=== PATIENT | female | born 1955 | race Caucasian/White ===

== ENCOUNTER 2016-10-14 14:28 | Inpatient (IN) | payer MEDICARE, OTHER ==
[2016-10-14] MEDS ORDERED: HYDROcodone/APAP 5-325MG 1 EACH TAB PO STA (15:02)
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
[2016-10-14 16:10] LABS: Appearance,Urine Clear (Clear); Bilirubin,Urine Negative (Negative); Glucose,Urine (UA) Negative (Negative); Ketones,Urine Negative (Negative); Leukocyte Esterase,Urine Negative (Negative); Nitrite,Urine Negative (Negative); PH, Urine 6.5 (5.0-8.0); Protein,Urine Negative (Negative); Specific Gravity,Urine 1.021 (1.001-1.035); UA Billing (MACRO vs. MICRO) CHEM; Urobilinogen,Urine <2.0 mg/dL (<2.0)
[2016-10-14] MEDS ORDERED: LORazepam 1 MG TAB PO STA (17:50)
[2016-10-14] MEDS ORDERED: LORazepam 1 MG TAB PO PRN (18:43)
[2016-10-14 19:46] LABS: Appearance,Urine Clear (Clear); Bilirubin,Urine Negative (Negative); Glucose,Urine (UA) Negative (Negative); Ketones,Urine Negative (Negative); Leukocyte Esterase,Urine Negative (Negative); Nitrite,Urine Negative (Negative); PH, Urine 6.5 (5.0-8.0); Protein,Urine Negative (Negative); Specific Gravity,Urine 1.022 (1.001-1.035); UA Billing (MACRO vs. MICRO) CHEM; Urobilinogen,Urine <2.0 mg/dL (<2.0)
[2016-10-14] MEDS: ACETAMINOPHEN TAB 325 MG TAB PO PRN (20:47)
[2016-10-14] MEDS ORDERED: traZODone HCL 100 MG TAB PO SCH (21:00)
--- NOTE | 2016-10-14 23:17 | P.HPMEDMHU ---
History of Present Illness H&P Date: 10/14/16 Chief Complaint: Suicidal ideation Patient is a 61-year-old female significant history of bipolar disorder and PTSD who apparently lost her son to overdose about 9 months ago, depressive symptoms worsened she stopped taking her medication and begun hearing voices and Became suicidal, she had a plan of drowning hence she was admitted to the psych unit. Patient was chronic back pain and according to her had multiple spine surgeries she also has migraine headaches for which she takes Imitrex, currently she has mild headache in the bifrontal region per Patient, was mild photophobia. She states she usually takes Tylenol No #3 for her back pain. Review of Systems Constitutional: Patient reports no fever, no chills, no weight changes, no change in appetite Eyes: Patient reports no double vision, no visual changes ENT: Patient reports no rhinorrhea, no post nasal drip, no sore throat Cardiovascular: Patient reports no chest pain, no edema, no palpitations, no syncope, no orthopnea, no paroxysmal nocturnal dyspnea. Respiratory: Patient reports no dyspnea, no cough, no wheeze Gastrointestinal: Patient reports no nausea, no vomiting, no constipation, no diarrhea Genitourinary: Patient reports no dysuria, no urinary frequency, no hematuria. Musculoskeletal: Patient reports no unusual joint pain, no joint swelling or weakness. she reports chronic low back pain Patient reports no muscular pain. Psychiatric: Patient reports no changes in mood, no sleeping problems. Patient reports no changes in memory. Endocrine: Patient reports no thirst, no polyuria, no cold intolerance, no heat intolerance. Neurological: Patient reports no unusual paresthesias, no seizures, no paresis , no paralysis, no facila droop, has mild headache. Heme/Lymphatic: Patient reports no easy bruising, no bleeding tendency, no lymphadenopathy. Allergic/ Immunologic: Patient reports no recent allergic reactions or immunologic history. Skin: Patient reports no rashes or unusual lesions. Past Medical History Past Medical History: Fibromyalgia, Hypertension, Sleep Apnea/CPAP/BIPAP Additional Past Medical History / Comment(s): bipolar; borderline personality; antisocial; eating disorder, PTSD History of Any Multi-Drug Resistant Organisms: None Reported, MRSA Date of last positivie culture/infection: 2004 MDRO Source:: unknown Past Surgical History: Back Surgery Additional Past Surgical History / Comment(s): neck surgery Past Anesthesia/Blood Transfusion Reactions: Unable to Obtain Past Psychological History: Anxiety, Bipolar, Depression, PTSD Smoking Status: Current every day smoker Past Alcohol Use History: None Reported Past Drug Use History: Cocaine Medications and Allergies Home Medications Medication Instructions Recorded Confirmed Type traZODone HCL 300 mg PO HS 09/14/13 10/14/16 History Acetaminophen-Codeine 300-30mg 1 tab PO BID 10/14/16 10/14/16 History [Tylenol #3] Aspirin 325 - 650 mg PO QID PRN 10/14/16 10/14/16 History LORazepam [Ativan] 1 mg PO BID 10/14/16 10/14/16 History Allergies Allergy/AdvReac Type Severity Reaction Status Date / Time latex Allergy Unknown Rash/Hives Verified 10/14/16 15:31 Physical Exam Vitals: Vital Signs Temp Pulse Resp BP Pulse Ox 10/14/16 19:18 98.2 F 80 18 125/75 99 10/14/16 14:37 98.1 F 79 20 127/60 98 Intake and Output 10/14/16 10/14/16 10/14/16 06:59 14:59 22:59 Other: Weight 68.039 kg 68.6 kg Patient Weight 10/15/16 06:59 Weight 68.6 kg - Constitutional General appearance: cooperative, disheveled, no acute distress - EENT Eyes: PERRLA, photophobia, dentition normal, normal appearance Ears: bilateral: normal, negative: dull - Neck Neck: no lymphadenopathy, normal ROM, no rigidity, no thyromegaly Carotids: bilateral: upstroke normal Thyroid: bilateral: normal size - Respiratory Respiratory: bilateral: CTA, negative: rhonchi, wheezing, prolonged expiration - Cardiovascular Rhythm: regular Heart sounds: normal: S1, S2 Abnormal Heart Sounds: no systolic murmur, no diastolic murmur, no S3 Gallop, no S4 Gallop - Gastrointestinal General gastrointestinal: normal bowel sounds, no organomegaly, scaphoid, soft, no tenderness - Integumentary Integumentary: no jaundiced, normal, normal turgor, no rash, no ulcer - Neurologic Neurologic: CNII-XII intact - Musculoskeletal Musculoskeletal: gait normal, strength equal bilaterally - Psychiatric Psychiatric: A&O x's 3 Cranial Nerve Examination - Cranial Nerves Cranial Nerve II- Optic: Intact Cranial Nerve III- Oculomotor: Intact Cranial Nerve IV- Trochlear: Intact Cranial Nerve V- Trigeminal: Intact Cranial Nerve - Abducens: Intact Cranial Nerve VII- Facial: Intact Cranial Nerve VIII- Auditory: Intact Cranial Nerve IX- Glossopharyngeal: Intact Cranial Nerve X- Vagus: Intact Cranial Nerve XI- Accessory: Intact Cranial Nerve XII- Hypoglossal: Intact Results Labs: Abnormal Lab Results - Last 24 Hours (Table) 10/14/16 Range/Units 16:07 U Benzodiazepines Scrn Detected H (NotDetected) Assessment and Plan (1) Suicidal ideation Narrative/Plan: Patient with the plan of drowning herself and exhibited significant depressive symptoms, we will defer to psychiatry for treatment and care. Status: Acute (2) Bipolar 1 disorder, depressed, severe Narrative/Plan: Again the patient stated depressed with suicidal ideation we will defer psychiatry for treatment and care Status: Acute (3) Cocaine abuse Narrative/Plan: Patient's admits to smoking cocaine for quite sometime, I did extensively claims counsel her regarding cessation, we would defer the psychiatric for treatment and care Status: Acute (4) Nicotine addiction Narrative/Plan: Patient admits to smoking again was counseled extensively regarding smoking cessation for more than 20 minutes Status: Acute (5) Benign essential hypertension Narrative/Plan: Per records patient has hypertension however she is not on any blood pressure medication, we would suggest to monitor her vitals signs and place her on 2 g salt diet and 81 mg aspirin for primary prevention. Status: Chronic (6) Lumbago Narrative/Plan: According to the patient she has chronic low back pain and underwent spine surgery and she takes Tylenol 3 chronically for her back pain, we will defer the psychiatry in view of her drug addiction. Status: Acute
[2016-10-15] MEDS: ACETAMINOPHEN TAB 325 MG TAB PO PRN ×4 (06:46→20:03)
[2016-10-15] MEDS ORDERED: NICOTINE 14MG/24HR PATCH TRANSDERM SCH (09:00)
[2016-10-15] MEDS: FLUoxetine HCL 10 MG CAP PO SCH (10:30)
[2016-10-15] MEDS: HYDROcodone/APAP 5-325MG 1 EACH TAB PO PRN ×2 (11:41→23:42)
[2016-10-15 12:09] LABS: ALT 26 U/L (9-52); AST 16 U/L (14-36); Alkaline Phosphatase 75 U/L (38-126); Blood Urea Nitrogen 27 mg/dL (7-17); Calcium 9.4 mg/dL (8.4-10.2); Carbon Dioxide 18 mmol/L (22-30); Glucose 82 mg/dL (74-99); Non-African American GFR(MDRD) >60 (>60 ml/min/1.73 sqM); Potassium 4.3 mmol/L (3.5-5.1); Sodium 145 mmol/L (137-145); Total Bilirubin 0.3 mg/dL (0.2-1.3); Total Protein 6.6 g/dL (6.3-8.2)
[2016-10-15 12:11] LABS: Anion Gap 12 mmol/L; Chloride 115 mmol/L (98-107)
[2016-10-15 12:24] LABS: Anisocytosis Slight; Basophils % (A) 0 %; CH 29.1; CHCM 31.9; Eosinophils # (A) 0.1 k/uL (0-0.7); Eosinophils % (A) 2 %; HCT 37.8 % (34.0-46.0); HDW 2.82; HGB 12.3 gm/dL (11.4-16.0); Hypochromasia Slight; Luc # (Auto) 0.14; Luc % (Auto) 3; Lymphocytes # (A) 2.1 k/uL (1.0-4.8); Lymphocytes % (A) 41 %; MCH 29.9 pg (25.0-35.0); MCHC 32.5 g/dL (31.0-37.0); MCV 91.9 fL (80.0-100.0); Mean Platelet Volume 7.5; Monocytes # (A) 0.3 k/uL (0-1.0); Monocytes % (A) 6 %; Neutrophils # (A) 2.5 k/uL (1.3-7.7); Neutrophils % (A) 49 %; RBC 4.12 m/uL (3.80-5.40); RDW 16.3 % (11.5-15.5); WBC 5.1 k/uL (3.8-10.6); WBC (Perox) 5.38
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
[2016-10-15] MEDS: LORazepam 0.5 MG TAB PO SCH (20:02)
[2016-10-15] MEDS: traZODone HCL 100 MG TAB PO SCH (20:02)
[2016-10-15] MEDS: OLANZapine 2.5 MG TAB PO SCH (20:02)
[2016-10-16] MEDS: ACETAMINOPHEN TAB 325 MG TAB PO PRN ×3 (06:22→17:42)
[2016-10-16] MEDS: FLUoxetine HCL 10 MG CAP PO SCH (08:44)
[2016-10-16] MEDS: LORazepam 1 MG TAB PO SCH (08:44)
[2016-10-16] MEDS: HYDROcodone/APAP 5-325MG 1 EACH TAB PO PRN ×3 (08:44→21:04)
--- NOTE | 2016-10-16 13:11 | P.PN ---
Progress Note - Text Interval History: Patient is a 61-year-old female who was admitted for suicidal plan to drowned herself on December 18. Patient today was able to report that she did well when she was on the combination of Cymbalta plus lithium in [place] , she was also taking Seroquel at that time. Patient states that the auditory hallucinations are slightly decreased today, she did not sleep through the night. Patient reports that she continues to have the plan to drowned herself on the anniversary of her son's and states that she was also thinking about suicide yesterday while in the hospital. Patient reports that she is trying to eat better and is trying to eat something at each meal. Patient remains despondent, hopeless and states she has little interest or energy to do things. Patient reported that her right ankle continues to bother her, 3 weeks ago she states she "rolled" her ankle saw her primary care doctor but no x-rays were taken at that time. Patient continues to use a walker here and states that her right ankle continues to cause her pain and difficulty when walking. Patient reports that her pain continues to be an issue for her and requested that the [place] be every 8 hours as her pain is more problematic during the day than it is at night. Patient reported that she is continuing to feel anxious and restless but this is not increased with the decrease in her Ativan. Mental Status: Appearance/Attitude: Patient is dressed in a hospital gown and using a walker, she makes good eye contact and is cooperative, patient was noted to be wearing a man's shirt and she stated this was her son's. Behavior: Patient did not display any psychomotor agitation or retardation Speech/Language: Patient's speech is more spontaneous today, of normal volume and rhythm and she is coherent. Thought Process: Patient is goal-directed and there is no evidence of any circumstantial or tangential thought and no loose associations or flight of ideas. Thought Content: Patient reports the auditory hallucinations are slightly decreased today, no visual hallucinations and no delusions or paranoid ideation were elicited. Patient continues to feel depressed, hopeless and helpless and states that her life is not worth living without her son. Patient continues to report somatic complaints regarding her chronic pain, pain in her right ankle and generally not feeling well. Patient states that she is trying to eat something at each meal and reports that her sleep remains disrupted and not restful. Suicidal/Homicidal Ideation: Patient voiced to me that she had suicidal thoughts yesterday about trying to kill herself, she continues to have a plan to drowned herself on the anniversary of her son's and states that she sees no reason to go on with her life, she denies any current homicidal ideation. Sensorium/Cognition: Patient is alert, oriented to person, place, and time and her memory is grossly intact. Mood/Affect: Patient's mood remains depressed and despondent and her affect is blunted Insight/Judgement: Patient's insight and judgment are poor Assessment: Patient today was able to report that the combination of Cymbalta and lithium that she was placed on in [place] did work for her depression and states that she felt better on those medications. She was also on Seroquel at the time, however this was not effective for her current auditory hallucinations. Patient states her medications were changed when she returned to [place]. Patient continues to express suicidal ideation, continues to report having a plan to drowned herself on December 18 the anniversary of her son 's . She reports that she is trying to eat 3 times a day and she reports continued disrupted sleep. Patient also continues to report complaints of pain and requested that the frequency of her [place] be adjusted. Patient's TSH was noted to be low, her free T4 is also low and she states that she may have been on Synthroid in the past. Plan: The patient was able to report a better response to Cymbalta and lithium I will discontinue her Prozac and begin Cymbalta 30 mg in the morning starting tomorrow to target her depression. I will begin with him carbonate 150 mg twice a day to stabilize her mood and target her suicidal ideation. Patient reports that the Zyprexa has been more effective in decreasing her auditory hallucinations and we'll continue at 2.5 mg at bedtime and consider an increase to 5 mg at bedtime should she continue to have auditory hallucinations. Patient 's trazodone will be continued at 200 mg at bedtime and as her sleep improves we 'll hopefully be able to decrease this medication due to the patient's multiple falls in the past. I also increased the frequency of her [place] to 3 times a day as needed and she reports that 12 hour span's between the medication are not effective for her. Patient's Ativan as currently at 1.5 mg total per day and will continue her taper and on Wednesday will taper 2.5 mg twice a day. She patient tolerated the lithium carbonate will increase her dose to 300 mg twice a day and obtain serum level of lithium several days later. Patient was encouraged to continue attending groups and activities, was encouraged to continue to try to improve her nutrition. Medical consultants will evaluate her thyroid results, and also asked them to evaluate her right ankle and the need for any further studies. Patient continues to require inpatient hospitalization due to her psychotic symptoms, suicidal ideation with plan and depressed mood.
--- NOTE | 2016-10-16 15:57 | P.PN ---
Subjective Principal diagnosis: Patient seen and examined today per RN request to evaluate right ankle and abnormal labs 61-year-old female with history of bipolar disorder and PTSD who apparently lost her son to overdose about 9 months ago, depressive symptoms worsened she stopped taking her medication and begun hearing voices and Became suicidal, she had a plan of drowning hence she was admitted to the psych unit. Upon doing routine labs, she was found to have hypothyroidism, patient admits to remote history of hypothyroidism and that she was started on levothyroxin at one point in her life. However, when she established a new PCP few years ago, she was found to have polypharmacy and she believes that levothyroxine was stopped by her doctor in an attempt to decrease the number of medications she was taking. She denies any cold intolerence or weight gain. but admits to depressed mood, constipation, and generalized fatigue. She is not aware of any recent workup for this problem. She is not currently taking any hormonal therapy for her thyroid problem. She is not aware of any hormonal imbalance in her body other than the thyroid gland, and does not recall a diagnosis of central hypothyroidism. She denies any weight gain, but reports some subjective weight loss due to poor appetite. Patient also reporting right ankle pain of 3 weeks duration after sustaining a fall at home and twisting her right foot. She reports that she was seen by her PCP at that time, and was told there was no fracture, however she is voicing concerns as pain is not subsiding, she is reporting an achy pain of 8/10 in severity localized to the right ankle non-radiating, worse with movement and weight bearing, she has been using a cane at home, and a walker while inpatient to avoid full weight bearing. she reports morning stiffness that lasts all day, patient is getting some relief of her pain with tylenol #3 or norco. minimal swelling of the right ankle, no bruising or open wounds. Objective - Vital Signs Vital signs: Vital Signs Temp 98.1 F 10/16/16 06:39 Pulse 59 L 10/16/16 06:39 Resp 18 10/16/16 06:39 BP 108/54 10/16/16 06:39 Pulse Ox 99 10/14/16 19:18 Constitutional: vital signs stable, Not in acute distress, conversant Neck: Supple, no thyromegally Extremities: No digital cyanosis or clubbing, peripheral pulses palpable and equal over bilateral rdorsalis pedis arteries, no calf muscle tenderness, no leg edema there is minimal ankle swelling, full passive and active range of motion of bilateral feet, however, strength exam over right foot is limited due to ankle pain. No crepitation, no redness, no bruising, no point tenderness over the medial or lateral malleoli. Labs reviewed Right ankle xray reviewed - Labs CBC & Chem 7: 10/15/16 11:16 10/15/16 11:16 Labs: Abnormal Lab Results - Last 24 Hours (Table) 10/15/16 Range/Units 11:15 Free T4 0.74 L (0.78-2.19) ng/dL Assessment and Plan (1) Central hypothyroidism Narrative/Plan: This is incidental finding upon routine blood work Suspicion for central hypothyroidism Workup includes ruling out a coexisting adrenal insufficiency check cosyntropin stimulation test (AM cortisol, followed by ACTH injection , then timely testing cortisol level in 30 and then 60 minutes after injection) check Prolactine (to r/o pituitary problems) check FSH (r/o hypogonadism) check thyroid peroxidase antibodies patient will also benefit from MRI of the brain to r/o any masses recommendation to follow up with Endocrinology as OP patient will require 112.5 mcg of levothyroxine daily , and then to recheck TFTs in 4 weeks. Adrenal insufficiency should be ruled out first (with consyntropin stimulation testing) prior to initiating thyroid hormone replacement. Status: Acute (2) Right ankle sprain Narrative/Plan: unlikely to have acute fracture i reviewed the xray image, await radiology report continue with pain control Physical therapy evaluation for further recommendations regarding therapeutic exercising and weightbearing right ankle brace could be beneficial Status: Acute (3) Depression Narrative/Plan: Management per psychiatry Status: Acute (4) Suicidal ideation Narrative/Plan: Management per psychiatry Status: Acute
--- NOTE | 2016-10-16 16:05 | XR ---
Right ankle HISTORY: Remote history of trauma and pain 2 views of the right ankle No comparisons Bone mineralization is reduced. Some spurring present at the tibiotalar joint with joint space loss. There is a plantar calcaneal spur. Alignment is maintained. Soft tissue swelling is noted. IMPRESSION: Soft tissue swelling, osteoarthritis. Osteopenia.
[2016-10-16] MEDS: traZODone HCL 100 MG TAB PO SCH (20:17)
[2016-10-16] MEDS: LITHIUM CARBONATE 150 MG CAP PO SCH (20:17)
[2016-10-16] MEDS: LORazepam 0.5 MG TAB PO SCH (20:17)
[2016-10-16] MEDS: OLANZapine 2.5 MG TAB PO SCH (20:17)
[2016-10-17] MEDS: HYDROcodone/APAP 5-325MG 1 EACH TAB PO PRN ×3 (07:41→22:32)
[2016-10-17] MEDS ORDERED: WATER FOR INJECTION, STERILE 10 ML IV ONE (07:46)
[2016-10-17] MEDS ORDERED: COSYNTROPIN 0.25 MG VIAL IVP ONE (08:00)
[2016-10-17] MEDS ORDERED: COSYNTROPIN 0.25 MG VIAL IM ONE (08:00)
[2016-10-17] MEDS: LITHIUM CARBONATE 150 MG CAP PO SCH ×2 (09:25→20:20)
[2016-10-17] MEDS: DULoxetine HCL 30 MG CAPSULE.DR PO SCH (09:25)
[2016-10-17] MEDS: ACETAMINOPHEN TAB 325 MG TAB PO PRN ×2 (09:25→16:48)
[2016-10-17] MEDS: LORazepam 1 MG TAB PO SCH (09:28)
--- NOTE | 2016-10-17 11:57 | P.PN ---
Progress Note - Text Interval history: The patient is found in group she follows me to an interview room. She reports that she continues to feel extremely depressed she feels hopeless and suicidal. She states it is her plan to kill herself on the anniversary of her son's . She explains he due to a medication overdose. We reviewed her current medications. She has some concern that the Cymbalta will be too costly and this will deserve further exploration in terms of her co-pay. We spent some time trying to cognitively reframe her current thinking and generate some alternatives. Mental status exam: The patient is alert she is dressed in hospital attire with her own sweater over top. Eye contact is appropriate. She endorses a sad depressed mood with ongoing suicidal ideation. She is tearful throughout the session. She is soft-spoken she demonstrates no verbal or physical aggressiveness. She demonstrates no pressured speech. Thought process is linear she demonstrates no tangential thinking loose associations or flight of ideas. There is no report or evidence of psychosis. She is fully oriented to person place and date. Plan: The patient will continue on her current psychotropic medications. We will monitor for safety and encourage her participation in the milieu. Vital signs reviewed. She requires continued psychiatric hospitalization.
--- NOTE | 2016-10-17 16:55 | P.PN ---
Subjective Principal diagnosis: Patient seen and examined today in follow up for central hypothyroidism, reviewing workup to rule out glucocorticoid deficiency 61-year-old female with history of bipolar disorder and PTSD who apparently lost her son to overdose about 9 months ago, depressive symptoms worsened she stopped taking her medication and begun hearing voices and Became suicidal, she had a plan of drowning hence she was admitted to the psych unit. Patient was seen and examined today, continues to report right ankle pain when moving. I discussed with her blood work results and explained in details. Patient agrees on starting levothyroxin and I counseled her regarding proper way of taking the medication. Patient reports chronic headache "since she was a child" No recent changes in character or severity, no associated vision changes or hearing changes or any focal neurologic deficits. Patient denies any nausea or vomiting Objective - Vital Signs Vital signs: Vital Signs Temp 98.2 F 10/17/16 07:06 Pulse 50 L 10/17/16 07:06 Resp 16 10/17/16 07:06 BP 109/55 10/17/16 07:06 Pulse Ox 99 10/14/16 19:18 Constitutional: vital signs stable, Not in acute distress, conversant Lungs: Clear to auscultation bilaterally, clear to percussion, normal respiratory effort no use of accessory muscles Extremities: no leg edema bilaterally, no calf muscle tenderness Psych: Alert, oriented to place, person and time labs and imaging reviewed - Labs CBC & Chem 7: 10/15/16 11:16 10/15/16 11:16 Assessment and Plan (1) Central hypothyroidism Narrative/Plan: cosyntropin stimulation test was within normal limit, no suspicion for adrenal insufficiency other hormones related to the pituitary gland were within normal limits ( Prolactine, FSH, thyroid peroxidase antibodies) patient reports long history of chronic headache "since childhood " with no recent changes in character or severity, patient might benefit from MRI of the brain as an outpatient recommendation to follow up with Endocrinology as OP start on 112.5 mcg of levothyroxine daily , and then to recheck TFTs in 4 weeks. Status: Acute (2) Osteoarthritis of right ankle Narrative/Plan: Right ankle imaging reviewed no acute fracture Evidence of osteoarthritis Pain control with Tylenol Status: Acute (3) Right ankle sprain Narrative/Plan: Physical therapy evaluation for further recommendations regarding therapeutic exercising and weightbearing right ankle brace could be beneficial Status: Acute (4) Depression Narrative/Plan: Management per psychiatry Status: Acute (5) Suicidal ideation Narrative/Plan: Management per psychiatry Status: Acute
[2016-10-17] MEDS: traZODone HCL 100 MG TAB PO SCH (20:20)
[2016-10-17] MEDS: LORazepam 0.5 MG TAB PO SCH (20:20)
[2016-10-17] MEDS: OLANZapine 2.5 MG TAB PO SCH (20:20)
[2016-10-18] MEDS: ACETAMINOPHEN TAB 325 MG TAB PO PRN ×3 (05:51→20:23)
[2016-10-18] MEDS: LEVOTHYROXINE 112 MCG TAB PO SCH (05:52)
[2016-10-18] MEDS: HYDROcodone/APAP 5-325MG 1 EACH TAB PO PRN ×3 (08:02→23:06)
[2016-10-18] MEDS: DULoxetine HCL 30 MG CAPSULE.DR PO SCH (10:52)
[2016-10-18] MEDS: LITHIUM CARBONATE 150 MG CAP PO SCH ×2 (10:52→20:22)
[2016-10-18] MEDS: LORazepam 1 MG TAB PO SCH (10:54)
--- NOTE | 2016-10-18 12:36 | P.PN ---
Progress Note - Text Interval history: The patient's found the hallway she follows me to an interview room. She reports her mood continues to be depressed she is tearful at times. Continues to read the anniversary of her son's . She did have a pleasant visit from her son and daughter last evening. She reports feeling anxious throughout the day and asked for more Ativan area instead we decided to change the bedtime dose to earlier in place and at 5 PM. She has no other questions regarding her medications. She has been selectively attending groups. Mental status exam: The patient is alert she is dressed in hospital gown with her own clothing over top. She is ambulating with use of a walker today. Eye contact is appropriate speech is fluent spontaneous nonpressured. She does not appear hypomanic or manic. She endorses a depressed mood with continued consideration of suicide. She does make some attempts during the interview to foster some future oriented thinking but ultimately feels overwhelmed by the of her son. Insight and judgment limited. She demonstrates no verbal or physical aggressiveness. Affect is mainly constricted. Plan: The patient will continue on her current medications we will change the timing of the 0.5 Ativan from bedtime to 5 PM. Internal medicine is following the patient closely their input is appreciated. She does require imaging as an outpatient for presumed central hypothyroidism. We will continue to monitor her for safety she is encouraged to participate in the milieu.
[2016-10-18 16:38] VITALS: BMI 27.9
[2016-10-18] MEDS ORDERED: LORazepam 0.5 MG TAB PO STA (18:43)
[2016-10-18] MEDS: OLANZapine 2.5 MG TAB PO SCH (20:22)
[2016-10-18] MEDS: traZODone HCL 100 MG TAB PO SCH (20:22)
[2016-10-19] MEDS: LEVOTHYROXINE 112 MCG TAB PO SCH (05:40)
[2016-10-19] MEDS: ACETAMINOPHEN TAB 325 MG TAB PO PRN ×3 (05:42→21:10)
[2016-10-19] MEDS: HYDROcodone/APAP 5-325MG 1 EACH TAB PO PRN ×3 (09:00→22:43)
[2016-10-19] MEDS: DULoxetine HCL 30 MG CAPSULE.DR PO SCH (09:02)
[2016-10-19] MEDS: LORazepam 1 MG TAB PO SCH ×2 (09:02→15:58)
[2016-10-19] MEDS: LITHIUM CARBONATE 150 MG CAP PO SCH (09:02)
--- NOTE | 2016-10-19 11:39 | P.PN ---
Progress Note - Text Interval History: Patient is a 61-year-old female who was seen today, she reports that she is feeling anxious and still having panic attacks. She requested her Ativan be changed to earlier in the evening. Patient states that she visited with her son and daughter over the weekend and that was a good visit and her visited last evening and she states that he was critical it was a stressful visit and she asked him to leave. She states that she told her she wants her daughter to assist her with her finances and he said that if she did that he would leave. Patient states that her uses crack cocaine and is also on disability. Patient reports that she is not hearing voices, sleeping about 5 hours a night and is eating better. She continues to have suicidal plan for December 19 but reports no current plans to act while she is in the hospital or before that date. Patient reported no from side effects the medication. Mental Status: Appearance/Attitude: Patient was wearing a sweater over a hospital gown, using a walker, made good eye contact and was cooperative. Behavior: Patient displayed no psychomotor agitation or psychomotor retardation today Speech/Language: Patient's speech was more spontaneous, normal volume and rhythm and she was coherent. Thought Process: Patient was goal-directed and there was no evidence of any circumstantial or tangential thought and no loose associations or flight of ideas. Thought Content: Patient denied any auditory or visual hallucinations and no delusions or paranoid ideation were elicited. Patient continues to think about committing suicide on December 19 the one-year anniversary of her son's but states that it may not be a good idea. She reports that she is not thinking about suicide currently. Patient states that she slept about 5 hours and her appetite is slightly improved. She continues to discuss her poor relationship with her and feeling trapped there due to financial concerns, lack of transportation. Patient states she is not as hopeless as she was on admission. Suicidal/Homicidal Ideation: Patient denied any current suicidal thoughts but states that she continues to plan suicide on December 19 but he is questioning whether this is a good idea or not and denies any current homicidal ideation. Sensorium/Cognition: Patient is alert and oriented to person, place, and time and her memory is grossly intact. Mood/Affect: Patient's mood is brighter today she remains depressed and her affect is appropriate. Insight/Judgement: Patient's insight and judgment are fair. Assessment: Patient has been attending groups and activities, and reported a positive visit with her son and daughter and asked her to end the visit yesterday evening due to his being critical of her appearance. Patient is beginning to question whether committing suicide on December 19 is a good idea or not, is not a psychomotor retarded as she was on admission and her affect is oleary. Patient has also been started on Synthroid replacement. Patient reported no side effects from the medication. Patient is ambulating better and reports that her pain is controlled, still using a walker to ambulate. Plan: Patient and I discussed continuing trazodone 200 mg at night to assist with her sleep, Zyprexa 2.5 mg at bedtime to target her psychotic symptoms and will increase the Cymbalta to 60 mg in the morning to target her depression and will increase lithium carbonate to 300 mg twice a day as a mood stabilizer. Will obtain a lithium level after patient has been on 300 mg twice a day for 3 days. Patient will also continue on Ativan 1 mg in the morning and 0.5 mg in the late afternoon to target her anxiety. Patient was encouraged to continue to attend groups and activities. Patient continues to require hospitalization due to her suicidal plan for December 19 as well as her depressive symptoms.
[2016-10-19] MEDS: MAG HYDROX/AL HYDROX/SIMETH 30 ML CUP PO PRN ×2 (15:22→18:55)
[2016-10-19] MEDS ORDERED: LORazepam 0.5 MG TAB PO SCH (17:00)
[2016-10-19] MEDS: traZODone HCL 100 MG TAB PO SCH (21:09)
[2016-10-19] MEDS: OLANZapine 2.5 MG TAB PO SCH (21:09)
[2016-10-19] MEDS: LITHIUM CARBONATE 300 MG CAP PO SCH (21:09)
[2016-10-20] MEDS: LEVOTHYROXINE 112 MCG TAB PO SCH (07:05)
[2016-10-20] MEDS: HYDROcodone/APAP 5-325MG 1 EACH TAB PO PRN ×3 (07:07→21:24)
[2016-10-20] MEDS: LITHIUM CARBONATE 300 MG CAP PO SCH ×2 (09:07→20:17)
[2016-10-20] MEDS: DULoxetine HCL 60 MG CAPSULE.DR PO SCH (09:07)
[2016-10-20] MEDS: LORazepam 1 MG TAB PO SCH ×2 (09:07→17:09)
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
[2016-10-20] MEDS: ACETAMINOPHEN TAB 325 MG TAB PO PRN ×2 (13:17→19:30)
[2016-10-20] MEDS: MAG HYDROX/AL HYDROX/SIMETH 30 ML CUP PO PRN ×2 (14:21→19:30)
[2016-10-20] MEDS: traZODone HCL 100 MG TAB PO SCH (20:18)
[2016-10-20] MEDS: OLANZapine 2.5 MG TAB PO SCH (20:18)
[2016-10-21] MEDS: ACETAMINOPHEN TAB 325 MG TAB PO PRN ×3 (03:21→23:16)
[2016-10-21] MEDS: LEVOTHYROXINE 112 MCG TAB PO SCH (05:54)
[2016-10-21] MEDS: HYDROcodone/APAP 5-325MG 1 EACH TAB PO PRN ×3 (06:09→20:45)
[2016-10-21] MEDS: DULoxetine HCL 60 MG CAPSULE.DR PO SCH (08:53)
[2016-10-21] MEDS: LORazepam 1 MG TAB PO SCH ×2 (08:53→17:08)
[2016-10-21] MEDS: LITHIUM CARBONATE 300 MG CAP PO SCH ×2 (08:53→20:45)
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
[2016-10-21] MEDS: OLANZapine 2.5 MG TAB PO SCH (20:45)
[2016-10-21] MEDS: traZODone HCL 100 MG TAB PO SCH (20:45)
[2016-10-22] MEDS: HYDROcodone/APAP 5-325MG 1 EACH TAB PO PRN ×2 (04:53→12:18)
[2016-10-22] MEDS: LEVOTHYROXINE 112 MCG TAB PO SCH (05:31)
[2016-10-22] MEDS: LORazepam 1 MG TAB PO SCH ×2 (08:08→16:31)
[2016-10-22] MEDS: DULoxetine HCL 60 MG CAPSULE.DR PO SCH (08:08)
[2016-10-22] MEDS: LITHIUM CARBONATE 300 MG CAP PO SCH ×2 (08:08→20:28)
[2016-10-22] MEDS: ACETAMINOPHEN TAB 325 MG TAB PO PRN ×3 (08:08→23:19)
[2016-10-22] MEDS: PANTOPRAZOLE 40 MG TABLET PO SCH ×2 (09:55→17:22)
--- NOTE | 2016-10-22 11:03 | P.PN ---
Subjective Principal diagnosis: Right ankle pain Patient is a 61-year-old female with a past medical history of depression, bipolar disorder, IBS-C and intermittent peripheral edema who is admitted for depression and suicidal ideation. We have been asked to evaluate the patient regarding lower extremity edema and right ankle pain. She has been diagnosed with a right ankle sprain. Physical therapy has already been consulted. Patient states that she injured her right ankle approximately 1-2 weeks ago. It hurts worse with ambulation, is better with rest. She's been taking Tylenol which seems to help ease the pain. She reports that she had some lower extremity edema approximately 2 days ago. She has intermittent shortness of breath when walking long distances. She also complains of abdominal cramping, she states it is worse when she is getting anxious, she has been unable to eat secondary to this. She reports that she has a history of irritable bowel syndrome with constipation. She's been taking MiraLAX. Has been having one to 2 bowel movements weekly which is typical for her. She denies any blood in her stools or dark tarry stools. Objective - Vital Signs Vital signs: Vital Signs Temp 97.8 F 10/22/16 05:00 Pulse 69 10/22/16 05:00 Resp 18 10/22/16 05:00 BP 101/55 10/22/16 05:00 Pulse Ox 97 10/18/16 16:26 - Exam General: non toxic, no distress, appears at stated age, disheveled Derm: no rashes, no lesions Head: atraumatic, normocephalic, symmetric Eyes: EOMI, no lid lag, anicteric sclera ENT: no post nasal drip, no thrush Mouth: no lip lesion, mucus membranes moist Cardiovascular: S1S2 reg, no murmur, positive posterior tibial pulse bilateral, Lungs: CTA bilateral, no rhonchi, no rales , no accessory muscle use Abdominal: soft, nontender to palpation, no guarding, no appreciable organomegaly Ext: no gross muscle atrophy, no edema, no contractures, pain to palpation over right lateral malleoli, normal range of motion in right ankle, no ligamentous laxity right inguinal Neuro: CN II-XI grossly intact, no focal neuro deficits Psych: Alert, oriented, appropriate affect - Labs CBC & Chem 7: 10/15/16 11:16 10/15/16 11:16 Assessment and Plan (1) Irritable bowel syndrome with constipation Narrative/Plan: Her stomach cramping is slightly being exacerbated by anxiety. Will add daily Protonix. Could consider Fela continues to have stomach cramping despite Protonix being added. However this does have interactions with patient's Zyprexa and would attempt to avoid at this time Status: Acute (2) Right ankle sprain Narrative/Plan: Apply Tony wrap when ambulating, physical therapy consult placed prior, and Tylenol for pain control Status: Acute (3) Central hypothyroidism Narrative/Plan: Continue with Synthroid 112.5 g daily, recommended recheck TSH/T4 in 4 weeks consider outpatient endocrine evaluation if primary care physician in agreement , could consider MRI brain as an outpatient for chronic headache, corticotropin stim test was within normal limits which rules out suspicion for adrenal insufficiency, prolactin and FSH were normal, Status: Acute (4) Benign essential hypertension Narrative/Plan: Currently controlled off medications. We'll continue to follow blood pressure during hospitalization. Status: Chronic (5) Bipolar 1 disorder, depressed, severe Narrative/Plan: Treatment as per primary team. Status: Acute Plan: Thank you for allowing us to participate in the care of this patient. We will follow peripherally. Do not hesitate to contact us with questions. Someone can be reached from the [facility] hospitalist group at all hours of the day at [phone].
[2016-10-22] MEDS ORDERED: ONDANSETRON 4 MG TAB PO PRN (11:04)
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
[2016-10-22] MEDS: traZODone HCL 100 MG TAB PO SCH (20:28)
[2016-10-22] MEDS: OLANZapine 5 MG TAB PO SCH (20:31)
[2016-10-23] MEDS: HYDROcodone/APAP 5-325MG 1 EACH TAB PO PRN ×3 (05:05→20:31)
[2016-10-23] MEDS: LEVOTHYROXINE 112 MCG TAB PO SCH (06:14)
[2016-10-23] MEDS: LORazepam 1 MG TAB PO SCH ×2 (08:56→16:46)
[2016-10-23] MEDS: LITHIUM CARBONATE 300 MG CAP PO SCH (08:56)
[2016-10-23] MEDS: PANTOPRAZOLE 40 MG TABLET PO SCH ×2 (08:57→16:46)
[2016-10-23] MEDS: DULoxetine HCL 60 MG CAPSULE.DR PO SCH (08:57)
[2016-10-23] MEDS: ACETAMINOPHEN TAB 325 MG TAB PO PRN ×3 (08:57→23:25)
--- NOTE | 2016-10-23 12:48 | P.PN ---
Progress Note - Text Interval History: Patient is a 61-year-old female who was seen today and she states that she was feeling slightly more depressed, due to discussing her feelings of anger and of being frightened. Patient states that the voices are no longer present and she continues to have disrupted sleep partly due to her pain and partly due to her sleep apnea which is untreated. Patient reports that her pain persists and she lies down frequently during the day. Patient reports she is no longer thinking of suicide on the anniversary of her son's . She states that she is focusing on the positive aspects of his life. Patient and I also discussed her plans to return home and how to cope with her 's criticism. Patient reported no side effects from the medication and states that she is feeling less depressed. Mental Status: Appearance/Attitude: Patient was dressed in street clothes today and continues to use a walker and made good eye contact and was cooperative. Behavior: Patient does not display any psychomotor agitation or retardation. Speech/Language: Patient's speech is spontaneous, normal volume and rhythm and she is coherent. Thought Process: Patient is goal-directed, no evidence of circumstantial or tangential thought and no loose associations or flight of ideas. Thought Content: Patient denies any auditory or visual hallucinations no delusions or paranoid ideation were elicited. Patient states that she is no longer contemplating suicide on the anniversary of her son's . Patient has begun to discuss her feelings of anger over her son's as well as her fears as a child. Patient reports that she continues to have disruptive sleep and her appetite is good. Patient states she is focusing on positive aspects of her son's life Suicidal/Homicidal Ideation: Patient denies any current suicidal or homicidal ideation Sensorium/Cognition: Patient is alert and oriented to person, place and time and her memory is grossly intact. Mood/Affect:patient's mood is slightly more depressed today and her affect is slightly blunted. Insight/Judgement: Patient's insight and judgement are fair patient Assessment: Patient is reporting feeling more depressed today and she thinks it may be due to her beginning to discuss feelings that she has. Patient reports no further auditory hallucinations and no further plans to commit suicide on the anniversary of her son's . Patient's lithium level was 0.5 mg which is subtherapeutic. Patient has been eating well and attending groups and activities. Plan: Patient was encouraged to continue attending groups and activities, will increase her lithium to 450 mg twice a day and repeat a lithium level early next week. Patient's Cymbalta will be increased to 60 mg in the morning and 30 mg at 5 PM to target her depression. She will continue on her current doses of trazodone and Ativan and she will continue on her current dose of Zyprexa. Patient and I discussed at length her decision to return home to live with her and coping strategies. Patient and I also discussed her grief and grieving for the loss of her son and encouraged her to continue thinking of positive aspects of his life. Patient will be discharged early next week once she is stable on her medications and no longer expressing any suicidal ideation with plan.]
[2016-10-23] MEDS: DULoxetine HCL 30 MG CAPSULE.DR PO SCH (16:46)
[2016-10-23] MEDS: MAGNESIUM HYDROXIDE 2,400 MG/10 ML CUP PO PRN (20:30)
[2016-10-23] MEDS: traZODone HCL 100 MG TAB PO SCH (20:32)
[2016-10-23] MEDS: LITHIUM CARBONATE 150 MG CAP PO SCH (20:32)
[2016-10-23] MEDS: OLANZapine 5 MG TAB PO SCH (20:32)
[2016-10-24] MEDS: LEVOTHYROXINE 112 MCG TAB PO SCH (04:48)
[2016-10-24] MEDS: HYDROcodone/APAP 5-325MG 1 EACH TAB PO PRN ×3 (04:48→20:39)
[2016-10-24] MEDS: LITHIUM CARBONATE 150 MG CAP PO SCH ×2 (08:29→20:38)
[2016-10-24] MEDS: ACETAMINOPHEN TAB 325 MG TAB PO PRN ×3 (08:29→23:33)
[2016-10-24] MEDS: DULoxetine HCL 60 MG CAPSULE.DR PO SCH (08:30)
[2016-10-24] MEDS: LORazepam 1 MG TAB PO SCH ×3 (08:30→18:57)
[2016-10-24] MEDS: PANTOPRAZOLE 40 MG TABLET PO SCH ×2 (08:30→16:29)
--- NOTE | 2016-10-24 12:29 | P.PN ---
Progress Note - Text Interval history: Patient is seen in cross coverage today for Dr. Diana. She reports that she didn't sleep that well last night. She complains of stomach discomfort and bowel problems affecting her food intake. She does feel like her mood is doing better but still could be better. She had a family meeting today with her and son which seemed to go well. She felt that they were supportive. She was able to communicate some stressors with them. Mental status exam: She is alert and cooperative with the interview. She has a walker. She describes her mood is doing better but still could be better. She denies any thoughts of harm to self or others. She denies any hallucinations. She does not show any agitation. Plan: We'll maintain current psychotropic medications. We'll ask medical to follow-up regarding complaints of stomach discomfort and bowel problems affecting food intake. We'll continue to cover for through the weekend.
[2016-10-24] MEDS: DULoxetine HCL 30 MG CAPSULE.DR PO SCH (16:29)
[2016-10-24] MEDS: traZODone HCL 100 MG TAB PO SCH (20:38)
[2016-10-24] MEDS: OLANZapine 5 MG TAB PO SCH (20:38)
[2016-10-25] MEDS: HYDROcodone/APAP 5-325MG 1 EACH TAB PO PRN ×3 (04:16→20:41)
[2016-10-25] MEDS: LEVOTHYROXINE 112 MCG TAB PO SCH (05:44)
[2016-10-25] MEDS: PANTOPRAZOLE 40 MG TABLET PO SCH ×2 (08:43→16:44)
[2016-10-25] MEDS: DULoxetine HCL 60 MG CAPSULE.DR PO SCH (08:43)
[2016-10-25] MEDS: LORazepam 1 MG TAB PO SCH ×3 (08:43→18:07)
[2016-10-25] MEDS: ACETAMINOPHEN TAB 325 MG TAB PO PRN ×3 (08:44→22:54)
[2016-10-25] MEDS: LITHIUM CARBONATE 150 MG CAP PO SCH ×2 (08:44→20:41)
--- NOTE | 2016-10-25 15:54 | P.PN ---
Progress Note - Text Interval history: Patient reports that she had a good family meeting yesterday with her and son. She states that she then talked to her on the phone and he told her that she had either to live with him or her son which has bothered her. She states that her mood is depressed and fluctuating. She did not sleep well last night. She is eating today and her stomach seems to be better today. Mental status exam: She is alert and cooperative with the interview. Her speech is fluent, not rapid or pressured. She describes her mood is depressed. She does not show any agitation. She does not verbalize any thoughts of harm to self or others. No evidence of active psychosis. Lahn: We'll continue current psychotropic medications and monitor her ongoing response. We'll monitor for any medication side effects. Consideration would be given to changing the Cymbalta to all in the morning if it is potentially activating her at night. Continue to monitor her sleep. Dr. Diana to resume care this patient starting tomorrow.
[2016-10-25] MEDS: DULoxetine HCL 30 MG CAPSULE.DR PO SCH (16:44)
[2016-10-25] MEDS: OLANZapine 5 MG TAB PO SCH (20:41)
[2016-10-25] MEDS: traZODone HCL 100 MG TAB PO SCH (20:41)
[2016-10-26] MEDS: ACETAMINOPHEN TAB 325 MG TAB PO PRN ×4 (02:57→23:52)
[2016-10-26] MEDS: LEVOTHYROXINE 112 MCG TAB PO SCH (04:47)
[2016-10-26] MEDS: HYDROcodone/APAP 5-325MG 1 EACH TAB PO PRN ×3 (04:48→20:46)
[2016-10-26] MEDS: LORazepam 1 MG TAB PO SCH ×2 (09:13→17:01)
[2016-10-26] MEDS: LITHIUM CARBONATE 150 MG CAP PO SCH ×2 (09:13→20:45)
[2016-10-26] MEDS: DULoxetine HCL 60 MG CAPSULE.DR PO SCH (09:13)
[2016-10-26] MEDS: PANTOPRAZOLE 40 MG TABLET PO SCH ×2 (09:13→17:01)
[2016-10-26] MEDS: MAGNESIUM HYDROXIDE 2,400 MG/10 ML CUP PO PRN (11:01)
--- NOTE | 2016-10-26 12:12 | P.PN ---
Progress Note - Text Interval History: Patient is a 61-year-old female who was seen this morning, she was reporting that she still is not sleeping well at night and is unable to report why she is having difficulty sleeping. Patient states that she is no longer having any suicidal plan to act on the anniversary of her son's . She states she is not having any current suicidal ideation. Patient reports that she continues to have episodes of sadness when she thinks of her son's and discussed today his being an organ donor and being sad about his organs being donated to other people. Patient also discussed her concerns about returning home with her son and who are arguing and asking her to resolve their differences. Patient reported no side effects from the medication and states that she is not feeling as depressed as she was on admission and is no longer hearing any voices. Mental Status: Appearance/Attitude: Patient is neatly and appropriately dressed , she was not using her walker this morning reporting that her ankle felt much better and her eye contact was good and she was cooperative. Behavior: Patient did not exhibit any psychomotor agitation or retardation. Speech/Language: Patient's speech was spontaneous, of normal volume and rhythm and she was coherent. Thought Process: Patient was goal-directed and there is no evidence of any circumstantial or tangential thought and no loose associations or flight of ideas. Thought Content: Patient denied any auditory or visual hallucinations and no delusions or paranoid ideation were elicited. The patient reported her frustration is her and son trying to get her in the middle of their arguments with each other. She also reported feeling sad about her son's organ donation. She reported that she is not sleeping well at night and cannot identify what is keeping her awake. Patient reports that she is eating well. Suicidal/Homicidal Ideation: Patient denies any current suicidal or homicidal ideation and denies that she has a plan to act on the anniversary of her son's in December. Sensorium/Cognition: Patient is alert and oriented to person, place, and time and her memory is grossly intact. Mood/Affect: Patient's mood is sad, she reports feeling less depressed and her affect is appropriate. Insight/Judgement: Patient's insight and judgment are fair. Assessment: Patient reports that she is feeling much less depressed than she was on admission, no longer having suicidal thoughts or plan to act on the anniversary of her son's . She continues to report poor sleep, to be noted the patient has sleep apnea and is not using a CPAP machine. Patient also reports that her ankle is feeling better and she was not using her walker this morning. Patient states that she had a family meeting with her and son and was able to voice some of her concerns with them. She continues to feel concerned about their fighting with each other and requesting her to intervene and referee them. Patient has been attending groups and activities on and off and has been participating to some degree. Plan: Patient will continue on lithium 450 mg twice a day and a lithium level will be obtained tomorrow. Patient will continue on Cymbalta 60 mg in the morning 30 mg in the afternoon to target her depression. She will also continue on Zyprexa 5 mg at bedtime to target her psychotic symptoms. We will increase her trazodone to 300 mg at bedtime to see if this improves her sleep and she was advised about feeling dizzy and lightheaded. Patient will also continue on the Ativan 1 mg in the morning and 0.5 mg at bedtime. Patient and I discussed a tentative discharge on Wednesday should her lithium level be within the therapeutic range and her sleep improved. Patient reports that her ankle is much less painful and she is able to walk better.
[2016-10-26] MEDS: DULoxetine HCL 30 MG CAPSULE.DR PO SCH (17:01)
[2016-10-26] MEDS: traZODone HCL 100 MG TAB PO SCH (20:46)
[2016-10-26] MEDS: OLANZapine 5 MG TAB PO SCH (20:46)
[2016-10-27] MEDS: LEVOTHYROXINE 112 MCG TAB PO SCH (04:47)
[2016-10-27] MEDS: ACETAMINOPHEN TAB 325 MG TAB PO PRN ×3 (04:49→16:56)
[2016-10-27] MEDS: HYDROcodone/APAP 5-325MG 1 EACH TAB PO PRN ×3 (07:35→20:57)
[2016-10-27] MEDS: PANTOPRAZOLE 40 MG TABLET PO SCH ×2 (07:35→16:55)
[2016-10-27] MEDS: LITHIUM CARBONATE 150 MG CAP PO SCH ×2 (09:01→20:57)
[2016-10-27] MEDS: DULoxetine HCL 60 MG CAPSULE.DR PO SCH (09:02)
[2016-10-27] MEDS: LORazepam 1 MG TAB PO SCH ×2 (09:02→16:55)
[2016-10-27] MEDS: MAGNESIUM HYDROXIDE 2,400 MG/10 ML CUP PO PRN (09:03)
--- NOTE | 2016-10-27 10:40 | P.PN ---
Progress Note - Text Interval History: Patient is a 61-year-old female who was seen today, patient is walking without her walker and reports that she feels rested this morning. Patient states that her sleep was still disruptive but she did feel more rested this morning. Patient states that she has not had any current suicidal ideation and states she has no plan to act on the anniversary of her son's . She describes still feeling sad about the loss of her son but denies feeling depressed. She states she has motivation and interest to do things and is not feeling hopeless or helpless. Patient states that she plans on returning home to live with her , she states her son who was at home is now living with a friend. Patient continues to verbalize the sadness about the loss of her son, is able to focus on positive aspects of his life and discussed her initial feelings of being the only parent to had lost a son to this reason. Patient has been using support groups online and did feel some benefit from finding out she is not the only parent. Patient reports no side effects from the medication, stated she is no longer hearing voices. Mental Status: Appearance/Attitude: Patient is neatly and appropriately dressed this morning, making good eye contact and cooperative. Behavior: Patient does not display any psychomotor agitation or retardation. Speech/Language: Patient's speech is spontaneous and of normal volume and rhythm and she is coherent. Thought Process: Patient is goal-directed and there is no evidence of circumstantial or tangential thought and no loose associations or flight of ideas. Thought Content: Patient denies any auditory or visual hallucinations, denies any delusions or paranoid ideation. Patient discusses the sadness over the loss of her son, states she is not feeling hopeless or helpless. She states she is focusing on the positive aspects of her son's life and finds comfort in this. Patient reports that she still had disruptive sleep last evening but did feel more rested this morning and her appetite remains good. Suicidal/Homicidal Ideation: Patient denies any current suicidal or homicidal ideation and has no plans to act on the anniversary of her son's . Sensorium/Cognition: Patient is alert and oriented to person, place, and time and her memory is grossly intact. Mood/Affect: Patient's mood is pleasant, she denies feeling depressed but is sad about the loss of her son and her affect is appropriate. Insight/Judgement: Patient's insight and judgment are fair. Assessment: Patient has continued to show improvement in her mood, no longer having auditory hallucinations, she is reporting not feeling depressed and hopeless or despondent but sad about the loss of her son. Patient denies any plan to commit suicide on the anniversary of her son's and has no current suicidal ideation. Patient has been social on the unit and is no longer using a walker, reporting that her ankle is no longer bothering her. Patient has been attending groups and activities, she continues to lie down during the day due to the pain in her back. Patient has plans to return home to live with her . Patient's lithium level was 0.9 on 900 mg per day Plan: Patient will continue on her current dose of lithium at 450 mg twice a day to stabilize her mood with a therapeutic level of 0.9 and no complaints of side effects. Patient will also continue on a total of 90 mg of Cymbalta per day to target her depression, Zyprexa 5 mg at bedtime to target her psychotic symptoms and trazodone 300 mg at bedtime to target her sleep. Patient also continues on Ativan 1 mg in the morning and 0.5 mg at bedtime to target her anxiety. Patient and I discussed her discharge tomorrow with the plan to return home to live with her . Patient was agreeable with this plan. Patient and I also discussed the need for her to follow-up regarding her sleep apnea and the use of a CPAP machine to improve her sleep. Patient and I also reviewed that her Ativan should continue to be decreased on follow-up after discharge.
[2016-10-27] MEDS: DULoxetine HCL 30 MG CAPSULE.DR PO SCH (16:55)
[2016-10-27] MEDS: traZODone HCL 100 MG TAB PO SCH (20:57)
[2016-10-27] MEDS: OLANZapine 5 MG TAB PO SCH (20:57)
[2016-10-28 00:15] VITALS: BP 99/51; PULSE 51; RESP 12; TEMP 98.1
[2016-10-28] MEDS: ACETAMINOPHEN TAB 325 MG TAB PO PRN ×2 (01:57→09:00)
[2016-10-28] MEDS: HYDROcodone/APAP 5-325MG 1 EACH TAB PO PRN ×2 (04:59→13:02)
[2016-10-28] MEDS: LEVOTHYROXINE 112 MCG TAB PO SCH (04:59)
[2016-10-28] MEDS: PANTOPRAZOLE 40 MG TABLET PO SCH (04:59)
[2016-10-28] MEDS: LORazepam 1 MG TAB PO SCH (09:00)
[2016-10-28] MEDS: DULoxetine HCL 60 MG CAPSULE.DR PO SCH (09:00)
[2016-10-28] MEDS: LITHIUM CARBONATE 150 MG CAP PO SCH (09:00)
--- NOTE | 2016-10-28 12:15 | P.DS ---
Providers Date of admission: 10/14/16 18:39 Expected date of discharge: 10/28/16 Attending physician: Veda Diana MD Consults: 10/14/16 18:43 Consult Physician Routine Consulting Provider: [facility] Consult Reason/Comments: follow up H & P Do you want consulting provider notified?: Yes Primary care physician: Stated None Hospital Course: Discharge Diagnoses: Bipolar 1 disorder, current episode depressed with psychotic features, cocaine use disorder, mild. Hypothyroidism Reason for Admission:[ Patient is a 61-year-old female who is at her PCPs office and reported thinking of committing suicide on the anniversary of her son 's by walking in the [place] and drowning. Patient was brought to the emergency room for evaluation. Patient reports that her son a year ago in December of an overdose on fentanyl and Xanax. She was reporting feeling that there was no reason for her to live, feeling hopeless and worthless and not sleeping well at night. She was hearing voices at night but could not determine what they were saying. She reported that she was unable to go on without her son and sees her plan to commit suicide as reasonable. She has not been eating well and has lost about 10 pounds over the last several months. She had stopped her psychiatric medications of Seroquel and trazodone for the last month. Patient had not been seen by an outpatient psychiatrist for some time. Patient also reports that she uses cocaine on and off and had last used a month ago. Patient states she was hospitalized in [place] in 2016 and at that time was begun on lithium, Cymbalta and eventually was able to report that these didn't work well for her. Patient has had prior admission for an overdose in her 30s and was followed up at [facility] and eventually released from care. Patient has had 3 prior hospitalizations here as well as her most recent one in 2016 in [place]. Hospital Course: Patient was admitted on a voluntary basis and routine laboratory studies were ordered as well as a medical consultation. Patient was continued on her Kilgore for pain. Patient was ordered group and activity therapy and was placed on suicide precautions. Patient was restarted on lithium and Cymbalta she felt these worked well for her in the past. Patient was also begun on Zyprexa at bedtime to treat her psychotic symptoms and she was continued on trazodone for her sleep. After the patient's laboratory studies were received she was started on Synthroid and further studies showed no adrenal insufficiency. Patient was tolerating her medications well and attending groups and activity therapy and participating. Patient slowly responded to the medications and reported that she was no longer having suicidal ideation and began to discuss the anger over her son's , her difficulties at home with her and her guilt about not preventing her son 's drug use. Patient's medications were adjusted to Cymbalta 60 mg in the morning and 30 mg in the afternoon and she was no longer reporting feeling hopeless or worthless, no further suicidal ideation or plan to commit suicide on the anniversary of her son's . Zyprexa was increased to a total of 5 mg at bedtime and she was no longer reporting auditory hallucinations. Her trazodone was initially decreased to 200 mg at night but then was increased to 300 mg at night to target her insomnia, the patient has been diagnosed with sleep apnea in the past and has never used a CPAP machine. Patient was restarted on lithium and it was titrated to a dose of 450 mg twice a day which resulted in a serum level of 0.9. Patient's Ativan which she had been on as an outpatient was decreased to 1 mg in the morning and 0.5 mg at night and she and I discussed that this should continue to be decreased as an outpatient and eventually discontinued. Patient complained of an upset stomach and was started on Protonix with good results. Patient was continued on Kilgore to treat her chronic back pain and this was effective. Patient continued to improve and discuss her son's life and more positive aspects. Had plans to have a Memorial on the anniversary of his to honor his life, was no longer thinking of suicide on the anniversary of his and was able to verbalize that this was not a good idea. Patient was still having some disrupted sleep although it was more restful, she was eating well and ambulating without a walker. Patient had fallen prior to her admission and reported some pain in her ankle which resolved while she was here. Patient was no longer having crying spells, reported that she was not feeling depressed and was more hopeful about the future. Discharge Mental Status:Appearance/Attitude: Patient was neatly and appropriately dressed and wearing makeup, she made good eye contact and was cooperative. Behavior: Patient exhibited no psychomotor agitation or retardation. Speech/Language: Patient's speech was spontaneous and of normal volume and rhythm and she was coherent. Thought Process: Patient was goal-directed and there is no evidence of circumstantial or tangential thought and no loose associations or flight of ideas. Thought Content: Patient denied any current auditory or visual hallucinations, no delusions or paranoid ideation were elicited. Patient verbalized not feeling hopeless and was positive about the future and looking forward to having an Memorial on the anniversary of her son's to commemorate his life. Patient was eating well and states that her sleep was more restful although still disrupted. Patient was no longer using a walker and reported no further ankle pain. Patient was hopeful about the future, discussed coping strategies to deal with verbal abuse from her , and strategies to deal with the loss of her son. Suicidal/Homicidal Ideation: Patient denied any current suicidal or homicidal ideation and stated that she no longer had a plan to commit suicide on the anniversary of her son's Sensorium/Cognition: Patient was alert and oriented to person, place, and time and her memory is grossly intact. Mood/Affect: Patient's mood was euthymic and her affect was appropriate. Insight/Judgement: Patient's insight and judgment are fair Laboratory Last Values WBC 5.1 k/uL (3.8-10.6) 10/15/16 11:16 RBC 4.12 m/uL (3.80-5.40) 10/15/16 11:16 Hgb 12.3 gm/dL (11.4-16.0) 10/15/16 11:16 Hct 37.8 % (34.0-46.0) 10/15/16 11:16 MCV 91.9 fL (80.0-100.0) 10/15/16 11:16 MCH 29.9 pg (25.0-35.0) 10/15/16 11:16 MCHC 32.5 g/dL (31.0-37.0) 10/15/16 11:16 RDW 16.3 % (11.5-15.5) H 10/15/16 11:16 Plt Count 278 k/uL (150-450) 10/15/16 11:16 Neutrophils % 49 % 10/15/16 11:16 Lymphocytes % 41 % 10/15/16 11:16 Monocytes % 6 % 10/15/16 11:16 Eosinophils % 2 % 10/15/16 11:16 Basophils % 0 % 10/15/16 11:16 Neutrophils # 2.5 k/uL (1.3-7.7) 10/15/16 11:16 Lymphocytes # 2.1 k/uL (1.0-4.8) 10/15/16 11:16 Monocytes # 0.3 k/uL (0-1.0) 10/15/16 11:16 Eosinophils # 0.1 k/uL (0-0.7) 10/15/16 11:16 Basophils # 0.0 k/uL (0-0.2) 10/15/16 11:16 Hypochromasia Slight 10/15/16 11:16 Anisocytosis Slight 10/15/16 11:16 Sodium 145 mmol/L (137-145) 10/15/16 11:16 Potassium 4.3 mmol/L (3.5-5.1) 10/15/16 11:16 Chloride 115 mmol/L (98-107) H 10/15/16 11:16 Carbon Dioxide 18 mmol/L (22-30) L 10/15/16 11:16 Anion Gap 12 mmol/L 10/15/16 11:16 BUN 27 mg/dL (7-17) H 10/15/16 11:16 Creatinine 0.70 mg/dL (0.52-1.04) 10/15/16 11:16 Est GFR (MDRD) Af Amer >60 (>60 ml/min/1.73 sqM) 10/15/16 11:16 Est GFR (MDRD) Non-Af >60 (>60 ml/min/1.73 sqM) 10/15/16 11:16 Glucose 82 mg/dL (74-99) 10/15/16 11:16 Calcium 9.4 mg/dL (8.4-10.2) 10/15/16 11:16 Total Bilirubin 0.3 mg/dL (0.2-1.3) 10/15/16 11:16 AST 16 U/L (14-36) 10/15/16 11:16 ALT 26 U/L (9-52) 10/15/16 11:16 Alkaline Phosphatase 75 U/L (38-126) 10/15/16 11:16 Total Protein 6.6 g/dL (6.3-8.2) 10/15/16 11:16 Albumin 3.9 g/dL (3.5-5.0) 10/15/16 11:16 TSH 0.368 mIU/L (0.465-4.680) L 10/15/16 11:16 Free T4 0.74 ng/dL (0.78-2.19) L 10/15/16 11:15 FSH 59.1 mIU/mL 10/15/16 11:15 Prolactin 7.4 ng/mL (3.0-18.6) 10/15/16 11:15 Cortisol 28 ug/dL 10/17/16 09:03 ACTH 21.70 pg/mL (0.00-45.99) 10/17/16 05:25 Urine Color Yellow 10/14/16 16:07 Urine Appearance Clear (Clear) 10/14/16 16:07 Urine pH 6.5 (5.0-8.0) 10/14/16 16:07 Ur Specific [place] 1.022 (1.001-1.035) 10/14/16 16:07 Urine Protein Negative (Negative) 10/14/16 16:07 Urine Glucose (UA) Negative (Negative) 10/14/16 16:07 Urine Ketones Negative (Negative) 10/14/16 16:07 Urine Blood Negative (Negative) 10/14/16 16:07 Urine Nitrite Negative (Negative) 10/14/16 16:07 Urine Bilirubin Negative (Negative) 10/14/16 16:07 Urine Urobilinogen <2.0 mg/dL (<2.0) 10/14/16 16:07 Ur Leukocyte Esterase Negative (Negative) 10/14/16 16:07 Urine Opiates Screen Not Detected (NotDetected) 10/14/16 16:07 Ur Oxycodone Screen Not Detected (NotDetected) 10/14/16 16:07 Urine Methadone Screen Not Detected (NotDetected) 10/14/16 16:07 Ur Propoxyphene Screen Not Detected (NotDetected) 10/14/16 16:07 Ur Barbiturates Screen Not Detected (NotDetected) 10/14/16 16:07 U Tricyclic Antidepress Not Detected (NotDetected) 10/14/16 16:07 Ur Phencyclidine Scrn Not Detected (NotDetected) 10/14/16 16:07 Ur Amphetamines Screen Not Detected (NotDetected) 10/14/16 16:07 U Methamphetamines Scrn Not Detected (NotDetected) 10/14/16 16:07 U Benzodiazepines Scrn Detected (NotDetected) H 10/14/16 16:07 [place] 0.9 mmol/L 10/27/16 07:59 Urine Cocaine Screen Not Detected (NotDetected) 10/14/16 16:07 U Marijuana (THC) Screen Not Detected (NotDetected) 10/14/16 16:07 Thyroid Peroxidase Ab 29.1 U/mL (0.0-39.9) 10/15/16 11:15 Risk Assessment: Patient's risk for self-harm behavior is moderate should she not continue her medication, not follow up with outpatient counseling or return to using cocaine. Discharge Plan: Patient will be discharged to return home to live with her , she will follow-up at [facility] for outpatient counseling and medication management and was also referred to a grief support group. Patient will continue on Cymbalta 60 mg in the morning and 30 mg in the afternoon, Ativan 1 mg in the morning and 0.5 mg at bedtime, trazodone 300 mg at bedtime, lithium 450 mg twice a day and she will also be given scripts for Kilg[place], Synthroid and Protonix. Patient will return to see her primary care physician at [facility] within the next 2 weeks and will be given a referral for an reel system operator to follow up with her thyroid studies. Patient Condition at Discharge: Stable Plan - Discharge Summary New Discharge Prescriptions: New DULoxetine HCL [Cymbalta] 30 mg PO DAILY@1700 #14 cap DULoxetine HCL [Cymbalta] 60 mg PO DAILY #14 cap HYDROcodone/APAP 5-325MG [Kilgore 5-325] 1 each PO TID PRN #40 tab PRN Reason: MODERATE PAIN LORazepam [Ativan] 1 mg PO BID #21 tab OLANZapine [ZyPREXA] 5 mg PO HS #14 tab Pantoprazole [Protonix] 40 mg PO AC-BID 14 Days traZODone HCL 300 mg PO HS #14 tab [place] Carbonate [[place] Carbonate ER] 450 mg PO BID #28 tablet.er Continue Levothyroxine Sodium [Synthroid] 1 tab PO DAILY #14 Discontinued traZODone HCL 300 mg PO HS LORazepam [Ativan] 1 mg PO BID Acetaminophen-Codeine 300-30mg [Tylenol #3] 1 tab PO BID Aspirin 325 - 650 mg PO QID PRN PRN Reason: Headache Discharge Medication List DULoxetine HCL [Cymbalta] 30 mg PO DAILY@1700 #14 cap 10/28/16 [Rx] DULoxetine HCL [Cymbalta] 60 mg PO DAILY #14 cap 10/28/16 [Rx] HYDROcodone/APAP 5-325MG [K[place]gore 5-325] 1 each PO TID PRN #40 tab 10/28/16 [Rx] LORazepam [Ativan] 1 mg PO BID #21 tab 10/28/16 [Rx] Levothyroxine Sodium [Synthroid] 1 tab PO DAILY #14 10/28/16 [Rx] [place] Carbonate [[place] Carbonate ER] 450 mg PO BID #28 tablet.er 10/28/16 [ Rx] OLANZapine [ZyPREXA] 5 mg PO HS #14 tab 10/28/16 [Rx] Pantoprazole [Protonix] 40 mg PO AC-BID 14 Days 10/28/16 [Rx] traZODone HCL 300 mg PO HS #14 tab 10/28/16 [Rx] Follow up Appointment(s)/Referral(s): Rusty Rodgers [place] [Outside] - 10/29/16 3:00 pm (Linnea Raf Please arrive by 14:30 for paperwork ) None,Stated [Primary Care Provider] - 1-2 days Georgina Ram MD [STAFF PHYSICIAN] - 1 Week Activity/Diet/Wound Care/Special Instructions: Per Dr. Haskins, recommends follow up with endocrinology as outpatient to follow up on thyroid function testing for central hypothyroidism with possibly requiring an MRI of brain. Discharge Disposition: HOME SELF-CARE
[2016-10-28] MEDS: MAGNESIUM HYDROXIDE 2,400 MG/10 ML CUP PO PRN (12:16)
== END 2016-10-28 14:26 | disposition home or self-care (01) | DRG 885 ==
LOC: EC 14:28 → 3MHU 18:39
PROVIDERS: ADMIT Psychiatry & Neurology Psychiatry; ATTEND Psychiatry & Neurology Psychiatry
DX: F31.5 Bipolar disorder, current episode depressed, severe, with psychotic features (principal); R45.851 Suicidal ideations; Z91.14 Patient's other noncompliance with medication regimen; I10 Essential (primary) hypertension; F14.10 Cocaine abuse, uncomplicated; E03.8 Other specified hypothyroidism; F17.200 Nicotine dependence, unspecified, uncomplicated; F41.0 Panic disorder [episodic paroxysmal anxiety]; F43.10 Post-traumatic stress disorder, unspecified; F60.3 Borderline personality disorder; G47.00 Insomnia, unspecified; G47.30 Sleep apnea, unspecified; G89.29 Other chronic pain; K58.1 Irritable bowel syndrome with constipation; M19.071 Primary osteoarthritis, right ankle and foot; M79.7 Fibromyalgia; S93.401A Sprain of unspecified ligament of right ankle, initial encounter; M54.9 Dorsalgia, unspecified; R51 Headache; Z79.899 Other long term (current) drug therapy; Z79.82 Long term (current) use of aspirin; Z91.040 Latex allergy status; Z62.810 Personal history of physical and sexual abuse in childhood; Z98.1 Arthrodesis status
CPT/HCPCS: 80053; 80178; 80306; 81003; 82024; 82075; 82533; 83001; 84146; 84439; 84443; 85025; 86376; 99285

== ENCOUNTER → 2016-12-10 | Outpatient (CLI) | payer MEDICARE ==
--- NOTE | 2016-12-10 23:25 | MR ---
EXAMINATION TYPE: MR lumbar spine wo/w con DATE OF EXAM: 12/10/2016 COMPARISON: 03/16/2013 HISTORY: Intervertebral disc dis w/ radiculopathy, Pain TECHNIQUE: Multiplanar, multisequence images of the lumbar spine were acquired utilizing [address] gadolinium contrast. There is metal artifact from posterior fusion surgery at L5-S1. Detail at this level is slightly limi royce. The vertebra have normal alignment. There is mild narrowing of disc spaces from L3 to S1. There is di sc prosthesis at L3-4 L4-5 and L5-S1. There is a 5 x 2.5 cm fluid collection posterior to L5-S1 level consistent with a seroma. There is no compression fracture. I see no focal bone destruction. There i s no paraspinal mass. Sacroiliac joints appear intact. I see no spinal stenosis. I see no pathologic enhancement. IMPRESSION: Postsurgical changes. No spinal stenosis. No compression fracture. Stable posterior epidural seroma a t the L4 L5 S1 level. Lumbar spine overall is a not changed compared to old exam.
== END | disposition home or self-care (01) ==
LOC: RADMRIMAIN 18:07
PROVIDERS: ATTEND Physician Assistant
DX: S34.104A Unspecified injury to L4 level of lumbar spinal cord, initial encounter (principal); Z98.890 Other specified postprocedural states
CPT/HCPCS: 72158; A9581

== ENCOUNTER 2017-11-25 12:56 | Emergency (ER) | payer MEDICARE, OTHER ==
[2017-11-25 13:41] VITALS: RESP 18
[2017-11-25] MEDS ORDERED: SODIUM CHLORIDE 0.9% 1,000 ML IV ONE (13:48)
[2017-11-25] MEDS ORDERED: NALOXONE 0.4 MG/ML 1 ML VIAL IV STA (13:56)
[2017-11-25 14:02] LABS: Anisocytosis Slight; Basophils % (A) 0 %; Eosinophils # (A) 0.3 k/uL (0-0.7); Eosinophils % (A) 3 %; HGB 12.8 gm/dL (11.4-16.0); Hypochromasia Slight; Lymphocytes # (A) 2.6 k/uL (1.0-4.8); Lymphocytes % (A) 29 %; MCH 29.2 pg (25.0-35.0); MCV 91.4 fL (80.0-100.0); Mean Platelet Volume 8.6; Monocytes # (A) 0.4 k/uL (0-1.0); Monocytes % (A) 5 %; Neutrophils # (A) 5.3 k/uL (1.3-7.7); Neutrophils % (A) 61 %; Platelet Count 210 k/uL (150-450); RBC 4.37 m/uL (3.80-5.40); RDW 16.3 % (11.5-15.5); WBC 8.7 k/uL (3.8-10.6)
[2017-11-25 14:13] LABS: Albumin 3.7 g/dL (3.5-5.0); Calcium 9.2 mg/dL (8.4-10.2); Potassium 4.3 mmol/L (3.5-5.1); Total Bilirubin 0.4 mg/dL (0.2-1.3); Total Protein 6.7 g/dL (6.3-8.2)
--- NOTE | 2017-11-25 14:13 | ED ---
Altered Mental Status HPI - General Chief Complaint: Altered Mental Status Stated Complaint: Altered mental status Time Seen by Provider: 11/25/17 13:19 Source: patient, family, EMS, RN notes reviewed Mode of arrival: EMS Limitations: altered mental status - History of Present Illness Initial Comments: This a 62-year-old female presents to emergency from via EMS chief complaint altered mental status. called EMS stating that she is just not acting her usual self. believes that she took too much morphine as she takes it for chronic back pain. There is no report of any trauma. Patient is drowsy and information is limited from patient at this time. Patient does have a history of back surgery, chronic pain, psychiatric disorders. - Related Data Home Medications Medication Instructions Recorded Confirmed DULoxetine HCL [Cymbalta] 60 mg PO BID 11/25/17 11/25/17 Ergocalciferol (Vitamin D2) 50,000 unit PO Q7D 11/25/17 11/25/17 [Vitamin D2] LORazepam [Ativan] 0.5 mg PO BID 11/25/17 11/25/17 Levothyroxine Sodium [Tirosint] 75 mcg PO DAILY 11/25/17 11/25/17 [place] Carbonate ER [Lithobid] 450 mg PO BID 11/25/17 11/25/17 Morphine Sulfate Ir [MSIR] 30 mg PO QID 11/25/17 11/25/17 QUEtiapine [SEROquel] 800 mg PO HS 11/25/17 11/25/17 traZODone HCL 300 mg PO HS 11/25/17 11/25/17 Allergies Allergy/AdvReac Type Severity Reaction Status Date / Time latex Allergy Unknown Rash/Hives Verified 10/18/16 16:20 Review of Systems ROS Statement: Those systems with pertinent positive or pertinent negative responses have been documented in the HPI. ROS Other: All systems not noted in ROS Statement are negative. Past Medical History Past Medical History: Fibromyalgia, Hypertension, Sleep Apnea/CPAP/BIPAP Additional Past Medical History / Comment(s): bipolar; borderline personality; antisocial; eating disorder, PTSD History of Any Multi-Drug Resistant Organisms: None Reported, MRSA Date of last positivie culture/infection: 2004 MDRO Source:: unknown Past Surgical History: Back Surgery Additional Past Surgical History / Comment(s): neck surgery Past Anesthesia/Blood Transfusion Reactions: Unable to Obtain Past Psychological History: Anxiety, Bipolar, Depression, PTSD Smoking Status: Current every day smoker General Exam Limitations: altered mental status General appearance: in no apparent distress, lethargic Head exam: Present: atraumatic, normocephalic, normal inspection Eye exam: Present: normal appearance, PERRL, EOMI. Absent: scleral icterus, conjunctival injection, periorbital swelling ENT exam: Present: normal exam, normal oropharynx, mucous membranes moist Neck exam: Present: normal inspection. Absent: tenderness, meningismus, lymphadenopathy Respiratory exam: Present: normal lung sounds bilaterally, other. Absent: respiratory distress, wheezes, rales, rhonchi, stridor Cardiovascular Exam: Present: regular rate, normal rhythm, normal heart sounds. Absent: systolic murmur, diastolic murmur, rubs, gallop, clicks GI/Abdominal exam: Present: soft, normal bowel sounds. Absent: distended, tenderness, guarding, rebound, rigid Neurological exam: Present: CN II-XII intact. Absent: alert, oriented X3 Psychiatric exam: Present: normal affect, normal mood Skin exam: Present: warm, dry, intact, normal color. Absent: rash Course Vital Signs 11/25/17 11/25/17 13:35 13:56 Temperature 98.0 F Pulse Rate 73 Respiratory 18 18 Rate Blood Pressure 96/62 O2 Sat by Pulse 98 Oximetry - Reevaluation(s) Reevaluation #1: 11/25/17 14:12 Patient was initially very drowsy, been nonverbal when asked questions. Patient had several lacerations. Patient was given 1 of Narcan and she did arouse and is now talking and did state that she may have taken too much morphine. Patient states that she is chronic back pain denies any current headache, blurred vision no focal weakness. Denies any chest pain or shortness breath. Medical Decision Making - Medical Decision Making 8-year-old female presented to emergency department for altered mental status. Patient lab work which is unremarkable. Patient was given Narcan all her symptoms have resolved. Patient did admit to taking more morphine and she normally is supposed to. - Lab Data Result diagrams: 11/25/17 13:30 11/25/17 13:30 Lab Results 11/25/17 11/25/17 11/25/17 Range/Units 13:30 13:30 13:30 WBC 8.7 (3.8-10.6) k/uL RBC 4.37 (3.80-5.40) m/uL Hgb 12.8 (11.4-16.0) gm/dL Hct 40.0 (34.0-46.0) % MCV 91.4 (80.0-100.0) fL MCH 29.2 (25.0-35.0) pg MCHC 32.0 (31.0-37.0) g/dL RDW 16.3 H (11.5-15.5) % Plt Count 210 (150-450) k/uL Neutrophils % 61 % Lymphocytes % 29 % Monocytes % 5 % Eosinophils % 3 % Basophils % 0 % Neutrophils # 5.3 (1.3-7.7) k/uL Lymphocytes # 2.6 (1.0-4.8) k/uL Monocytes # 0.4 (0-1.0) k/uL Eosinophils # 0.3 (0-0.7) k/uL Basophils # 0.0 (0-0.2) k/uL Hypochromasia Slight Anisocytosis Slight Sodium 143 (137-145) mmol/L Potassium 4.3 (3.5-5.1) mmol/L Chloride 114 H (98-107) mmol/L Carbon Dioxide 21 L (22-30) mmol/L Anion Gap 8 mmol/L BUN 14 (7-17) mg/dL Creatinine 0.85 (0.52-1.04) mg/dL Est GFR (CKD-EPI)AfAm 86 (>60 ml/min/1.73 sqM) Est GFR (CKD-EPI)NonAf 75 (>60 ml/min/1.73 sqM) Glucose 81 (74-99) mg/dL Calcium 9.2 (8.4-10.2) mg/dL Total Bilirubin 0.4 (0.2-1.3) mg/dL AST 30 (14-36) U/L ALT 23 (9-52) U/L Alkaline Phosphatase 82 (38-126) U/L Troponin I <0.012 (0.000-0.034) ng/mL Total Protein 6.7 (6.3-8.2) g/dL Albumin 3.7 (3.5-5.0) g/dL Disposition Clinical Impression: Opiate overdose Disposition: HOME SELF-CARE Condition: Stable Instructions: Safe Use of Opioids (ED) Additional Instructions: Please return to the Emergency Department if symptoms worsen or any other concerns. Is patient prescribed a controlled substance at d/c from ED?: No Referrals: None,Stated [REFERRING] - 1-2 days Time of Disposition: 15:29
[2017-11-25 15:37] VITALS: BP 107/58; PULSE 58; TEMP 98
== END 2017-11-25 15:36 | disposition home or self-care (01) ==
LOC: EC 12:56
DX: T40.601A Poisoning by unspecified narcotics, accidental (unintentional), initial encounter (principal); R41.82 Altered mental status, unspecified; M54.9 Dorsalgia, unspecified; G89.29 Other chronic pain; M79.7 Fibromyalgia; I10 Essential (primary) hypertension; G47.30 Sleep apnea, unspecified; Z99.89 Dependence on other enabling machines and devices; F32.9 Major depressive disorder, single episode, unspecified; F41.9 Anxiety disorder, unspecified; F60.3 Borderline personality disorder; F43.10 Post-traumatic stress disorder, unspecified; F17.200 Nicotine dependence, unspecified, uncomplicated; Z86.14 Personal history of Methicillin resistant Staphylococcus aureus infection; Z79.891 Long term (current) use of opiate analgesic; Z79.899 Other long term (current) drug therapy; Z91.040 Latex allergy status
CPT/HCPCS: 36415; 80053; 84484; 85025; 99285; 96374; 96361 ×2; J2310

== ENCOUNTER 2019-08-11 07:37 | Inpatient (IN) | payer MEDICARE ==
--- NOTE | 2019-08-11 08:01 | ED ---
General Adult HPI - General Chief complaint: Altered Mental Status Stated complaint: fall,hit head Time Seen by Provider: 08/11/19 07:40 Source: family Mode of arrival: wheelchair Limitations: altered mental status - History of Present Illness Initial comments: Dictation was produced using [employer] dictation software. please excuse any grammatical, word or spelling errors. This patient was cared for during a federal and state declared state of ergency secondary to Covid 19 Chief Complaint: 64-year-old female with past medical history of psychiatric disease and monthly altered mental status episodes presents after fall. History of Present Illness: She 64-year-old female she is unable to provide history at this time. She presents today with her son. Son reports that patient suffered a fall today. He was in the living room when he heard a loud thud. He went to go check on his mother and noticed that she was on the ground. He did see some blood. He noted that patient struck her head on a hard surface. Son describes that patient has a history of "chemical imbalance." He goes on to describe that approximately once a month patient has his episodes where she becomes altered mentally. Her symptoms this time began yesterday. He describes these episodes as her being altered to the point where she has difficulty speaking and has abnormal gait. She's had this for several months now. She has been evaluated by psychiatry and her primary care doctor. They were told that her symptoms were secondary to an unspecified chemical imbalance. Son was also told that perhaps is related to her bipolar disease. She has been admitted to inpatient psychiatry in the past for her symptoms. Son reports that patient has been having these episodes more frequently. The ROS documented in this emergency department record has been reviewed and confirmed by me. Those systems with pertinent positive or negative responses have been documented in the HPI. All other systems are other negative and/or noncontributory. PHYSICAL EXAM: General Impression: Alert and oriented x2/4 HEENT: 2 cm laceration to the right of the occiput, extra-ocular movements intact, pupils equal and reactive to light bilaterally, mucous membranes moist. Cardiovascular: Heart regular rate and rhythm Chest: Able to complete full sentences, no retractions, no tachypnea Abdomen: abdomen soft, non-tender, non-distended, no organomegaly Musculoskeletal: Pulses present and equal in all extremities, no peripheral edema Motor: no focal deficits noted Neurological: CN II-XII grossly intact, moving all extremities grossly to painful stimuli and spontaneously, withdraws all extremities to painful stimuli Skin: Intact with no visualized rashes ED course: 64-year-old feel presents with altered mental status, fall. Vital signs upon arrival are within acceptable limits. Patient's clinical presentation could be considered aphasia, however son at bedside endorses that patient has regular episodes like she is having today. There is no clear time of onset however son does report that it started yesterday and he said symptoms have been approximately 24 hours.. Considering that patient has chronic frequent episodes like today, we will not activate a code stroke at this time however patient will have CVA workup in the emergency department. Laboratory evaluation obtained. CBC unremarkable. Coag panel shows INR 1.7. Patient's medications were reviewed. She does take lithium and multiple other psychiatric medications. Metabolic panel was obtained showing bicarb of 15 with a gap of 12. Rest metabolic panel is unremarkable. Salicylate level is critically elevated at 61.2. CT angios the head is somewhat limited secondary to patient being combative on the table. Chest x-ray shows possible congestive heart failure with cardiomegaly and central vascular congestion. Considering degree of patient's salicylate toxicity. Dr. Manuel of Nephrology was contacted immediately to arrange dialysis. She requests that patient be started bicarbonate. She also requests contacting vascular surgically for hemodialysis catheter placement. Discussed patient case with the counter waitress/waiter Dr. London does want except patient's care. Stern catheter placed. Pending CT brain study. Discussed patient further with son. He reports that she is not suicidal however does take aspirin chronically for headaches. There is still some concern for [place] icidal attempt. Psychiatry consulted. Patient put on suicide precautions. Patient be disposition to the intensive care unit. EKG interpretation: Ventricular rate 85, normal sinus rhythm, KY interval 150, QRS 92, QTc 454. No [place] prolongation, no QTC prolongation, no ST or T-wave changes noted. EKG compared to 01/25/2014 showing no changes. Overall, this EKG is unremarkable - Related Data Home Medications Medication Instructions Recorded Confirmed DULoxetine HCL [Cymbalta] 60 mg PO BID 11/25/17 11/25/17 Ergocalciferol (Vitamin D2) 50,000 unit PO Q7D 11/25/17 11/25/17 [Vitamin D2] LORazepam [Ativan] 0.5 mg PO BID 11/25/17 11/25/17 Levothyroxine Sodium [Tirosint] 75 mcg PO DAILY 11/25/17 11/25/17 [place] Carbonate ER [Lithobid] 450 mg PO BID 11/25/17 11/25/17 Morphine Sulfate Ir [MSIR] 30 mg PO QID 11/25/17 11/25/17 QUEtiapine [SEROquel] 800 mg PO HS 11/25/17 11/25/17 traZODone HCL 300 mg PO HS 11/25/17 11/25/17 Allergies Allergy/AdvReac Type Severity Reaction Status Date / Time latex Allergy Unknown Rash/Hives Verified 08/11/19 10:14 Review of Systems ROS Statement: Those systems with pertinent positive or pertinent negative responses have been documented in the HPI. ROS Other: All systems not noted in ROS Statement are negative. Past Medical History Past Medical History: Fibromyalgia, Hypertension, Sleep Apnea/CPAP/BIPAP Additional Past Medical History / Comment(s): bipolar; borderline personality; antisocial; eating disorder, PTSD History of Any Multi-Drug Resistant Organisms: None Reported, MRSA Date of last positivie culture/infection: 2004 MDRO Source:: unknown Past Surgical History: Back Surgery Additional Past Surgical History / Comment(s): neck surgery Past Anesthesia/Blood Transfusion Reactions: Unable to Obtain Past Psychological History: Anxiety, Bipolar, Depression, PTSD Smoking Status: Current every day smoker Past Alcohol Use History: None Reported Past Drug Use History: None Reported General Exam Limitations: altered mental status Course Vital Signs 08/11/19 08/11/19 08/11/19 07:43 08:19 09:54 Temperature 98.2 F Pulse Rate 91 88 92 Respiratory 18 18 18 Rate Blood Pressure 116/63 135/66 152/87 O2 Sat by Pulse 98 98 98 Oximetry Procedures - Laceration Laceration #1 Consent Obtained: verbal consent Indication: laceration Site: scalp (3 cm) Size (cm): 3 (cm) Description: linear Depth: simple, single layer Pre-repair: wound explored Size of Sutures: other (staple) Technique: other (luke) Patient Tolerated Procedure: well Medical Decision Making - Lab Data Result diagrams: 08/11/19 08:06 08/11/19 08:06 Lab Results 08/11/19 08/11/19 08/11/19 Range/Units 08:06 08:06 08:06 WBC 8.5 (3.8-10.6) k/uL RBC 4.61 (3.80-5.40) m/uL Hgb 13.5 (11.4-16.0) gm/dL Hct 43.1 (34.0-46.0) % MCV 93.7 (80.0-100.0) fL MCH 29.3 (25.0-35.0) pg MCHC 31.3 (31.0-37.0) g/dL RDW 15.9 H (11.5-15.5) % Plt Count 225 (150-450) k/uL Neutrophils % 76 % Lymphocytes % 17 % Monocytes % 4 % Eosinophils % 2 % Basophils % 0 % Neutrophils # 6.4 (1.3-7.7) k/uL Lymphocytes # 1.4 (1.0-4.8) k/uL Monocytes # 0.4 (0-1.0) k/uL Eosinophils # 0.2 (0-0.7) k/uL Basophils # 0.0 (0-0.2) k/uL PT 17.0 H (9.0-12.0) sec INR 1.7 H (<1.2) APTT 34.1 H (22.0-30.0) sec Sodium 142 (137-145) mmol/L Potassium 4.1 (3.5-5.1) mmol/L Chloride 115 H (98-107) mmol/L Carbon Dioxide 15 L (22-30) mmol/L Anion Gap 12 mmol/L BUN 18 H (7-17) mg/dL Creatinine 1.00 (0.52-1.04) mg/dL Est GFR (CKD-EPI)AfAm 70 (>60 ml/min/1.73 sqM) Est GFR (CKD-EPI)NonAf 61 (>60 ml/min/1.73 sqM) Glucose 90 (74-99) mg/dL Plasma Lactic Acid Slava (0.7-2.0) mmol/L Calcium 9.1 (8.4-10.2) mg/dL Magnesium 2.3 (1.6-2.3) mg/dL Total Bilirubin 0.2 (0.2-1.3) mg/dL AST 35 (14-36) U/L ALT 22 (4-34) U/L Alkaline Phosphatase 74 (38-126) U/L Ammonia (<30) umol/L Troponin I (0.000-0.034) ng/mL Total Protein 7.3 (6.3-8.2) g/dL Albumin 4.1 (3.5-5.0) g/dL TSH 0.919 (0.465-4.680) mIU/L Salicylates mg/dL Acetaminophen ug/mL [place] mmol/L Serum Alcohol <10 mg/dL 08/11/19 08/11/19 08/11/19 Range/Units 08:06 08:06 08:06 WBC (3.8-10.6) k/uL RBC (3.80-5.40) m/uL Hgb (11.4-16.0) gm/dL Hct (34.0-46.0) % MCV (80.0-100.0) fL MCH (25.0-35.0) pg MCHC (31.0-37.0) g/dL RDW (11.5-15.5) % Plt Count (150-450) k/uL Neutrophils % % Lymphocytes % % Monocytes % % Eosinophils % % Basophils % % Neutrophils # (1.3-7.7) k/uL Lymphocytes # (1.0-4.8) k/uL Monocytes # (0-1.0) k/uL Eosinophils # (0-0.7) k/uL Basophils # (0-0.2) k/uL PT (9.0-12.0) sec INR (<1.2) APTT (22.0-30.0) sec Sodium (137-145) mmol/L Potassium (3.5-5.1) mmol/L Chloride (98-107) mmol/L Carbon Dioxide (22-30) mmol/L Anion Gap mmol/L BUN (7-17) mg/dL Creatinine (0.52-1.04) mg/dL Est GFR (CKD-EPI)AfAm (>60 ml/min/1.73 sqM) Est GFR (CKD-EPI)NonAf (>60 ml/min/1.73 sqM) Glucose (74-99) mg/dL Plasma Lactic Acid [place]ava 0.7 (0.7-2.0) mmol/L Calcium (8.4-10.2) mg/dL Magnesium (1.6-2.3) mg/dL Total Bilirubin (0.2-1.3) mg/dL AST (14-36) U/L ALT (4-34) U/L Alkaline Phosphatase (38-126) U/L Ammonia <9 (<30) umol/L Troponin I <0.012 (0.000-0.034) ng/mL Total Protein (6.3-8.2) g/dL Albumin (3.5-5.0) g/dL TSH (0.465-4.680) mIU/L Salicylates 61.2 H* mg/dL Acetaminophen <10.0 ug/mL [place] mmol/L Serum Alcohol mg/dL 08/11/19 Range/Units 08:06 WBC (3.8-10.6) k/uL RBC (3.80-5.40) m/uL Hgb (11.4-16.0) gm/dL Hct (34.0-46.0) % MCV (80.0-100.0) fL MCH (25.0-35.0) pg MCHC (31.0-37.0) g/dL RDW (11.5-15.5) % Plt Count (150-450) k/uL Neutrophils % % Lymphocytes % % Monocytes % % Eosinophils % % Basophils % % Neutrophils # (1.3-7.7) k/uL Lymphocytes # (1.0-4.8) k/uL Monocytes # (0-1.0) k/uL Eosinophils # (0-0.7) k/uL Basophils # (0-0.2) k/uL PT (9.0-12.0) sec INR (<1.2) APTT (22.0-30.0) sec Sodium (137-145) mmol/L Potassium (3.5-5.1) mmol/L Chloride (98-107) mmol/L Carbon Dioxide (22-30) mmol/L Anion Gap mmol/L BUN (7-17) mg/dL Creatinine (0.52-1.04) mg/dL Est GFR (CKD-EPI)AfAm (>60 ml/min/1.73 sqM) Est GFR (CKD-EPI)NonAf (>60 ml/min/1.73 sqM) Glucose (74-99) mg/dL Plasma Lactic Acid Slava (0.7-2.0) mmol/L Calcium (8.4-10.2) mg/dL Magnesium (1.6-2.3) mg/dL Total Bilirubin (0.2-1.3) mg/dL AST (14-36) U/L ALT (4-34) U/L Alkaline Phosphatase (38-126) U/L Ammonia (<30) umol/L Troponin I (0.000-0.034) ng/mL Total Protein (6.3-8.2) g/dL Albumin (3.5-5.0) g/dL TSH (0.465-4.680) mIU/L Salicylates mg/dL Acetaminophen ug/mL [place] 0.7 mmol/L Serum Alcohol mg/dL Critical Care Time Critical Care Time: Yes Total Critical Care Time: 33 Disposition Clinical Impression: Salicylate intoxication Disposition: ADMITTED IP TO THIS [facility] Condition: Critical Referrals: Azam Self DO [Primary Care Provider] - 1-2 days Decision Time: 10:19
[2019-08-11 08:20] LABS: Basophils % (A) 0 %; Eosinophils # (A) 0.2 k/uL (0-0.7); Eosinophils % (A) 2 %; HCT 43.1 % (34.0-46.0); HGB 13.5 gm/dL (11.4-16.0); Lymphocytes # (A) 1.4 k/uL (1.0-4.8); Lymphocytes % (A) 17 %; MCH 29.3 pg (25.0-35.0); MCHC 31.3 g/dL (31.0-37.0); MCV 93.7 fL (80.0-100.0); Monocytes # (A) 0.4 k/uL (0-1.0); Monocytes % (A) 4 %; Neutrophils # (A) 6.4 k/uL (1.3-7.7); Neutrophils % (A) 76 %; Platelet Count 225 k/uL (150-450); RBC 4.61 m/uL (3.80-5.40); RDW 15.9 % (11.5-15.5); WBC 8.5 k/uL (3.8-10.6)
[2019-08-11 08:32] LABS: INR 1.7 (<1.2); Partial Thromboplastin Time 34.1 sec (22.0-30.0)
[2019-08-11 08:36] LABS: ALT 22 U/L (4-34); AST 35 U/L (14-36); African American GFR (CKD) 70 (>60 ml/min/1.73 sqM); Albumin 4.1 g/dL (3.5-5.0); Alcohol <10 mg/dL; Alkaline Phosphatase 74 U/L (38-126); Anion Gap 12 mmol/L; Blood Urea Nitrogen 18 mg/dL (7-17); Calcium 9.1 mg/dL (8.4-10.2); Carbon Dioxide 15 mmol/L (22-30); Chloride 115 mmol/L (98-107); Glucose 90 mg/dL (74-99); Lactic Acid, Venous 0.7 mmol/L (0.7-2.0); Magnesium 2.3 mg/dL (1.6-2.3); Non-African American GFR(CKD) 61 (>60 ml/min/1.73 sqM); Potassium 4.1 mmol/L (3.5-5.1); Sodium 142 mmol/L (137-145); Total Bilirubin 0.2 mg/dL (0.2-1.3); Total Protein 7.3 g/dL (6.3-8.2)
[2019-08-11] MEDS ORDERED: LORazepam 2 MG/ML INJ IV STA ×2 (08:38→10:20)
[2019-08-11 09:06] LABS: Acetaminophen <10.0 ug/mL
--- NOTE | 2019-08-11 09:17 | XR ---
EXAMINATION TYPE: XR pelvis AP view DATE OF EXAM: 08/11/2019 CLINICAL HISTORY: Fall injury with pain. TECHNIQUE: A single AP view of the pelvis is obtained. COMPARISON: CT abdomen and pelvis November 04, 2011. FINDINGS: There is no acute fracture/dislocation evident in the pelvis. The hip and sacroiliac join ts appear symmetric with mild axial joint space loss and acetabular spurring both hips redemonstrated . Pubic symphysis is intact. Extensive surgical change to the mid to lower lumbar spine and lumbosacr al junction redemonstrated. Contrast from recent CTA study is noted starting to fill the bladder thin the lower pelvis. IMPRESSION: There is no acute fracture or dislocation in the pelvis.
--- NOTE | 2019-08-11 09:22 | XR ---
EXAMINATION TYPE: XR chest 1V portable DATE OF EXAM: 08/11/2019 COMPARISON: Chest x-ray September 14, 2013. HISTORY: Fall injury with pain. TECHNIQUE: Single frontal view of the chest is obtained. FINDINGS: Osseous structures are somewhat demineralized. Fusion plate in the mid to lower cervical sp ine redemonstrated. New mild cardiomegaly with mild central vascular congestion. Patchy left basilar acute atelectasis and/or early infiltrate. Right lung is clear. No pleural effusion or pneumothorax n oted. IMPRESSION: Correlate for fluid overload state or CHF exacerbation as there is mild cardiomegaly wit h mild central vascular congestion now felt present. Patchy left basilar acute atelectasis and/or inf iltrate also noted.
[2019-08-11] MEDS ORDERED: NALOXONE 0.4 MG/ML 1 ML VIAL IV STA (09:29)
[2019-08-11 09:30] LABS: Salicylate 61.2 mg/dL
[2019-08-11] MEDS ORDERED: DEXTROSE 50% SYRINGE 50 ML IVP STA (09:31)
[2019-08-11] MEDS ORDERED: SODIUM BICARB 8.4% 50 ML SYR (1 MEQ/ML) IV STA (09:33)
--- NOTE | 2019-08-11 09:43 | CT ---
EXAMINATION TYPE: CT angio head neck DATE OF EXAM: 08/11/2019 HISTORY: Fall, altered mental status COMPARISON: NONE CT DLP: 449.2 mGycm. Automated Exposure Control for Dose Reduction was Utilized. TECHNIQUE: CTA scan of the neck is performed with IV Contrast, patient injected with 65 mL of Isovue 370, axial images are obtained, coronal and sagittal reformatted images are reviewed. Three-D recons tructed images are created on an independent workstation and reviewed. FINDINGS: Exam is limited by patient motion as the patient became combative on the table. Carotid/Vascular Structures: Emotional three-vessel branch pattern of the aortic arch is seen. Common carotid arteries are patent without hemodynamically significant stenosis. Motion artifact is seen of the carotid bulbs and proximal internal carotid arteries. Medial course of the internal carotid gildardo alban is incidentally noted. Less than 50% stenosis of the left proximal carotid artery by atheromatou s calcific plaquing. Vertebral arteries are patent bilaterally and codominant. Vertebrobasilar system is unremarkable. Pos terior to indicating arteries and anterior commuting artery appear patent. The left P1 segment is sli ghtly diminutive in comparison to the right however does appear patent. No sizable intracranial aneur ysm seen. No large vessel intracranial occlusion. Other: There is a 5 mm solid right upper lobe pulmonary nodule and scattered areas of atelectasis. An terior cervical fusion device bridges the C4-C5 vertebral levels. There is reversal usual cervical lo rdosis. Moderate degenerative change. IMPRESSION: 1. Exam is somewhat limited by patient motion as the patient became combative on the table, particula rly limited of the carotid bulbs and cervical internal carotid arteries. Within the limitations no he modynamically significant stenosis, aneurysmal dilatation, or occlusion is seen of the major arterial vasculature of the head or neck. 2. Right upper lobe 5 mm pulmonary nodule. Nonemergent follow-up CT thorax is recommended for full ev aluation of the chest.
--- NOTE | 2019-08-11 09:48 | CT ---
EXAMINATION TYPE: CT brain cspine wo con DATE OF EXAM: 08/11/2019 COMPARISON: CTA brain of the same date and CT brain dated 01/16/2014 HISTORY: Fall, head injury, AMS CT DLP: 1370.6 mGycm. Automated Exposure Control for Dose Reduction was Utilized. TECHNIQUE: CT scan of the head and cervical spine are performed without contrast. FINDINGS: There is no acute intracranial hemorrhage, mass effect, or midline shift identified. The ventricles and sulci are within normal limits in size. The globes are intact and the visualized sin uses are clear. There is a 9 mm right parietal-occipital scalp hematoma with overlying contusion. Cervical spine is visualized in its entirety from C1 through upper thoracic levels and demonstrates s atisfactory alignment without evidence of acute fracture or dislocation. Anterior cervical fusion de vice bridges the C5-C6 vertebral levels. There is reversal usual cervical lordosis. Facets remain ali gned. Prevertebral soft tissue appears within normal limits. Moderate degenerative change. The C1-C2 articulation is unremarkable. Motion artifact limits the lung apices and portions of the cervical s pine. Spinal canal is limited on CT. IMPRESSION: 1. There is no acute fracture or dislocation evident in the cervical spine. Reversal of the usual cer vical lordosis that may be on the basis of muscular strain/spasm or patient positioning and moderate degenerative changes spine. 2. No acute intracranial hemorrhage, mass effect, or midline shift is seen. Right parieto-occipital s calp hematoma and contusion. Hematoma measures 9 mm.
[2019-08-11 09:52] LABS: Lithium 0.7 mmol/L
[2019-08-11] MEDS ORDERED: NALOXONE 0.4 MG/ML 1 ML VIAL IV PRN (10:00)
[2019-08-11 10:20] LABS: ABG Base Excess -9.5 mmol/L; ABG HCO3 15 mmol/L (21-25); ABG Oxygen Saturation 96.3 % (94-97); ABG PCO2 21 mmHg (35-45); ABG PH 7.44 (7.35-7.45); ABG PO2 91 mmHg (83-108); ABG TCO2 15 mmol/L (19-24); Allen Test Performed? Yes
[2019-08-11 10:31] LABS: Appearance,Urine Clear (Clear); Bilirubin,Urine Negative (Negative); Blood,Urine Negative (Negative); Color,Urine Light Yellow; Glucose,Urine (UA) Negative (Negative); Ketones,Urine 2+ (Negative); Leukocyte Esterase,Urine Negative (Negative); Nitrite,Urine Negative (Negative); Protein,Urine Negative (Negative); Specific Gravity,Urine 1.041 (1.001-1.035); Urobilinogen,Urine <2.0 mg/dL (<2.0)
[2019-08-11 10:46] LABS: Cocaine Screen,Urine Not Detected (NotDetected); Phencyclidine Screen,Urine Not Detected (NotDetected); Urn Cannabinoid Scrn Not Detected (NotDetected)
[2019-08-11 10:47] LABS: Amphetamine Screen,Urine Not Detected (NotDetected); Barbiturate Screen,Urine Not Detected (NotDetected); Benzodiazepines Screen,Urine Not Detected (NotDetected); Methadone Screen, Urine Not Detected (NotDetected); Opiate Screen,Urine Detected (NotDetected); Oxycodone Screen, Urine Not Detected (NotDetected); Tricyclic Antidepressant,Urine Detected (NotDetected)
[2019-08-11] MEDS: DEXTROSE 5% IN WATER 1,000 ML with SODIUM BICARB (1 MEQ/ML) 150 ML IV SCH ×2 (10:53→19:09)
--- NOTE | 2019-08-11 11:03 | P.OP ---
Date of Procedure: 08/11/19 Description of Procedure: DATE OF SERVICE: [08/11/2019]. SURGEON: Asay Stern DO TELEPHONE DIRECTORY DISTRIBUTOR DRIVER: None PREOPERATIVE DIAGNOSIS: [Salicylate toxicity, need for urgent dialysis]. POSTOPERATIVE DIAGNOSIS: [Same]. OPERATION: Ultrasound guided dialysis catheter placement, right femoral vein ANESTHESIA: Local ESTIMATED BLOOD LOSS: Less than 5 mL SPECIMENS REMOVED: None COMPLICATIONS: None immediately apparent Patient was placed in supine position in the ER. The right groin was prepped and draped in usual sterile fashion. Ultrasound was utilized and the right femoral vein was identified. The skin overlying was anesthetized with 1% lidocaine plain. The vein was accessed under ultrasound guidance with a Cook needle. Guidewire was passed without resistance. The tissues were serially dilated over the guidewire. A previously flushed 20 cm dialysis catheter was placed. It was sutured in place. Aspirated and flushed freely. It was secured with a Biopatch and dressing. The patient tolerated the procedure well.
--- NOTE | 2019-08-11 11:06 | P.GSCN ---
History of Present Illness Consult date: 08/11/19 History of present illness: The patient is a 64-year-old female who presented unable to present any history, with her son. She supposedly fell earlier today and when he went to check on her she was on the ground. He is unsure of any ingestion. She does have a history of bipolar disorder and previous inpatient psych admissions. On evaluation by the ER she was found to have salicylate toxicity on lab work and therefore we are asked to see the patient regarding urgent dialysis catheter placement. Past Medical History Past Medical History: Fibromyalgia, Hypertension, Sleep Apnea/CPAP/BIPAP Additional Past Medical History / Comment(s): bipolar; borderline personality; antisocial; eating disorder, PTSD History of Any Multi-Drug Resistant Organisms: None Reported, MRSA Year Discovered:: 2004 MDRO Source:: unknown Past Surgical History: Back Surgery Additional Past Surgical History / Comment(s): neck surgery Past Anesthesia/Blood Transfusion Reactions: Unable to Obtain Past Psychological History: Anxiety, Bipolar, Depression, PTSD Smoking Status: Current every day smoker Past Alcohol Use History: None Reported Past Drug Use History: None Reported Medications and Allergies Home Medications Medication Instructions Recorded Confirmed Type Ergocalciferol (Vitamin D2) 50,000 unit PO Q7D 11/25/17 08/11/19 History [Vitamin D2] Morphine Sulfate Ir [MSIR] 30 mg PO QID 11/25/17 08/11/19 History QUEtiapine [SEROquel] 800 mg PO HS 11/25/17 08/11/19 History Albuterol Nebulized [Ventolin 2.5 mg INHALATION RT-QID PRN 08/11/19 08/11/19 History Nebulized] Albuterol Sulfate [Ventolin HFA] 1 - 2 puff INHALATION RT-Q4H PRN 08/11/19 08/11/19 History Citalopram Hydrobromide [CeleXA] 40 mg PO DAILY 08/11/19 08/11/19 History Levothyroxine Sodium [Synthroid] 50 mcg PO DAILY 08/11/19 08/11/19 History [place] Carbonate [Opheim 300 mg PO QAM 08/11/19 08/11/19 History Carbonate ER] [place] Carbonate [[place] 450 mg PO HS 08/11/19 08/11/19 History Carbonate ER] traZODone HCL 300 mg PO HS 08/11/19 08/11/19 History Allergies Allergy/AdvReac Type Severity Reaction Status Date / Time latex Allergy Unknown Rash/Hives Verified 08/11/19 10:14 Surgical - Exam Vital Signs Temp Pulse Resp BP Pulse Ox 98.2 F 91 18 116/63 98 08/11/19 07:43 08/11/19 07:43 08/11/19 07:43 08/11/19 07:43 08/11/19 07:43 Gen. is a confused and obtunded female. Does not answer questions properly. No acute distress. HEENT is normocephalic, no evidence of significant trauma. Heart is regular. No respiratory distress. Abdomen soft. Extremity show no clubbing, cyanosis or edema. Does not follow commands. Skin without rashes. Results - Labs 08/11/19 08:06 08/11/19 08:06 Abnormal Lab Results - Last 24 Hours (Table) 08/11/19 08/11/19 08/11/19 Range/Units 08:06 08:06 08:06 RDW 15.9 H (11.5-15.5) % PT 17.0 H (9.0-12.0) sec INR 1.7 H (<1.2) APTT 34.1 H (22.0-30.0) sec ABG pCO2 (35-45) mmHg ABG HCO3 (21-25) mmol/L ABG Total CO2 (19-24) mmol/L Chloride 115 H (98-107) mmol/L Carbon Dioxide 15 L (22-30) mmol/L BUN 18 H (7-17) mg/dL Ur Specific [place] (1.001-1.035) Urine Ketones (Negative) Salicylates mg/dL Urine Opiates Screen (NotDetected) U Tricyclic Antidepress (NotDetected) 08/11/19 08/11/19 08/11/19 Range/Units 08:06 10:15 10:17 RDW (11.5-15.5) % PT (9.0-12.0) sec INR (<1.2) APTT (22.0-30.0) sec ABG pCO2 21 L (35-45) mmHg ABG HCO3 15 L (21-25) mmol/L ABG Total CO2 15 L (19-24) mmol/L Chloride (98-107) mmol/L Carbon Dioxide (22-30) mmol/L BUN (7-17) mg/dL Ur Specific [place] 1.041 H (1.001-1.035) Urine Ketones 2+ H (Negative) Salicylates 61.2 H* mg/dL Urine Opiates Screen Detected H (NotDetected) U Tricyclic Antidepress Detected H (NotDetected) Diabetes panel 08/11/19 Range/Units 08:06 Sodium 142 (137-145) mmol/L Potassium 4.1 (3.5-5.1) mmol/L Chloride 115 H (98-107) mmol/L Carbon Dioxide 15 L (22-30) mmol/L BUN 18 H (7-17) mg/dL Creatinine 1.00 (0.52-1.04) mg/dL Glucose 90 (74-99) mg/dL Calcium 9.1 (8.4-10.2) mg/dL AST 35 (14-36) U/L ALT 22 (4-34) U/L Alkaline Phosphatase 74 (38-126) U/L Total Protein 7.3 (6.3-8.2) g/dL Albumin 4.1 (3.5-5.0) g/dL Thyroid panel 08/11/19 Range/Units 08:06 TSH 0.919 (0.465-4.680) mIU/L Calcium panel 08/11/19 Range/Units 08:06 Calcium 9.1 (8.4-10.2) mg/dL Albumin 4.1 (3.5-5.0) g/dL Pituitary panel 08/11/19 Range/Units 08:06 Sodium 142 (137-145) mmol/L Potassium 4.1 (3.5-5.1) mmol/L Chloride 115 H (98-107) mmol/L Carbon Dioxide 15 L (22-30) mmol/L BUN 18 H (7-17) mg/dL Creatinine 1.00 (0.52-1.04) mg/dL Glucose 90 (74-99) mg/dL Calcium 9.1 (8.4-10.2) mg/dL TSH 0.919 (0.465-4.680) mIU/L Adrenal panel 08/11/19 Range/Units 08:06 Sodium 142 (137-145) mmol/L Potassium 4.1 (3.5-5.1) mmol/L Chloride 115 H (98-107) mmol/L Carbon Dioxide 15 L (22-30) mmol/L BUN 18 H (7-17) mg/dL Creatinine 1.00 (0.52-1.04) mg/dL Glucose 90 (74-99) mg/dL Calcium 9.1 (8.4-10.2) mg/dL Total Bilirubin 0.2 (0.2-1.3) mg/dL AST 35 (14-36) U/L ALT 22 (4-34) U/L Alkaline Phosphatase 74 (38-126) U/L Total Protein 7.3 (6.3-8.2) g/dL Albumin 4.1 (3.5-5.0) g/dL Assessment and Plan Assessment: Salicylate toxicity Plan: We'll plan to place femoral temporary dialysis catheter. Risks and benefits dis cussed with son who seemingly understands and is willing to proceed. Consent form is signed
--- NOTE | 2019-08-11 11:16 | P.CNPUL ---
History of Present Illness Consult date: 08/11/19 Chief complaint: Altered mental status History of present illness: 64-year-old female patient came into the emergency department with altered men yoly status. The patient lives with her son. The son checked on him yesterday and the patient was was having generalized weakness and she was falling and she was somewhat altered. Based on that, the patient was brought into the hospital upon the request of her son. The son has noted that her mentation was considerably altered and the patient was having difficulty with speech and abnormal gait. She has had a long history of psychiatric disorder including suicide. She has had history of bipolar disorder maintained on lithium on outpatient basis. In the ED, initial suspicion was CVA. The patient was found to be aphasic altered, and somewhat agitated. Nevertheless, her neurologic exam was nonfocal and she was moving all 4 extremities and no seizure activity was noted on this patient. As noted, she was on multiple psychiatric medication. The levels were sent and the lithium level came back at 0.7. The patient subsequently found to have negative alcohol levels, negative acetaminophen, salicylate level was toxic and the he was released the range of 61.2. Urine drug screen was positive for opiates and tricyclic antidepressant. The urinalysis was positive for +2 ketones. The blood work showed a component of metabolic acidosis which was of a non-anion gap type with an anion gap of 12. Renal function was stable. Blood gases that was done on room air showed a pH of 7.44 with a pCO2 of 21 and pO2 of 91. The patient had a white cell count of 8.5 with a hemoglobin of 15.5. INR was at 1.7 with a PT of 17 and a PTT of 34.1. EKG was a normal sinus rhythm. Otherwise it was an unremarkable EKG with some nonspecific changes. No OK or QTc prolongation. According to the son, the patient takes aspirin. Nevertheless, he has not noted any significant suicidal intention of this patient and the timing of salicylate intake was not known to us. Computed tomography scan of the brain was somewhat limited as the patient was combative. The patient had no acute fractures of the cervical spine. The patient had no evidence of intracranial hemorrhage or mass effect or midline shift on the CAT scan of the brain. The patient will be transferred to the intensive care unit. Discussed the case with nephrology. Us B inserted and the patient will be started on hemodialysis regarding acute salicylate toxicity. Monitor outpatient medications are Seroquel and trazodone. Review of Systems ROS unobtainable: due to mental status Past Medical History Past Medical History: Fibromyalgia, Hypertension, Sleep Apnea/CPAP/BIPAP Additional Past Medical History / Comment(s): bipolar; borderline personality; antisocial; eating disorder, PTSD History of Any Multi-Drug Resistant Organisms: None Reported, MRSA Date of last positivie culture/infection: 2004 MDRO Source:: unknown Past Surgical History: Back Surgery Additional Past Surgical History / Comment(s): neck surgery Past Anesthesia/Blood Transfusion Reactions: Unable to Obtain Past Psychological History: Anxiety, Bipolar, Depression, PTSD Smoking Status: Current every day smoker Past Alcohol Use History: None Reported Past Drug Use History: None Reported Medications and Allergies Home Medications Medication Instructions Recorded Confirmed Type Ergocalciferol (Vitamin D2) 50,000 unit PO Q7D 11/25/17 08/11/19 History [Vitamin D2] Morphine Sulfate Ir [MSIR] 30 mg PO QID 11/25/17 08/11/19 History QUEtiapine [SEROquel] 800 mg PO HS 11/25/17 08/11/19 History Albuterol Nebulized [Ventolin 2.5 mg INHALATION RT-QID PRN 08/11/19 08/11/19 History Nebulized] Albuterol Sulfate [Ventolin HFA] 1 - 2 puff INHALATION RT-Q4H PRN 08/11/19 08/11/19 History Citalopram Hydrobromide [CeleXA] 40 mg PO DAILY 08/11/19 08/11/19 History Levothyroxine Sodium [Synthroid] 50 mcg PO DAILY 08/11/19 08/11/19 History [place] Carbonate [[place] 300 mg PO QAM 08/11/19 08/11/19 History Carbonate ER] [place] Carbonate [[place] 450 mg PO HS 08/11/19 08/11/19 History Carbonate ER] traZODone HCL 300 mg PO HS 08/11/19 08/11/19 History Allergies Allergy/AdvReac Type Severity Reaction Status Date / Time latex Allergy Unknown Rash/Hives Verified 08/11/19 10:14 Physical Exam Vitals: Vital Signs Temp Pulse Resp BP Pulse Ox 08/11/19 10:56 98 F 100 18 144/72 100 08/11/19 10:54 18 08/11/19 09:54 92 18 152/87 98 08/11/19 08:19 88 18 135/66 98 08/11/19 07:43 98.2 F 91 18 116/63 98 Intake and Output 08/10/19 08/11/19 08/11/19 22:59 06:59 14:59 Other: Weight 81.647 kg The patient is altered mentation, somewhat agitated and the patient was given Ativan 2 mg for comfort as the patient had to have a dialysis catheter inserted bibasilar surgery. As stated, no active seizure activity noted and the patient was moving all 4 extremities without any limitation. Head exam was generally normal. There was no scleral icterus or corneal arcus. Mucous membranes were moist. Neck was supple and without jugular venous distension, thyromegaly, or carotid bruits. Carotids were easily palpable bilaterally. There was no adenopathy. Lungs were clear to auscultation and percussion, and with normal diaphragmatic excursion. No wheezes or rales were noted. Cardiac exam revealed the PMI to be normally situated and sized. The rhythm was regular and no extrasystoles were noted during several minutes of auscultation. The first and second heart sounds were normal and physiologic splitting of the second heart sound was noted. There were no murmurs, rubs, clicks, or gallops. Abdominal exam revealed normal bowel sounds. The abdomen was soft, non-tender, and without masses, organomegaly, or appreciable enlargement of the abdominal aorta. Examination of the extremities revealed easily palpable radial, femoral and pedal pulses. There was no cyanosis, clubbing or edema. Examination of the skin revealed no evidence of significant rashes, suspicious appearing nevi or other concerning lesions. Neurologically the patient was altered. Agitated at times. Unable to speak full sentences and her speech was mumbled. Unable to respond to questions. Unable to provide any history. Pupils are equal and reactive to light. No nystagmus. No clonus. Results - Laboratory Findings CBC and BMP: 08/11/19 08:06 08/11/19 08:06 ABG ABG pH 7.44 (7.35-7.45) 08/11/19 10:17 ABG pCO2 21 mmHg (35-45) L 08/11/19 10:17 ABG pO2 91 mmHg (83-108) 08/11/19 10:17 ABG O2 Saturation 96.3 % (94-97) 08/11/19 10:17 PT/INR, D-dimer PT 17.0 sec (9.0-12.0) H 08/11/19 08:06 INR 1.7 (<1.2) H 08/11/19 08:06 Abnormal lab findings: Abnormal Labs 08/11/19 08/11/19 08/11/19 08:06 08:06 08:06 RDW 15.9 H PT 17.0 H INR 1.7 H APTT 34.1 H ABG pCO2 ABG HCO3 ABG Total CO2 Chloride 115 H Carbon Dioxide 15 L BUN 18 H Ur Specific [place] Urine Ketones Salicylates Urine Opiates Screen U Tricyclic Antidepress 08/11/19 08/11/19 08/11/19 08:06 10:15 10:17 RDW PT INR APTT ABG pCO2 21 L ABG HCO3 15 L ABG Total CO2 15 L Chloride Carbon Dioxide BUN Ur Specific [place] 1.041 H Urine Ketones 2+ H Salicylates 61.2 H* Urine Opiates Screen Detected H U Tricyclic Antidepress Detected H - Diagnostic Findings Chest x-ray: image reviewed Assessment and Plan Plan: 1 acute salicylate toxicity versus subacute toxicity. The exact amount and timing of salicylate ingestion is not known to us. Bili level was quite elevated and the lethal range and the patient will be started on hemodialysis. No significant metabolic acidosis. In fact the patient has a mild component of non-anion gap metabolic acidosis which is not typical for salicylate toxicity. 2 mild metabolic acidosis of a non-anion gap type 3 altered mental status secondary to above 4 history of bipolar disorder/borderline percent disorder/antisocial behavio r/PTSD/eating disorder and the patient has been maintained on a combination of lithium and Seroquel and trazodone on an outpatient basis. No clear indication for his suicidal attempt at this point in time 5 fibromyalgia 6 hypertension 7 obstructive sleep apnea Plan Bicarb infusions rate of 150 mL an hour Proceed with hemodialysis regarding acute salicylate toxicity Hold the rest of the medications for now Transfer this patient to the intensive care unit. Monitored hemodynamics Urine drug screen, EKG and the rest of the levels were all noted Heparin subcu for DVT prophylaxis IV Protonix Covid 19 nasopharyngeal swab We'll continue to follow.
[2019-08-11 11:51] LABS: Glucose,Whole Blood 220 mg/dL (75-99)
[2019-08-11] MEDS: PANTOPRAZOLE 40 MG/10 ML VIAL IVP SCH (12:14)
--- NOTE | 2019-08-11 12:14 | CONS ---
CONSULTATION REASON FOR CONSULT: Salicylate poisoning. HISTORY OF PRESENT ILLNESS: Patient is a 64-year-old female who was admitted to the hospital with mental status changes. Patient's son brought her in and she had been progressively confused over the last 1-2 days. The patient does take aspirin about 4/5 per day and at this time son was not sure if the patient had been taking more than her usual. He stated that she does have a history of bipolar disorder and has had worsening of mentation almost on a monthly basis which lasts for few days and then is then and is then subsequently resolved. Patient's blood pressure was has been 116-130 mm of Hg systolic. Her salicylate level was 61.2 and given her significant altered mentation and unclear history of prior salicylate poisoning with chronic use of salicylates, it was decided to proceed with hemodialysis. No fever, chills, nausea, vomiting, abdominal pain or diarrhea. Serum creatinine was 1.0 mg/dL. The patient does have anion gap metabolic acidosis. PAST MEDICAL HISTORY: Bipolar disorder, osteoarthritis, fibromyalgia, obstructive sleep apnea, anxiety, posttraumatic stress disorder. SOCIAL HISTORY: Positive for smoking. Past surgical history back surgery. MEDICATIONS: At home included lithium, Seroquel, Synthroid, Ativan, vitamin D2, Cymbalta. EXAMINATION: Currently patient is lying in bed. She is having a Stern catheter placed. She is awake, confused. Blood pressure was 152/87, heart rate 92 per minute patient is afebrile examination of the heart S1, S2. Examination of the lungs, decreased breath sounds at bases. Abdomen is soft, obese, nontender. Examination of lower extremities shows no significant edema. [employer] exam shows patient moving all 4 extremities. She is confused. LABS: Show sodium 142, potassium 4.1, chloride 115 CO2 is 15, BUN 18, serum creatinine 1.0. Salicylate level 61.2. Urine was positive for opiates and tricyclic antidepressants. [place] was 0.7. Alcohol less than 10. ASSESSMENT: 1. Salicylate poisoning acute with possibly a history of chronic toxicity. However, at this time we do not have any prior levels. The patient does take about 4-5 aspirins on a daily basis. Given the altered mentation, which is acute, I will proceed with hemodialysis. 2. Anion gap metabolic acidosis associated with salicylate poisoning, although anion gap is not significantly high. 3. Drug screen positive for tricyclic antidepressants and opiate as well. 4. Altered mentation associated with salicylate toxicity expect improvement post dialysis. 5. History of bipolar disorder. PLAN: Hemodialysis today, repeat level later on tonight. Continue with ICU care. Continue aggressive IV hydration and continue with the bicarb drip. Thank you for this consultation. Will continue to follow the patient with you during her hospitalization. MMFLOYDL / HELION: [id number] /
[2019-08-11] MEDS: HALOPERIDOL LACTATE 5 MG/ML 1 ML VIAL IVP PRN ×2 (12:15→20:13)
[2019-08-11] MEDS: SODIUM CHLORIDE 0.9% 1,000 ML IV SCH (14:30)
--- NOTE | 2019-08-11 15:23 | P.HPIM ---
History of Present Illness 64-year-old female came in the with altered mental status patient does have history of psychiatric disorder bipolar disorder and episodes of psychosis during that time patient can get agitated. Patient had some metabolic acidosis for some reason salicylate levels were opted which were very high. Patient does have some metabolic acidosis although this is non-anion gap metabolic acidosis with mild anion gap metabolic acidosis because of which patient is being admitted. His possible salicylate toxicity. I'm unable to get any kind of history from the patient has patient just received Haldol for agitation. Patient drug screen is positive for opiates and tricyclic antidepressants which her prescription medications for her. Rest of the workup is negative for any sepsis. Patient had a CAT scan of the brain which did not show any intracranial hemorrhage or mass effect or midline shift. Because of her very high levels of for salicylates patient is being initiated on hemodialysis. Patient the is on lithium as an outpatient basis for regular disorder. Patient doesn't have any respiratory acidosis. Review of Systems unable to obtain Past Medical History Past Medical History: Fibromyalgia, Hypertension, Sleep Apnea/CPAP/BIPAP Additional Past Medical History / Comment(s): bipolar; borderline personality; antisocial; eating disorder, PTSD, chronic aspirin user - 4-8 tablets a day - about 40 years, chronic pain History of Any Multi-Drug Resistant Organisms: MRSA Date of last positivie culture/infection: 2004 MDRO Source:: unknown Past Surgical History: Back Surgery Additional Past Surgical History / Comment(s): neck surgery Past Anesthesia/Blood Transfusion Reactions: No Reported Reaction Smoking Status: Current every day smoker - Past Family History Sister(s) Family Medical History: Cancer, Renal Disease Additional Family Medical History / Comment(s): breast cancer, kidney cancer Medications and Allergies Home Medications Medication Instructions Recorded Confirmed Type Ergocalciferol (Vitamin D2) 50,000 unit PO Q7D 11/25/17 08/11/19 History [Vitamin D2] Morphine Sulfate Ir [MSIR] 30 mg PO QID 11/25/17 08/11/19 History QUEtiapine [SEROquel] 800 mg PO HS 11/25/17 08/11/19 History Albuterol Nebulized [Ventolin 2.5 mg INHALATION RT-QID PRN 08/11/19 08/11/19 History Nebulized] Albuterol Sulfate [Ventolin HFA] 1 - 2 puff INHALATION RT-Q4H PRN 08/11/19 08/11/19 History Citalopram Hydrobromide [CeleXA] 40 mg PO DAILY 08/11/19 08/11/19 History Levothyroxine Sodium [Synthroid] 50 mcg PO DAILY 08/11/19 08/11/19 History [place] Carbonate [[place] 300 mg PO QAM 08/11/19 08/11/19 History Carbonate ER] [place] Carbonate [[place] 450 mg PO HS 08/11/19 08/11/19 History Carbonate ER] traZODone HCL 300 mg PO HS 08/11/19 08/11/19 History Allergies Allergy/AdvReac Type Severity Reaction Status Date / Time latex Allergy Unknown Rash/Hives Verified 08/11/19 10:14 Physical Exam Vitals: Vital Signs Temp Pulse Pulse Resp BP BP Pulse Ox 08/11/19 15:05 99.0 F 78 20 109/70 08/11/19 14:00 72 15 108/49 96 08/11/19 13:45 77 19 108/59 97 08/11/19 13:30 86 18 107/55 96 08/11/19 13:15 82 18 118/52 96 08/11/19 13:00 91 17 115/55 96 08/11/19 12:45 97 21 112/71 96 08/11/19 12:30 111 H 31 H 161/86 97 08/11/19 12:15 110 H 29 H 144/106 97 08/11/19 12:00 105 H 45 H 144/106 97 08/11/19 11:50 99.1 F 111 H 36 H 111/83 97 08/11/19 11:49 123 H 29 H 178/122 96 08/11/19 11:23 113 H 28 H 187/94 98 08/11/19 10:56 98 F 100 18 144/72 100 08/11/19 10:54 18 08/11/19 09:54 92 18 152/87 98 08/11/19 08:19 88 18 135/66 98 08/11/19 07:43 98.2 F 91 18 116/63 98 Intake and Output 08/11/19 08/11/19 08/11/19 06:59 14:59 22:59 Intake Total 450 Output Total 855 Balance -405 Intake: IV 450 Dextrose 5% in Water 1, 450 000 ml @ 150 mls/hr IV . Q7H40M LACEY with Sodium Bicarb (1 Meq/ml) 150 ml Rx#:[id number] Output: Urine 855 Other: Voiding Method Indwelling Catheter Weight 84.3 kg PHYSICAL EXAMINATION: GENERAL: Drowsy sleeping, not in any acute distress. Well developed, well nourished. Obese HEENT: Pupils are round and equally reacting to light. EOMI. No scleral icterus. No conjunctival pallor. Normocephalic, atraumatic. No pharyngeal erythema. No thyromegaly. CARDIOVASCULAR: S1 and S2 present. No murmurs, rubs, or gallops. PULMONARY: Chest is clear to auscultation, no wheezing or crackles. ABDOMEN: Soft, nontender, nondistended, normoactive bowel sounds. No palpable organomegaly. MUSCULOSKELETAL: No joint swelling or deformity. EXTREMITIES: No cyanosis, clubbing, or pedal edema. NEUROLOGICAL: Unable to assess SKIN: No rashes. Results CBC & Chem 7: 08/11/19 08:06 08/11/19 08:06 Labs: Abnormal Lab Results - Last 24 Hours (Table) 08/11/19 08/11/19 08/11/19 Range/Units 08:06 08:06 08:06 RDW 15.9 H (11.5-15.5) % PT 17.0 H (9.0-12.0) sec INR 1.7 H (<1.2) APTT 34.1 H (22.0-30.0) sec ABG pCO2 (35-45) mmHg ABG HCO3 (21-25) mmol/L ABG Total CO2 (19-24) mmol/L Chloride 115 H (98-107) mmol/L Carbon Dioxide 15 L (22-30) mmol/L BUN 18 H (7-17) mg/dL POC Glucose (mg/dL) (75-99) mg/dL Ur Specific [place] (1.001-1.035) Urine Ketones (Negative) Salicylates mg/dL Urine Opiates Screen (NotDetected) U Tricyclic Antidepress (NotDetected) 08/11/19 08/11/19 08/11/19 Range/Units 08:06 10:15 10:17 RDW (11.5-15.5) % PT (9.0-12.0) sec INR (<1.2) APTT (22.0-30.0) sec ABG pCO2 21 L (35-45) mmHg ABG HCO3 15 L (21-25) mmol/L ABG Total CO2 15 L (19-24) mmol/L Chloride (98-107) mmol/L Carbon Dioxide (22-30) mmol/L BUN (7-17) mg/dL POC Glucose (mg/dL) (75-99) mg/dL Ur Specific [place] 1.041 H (1.001-1.035) Urine Ketones 2+ H (Negative) Salicylates 61.2 H* mg/dL Urine Opiates Screen Detected H (NotDetected) U Tricyclic Antidepress Detected H (NotDetected) 08/11/19 Range/Units 11:49 RDW (11.5-15.5) % PT (9.0-12.0) sec INR (<1.2) APTT (22.0-30.0) sec ABG pCO2 (35-45) mmHg ABG HCO3 (21-25) mmol/L ABG Total CO2 (19-24) mmol/L Chloride (98-107) mmol/L Carbon Dioxide (22-30) mmol/L BUN (7-17) mg/dL POC Glucose (mg/dL) 220 H (75-99) mg/dL Ur Specific [place] (1.001-1.035) Urine Ketones (Negative) Salicylates mg/dL Urine Opiates Screen (NotDetected) U Tricyclic Antidepress (NotDetected) Thrombosis Risk Factor Assmnt - Choose All That Apply Any of the Below Risk Factors Present?: Yes Each Factor Represents 1 point: Abnormal pulmonary function (COPD), Medical pt on bed rest, Obesity (BMI >25) Other Risk Factors: Yes Each Risk Factor Represents 2 Points: Age 61-74 years, Central venous access Other congenital or acquired thrombophilia - If yes, enter type in comment: No Thrombosis Risk Factor Assessment Total Risk Factor Score: 7 Thrombosis Risk Factor Assessment Level: High Risk Assessment and Plan Plan: -Salicylate toxicity either subacute or acute patient apparently takes for 325 mg of aspirin every day. May have taken more since her kong. Patient liver enzymes are within normal limits except for INR which is 1.7 patient does have metabolic acidosis and is undergoing hemodialysis at this time and received some bicarbonate -Anion gap and non-anion gap metabolic acidosis anion gap is probably seconded [place] noniron gap [place] acidosis most probably due to hyperchloremia, hemodialysis and bicarbonate supplementation -Toxic encephalopathy probably from salicylate [place] can be secondary to bipolar disorder as well as -Bipolar disorder with acute psychosis and kong once her toxicities addressed the patient to go back on lithium and Seroquel, psychiatric was consulted. As per the son there is no suicidal ideation -Fibromyalgia -Hypertension -Obstructive sleep apnea -DVT prophylaxis with subcutaneous heparin GI prophylaxis with Protonix
[2019-08-11] MEDS: HEPARIN SODIUM,PORCINE 5,000 UNIT/ML 1 ML VIAL SQ SCH ×2 (16:01→23:23)
[2019-08-11 16:14] LABS: African American GFR (CKD) >90 (>60 ml/min/1.73 sqM); Anion Gap 10 mmol/L; Blood Urea Nitrogen 7 mg/dL (7-17); Calcium 8.6 mg/dL (8.4-10.2); Carbon Dioxide 24 mmol/L (22-30); Chloride 101 mmol/L (98-107); Glucose 124 mg/dL (74-99); Magnesium 1.9 mg/dL (1.6-2.3); Non-African American GFR(CKD) >90 (>60 ml/min/1.73 sqM); Phosphorus 1.8 mg/dL (2.5-4.5); Potassium 3.1 mmol/L (3.5-5.1); Salicylate 27.3 mg/dL; Sodium 135 mmol/L (137-145)
[2019-08-11] MEDS ORDERED: Potassium Replacement Protocol 1 EACH MISC MISCELLANE PRN (16:38)
[2019-08-11] MEDS: POTASSIUM CHLORIDE 10 MEQ in WATER FOR INJECTION 1 100ML.BAG IVPB SCH ×4 (16:55→20:13)
[2019-08-11 18:02] LABS: Glucose,Whole Blood 126 mg/dL (75-99)
[2019-08-11 23:56] LABS: Glucose,Whole Blood 139 mg/dL (75-99)
[2019-08-12 00:03] LABS: Potassium 2.8 mmol/L (3.5-5.1); Salicylate 15.6 mg/dL
[2019-08-12] MEDS: POTASSIUM CHLORIDE 10 MEQ in WATER FOR INJECTION 1 100ML.BAG IVPB SCH ×6 (00:24→06:05)
[2019-08-12] MEDS: DEXTROSE 5% IN WATER 1,000 ML with SODIUM BICARB (1 MEQ/ML) 150 ML IV SCH (00:25)
[2019-08-12 02:16] LABS: Hepatitis B Surface AB- Quant 3.5 mIU/mL; Hepatitis B Surface Antibody Non-Reactive (Non-Reactive); Hepatitis B Surface Antigen Non-Reactive (Non-Reactive)
[2019-08-12 05:06] LABS: Basophils % (A) 0 %; Eosinophils # (A) 0.1 k/uL (0-0.7); Eosinophils % (A) 1 %; HGB 12.3 gm/dL (11.4-16.0); Lymphocytes # (A) 1.9 k/uL (1.0-4.8); Lymphocytes % (A) 31 %; MCH 30.6 pg (25.0-35.0); MCHC 32.4 g/dL (31.0-37.0); MCV 94.2 fL (80.0-100.0); Mean Platelet Volume 9.2; Monocytes # (A) 0.5 k/uL (0-1.0); Monocytes % (A) 8 %; Neutrophils # (A) 3.7 k/uL (1.3-7.7); Neutrophils % (A) 59 %; Platelet Count 192 k/uL (150-450); RBC 4.03 m/uL (3.80-5.40); RDW 15.8 % (11.5-15.5); WBC 6.4 k/uL (3.8-10.6)
[2019-08-12 05:15] LABS: African American GFR (CKD) >90 (>60 ml/min/1.73 sqM); Anion Gap 4 mmol/L; Blood Urea Nitrogen 8 mg/dL (7-17); Calcium 7.9 mg/dL (8.4-10.2); Carbon Dioxide 34 mmol/L (22-30); Chloride 99 mmol/L (98-107); Glucose 130 mg/dL (74-99); Non-African American GFR(CKD) >90 (>60 ml/min/1.73 sqM); Phosphorus 1.6 mg/dL (2.5-4.5); Potassium 3.1 mmol/L (3.5-5.1); Sodium 137 mmol/L (137-145)
[2019-08-12] MEDS ORDERED: Phosphorus Replacement Protoco 1 EACH MISC MISCELLANE PRN (05:19)
[2019-08-12] MEDS: SODIUM PHOSPHATE 10 MMOL in SODIUM CHLORIDE 0.9% 250 ML IVPB SCH ×2 (05:52→08:23)
[2019-08-12] MEDS: LEVOTHYROXINE 50 MCG TAB PO SCH (05:52)
[2019-08-12] MEDS ORDERED: ERGOCALCIFEROL 50,000 UNIT CAP PO SCH (08:00)
[2019-08-12] MEDS: LITHIUM CARBONATE 300 MG CAP PO SCH (08:55)
[2019-08-12] MEDS: SODIUM CHLORIDE 0.9% 1,000 ML IV SCH ×2 (08:55→10:40)
[2019-08-12] MEDS: HEPARIN SODIUM,PORCINE 5,000 UNIT/ML 1 ML VIAL SQ SCH ×3 (08:55→23:38)
[2019-08-12] MEDS: PANTOPRAZOLE 40 MG/10 ML VIAL IVP SCH (08:55)
--- NOTE | 2019-08-12 10:01 | P.PN ---
Progress Note - Text Progress Note Date: 08/12/19 Patient seen and examined. Tolerated dialysis well yesterday without any significant issue. No acute distress. No acute distress Heart regular at this time. Lungs clear. Abdomen soft. Right groin dialysis catheter site clean and dry. Salicylate toxicity, now resolved after dialysis Plan to remove dialysis catheter later today per nephro recommendations
[2019-08-12] MEDS: MORPHINE SULFATE IR 15 MG TABLET PO SCH ×4 (11:06→21:04)
[2019-08-12] MEDS: POTASSIUM CHLORIDE ER 20 MEQ TAB.ER PO SCH ×2 (11:07→18:11)
--- NOTE | 2019-08-12 11:19 | P.PN ---
Subjective Progress Note Date: 08/12/19 64-year-old female patient came into the emergency department with altered ment al status. The patient lives with her son. The son checked on him yesterday and the patient was was having generalized weakness and she was falling and she was somewhat altered. Based on that, the patient was brought into the hospital upon the request of her son. The son has noted that her mentation was considerably altered and the patient was having difficulty with speech and abnormal gait. She has had a long history of psychiatric disorder including suicide. She has had history of bipolar disorder maintained on lithium on outpatient basis. In the ED, initial suspicion was CVA. The patient was found to be aphasic altered, and somewhat agitated. Nevertheless, her neurologic exam was nonfocal and she was moving all 4 extremities and no seizure activity was noted on this patient. As noted, she was on multiple psychiatric medication. The levels were sent and the lithium level came back at 0.7. The patient subsequently found to have negative alcohol levels, negative acetaminophen, salicylate level was toxic and the he was released the range of 61.2. Urine drug screen was positive for opiates and tricyclic antidepressant. The urinalysis was positive for +2 ketones. The blood work showed a component of metabolic acidosis which was of a non-anion gap type with an anion gap of 12. Renal function was stable. Blood gases that was done on room air showed a pH of 7.44 with a pCO2 of 21 and pO2 of 91. The patient had a white cell count of 8.5 with a hemoglobin of 15.5. INR was at 1.7 with a PT of 17 and a PTT of 34.1. EKG was a normal sinus rhythm. Otherwise it was an unremarkable EKG with some nonspecific changes. No NE or QTc prolongation. According to the son, the patient takes aspirin. Nevertheless, he has not noted any significant suicidal intention of this patient and the timing of salicylate intake was not known to us. Computed tomography scan of the brain was somewhat limited as the patient was combative. The patient had no acute fractures of the cervical spine. The patient had no evidence of intracranial hemorrhage or mass effect or midline shift on the CAT scan of the brain. The patient will be transferred to the intensive care unit. Discussed the case with nephrology. Us B inserted and the patient will be started on hemodialysis regarding acute salicylate toxicity. Monitor outpatient medications are Seroquel and trazodone. On today's evaluation of 08/12/2019, the patient is being seen in follow-up. She is doing very well. She is active normal supplementation. Upon further questioning, the patient admits to take a total of 12-14 tablets of aspirin on a daily basis and she's not sure of the exact dose. I think her salicylate toxicity was rather subacute or chronic in nature. Note that she underwent one session of hemodialysis. The levels dropped significantly and there is down to 15. She is doing well. She is following commands and answering questions appropriately. No altered mentation. No suicidal ideation. Her blood work shows normal renal function. She has developed some metabolic alkalosis and this is related to the bicarb infusion. She still has a temper dialysis catheter in her right groin. No focal neurological deficit. No headache. No cough. No sputum production. No chest tightness. No wheezing. Tolerating diet. No nausea or vomiting. No hypoglycemia. Potassium is being replaced and the level is down to 3.2. Outpatient medication is to be resumed including the combination of lithium and trazodone and Seroquel. No agitation. No delirium at this point in time. Objective - Vital Signs Vital signs: Vital Signs Temp 98.8 F 08/12/19 08:00 Pulse 68 08/12/19 11:00 Resp 20 08/12/19 11:00 BP 122/60 08/12/19 11:00 Pulse Ox 94 L 08/12/19 11:00 Intake & Output 08/11/19 08/12/19 08/12/19 18:59 06:59 18:59 Intake Total 1310 2560 915 Output Total 1315 1535 950 Balance -5 1025 -35 Weight 84.3 kg 86.5 kg Intake: IV 1310 2560 915 Dextrose 5% in Water 1, 1050 1800 300 000 ml @ 150 mls/hr IV . Q7H40M [facility] with Sodium Bicarb (1 Meq/ml) 150 ml Rx#:[id number] Potassium Chloride 10 meq 200 700 100 In Water For Injection 1 100ml.bag @ 100 mls/hr IVPB Q1HR [facility] Rx#: [id number] Sodium Chloride 0.9% 1, 60 60 20 000 ml @ 20 mls/hr IV . Q24H [facility] Rx#:[id number] Sodium Chloride 0.9% 1, 120 000 ml @ 40 mls/hr IV . Q24H [facility] Rx#:[id number] Sodium Phosphate 10 mmol 0 375 In Sodium Chloride 0.9% 250 ml @ 125 mls/hr IVPB Q2H [facility] Rx#:[id number] Output: Urine 1315 1535 950 Other: Voiding Method Indwelling Catheter Indwelling Catheter Indwelling Catheter - Exam The patient appeared well nourished and normally developed. Vital signs as documented. Head exam is unremarkable. No scleral icterus or corneal arcus noted. Neck is without jugular venous distension, thyromegaly, or carotid bruits. Carotid upstrokes are brisk bilaterally. Lungs are clear to auscultation and percussion. Cardiac exam reveals the PMI to be normally sized and situated. Rhythm is regular. First and second heart sounds normal. No murmurs, rubs or gallops. Abdominal exam reveals normal bowel sounds, no masses, no organomegaly and no aortic enlargement. Extremities are nonedematous and both femoral and pedal pulses are normal.Examination of the skin revealed no evidence of significant rashes, suspicious appearing nevi or other concerning lesions. The patient has a right femoral temporary dialysis catheter in place. Neurologically awake and alert and there is no focal logical deficits. - Labs CBC & Chem 7: 08/12/19 04:39 08/12/19 09:46 Labs: Abnormal Lab Results - Last 24 Hours (Table) 08/11/19 08/11/19 08/11/19 Range/Units 11:49 15:45 18:00 RDW (11.5-15.5) % Sodium 135 L (137-145) mmol/L Potassium 3.1 L (3.5-5.1) mmol/L Carbon Dioxide (22-30) mmol/L Creatinine 0.46 L (0.52-1.04) mg/dL Glucose 124 H (74-99) mg/dL POC Glucose (mg/dL) 220 H 126 H (75-99) mg/dL Calcium (8.4-10.2) mg/dL Phosphorus 1.8 L (2.5-4.5) mg/dL 08/11/19 08/11/19 08/12/19 Range/Units 23:15 23:54 04:39 RDW 15.8 H (11.5-15.5) % Sodium (137-145) mmol/L Potassium 2.8 L (3.5-5.1) mmol/L Carbon Dioxide (22-30) mmol/L Creatinine (0.52-1.04) mg/dL Glucose (74-99) mg/dL POC Glucose (mg/dL) 139 H (75-99) mg/dL Calcium (8.4-10.2) mg/dL Phosphorus (2.5-4.5) mg/dL 08/12/19 08/12/19 Range/Units 04:39 09:46 RDW (11.5-15.5) % Sodium (137-145) mmol/L Potassium 3.1 L 3.2 L (3.5-5.1) mmol/L Carbon Dioxide 34 H (22-30) mmol/L Creatinine (0.52-1.04) mg/dL Glucose 130 H (74-99) mg/dL POC Glucose (mg/dL) (75-99) mg/dL Calcium 7.9 L (8.4-10.2) mg/dL Phosphorus 1.6 L (2.5-4.5) mg/dL Microbiology - Last 24 Hours (Table) 08/11/19 08:06 Blood Culture - Preliminary Blood No Growth after 24 hours Assessment and Plan Plan: 1 acute salicylate toxicity versus subacute toxicity. The exact amount and timing of salicylate ingestion is not known to us. Bili level was quite elevated and the lethal range and the patient will be started on hemodialysis. No significant metabolic acidosis. In fact the patient has a mild component of non-anion gap metabolic acidosis which is not typical for salicylate toxicity. The patient was treated with hemodialysis. Levels improved. Mental status also improved. On today's evaluation the patient admits to take around 14 tablets of salicylate or aspirin on a daily basis. 2 mild metabolic acidosis of a non-anion gap type, recovered and the patient is slightly alkalotic on today's evaluation related to her bicarb infusion 3 altered mental status secondary to above, normalized and recovered 4 history of bipolar disorder/borderline percent disorder/antisocial behavior/PTSD/eating disorder and the patient has been maintained on a combination of lithium and Seroquel and trazodone on an outpatient basis. No clear indication for his suicidal attempt at this point in time 5 fibromyalgia 6 hypertension 7 obstructive sleep apnea Plan Discontinue the bicarb infusion and put the patient normal saline today to 40 mL an hour No need for further hemodialysis Dialysis catheter can be removed The patient will have his lithium, Seroquel and trazodone restarted Monitor mental status Morphine sulfate for pain control 30 g by mouth twice a day She can be chested out of the intensive care unit and later stage Psychiatric evaluation Sitter at the bedside We'll continue to follow
--- NOTE | 2019-08-12 15:34 | P.PN ---
Subjective 64-year-old pleasant female was admitted for rest ulcer toxically. Patient is more awake today we're able to talk to have patient is able to provide good history to me patient is not trying to commit suicide patient was having uncontrollable headaches because of which patient took quite a bit of aspirin. Patient underwent hemodialysis yesterday patient metabolic acidosis resolved. Constitutional: Denied any fatigue denied any fever. Cardio vascular: denied any chest pain, palpitations Gastrointestinal denied any nausea vomiting Pulmonary: Denied any shortness of breath cough Neurologic denied any new focal deficits All inpatient medications were reviewed and appropriate changes in these medications as dictated in the interval history and assessment and plan. Objective - Vital Signs Vital signs: Vital Signs Temp 98.8 F 08/12/19 12:00 Pulse 78 08/12/19 15:00 Resp 17 08/12/19 15:00 BP 159/101 08/12/19 15:00 Pulse Ox 95 08/12/19 15:00 Intake & Output 08/11/19 08/12/19 08/12/19 18:59 06:59 18:59 Intake Total 1310 2560 1075 Output Total 1315 1535 1375 Balance -5 1025 -300 Weight 84.3 kg 86.5 kg Intake: IV 1310 2560 1075 Dextrose 5% in Water 1, 1050 1800 300 000 ml @ 150 mls/hr IV . Q7H40M [facility] with Sodium Bicarb (1 Meq/ml) 150 ml Rx#:[id number] Potassium Chloride 10 meq 200 700 100 In Water For Injection 1 100ml.bag @ 100 mls/hr IVPB Q1HR [facility] Rx#: [id number] Sodium Chloride 0.9% 1, 60 60 20 000 ml @ 20 mls/hr IV . Q24H [facility] Rx#:[id number] Sodium Chloride 0.9% 1, 280 000 ml @ 40 mls/hr IV . Q24H [facility] Rx#:[id number] Sodium Phosphate 10 mmol 0 375 In Sodium Chloride 0.9% 250 ml @ 125 mls/hr IVPB Q2H [facility] Rx#:[id number] Output: Urine 1315 1535 1375 Other: Voiding Method Indwelling Catheter Indwelling Catheter Toilet - Exam PHYSICAL EXAMINATION: GENERAL: The patient is alert and oriented x3, not in any acute distress. Well developed, well nourished. HEENT: Pupils are round and equally reacting to light. EOMI. No scleral icterus. No conjunctival pallor. Normocephalic, atraumatic. No pharyngeal erythema. No thyromegaly. CARDIOVASCULAR: S1 and S2 present. No murmurs, rubs, or gallops. PULMONARY: Chest is clear to auscultation, no wheezing or crackles. ABDOMEN: Soft, nontender, nondistended, normoactive bowel sounds. No palpable organomegaly. MUSCULOSKELETAL: No joint swelling or deformity. EXTREMITIES: No cyanosis, clubbing, or pedal edema. NEUROLOGICAL: Gross neurological examination did not reveal any focal deficits. SKIN: No rashes. - Labs CBC & Chem 7: 08/12/19 04:39 08/12/19 14:45 Labs: Abnormal Lab Results - Last 24 Hours (Table) 08/11/19 08/11/19 08/11/19 Range/Units 15:45 18:00 23:15 RDW (11.5-15.5) % Sodium 135 L (137-145) mmol/L Potassium 3.1 L 2.8 L (3.5-5.1) mmol/L Carbon Dioxide (22-30) mmol/L Creatinine 0.46 L (0.52-1.04) mg/dL Glucose 124 H (74-99) mg/dL POC Glucose (mg/dL) 126 H (75-99) mg/dL Calcium (8.4-10.2) mg/dL Phosphorus 1.8 L (2.5-4.5) mg/dL 08/11/19 08/12/19 08/12/19 Range/Units 23:54 04:39 04:39 RDW 15.8 H (11.5-15.5) % Sodium (137-145) mmol/L Potassium 3.1 L (3.5-5.1) mmol/L Carbon Dioxide 34 H (22-30) mmol/L Creatinine (0.52-1.04) mg/dL Glucose 130 H (74-99) mg/dL POC Glucose (mg/dL) 139 H (75-99) mg/dL Calcium 7.9 L (8.4-10.2) mg/dL Phosphorus 1.6 L (2.5-4.5) mg/dL 08/12/19 08/12/19 Range/Units 09:46 14:45 RDW (11.5-15.5) % Sodium (137-145) mmol/L Potassium 3.2 L 3.4 L (3.5-5.1) mmol/L Carbon Dioxide (22-30) mmol/L Creatinine (0.52-1.04) mg/dL Glucose (74-99) mg/dL POC Glucose (mg/dL) (75-99) mg/dL Calcium (8.4-10.2) mg/dL Phosphorus (2.5-4.5) mg/dL Microbiology - Last 24 Hours (Table) 08/11/19 08:06 Blood Culture - Preliminary Blood No Growth after 24 hours Assessment and Plan Plan: -Salicylate toxicity : Patient is status post hemodialysis minimal is doses resolved. Vision is being resumed on her antipsychotic medications -Anion gap and non-anion gap metabolic acidosis anion gap is probably secondary to salicylate, metabolic acidosis resolved patient is actually alkalotic now because of IV bicarbonate transfusion -Toxic encephalopathy probably from salicylate toxicity, encephalopathy resolved -Bipolar disorder with acute psychosis and kong patient is being resumed on her antipsychotic and bipolar medications -Fibromyalgia -Hypertension -Obstructive sleep apnea -DVT prophylaxis with subcutaneous heparin GI prophylaxis with Protonix
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
[2019-08-12] MEDS: traZODone HCL 100 MG TAB PO SCH (20:56)
[2019-08-12] MEDS: QUEtiapine 400 MG TAB PO SCH (20:57)
[2019-08-12] MEDS ORDERED: IPRATROPIUM-ALBUTEROL 3 ML NEB INHALATION PRN (21:14)
[2019-08-12] MEDS ORDERED: IPRATROPIUM-ALBUTEROL 3 ML NEB ONE (21:19)
[2019-08-13 05:27] LABS: Basophils % (A) 1 %; Eosinophils # (A) 0.1 k/uL (0-0.7); Eosinophils % (A) 3 %; HCT 35.5 % (34.0-46.0); HGB 11.3 gm/dL (11.4-16.0); Hypochromasia Moderate; Lymphocytes # (A) 2.3 k/uL (1.0-4.8); Lymphocytes % (A) 43 %; MCH 30.8 pg (25.0-35.0); MCHC 31.9 g/dL (31.0-37.0); MCV 96.5 fL (80.0-100.0); Mean Platelet Volume 9.1; Monocytes # (A) 0.5 k/uL (0-1.0); Monocytes % (A) 9 %; Neutrophils # (A) 2.2 k/uL (1.3-7.7); Neutrophils % (A) 42 %; Platelet Count 166 k/uL (150-450); RBC 3.68 m/uL (3.80-5.40); RDW 15.3 % (11.5-15.5); WBC 5.4 k/uL (3.8-10.6)
[2019-08-13 05:43] LABS: African American GFR (CKD) >90 (>60 ml/min/1.73 sqM); Anion Gap 4 mmol/L; Blood Urea Nitrogen 8 mg/dL (7-17); Calcium 8.8 mg/dL (8.4-10.2); Carbon Dioxide 27 mmol/L (22-30); Chloride 105 mmol/L (98-107); Glucose 97 mg/dL (74-99); Non-African American GFR(CKD) >90 (>60 ml/min/1.73 sqM); Phosphorus 2.7 mg/dL (2.5-4.5); Potassium 4.1 mmol/L (3.5-5.1); Sodium 136 mmol/L (137-145)
[2019-08-13] MEDS: LEVOTHYROXINE 50 MCG TAB PO SCH (06:30)
[2019-08-13] MEDS: HEPARIN SODIUM,PORCINE 5,000 UNIT/ML 1 ML VIAL SQ SCH ×3 (08:52→22:10)
[2019-08-13] MEDS: MORPHINE SULFATE IR 15 MG TABLET PO SCH ×4 (08:52→22:04)
[2019-08-13] MEDS: SODIUM CHLORIDE 0.9% 1,000 ML IV SCH (08:53)
[2019-08-13] MEDS: LITHIUM CARBONATE 300 MG CAP PO SCH (08:53)
[2019-08-13] MEDS: PANTOPRAZOLE 40 MG TABLET PO SCH (08:53)
--- NOTE | 2019-08-13 11:32 | P.PN ---
Subjective Progress Note Date: 08/13/19 64-year-old female patient came into the emergency department with altered ment al status. The patient lives with her son. The son checked on him yesterday and the patient was was having generalized weakness and she was falling and she was somewhat altered. Based on that, the patient was brought into the hospital upon the request of her son. The son has noted that her mentation was considerably altered and the patient was having difficulty with speech and abnormal gait. She has had a long history of psychiatric disorder including suicide. She has had history of bipolar disorder maintained on lithium on outpatient basis. In the ED, initial suspicion was CVA. The patient was found to be aphasic altered, and somewhat agitated. Nevertheless, her neurologic exam was nonfocal and she was moving all 4 extremities and no seizure activity was noted on this patient. As noted, she was on multiple psychiatric medication. The levels were sent and the lithium level came back at 0.7. The patient subsequently found to have negative alcohol levels, negative acetaminophen, salicylate level was toxic and the he was released the range of 61.2. Urine drug screen was positive for opiates and tricyclic antidepressant. The urinalysis was positive for +2 ketones. The blood work showed a component of metabolic acidosis which was of a non-anion gap type with an anion gap of 12. Renal function was stable. Blood gases that was done on room air showed a pH of 7.44 with a pCO2 of 21 and pO2 of 91. The patient had a white cell count of 8.5 with a hemoglobin of 15.5. INR was at 1.7 with a PT of 17 and a PTT of 34.1. EKG was a normal sinus rhythm. Otherwise it was an unremarkable EKG with some nonspecific changes. No CO or QTc prolongation. According to the son, the patient takes aspirin. Nevertheless, he has not noted any significant suicidal intention of this patient and the timing of salicylate intake was not known to us. Computed tomography scan of the brain was somewhat limited as the patient was combative. The patient had no acute fractures of the cervical spine. The patient had no evidence of intracranial hemorrhage or mass effect or midline shift on the CAT scan of the brain. The patient will be transferred to the intensive care unit. Discussed the case with nephrology. Us B inserted and the patient will be started on hemodialysis regarding acute salicylate toxicity. Monitor outpatient medications are Seroquel and trazodone. On today's evaluation of 08/12/2019, the patient is being seen in follow-up. She is doing very well. She is active normal supplementation. Upon further questioning, the patient admits to take a total of 12-14 tablets of aspirin on a daily basis and she's not sure of the exact dose. I think her salicylate toxicity was rather subacute or chronic in nature. Note that she underwent one session of hemodialysis. The levels dropped significantly and there is down to 15. She is doing well. She is following commands and answering questions appropriately. No altered mentation. No suicidal ideation. Her blood work shows normal renal function. She has developed some metabolic alkalosis and this is related to the bicarb infusion. She still has a temper dialysis catheter in her right groin. No focal neurological deficit. No headache. No cough. No sputum production. No chest tightness. No wheezing. Tolerating diet. No nausea or vomiting. No hypoglycemia. Potassium is being replaced and the level is down to 3.2. Outpatient medication is to be resumed including the combination of lithium and trazodone and Seroquel. No agitation. No delirium at this point in time. On 08/13/2019 on seeing the patient for a follow-up. Patient is doing well. Earlier this when she was little bit drowsy as she woke up. She subsequently improved. She is on a combination of Seroquel and there is little that she takes overnight. She is also on lithium. She is producing adequate amount of u rine output. No hypotension. No altered mentation. Her blood work shows improvement in the metabolic alkalosis as the patient was taken off the bicarb infusion. Rest of the blood work and electrodes are all within normal limits. Hemoglobin is stable at 11.3. Psychiatric evaluation the patient is a patient was advised to undergo and a in-house psych evaluation and treatment. There is a sitter at the bedside. indication for suicidal ideation. Dialysis catheter has been removed. Objective - Vital Signs Vital signs: Vital Signs Temp 98.1 F 08/13/19 08:00 Pulse 65 08/13/19 10:00 Resp 12 08/13/19 10:00 BP 92/52 08/13/19 10:00 Pulse Ox 93 L 08/13/19 10:00 Intake & Output 08/12/19 08/13/19 08/13/19 18:59 06:59 18:59 Intake Total 1195 480 200 Output Total 1375 850 Balance -180 -370 200 Weight 91.6 kg Intake: IV 1195 480 200 Dextrose 5% in Water 1, 300 000 ml @ 150 mls/hr IV . Q7H40M LACEY with Sodium Bicarb (1 Meq/ml) 150 ml Rx#:[id number] Potassium Chloride 10 meq 100 In Water For Injection 1 100ml.bag @ 100 mls/hr IVPB Q1HR LACEY Rx#: [id number] Sodium Chloride 0.9% 1, 20 000 ml @ 20 mls/hr IV . Q24H LACEY Rx#:[id number] Sodium Chloride 0.9% 1, 400 480 200 000 ml @ 40 mls/hr IV . Q24H LACEY Rx#:[id number] Sodium Phosphate 10 mmol 375 In Sodium Chloride 0.9% 250 ml @ 125 mls/hr IVPB Q2H LACEY Rx#:[id number] Output: Urine 1375 850 Other: Voiding Method Toilet Bedside Commode Bedside Commode # Voids 1 1 # Bowel Movements 1 - Exam The patient appeared well nourished and normally developed. Vital signs as documented. Head exam is unremarkable. No scleral icterus or corneal arcus noted. Neck is without jugular venous distension, thyromegaly, or carotid bruits. Carotid upstrokes are brisk bilaterally. Lungs are clear to auscultation and percussion. Cardiac exam reveals the PMI to be normally sized and situated. Rhythm is regular. First and second heart sounds normal. No murmurs, rubs or gallops. Abdominal exam reveals normal bowel sounds, no masses, no organomegaly and no aortic enlargement. Extremities are nonedematous and both femoral and ped al pulses are normal.Examination of the skin revealed no evidence of significant rashes, suspicious appearing nevi or other concerning lesions. Neurologically awake and alert and there is no focal logical deficits. - Labs CBC & Chem 7: 08/13/19 04:49 08/13/19 04:49 Labs: Abnormal Lab Results - Last 24 Hours (Table) 08/12/19 08/13/19 08/13/19 Range/Units 14:45 04:49 04:49 RBC 3.68 L (3.80-5.40) m/uL Hgb 11.3 L (11.4-16.0) gm/dL Sodium 136 L (137-145) mmol/L Potassium 3.4 L (3.5-5.1) mmol/L Microbiology - Last 24 Hours (Table) 08/11/19 08:06 Blood Culture - Preliminary Blood No Growth after 48 hours Assessment and Plan Plan: 1 acute salicylate toxicity versus subacute toxicity. The exact amount and timing of salicylate ingestion is not known to us. The salicylate was quite elevated and the lethal range and the patient will be started on hemodialysis. No significant metabolic acidosis. Patient required a session of dialysis and subsequently level is improved in mental status improved. Dialysis catheter has been removed. Patient is improved clinically. 2 mild metabolic acidosis of a non-anion gap type, recovered 3 altered mental status secondary to above, normalized and recovered 4 history of bipolar disorder/borderline percent disorder/antisocial behavior/PTSD/eating disorder and the patient has been maintained on a combination of lithium and Seroquel and trazodone on an outpatient basis. No clear indication for his suicidal attempt at this point in time 5 fibromyalgia 6 hypertension 7 obstructive sleep apnea Plan Condition is stable The patient will be moved to inpatient psychiatry evaluation and treatment Continue the combination of lithium, Seroquel and trazodone restarted Monitor mental status Morphine sulfate for pain control 30 g by mouth twice a day Sitter at the bedside We'll continue to follow
--- NOTE | 2019-08-13 13:41 | P.PN ---
Subjective Progress Note Date: 08/12/19 Principal diagnosis: This is a 64-year-old female seen in consultation because of salicylate overdose with the level of 61. Came in with mental status changes. She was dialyzed y esterday with a Sharan catheter in her right groin. Salicylate level is down to 15 today. acid base disorders or resolved. She is awake alert oriented comfortable. Has a good appetite and denies any fever chills cough. She says she is slightly short of breath On admission her blood gases shows pH of 7.44 pCO2 is 21 PO2 was 91 on room air. She had mild respiratory alkalosis. Anion gap was 10 bicarb was 24. Normal LFTs Objective - Vital Signs Vital signs: Vital Signs Temp 98.8 F 08/12/19 08:00 Pulse 70 08/12/19 08:00 Resp 13 08/12/19 08:00 BP 116/54 08/12/19 08:00 Pulse Ox 93 L 08/12/19 08:00 Intake & Output 08/11/19 08/12/19 08/12/19 18:59 06:59 18:59 Intake Total 1310 2560 795 Output Total 1315 1535 525 Balance -5 1025 270 Weight 84.3 kg 86.5 kg Intake: IV 1310 2560 795 Dextrose 5% in Water 1, 1050 1800 300 000 ml @ 150 mls/hr IV . Q7H40M LACEY with Sodium Bicarb (1 Meq/ml) 150 ml Rx#:[id number] Potassium Chloride 10 meq 200 700 100 In Water For Injection 1 100ml.bag @ 100 mls/hr IVPB Q1HR LACEY Rx#: [id number] Sodium Chloride 0.9% 1, 60 60 20 000 ml @ 20 mls/hr IV . Q24H LACEY Rx#:[id number] Sodium Phosphate 10 mmol 0 375 In Sodium Chloride 0.9% 250 ml @ 125 mls/hr IVPB Q2H LACEY Rx#:[id number] Output: Urine 1315 1535 525 Other: Voiding Method Indwelling Catheter Indwelling Catheter On examination is awake alert oriented comfortable HEENT exam no JVP neck is supple no facial asymmetry Lungs are clear to auscultation good air entry bilaterally Heart sounds are unremarkable. No murmur gallop rub Monitor shows normal sinus rhythm Abdomen soft nontender no organomegaly no masses Extremity exam was no edema Neurologically awake alert oriented - Labs CBC & Chem 7: 08/13/19 04:49 08/13/19 04:49 Labs: Abnormal Lab Results - Last 24 Hours (Table) 08/11/19 08/11/19 08/11/19 Range/Units 08:06 10:15 10:17 RDW (11.5-15.5) % ABG pCO2 21 L (35-45) mmHg ABG HCO3 15 L (21-25) mmol/L ABG Total CO2 15 L (19-24) mmol/L Sodium (137-145) mmol/L Potassium (3.5-5.1) mmol/L Carbon Dioxide (22-30) mmol/L Creatinine (0.52-1.04) mg/dL Glucose (74-99) mg/dL POC Glucose (mg/dL) (75-99) mg/dL Calcium (8.4-10.2) mg/dL Phosphorus (2.5-4.5) mg/dL Ur Specific Organ 1.041 H (1.001-1.035) Urine Ketones 2+ H (Negative) Salicylates 61.2 H* mg/dL Urine Opiates Screen Detected H (NotDetected) U Tricyclic Antidepress Detected H (NotDetected) 08/11/19 08/11/19 08/11/19 Range/Units 11:49 15:45 18:00 RDW (11.5-15.5) % ABG pCO2 (35-45) mmHg ABG HCO3 (21-25) mmol/L ABG Total CO2 (19-24) mmol/L Sodium 135 L (137-145) mmol/L Potassium 3.1 L (3.5-5.1) mmol/L Carbon Dioxide (22-30) mmol/L Creatinine 0.46 L (0.52-1.04) mg/dL Glucose 124 H (74-99) mg/dL POC Glucose (mg/dL) 220 H 126 H (75-99) mg/dL Calcium (8.4-10.2) mg/dL Phosphorus 1.8 L (2.5-4.5) mg/dL Ur Specific Organ (1.001-1.035) Urine Ketones (Negative) Salicylates mg/dL Urine Opiates Screen (NotDetected) U Tricyclic Antidepress (NotDetected) 08/11/19 08/11/19 08/12/19 Range/Units 23:15 23:54 04:39 RDW 15.8 H (11.5-15.5) % ABG pCO2 (35-45) mmHg ABG HCO3 (21-25) mmol/L ABG Total CO2 (19-24) mmol/L Sodium (137-145) mmol/L Potassium 2.8 L (3.5-5.1) mmol/L Carbon Dioxide (22-30) mmol/L Creatinine (0.52-1.04) mg/dL Glucose (74-99) mg/dL POC Glucose (mg/dL) 139 H (75-99) mg/dL Calcium (8.4-10.2) mg/dL Phosphorus (2.5-4.5) mg/dL Ur Specific Organ (1.001-1.035) Urine Ketones (Negative) Salicylates mg/dL Urine Opiates Screen (NotDetected) U Tricyclic Antidepress (NotDetected) 08/12/19 Range/Units 04:39 RDW (11.5-15.5) % ABG pCO2 (35-45) mmHg ABG HCO3 (21-25) mmol/L ABG Total CO2 (19-24) mmol/L Sodium (137-145) mmol/L Potassium 3.1 L (3.5-5.1) mmol/L Carbon Dioxide 34 H (22-30) mmol/L Creatinine (0.52-1.04) mg/dL Glucose 130 H (74-99) mg/dL POC Glucose (mg/dL) (75-99) mg/dL Calcium 7.9 L (8.4-10.2) mg/dL Phosphorus 1.6 L (2.5-4.5) mg/dL Ur Specific Organ (1.001-1.035) Urine Ketones (Negative) Salicylates mg/dL Urine Opiates Screen (NotDetected) U Tricyclic Antidepress (NotDetected) Assessment and Plan Plan: Impression 1. Salicylate overdose dialyzed and has now become normalized. 2. Improving acid-base Recommendation We will discontinue his Stern catheter as well as the Sharan catheter and watch her salicylate level and her electrolytes and acid-base.
--- NOTE | 2019-08-13 13:49 | P.PN ---
Subjective Progress Note Date: 08/13/19 Principal diagnosis: This is a 64-year-old female seen in consultation because of salicylate overdose with the level of 61. Came in with mental status changes. She was dialyzed the day before yesterday with a Sharan catheter in her right groin. Salicylate level is down to 15 yesterday . acid base disorders or resolved. She is awake alert oriented comfortable. This morning though she has some nausea. No vomiting she complains of constipation . No fever chills cough or shortness of breath no headache . On admission her blood gases shows pH of 7.44 pCO2 is 21 PO2 was 91 on room air. She had mild respiratory alkalosis. Anion gap was 10 bicarb was 24. Normal LFTs Objective - Vital Signs Vital signs: Vital Signs Temp 98.3 F 08/13/19 12:00 Pulse 72 08/13/19 13:00 Resp 10 L 08/13/19 13:00 BP 111/69 08/13/19 13:00 Pulse Ox 95 08/13/19 13:00 Intake & Output 08/12/19 08/13/19 08/13/19 18:59 06:59 18:59 Intake Total 1195 480 280 Output Total 1375 850 Balance -180 -370 280 Weight 91.6 kg Intake: IV 1195 480 280 Dextrose 5% in Water 1, 300 000 ml @ 150 mls/hr IV . Q7H40M LACEY with Sodium Bicarb (1 Meq/ml) 150 ml Rx#:[id number] Potassium Chloride 10 meq 100 In Water For Injection 1 100ml.bag @ 100 mls/hr IVPB Q1HR LACEY Rx#: [id number] Sodium Chloride 0.9% 1, 20 000 ml @ 20 mls/hr IV . Q24H LACEY Rx#:[id number] Sodium Chloride 0.9% 1, 400 480 280 000 ml @ 40 mls/hr IV . Q24H LACEY Rx#:[id number] Sodium Phosphate 10 mmol 375 In Sodium Chloride 0.9% 250 ml @ 125 mls/hr IVPB Q2H LACEY Rx#:[id number] Output: Urine 1375 850 Other: Voiding Method Toilet Bedside Commode Bedside Commode # Voids 1 1 # Bowel Movements 1 On examination she is awake alert oriented HEENT exam no JVP neck is supple no facial asymmetry Lungs are clear to auscultation good air entry bilaterally Heart sounds unremarkable no murmur rub gallop Abdomen soft nontender Extremity exam was no edema Neurologically awake alert oriented No asterixis - Labs CBC & Chem 7: 08/13/19 04:49 08/13/19 04:49 Labs: Abnormal Lab Results - Last 24 Hours (Table) 08/12/19 08/13/19 08/13/19 Range/Units 14:45 04:49 04:49 RBC 3.68 L (3.80-5.40) m/uL Hgb 11.3 L (11.4-16.0) gm/dL Sodium 136 L (137-145) mmol/L Potassium 3.4 L (3.5-5.1) mmol/L Microbiology - Last 24 Hours (Table) 08/11/19 08:06 Blood Culture - Preliminary Blood No Growth after 48 hours Assessment and Plan Assessment: Impression 1. Salicylate overdose dialyzed once and normalized. Sharan discontinued yesterday 2. Hypokalemia resolved. 3. Acid base is normal 4. Complains of nausea Condition Will sign off. Thank you for this consultation
--- NOTE | 2019-08-13 14:21 | P.DS ---
Providers Date of admission: 08/11/19 10:01 Attending physician: Ada Barrios Consults: 08/11/19 09:58 Consult Physician Routine Consulting Provider: Franki Durham Consult Reason/Comments: icu patient Do you want consulting provider notified?: Already Contacted Consult Physician Routine Consulting Provider: Nerissa Manuel Consult Reason/Comments: need hd Do you want consulting provider notified?: Already Contacted 08/11/19 09:59 Consult Physician Routine Consulting Provider: Asya Stern Consult Reason/Comments: HD cath Do you want consulting provider notified?: Already Contacted 08/11/19 10:00 Consult Physician Routine Consulting Provider: Hayden Mendoza Consult Reason/Comments: suicide attempt? Do you want consulting provider notified?: Yes [facility] Course: 64-year-old pleasant female was admitted for rest ulcer toxically. Patient is more awake today we're able to talk to have patient is able to provide good history to me patient is not trying to commit suicide patient was having uncontrollable headaches because of which patient took quite a bit of aspirin. Patient underwent hemodialysis yesterday patient metabolic acidosis resolved. 08/13/2019 Patient is medically stable to be discharged to psychiatric floor patient's face that she is excessively sleepy and drowsy. Patient is on multiple medication can that can do that including trazodone 300 mg, high-dose of Seroquel, morphine short-acting 30 mg 4 times a day. I'm cutting down the morphine to twice a day to avoid any withdrawals. Patient instructed will be started on nonsteroidal anti-inflammatory along with the Pepcid. Trazodone will be discontinued as well I'll leave the decision of dosing of Seroquel to psychiatric. PHYSICAL EXAMINATION: GENERAL: The patient is drowsyand oriented x3, not in any acute distress. Well developed, well nourished. HEENT: Pupils are round and equally reacting to light. EOMI. No scleral icterus. No conjunctival pallor. Normocephalic, atraumatic. No pharyngeal erythema. No thyromegaly. CARDIOVASCULAR: S1 and S2 present. No murmurs, rubs, or gallops. PULMONARY: Chest is clear to auscultation, no wheezing or crackles. ABDOMEN: Soft, nontender, nondistended, normoactive bowel sounds. No palpable organomegaly. MUSCULOSKELETAL: No joint swelling or deformity. EXTREMITIES: No cyanosis, clubbing, or pedal edema. NEUROLOGICAL: Gross neurological examination did not reveal any focal deficits. SKIN: No rashes. Assessment and Plan Plan: -Salicylate toxicity : Patient is status post hemodialysis minimal , acidosis resolved -Anion gap and non-anion gap metabolic resolved now -Neck sister drowsiness: Secondary to medications as mentioned above -Toxic encephalopathy probably from salicylate toxicity, encephalopathy resolved -Bipolar disorder with acute psychosis and kong p -Fibromyalgia -Hypertension -Obstructive sleep apnea -DVT prophylaxis with subcutaneous heparin Patient Condition at Discharge: Critical Plan - Discharge Summary Discharge Rx Participant: No New Discharge Prescriptions: New Morphine Sulfate Ir [MSIR] 30 mg PO TID tablet Meloxicam [Qmiiz Odt] 15 mg PO DAILY PRN #30 tab.rapdis PRN Reason: Pain Famotidine [Pepcid] 20 mg PO BID #30 tablet Continue Ergocalciferol (Vitamin D2) [Vitamin D2] 50,000 unit PO Q7D QUEtiapine [SEROquel] 800 mg PO HS [place] Carbonate [[place] Carbonate ER] 300 mg PO QAM Albuterol Sulfate [Ventolin HFA] 1 - 2 puff INHALATION RT-Q4H PRN PRN Reason: Shortness Of Breath Albuterol Nebulized [Ventolin Nebulized] 2.5 mg INHALATION RT-QID PRN PRN Reason: Shortness Of Breath Levothyroxine Sodium [Synthroid] 50 mcg PO DAILY Citalopram Hydrobromide [CeleXA] 40 mg PO DAILY [place] Carbonate [[place] Carbonate ER] 450 mg PO HS Changed Morphine Sulfate Ir [MSIR] 30 mg PO BID #0 Discontinued traZODone HCL 300 mg PO HS Discharge Medication List Ergocalciferol (Vitamin D2) [Vitamin D2] 50,000 unit PO Q7D 11/25/17 [History] QUEtiapine [SEROquel] 800 mg PO HS 11/25/17 [History] Albuterol Nebulized [Ventolin Nebulized] 2.5 mg INHALATION RT-QID PRN 08/11/19 [History] Albuterol Sulfate [Ventolin HFA] 1 - 2 puff INHALATION RT-Q4H PRN 08/11/19 [History] Citalopram Hydrobromide [CeleXA] 40 mg PO DAILY 08/11/19 [History] Levothyroxine Sodium [Synthroid] 50 mcg PO DAILY 08/11/19 [History] [place] Carbonate [[place] Carbonate ER] 300 mg PO QAM 08/11/19 [History] [place] Carbonate [[place] Carbonate ER] 450 mg PO HS 08/11/19 [History] Famotidine [Pepcid] 20 mg PO BID #30 tablet 08/13/19 [Rx] Meloxicam [Qmiiz Odt] 15 mg PO DAILY PRN #30 tab.rapdis 08/13/19 [Rx] Morphine Sulfate Ir [MSIR] 30 mg PO BID #0 08/13/19 [Rx] Morphine Sulfate Ir [MSIR] 30 mg PO TID tablet 08/13/19 [Rx] Follow up Appointment(s)/Referral(s): Azam Self DO [Primary Care Provider] - 1-2 days Discharge Disposition: TRANSFER TO PSYCH HOSP/UNIT
[2019-08-13] MEDS: QUEtiapine 400 MG TAB PO SCH (21:05)
[2019-08-13] MEDS: traZODone HCL 100 MG TAB PO SCH (21:06)
[2019-08-14] MEDS: LEVOTHYROXINE 50 MCG TAB PO SCH (06:35)
[2019-08-14] MEDS: HEPARIN SODIUM,PORCINE 5,000 UNIT/ML 1 ML VIAL SQ SCH ×2 (09:24→16:33)
[2019-08-14] MEDS: PANTOPRAZOLE 40 MG TABLET PO SCH (09:24)
[2019-08-14] MEDS: MORPHINE SULFATE IR 15 MG TABLET PO SCH ×2 (09:24→12:55)
[2019-08-14] MEDS: LITHIUM CARBONATE 300 MG CAP PO SCH (09:24)
[2019-08-14] MEDS ORDERED: KETOROLAC 30 MG/ML 1 ML VIAL IVP PRN (12:42)
--- NOTE | 2019-08-14 12:43 | P.PN ---
Subjective Progress Note Date: 08/14/19 Principal diagnosis: Acute salicylate toxicity. 64-year-old female patient came into the emergency department with altered mental status. The patient lives with her son. The son checked on him yesterday and the patient was was having generalized weakness and she was falling and she was somewhat altered. Based on that, the patient was brought into the hospital upon the request of her son. The son has noted that her mentation was considerably altered and the patient was having difficulty with speech and abnormal gait. She has had a long history of psychiatric disorder i ncluding suicide. She has had history of bipolar disorder maintained on lithium on outpatient basis. In the ED, initial suspicion was CVA. The patient was found to be aphasic altered, and somewhat agitated. Nevertheless, her neurologic exam was nonfocal and she was moving all 4 extremities and no seizure activity was noted on this patient. As noted, she was on multiple psychiatric medication. The levels were sent and the lithium level came back at 0.7. The patient subsequently found to have negative alcohol levels, negative acetaminophen, salicylate level was toxic and the he was released the range of 61.2. Urine drug screen was positive for opiates and tricyclic antidepressant. The urinalysis was positive for +2 ketones. The blood work showed a component of metabolic acidosis which was of a non-anion gap type with an anion gap of 12. Renal function was stable. Blood gases that was done on room air showed a pH of 7.44 with a pCO2 of 21 and pO2 of 91. The patient had a white cell count of 8.5 with a hemoglobin of 15.5. INR was at 1.7 with a PT of 17 and a PTT of 34.1. EKG was a normal sinus rhythm. Otherwise it was an unremarkable EKG with some nonspecific changes. No WI or QTc prolongation. According to the son, the patient takes aspirin. Nevertheless, he has not noted any significant suicidal intention of this patient and the timing of salicylate intake was not known to us. Computed tomography scan of the brain was somewhat limited as the patient was combative. The patient had no acute fractures of the cervical spine. The patient had no evidence of intracranial hemorrhage or mass effect or midline shift on the CAT scan of the brain. The patient will be transferred to the intensive care unit. Discussed the case with nephrology. Us B inserted and the patient will be started on hemodialysis regarding acute salicylate toxicity. Monitor outpatient medications are Seroquel and trazodone. On today's evaluation of 08/12/2019, the patient is being seen in follow-up. She is doing very well. She is active normal supplementation. Upon further q uestioning, the patient admits to take a total of 12-14 tablets of aspirin on a daily basis and she's not sure of the exact dose. I think her salicylate toxicity was rather subacute or chronic in nature. Note that she underwent one session of hemodialysis. The levels dropped significantly and there is down to 15. She is doing well. She is following commands and answering questions appropriately. No altered mentation. No suicidal ideation. Her blood work shows normal renal function. She has developed some metabolic alkalosis and this is related to the bicarb infusion. She still has a temper dialysis catheter in her right groin. No focal neurological deficit. No headache. No cough. No sputum production. No chest tightness. No wheezing. Tolerating diet. No nausea or vomiting. No hypoglycemia. Potassium is being replaced and the level is down to 3.2. Outpatient medication is to be resumed including the combination of lithium and trazodone and Seroquel. No agitation. No delirium at this point in time. On 08/13/2019 on seeing the patient for a follow-up. Patient is doing well. Earlier this when she was little bit drowsy as she woke up. She subsequently improved. She is on a combination of Seroquel and there is little that she takes overnight. She is also on lithium. She is producing adequate amount of urine output. No hypotension. No altered mentation. Her blood work shows improvement in the metabolic alkalosis as the patient was taken off the bicarb infusion. Rest of the blood work and electrodes are all within normal limits. Hemoglobin is stable at 11.3. Psychiatric evaluation the patient is a patient was advised to undergo and a in-house psych evaluation and treatment. There is a sitter at the bedside. indication for suicidal ideation. Dialysis catheter has been removed. Patient was reevaluated today on 08/14/19, patient is doing well, relatively asymptomatic. Patient is being considered for transfer to the psychiatric unit, she is medically stable from my perspective for psychiatric transfer. Objective - Vital Signs Vital signs: Vital Signs Temp 98 F 08/14/19 06:43 Pulse 61 08/14/19 06:43 Resp 12 08/14/19 08:00 BP 110/62 08/14/19 06:43 Pulse Ox 90 L 08/14/19 06:43 Intake & Output 08/13/19 08/14/19 08/14/19 18:59 06:59 18:59 Intake Total 280 1000 236 Balance 280 1000 236 Intake: IV 280 600 Sodium Chloride 0.9% 1, 280 600 000 ml @ 40 mls/hr IV . Q24H [facility] Rx#:[id number] Oral 400 236 Other: Voiding Method Bedside Commode Bedside Commode Toilet # Voids 1 2 - Exam Physical Exam: Revealed a 64-year-old female in no distress. Head: Atraumatic, normocephalic. HEENT:[Neck is supple.] [No neck masses.] [No thyromegaly.] [No JVD.] Chest: [Clear throughout, no crackles, no rhonchi, no wheezes.] Cardiac Exam: [Normal S1 and S2, no S3 gallop, no murmur.] Abdomen: [Soft, nontender, no megaly, no rebound, no guarding, normal bowel sounds.] Extremities: [No clubbing, no edema, no cyanosis.] Neurological Exam: [No focal neurologic deficit.] Psychiatric: Depressed mood, Blunted affect, normal mental status examination. - Labs CBC & Chem 7: 08/13/19 04:49 08/13/19 04:49 Labs: Microbiology - Last 24 Hours (Table) 08/11/19 08:06 Blood Culture - Preliminary Blood No Growth after 72 hours Assessment and Plan Assessment: Impression: Acute versus subacute salicylate toxicity. Mild metabolic acidosis with anion gap type, resolved. History of bipolar disorder. Fibromyalgia. Obstructive sleep apnea syndrome. Benign essential hypertension. Recommendation: Continue present supportive care measures. Resume psychiatric medications as per psychiatry on the case. Cleared for transfer to psychiatry today. We will sign off and see on when necessary basis. Time with Patient: Less than 30
--- NOTE | 2019-08-14 13:29 | P.DS ---
Providers Date of admission: 08/11/19 10:01 Attending physician: Ada Barrios Consults: 08/11/19 09:58 Consult Physician Routine Consulting Provider: Franki Durham Consult Reason/Comments: icu patient Do you want consulting provider notified?: Already Contacted Consult Physician Routine Consulting Provider: Nerissa Manuel Consult Reason/Comments: need hd Do you want consulting provider notified?: Already Contacted 08/11/19 09:59 Consult Physician Routine Consulting Provider: Asya Stern Consult Reason/Comments: HD cath Do you want consulting provider notified?: Already Contacted 08/11/19 10:00 Consult Physician Routine Consulting Provider: Hayden Mendoza Consult Reason/Comments: suicide attempt? Do you want consulting provider notified?: Yes Primary care physician[facility] Course: Patient was not transferred to psychiatric floor yesterday as she was bit drowsy her drowsiness improved after discontinue additional [place] for narcotic medications. Patient will be discharged. A psychiatric floor at home depending on the recommendation patient prefers to go home if she can. Her morphine immediate release need to be tapered down and completely discontinued as an outpatient. Patient is otherwise feeling well. PHYSICAL EXAMINATION: GENERAL: The patient is alert and oriented x3, not in any acute distress. Well developed, well nourished. HEENT: Pupils are round and equally reacting to light. EOMI. No scleral icterus. No conjunctival pallor. Normocephalic, atraumatic. No pharyngeal erythema. No thyromegaly. CARDIOVASCULAR: S1 and S2 present. No murmurs, rubs, or gallops. PULMONARY: Chest is clear to auscultation, no wheezing or crackles. ABDOMEN: Soft, nontender, nondistended, normoactive bowel sounds. No palpable organomegaly. MUSCULOSKELETAL: No joint swelling or deformity. EXTREMITIES: No cyanosis, clubbing, or pedal edema. NEUROLOGICAL: Gross neurological examination did not reveal any focal deficits. SKIN: No rashes. Please refer to my discharge summary from yesterday for further details Patient Condition at Discharge: Critical Plan - Discharge Summary Discharge Rx Participant: No New Discharge Prescriptions: New Morphine Sulfate Ir [MSIR] 30 mg PO TID tablet Meloxicam [Qmiiz Odt] 15 mg PO DAILY PRN #30 tab.rapdis PRN Reason: Pain Famotidine [Pepcid] 20 mg PO BID #30 tablet Continue Ergocalciferol (Vitamin D2) [Vitamin D2] 50,000 unit PO Q7D QUEtiapine [SEROquel] 800 mg PO HS [place] Carbonate [[place] Carbonate ER] 300 mg PO QAM Albuterol Sulfate [Ventolin HFA] 1 - 2 puff INHALATION RT-Q4H PRN PRN Reason: Shortness Of Breath Albuterol Nebulized [Ventolin Nebulized] 2.5 mg INHALATION RT-QID PRN PRN Reason: Shortness Of Breath Levothyroxine Sodium [Synthroid] 50 mcg PO DAILY Citalopram Hydrobromide [CeleXA] 40 mg PO DAILY [place] Carbonate [[place] Carbonate ER] 450 mg PO HS Changed Morphine Sulfate Ir [MSIR] 30 mg PO BID #0 Discontinued traZODone HCL 300 mg PO HS Discharge Medication List Ergocalciferol (Vitamin D2) [Vitamin D2] 50,000 unit PO Q7D 11/25/17 [History] QUEtiapine [SEROquel] 800 mg PO HS 11/25/17 [History] Albuterol Nebulized [Ventolin Nebulized] 2.5 mg INHALATION RT-QID PRN 08/11/19 [History] Albuterol Sulfate [Ventolin HFA] 1 - 2 puff INHALATION RT-Q4H PRN 08/11/19 [History] Citalopram Hydrobromide [CeleXA] 40 mg PO DAILY 08/11/19 [History] Levothyroxine Sodium [Synthroid] 50 mcg PO DAILY 08/11/19 [History] [place] Carbonate [[place] Carbonate ER] 300 mg PO QAM 08/11/19 [History] [place] Carbonate [[place] Carbonate ER] 450 mg PO HS 08/11/19 [History] Famotidine [Pepcid] 20 mg PO BID #30 tablet 08/13/19 [Rx] Meloxicam [Qmiiz Odt] 15 mg PO DAILY PRN #30 tab.rapdis 08/13/19 [Rx] Morphine Sulfate Ir [MSIR] 30 mg PO BID #0 08/13/19 [Rx] Morphine Sulfate Ir [MSIR] 30 mg PO TID tablet 08/13/19 [Rx] Follow up Appointment(s)/Referral(s): Azam Self DO [Primary Care Provider] - 1-2 days Patient Instructions/Handouts: Laceration (GEN), Bipolar Disorder (GEN), Safe Use of NSAIDs (DC) Discharge Disposition: TRANSFER TO PSYCH HOSP/UNIT
[2019-08-14 16:03] VITALS: BP 126/72; PULSE 63; RESP 16; TEMP 98
[2019-08-14] MEDS ORDERED: MORPHINE SULFATE IR 15 MG TABLET PO SCH (21:00)
== END 2019-08-14 18:35 | DRG 917 ==
LOC: EC 07:37 → SUPCPDRO 07:37 → 2SICU 10:01
PROVIDERS: ADMIT Internal Medicine; ATTEND Internal Medicine
PROC: 0HQ0XZZ Repair Scalp Skin, External Approach (ICD-10-PCS; principal; 2019-08-11)
PROC: 06HY33Z Insertion of Infusion Device into Lower Vein, Percutaneous Approach (ICD-10-PCS; 2019-08-11)
PROC: 5A1D70Z Performance of Urinary Filtration, Intermittent, Less than 6 Hours Per Day (ICD-10-PCS; 2019-08-11)
DX: T39.091A Poisoning by salicylates, accidental (unintentional), initial encounter (principal); G92 Toxic encephalopathy; E87.4 Mixed disorder of acid-base balance; F23 Brief psychotic disorder; F31.2 Bipolar disorder, current episode manic severe with psychotic features; G47.33 Obstructive sleep apnea (adult) (pediatric); M79.7 Fibromyalgia; F43.10 Post-traumatic stress disorder, unspecified; E87.6 Hypokalemia; I10 Essential (primary) hypertension; F41.9 Anxiety disorder, unspecified; F17.200 Nicotine dependence, unspecified, uncomplicated; S01.01XA Laceration without foreign body of scalp, initial encounter; E87.8 Other disorders of electrolyte and fluid balance, not elsewhere classified; F60.3 Borderline personality disorder; W19.XXXA Unspecified fall, initial encounter; R40.0 Somnolence; Z11.59 Encounter for screening for other viral diseases; Z79.899 Other long term (current) drug therapy; Z79.890 Hormone replacement therapy; Z79.82 Long term (current) use of aspirin; Z91.040 Latex allergy status; Z99.89 Dependence on other enabling machines and devices; Z80.51 Family history of malignant neoplasm of kidney; Z80.3 Family history of malignant neoplasm of breast; Z86.59 Personal history of other mental and behavioral disorders; Z86.14 Personal history of Methicillin resistant Staphylococcus aureus infection
CPT/HCPCS: 12002; 36415; 36556; 36600; 70450; 70496; 70498; 71045; 72125; 72170; 80048; 80053; 80178; 80306; 80320; 80329; 81003; 82140; 82805; 83520; 83605; 83735; 83930; 84100; 84132; 84443; 84484; 85025; 85610; 85730; 86706; 87040; 87340; 90935; 93005; 94640; 96374; 96375; 99291

== ENCOUNTER 2019-08-14 18:12 | Inpatient (IN) | payer MEDICARE ==
[2019-08-14] MEDS ORDERED: ALBUTEROL INHALER 60 PUFF/8 GM INHALER (MHU) INHALATION PRN (20:06)
[2019-08-14] MEDS ORDERED: MELOXICAM 7.5 MG TAB PO PRN (20:06)
[2019-08-14] MEDS ORDERED: ALBUTEROL NEBULIZED 2.5 MG/3 ML INHALATION PRN (20:06)
[2019-08-14] MEDS ORDERED: MAGNESIUM HYDROXIDE 2,400 MG/10 ML CUP PO PRN (20:08)
[2019-08-14] MEDS ORDERED: MAG HYDROX/AL HYDROX/SIMETH 30 ML CUP PO PRN (20:08)
[2019-08-14] MEDS: LITHIUM CARBONATE ER 450 MG TABLET.ER PO SCH (21:27)
[2019-08-14] MEDS: FAMOTIDINE 20 MG TAB PO SCH (21:27)
[2019-08-14] MEDS: QUEtiapine 400 MG TAB PO SCH (21:27)
[2019-08-14] MEDS: MORPHINE SULFATE IR 15 MG TABLET PO SCH (21:52)
[2019-08-15 05:47] VITALS: TEMP 97.9
[2019-08-15] MEDS ORDERED: LEVOTHYROXINE 50 MCG TAB PO SCH (06:30)
[2019-08-15] MEDS: ACETAMINOPHEN TAB 325 MG TAB PO PRN ×3 (06:32→17:51)
[2019-08-15] MEDS: FAMOTIDINE 20 MG TAB PO SCH ×2 (08:07→20:29)
[2019-08-15] MEDS: MORPHINE SULFATE IR 15 MG TABLET PO SCH ×2 (08:07→20:28)
[2019-08-15] MEDS ORDERED: ERGOCALCIFEROL 50,000 UNIT CAP PO SCH (09:00)
[2019-08-15] MEDS ORDERED: LITHIUM CARBONATE 300 MG PO SCH (09:00)
[2019-08-15 09:30] LABS: ALT 35 U/L (4-34); AST 57 U/L (14-36); African American GFR (CKD) >90 (>60 ml/min/1.73 sqM); Albumin 3.9 g/dL (3.5-5.0); Alkaline Phosphatase 70 U/L (38-126); Anion Gap 7 mmol/L; Blood Urea Nitrogen 12 mg/dL (7-17); Calcium 9.4 mg/dL (8.4-10.2); Carbon Dioxide 24 mmol/L (22-30); Chloride 106 mmol/L (98-107); Cholesterol 203 mg/dL (<200); Glucose 103 mg/dL (74-99); HDL Cholesterol 46 mg/dL (40-60); LDL Cholesterol,Calculated 99 mg/dL (0-99); Non-African American GFR(CKD) 83 (>60 ml/min/1.73 sqM); Potassium 4.3 mmol/L (3.5-5.1); Sodium 137 mmol/L (137-145); Total Bilirubin 0.5 mg/dL (0.2-1.3); Total Protein 6.6 g/dL (6.3-8.2); Triglycerides 289 mg/dL (<150)
[2019-08-15 09:32] LABS: Basophils % (A) 0 %; Eosinophils # (A) 0.1 k/uL (0-0.7); Eosinophils % (A) 3 %; HCT 40.6 % (34.0-46.0); HGB 12.5 gm/dL (11.4-16.0); Lymphocytes # (A) 1.7 k/uL (1.0-4.8); Lymphocytes % (A) 31 %; MCH 29.2 pg (25.0-35.0); MCHC 30.7 g/dL (31.0-37.0); MCV 94.9 fL (80.0-100.0); Mean Platelet Volume 9.6; Monocytes # (A) 0.4 k/uL (0-1.0); Monocytes % (A) 7 %; Neutrophils # (A) 3.1 k/uL (1.3-7.7); Neutrophils % (A) 57 %; Platelet Count 192 k/uL (150-450); RBC 4.28 m/uL (3.80-5.40); RDW 15.2 % (11.5-15.5); WBC 5.5 k/uL (3.8-10.6)
[2019-08-15] MEDS ORDERED: NICOTINE 21MG/24HR PATCH TRANSDERM SCH (10:45)
[2019-08-15] MEDS ORDERED: CITALOPRAM HYDROBROMIDE 20 MG TAB PO SCH (11:00)
--- NOTE | 2019-08-15 16:00 | P.CONS ---
History of Present Illness - Reason for Consult medical clearance - History of Present Illness 64-year-old female was transferred to my service to psychiatric floor after medically cleared. Patient was admitted to my service. The salicylate toxicity dysuria section of hemodialysis after which her metabolic acidosis resolved. Patient is clinically doing well patient does have history of bipolar disorder patient had episodes of agitation. Patient had a small bruise in the breast area from her agitation and injury to the soft tissue. Patient and effusions nausea vomiting abdominal pain dysuria. Review of Systems REVIEW OF SYSTEMS: CONSTITUTIONAL: No fever, no malaise, no fatigue. HEENT: No recent visual problems or hearing problems. Denied any sore throat. CARDIOVASCULAR: No chest pain, orthopnea, PND, no palpitations, no syncope. PULMONARY: No shortness of breath, no cough, no hemoptysis. GASTROINTESTINAL: No diarrhea, no nausea, no vomiting, no abdominal pain. NEUROLOGICAL: No headaches, no weakness, no numbness. HEMATOLOGICAL: Denies any bleeding or petechiae. GENITOURINARY: Denies any burning micturition, frequency, or urgency. MUSCULOSKELETAL/RHEUMATOLOGICAL: Denies any joint pain, swelling, or any muscle pain. ENDOCRINE: Denies any polyuria or polydipsia. The rest of the 14-point review of systems is negative. Past Medical History Past Medical History: Fibromyalgia, Hypertension, Sleep Apnea/CPAP/BIPAP Additional Past Medical History / Comment(s): bipolar; borderline personality; antisocial; eating disorder, PTSD, chronic aspirin user - 4-8 tablets a day - about 40 years, chronic pain History of Any Multi-Drug Resistant Organisms: MRSA Year Discovered:: 2004 MDRO Source:: unknown Past Surgical History: Back Surgery Additional Past Surgical History / Comment(s): neck surgery Past Anesthesia/Blood Transfusion Reactions: No Reported Reaction Smoking Status: Current every day smoker - Past Family History Sister(s) Family Medical History: Cancer, Renal Disease Additional Family Medical History / Comment(s): breast cancer, kidney cancer Medications and Allergies Home Medications Medication Instructions Recorded Confirmed Type Ergocalciferol (Vitamin D2) 50,000 unit PO Q7D 11/25/17 08/14/19 History [Vitamin D2] QUEtiapine [SEROquel] 800 mg PO HS 11/25/17 08/14/19 History Albuterol Nebulized [Ventolin 2.5 mg INHALATION RT-QID PRN 08/11/19 08/14/19 History Nebulized] Albuterol Sulfate [Ventolin HFA] 1 - 2 puff INHALATION RT-Q4H PRN 08/11/19 08/14/19 History Citalopram Hydrobromide [CeleXA] 40 mg PO DAILY 08/11/19 08/14/19 History Levothyroxine Sodium [Synthroid] 50 mcg PO DAILY 08/11/19 08/14/19 History [place] Carbonate [[place] 300 mg PO QAM 08/11/19 08/14/19 History Carbonate ER] [place] Carbonate [[place] 450 mg PO HS 08/11/19 08/14/19 History Carbonate ER] Famotidine [Pepcid] 20 mg PO BID #30 tablet 08/13/19 08/14/19 Rx Meloxicam [Qmiiz Odt] 15 mg PO DAILY PRN #30 tab.rapdis 08/13/19 08/14/19 Rx Morphine Sulfate Ir [MSIR] 30 mg PO BID #0 08/13/19 08/14/19 Rx Allergies Allergy/AdvReac Type Severity Reaction Status Date / Time latex Allergy Unknown Rash/Hives Verified 08/14/19 19:18 Physical Exam Vitals: Vital Signs Temp Pulse Resp BP Pulse Ox 08/15/19 13:52 97.9 F 08/15/19 05:45 97.9 F 80 18 119/59 98 08/14/19 23:27 97.2 F L 08/14/19 19:25 97.5 F L 67 16 139/69 97 PHYSICAL EXAMINATION: GENERAL: The patient is alert and oriented x3, not in any acute distress. Well d eveloped, well nourished. HEENT: Pupils are round and equally reacting to light. EOMI. No scleral icterus. No conjunctival pallor. Normocephalic, atraumatic. No pharyngeal erythema. No thyromegaly. CARDIOVASCULAR: S1 and S2 present. No murmurs, rubs, or gallops. PULMONARY: Chest is clear to auscultation, no wheezing or crackles. ABDOMEN: Soft, nontender, nondistended, normoactive bowel sounds. No palpable organomegaly. this is a small bruise under the breast area on the right side MUSCULOSKELETAL: No joint swelling or deformity. EXTREMITIES: No cyanosis, clubbing, or pedal edema. NEUROLOGICAL: Gross neurological examination did not reveal any focal deficits. SKIN: No rashes. Results CBC & Chem 7: 08/15/19 08:46 08/15/19 08:46 Labs: Abnormal Lab Results - Last 24 Hours (Table) 08/15/19 08/15/19 Range/Units 08:46 08:46 MCHC 30.7 L (31.0-37.0) g/dL Glucose 103 H (74-99) mg/dL AST 57 H (14-36) U/L ALT 35 H (4-34) U/L Triglycerides 289 H (<150) mg/dL Cholesterol 203 H (<200) mg/dL TSH 7.090 H (0.465-4.680) mIU/L Assessment and Plan Plan: -bipolar disorder: Patient is presently depressed management as per primary service -Hypertension -Sleep apnea -Chronic back pain patient is complaining of headache patient was started on the Mobic along with GI prophylaxis. -Recent salicylate toxicity and counseled her at length regarding use of aspirin for pain patient has a bruise under the breast because of excessive aspirin use as well -Nicotine use, counseling was provided -narcotic abuse: Counseling was provided and these need to be weaned off and taper down, patient is only on twice a day of MSIR is supposed to 4 times a day down even more and eventually completely discontinue patient was having falls because of these multiple medications that can cause generalized weakness drowsiness and falls.
[2019-08-15 18:54] LABS: Hemoglobin A1C 6.4 % (4.0-6.0)
[2019-08-15] MEDS: QUEtiapine 400 MG TAB PO SCH (20:29)
[2019-08-15] MEDS: LITHIUM CARBONATE ER 450 MG TABLET.ER PO SCH (20:29)
[2019-08-16 02:37] LABS: Glucose,Whole Blood 156 mg/dL (75-99)
--- NOTE | 2019-08-16 03:13 | CT ---
EXAMINATION TYPE: CT brain wo con for TPA DATE OF EXAM: 08/16/2019 COMPARISON: 08/11/2019 HISTORY: Code Stroke Weakness CT DLP: 1092.20 mGycm Automated exposure control for dose reduction was used. Ventricles have normal size. There is some lopez-white matter hypodensity in both occipital lobes. Thi s is more noticeable on the left side. There is also some hypodensity in the most of the left cerebel lar hemisphere. There is no midline shift. There is no sign of intracranial hemorrhage. Calvarium is intact. The skull base is intact. Temporal bones are intact. There is no evidence of posterior fossa mass. IMPRESSION: Exam shows evidence of acute or subacute infarct involving the left cerebral hemisphere and both post erior occipital lobes. No hemorrhage. Abnormalities appear new compared to recent exam.
[2019-08-16 05:17] VITALS: RESP 16
[2019-08-16 05:19] VITALS: BP 212/91; PULSE 89
[2019-08-16] MEDS ORDERED: LITHIUM CARBONATE 300 MG CAP PO SCH (09:00)
--- NOTE | 2019-08-17 09:14 | P.HP ---
Psychiatric H&P - . H&P Date: 08/15/19 History & Physical: IDENTIFYING DATA: She is a 64-year-old Palauan female transferred from the ICU and voluntarily with a history of depression and chronic excessive use of aspirin. HISTORY OF PRESENT ILLNESS: She presented to the ER for evaluation of a fall. During the ER evaluation the physician noted and I am grams and encourage alcohol salicylate level. She was admitted to ICU with treatment of emergency dialysis of aspirin toxicity. The student counselor consulted psychiatry to evaluate whether the aspirin toxicity was a result of a suicide attempt. She denied that she had attempted suicide but admitted taking "several aspirins" every day. She complained chronic headache that was only relief after taking multiple tablets of aspirin. She admitted to feeling depressed and having thoughts of suicide. She described many symptoms of depression including impaired sleep, fatigue, anhedonia, impaired concentration and memory, guilt over the of her son and recurrent thoughts of suicide. She alleged that she has been persistently depressed since her son's 4 years ago. The depression fluctuates in intensity and she denied experiencing any time where she feels normal, happy or content. She talked about having worsening depression every year in July or August. These months coinciding to her son's relapse and eventual in December. She also talked about the stress of an unhappy marriage. Although she and her live together they sleep separately. She does not feel that he understands her distress about fights her with emotional support. In addition to the chronic headaches she describes episodes of "shaking" that usually result in a fall. She has scars on her forehead and above her right eye where she felt the bathroom and struck her head on the toilet bowl. She feels anxious but denied experiencing periods of increased anxiety consistent with panic attack. He ruminates over the of her son but did not describe clear obsessions or compulsions. She denied use of alcohol or ot her drugs to get high, help her sleep or change her mood. She denied psychotic symptoms such as auditory, visual or olfactory hallucinations, ideas reference, thought insertion, thought broadcasting, controlled. PAST PSYCHIATRIC HISTORY: She first received mental health services and later 20s or early 30s. She is enrolled with [facility] where she described lithium, Seroquel and Celexa. This is her third psychiatric hospitalization. We discharged her in October 2016 with diagnoses of bipolar 1 disorder current episode depressed, cocaine use disorder and mild hypothyroidism. She denied a history of suicide attempts. Although she had been given a diagnosis of bipolar illness I was unable to identify a sustained period of elevated mood or irritability. She talked about brief episodes the past lasting no more than a day where she felt good almost too cheerful or high. PAST MEDICAL HISTORY: Fibromyalgia, hypertension, sleep apnea ALLERGIES: NO KNOWN DRUG ALLERGIES SUBSTANCE USE HISTORY: She denied use of drugs or alcohol during our interview. The admission history from 2017 notes that she has used cocaine off and on for much of her life. FAMILY PSYCHIATRIC/SUBSTANCE USE HISTORY: Her son and history of opiate use disorder and from an intentional overdose of fentanyl. LEGAL HISTORY: He denied SOCIAL HISTORY: She is born and raised in [place]. Her parents when she was 7 years old. After the divorce her mother moved to [place] and her father abandoned the family. She was subsequently raised by her grandparents. She moved to [place] at the age of 15 to live with her mother who had remarried. She completed high school. She 20 to her current . They've been 40 years. She had 3 children and has 5 grandchildren. In 2014 she had her moved to [place] when her son was attending college. 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 She's been on disability since age of 43. She alleged as a child she was excessive buspirone maternal grandfather. MENTAL STATUS EXAM: She presented as a short moderately obese female who was pleasant on approach. She walked with the aid of a walker. She made eye contact and appeared to attend to the interview. Other than a scar on her forehead and above her right eye she had no prominent physical abnormalities. She had a sad facial expression. She is alert and oriented to person, place and time. She had psychomotor retardation but no abnormal involuntary movements. Her speech was spontaneous with decreased rate and rhythm. His affect was depressed and not reactive. She denied current suicidal ideation or wishes. She denied homicidal ideation. She expresses feelings of hopelessness, helplessness and worthlessness. She did not express ideas reference, paranoid ideation or delusions. Her thinking was abstract and associations were coherent and logical. She had word finding difficulties during the interview. She denied hallucinations and did not appear to be responding to internal stimuli. Global impression of intellect is average. She is aware of illness and need for treatment. STRENGTHS: Stable housing, stable income, engagement with mental health services WEAKNESSES: Chronic and persistent mental illness, medical problems IMPRESSION: She is a 64-year-old [place]au[place] female who described a history of a persistent depression. [facility] a fall was found to have aspirin toxicity. She denied that she had taken excessive amounts of aspirin suicide attempt but described chronic high-dose use of aspirin for complaints of chronic headache. She is very somatically focused and his multiple physical concerns many for which have no clear medical explanation. She most likely has a persistent depressive disorder. She should be treated inpatient basis with combination psychopharmacology and multimodal therapy. PRINCIPLE DIAGNOSIS: Persistent depressive disorder, major depressive disorder recurrent, unresolved grief RECOMMENDATION: Admitted to the psychiatric unit. Safety precautions. Consult medicine for initial physical exam and medical history. 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 Continue outpatient psychotropic medications including lithium 300 mg in morning and 4 and 50 mg at bedtime, Seroquel 400 mg at bedtime and Celexa 40 mg daily. Encourage participation in therapeutic groups and activities. Evaluate clinical status response to treatment daily basis. Allergies Allergy/AdvReac Type Severity Reaction Status Date / Time latex Allergy Unknown Rash/Hives Verified 08/14/19 19:18 Vital Signs Temp 97.9 F 08/15/19 05:45 Pulse 80 08/15/19 05:45 Resp 18 08/15/19 05:45 BP 119/59 08/15/19 05:45 Pulse Ox 98 08/15/19 05:45 Intake & Output 08/14/19 08/15/19 08/15/19 18:59 06:59 18:59 Weight 86.2 kg Laboratory Last Values WBC 5.5 k/uL (3.8-10.6) 08/15/19 08:46 RBC 4.28 m/uL (3.80-5.40) 08/15/19 08:46 Hgb 12.5 gm/dL (11.4-16.0) 08/15/19 08:46 Hct 40.6 % (34.0-46.0) 08/15/19 08:46 MCV 94.9 fL (80.0-100.0) 08/15/19 08:46 MCH 29.2 pg (25.0-35.0) 08/15/19 08:46 MCHC 30.7 g/dL (31.0-37.0) L 08/15/19 08:46 RDW 15.2 % (11.5-15.5) 08/15/19 08:46 Plt Count 192 k/uL (150-450) 08/15/19 08:46 Neutrophils % 57 % 08/15/19 08:46 Lymphocytes % 31 % 08/15/19 08:46 Monocytes % 7 % 08/15/19 08:46 Eosinophils % 3 % 08/15/19 08:46 Basophils % 0 % 08/15/19 08:46 Neutrophils # 3.1 k/uL (1.3-7.7) 08/15/19 08:46 Lymphocytes # 1.7 k/uL (1.0-4.8) 08/15/19 08:46 Monocytes # 0.4 k/uL (0-1.0) 08/15/19 08:46 Eosinophils # 0.1 k/uL (0-0.7) 08/15/19 08:46 Basophils # 0.0 k/uL (0-0.2) 08/15/19 08:46 Sodium 137 mmol/L (137-145) 08/15/19 08:46 Potassium 4.3 mmol/L (3.5-5.1) 08/15/19 08:46 Chloride 106 mmol/L (98-107) 08/15/19 08:46 Carbon Dioxide 24 mmol/L (22-30) 08/15/19 08:46 Anion Gap 7 mmol/L 08/15/19 08:46 BUN 12 mg/dL (7-17) 08/15/19 08:46 Creatinine 0.77 mg/dL (0.52-1.04) 08/15/19 08:46 Est GFR (CKD-EPI)AfAm >90 (>60 ml/min/1.73 sqM) 08/15/19 08:46 Est GFR (CKD-EPI)NonAf 83 (>60 ml/min/1.73 sqM) 08/15/19 08:46 Glucose 103 mg/dL (74-99) H 08/15/19 08:46 Calcium 9.4 mg/dL (8.4-10.2) 08/15/19 08:46 Total Bilirubin 0.5 mg/dL (0.2-1.3) 08/15/19 08:46 AST 57 U/L (14-36) H 08/15/19 08:46 ALT 35 U/L (4-34) H 08/15/19 08:46 Alkaline Phosphatase 70 U/L (38-126) 08/15/19 08:46 Total Protein 6.6 g/dL (6.3-8.2) 08/15/19 08:46 Albumin 3.9 g/dL (3.5-5.0) 08/15/19 08:46 Triglycerides 289 mg/dL (<150) H 08/15/19 08:46 Cholesterol 203 mg/dL (<200) H 08/15/19 08:46 LDL Cholesterol, Calc 99 mg/dL (0-99) 08/15/19 08:46 HDL Cholesterol 46 mg/dL (40-60) 08/15/19 08:46 TSH 7.090 mIU/L (0.465-4.680) H 08/15/19 08:46 08/15/19 10:24
--- NOTE | 2019-08-22 08:19 | P.DS ---
Providers Date of admission: 08/14/19 18:53 Attending physician: Anand Portillo MD Consults: 08/14/19 20:08 Consult Physician Routine Consulting Provider: Pat Caban Consult Reason/Comments: H&P and medical Do you want consulting provider notified?: Already Contacted Primary care physician: Azam Self - Discharge Diagnosis(es) (1) CVA (cerebral vascular accident) Status: Acute Priority: High (2) Depression Status: Chronic Priority: Medium Hospital Course: She is a 64-year-old [place] female transferred from the ICU and voluntarily with a history of depression and chronic excessive use of aspirin. She presented to the ER for evaluation of a fall. During the ER evaluation the physician noted and I am grams and encourage alcohol salicylate level. She was admitted to ICU with treatment of emergency dialysis of aspirin toxicity. The note specialist consulted psychiatry to evaluate whether the aspirin toxicity was a result of a suicide attempt. She denied that she had attempted suicide but admitted taking "several aspirins" every day. She complained chronic headache that was only relief after taking multiple tablets of aspirin. She admitted to feeling depressed and having thoughts of suicide. She described many symptoms of depression including impaired sleep, fatigue, anhedonia, impaired concentration and memory, guilt over the of her son and recurrent thoughts of suicide. She alleged that she has been persistently depressed since her son's 4 years ago. The depression fluctuates in intensity and she denied experiencing any time where she feels normal, happy or content. She talked about having worsening depression every year in July or August. These months coinciding to her son's relapse and eventual in December. She also talked about the stress of an unhappy marriage. Although she and her live together they sleep separately. She does not feel that he understands her distress about fights her with emotional support. In addition to the chronic headaches she describes episodes of "shaking" that usually result in a fall. She has scars on her forehead and above her right eye where she felt the bathroom and struck her head on the toilet bowl. She feels anxious but denied experiencing periods of increased anxiety consistent with panic attack. He ruminates over the of her son but did not describe clear obsessions or compulsions. She denied use of alcohol or other drugs to get high, help her sleep or change her mood. She denied psychotic symptoms such as auditory, visual or olfactory hallucinations, ideas reference, thought insertion, thought broadcasting, controlled. She first received mental health services and later 20s or early 30s. She is enrolled with [facility] where she described lithium, Seroquel and Celexa. This is her third psychiatric hospitalization. We discharged her in October 2016 with diagnoses of bipolar 1 disorder current episode depressed, cocaine use disorder and mild hypothyroidism. She denied a history of suicide attempts. Although she had been given a diagnosis of bipolar illness I was unable to identify a sustained period of elevated mood or irritability. She talked about brief episodes the past lasting no more than a day where she felt good almost too cheerful or high. We admitted her to the psychiatric unit under care of this display card writer. We rovided a comprehensive biopsychosocial assessment. The medical insurance collector completed initial physical exam medical history. He diagnosis hypertension, sleep apnea, chronic back pain, recent salicylate toxicity, and nicotine use and narcotic abuse. We continue her outpatient medications including lithium 300 mg in morning and 450 mg at bedtime, Seroquel 400 mg at bedtime and Celexa 40 mg daily. At approximately 2:15 on 08/16/2019 nursing observed her sitting on the side of her bed diaphoretic. Her speech was slurred. A-team was initiated at 2022 due to lethargy, hypertension and confusion. A code stroke called at 2:30. CT of the brain showed evidence of acute or subacute infarct in the left cerebral hemisphere and both posterior occipital lobes. We transferred to medical school for for continued management. Patient Condition at Discharge: Serious Plan - Discharge Summary New Discharge Prescriptions: No Action Ergocalciferol (Vitamin D2) [Vitamin D2] 50,000 unit PO Q7D QUEtiapine [SEROquel] 800 mg PO HS [place] Carbonate [[place] Carbonate ER] 300 mg PO QAM Albuterol Sulfate [Ventolin HFA] 1 - 2 puff INHALATION RT-Q4H PRN PRN Reason: Shortness Of Breath Albuterol Nebulized [Ventolin Nebulized] 2.5 mg INHALATION RT-QID PRN PRN Reason: Shortness Of Breath Levothyroxine Sodium [Synthroid] 50 mcg PO DAILY Citalopram Hydrobromide [CeleXA] 40 mg PO DAILY [place] Carbonate [[place] Carbonate ER] 450 mg PO HS Morphine Sulfate Ir [MSIR] 30 mg PO BID #0 Meloxicam [Qmiiz Odt] 15 mg PO DAILY PRN #30 tab.rapdis PRN Reason: Pain Famotidine [Pepcid] 20 mg PO BID #30 tablet Discharge Medication List Ergocalciferol (Vitamin D2) [Vitamin D2] 50,000 unit PO Q7D 11/25/17 [History] QUEtiapine [SEROquel] 800 mg PO HS 11/25/17 [History] Albuterol Nebulized [Ventolin Nebulized] 2.5 mg INHALATION RT-QID PRN 08/11/19 [History] Albuterol Sulfate [Ventolin HFA] 1 - 2 puff INHALATION RT-Q4H PRN 08/11/19 [History] Citalopram Hydrobromide [CeleXA] 40 mg PO DAILY 08/11/19 [History] Levothyroxine Sodium [Synthroid] 50 mcg PO DAILY 08/11/19 [History] [place] Carbonate [[place] Carbonate ER] 300 mg PO QAM 08/11/19 [History] [place] Carbonate [[place] Carbonate ER] 450 mg PO HS 08/11/19 [History] Famotidine [Pepcid] 20 mg PO BID #30 tablet 08/13/19 [Rx] Meloxicam [Qmiiz Odt] 15 mg PO DAILY PRN #30 tab.rapdis 08/13/19 [Rx] Morphine Sulfate Ir [MSIR] 30 mg PO BID #0 08/13/19 [Rx] Activity/Diet/Wound Care/Special Instructions: Activity and diet as tolerated. Avoid the use of street drugs and alcohol. Take all medications as prescribed. When you are in need of refills on your medications please contact your medical provider and/or outpatient psychiatrist to have this done. Please go to scheduled outpatient appointment for aftercare treatment. If symptoms return or become worse, call the crisis line at and/or go to the nearest emergency room for evaluation. Discharge Disposition: TRANSFER TO SHORT TERM HOSP
== END 2019-08-16 03:01 | disposition short-term general hospital (02) | DRG 885 ==
LOC: 3MHU 18:53
PROVIDERS: ADMIT Psychiatry & Neurology Psychiatry; ATTEND Psychiatry & Neurology Psychiatry
DX: F31.9 Bipolar disorder, unspecified (principal); I63.9 Cerebral infarction, unspecified; E87.2 Acidosis; R45.851 Suicidal ideations; Z71.6 Tobacco abuse counseling; F17.210 Nicotine dependence, cigarettes, uncomplicated; E03.9 Hypothyroidism, unspecified; F43.29 Adjustment disorder with other symptoms; F43.10 Post-traumatic stress disorder, unspecified; F60.3 Borderline personality disorder; I10 Essential (primary) hypertension; M79.7 Fibromyalgia; T39.011A Poisoning by aspirin, accidental (unintentional), initial encounter; Z79.82 Long term (current) use of aspirin; Z79.890 Hormone replacement therapy; Z79.899 Other long term (current) drug therapy; Z80.3 Family history of malignant neoplasm of breast; Z80.51 Family history of malignant neoplasm of kidney; Z91.5 Personal history of self-harm; Z86.59 Personal history of other mental and behavioral disorders; Z91.81 History of falling; G47.30 Sleep apnea, unspecified; Z99.89 Dependence on other enabling machines and devices; Z91.040 Latex allergy status; F50.9 Eating disorder, unspecified; Z68.34 Body mass index [BMI] 34.0-34.9, adult; G89.29 Other chronic pain; M54.9 Dorsalgia, unspecified; R51 Headache; F11.10 Opioid abuse, uncomplicated; S20.00XA Contusion of breast, unspecified breast, initial encounter; R45.1 Restlessness and agitation
CPT/HCPCS: 70450; 80053; 80061; 83036; 84439; 84443; 85025

== ENCOUNTER 2019-08-16 03:19 | Inpatient (IN) | payer MEDICARE ==
[2019-08-16] MEDS: LORazepam 2 MG/ML INJ IV PRN ×2 (03:30→14:51)
[2019-08-16] MEDS ORDERED: hydrALAZINE HCL 20 MG/ML 1 ML VIAL IVP STA (04:52)
[2019-08-16 05:24] LABS: Basophils % (A) 0 %; Eosinophils # (A) 0.1 k/uL (0-0.7); Eosinophils % (A) 1 %; HCT 44.4 % (34.0-46.0); HGB 13.9 gm/dL (11.4-16.0); Lymphocytes # (A) 1.3 k/uL (1.0-4.8); Lymphocytes % (A) 15 %; MCH 29.4 pg (25.0-35.0); MCHC 31.2 g/dL (31.0-37.0); MCV 94.3 fL (80.0-100.0); Mean Platelet Volume 9.5; Monocytes # (A) 0.4 k/uL (0-1.0); Monocytes % (A) 4 %; Neutrophils # (A) 6.5 k/uL (1.3-7.7); Neutrophils % (A) 77 %; Platelet Count 191 k/uL (150-450); RBC 4.71 m/uL (3.80-5.40); RDW 15.1 % (11.5-15.5); WBC 8.4 k/uL (3.8-10.6)
[2019-08-16 05:31] LABS: INR 0.9 (<1.2); Partial Thromboplastin Time 25.2 sec (22.0-30.0); Prothrombin Time 9.6 sec (9.0-12.0)
[2019-08-16] MEDS: SODIUM CHLORIDE 0.9% 1,000 ML IV SCH ×2 (05:31→22:32)
[2019-08-16 05:46] LABS: ALT 53 U/L (4-34); AST 86 U/L (14-36); African American GFR (CKD) >90 (>60 ml/min/1.73 sqM); Albumin 4.5 g/dL (3.5-5.0); Alkaline Phosphatase 98 U/L (38-126); Anion Gap 11 mmol/L; Blood Urea Nitrogen 13 mg/dL (7-17); Calcium 9.7 mg/dL (8.4-10.2); Carbon Dioxide 21 mmol/L (22-30); Chloride 105 mmol/L (98-107); Glucose 190 mg/dL (74-99); Non-African American GFR(CKD) >90 (>60 ml/min/1.73 sqM); Potassium 4.2 mmol/L (3.5-5.1); Sodium 137 mmol/L (137-145); Total Bilirubin 0.5 mg/dL (0.2-1.3); Total Protein 7.5 g/dL (6.3-8.2)
[2019-08-16] MEDS ORDERED: LORazepam 2 MG/ML INJ ONE (06:15)
[2019-08-16] MEDS ORDERED: LORazepam 2 MG/ML INJ IV STA (06:21)
[2019-08-16] MEDS ORDERED: ALBUTEROL NEBULIZED 2.5 MG/3 ML INHALATION PRN (14:52)
--- NOTE | 2019-08-16 15:03 | P.HPIM ---
History of Present Illness patient is a 64-year-old female known to mefrom her previous auscultation when she was admitted for salicylate toxicity at the time aspirin was discontinued patient has a significant psychiatric issues was admitted to psychiatric floor. Patient had an accidental overdose at the time. Last night in on psychiatric floor patient had decreased mentation along with slurred speech codewhich showed acute or subacute infarct infarcts involving the left cerebral hemispheres and both posterior occipital lobes without any hemorrhage.patient was subsequently transferred to medical floor stepdown unit. Patient apparently had around 3 s eizures after that I'm unable to get any history from the patient will be unable to do any neurological exam because of her clinical condition andit appears to be postictal nonverbal Review of Systems unable to obtain due to her clinical condition Past Medical History Past Medical History: Fibromyalgia, Hypertension, Sleep Apnea/CPAP/BIPAP Additional Past Medical History / Comment(s): bipolar; borderline personality; antisocial; eating disorder, PTSD, chronic aspirin user - 4-8 tablets a day - about 40 years, chronic pain History of Any Multi-Drug Resistant Organisms: MRSA Date of last positivie culture/infection: 2004 MDRO Source:: unknown Past Surgical History: Back Surgery Additional Past Surgical History / Comment(s): neck surgery Past Anesthesia/Blood Transfusion Reactions: No Reported Reaction Smoking Status: Current every day smoker - Past Family History Sister(s) Family Medical History: Cancer, Renal Disease Additional Family Medical History / Comment(s): breast cancer, kidney cancer Medications and Allergies Home Medications Medication Instructions Recorded Confirmed Type Ergocalciferol (Vitamin D2) 50,000 unit PO Q7D 11/25/17 08/16/19 History [Vitamin D2] QUEtiapine [SEROquel] 800 mg PO HS 11/25/17 08/16/19 History Albuterol Nebulized [Ventolin 2.5 mg INHALATION RT-QID PRN 08/11/19 08/16/19 History Nebulized] Albuterol Sulfate [Ventolin HFA] 1 - 2 puff INHALATION RT-Q4H PRN 08/11/19 08/16/19 History Citalopram Hydrobromide [CeleXA] 40 mg PO DAILY 08/11/19 08/16/19 History Levothyroxine Sodium [Synthroid] 50 mcg PO DAILY 08/11/19 08/16/19 History [place] Carbonate [[place] 300 mg PO QAM 08/11/19 08/16/19 History Carbonate ER] [place] Carbonate [[place] 450 mg PO HS 08/11/19 08/16/19 History Carbonate ER] Famotidine [Pepcid] 20 mg PO BID #30 tablet 08/13/19 08/16/19 Rx Meloxicam [Qmiiz Odt] 15 mg PO DAILY PRN #30 tab.rapdis 08/13/19 08/16/19 Rx Morphine Sulfate Ir [MSIR] 30 mg PO BID #0 08/13/19 08/16/19 Rx Allergies Allergy/AdvReac Type Severity Reaction Status Date / Time latex Allergy Unknown Rash/Hives Verified 08/16/19 06:49 Physical Exam Vitals: Vital Signs Temp Pulse Pulse Resp BP BP Pulse Ox 08/16/19 12:00 99.4 F 82 24 175/84 96 08/16/19 10:30 82 22 154/99 97 08/16/19 09:00 74 22 160/98 97 08/16/19 08:00 98.4 F 93 22 170/82 97 08/16/19 07:00 78 12 114/79 99 08/16/19 06:01 97 08/16/19 06:00 62 14 175/73 97 08/16/19 05:00 67 17 185/108 97 08/16/19 04:00 97.2 F L 67 28 H 192/86 96 08/16/19 03:30 59 L 27 H 174/103 98 Intake and Output 08/15/19 08/16/19 08/16/19 22:59 06:59 14:59 Intake Total 100 400 Output Total 0 0 Balance 100 400 Intake: IV 100 400 Sodium Chloride 0.9% 1, 100 400 000 ml @ 50 mls/hr IV . Q20H [facility] Rx#:[id number] Output: Urine 0 0 Other: Weight 86 kg PHYSICAL EXAMINATION: GENERAL: patient is drowsy appears to be mostly postictal unable to obtain any kind of history from the patient HEENT: Pupils are round and equally reacting to light. EOMI. No scleral icterus. No conjunctival pallor. Normocephalic, atraumatic. No pharyngeal erythema. No thyromegaly. CARDIOVASCULAR: S1 and S2 present. No murmurs, rubs, or gallops. PULMONARY: Chest is clear to auscultation, no wheezing or crackles. ABDOMEN: Soft, nontender, nondistended, normoactive bowel sounds. No palpable organomegaly. MUSCULOSKELETAL: No joint swelling or deformity. EXTREMITIES: No cyanosis, clubbing, or pedal edema. NEUROLOGICAL:unable to assess SKIN: No rashes. Results CBC & Chem 7: 08/16/19 05:01 08/16/19 05:01 Labs: Abnormal Lab Results - Last 24 Hours (Table) 08/16/19 Range/Units 05:01 Carbon Dioxide 21 L (22-30) mmol/L Glucose 190 H (74-99) mg/dL AST 86 H (14-36) U/L ALT 53 H (4-34) U/L Assessment and Plan Plan: -possible cerebrovascular accident ischemic in nature involvingcerebral hemisphere . Patient may need an MRI early the addition to neurology will obtain a CT angios the head and neck. Patient had seizures because of which I'll obtain EEG and the seizures problems secondary to massive stroke and encephalopathy. Patient was started on aspirin will obtain LDL and echocardiogram. -Possible seizures: Patient will be continued on Ativan as needed patient appears to be postictal at this time. -hypertension -obstructive sleep apnea -Bipolar disorder -DVT prophylaxis subcutaneous heparin GI prophylaxis with Pepcid
--- NOTE | 2019-08-16 17:20 | CT ---
EXAMINATION TYPE: CT angio head neck DATE OF EXAM: 08/16/2019 COMPARISON: 08/11/2019 HISTORY: cva, ams CT DLP: 454.4 mGycm Automated exposure control for dose reduction was used. CONTRAST: Performed with IV Contrast, patient injected with 65cc mL of Isovue 370. there are 3-D post processed images. There is normal branching pattern of the great vessels on the aortic arch. There is bilateral arteria l flow in the subclavian arteries. There is bilateral arterial flow in the vertebral arteries which a re fairly symmetric. There is arterial flow in the vertebrobasilar artery system. There is arterial flow in the common internal and external carotid arteries bilaterally. There is wid e patency of the carotid artery bifurcations. There is no significant plaque formation. There is no e vidence of carotid or vertebral artery aneurysm or dissection. There is arterial flow in the anterior middle and posterior cerebral arteries. There is normal contra st opacification of the venous sinuses. There is no evidence of intracranial arterial stenosis. There is flow in the left posterior communicating artery. I see no mass effect. There is no evidence of in tracranial aneurysm or neovascularity. There is hypodensity in the left occipital lobe lopez and white matter. This measures 4 x 3 cm. There is also poorly marginated 3 cm area of hypodensity in the left cerebellar hemisphere. There is no mas s effect. IMPRESSION: No angiographic abnormality demonstrated. Hypodensity left occipital lobe and left cerebellar hemisphere consistent with subacute infarcts unch anged compared to exam today at 3:00 AM.
[2019-08-16] MEDS: ENOXAPARIN 40 MG/0.4 ML SYRINGE SQ SCH (17:55)
[2019-08-16] MEDS ORDERED: QUEtiapine 400 MG TAB PO SCH (21:00)
[2019-08-16] MEDS ORDERED: FAMOTIDINE 20 MG TAB PO SCH (21:00)
[2019-08-16] MEDS ORDERED: LITHIUM CARBONATE ER 450 MG TABLET.ER PO SCH (21:00)
[2019-08-16] MEDS: FAMOTIDINE 20 MG TAB PO SCH (21:03)
[2019-08-16] MEDS: levETIRAcetam IV 500 MG in SODIUM CHLORIDE 0.9% 100 ML IVPB SCH (22:32)
--- NOTE | 2019-08-17 03:45 | CONS ---
CONSULTATION DATE OF THIS DICTATION: 08/16/2019. HISTORY OF PRESENT ILLNESS: Thank you for allowing me to evaluate Nataly Vick who is a 64-year-old female who presented to [facility] as a transfer from the inpatient psych unit for evaluation of altered mental status and dysarthria. According to nursing staff, the patient had significantly elevated blood pressure in the 220 systolic range and reportedly had 3 witnessed seizures. In reviewing the medical record, there is no mention of previous history of seizures. The patient is currently unable to provide history; therefore, the majority of patient's history is obtained from nursing staff and the medical record. Upon arrival to the emergency room, the patient had a CT scan of the brain completed, which demonstrated a left cerebellar and bilateral occipital hypodensities suggesting evidence of acute ischemia. The patient was evaluated by [facility] and not felt to be a tPA or intervention candidate. The patient initially presented to [facility] on 08/11/2019 with mental status changes and was diagnosed with salicylate toxicity after lab work demonstrated a markedly elevated level on presentation of 61.2. After the patient was medically stabilized, she was transferred to the inpatient psychiatric unit until being transferred back today. The hypodensities seen on CT described above were not present on the patient's initial CT of 08/11/2019. ALLERGIES: LATEX. PRESENTING MEDICATIONS: Seroquel 100 mg at bedtime, morphine 30 mg b.i.d., Mobic, lithium, Synthroid, Pepcid, vitamin D, calcium, and Ventolin. PAST MEDICAL HISTORY: Bipolar disorder, hypertension, hypothyroidism, irritable bowel syndrome, fibromyalgia, obstructive sleep apnea, borderline personality disorder and PTSD. PAST SURGICAL HISTORY: Lumbar laminectomy. SOCIAL HISTORY: Unobtainable. FAMILY HISTORY: Unobtainable. REVIEW OF SYSTEMS: Unobtainable. PHYSICAL EXAMINATION: Upon arrival to the patient's room in the ICU, she was lying in bed, kept her eyes closed through the course of the evaluation. The patient would not follow commands, make eye contact, track the examiner with her eyes or respond to questions. The patient appears of stated age and would occasionally say "help me". VITAL SIGNS: Blood pressure is currently 139/87 with pulse of 93, respiratory rate 25, and temperature is 99.4. SKIN AND EXTREMITIES: The patient has a tattoo over the left wrist. HEAD AND NECK: No signs of trauma. Neck is supple without meningeal signs. Arteries are nontender and without bruits. HEART: Regular rate and rhythm. HIGHER CORTICAL FUNCTION: MENTAL STATUS: Patient was lethargic. She would not open her eyes and when the lids were lifted, would not make eye contact with the examiner or track the examiner with her eyes. She would not follow commands or respond to questions. Further cognitive evaluation could not be performed. CRANIAL NERVES II THROUGH XII: Pupils are equal and reactive to light symmetrically. No afferent pupillary defect. There was no consistent blink to threat. III, IV, : Oculocephalic reflexes intact. No ptosis or nystagmus is noted. V: Corneal reflexes and nasal tickle are intact. VII: No clear facial asymmetry. VIII: Could not be assessed. IX, X: Gag reflex was present. XI: The patient would not shrug her shoulders. XII: Patient would not protrude tongue to command. MOTOR EXAMINATION: The patient was spontaneously moving in bed and moved the upper and lower extremities in a symmetric fashion. There was normal bulk and tone noted in all major muscle groups with no involuntary movements noted. No seizure activity was witnessed. With noxious stimulation, the patient did withdraw all extremities symmetrically. SENSORY: Patient withdrew all extremities symmetrically to noxious stimulation. REFLEXES: Patient is areflexic throughout. Plantar responses flexor bilaterally. Hernandez's is absent. COORDINATION/GAIT AND STATION: Could not be tested. DIAGNOSTIC TESTING: Patient had a CTA of the head/neck vessels which was unrevealing. LAB WORK: Lab work demonstrates a white blood count of 8.4 with hemoglobin of 13.9, platelet count 191. Sodium 137, potassium 4.2, BUN 13 with a creatinine of 0.6. Random glucose 190. INR 0.9. Calcium 9.7. ALT 53, AST 86. IMPRESSION: 1. Left cerebellar and bilateral occipital hypodensities on CT, which may represent acute infarct versus PRES (posterior reversible encephalopathy syndrome) related to hypertensive encephalopathy. 2. New onset seizure secondary to #1/uncontrolled hypertension. 3. Recent hospitalization for salicylate toxicity, patient presented on 08/11/2019 and after being medically stabilized, was transferred to the inpatient psychiatric unit. 4. Bipolar disorder, borderline personality disorder and posttraumatic stress disorder with history of previous mental health unit admissions. 5. Medical problems including hypertension, hypothyroidism, irritable bowel syndrome, fibromyalgia, and obstructive sleep apnea. RECOMMENDATION: 1. Case was discussed with nursing staff. 2. Urgent MRI of the brain with and without contrast, if the hypodensities reflect acute infarcts, the patient will need to be transferred to a facility with neurosurgical backup as the left cerebellar lesion is large and edema in the posterior fossa can provoke fourth ventricle/brainstem compression. 3. We will check the EEG completed earlier today and initiate Keppra. 4. CTA of the head/neck vessels was unrevealing. 5. The patient has been placed under seizure precautions and Ativan will be available on a p.r.n. basis for breakthrough episodes. 6. Will follow with you. Critical care time spent in evaluation 65 minutes. BLAKE / HELION: [id number] / MTDD
[2019-08-17 04:39] LABS: Lithium 0.3 mmol/L
[2019-08-17 05:49] LABS: African American GFR (CKD) >90 (>60 ml/min/1.73 sqM); Anion Gap 9 mmol/L; Blood Urea Nitrogen 9 mg/dL (7-17); Calcium 9.2 mg/dL (8.4-10.2); Carbon Dioxide 20 mmol/L (22-30); Chloride 109 mmol/L (98-107); Cholesterol 195 mg/dL (<200); Glucose 139 mg/dL (74-99); HDL Cholesterol 58 mg/dL (40-60); LDL Cholesterol,Calculated 103 mg/dL (0-99); Non-African American GFR(CKD) >90 (>60 ml/min/1.73 sqM); Sodium 138 mmol/L (137-145); Triglycerides 171 mg/dL (<150)
[2019-08-17 05:58] LABS: Basophils % (A) 0 %; Eosinophils % (A) 0 %; HCT 44.8 % (34.0-46.0); HGB 13.8 gm/dL (11.4-16.0); Lymphocytes # (A) 1.3 k/uL (1.0-4.8); Lymphocytes % (A) 10 %; MCHC 30.8 g/dL (31.0-37.0); Mean Platelet Volume 9.1; Monocytes # (A) 0.7 k/uL (0-1.0); Monocytes % (A) 5 %; Neutrophils # (A) 10.5 k/uL (1.3-7.7); Neutrophils % (A) 82 %; Platelet Count 213 k/uL (150-450); RBC 4.76 m/uL (3.80-5.40); RDW 15.3 % (11.5-15.5); WBC 12.7 k/uL (3.8-10.6)
[2019-08-17] MEDS ORDERED: LEVOTHYROXINE 50 MCG TAB PO SCH (06:30)
[2019-08-17] MEDS ORDERED: CITALOPRAM HYDROBROMIDE 20 MG TAB PO SCH (09:00)
[2019-08-17] MEDS ORDERED: ASPIRIN 325 MG TAB PO SCH (09:00)
[2019-08-17] MEDS ORDERED: LITHIUM CARBONATE 300 MG PO SCH ×2 (09:00)
[2019-08-17] MEDS: FAMOTIDINE 20 MG TAB PO SCH (09:08)
[2019-08-17] MEDS: levETIRAcetam IV 500 MG in SODIUM CHLORIDE 0.9% 100 ML IVPB SCH (09:10)
[2019-08-17] MEDS: ENOXAPARIN 40 MG/0.4 ML SYRINGE SQ SCH (09:10)
--- NOTE | 2019-08-17 09:33 | P.CON ---
Consult Note - . Consult date: 08/17/19 Assessment/Plan:: Clinical Problems: Acute delirium secondary to an acute ASSOCIATE EDITOR event, rule out major reminder vascular neurocognitive disorder, persistent depressive disorder, unresolved grief Interim history: I reviewed the medical record and attempted to interview the patient. She is a 64-year-old [place] woman who has a history of a persistent depressive disorder. She initially presented to the [facility] for evaluation of a fall but was found to have aspirin toxicity. She denied that her aspirin use was a suicide attempt but described chronic high use of aspirin. She complained chronic headache, periods of "shaking" that is a result of a fall and classic signs and symptoms of a depressive disorder. On 08/16/2019 the psychiataric nurse found her sitting up on the side of her bed diaphoretic and emesis and a [place]. She is responsive but her speech was slurred. She was transferred to intensive care with a suspected CVA. The medical note mentions seizures after the acute neurovascular event. Computed tomography scanand angiography CT showed evidence of an acute or subacute infarct involving the left cerebral hemisphere and both posterior occipital lobes. The neurologist diagnose an acute infarct versus a posterior reversible encephalopathy syndrome and new onset seizure disorder secondary to uncontrolled hypertension and the cerebrovascular event. The neurologist recommended Keppra, EEG and MRI of the brain The patient was restless and attempting to get out of her bed. She did not recognize me and was unable to articulate the reason for her current hospitalization. Mental status exam: She presented as disheveled elderly [place] female who did not make eye contact. She has a blank facial expression. She was alert and oriented to person. She knew the name of the hospital. She knew the month was August and the year was 2019.. She was restless but showed no abnormal movements. Her speech was not spontaneous, slurred and quiet. She appeared frightened and confused. She had poverty of speech and his content of speech and I could not evaluate her thought content her thought process. Due to the acuity of her illness she is not appropriate for formal mental status testing. Assessment: She is status post a cerebrovascular incident and possibly postictal from new onset seizure. She would require continued medical and neurological evaluation and treatment. Depending upon the degree of recovery she may not be appropriate for transfer back to the psychiatric unit. Plan: Continue current psychotropic medications for now. Will follow. Thank you for the consult.
--- NOTE | 2019-08-17 09:53 | PN ---
PROGRESS NOTE DATE OF SERVICE: 08/17/2019. CLINICAL HISTORY: Nataly was evaluated in the ICU and case was discussed with nursing staff. No recurrent seizure activity has been noted. The patient has become more alert according to nursing staff and was answering orientation questions. The patient would not specifically answer questions for me at this time regarding whether she has a headache or other complaints. CURRENT MEDICATIONS: Albuterol, aspirin 325 mg daily, Celexa, Lovenox 40 mg daily, Pepcid, Keppra 500 mg q.12 hours, Synthroid, Lithobid, Ativan p.r.n., and Seroquel. PHYSICAL EXAM: Upon arrival to the patient's room in the ICU, she was lying in bed with her eyes closed through the course of the evaluation, the patient told me that she needed to go to the bathroom. When I asked her to repeat this, she did. Speech is hypophonic. She would follow a few commands including sticking out her tongue and wiggling her toes. This is an improvement from my evaluation yesterday. CRANIAL NERVES 2-12: Pupils are equal and reactive to light symmetrically. The patient does blink to threat bilaterally. Oculocephalic reflex is intact. Corneal reflex and nasal tickle are intact. No clear facial asymmetry. Gag reflex is present. Tongue protruded midline. MOTOR EXAMINATION: The patient will not cooperate with formal muscle strength testing, although moves all extremities in a symmetric fashion and withdraws to noxious stimulation symmetrically. There is normal bulk and tone. Notably, muscles with no involuntary movements noted. No seizure activity was witnessed. Plantar responses flexor bilaterally. Hernandez's is absent. DIAGNOSTIC TESTING: The patient's lab work demonstrates a white blood count of 12.7, hemoglobin of 13.8, platelet count 213. A sodium 138, potassium 4.0, BUN 9 with creatinine 0.5. Cholesterol 195, an LDL of 103, HDL of 58. [place] level 0.3. IMPRESSION: 1. Left cerebellar/bilateral occipital hypodensities on CT, which may represent acute infarct versus PRES related to hypertensive encephalopathy. 2. New onset seizure secondary to #1. 3. Recent hospitalization for salicylate toxicity, initially presenting on 08/11/2019. 4. Bipolar disorder, borderline personality disorder and posttraumatic stress disorder with history of previous mental health unit admissions. RECOMMENDATION: 1. Case was discussed with nursing staff. 2. MRI of the brain with and without contrast is scheduled to take place this morning and if the hypodensities confirm acute infarcts, in the setting of the large left cerebellar lesion, the patient will require transfer for neurosurgical backup. 3. Risk factor modification. 4. The patient is currently maintained on aspirin and Keppra. 5. Seizure precautions and Ativan are available on a p.r.n. basis. 6. Will follow with you. BLAKE / HELION: [id number] / PEARL
--- NOTE | 2019-08-17 10:36 | ECHOF ---
Referral Reason:stroke MEASUREMENTS -------- HEIGHT: 162.6 cm WEIGHT: 83.5 kg BP: 173/86 RVIDd: 2.6 cm (< 3.3) IVSd: 1.2 cm (0.6 - 1.1) LVIDd: 4.4 cm (3.9 - 5.3) LVPWd: 1.2 cm (0.6 - 1.1) IVSs: 1.7 cm LVIDs: 3.1 cm LVPWs: 1.5 cm LA Diam: 3.8 cm (2.7 - 3.8) LAESV Index (A-L): 17.31 ml/m Ao Diam: 2.9 cm (2.0 - 3.7) AV Cusp: 2.3 cm (1.5 - 2.6) MV EXCURSION: 18.829 mm (> 18.000) MV EF SLOPE: 67 mm/s (70 - 150) EPSS: 0.7 cm MV E Francois: 0.67 m/s MV DecT: 199 ms MV A Francois: 1.06 m/s MV E/A Ratio: 0.63 RAP: 5.00 mmHg RVSP: 29.84 mmHg FINDINGS -------- This was a technically adequate study. The left ventricular size is normal. There is borderline concentric left ventricular hypertrophy. Overall left ventricular systolic function is normal with, an EF between 60 - 65 %. The right ventricle is normal in size. Normal LA size by volume 22+/-6 ml/m2. The right atrium is normal in size. Interatrial and interventricular septum intact. The aortic valve is trileaflet and appears structurally normal. There is mild aortic regurgitation. Syjy-nt-[id number] mitral regurgitation is present. Mild tricuspid regurgitation present. Right ventricular systolic pressure is normal at < 35 mmHg. There is no pulmonic regurgitation present. The aortic root size is normal. IVC Not well visulized. There is no pericardial effusion. CONCLUSIONS -------- 1. This was a technically adequate study. 2. The left ventricular size is normal. 3. There is borderline concentric left ventricular hypertrophy. 4. Overall left ventricular systolic function is normal with, an EF between 60 - 65 %. 5. The right ventricle is normal in size. 6. Normal LA size by volume 22+/-6 ml/m2. 7. The right atrium is normal in size. 8. Interatrial and interventricular septum intact. 9. The aortic valve is trileaflet and appears structurally normal. 10. There is mild aortic regurgitation. 11. Fstw-ah-mgejyxzy mitral regurgitation is present. 12. Mild tricuspid regurgitation present. 13. Right ventricular systolic pressure is normal at < 35 mmHg. 14. There is no pulmonic regurgitation present. 15. The aortic root size is normal. 16. IVC Not well visulized. 17. There is no pericardial effusion. AUDIOLOGIST: Roseline Wadsworth RDCS
--- NOTE | 2019-08-17 10:52 | MR ---
EXAMINATION TYPE: MR brain wo/w con DATE OF EXAM: 08/17/2019 COMPARISON: CT brain 08/16/2019 HISTORY: AMS, CVA TECHNIQUE: Multiplanar, multisequence images of the brain and brainstem is performed without and with IV contras t, utilizing 8.5 mL intravenous Gadavist . FINDINGS: There is increased signal on diffusion within the posterior left parietal lobe cortex. Ther e is increased signal within the medial right temporal lobe. Increased signal in the left cerebellum. FLAIR and T2 imaging demonstrated extensive abnormal signal there are diffuse abnormal signal involvi ng the cerebellum greater on the left with apparent mass effect upon the fourth ventricle. There is a punctate areas of enhancement involving the cerebellum. Additional areas of enhancement are seen in the occipital lobes bilaterally and within the right cerebellar hemisphere and left frontal lobe and bilateral parietal lobes.. No midline shift or mass effect. Diffuse abnormal signal seen throughout the white matter of both cerebral hemispheres most marked in the occipital lobes bilaterally. Abnormal signal involving the [place] on the right and bilateral cerebe llum greater on the left noted on both diffusion and FLAIR imaging. Midline structures demonstrate normal morphology. The cerebellar tonsils are low-lying in position. Correlate for increased intracranial pressure. Post contrast images demonstrate no abnormal enhancem ent. The dural venous sinuses appear patent. The visualized sinuses are clear and the globes are inta ct. IMPRESSION: 1. Diffuse abnormal signal throughout both the bilateral cerebellum and cerebrum. There is mass effec t and mild compression of the lateral margin of the fourth ventricle on the left. There are numerous punctate areas of enhancement involving the cerebellum and supratentorially. Diffusion demonstrates o nly faint high signal in the region on multiple levels. Suspect that there is a component of ischemic change in the left occipital lobe and medial right temporal lobe. Differential diagnosis would inclu de PRES, metabolic, although a neoplastic process given the enhancement cannot be excluded. Subacute infarcts in the differential diagnosis. Correlate clinically to exclude infectious etiology, ADEM, PM L. 2. Cerebellar tonsils are low-lying in position correlate for increased intracranial pressure. Case d iscussed with the referring neurologist..
--- NOTE | 2019-08-17 14:59 | P.DS ---
Providers Date of admission: 08/16/19 03:19 Attending physician: Pat Caban Consults: 08/16/19 07:05 Consult Physician Routine Consulting Provider: Anand Portillo Consult Reason/Comments: A-team from [facility] has not been cleared by Psych Do you want consulting provider notified?: Yes 08/16/19 07:10 Consult Physician Stat Consulting Provider: Robert Moulton Consult Reason/Comments: seizures, stroke Do you want consulting provider notified?: Yes Primary care physician: Azam [facility] Course: patient the is a 62-year-old female was admitted to medical floor about 5-6 days ago for salicylate toxicity with metabolic acidosis and respiratory alkalosis underwent emergent hemodialysis. overdose on aspirin is unintentional for headache. patient was doing well subsequently transferred to psychiatric floor as per recommendations of psychiatric rest although she didn't have suicidal ideation she had frequent suicidal thoughts. Patient does have bipolar disorder is on multiple antipsychotic and bipolar medications. Computed tomography scan at that time of admission did not show any significant abnormality. During has a hospitalization: Psychiatric Floor Patient Had Slurred Speech Altered Mental Status Because of Which Patient Had a Computed Tomography Scan of the Head Which Showed Left Acute or Subacute Stroke in the Parietal Lobe and Occipital Lobe and Subsequently Transferred to Stepdown Unit, Had 3 Episodes of Seizures. Patient Was Post Ictal Yesterday Presently Doing Well Awake and Able to Answer Questions but Still Confused of Breath No Focal Weakness Anywhere. Patient Had an MRIof the brain which showed diffuse abnormal signal throughout the bilateral cerebrum and cerebellum with mass effect mild compression of the lateral margin of the fourth ventricle on the left with numerous punctate lesions involving the cerebellum and supratentorially.because of mass effect and compression of the lateral margin of the fourth ventricle neurologist recommended neurosurgical evaluation because of which patient is being transferred to [facility], discussed with the Dr. Blackwood, neurosurgeon from [facility] who recommended hospitalization to medical floor with neurology and neurosurgical consultation. As per the neurologist here patient probably has posterior encephalopathy syndrome or maybe an acute stroke leading to severe encephalopathy and seizures he doesn't believe patient is actively seizing at this time patient is awake and alert and able to answer questions although with still bit confused.She does have some leukocytosis CT angios of the head and neck did not show any significant abnormality which was done as a part of stroke workup Showed EF of 60-65% with borderline left particular hypertrophy no significant valvular abnormalities RVSP of less than 35 and no intraventricular thrombus.for further details please refer to the consultation from neurologist . PHYSICAL EXAMINATION: GENERAL: The patient is alert and oriented [id number], not in any acute distress. Well developed, well nourished. HEENT: Pupils are round and equally reacting to light. EOMI. No scleral icterus. No conjunctival pallor. Normocephalic, atraumatic. No pharyngeal erythema. No thyromegaly. CARDIOVASCULAR: S1 and S2 present. No murmurs, rubs, or gallops. PULMONARY: Chest is clear to auscultation, no wheezing or crackles. ABDOMEN: Soft, nontender, nondistended, normoactive bowel sounds. No palpable organomegaly. MUSCULOSKELETAL: No joint swelling or deformity. EXTREMITIES: No cyanosis, clubbing, or pedal edema. NEUROLOGICAL: Gross neurological examination did not reveal any focal deficits. SKIN: No rashes. -new-onset seizures: Secondary to probably posterior reversible encephalopathy syndrome and severe encephalopathy may be metabolic. Possibility of stroke cannot be ruled out as mentioned in MRI above. Urology believes seizure patient may have hypertensive encephalopathy although had high his blood pressure systolic is not above 180during the entire hospitalization. -hypertension -Obstructive sleep apnea -Bipolar disorder Plan - Discharge Summary Discharge Rx Participant: Yes New Discharge Prescriptions: No Action Ergocalciferol (Vitamin D2) [Vitamin D2] 50,000 unit PO Q7D QUEtiapine [SEROquel] 800 mg PO HS [place] Carbonate [[place] Carbonate ER] 300 mg PO QAM Albuterol Sulfate [Ventolin HFA] 1 - 2 puff INHALATION RT-Q4H PRN PRN Reason: Shortness Of Breath Albuterol Nebulized [Ventolin Nebulized] 2.5 mg INHALATION RT-QID PRN PRN Reason: Shortness Of Breath Levothyroxine Sodium [Synthroid] 50 mcg PO DAILY Citalopram Hydrobromide [CeleXA] 40 mg PO DAILY [place] Carbonate [[place] Carbonate ER] 450 mg PO HS Morphine Sulfate Ir [MSIR] 30 mg PO BID #0 Meloxicam [Qmiiz Odt] 15 mg PO DAILY PRN #30 tab.rapdis PRN Reason: Pain Famotidine [Pepcid] 20 mg PO BID #30 tablet Discharge Medication List Ergocalciferol (Vitamin D2) [Vitamin D2] 50,000 unit PO Q7D 11/25/17 [History] QUEtiapine [SEROquel] 800 mg PO HS 11/25/17 [History] Albuterol Nebulized [Ventolin Nebulized] 2.5 mg INHALATION RT-QID PRN 08/11/19 [History] Albuterol Sulfate [Ventolin HFA] 1 - 2 puff INHALATION RT-Q4H PRN 08/11/19 [History] Citalopram Hydrobromide [CeleXA] 40 mg PO DAILY 08/11/19 [History] Levothyroxine Sodium [Synthroid] 50 mcg PO DAILY 08/11/19 [History] [place] Carbonate [[place] Carbonate ER] 300 mg PO QAM 08/11/19 [History] [place] Carbonate [[place] Carbonate ER] 450 mg PO HS 08/11/19 [History] Famotidine [Pepcid] 20 mg PO BID #30 tablet 08/13/19 [Rx] Meloxicam [Qmiiz Odt] 15 mg PO DAILY PRN #30 tab.rapdis 08/13/19 [Rx] Morphine Sulfate Ir [MSIR] 30 mg PO BID #0 08/13/19 [Rx]
[2019-08-17 16:17] VITALS: BP 178/87; PULSE 96; RESP 28; TEMP 98.4
[2019-08-17 16:27] LABS: Hemoglobin A1C 6.3 % (4.0-6.0)
[2019-08-17] MEDS: LORazepam 2 MG/ML INJ IV PRN (18:02)
--- NOTE | 2019-08-19 10:49 | EEG ---
ELECTROENCEPHALOGRAM REPORT DATE OF STUDY: 08/16/2019 REFERRING PHYSICIAN: Dr. Caban and Dr. Barrios. CLINICAL HISTORY: This is a 20 channel EEG with 1 channel EKG recording on a 64-year-old female who initially presented to [facility] on 08/11/2019 for salicylate toxicity with metabolic acidosis and underwent emergent hemodialysis. The patient was subsequently transferred to the psychiatric floor, then transferred back to the medical ICU after the patient was found sitting on the side of her bed, diaphoretic and with emesis. According to the psychiatric note, the patient was responsive but speech was slurred. Reportedly three seizures were witnessed. The patient had a CT of the head completed which demonstrated a large hypodensity involving the left cerebellum and bilateral posterior head regions raising question of acute infarct versus PRES (posterior reversible encephalopathy syndrome). The patient reportedly has no previous history of seizures. This study is being done to rule out epileptiform discharges. FINDINGS: No discernible posterior dominant alpha rhythm was noted throughout the recording. Throughout the recording, there are frequent electrographic seizures with right central parietal onset and subsequent evolution. Between seizures, there is low to moderate voltage, 2-5 hertz activity which is poorly regulated and poorly sustained. Low- voltage faster frequencies were reduced over the frontal central head regions. 1 mg of Ativan was provided during the recording without significant improvement in the electrographic pattern. No sleep architecture was seen. IMPRESSION: 1. Frequent electrographic seizures with right central parietal onset. 2. Diffuse background slowing. INTERPRETATION: This EEG is consistent with the ictal expression of a partial epilepsy, this places the patient at increased risk for partial and secondarily generalized seizures. These findings are superimposed on a background which supports a severe diffuse encephalopathy. MMODL / IJN: [id number] / [facility]
--- NOTE | 2019-08-21 08:45 | CDI ---
Documentation Clarification Form Date: 08/21/2019 08:22:32 AM From: [employer] Phone: If you have a question about this query, please contact Pebbles Haynes, [employer] Machine Setter at [phone] between 8am and 5pm. Admit Date: 08/16/2019 03:19:00 AM Patient Name: Nataly Vick Visit Number: [id number] Discharge Date: 08/17/2019 06:36:00 PM ATTENTION: The Clinical Documentation Specialists (CDI) and [facility] Coding Staff appreciate your assistance in clarifying documentation. Please respond to the clarification below the line at the bottom and electronically sign. The CDI & [facility] Coding staff will review the response and follow-up if needed. Please note: Queries are made part of the Legal Health Record. If you have any questions, please contact the author of this message via ITS. Dr. Ada Barrios Per DCS "Severe encephalopathy, maybe metabolic." Please clarify metabolic process that could be causing the metabolic encephalopathy. History/Risk Factors: new onset of seizures: Secondary to probably posterior reversible encephalopathy. Clinical Indicators: Labs: EEG: Consistent with the ictal expression of partial epilepsy. Superimposed on a background which supports a severe diffuse encephalopathy. CT/MRI Brain: Cerebellar tonsils low lying. Suspect ischemic changes. Diffuse abnormal signal through the bilateral cerebral and cerebellar. Mass effect and compression of the lateral margin of the fourth ventricle on the left. Treatment: Ativan Seizure precautions and transferred to [facility] with neurosurgical backup. In your professional opinion, can you please clarify metabolic process for patient possibly having metabolic encephalopathy. Other, please specify Unable to determine Patient had toxic and metabolic encephalopathy which was already dictated in my note MTDD
== END 2019-08-17 18:36 | disposition short-term general hospital (02) | DRG 64 ==
LOC: 2SICU 03:19
PROVIDERS: ADMIT Hospitalist; ATTEND Hospitalist
DX: I63.9 Cerebral infarction, unspecified (principal); R40.2113 Coma scale, eyes open, never, at hospital admission; G92 Toxic encephalopathy; E87.2 Acidosis; R29.810 Facial weakness; R47.81 Slurred speech; R40.2353 Coma scale, best motor response, localizes pain, at hospital admission; R40.2243 Coma scale, best verbal response, confused conversation, at hospital admission; I10 Essential (primary) hypertension; G47.33 Obstructive sleep apnea (adult) (pediatric); E03.9 Hypothyroidism, unspecified; F17.210 Nicotine dependence, cigarettes, uncomplicated; F31.9 Bipolar disorder, unspecified; F43.10 Post-traumatic stress disorder, unspecified; F60.3 Borderline personality disorder; K58.9 Irritable bowel syndrome, unspecified; M79.7 Fibromyalgia; R56.9 Unspecified convulsions; Z79.82 Long term (current) use of aspirin; Z79.890 Hormone replacement therapy; Z79.899 Other long term (current) drug therapy; Z80.3 Family history of malignant neoplasm of breast; Z80.51 Family history of malignant neoplasm of kidney; Z86.59 Personal history of other mental and behavioral disorders; F60.2 Antisocial personality disorder; G89.29 Other chronic pain; Z86.14 Personal history of Methicillin resistant Staphylococcus aureus infection; D72.829 Elevated white blood cell count, unspecified; G44.89 Other headache syndrome; R45.1 Restlessness and agitation; F43.29 Adjustment disorder with other symptoms; Z91.040 Latex allergy status
CPT/HCPCS: 70496; 70498; 70553; 80048; 80053; 80061; 80178; 83036; 83735; 85025; 85610; 85730; 93306; 95816

== ENCOUNTER 2019-08-24 17:09 | Inpatient (IN) | payer MEDICARE ==
[2019-08-24] MEDS ORDERED: ACETAMINOPHEN TAB 325 MG TAB PO STA (18:10)
--- NOTE | 2019-08-24 18:49 | ED ---
Altered Mental Status HPI - General Source: patient, family Mode of arrival: wheelchair Limitations: altered mental status <Bon Herring - Last Filed: 08/24/19 21:35> <Linnea Alexander - Last Filed: 08/28/19 01:20> - General Chief Complaint: Altered Mental Status Stated Complaint: Altered mental status Time Seen by Provider: 08/24/19 17:35 - History of Present Illness Initial Comments: Patient is 64-year-old female with history of bipolar disorder presenting to emergency Department with chief complaint of altered mental status. Daughter states the patient was admitted about 2 weeks ago for accidental salicylate overdose. These the patient was also found to have a possible stroke alert transferred to [facility] for further management. 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 States in the ride home the patient continued to be "in and out". Patient also has history of chronic back pain is complaining of continual back p ain now. States she also has pain in her neck from the fall she suffered after she overdosed on salicylates. (Bon Herring) - Related Data Home Medications Medication Instructions Recorded Confirmed Ergocalciferol (Vitamin D2) 50,000 unit PO Q7D 11/25/17 08/25/19 [Vitamin D2] QUEtiapine [SEROquel] 800 mg PO HS 11/25/17 08/24/19 Albuterol Nebulized [Ventolin 2.5 mg INHALATION RT-QID PRN 08/11/19 08/24/19 Nebulized] Albuterol Sulfate [Ventolin HFA] 1 - 2 puff INHALATION RT-Q4H PRN 08/11/19 08/24/19 Citalopram Hydrobromide [CeleXA] 40 mg PO DAILY 08/11/19 08/24/19 Levothyroxine Sodium [Synthroid] 50 mcg PO DAILY 08/11/19 08/25/19 [place] Carbonate [[place] 300 mg PO QAM 08/11/19 08/24/19 Carbonate ER] [place] Carbonate [[place] 450 mg PO HS 08/11/19 08/25/19 Carbonate ER] Atorvastatin [Lipitor] 80 mg PO HS 08/25/19 08/25/19 Labetalol [Trandate] 100 mg PO BID 08/25/19 08/25/19 Nicotine 7Mg/24Hr Patch [Habitrol] 7 mg TRANSDERM DAILY 08/25/19 08/25/19 Previous Rx's Medication Instructions Recorded Famotidine [Pepcid] 20 mg PO BID #30 tablet 08/13/19 Meloxicam [Qmiiz Odt] 15 mg PO DAILY PRN #30 tab.rapdis 08/13/19 Morphine Sulfate Ir [MSIR] 30 mg PO BID #0 08/13/19 Allergies Allergy/AdvReac Type Severity Reaction Status Date / Time latex Allergy Unknown Rash/Hives Verified 08/24/19 22:05 Review of Systems ROS Other: All systems not noted in ROS Statement are negative. <Bon Herring - Last Filed: 08/24/19 21:35> ROS Other: All systems not noted in ROS Statement are negative. <Linnea Alexander - Last Filed: 08/28/19 01:20> ROS Statement: Those systems with pertinent positive or pertinent negative responses have been documented in the HPI. Past Medical History Past Medical History: Fibromyalgia, Hypertension, Seizure Disorder, Sleep Apnea/CPAP/BIPAP Additional Past Medical History / Comment(s): bipolar; borderline personality; antisocial; eating disorder, PTSD, chronic aspirin user - 4-8 tablets a day - about 40 years, chronic pain History of Any Multi-Drug Resistant Organisms: MRSA Date of last positivie culture/infection: 2004 MDRO Source:: unknown Past Surgical History: Back Surgery Additional Past Surgical History / Comment(s): neck surgery Past Anesthesia/Blood Transfusion Reactions: No Reported Reaction Past Psychological History: Anxiety, Bipolar, Depression, PTSD Smoking Status: Current every day smoker Past Alcohol Use History: None Reported Past Drug Use History: None Reported - Past Family History Sister(s) Family Medical History: Cancer, Renal Disease Additional Family Medical History / Comment(s): breast cancer, kidney cancer <Bon Herring - Last Filed: 08/24/19 21:35> General Exam Limitations: altered mental status General appearance: alert, in no apparent distress Head exam: Present: atraumatic, normocephalic, normal inspection Eye exam: Present: normal appearance, PERRL, EOMI Pupils: Present: normal accommodation ENT exam: Present: normal exam, normal oropharynx, mucous membranes moist Neck exam: Present: normal inspection, full ROM. Absent: tenderness Respiratory exam: Present: normal lung sounds bilaterally. Absent: respiratory distress, wheezes, rales Cardiovascular Exam: Present: regular rate, normal rhythm, normal heart sounds Extremities exam: Present: normal inspection (Multiple ecchymotic regions of bilateral upper extremities), full ROM, normal capillary refill, other (+2 ulnar and radial pulses bilateral. +2 episodes. Is up states he has bilaterally.) Back exam: Present: normal inspection, full ROM, tenderness Neurological exam: Present: alert, altered Psychiatric exam: Present: normal affect, agitated Skin exam: Present: warm, dry, intact, normal color <Bon Herring - Last Filed: 08/24/19 21:35> Course Vital Signs 08/24/19 08/24/19 08/24/19 17:17 19:30 22:30 Temperature 100.5 F H 98.9 F Pulse Rate 88 81 78 Respiratory 18 18 16 Rate Blood Pressure 126/77 119/78 121/79 O2 Sat by Pulse 96 99 99 Oximetry Medical Decision Making - Lab Data Result diagrams: 08/24/19 19:00 08/24/19 19:00 <Bon Herring - Last Filed: 08/24/19 21:35> - Lab Data Result diagrams: 08/26/19 10:33 08/26/19 10:33 <Linnea Alexander - Last Filed: 08/28/19 01:20> - Medical Decision Making Patient is 64-year-old female with history of bipolar disorder presenting to the emergency department with a chief complaint of altered mental status. Patient was brought to the ED after she was discharged from [facility]. On exam patient is alert to self and place. Patient is also febrile in the ED. Patient started on antipyretics. CT of the brain reveals unchanged subacute ischemic changes. EKG shows prolonged QT. Patient appears to be urinary tract infection with elevated and nitrates, leukocyte esterase and white blood cells. Patient started on Rocephin. Patient given IV fluids. I spoke with CORTEZ Stanton and we'll admit the patient for further medical management. Case discussed with Admitting physician is Dr Caban (Bon Herring) I was available for consultation in the emergency department. The history and physical exam were done by the midlevel provider. I was consulted for this patients care. I reviewed the case with the midlevel provider and based on their presentation of the patient, I agree with the assessment, medical decision making and plan of care as documented. Chart was dictated using [employer] dictation software. Attempts were made to correct any dictation errors however some typographical errors may persist. Patient was seen during a national state of emergency due to the Covid-19 pandemic. (Linnea Alexander) - Lab Data Lab Results 08/24/19 08/24/19 08/24/19 Range/Units 19:00 19:00 19:00 WBC 11.8 H (3.8-10.6) k/uL RBC 4.27 (3.80-5.40) m/uL Hgb 12.5 (11.4-16.0) gm/dL Hct 39.8 (34.0-46.0) % MCV 93.1 (80.0-100.0) fL MCH 29.4 (25.0-35.0) pg MCHC 31.5 (31.0-37.0) g/dL RDW 15.2 (11.5-15.5) % Plt Count 319 (150-450) k/uL Neutrophils % 74 % Lymphocytes % 17 % Monocytes % 4 % Eosinophils % 3 % Basophils % 0 % Neutrophils # 8.7 H (1.3-7.7) k/uL Lymphocytes # 2.1 (1.0-4.8) k/uL Monocytes # 0.5 (0-1.0) k/uL Eosinophils # 0.3 (0-0.7) k/uL Basophils # 0.0 (0-0.2) k/uL Hypochromasia PT 10.0 (9.0-12.0) sec INR 1.0 (<1.2) APTT 23.4 (22.0-30.0) sec Sodium 138 (137-145) mmol/L Potassium 3.7 (3.5-5.1) mmol/L Chloride 109 H (98-107) mmol/L Carbon Dioxide 20 L (22-30) mmol/L Anion Gap 9 mmol/L BUN 8 (7-17) mg/dL Creatinine 0.84 (0.52-1.04) mg/dL Est GFR (CKD-EPI)AfAm 86 (>60 ml/min/1.73 sqM) Est GFR (CKD-EPI)NonAf 75 (>60 ml/min/1.73 sqM) Glucose 119 H (74-99) mg/dL POC Glucose (mg/dL) (75-99) mg/dL POC Glu Information Technology Security Analyst ID Plasma Lactic Acid Slava (0.7-2.0) mmol/L Calcium 9.6 (8.4-10.2) mg/dL Total Bilirubin 0.6 (0.2-1.3) mg/dL AST 69 H (14-36) U/L ALT 77 H (4-34) U/L Alkaline Phosphatase 138 H (38-126) U/L Troponin I (0.000-0.034) ng/mL Total Protein 7.2 (6.3-8.2) g/dL Albumin 4.0 (3.5-5.0) g/dL Urine Color Urine Appearance (Clear) Urine pH (5.0-8.0) Ur Specific [place] (1.001-1.035) Urine Protein (Negative) Urine Glucose (UA) (Negative) Urine Ketones (Negative) Urine Blood (Negative) Urine Nitrite (Negative) Urine Bilirubin (Negative) Urine Urobilinogen (<2.0) mg/dL Ur Leukocyte Esterase (Negative) Urine RBC (0-5) /hpf Urine WBC (0-5) /hpf Ur Squamous Epith Cells (0-4) /hpf Amorphous Sediment (None) /hpf Urine Bacteria (None) /hpf Hyaline Casts (0-2) /lpf Urine Mucus (None) /hpf Urine Opiates Screen (NotDetected) Ur Oxycodone Screen (NotDetected) Urine Methadone Screen (NotDetected) Ur Propoxyphene Screen (NotDetected) Ur Barbiturates Screen (NotDetected) U Tricyclic Antidepress (NotDetected) Ur Phencyclidine Scrn (NotDetected) Ur Amphetamines Screen (NotDetected) U Methamphetamines Scrn (NotDetected) U Benzodiazepines Scrn (NotDetected) [place] mmol/L Urine Cocaine Screen (NotDetected) U Marijuana (THC) Screen (NotDetected) Coronavirus (PCR) (Not Detected) 08/24/19 08/24/19 08/24/19 Range/Units 19:00 19:00 19:00 WBC (3.8-10.6) k/uL RBC (3.80-5.40) m/uL Hgb (11.4-16.0) gm/dL Hct (34.0-46.0) % MCV (80.0-100.0) fL MCH (25.0-35.0) pg MCHC (31.0-37.0) g/dL RDW (11.5-15.5) % Plt Count (150-450) k/uL Neutrophils % % Lymphocytes % % Monocytes % % Eosinophils % % Basophils % % Neutrophils # (1.3-7.7) k/uL Lymphocytes # (1.0-4.8) k/uL Monocytes # (0-1.0) k/uL Eosinophils # (0-0.7) k/uL Basophils # (0-0.2) k/uL Hypochromasia PT (9.0-12.0) sec INR (<1.2) APTT (22.0-30.0) sec Sodium (137-145) mmol/L Potassium (3.5-5.1) mmol/L Chloride (98-107) mmol/L Carbon Dioxide (22-30) mmol/L Anion Gap mmol/L BUN (7-17) mg/dL Creatinine (0.52-1.04) mg/dL Est GFR (CKD-EPI)AfAm (>60 ml/min/1.73 sqM) Est GFR (CKD-EPI)NonAf (>60 ml/min/1.73 sqM) Glucose (74-99) mg/dL POC Glucose (mg/dL) (75-99) mg/dL POC Glu Information Technology Security Analyst ID Plasma Lactic Acid Slava 1.1 (0.7-2.0) mmol/L Calcium (8.4-10.2) mg/dL Total Bilirubin (0.2-1.3) mg/dL AST (14-36) U/L ALT (4-34) U/L Alkaline Phosphatase (38-126) U/L Troponin I <0.012 (0.000-0.034) ng/mL Total Protein (6.3-8.2) g/dL Albumin (3.5-5.0) g/dL Urine Color Yellow Urine Appearance Cloudy H (Clear) Urine pH 7.0 (5.0-8.0) Ur Specific [place] 1.007 (1.001-1.035) Urine Protein Trace H (Negative) Urine Glucose (UA) Negative (Negative) Urine Ketones Negative (Negative) Urine Blood Negative (Negative) Urine Nitrite Positive H (Negative) Urine Bilirubin Negative (Negative) Urine Urobilinogen <2.0 (<2.0) mg/dL Ur Leukocyte Esterase Large H (Negative) Urine RBC 7 H (0-5) /hpf Urine WBC 67 H (0-5) /hpf Ur Squamous Epith Cells 2 (0-4) /hpf Amorphous Sediment Rare H (None) /hpf Urine Bacteria Many H (None) /hpf Hyaline Casts 1 (0-2) /lpf Urine Mucus Rare H (None) /hpf Urine Opiates Screen Detected H (NotDetected) Ur Oxycodone Screen Not Detected (NotDetected) Urine Methadone Screen Not Detected (NotDetected) Ur Propoxyphene Screen Not Detected (NotDetected) Ur Barbiturates Screen Not Detected (NotDetected) U Tricyclic Antidepress Detected H (NotDetected) Ur Phencyclidine Scrn Not Detected (NotDetected) Ur Amphetamines Screen Not Detected (NotDetected) U Methamphetamines Scrn Not Detected (NotDetected) U Benzodiazepines Scrn Not Detected (NotDetected) [place] mmol/L Urine Cocaine Screen Not Detected (NotDetected) U Marijuana (THC) Screen Not Detected (NotDetected) Coronavirus (PCR) (Not Detected) 08/24/19 08/24/19 08/26/19 Range/Units 19:14 22:35 10:33 WBC 7.8 (3.8-10.6) k/uL RBC 3.77 L (3.80-5.40) m/uL Hgb 11.6 (11.4-16.0) gm/dL Hct 36.9 (34.0-46.0) % MCV 97.8 (80.0-100.0) fL MCH 30.8 (25.0-35.0) pg MCHC 31.5 (31.0-37.0) g/dL RDW 15.2 (11.5-15.5) % Plt Count 326 (150-450) k/uL Neutrophils % 68 % Lymphocytes % 20 % Monocytes % 6 % Eosinophils % 2 % Basophils % 1 % Neutrophils # 5.3 (1.3-7.7) k/uL Lymphocytes # 1.6 (1.0-4.8) k/uL Monocytes # 0.5 (0-1.0) k/uL Eosinophils # 0.1 (0-0.7) k/uL Basophils # 0.0 (0-0.2) k/uL Hypochromasia Moderate PT (9.0-12.0) sec INR (<1.2) APTT (22.0-30.0) sec Sodium (137-145) mmol/L Potassium (3.5-5.1) mmol/L Chloride (98-107) mmol/L Carbon Dioxide (22-30) mmol/L Anion Gap mmol/L BUN (7-17) mg/dL Creatinine (0.52-1.04) mg/dL Est GFR (CKD-EPI)AfAm (>60 ml/min/1.73 sqM) Est GFR (CKD-EPI)NonAf (>60 ml/min/1.73 sqM) Glucose (74-99) mg/dL POC Glucose (mg/dL) 120 H (75-99) mg/dL POC Glu Information Technology Security Analyst Anand Cobb Plasma Lactic Acid Slava (0.7-2.0) mmol/L Calcium (8.4-10.2) mg/dL Total Bilirubin (0.2-1.3) mg/dL AST (14-36) U/L ALT (4-34) U/L Alkaline Phosphatase (38-126) U/L Troponin I (0.000-0.034) ng/mL Total Protein (6.3-8.2) g/dL Albumin (3.5-5.0) g/dL Urine Color Urine Appearance (Clear) Urine pH (5.0-8.0) Ur Specific [place] (1.001-1.035) Urine Protein (Negative) Urine Glucose (UA) (Negative) Urine Ketones (Negative) Urine Blood (Negative) Urine Nitrite (Negative) Urine Bilirubin (Negative) Urine Urobilinogen (<2.0) mg/dL Ur Leukocyte Esterase (Negative) Urine RBC (0-5) /hpf Urine WBC (0-5) /hpf Ur Squamous Epith Cells (0-4) /hpf Amorphous Sediment (None) /hpf Urine Bacteria (None) /hpf Hyaline Casts (0-2) /lpf Urine Mucus (None) /hpf Urine Opiates Screen (NotDetected) Ur Oxycodone Screen (NotDetected) Urine Methadone Screen (NotDetected) Ur Propoxyphene Screen (NotDetected) Ur Barbiturates Screen (NotDetected) U Tricyclic Antidepress (NotDetected) Ur Phencyclidine Scrn (NotDetected) Ur Amphetamines Screen (NotDetected) U Methamphetamines Scrn (NotDetected) U Benzodiazepines Scrn (NotDetected) [place] mmol/L Urine Cocaine Screen (NotDetected) U Marijuana (THC) Screen (NotDetected) Coronavirus (PCR) Not Detected (Not Detected) 08/26/19 08/27/19 Range/Units 10:33 07:35 WBC (3.8-10.6) k/uL RBC (3.80-5.40) m/uL Hgb (11.4-16.0) gm/dL Hct (34.0-46.0) % MCV (80.0-100.0) fL MCH (25.0-35.0) pg MCHC (31.0-37.0) g/dL RDW (11.5-15.5) % Plt Count (150-450) k/uL Neutrophils % % Lymphocytes % % Monocytes % % Eosinophils % % Basophils % % Neutrophils # (1.3-7.7) k/uL Lymphocytes # (1.0-4.8) k/uL Monocytes # (0-1.0) k/uL Eosinophils # (0-0.7) k/uL Basophils # (0-0.2) k/uL Hypochromasia PT (9.0-12.0) sec INR (<1.2) APTT (22.0-30.0) sec Sodium 140 (137-145) mmol/L Potassium 3.8 (3.5-5.1) mmol/L Chloride 117 H (98-107) mmol/L Carbon Dioxide 19 L (22-30) mmol/L Anion Gap 4 mmol/L BUN 3 L (7-17) mg/dL Creatinine 0.56 (0.52-1.04) mg/dL Est GFR (CKD-EPI)AfAm >90 (>60 ml/min/1.73 sqM) Est GFR (CKD-EPI)NonAf >90 (>60 ml/min/1.73 sqM) Glucose 125 H (74-99) mg/dL POC Glucose (mg/dL) (75-99) mg/dL POC Glu Information Technology Security Analyst ID Plasma Lactic Acid Slava (0.7-2.0) mmol/L Calcium 8.9 (8.4-10.2) mg/dL Total Bilirubin (0.2-1.3) mg/dL AST (14-36) U/L ALT (4-34) U/L Alkaline Phosphatase (38-126) U/L Troponin I (0.000-0.034) ng/mL Total Protein (6.3-8.2) g/dL Albumin (3.5-5.0) g/dL Urine Color Urine Appearance (Clear) Urine pH (5.0-8.0) Ur Specific [place] (1.001-1.035) Urine Protein (Negative) Urine Glucose (UA) (Negative) Urine Ketones (Negative) Urine Blood (Negative) Urine Nitrite (Negative) Urine Bilirubin (Negative) Urine Urobilinogen (<2.0) mg/dL Ur Leukocyte Esterase (Negative) Urine RBC (0-5) /hpf Urine WBC (0-5) /hpf Ur Squamous Epith Cells (0-4) /hpf Amorphous Sediment (None) /hpf Urine Bacteria (None) /hpf Hyaline Casts (0-2) /lpf Urine Mucus (None) /hpf Urine Opiates Screen (NotDetected) Ur Oxycodone Screen (NotDetected) Urine Methadone Screen (NotDetected) Ur Propoxyphene Screen (NotDetected) Ur Barbiturates Screen (NotDetected) U Tricyclic Antidepress (NotDetected) Ur Phencyclidine Scrn (NotDetected) Ur Amphetamines Screen (NotDetected) U Methamphetamines Scrn (NotDetected) U Benzodiazepines Scrn (NotDetected) [place] 0.3 mmol/L Urine Cocaine Screen (NotDetected) U Marijuana (THC) Screen (NotDetected) Coronavirus (PCR) (Not Detected) - EKG Data EKG Comments: Sinus rhythm with prolonged QT. Q waves in lead 3. Ventricular rate 89, OK 136, QRS 100, QTC 511. (Bon Herring) Disposition Is patient prescribed a controlled substance at d/c from ED?: No Time of Disposition: 21:38 <Bon Herring - Last Filed: 08/24/19 21:35> <Linnea Alexander - Last Filed: 08/28/19 01:20> Clinical Impression: Altered mental status, Urinary tract infection Disposition: ADMITTED IP TO THIS HOSP Condition: Fair
[2019-08-24 19:16] LABS: Glucose,Whole Blood 120 mg/dL (75-99)
[2019-08-24 19:19] LABS: Basophils % (A) 0 %; Eosinophils # (A) 0.3 k/uL (0-0.7); Eosinophils % (A) 3 %; HCT 39.8 % (34.0-46.0); HGB 12.5 gm/dL (11.4-16.0); Lymphocytes # (A) 2.1 k/uL (1.0-4.8); Lymphocytes % (A) 17 %; MCH 29.4 pg (25.0-35.0); MCHC 31.5 g/dL (31.0-37.0); MCV 93.1 fL (80.0-100.0); Mean Platelet Volume 8.9; Monocytes # (A) 0.5 k/uL (0-1.0); Monocytes % (A) 4 %; Neutrophils # (A) 8.7 k/uL (1.3-7.7); Neutrophils % (A) 74 %; Platelet Count 319 k/uL (150-450); RBC 4.27 m/uL (3.80-5.40); RDW 15.2 % (11.5-15.5); WBC 11.8 k/uL (3.8-10.6)
[2019-08-24 19:29] LABS: Amorphous Sediment,Urine Rare /hpf; Appearance,Urine Cloudy (Clear); Bacteria,Urine Many /hpf; Bilirubin,Urine Negative (Negative); Blood,Urine Negative (Negative); Calcium 9.6 mg/dL (8.4-10.2); Color,Urine Yellow; Glucose,Urine (UA) Negative (Negative); Hyaline Casts,Urine 1 /lpf (0-2); Ketones,Urine Negative (Negative); Leukocyte Esterase,Urine Large (Negative); Mucus,Urine Rare /hpf; Nitrite,Urine Positive (Negative); Potassium 3.7 mmol/L (3.5-5.1); Protein,Urine Trace (Negative); RBC,Urine 7 /hpf (0-5); Specific Gravity,Urine 1.007 (1.001-1.035); Squamous Epithelial Cell,Urine 2 /hpf (0-4); Total Bilirubin 0.6 mg/dL (0.2-1.3); Total Protein 7.2 g/dL (6.3-8.2); Urobilinogen,Urine <2.0 mg/dL (<2.0); WBC,Urine 67 /hpf (0-5)
[2019-08-24 19:31] LABS: Amphetamine Screen,Urine Not Detected (NotDetected); Barbiturate Screen,Urine Not Detected (NotDetected); Benzodiazepines Screen,Urine Not Detected (NotDetected); Cocaine Screen,Urine Not Detected (NotDetected); Methadone Screen, Urine Not Detected (NotDetected); Opiate Screen,Urine Detected (NotDetected); Oxycodone Screen, Urine Not Detected (NotDetected); Phencyclidine Screen,Urine Not Detected (NotDetected); Tricyclic Antidepressant,Urine Detected (NotDetected); Urn Cannabinoid Scrn Not Detected (NotDetected)
[2019-08-24 19:35] LABS: Partial Thromboplastin Time 23.4 sec (22.0-30.0)
[2019-08-24] MEDS ORDERED: cefTRIAXone IN SWFI 1,000 MG/10 ML SYRINGE IVP STA (19:47)
--- NOTE | 2019-08-24 20:45 | XR ---
EXAMINATION TYPE: XR chest 2V DATE OF EXAM: 08/24/2019 COMPARISON: 08/11/2019 HISTORY: Fall. Pain. TECHNIQUE: 2 views FINDINGS: Heart is normal. There is some linear density in the mid and lower lung kaminski. There is no pleural effusion. There are no hilar masses. Bony thorax is intact. Pulmonary vascularity is normal. IMPRESSION: Bilateral subsegmental atelectasis. Normal heart. There is improved inspiration and decre ase in pelvic congestion compared to old exam.
--- NOTE | 2019-08-24 21:08 | CT ---
EXAMINATION TYPE: CT brain cspine wo con DATE OF EXAM: 08/24/2019 COMPARISON: 08/16/2019 HISTORY: Fall injury CT DLP: 1306.2 mGycm Automated exposure control for dose reduction was used. Exam performed without contrast. There is some grade white matter hypodensity in both occipital lobes. This is also present in the lef t cerebral hemisphere. There is no mass effect nor midline shift. There is no sign of intracranial he morrhage. Calvarium is intact. There is mild straightening of the cervical spine. There is plate with screws fusing anteriorly the c ervical spine from C5 to C6. The facet joints are intact. There is no evidence of cervical spine frac ture. Skull base is intact. There is normal aeration of the temporal bones. There is no evidence of a skull fracture. IMPRESSION: Hypodensity in the occipital lobes posteriorly as well as left cerebral hemisphere suggestive of suba cute infarct not changed significantly compared to recent CT scan. No hemorrhage. Negative CT scan cervical spine. Spine unchanged compared to 08/11/2019 exam.
[2019-08-24] MEDS ORDERED: NALOXONE 0.4 MG/ML 1 ML VIAL IV PRN (21:33)
[2019-08-25] MEDS: ACETAMINOPHEN TAB 325 MG TAB PO PRN ×3 (02:04→21:50)
[2019-08-25] MEDS: LABETALOL 100 MG TAB PO SCH ×3 (02:09→21:45)
[2019-08-25] MEDS: SODIUM CHLORIDE 0.9% 1,000 ML IV SCH ×2 (02:10→11:36)
[2019-08-25] MEDS: FAMOTIDINE 20 MG TAB PO SCH ×3 (02:10→21:44)
[2019-08-25] MEDS: LEVOTHYROXINE 50 MCG TAB PO SCH (10:28)
[2019-08-25] MEDS: NICOTINE 7MG/24HR PATCH TRANSDERM SCH (10:28)
[2019-08-25] MEDS: CITALOPRAM HYDROBROMIDE 20 MG TAB PO SCH (10:29)
[2019-08-25] MEDS: LITHIUM CARBONATE 300 MG PO SCH (10:49)
[2019-08-25] MEDS: ALBUTEROL NEBULIZED 2.5 MG/3 ML INHALATION PRN ×3 (11:37→20:28)
--- NOTE | 2019-08-25 11:59 | P.HPIM ---
History of Present Illness This is a pleasant 64 years old female with past medical history of fibromyalgia, hypertension, seizure disorder, sleep apnea on CPAP/BiPAP, history of aspirin abuse, chronic pain and 3 weeks ago she was in the hospital for aspirin overdose went into kidney failure and dialysis was initiated in the ICU, just psych history of anxiety, bipolar, PTSD and antisocial personality disorder and borderline personality disorder. Cigarette smoker. She is a patient of Dr. Durham. Apparently she was in the hospital about 3 weeks ago for aspirin overdose needed hemodialysis in the ICU, then needed to be admitted to the psych unit where there was some concern regarding her speech and acute stroke was suspected on CAT scan of however MRI of the brain showed occlusion of the ventricles, with encephalopathy and edema patient was transferred to the [facility] for neurosurgical evaluation, patient was discharged from the hospital yesterday back to home and usually she lives with her son and her ex-, her ex-husb and is hospitalized currently for hip fracture and her son referred her to this hospital because he thinks patient needs to be admitted to the psych unit for mental health problem. As per family and emergency room patient continued to be in and outs in her mentation. Patient herself states that she was a little confused yesterday however today she is fully awake and oriented to time place and person, she is complaining of from urgency and difficult to Pee with dysuria Patient could benefit from neck pain from recent fall She denies smoking, alcohol or illicit drugs Vitals are stable. Left showing mild leukocytosis of 11.8 K, INR 1.0. Electrolytes and creatinine are normal, glucose 119, liver enzymes slightly elevated with AST 69 and ALT 77. Urinalysis is suspicious for infection EKG showing normal sinus rhythm at [address]-T changes, QTC is [address], no acute process by radiologist. Chest x-ray: No acute process In the emergency room patient received Rocephin and Tylenol Review of Systems CONSTITUTIONAL: No fever, no malaise, no fatigue. HEENT: No recent visual problems or hearing problems. Denied any sore throat. CARDIOVASCULAR: No orthopnea, PND, no palpitations, no syncope. PULMONARY: No shortness of breath, no cough, no hemoptysis. GASTROINTESTINAL: No diarrhea, no nausea, no vomiting, no abdominal pain. Nor moactive bowel sounds. NEUROLOGICAL: No headaches, no weakness, no numbness. HEMATOLOGICAL: Denies any bleeding or petechiae. GENITOURINARY: Denies hematuria MUSCULOSKELETAL/RHEUMATOLOGICAL: Denies any joint pain, swelling, or any muscle pain. ENDOCRINE: Denies any polyuria or polydipsia. Past Medical History Past Medical History: COPD, Fibromyalgia, Hypertension, Seizure Disorder, Sleep Apnea/CPAP/BIPAP Additional Past Medical History / Comment(s): bipolar; borderline personality; antisocial; eating disorder, PTSD, chronic aspirin user - 4-8 tablets a day - about 40 years, chronic pain. 3 weeks ago in for aspirin overdose accidental- ended up going into kidney failure and having to have dialysis in ICU, went [facility] and started having seizures and Hypertensive emergency,. Diagnosed with PRES encephalopathy at [facility] History of Any Multi-Drug Resistant Organisms: MRSA Date of last positivie culture/infection: 2004 MDRO Source:: unknown Past Surgical History: Back Surgery Additional Past Surgical History / Comment(s): neck surgery Past Anesthesia/Blood Transfusion Reactions: No Reported Reaction Past Psychological History: Anxiety, Bipolar, Depression, PTSD Additional Psychological History / Comment(s): borderline personality; antisocial disorder Smoking Status: Current every day smoker Past Alcohol Use History: None Reported Past Drug Use History: None Reported - Past Family History Sister(s) Family Medical History: Cancer, Renal Disease Additional Family Medical History / Comment(s): breast cancer, kidney cancer Medications and Allergies Home Medications Medication Instructions Recorded Confirmed Type Ergocalciferol (Vitamin D2) 50,000 unit PO Q7D 11/25/17 08/25/19 History [Vitamin D2] QUEtiapine [SEROquel] 800 mg PO HS 11/25/17 08/24/19 History Albuterol Nebulized [Ventolin 2.5 mg INHALATION RT-QID PRN 08/11/19 08/24/19 History Nebulized] Albuterol Sulfate [Ventolin HFA] 1 - 2 puff INHALATION RT-Q4H PRN 08/11/19 08/24/19 History Citalopram Hydrobromide [CeleXA] 40 mg PO DAILY 08/11/19 08/24/19 History Levothyroxine Sodium [Synthroid] 50 mcg PO DAILY 08/11/19 08/25/19 History Tenino Carbonate [Tenino 300 mg PO QAM 08/11/19 08/24/19 History Carbonate ER] Tenino Carbonate [Tenino 450 mg PO HS 08/11/19 08/25/19 History Carbonate ER] Famotidine [Pepcid] 20 mg PO BID #30 tablet 08/13/19 08/24/19 Rx Meloxicam [Qmiiz Odt] 15 mg PO DAILY PRN #30 tab.rapdis 08/13/19 08/24/19 Rx Morphine Sulfate Ir [MSIR] 30 mg PO BID #0 08/13/19 08/25/19 Rx Atorvastatin [Lipitor] 80 mg PO HS 08/25/19 08/25/19 History Labetalol [Trandate] 100 mg PO BID 08/25/19 08/25/19 History Nicotine 7Mg/24Hr Patch [Habitrol] 7 mg TRANSDERM DAILY 08/25/19 08/25/19 History Allergies Allergy/AdvReac Type Severity Reaction Status Date / Time latex Allergy Unknown Rash/Hives Verified 08/24/19 22:05 Physical Exam Vitals: Vital Signs Temp Pulse Pulse Resp BP BP Pulse Ox 08/25/19 11:15 99.4 F 72 16 152/76 95 08/25/19 05:52 98.9 F 79 16 114/72 95 08/24/19 23:45 98.4 F 74 16 146/79 94 L 08/24/19 22:30 78 16 121/79 99 08/24/19 19:30 98.9 F 81 18 119/78 99 08/24/19 17:17 100.5 F H 88 18 126/77 96 Intake and Output 08/24/19 08/25/19 08/25/19 22:59 06:59 14:59 Intake Total 425 Balance 425 Intake: Intake, IV Titration 425 Amount Sodium Chloride 0.9% 1, 425 000 ml @ 75 mls/hr IV . [id number] [facility] Rx#:[id number] Other: Voiding Method Bedside Commode Bedside Commode # Voids 4 2 Weight 86.183 kg GENERAL: The patient is alert and oriented x3, not in any acute distress. Well developed, well nourished. HEENT: Pupils are round and equally reacting to light. EOMI. No scleral icterus. No conjunctival pallor. Normocephalic, atraumatic. No pharyngeal erythema. No thyromegaly. CARDIOVASCULAR: S1 and S2 present. No murmurs, rubs, or gallops. PULMONARY: Chest is clear to auscultation, no wheezing or crackles. -ABDOMEN: Soft, suprapubic tenderness, nondistended, normoactive bowel sounds. No palpable organomegaly. MUSCULOSKELETAL: No joint swelling or deformity. EXTREMITIES: No cyanosis, clubbing, or pedal edema. NEUROLOGICAL: Gross neurological examination did not reveal any focal deficits. SKIN: No rashes. No petechiae Results CBC & Chem 7: 08/24/19 19:00 08/24/19 19:00 Labs: Abnormal Lab Results - Last 24 Hours (Table) 08/24/19 08/24/19 08/24/19 Range/Units 19:00 19:00 19:00 WBC 11.8 H (3.8-10.6) k/uL Neutrophils # 8.7 H (1.3-7.7) k/uL Chloride 109 H (98-107) mmol/L Carbon Dioxide 20 L (22-30) mmol/L Glucose 119 H (74-99) mg/dL POC Glucose (mg/dL) (75-99) mg/dL AST 69 H (14-36) U/L ALT 77 H (4-34) U/L Alkaline Phosphatase 138 H (38-126) U/L Urine Appearance Cloudy H (Clear) Urine Protein Trace H (Negative) Urine Nitrite Positive H (Negative) Ur Leukocyte Esterase Large H (Negative) Urine RBC 7 H (0-5) /hpf Urine WBC 67 H (0-5) /hpf Amorphous Sediment Rare H (None) /hpf Urine Bacteria Many H (None) /hpf Urine Mucus Rare H (None) /hpf Urine Opiates Screen Detected H (NotDetected) U Tricyclic Antidepress Detected H (NotDetected) 08/24/19 Range/Units 19:14 WBC (3.8-10.6) k/uL Neutrophils # (1.3-7.7) k/uL Chloride (98-107) mmol/L Carbon Dioxide (22-30) mmol/L Glucose (74-99) mg/dL POC Glucose (mg/dL) 120 H (75-99) mg/dL AST (14-36) U/L ALT (4-34) U/L Alkaline Phosphatase (38-126) U/L Urine Appearance (Clear) Urine Protein (Negative) Urine Nitrite (Negative) Ur Leukocyte Esterase (Negative) Urine RBC (0-5) /hpf Urine WBC (0-5) /hpf Amorphous Sediment (None) /hpf Urine Bacteria (None) /hpf Urine Mucus (None) /hpf Urine Opiates Screen (NotDetected) U Tricyclic Antidepress (NotDetected) Thrombosis Risk Factor Assmnt - Choose All That Apply Any of the Below Risk Factors Present?: Yes Each Factor Represents 1 point: Abnormal pulmonary function (COPD), Obesity (BMI >25) Other Risk Factors: Yes Each Risk Factor Represents 2 Points: Age 61-74 years Other congenital or acquired thrombophilia - If yes, enter type in comment: No Thrombosis Risk Factor Assessment Total Risk Factor Score: 4 Thrombosis Risk Factor Assessment Level: Moderate Risk Assessment and Plan Assessment: Acute urinary tract infection Altered mental status, mostly metabolic encephalopathy secondary to UTI. Rule out intracranial lesion Bipolar, anxiety and PTSD Neck pain and back pain, chronic with recent worsening of from full. Recent history of intracranial lesion in fourth ventricle, suspected stroke and she was referred to [facility] weeks ago History of aspirin abuse Hypertension Sleep apnea on CPAP/BiPAP Fibromyalgia Plan: This is a pleasant 64 years old female presents with altered mental status and psych problems. UTI. Continue monitoring the patient for now. Last neurologist for psychiatrist to evaluate the patient. Continue with antibiotics and follow-up urine culture. Lidocaine patch Labs and medication were reviewed.. Continue same treatment. Continue with symptomatic treatment. Resume home medication. Monitor lytes and vitals. DVT and GI prophylaxis. Further recommendations of the clinical course of the patient DVT prophylaxis: Subcutaneous heparin GI Prophylaxis: Pepcid PT/OT: Pending Prognosis is guarded
[2019-08-25] MEDS: LIDOCAINE 5% PATCH TOPICAL SCH ×2 (15:59→16:00)
--- NOTE | 2019-08-25 17:37 | EEG ---
ELECTROENCEPHALOGRAM REPORT DATE OF SERVICE: 08/25/2019 PREAMBLE: This is a 64-year-old female who has episodes of altered mental status. Patient recently has history of seizures. This study is performed to evaluate for any epileptiform activity. EEG FINDINGS: This is a 21-channel routine EEG recording in a patient utilizing 10-20 international system with referential and bipolar montages. The background consists of well- developed but poorly regulated, mixed frequencies of 6-7 hertz theta mixed with some dysrhythmic generalized mixed theta and delta activity. The background seems to be slightly reactive to eye opening and closing. The background seemed to be reactive to some flash frequencies with photic stimulation. Intermittent generalized rhythmic delta activity is seen, which at times appears to be frontally predominant, suggestive of FIRDA. There is a lot of myogenic and movement artifact seen during most of the study, precluding difficulty identifying underlying epileptiform activity, if present. Different stages of sleep were not seen. No definitive epileptiform activity was seen. IMPRESSION: This is an abnormal EEG due to: 1. Background slowing and disorganization, suggestive of generalized cerebral dysfunction as can be seen with toxic metabolic encephalopathy or due to diffuse structural brain abnormality. 2. Frontal intermittent rhythmic delta activity, as well as intermittent generalized rhythmic delta activity suggestive of encephalopathy, and may suggest convulsive tendency. No definitive epileptiform activity was seen. 3. The study was however technically limited due to significant myogenic and movement artifacts during most of the study. 4. When compared to the EEG from 08/16/2019, there is remarkable improvement related to epileptiform activity. MMODL / IJN: [id number] / PEARL
--- NOTE | 2019-08-25 18:02 | P.CNNES ---
History of Present Illness Consult date: 08/25/19 Requesting physician: Kash Rodriguez Reason for Consult: Altered mental status History of Present Illness: Patient is a 64-year-old female, with history of bipolar disorder, presented to the ER with chief complaints of altered mental status. Patient was recently admitted to the hospital about 2 weeks ago for accidental salicylate overdose. Patient was found to have abnormal brain MRI, CVA versus PRES syndrome. Patient was transferred to [facility]. Patient was just discharged yesterday from the hospital. While patient was being brought home, patient was "in and out". This prompted re-admission to this hospital. Patient's vital signs on arrival was 126/77, pulse rate 88 temperature 100.5. Patient underwent Chest x-ray showed bilateral subsegmental atelectasis. Normal heart. There is improved inspiration, and decrease in bronchial congestion compared to old exam. EKG shows normal sinus rhythm, incomplete right bundle branch block. Computed tomography scan of head showed hypodensity in the occipital lobes posteriorly as well as left cerebral hemispheres, suggestive of subacute infarct, not changed significantly compared to recent computed tomography scan. CT of the cervical spine was negative. There is plate with screws fusing anteriorly the cervical spine from C5 to C6. No evidence of cervical spine fracture. Patient's blood test shows WBC 11.8 hemoglobin 12.5, platelets 319. PT/PTT is normal. Electrolytes are normal, renal functions normal, AST is 69, ALT 77. Troponin negative. UA showed positive nitrite, large amount of leukocyte Estrace, 67 WBC, many bacteria, urine drug screen positive for opiates and tricyclic antidepressant. Patient's TSH is elevated 7.090 on 08/15/2019. Total cholesterol 195, LDL 103, HDL 58 and triglycerides 171. Ammonia normal <9 on 08/11/2019. I spoke to patient's son, who provided further details. He states that patient for couple years have been having episodes of bipolar disorder/delirium, when she is not lucid, occurring about once a month, that would last for 3-5 days. During this time, she cannot walk, cannot understand simple words and her head trembles. Patient had a similar episode started on 08/09/2019. It slightly got worse on and was definitely worse on 08/11/2019. Patient on 08/11/2019 suffered from a fall in the living room. Patient struck her head on hard surfaces. Patient was diagnosed with aspirin toxicity. Patient's son further states that she does have chronic headaches and she does take aspirin about 6-8 per day. She probably took some extra aspirin because of her her head was hurting. Patient was given dialysis, and then stabilized and then transferred to mental health unit. Patient was admitted to psych unit but then developed altered mental status and dysarthria. Her blood pressure was 220 systolic range. Patient had 3 witnessed seizures. Patient was transferred to inpatient, and was seen by Dr. Moulton on 08/16/2019. Her MRI reading is as below. Patient was transferred to [facility]. Patient was seen by neurologist, and diagnosed with PRES syndrome. Patient was in ICU for a few days, then to the regular floor. Patient was just discharged home yesterday although according to patient's son, she was not feeling better. Patient's mentation got worse after she was discharged, therefore patient's daughter brought her back to this hospital the same day, yesterday. Patient had an EEG on 08/16/2019, which revealed frequent electrographic seizures with right central parietal onset, and diffuse background slowing. This EEG is consistent with interictal expression of partial epilepsy, this places the patient at increased risk for partial and secondary generalized seizures. These findings are superimposed on a background which supports of severe diffuse encephalopathy. Her MRI of the brain with and without contrast on 08/17/2019 showed diffuse abnormal signal throughout both bilateral cerebellum and cerebrum. There is mass effect and mild compression of the lateral margin of the fourth ventricle on the left. There are numerous punctate areas of enhancement involving the cerebellum and supratentorially. Effusion demonstrates only faint high signal in the region on multiple levels. Suspect that there is component of ischemic change in the left occipital lobe and medial right temporal lobe. Differential diagnosis would include PRES, metabolic, although on new plastic process given the enhancement cannot be excluded. Subacute infarcts in the differential diagnosis. Also includes ADEM, PML. C erebellar tonsils are low-lying. At present patient complains of headache which she rates 9/10 involving back of the head and some in the front of the head. It is a pounding headache, has been present since her initial admission on 08/16/2019. Patient has decreased appeti te. Her vision is fuzzy, blurred vision since the fall. Patient says her memory was always "messed up", but has got worse since this fall. She has difficulty walking to the bathroom. Has problem with the vision, memory, not able to communicate her thoughts patient complains of numbness of the right leg. No pain in the leg. Review of Systems Please refer to HPI in detail. All other review of systems unremarkable. Patient denies chest pain shortness of breath wheezing or cough, denies about pain nausea vomiting diarrhea. Past Medical History Past Medical History: COPD, Fibromyalgia, Hypertension, Seizure Disorder, Sleep Apnea/CPAP/BIPAP Additional Past Medical History / Comment(s): bipolar; borderline personality; antisocial; eating disorder, PTSD, chronic aspirin user - 4-8 tablets a day - about 40 years, chronic pain. 3 weeks ago in for aspirin overdose accidental- ended up going into kidney failure and having to have dialysis in ICU, [facility] and started having seizures and Hypertensive emergency,. Diagnosed with PRES encephalopathy at [facility] History of Any Multi-Drug Resistant Organisms: MRSA Date of last positivie culture/infection: 2004 MDRO Source:: unknown Past Surgical History: Back Surgery Additional Past Surgical History / Comment(s): neck surgery Past Anesthesia/Blood Transfusion Reactions: No Reported Reaction Past Psychological History: Anxiety, Bipolar, Depression, PTSD Additional Psychological History / Comment(s): borderline personality; antisocial disorder Smoking Status: Current every day smoker Past Alcohol Use History: None Reported Past Drug Use History: None Reported - Past Family History Sister(s) Family Medical History: Cancer, Renal Disease Additional Family Medical History / Comment(s): breast cancer, kidney cancer Medications and Allergies Home Medications Medication Instructions Recorded Confirmed Type Ergocalciferol (Vitamin D2) 50,000 unit PO Q7D 11/25/17 08/25/19 History [Vitamin D2] QUEtiapine [SEROquel] 800 mg PO HS 11/25/17 08/24/19 History Albuterol Nebulized [Ventolin 2.5 mg INHALATION RT-QID PRN 08/11/19 08/24/19 History Nebulized] Albuterol Sulfate [Ventolin HFA] 1 - 2 puff INHALATION RT-Q4H PRN 08/11/19 08/24/19 History Citalopram Hydrobromide [CeleXA] 40 mg PO DAILY 08/11/19 08/24/19 History Levothyroxine Sodium [Synthroid] 50 mcg PO DAILY 08/11/19 08/25/19 History [place] Carbonate [[place] 300 mg PO QAM 08/11/19 08/24/19 History Carbonate ER] [place] Carbonate [[place] 450 mg PO HS 08/11/19 08/25/19 History Carbonate ER] Famotidine [Pepcid] 20 mg PO BID #30 tablet 08/13/19 08/24/19 Rx Meloxicam [Qmiiz Odt] 15 mg PO DAILY PRN #30 tab.rapdis 08/13/19 08/24/19 Rx Morphine Sulfate Ir [MSIR] 30 mg PO BID #0 08/13/19 08/25/19 Rx Atorvastatin [Lipitor] 80 mg PO HS 08/25/19 08/25/19 History Labetalol [Trandate] 100 mg PO BID 08/25/19 08/25/19 History Nicotine 7Mg/24Hr Patch [Habitrol] 7 mg TRANSDERM DAILY 08/25/19 08/25/19 History Allergies Allergy/AdvReac Type Severity Reaction Status Date / Time latex Allergy Unknown Rash/Hives Verified 08/24/19 22:05 Physical Examination - Vital Signs Vital Signs: Vital Signs Temp Pulse Pulse Resp BP BP Pulse Ox 08/25/19 11:48 97 08/25/19 11:37 94 08/25/19 11:15 99.4 F 72 16 152/76 95 08/25/19 05:52 98.9 F 79 16 114/72 95 08/24/19 23:45 98.4 F 74 16 146/79 94 L 08/24/19 22:30 78 16 121/79 99 08/24/19 19:30 98.9 F 81 18 119/78 99 08/24/19 17:17 100.5 F H 88 18 126/77 96 Intake and Output 08/24/19 08/25/19 08/25/19 22:59 06:59 14:59 Intake Total 425 Output Total 254 Balance 425 -254 Intake: Intake, IV Titration 425 Amount Sodium Chloride 0.9% 1, 425 000 ml @ 75 mls/hr IV . [id number] Rx#:[id number] Output: Post Void Residual 254 Other: Voiding Method Bedside Commode Bedside Commode # Voids 4 1 Weight 86.183 kg On examination patient is a late middle aged female, who is laying comfortably in the bed. Patient knows that it is 08/25/2019 and that she lives in [facility]. She knows that she is in the hospital but does not know the name. Patient knows name of the current president. Patient lives with her son. On cranial nerve exam showed pupils are round and reactive to light, visual kaminski appears full on confrontation. Patient states that she has some problems with visual field on the right. Extraocular muscles appears intact. Patient has difficulty keeping her eyes open and mostly closes it. Face is symmetric, tongue protrudes the midline. Palatal elevation and sensation normal. Hearing and shoulder shrug normal. On muscle strength testing there is no pronator drift. Patient did not cooperate with muscle strength testing of upper ext remities. She did not give effort more than 4-4+ bilaterally. Strength at the ankles are normal. Hip flexion also appears normal. Deep tendon reflexes are 1+ in the upper limbs, 2+ in the lower limbs and plantars are downgoing bilaterally. Sensory touch is equal. No obvious ataxia for [id number] testing. Tone and bulk of muscles normal. There is no obvious bruit, S1 and S2 audible. Chest is clear. Abdomen soft nontender. Results - Laboratory Findings CBC and BMP: 08/24/19 19:00 08/24/19 19:00 Abnormal Lab Findings: Abnormal Labs 08/24/19 08/24/19 08/24/19 19:00 19:00 19:00 WBC 11.8 H Neutrophils # 8.7 H Chloride 109 H Carbon Dioxide 20 L Glucose 119 H POC Glucose (mg/dL) AST 69 H ALT 77 H Alkaline Phosphatase 138 H Urine Appearance Cloudy H Urine Protein Trace H Urine Nitrite Positive H Ur Leukocyte Esterase Large H Urine RBC 7 H Urine WBC 67 H Amorphous Sediment Rare H Urine Bacteria Many H Urine Mucus Rare H Urine Opiates Screen Detected H U Tricyclic Antidepress Detected H 08/24/19 19:14 WBC Neutrophils # Chloride Carbon Dioxide Glucose POC Glucose (mg/dL) 120 H AST ALT Alkaline Phosphatase Urine Appearance Urine Protein Urine Nitrite Ur Leukocyte Esterase Urine RBC Urine WBC Amorphous Sediment Urine Bacteria Urine Mucus Urine Opiates Screen U Tricyclic Antidepress Assessment and Plan Assessment: * 64-year-old female who has recent history of PRES on 08/16/2019, associated with new onset seizures/status epilepticus, and abnormal EEG. * Recurrent episodes of altered mental status (monthly for last couple years), more frequent lately. Rule out complex partial seizures. * Bipolar disorder. * Hypertension * Tobacco user. Plan: * Patient underwent stat EEG today. It revealed background slowing and disorgan ization, suggestive of generalized cerebral dysfunction as can be seen with toxic metabolic encephalopathy, or due to diffuse structural brain abnormality. Frontal intermittent rhythmic delta activity, as well as intermittent generalized rhythmic delta activity suggestive of encephalopathy, and may suggest convulsive tendency. No definitive epileptiform activity was seen. However study was technically limited due to significant myogenic and movement artifacts. When compared to EEG from 08/16/2019, there is remarkable improvement related to epileptiform activity. * Patient currently not on any seizure medication. Keppra could be considered, but can be associated with behavioral problems which patient already has. Patient could be placed on Trileptal or Lamictal, both are good antiepileptic medications, and also work on bipolar disorder. Lamictal will take time to titrate. Therefore we will start her on Trileptal 150 mg twice a day. After 3 days, the dose can be increased to 300 mg twice a day. Patient's son was recommended to stop medication if she gets any rash. He was also informed that patient will need monitoring of sodium level in 3 months, and then every 6 months. * I would recommend patient to follow up with neurologist locally to further titrate up the dose as tolerated. * Suggest aspirin 81 mg daily for stroke prevention. * Dr. Morrissey will be covering over the weekend.
[2019-08-25] MEDS: ASPIRIN 81 MG PO SCH (18:16)
[2019-08-25] MEDS: HEPARIN SODIUM,PORCINE 5,000 UNIT/ML 1 ML VIAL SQ SCH (21:44)
[2019-08-25] MEDS: ATORVASTATIN 80 MG TAB PO SCH (21:44)
[2019-08-25] MEDS: LITHIUM CARBONATE ER 450 MG TABLET.ER PO SCH (21:45)
[2019-08-25] MEDS: OXcarbazepine 150 MG TAB PO SCH (22:13)
[2019-08-26] MEDS: LORazepam 2 MG/ML INJ IV PRN ×3 (00:45→17:56)
[2019-08-26] MEDS: SODIUM CHLORIDE 0.9% 1,000 ML IV SCH ×2 (01:50→13:56)
[2019-08-26] MEDS: ACETAMINOPHEN TAB 325 MG TAB PO PRN ×3 (05:46→20:21)
[2019-08-26] MEDS: LEVOTHYROXINE 50 MCG TAB PO SCH (05:46)
[2019-08-26] MEDS: CITALOPRAM HYDROBROMIDE 20 MG TAB PO SCH (08:13)
[2019-08-26] MEDS: FAMOTIDINE 20 MG TAB PO SCH ×2 (08:13→21:37)
[2019-08-26] MEDS: LABETALOL 100 MG TAB PO SCH ×2 (08:13→21:37)
[2019-08-26] MEDS: HEPARIN SODIUM,PORCINE 5,000 UNIT/ML 1 ML VIAL SQ SCH ×2 (08:13→21:37)
[2019-08-26] MEDS: LIDOCAINE 5% PATCH TOPICAL SCH ×2 (08:13→08:14)
[2019-08-26] MEDS: ASPIRIN 81 MG PO SCH (08:13)
[2019-08-26] MEDS: OXcarbazepine 150 MG TAB PO SCH ×2 (08:13→21:37)
[2019-08-26] MEDS: ALBUTEROL NEBULIZED 2.5 MG/3 ML INHALATION PRN (08:25)
[2019-08-26] MEDS: LITHIUM CARBONATE 300 MG PO SCH (08:55)
[2019-08-26] MEDS: NICOTINE 7MG/24HR PATCH TRANSDERM SCH (08:56)
[2019-08-26] MEDS: MELOXICAM 7.5 MG TAB PO PRN (09:04)
[2019-08-26 10:54] LABS: Basophils % (A) 1 %; Eosinophils # (A) 0.1 k/uL (0-0.7); Eosinophils % (A) 2 %; HCT 36.9 % (34.0-46.0); HGB 11.6 gm/dL (11.4-16.0); Hypochromasia Moderate; Lymphocytes # (A) 1.6 k/uL (1.0-4.8); Lymphocytes % (A) 20 %; MCH 30.8 pg (25.0-35.0); MCHC 31.5 g/dL (31.0-37.0); MCV 97.8 fL (80.0-100.0); Mean Platelet Volume 8.8; Monocytes # (A) 0.5 k/uL (0-1.0); Monocytes % (A) 6 %; Neutrophils # (A) 5.3 k/uL (1.3-7.7); Neutrophils % (A) 68 %; Platelet Count 326 k/uL (150-450); RBC 3.77 m/uL (3.80-5.40); RDW 15.2 % (11.5-15.5); WBC 7.8 k/uL (3.8-10.6)
[2019-08-26 10:58] LABS: African American GFR (CKD) >90 (>60 ml/min/1.73 sqM); Anion Gap 4 mmol/L; Blood Urea Nitrogen 3 mg/dL (7-17); Calcium 8.9 mg/dL (8.4-10.2); Carbon Dioxide 19 mmol/L (22-30); Chloride 117 mmol/L (98-107); Glucose 125 mg/dL (74-99); Non-African American GFR(CKD) >90 (>60 ml/min/1.73 sqM); Potassium 3.8 mmol/L (3.5-5.1); Sodium 140 mmol/L (137-145)
--- NOTE | 2019-08-26 18:00 | P.CN ---
Psychiatric Consult - . Consult date: 08/26/19 Consult:: 08/26/19 17:52 IDENTIFYING DATA: 64-year-old female patient HPI: Patient is seen in psychiatric consultation on the medical floor where she was admitted for altered mental status. Per chart history she had been admitted for accidental salicylate overdose and received dialysis recently and then was transferred to the mental health unit where there was concerns of a stroke and she was transferred to [facility] where she had been discharged from yesterday. Per chart history she was presenting as "in and out" on the way home. Patient states she is feeling kind of antsy. Says she hasn't slept well last 2 nights. She says she has a urinary infection. She recounts some of the recent events including having had dialysis and having taken a fall at home recently. It sounds like with discharged recently from [facility] she was not able to care for herself and was confused. Relays that she is still grieving for a son of hers that from an accidental overdose 4 years ago. EEG showed evidence of encephalopathy, patient reports also some concern of seizure, she has been started on Trileptal PAST PSYCHIATRIC HISTORY: Patient with history of bipolar disorder, some chart notation also borderline personality disorder. Patient states she's been on Seroquel which she feels that she needs. Her dosage was 800 mg at at bedtime. It is not clear whether this medication may have been discharged recently as she is not currently on this medication. She states historically she is also on trazodone. Noted that currently she is on Celexa 40 mg daily, Lithobid 450 mines at bedtime, lithium 300 mg in the a.m. and was just started on Trileptal 150 mg twice a day. Patient states she's had a total of 2 psychiatric hospitalizations, no history of suicide attempts. PMH: Fibromyalgia, hypertension, seizure disorder, sleep apnea, chronic headaches ALLERGIES: Latex MEDICATIONS:, When necessary, Ventolin when necessary, aspirin, Lipitor, ceftriaxone, Celexa, Pepcid, heparin, Trandate, Synthroid, Lidoderm, Lithobid, Ativan when necessary, Mobic when necessary, Narcan when necessary, Habitrol patch, lithium, Trileptal CHEMICAL DEPENDENCY HISTORY: None known at this time. FAMILY PSYCHIATRIC HISTORY: None known at this time. FAMILY CHEMICAL DEPENDENCY HISTORY: None known at this time. SOCIAL HISTORY: Has a son that related to an accidental overdose and does make reference to another son. MENTAL STATUS EXAM: She is alert and cooperative with the interview. Her speech is fluent, not rapid or pressured. Her mood is described as "worked up." She denies any thoughts of harm to self or others. She is oriented to place and date. She does not display any agitation. IMPRESSIONS: Bipolar disorder by history; delirium which appears to be improved currently. PLAN: No new changes in psychotropic medications at this time. We'll continue to monitor her mood and continue to treat any possible causes of delirium. We'll further look into whether Seroquel had been discontinued recently. She h as been started on Trileptal which could provide additional mood stabilization. Psychiatry can follow up and monitor her status. I do not see any criteria for inpatient psychiatric hospitalization at this time.
[2019-08-26] MEDS: ATORVASTATIN 80 MG TAB PO SCH (21:37)
[2019-08-26] MEDS: LITHIUM CARBONATE ER 450 MG TABLET.ER PO SCH (21:37)
--- NOTE | 2019-08-26 22:28 | PN ---
PROGRESS NOTE DATE OF SERVICE: 08/26/2019 This 64-year-old woman who was admitted with acute UTI also had change in mental status. The urine culture is not available so far. The patient has history of falls and change in mental status. Patient also has significant psychiatric illness also. Neurology has seen the patient yesterday and EEG has been ordered and neurology has recommended continue the current medications. Patient also has history of PRES in September. EEG done showed multiple abnormalities. Psychiatry has also seen the patient today and recommended no treatment. No new changes in psych medications at this time. PAST MEDICAL HISTORY: Reviewed. REVIEW OF SYSTEMS: CARDIOVASCULAR SYSTEM: No angina or palpitations. RESPIRATORY: As mentioned earlier. GI: As mentioned earlier. : No dysuria or retention. NERVOUS SYSTEM: As mentioned earlier. CURRENT MEDICATIONS: Reviewed and include: 1. Tylenol p.r.n. 2. Ventolin. 3. Aspirin. 4. Lipitor. 5. Rocephin 1 g. 6. Trandate. 7. Synthroid. 8. Lidoderm. 9. Ativan. 10.Mobic. 11.Narcan. 12.Habitrol. 13.Trileptal. 14.Doses reviewed. PHYSICAL EXAM: Patient alert and oriented x2. Pulse 73. Blood pressure 151/80, respirations 16, temp 98.8, pulse ox 97% on room air. HEENT: Conjunctivae normal. Oral mucosa moist. NECK is no jugular venous distention. No carotid bruit. No lymph node enlargement. Cardiovascular system: S1, S2 muffled. RESPIRATORY: Breath sounds diminished in the bases. A few scattered rhonchi and crackles. ABDOMEN: Soft, nontender. LEGS are no edema. No swelling. NERVOUS SYSTEM: No focal deficits. LABS: WBC 7.2, hemoglobin 11.6, sodium 140, potassium 3.8 and glucose 125. UA noted. ASSESSMENT: 1. Acute urinary tract infection with sepsis, present on admission. 2. Change in mental status, acute on chronic metabolic disorder, possibly secondary to urinary tract infection. 3. History of recent PRES lesion. 4. Bipolar anxiety PTSD. 5. History of neck pain. 6. History of aspirin abuse. 7. History of overdose with aspirin and hemodialysis. 8. Hypertension. 9. Sleep apnea. 10.History of fibromyalgia. 11.Hyperchloremia. 12.Increased WBC. 13.Elevated AST/ALT. RECOMMENDATIONS AND DISCUSSION: Recommend to continue current management and continue the antibiotics, cultures. Otherwise, closely follow with Neurology, Psychiatry and PT/OT evaluation, possible ECF rehab. public health social worker to evaluate the home situation. Guarded prognosis. Further recommendations to follow. MMODL / IJN: [id number] /
[2019-08-27] MEDS: LORazepam 2 MG/ML INJ IV PRN ×3 (01:38→19:33)
[2019-08-27] MEDS: LEVOTHYROXINE 50 MCG TAB PO SCH (05:01)
[2019-08-27] MEDS: ACETAMINOPHEN TAB 325 MG TAB PO PRN ×2 (05:01→13:18)
[2019-08-27] MEDS: SODIUM CHLORIDE 0.9% 1,000 ML IV SCH ×3 (05:02→21:19)
[2019-08-27] MEDS: ALBUTEROL NEBULIZED 2.5 MG/3 ML INHALATION PRN (07:47)
[2019-08-27] MEDS: ASPIRIN 81 MG PO SCH (07:47)
[2019-08-27] MEDS: LABETALOL 100 MG TAB PO SCH ×2 (07:48→21:15)
[2019-08-27] MEDS: CITALOPRAM HYDROBROMIDE 20 MG TAB PO SCH (07:48)
[2019-08-27] MEDS: HEPARIN SODIUM,PORCINE 5,000 UNIT/ML 1 ML VIAL SQ SCH ×2 (07:48→20:48)
[2019-08-27] MEDS: FAMOTIDINE 20 MG TAB PO SCH ×2 (07:48→20:49)
[2019-08-27] MEDS: LIDOCAINE 5% PATCH TOPICAL SCH ×4 (07:49→11:13)
[2019-08-27] MEDS: MORPHINE SULFATE IR 15 MG TABLET PO SCH ×2 (07:51→19:34)
[2019-08-27] MEDS: OXcarbazepine 150 MG TAB PO SCH ×2 (07:54→21:15)
[2019-08-27] MEDS: NICOTINE 7MG/24HR PATCH TRANSDERM SCH (07:54)
[2019-08-27] MEDS: LITHIUM CARBONATE 300 MG PO SCH (08:10)
[2019-08-27] MEDS ORDERED: Acetaminophen-Codeine 300-30mg TAB PO PRN (12:23)
[2019-08-27] MEDS: MELOXICAM 7.5 MG TAB PO PRN (13:18)
--- NOTE | 2019-08-27 14:26 | P.PN ---
Progress Note - Text Progress Note Date: 08/27/19 Interval history: Patient is seen today in psychiatric follow-up. She reports she didn't sleep last night again. She describes feeling anxious today. She also describes that she's been seeing strings. It sounds like she has had this symptom when she's been off of her Seroquel before. She does feel like she needs to be back on her Seroquel. Mental status exam: She is alert and cooperative with the interview. Her speech is fluent, not rapid or pressured. Her mood she described as anxious. She does describe seeing strings. She does not verbalize any auditory hallucinations. She does not verbalize any thoughts of harm to self others. She does not display any agitation. Plan: We'll reinitiate Seroquel 200 mg at at bedtime to see if this can help with maintaining mood stability as well as treating any psychosis like symptoms and will likely help her overall level of anxiety. Psychiatry continue to follow up. I do not see any inpatient psychiatric hospitalization criteria.
[2019-08-27] MEDS: ATORVASTATIN 80 MG TAB PO SCH (20:48)
[2019-08-27] MEDS: QUEtiapine 200 MG TAB PO SCH (20:48)
[2019-08-27] MEDS ORDERED: QUEtiapine 400 MG TAB PO SCH (21:00)
[2019-08-27] MEDS: LITHIUM CARBONATE ER 450 MG TABLET.ER PO SCH (21:15)
--- NOTE | 2019-08-28 02:42 | PN ---
PROGRESS NOTE DATE OF SERVICE: 08/27/2019 This 64-year-old woman who was admitted with UTI also had some change in mental status. Patient also had recent PRES lesion also. Patient also multiple medical issues including chronic pain issues for which Neurology is following the patient closely. The patient also complained of severe headache at this time. PAST MEDICAL HISTORY: Reviewed. REVIEW OF SYSTEMS: CARDIOVASCULAR SYSTEM: No angina, palpitations. RESPIRATORY SYSTEM: As mentioned earlier. GI: No nausea. : No dysuria. NERVOUS SYSTEM: As mentioned earlier. CURRENT MEDICATIONS: Current medications are reviewed and include: Tylenol Tylenol No.3, aspirin, Lipitor, Rocephin, Celexa, Pepcid, heparin, Trandate, Synthroid, Lidoderm and Mobic, MS- IR, Narcan, Habitrol 7, lithium, Trileptal, Seroquel. PHYSICAL EXAMINATION: Patient is alert, oriented x3. Pulse 66, blood pressure 158/78, respirations 16, temperature 98.5, pulse ox 96% on room air. HEENT: Conjunctivae normal. NECK: No jugular venous distention. CARDIOVASCULAR: S1, S2 muffled. RESPIRATORY: Breath sounds diminished at the bases. No rhonchi, no crackles. ABDOMEN: Soft, nontender. LEGS: No edema, no swelling. NERVOUS SYSTEM: No focal deficits. LABS: WBC 7.8, hemoglobin 11.6, sodium 140, potassium 3.8, and CO2 is 19. UA noted. The culture shows cultures are negative. ASSESSMENT: 1. Acute urinary tract infection with sepsis, present on admission. 2. Change in mental status acute on chronic metabolic encephalopathy secondary to urinary tract infection. 3. History of recent PRES lesion .. 4. Bipolar, anxiety, posttraumatic stress disorder. 5. History of neck pain. 6. History of aspirin abuse. 7. History of overdose with aspirin and hemodialysis previously. 8. Hypertension. 9. Sleep apnea. 10.History of fibromyalgia. 11.Hypochloremia. 12.Increased WBC. 13.Elevated AST ALT. RECOMMENDATIONS AND DISCUSSION: Recommend to continue current medications, continue symptomatic treatment. Otherwise, at this time continue with antibiotics. We will restart the nighttime medications as well as chronic morphine for the chronic pain. Otherwise, I would also recommend p.r.n. Tylenol No.3 for the headaches. Guarded prognosis because of multiple complex medical issues. Further recommendations to follow. MMODL / IJN: [id number] / MTDD
[2019-08-28] MEDS: ACETAMINOPHEN TAB 325 MG TAB PO PRN ×2 (04:47→15:38)
[2019-08-28] MEDS: LEVOTHYROXINE 50 MCG TAB PO SCH (05:44)
[2019-08-28] MEDS: LITHIUM CARBONATE 300 MG PO SCH (08:44)
[2019-08-28] MEDS: MORPHINE SULFATE IR 15 MG TABLET PO SCH ×2 (08:44→20:31)
[2019-08-28] MEDS: ASPIRIN 81 MG PO SCH (08:44)
[2019-08-28] MEDS: CITALOPRAM HYDROBROMIDE 20 MG TAB PO SCH (08:44)
[2019-08-28] MEDS: HEPARIN SODIUM,PORCINE 5,000 UNIT/ML 1 ML VIAL SQ SCH ×2 (08:44→20:30)
[2019-08-28] MEDS: FAMOTIDINE 20 MG TAB PO SCH ×2 (08:44→20:30)
[2019-08-28] MEDS: NICOTINE 7MG/24HR PATCH TRANSDERM SCH ×2 (09:04→09:20)
[2019-08-28] MEDS: LIDOCAINE 5% PATCH TOPICAL SCH ×2 (09:05→13:18)
[2019-08-28] MEDS: OXcarbazepine 150 MG TAB PO SCH ×2 (09:06→20:31)
[2019-08-28] MEDS: LORazepam 2 MG/ML INJ IV PRN ×2 (09:06→19:18)
[2019-08-28] MEDS: LABETALOL 100 MG TAB PO SCH ×2 (09:06→20:31)
[2019-08-28 11:54] LABS: ALT 45 U/L (4-34); AST 37 U/L (14-36); African American GFR (CKD) >90 (>60 ml/min/1.73 sqM); Albumin 3.3 g/dL (3.5-5.0); Alkaline Phosphatase 96 U/L (38-126); Anion Gap 6 mmol/L; Blood Urea Nitrogen 3 mg/dL (7-17); Carbon Dioxide 19 mmol/L (22-30); Chloride 115 mmol/L (98-107); Glucose 113 mg/dL (74-99); Non-African American GFR(CKD) >90 (>60 ml/min/1.73 sqM); Potassium 3.5 mmol/L (3.5-5.1); Sodium 140 mmol/L (137-145); Total Bilirubin 0.2 mg/dL (0.2-1.3); Total Protein 5.9 g/dL (6.3-8.2)
[2019-08-28 19:02] LABS: ALT 44 U/L (4-34); AST 37 U/L (14-36); African American GFR (CKD) >90 (>60 ml/min/1.73 sqM); Albumin 3.3 g/dL (3.5-5.0); Alkaline Phosphatase 98 U/L (38-126); Anion Gap 6 mmol/L; Blood Urea Nitrogen 4 mg/dL (7-17); Calcium 9.2 mg/dL (8.4-10.2); Carbon Dioxide 19 mmol/L (22-30); Chloride 112 mmol/L (98-107); Glucose 100 mg/dL (74-99); Non-African American GFR(CKD) >90 (>60 ml/min/1.73 sqM); Potassium 3.4 mmol/L (3.5-5.1); Sodium 137 mmol/L (137-145); Total Bilirubin 0.2 mg/dL (0.2-1.3); Total Protein 5.8 g/dL (6.3-8.2)
--- NOTE | 2019-08-28 20:04 | PN ---
PROGRESS NOTE DATE OF SERVICE: 08/28/2019 This 64-year-old woman who was admitted with multiple medical issues, including UTI and change in mental status, is being closely monitored. Patient is complaining of chronic pain syndrome and the patient is slightly drowsy. The patient is able to ambulate; does not qualify for short-term rehab per health and social care teacher. No chest pain. No palpitation. PHYSICAL EXAMINATION: Alert and oriented x2. Pulse 58, blood pressure 134/76, respiration 17, temperature 98.4, pulse ox 97% on room air. HEENT: Conjunctivae normal. NECK: No jugular venous distention. CARDIOVASCULAR SYSTEM: S1, S2 muffled. RESPIRATORY SYSTEM: Breath sounds diminished at the bases. A few scattered rhonchi. No crackles. ABDOMEN: Soft, non-tender. LEGS: No edema. No swelling. NERVOUS SYSTEM: Diffusely weak. LABS: WBC 7.6, hemoglobin 11.6 and potassium 3.5. Chloride is 115, AST and ALT are 37 and 45. The cultures are negative so far. ASSESSMENT: 1. Acute urinary tract infection with sepsis, present on admission. 2. Change in mental status with acute on chronic metabolic encephalopathy secondary to urinary tract infection. 3. History of recent PRES lesions. 4. Bipolar, anxiety, posttraumatic stress disorder. 5. History of neck pain. 6. History of aspirin abuse. 7. History of overdose with aspirin and hemodialysis previously. 8. Hypertension. 9. Sleep apnea. 10.History of fibromyalgia. 11.Hyperchloremia. 12.Increased white count. 13.Elevated AST, ALT. 14.FULL CODE. RECOMMENDATIONS AND DISCUSSION: In this 64-year-old woman who presented with multiple complex medical issues, we will monitor the patient closely, continue the current medications, continue with symptomatic treatment. I recommend repeat labs tomorrow. Increased ambulation. PT/OT evaluation. Possible discharge within the next 24-48 hours. The cultures are negative, as mentioned earlier. Further recommendations to follow. MMODL / IJN: [id number] /
[2019-08-28] MEDS: SODIUM CHLORIDE 0.9% 1,000 ML IV SCH (20:29)
[2019-08-28] MEDS: QUEtiapine 200 MG TAB PO SCH (20:30)
[2019-08-28] MEDS: LITHIUM CARBONATE ER 450 MG TABLET.ER PO SCH (20:30)
[2019-08-28] MEDS: ATORVASTATIN 80 MG TAB PO SCH (20:30)
[2019-08-29] MEDS: LEVOTHYROXINE 50 MCG TAB PO SCH (05:35)
[2019-08-29] MEDS: ACETAMINOPHEN TAB 325 MG TAB PO PRN ×2 (05:35→12:47)
[2019-08-29 06:14] VITALS: PULSE 67
[2019-08-29] MEDS: SODIUM CHLORIDE 0.9% 1,000 ML IV SCH (08:25)
[2019-08-29 09:02] LABS: Basophils % (A) 0 %; Eosinophils # (A) 0.2 k/uL (0-0.7); Eosinophils % (A) 3 %; HCT 35.7 % (34.0-46.0); HGB 11.4 gm/dL (11.4-16.0); Hypochromasia Slight; Lymphocytes # (A) 1.7 k/uL (1.0-4.8); Lymphocytes % (A) 22 %; MCH 30.4 pg (25.0-35.0); MCV 94.8 fL (80.0-100.0); Mean Platelet Volume 8.4; Monocytes # (A) 0.3 k/uL (0-1.0); Monocytes % (A) 4 %; Neutrophils # (A) 5.3 k/uL (1.3-7.7); Neutrophils % (A) 69 %; Platelet Count 260 k/uL (150-450); RBC 3.76 m/uL (3.80-5.40); RDW 15.5 % (11.5-15.5); WBC 7.7 k/uL (3.8-10.6)
[2019-08-29] MEDS: ASPIRIN 81 MG PO SCH (09:09)
[2019-08-29] MEDS: HEPARIN SODIUM,PORCINE 5,000 UNIT/ML 1 ML VIAL SQ SCH (09:11)
[2019-08-29] MEDS: LABETALOL 100 MG TAB PO SCH (09:11)
[2019-08-29] MEDS: FAMOTIDINE 20 MG TAB PO SCH (09:11)
[2019-08-29] MEDS: LIDOCAINE 5% PATCH TOPICAL SCH ×2 (09:15→09:16)
[2019-08-29] MEDS: MORPHINE SULFATE IR 15 MG TABLET PO SCH (09:18)
[2019-08-29] MEDS: LITHIUM CARBONATE 300 MG PO SCH (09:18)
[2019-08-29] MEDS: OXcarbazepine 150 MG TAB PO SCH (09:19)
[2019-08-29] MEDS: NICOTINE 7MG/24HR PATCH TRANSDERM SCH (09:19)
[2019-08-29] MEDS: CITALOPRAM HYDROBROMIDE 20 MG TAB PO SCH (09:25)
[2019-08-29] MEDS: LORazepam 2 MG/ML INJ IV PRN (09:53)
[2019-08-29 12:29] VITALS: BP 119/67; RESP 16; TEMP 97.9
--- NOTE | 2019-08-30 09:36 | P.DS ---
Providers Date of admission: 08/27/19 09:33 Expected date of discharge: 08/29/19 Attending physician: Pat Caban Consults: 08/25/19 10:50 Consult Physician Routine Consulting Provider: Cynthia Villalpando Consult Reason/Comments: AMS Do you want consulting provider notified?: Yes 08/25/19 10:52 Consult Physician Routine Consulting Provider: Anand Portillo Consult Reason/Comments: AMS Do you want consulting provider notified?: Yes Primary care physician: Azam Self Hospital Course: Final diagnosis Acute urinary tract infection with sepsis, present on admission Change in mental status with acute on chronic metabolic encephalopathy secondary to urinary tract infection History of recent PRES lesions Bipolar, anxiety, post traumatic stress disorder History of neck pain History of aspirin abuse History of overdose with aspirin and hemodialysis previously@hypertension Sleep apnea next line history of fibromyalgia hyperchloremia increased white count elevated AST, ALT Full code Discharge disposition Patient is being discharged in a stable condition with guarded prognosis to home. Patient will follow-up with Dr. Self in the outpatient setting on discharge. Patient will continue on a short course of oral antibiotics in the form of Ceftin 500 mg twice daily for the next 5 days and then may discontinue. Total time taken is greater than 35 minutes. History of present illness This is a 64-year-old female who was recently admitted with urinary tract infection, change in mental status and was being closely monitored. Patient was seen and evaluated by physical therapy due to gait dysfunction and fatigue although does not qualify for rehab at this time. Case management and social work following for discharge planning needs. Patient was initiated on IV ceftriaxone and we'll transition to Ceftin 500 mg twice daily for the next 5 days to complete the course. Urine culture showed no growth although patient was having signs and symptoms of a urinary tract infection and continued dysuria. Patient will also be given a prescription for Pyridium 100 mg 3 times daily as needed for dysuria. Currently no reports of chest pain, worsening shortness of breath, or palpitations. Patient is afebrile. No reports of nausea or vomiting and patient is tolerating diet. Patient will be discharged to home today. On exam vital signs are stable. Temp is 97.9F, pulse is 67, respirations are 16, blood pressure is 119/67, oxygen saturation is 96% on room air. Cardio S1, S2 are muffled. Respiratory system shows diminished breath sounds at the bases with no wheezing or rhonchi noted. Abdomen is soft and nontender. Nervous system shows no focal deficits. Please refer to medication reconciliation sheet for a list of medications. Patient Condition at Discharge: Fair Plan - Discharge Summary Discharge Rx Participant: Yes New Discharge Prescriptions: New Aspirin 81 mg PO DAILY 30 Days #30 chew Cefuroxime Axetil [Ceftin] 500 mg PO BID 3 Days #6 tab Lidocaine 5% Patch [Lidoderm 5% Patch] 1 patch TOPICAL DAILY #20 patch QUEtiapine [SEROquel] 200 mg PO HS 30 Days #30 tab OXcarbazepine [Trileptal] 150 mg PO BID 30 Days #60 tab Acetaminophen Tab [Tylenol] 650 mg PO Q6HR PRN tab PRN Reason: Fever And/ Or Pain Phenazopyridine HCl [Pyridium] 100 mg PO TID PRN 3 Days #9 tab PRN Reason: Pain/Discomfort Continue Ergocalciferol (Vitamin D2) [Vitamin D2] 50,000 unit PO Q7D Albuterol Sulfate [Ventolin HFA] 1 - 2 puff INHALATION RT-Q4H PRN PRN Reason: Shortness Of Breath Albuterol Nebulized [Ventolin Nebulized] 2.5 mg INHALATION RT-QID PRN PRN Reason: Shortness Of Breath Levothyroxine Sodium [Synthroid] 50 mcg PO DAILY Citalopram Hydrobromide [CeleXA] 40 mg PO DAILY [place] Carbonate [[place] Carbonate ER] 450 mg PO HS Morphine Sulfate Ir [MSIR] 30 mg PO BID #0 Meloxicam [Qmiiz Odt] 15 mg PO DAILY PRN #30 tab.rapdis PRN Reason: Pain Famotidine [Pepcid] 20 mg PO BID #30 tablet Labetalol [Trandate] 100 mg PO BID Atorvastatin [Lipitor] 80 mg PO HS Nicotine 7Mg/24Hr Patch [Habitrol] 7 mg TRANSDERM DAILY Discontinued QUEtiapine [SEROquel] 800 mg PO HS [place] Carbonate [[place] Carbonate ER] 300 mg PO QAM Discharge Medication List Ergocalciferol (Vitamin D2) [Vitamin D2] 50,000 unit PO Q7D 11/25/17 [History] Albuterol Nebulized [Ventolin Nebulized] 2.5 mg INHALATION RT-QID PRN 08/11/19 [History] Albuterol Sulfate [Ventolin HFA] 1 - 2 puff INHALATION RT-Q4H PRN 08/11/19 [History] Citalopram Hydrobromide [CeleXA] 40 mg PO DAILY 08/11/19 [History] Levothyroxine Sodium [Synthroid] 50 mcg PO DAILY 08/11/19 [History] [place] Carbonate [[place] Carbonate ER] 450 mg PO HS 08/11/19 [History] Famotidine [Pepcid] 20 mg PO BID #30 tablet 08/13/19 [Rx] Meloxicam [Qmiiz Odt] 15 mg PO DAILY PRN #30 tab.rapdis 08/13/19 [Rx] Morphine Sulfate Ir [MSIR] 30 mg PO BID #0 08/13/19 [Rx] Atorvastatin [Lipitor] 80 mg PO HS 08/25/19 [History] Labetalol [Trandate] 100 mg PO BID 08/25/19 [History] Nicotine 7Mg/24Hr Patch [Habitrol] 7 mg TRANSDERM DAILY 08/25/19 [History] Acetaminophen Tab [Tylenol] 650 mg PO Q6HR PRN tab 08/29/19 [Rx] Aspirin 81 mg PO DAILY 30 Days #30 chew 08/29/19 [Rx] Cefuroxime Axetil [Ceftin] 500 mg PO BID 3 Days #6 tab 08/29/19 [Rx] Lidocaine 5% Patch [Lidoderm 5% Patch] 1 patch TOPICAL DAILY #20 patch 08/29/19 [Rx] OXcarbazepine [Trileptal] 150 mg PO BID 30 Days #60 tab 08/29/19 [Rx] Phenazopyridine HCl [Pyridium] 100 mg PO TID PRN 3 Days #9 tab 08/29/19 [Rx] QUEtiapine [SEROquel] 200 mg PO HS 30 Days #30 tab 08/29/19 [Rx] Follow up Appointment(s)/Referral(s): Azam Self DO [Primary Care Provider] - 08/30/19 2:00 pm ([facility]) Patient Instructions/Handouts: Cefuroxime (By mouth), Phenazopyridine (By mouth), Aspirin (By mouth), Quetiapine (By mouth), Oxcarbazepine (By mouth), Lidocaine Patch (On the skin), Altered Mental Status (ED) Activity/Diet/Wound Care/Special Instructions: Activity Limited until follow-up Continue current diet Follow-up with primary care provider upon discharge Follow-up with neurology in the outpatient setting Discharge Disposition: HOME SELF-CARE
== END 2019-08-29 15:53 | disposition home or self-care (01) | DRG 871 ==
LOC: EC 17:09 → 5NMEDONC 21:38 → OBSVTOIN 08-27 09:33
PROVIDERS: ADMIT Hospitalist; ATTEND Hospitalist
DX: A41.9 Sepsis, unspecified organism (principal); G93.41 Metabolic encephalopathy; N39.0 Urinary tract infection, site not specified; M79.7 Fibromyalgia; G47.30 Sleep apnea, unspecified; G89.4 Chronic pain syndrome; I10 Essential (primary) hypertension; F43.10 Post-traumatic stress disorder, unspecified; F31.9 Bipolar disorder, unspecified; F60.3 Borderline personality disorder; F17.210 Nicotine dependence, cigarettes, uncomplicated; E87.8 Other disorders of electrolyte and fluid balance, not elsewhere classified; F60.2 Antisocial personality disorder; G40.901 Epilepsy, unspecified, not intractable, with status epilepticus; I45.10 Unspecified right bundle-branch block; J44.9 Chronic obstructive pulmonary disease, unspecified; Z11.59 Encounter for screening for other viral diseases; Z79.899 Other long term (current) drug therapy; Z79.890 Hormone replacement therapy; Z79.82 Long term (current) use of aspirin; Z91.040 Latex allergy status; Z86.59 Personal history of other mental and behavioral disorders; Z80.51 Family history of malignant neoplasm of kidney; Z98.890 Other specified postprocedural states; Z80.3 Family history of malignant neoplasm of breast; Z86.14 Personal history of Methicillin resistant Staphylococcus aureus infection; Z86.73 Personal history of transient ischemic attack (TIA), and cerebral infarction without residual deficits; Z91.81 History of falling
CPT/HCPCS: 36415; 70450; 71046; 72125; 80048; 80053; 80178; 80306; 81001; 83605; 84484; 85025; 85610; 85730; 87040; 87086; 93005; 94640; 95816; 96374; 99285

== ENCOUNTER 2020-02-06 17:24 | Inpatient (IN) | payer MEDICARE ==
[2020-02-06] MEDS ORDERED: SODIUM CHLORIDE 0.9% 500 ML 500 ML IV ONE (17:51)
--- NOTE | 2020-02-06 17:53 | ED ---
General Adult HPI - General Chief complaint: Neuro Symptoms/Deficit Stated complaint: Stroke symptoms Time Seen by Provider: 02/06/20 17:36 Source: patient, RN notes reviewed, old records reviewed Mode of arrival: wheelchair Limitations: no limitations - History of Present Illness Initial comments: 65-year-old female presenting for evaluation of confusion, slurred speech. Symptoms have been present over the past at least 2 weeks. According to the carolyn rodriguez. Patient denies vomiting. She denies chest pain. She does report chronic pain issues and is currently on morphine. She has history of bipolar disorder and is on Seroquel. She denies fever. Denies dyspnea. Denies URI symptoms. Denies headache or focal numbness or weakness. - Related Data Home Medications Medication Instructions Recorded Confirmed Ergocalciferol (Vitamin D2) 50,000 unit PO Q7D 11/25/17 08/25/19 [Vitamin D2] Albuterol Nebulized [Ventolin 2.5 mg INHALATION RT-QID PRN 08/11/19 08/24/19 Nebulized] Albuterol Sulfate [Ventolin HFA] 1 - 2 puff INHALATION RT-Q4H PRN 08/11/19 08/24/19 Citalopram Hydrobromide [CeleXA] 40 mg PO DAILY 08/11/19 08/24/19 Levothyroxine Sodium [Synthroid] 50 mcg PO DAILY 08/11/19 08/25/19 [place] Carbonate [[place] 450 mg PO HS 08/11/19 08/25/19 Carbonate ER] Atorvastatin [Lipitor] 80 mg PO HS 08/25/19 08/25/19 Labetalol [Trandate] 100 mg PO BID 08/25/19 08/25/19 Nicotine 7Mg/24Hr Patch [Habitrol] 7 mg TRANSDERM DAILY 08/25/19 08/25/19 Previous Rx's Medication Instructions Recorded Famotidine [Pepcid] 20 mg PO BID #30 tablet 08/13/19 Meloxicam [Qmiiz Odt] 15 mg PO DAILY PRN #30 tab.rapdis 08/13/19 Morphine Sulfate Ir [MSIR] 30 mg PO BID #0 08/13/19 Acetaminophen Tab [Tylenol] 650 mg PO Q6HR PRN tab 08/29/19 Aspirin 81 mg PO DAILY 30 Days #30 chew 08/29/19 Cefuroxime Axetil [Ceftin] 500 mg PO BID 3 Days #6 tab 08/29/19 Lidocaine 5% Patch [Lidoderm 5% 1 patch TOPICAL DAILY #20 patch 08/29/19 Patch] OXcarbazepine [Trileptal] 150 mg PO BID 30 Days #60 tab 08/29/19 Phenazopyridine HCl [Pyridium] 100 mg PO TID PRN 3 Days #9 tab 08/29/19 QUEtiapine [SEROquel] 200 mg PO HS 30 Days #30 tab 08/29/19 Allergies Allergy/AdvReac Type Severity Reaction Status Date / Time latex Allergy Unknown Rash/Hives Verified 02/06/20 17:35 Review of Systems ROS Statement: Those systems with pertinent positive or pertinent negative responses have been documented in the HPI. ROS Other: All systems not noted in ROS Statement are negative. Past Medical History Past Medical History: COPD, Fibromyalgia, Hypertension, Seizure Disorder, Sleep Apnea/CPAP/BIPAP Additional Past Medical History / Comment(s): bipolar; borderline personality; antisocial; eating disorder, PTSD, chronic aspirin user - 4-8 tablets a day - about 40 years, chronic pain. 3 weeks ago in for aspirin overdose accidental- ended up going into kidney failure and having to have dialysis in ICU, went to [facility] after and started having seizures and Hypertensive emergency,. Diagnosed with PRES encephalopathy at [facility] History of Any Multi-Drug Resistant Organisms: MRSA Date of last positivie culture/infection: 2004 MDRO Source:: unknown Past Surgical History: Back Surgery Additional Past Surgical History / Comment(s): neck surgery Past Anesthesia/Blood Transfusion Reactions: No Reported Reaction Past Psychological History: Anxiety, Bipolar, Depression, PTSD Smoking Status: Former smoker Past Alcohol Use History: None Reported Past Drug Use History: None Reported - Past Family History Sister(s) Family Medical History: Cancer, Renal Disease Additional Family Medical History / Comment(s): breast cancer, kidney cancer General Exam Limitations: no limitations General appearance: in no apparent distress, lethargic Head exam: Present: atraumatic, normocephalic Eye exam: Present: normal appearance, PERRL ENT exam: Present: mucous membranes dry Neck exam: Present: normal inspection. Absent: tenderness, meningismus Respiratory exam: Present: normal lung sounds bilaterally. Absent: respiratory distress, wheezes Cardiovascular Exam: Present: regular rate, normal rhythm GI/Abdominal exam: Present: soft. Absent: distended, tenderness Extremities exam: Present: normal inspection, normal capillary refill. Absent: pedal edema Neurological exam: Present: alert, oriented X3, CN II-XII intact. Absent: motor sensory deficit Psychiatric exam: Present: depressed, flat affect Skin exam: Present: warm, dry, intact. Absent: cyanosis, diaphoretic Course Vital Signs 02/06/20 02/06/20 17:32 18:36 Temperature 98.3 F Pulse Rate 60 61 Respiratory 18 18 Rate Blood Pressure 117/70 125/65 O2 Sat by Pulse 95 98 Oximetry EKG Findings - EKG Comments: EKG Findings:: EKG: Normal sinus rhythm, incomplete right bundle, rate of 62, ND interval 160, QRS duration 104, QTC 487, no ST segment elevation. Medical Decision Making - Medical Decision Making 65-year-old female presenting for evaluation of confusion, word finding difficulty, slurred speech. Workup reveals head CT which shows no acute intracranial abnormality, no hemorrhage. Chest x-ray question left lower lobe atelectasis versus infiltrate. No cough, no fever, no leukocytosis. Patient has mild hyponatremia 131. Otherwise normal electrolytes. Negative urinalysis. Patient will be admitted to internal medicine with neurology on consult. Case discussed with Dr. Caban who will admit. - Lab Data Result diagrams: 02/06/20 18:01 02/06/20 18:01 Lab Results 02/06/20 02/06/20 02/06/20 Range/Units 18:01 18: 18:01 WBC 7.0 (3.8-10.6) k/uL RBC 4.23 (3.80-5.40) m/uL Hgb 11.7 (11.4-16.0) gm/dL Hct 38.2 (34.0-46.0) % MCV 90.3 (80.0-100.0) fL MCH 27.6 (25.0-35.0) pg MCHC 30.6 L (31.0-37.0) g/dL RDW 14.6 (11.5-15.5) % Plt Count 289 (150-450) k/uL MPV 8.5 Neutrophils % 64 % Lymphocytes % 25 % Monocytes % 6 % Eosinophils % 2 % Basophils % 1 % Neutrophils # 4.5 (1.3-7.7) k/uL Lymphocytes # 1.8 (1.0-4.8) k/uL Monocytes # 0.4 (0-1.0) k/uL Eosinophils # 0.2 (0-0.7) k/uL Basophils # 0.0 (0-0.2) k/uL PT 9.6 (9.0-12.0) sec INR 0.9 (<1.2) APTT 24.5 (22.0-30.0) sec Sodium (137-145) mmol/L Potassium (3.5-5.1) mmol/L Chloride (98-107) mmol/L Carbon Dioxide (22-30) mmol/L Anion Gap mmol/L BUN (7-17) mg/dL Creatinine (0.52-1.04) mg/dL Est GFR (CKD-EPI)AfAm (>60 ml/min/1.73 sqM) Est GFR (CKD-EPI)NonAf (>60 ml/min/1.73 sqM) Glucose (74-99) mg/dL Calcium (8.4-10.2) mg/dL Total Bilirubin (0.2-1.3) mg/dL AST (14-36) U/L ALT (4-34) U/L Alkaline Phosphatase (38-126) U/L Troponin I (0.000-0.034) ng/mL Total Protein (6.3-8.2) g/dL Albumin (3.5-5.0) g/dL Urine Color Light Yellow Urine Appearance Clear (Clear) Urine pH 7.0 (5.0-8.0) Ur Specific Brooks 1.004 (1.001-1.035) Urine Protein Negative (Negative) Urine Glucose (UA) Negative (Negative) Urine Ketones Negative (Negative) Urine Blood Negative (Negative) Urine Nitrite Negative (Negative) Urine Bilirubin Negative (Negative) Urine Urobilinogen <2.0 (<2.0) mg/dL Ur Leukocyte Esterase Negative (Negative) Urine Opiates Screen Detected H (NotDetected) Ur Oxycodone Screen Not Detected (NotDetected) Urine Methadone Screen Not Detected (NotDetected) Ur Propoxyphene Screen Not Detected (NotDetected) Ur Barbiturates Screen Not Detected (NotDetected) U Tricyclic Antidepress Detected H (NotDetected) Ur Phencyclidine Scrn Not Detected (NotDetected) Ur Amphetamines Screen Not Detected (NotDetected) U Methamphetamines Scrn Not Detected (NotDetected) U Benzodiazepines Scrn Not Detected (NotDetected) Urine Cocaine Screen Not Detected (NotDetected) U Marijuana (THC) Screen Not Detected (NotDetected) Serum Alcohol mg/dL 02/06/20 02/06/20 Range/Units 18:01 18:01 WBC (3.8-10.6) k/uL RBC (3.80-5.40) m/uL Hgb (11.4-16.0) gm/dL Hct (34.0-46.0) % MCV (80.0-100.0) fL MCH (25.0-35.0) pg MCHC (31.0-37.0) g/dL RDW (11.5-15.5) % Plt Count (150-450) k/uL MPV Neutrophils % % Lymphocytes % % Monocytes % % Eosinophils % % Basophils % % Neutrophils # (1.3-7.7) k/uL Lymphocytes # (1.0-4.8) k/uL Monocytes # (0-1.0) k/uL Eosinophils # (0-0.7) k/uL Basophils # (0-0.2) k/uL PT (9.0-12.0) sec INR (<1.2) APTT (22.0-30.0) sec Sodium 131 L (137-145) mmol/L Potassium 4.4 (3.5-5.1) mmol/L Chloride 104 (98-107) mmol/L Carbon Dioxide 20 L (22-30) mmol/L Anion Gap 7 mmol/L BUN 12 (7-17) mg/dL Creatinine 0.82 (0.52-1.04) mg/dL Est GFR (CKD-EPI)AfAm 88 (>60 ml/min/1.73 sqM) Est GFR (CKD-EPI)NonAf 77 (>60 ml/min/1.73 sqM) Glucose 104 H (74-99) mg/dL Calcium 9.4 (8.4-10.2) mg/dL Total Bilirubin 0.4 (0.2-1.3) mg/dL AST 27 (14-36) U/L ALT 20 (4-34) U/L Alkaline Phosphatase 174 H (38-126) U/L Troponin I <0.012 (0.000-0.034) ng/mL Total Protein 6.8 (6.3-8.2) g/dL Albumin 4.1 (3.5-5.0) g/dL Urine Color Urine Appearance (Clear) Urine pH (5.0-8.0) Ur Specific Brooks (1.001-1.035) Urine Protein (Negative) Urine Glucose (UA) (Negative) Urine Ketones (Negative) Urine Blood (Negative) Urine Nitrite (Negative) Urine Bilirubin (Negative) Urine Urobilinogen (<2.0) mg/dL Ur Leukocyte Esterase (Negative) Urine Opiates Screen (NotDetected) Ur Oxycodone Screen (NotDetected) Urine Methadone Screen (NotDetected) Ur Propoxyphene Screen (NotDetected) Ur Barbiturates Screen (NotDetected) U Tricyclic Antidepress (NotDetected) Ur Phencyclidine Scrn (NotDetected) Ur Amphetamines Screen (NotDetected) U Methamphetamines Scrn (NotDetected) U Benzodiazepines Scrn (NotDetected) Urine Cocaine Screen (NotDetected) U Marijuana (THC) Screen (NotDetected) Serum Alcohol <10 mg/dL Disposition Clinical Impression: Altered mental status Disposition: ADMITTED IP TO THIS [facility] Condition: Stable Is patient prescribed a controlled substance at d/c from ED?: No Referrals: Azam Self DO [Primary Care Provider] - 1-2 days Decision to Admit Reason: Admit from EC Decision Date: 02/06/20 Decision Time: 18:52
[2020-02-06 18:13] LABS: Basophils % (A) 1 %; Eosinophils # (A) 0.2 k/uL (0-0.7); Eosinophils % (A) 2 %; HCT 38.2 % (34.0-46.0); HGB 11.7 gm/dL (11.4-16.0); Lymphocytes # (A) 1.8 k/uL (1.0-4.8); Lymphocytes % (A) 25 %; MCH 27.6 pg (25.0-35.0); MCHC 30.6 g/dL (31.0-37.0); MCV 90.3 fL (80.0-100.0); Mean Platelet Volume 8.5; Monocytes # (A) 0.4 k/uL (0-1.0); Monocytes % (A) 6 %; Neutrophils # (A) 4.5 k/uL (1.3-7.7); Neutrophils % (A) 64 %; Platelet Count 289 k/uL (150-450); RBC 4.23 m/uL (3.80-5.40); RDW 14.6 % (11.5-15.5)
[2020-02-06 18:20] LABS: Appearance,Urine Clear (Clear); Bilirubin,Urine Negative (Negative); Blood,Urine Negative (Negative); Color,Urine Light Yellow; Glucose,Urine (UA) Negative (Negative); Ketones,Urine Negative (Negative); Leukocyte Esterase,Urine Negative (Negative); Nitrite,Urine Negative (Negative); Protein,Urine Negative (Negative); Specific Gravity,Urine 1.004 (1.001-1.035); Urobilinogen,Urine <2.0 mg/dL (<2.0)
[2020-02-06 18:23] LABS: INR 0.9 (<1.2); Partial Thromboplastin Time 24.5 sec (22.0-30.0); Prothrombin Time 9.6 sec (9.0-12.0)
--- NOTE | 2020-02-06 18:30 | CT ---
EXAMINATION TYPE: CT brain wo con DATE OF EXAM: 02/06/2020 COMPARISON: 08/24/2019 HISTORY: Confusion, weakness CT DLP: 1096.4 mGycm Automated exposure control for dose reduction was used. Ventricles have normal size. There is no mass effect nor midline shift. There is no sign of intracran ial hemorrhage. The calvarium is intact. There is no evidence of cerebral edema. There is minimal cortical hypodensity in the left occipital lobe convexity unchanged and of uncertain significance. IMPRESSION: No acute intracranial abnormality. Convexity cortical hypodensity in the left occipital lobe similar to old exam. Clinical significance is not clear. No atrophy seen.
[2020-02-06 18:32] LABS: ALT 20 U/L (4-34); AST 27 U/L (14-36); African American GFR (CKD) 88 (>60 ml/min/1.73 sqM); Albumin 4.1 g/dL (3.5-5.0); Alcohol <10 mg/dL; Alkaline Phosphatase 174 U/L (38-126); Anion Gap 7 mmol/L; Blood Urea Nitrogen 12 mg/dL (7-17); Calcium 9.4 mg/dL (8.4-10.2); Carbon Dioxide 20 mmol/L (22-30); Chloride 104 mmol/L (98-107); Glucose 104 mg/dL (74-99); Non-African American GFR(CKD) 77 (>60 ml/min/1.73 sqM); Potassium 4.4 mmol/L (3.5-5.1); Sodium 131 mmol/L (137-145); Total Bilirubin 0.4 mg/dL (0.2-1.3); Total Protein 6.8 g/dL (6.3-8.2)
--- NOTE | 2020-02-06 18:33 | XR ---
EXAMINATION TYPE: XR chest 2V DATE OF EXAM: 02/06/2020 COMPARISON: 08/24/2019 HISTORY: Altered mental status TECHNIQUE: 2 views FINDINGS: There is some mild infiltrate and atelectasis left lung base. Heart size is normal. There i s no heart failure. There are no hilar masses. There are chest leads. IMPRESSION: Minimal left lower lobe infiltrate and atelectasis increased compared to old exam. No hea rt failure seen. There is clearing of atelectasis right midlung compared to old exam.
[2020-02-06 18:37] LABS: Amphetamine Screen,Urine Not Detected (NotDetected); Barbiturate Screen,Urine Not Detected (NotDetected); Benzodiazepines Screen,Urine Not Detected (NotDetected); Cocaine Screen,Urine Not Detected (NotDetected); Methadone Screen, Urine Not Detected (NotDetected); Opiate Screen,Urine Detected (NotDetected); Oxycodone Screen, Urine Not Detected (NotDetected); Phencyclidine Screen,Urine Not Detected (NotDetected); Tricyclic Antidepressant,Urine Detected (NotDetected); Urn Cannabinoid Scrn Not Detected (NotDetected)
[2020-02-06] MEDS ORDERED: ASPIRIN 325 MG TAB PO STA (18:46)
[2020-02-06] MEDS ORDERED: NALOXONE 0.4 MG/ML 1 ML VIAL IV PRN (18:48)
[2020-02-06] MEDS: SODIUM CHLORIDE 0.9% 1,000 ML IV SCH (19:03)
[2020-02-06 19:50] LABS: Lithium 2.1 mmol/L
[2020-02-06 20:48] LABS: T4, Free (Free Thyroxine) 0.51 ng/dL (0.78-2.19)
--- NOTE | 2020-02-06 23:05 | HP ---
HISTORY AND PHYSICAL DATE OF SERVICE: 02/06/2020 CHIEF COMPLAINT: Change in mental status and confusion. HISTORY OF PRESENT ILLNESS: This 65-year-old woman with a past medical history of multiple medical problems including history of COPD, fibromyalgia, hypertension, seizure disorder, sleep apnea, bipolar, borderline personality, antisocial eating disorder, PTSD, chronic aspirin usage, being followed by Dr. Self in the outpatient setting previously admitted to [facility] with multiple complaints, patient had change in mental status, metabolic encephalopathy thought to be due to acute UTI. Patient also had a PRES lesion and was monitored in [facility] prior to that time. The patient also apparently had 3 weeks of aspirin overdosage accidental and kidney failure and had previously dialysis in ICU. The patient also had a [facility] and patient had seizures and multiple other medical problems prior to that. The patient also has history of anxiety, bipolar depression, PTSD and borderline personality antisocial disorder as mentioned earlier. Currently the CT scan showed some hypodensity in the left occipital area. Otherwise, there is no history of fever, rigors or chills. No history of headache, loss of consciousness, seizures or any contact with COVID-19 infection at this time. PAST MEDICAL HISTORY: History of COPD, fibromyalgia, hypertension, seizure disorder, sleep apnea, anxiety, bipolar depression. MEDICATIONS: Prior to admission include home medications are: Seroquel, Pyridium, Trileptal. Habitrol, MS-IR, lithium carbonate, Lidoderm, Synthroid, Trandate, Pepcid. Vitamin D2, Celexa, Ceftin, Lipitor, aspirin, Ventolin HFA and Tylenol. ALLERGIES: LATEX. FAMILY HISTORY: History of cancer, renal disease, breast cancer, kidney cancer. SOCIAL HISTORY: Previous history of smoking. No history of alcohol intake. Previous history of cocaine addiction. REVIEW OF SYSTEMS: ENT: Diminished vision. Diminished hearing. CARDIOVASCULAR: No angina. Respiration: No cough. GI: As mentioned earlier. NERVOUS SYSTEM: as mentioned earlier. ALLERGY/IMMUNOLOGY: No asthma or hayfever. Musculoskeletal: As mentioned earlier. Hematology/Oncology:No history of anemia. ENDOCRINE: No history of diabetes or hypothyroidism. CONSTITUTIONAL: As mentioned earlier. DERMATOLOGY: Negative. RHEUMATOLOGY negative. PSYCHIATRY as mentioned earlier. PHYSICAL EXAMINATION: Alert and oriented x2. Pulse is 60. Blood pressure 170/70, respiration 18, temperature 98.2, pulse ox 94% on room air. HEENT: Conjunctivae normal. Oral mucosa moist. NECK is no jugular venous distention. No carotid bruit. No lymph node enlargement. Cardiovascular system: S1, S2 muffled. No S3, no S4. Respiratory: Breath sounds diminished in the bases. No rhonchi. No crackles. ABDOMEN: Soft, nontender. No mass palpable. Legs: No edema. No swelling. Nervous system: Higher functions as mentioned. Moves all 4 limbs. No focal motor or sensory deficits. Lymphatics: No lymph nodes palpable in the neck, axillae or groin. SKIN: No ulcer, rash or bleeding. JOINTS: No active deforming arthropathy. LABS: At this time, WBC 7.3, hemoglobin 7.7, sodium 131, CO2 is 20. Glucose is 104. Alkaline phosphatase 174. UA noted. Otherwise CT scan of the brain personally reviewed. ASSESSMENT: 1. Change in mental status possible acute metabolic encephalopathy, drug-induced. 2. Hyponatremia. 3. History of aspirin overdosage, hemodialysis and seizures and hypertensive urgency. 4. History of chronic obstructive pulmonary disease. 5. Fibromyalgia. 6. Hypertension. 7. History of seizure disorder. 8. History of sleep apnea. 9. History of bipolar, anxiety, depression, PTSD, borderline personality, antisocial disorder. 10.History of PRES encephalopathy. 11.History of MRSA. 12.History of back surgery and neck surgery. 13.History of cocaine addiction. 14.Obesity body mass of 31.1. 15.FULL CODE. RECOMMENDATIONS AND DISCUSSION: In this 65-year-old woman who presented with multiple complex medical issues, we will monitor the patient closely, continue the current medications, management. We will admit the patient. Neuro checks. Full neurology workup including neurology evaluation. I would also recommend urine drug screen which is positive for tricyclics, antidepressants and opiates. Medications adjusted. The patient is taking multiple psych medicines as well. I will obtain lithium level and TSH level. Otherwise Psychiatry also being consulted. The prognosis extremely guarded because of multiple complex medical issues. A copy of dictation being forwarded to Dr. Self who is the primary physician. Currently the UA is negative. The chest showed minimal left lower lobe infiltrate which is increased. I would also recommend a CT of the chest for further delineation after D-dimer testing also. Further recommendations to follow. MMODL / IJN: [id number] /
[2020-02-07 05:06] LABS: Basophils % (A) 1 %; Eosinophils # (A) 0.2 k/uL (0-0.7); Eosinophils % (A) 4 %; HCT 31.4 % (34.0-46.0); HGB 10.4 gm/dL (11.4-16.0); Lymphocytes # (A) 1.5 k/uL (1.0-4.8); Lymphocytes % (A) 23 %; MCH 29.8 pg (25.0-35.0); MCHC 33.2 g/dL (31.0-37.0); MCV 89.7 fL (80.0-100.0); Mean Platelet Volume 8.3; Monocytes # (A) 0.5 k/uL (0-1.0); Monocytes % (A) 8 %; Neutrophils # (A) 3.9 k/uL (1.3-7.7); Neutrophils % (A) 61 %; Platelet Count 248 k/uL (150-450); RDW 14.3 % (11.5-15.5); WBC 6.4 k/uL (3.8-10.6)
[2020-02-07 10:16] LABS: African American GFR (CKD) 106.9 (60.0-200.0); Anion Gap 6.7 mmol/L (4.00-12.00); BUN/Creat Ratio 17.14 Ratio (12.00-20.00); Calcium 9.1 mg/dL (8.7-10.3); Carbon Dioxide 22.3 mmol/L (21.6-31.8); Non-African American GFR(CKD) 92.2 (60.0-200.0)
[2020-02-07] MEDS: SODIUM CHLORIDE 0.9% 1,000 ML IV SCH ×2 (11:00→23:15)
--- NOTE | 2020-02-07 12:34 | P.NPCON ---
History of Present Illness - Reason for Consult acute renal failure - History of Present Illness Reason for consultation: Pinckard toxicity History of present illness: Patient is a 65-year-old female seen in renal consultation for lithium toxicity. Patient is currently quite tired and not a reliable historian. History is obtained from the chart. Patient presented to the hospital with confusion and slurred speech. Patient's symptoms have been going on for the last 2 weeks or so. She has history of bipolar disorder and does take lithium at home but is not able to tell me for how long she's been on it. Her lithium level was 2.1 on admission last night. There is no report of nausea vomiting or diarrhea. No edema. No chest pain or shortness of breath. Renal function is at baseline. Creatinine 0.7 as of this morning. Brain CT revealed no acute intracranial of normality. Blood pressure stable. Patient's urine drug screen was positive for opiates and tricyclic antidepressants. Serum alcohol level was negative. Vital signs are stable. General: The patient appeared well nourished and normally developed. HEENT: Head exam is unremarkable. Neck is without jugular venous distension. LUNGS: Breath sounds decreased. HEART: Rate and Rhythm are regular. ABDOMEN: Soft, nontender. EXTREMITITES: No edema. Past Medical History Past Medical History: COPD, Fibromyalgia, Hypertension, Seizure Disorder, Sleep Apnea/CPAP/BIPAP Additional Past Medical History / Comment(s): bipolar; borderline personality; antisocial; eating disorder, PTSD, chronic aspirin user - 4-8 tablets a day - about 40 years, chronic pain. 3 weeks ago in for aspirin overdose accidental- ended up going into kidney failure and having to have dialysis in ICU, went [facility] and started having seizures and Hypertensive emergency,. Diagnosed with PRES encephalopathy at [facility] History of Any Multi-Drug Resistant Organisms: MRSA Date of last positivie culture/infection: 2004 MDRO Source:: unknown Past Surgical History: Back Surgery Additional Past Surgical History / Comment(s): neck surgery Past Anesthesia/Blood Transfusion Reactions: No Reported Reaction Past Psychological History: Anxiety, Bipolar, Depression, PTSD Smoking Status: Former smoker Past Alcohol Use History: None Reported Past Drug Use History: None Reported - Past Family History Sister(s) Family Medical History: Cancer, Renal Disease Additional Family Medical History / Comment(s): breast cancer, kidney cancer Medications and Allergies Home Medications Medication Instructions Recorded Confirmed Type Ergocalciferol (Vitamin D2) 50,000 unit PO Q7D 11/25/17 02/06/20 History [Vitamin D2] Citalopram Hydrobromide [CeleXA] 40 mg PO DAILY 08/11/19 02/06/20 History Levothyroxine Sodium [Synthroid] 50 mcg PO DAILY 08/11/19 02/06/20 History Pinckard Carbonate [Pinckard 450 mg PO HS 08/11/19 02/06/20 History Carbonate ER] OXcarbazepine [Trileptal] 150 mg PO BID 30 Days #60 tab 08/29/19 02/06/20 Rx Atorvastatin [Lipitor] 10 mg PO HS 02/06/20 02/06/20 History Clopidogrel [Plavix] 75 mg PO DAILY 02/06/20 02/06/20 History Lidocaine 5% Patch [Lidoderm 5% 1 patch TOPICAL DAILY PRN 02/06/20 02/06/20 History Patch] Meloxicam 15 mg PO DAILY PRN 02/06/20 02/06/20 History Morphine Sulfate Ir [MSIR] 30 mg PO QID 02/06/20 02/06/20 History Naloxone HCl [Narcan] 1 spray NASAL ONCE PRN 02/06/20 02/06/20 History QUEtiapine FUMARATE [SEROquel] 800 mg PO HS 02/06/20 02/07/20 History traZODone HCL 300 mg PO HS 02/06/20 02/06/20 History Allergies Allergy/AdvReac Type Severity Reaction Status Date / Time latex Allergy Unknown Rash/Hives Verified 02/06/20 19:43 Physical Exam Vitals: Vital Signs Temp Pulse Resp BP Pulse Ox 02/07/20 11:41 98.4 F 65 18 110/52 97 02/07/20 08:58 98 F 75 16 101/75 98 02/07/20 06:55 97.5 F L 71 18 101/76 96 02/07/20 04:49 97.7 F 58 L 18 100/60 96 02/06/20 23:14 98.1 F 58 L 16 91/43 96 02/06/20 19:43 64 18 114/64 95 02/06/20 18:36 61 18 125/65 98 02/06/20 17:32 98.3 F 60 18 117/70 95 Intake and Output 02/06/20 02/07/20 02/07/20 22:59 06:59 14:59 Other: Weight 77.111 kg Results - Lab Results Most recent lab results Calcium 9.1 mg/dL (8.7-10.3) 02/07/20 04:23 02/07/20 04:23 02/07/20 04:23 Assessment and Plan Plan: Assessment: 1. Acute on chronic lithium toxicity. Looking back at the records it appears patient was on lithium during her prior admission in August 2019. Pinckard level 2.1 on admission. 2. History of bipolar disorder. 3. Hypovolemic hyponatremia improved with IV hydration. 4. Metabolic acidosis. Improved. 5. Encephalopathy. Likely drug-induced. Neurology consulted. 6. History of PRES. 7. History of salicylate overdose. Plan: I will increase rate of normal saline to 125 mL an hour. Check lithium level now and again in the morning. With normal GFR, good urine output and lithium level of 2.1, no emergent need for renal replacement therapy at this time. However if her lithium level is not trending down and there is no improvement in her mentation, will plan for renal replacement therapy. Hold lithium. Check salicylate level as well. Thank you for the consultation. I will continue to follow the patient with you during her hospital stay.
[2020-02-07] MEDS ORDERED: INFLUENZA VACCINE (6 MOS+) 60 MCG/0.5 ML SYRINGE IM ONE (14:49)
[2020-02-07] MEDS ORDERED: MELOXICAM 7.5 MG TAB PO PRN (16:00)
[2020-02-07] MEDS ORDERED: LIDOCAINE 5% PATCH TOPICAL PRN (16:00)
[2020-02-07] MEDS ORDERED: NALOXONE HCL 4 MG MISCELLANE PRN (16:00)
[2020-02-07] MEDS ORDERED: MELATONIN 3 MG TABLET PO PRN (16:02)
[2020-02-07] MEDS ORDERED: ACETAMINOPHEN TAB 325 MG TAB PO PRN (16:02)
--- NOTE | 2020-02-07 16:23 | P.CNNES ---
History of Present Illness Consult date: 01/08/20 Requesting physician: Erasmo Stone Reason for Consult: altered mental status History of Present Illness: This is a 65-year-old woman with medical history of seizure, sleep apnea, hypertension, bipolar that presented to the emergency department because of slurring of the speech and confusion for two weeks per ED. upon seeing the patient she stated that the for at least the last couple days and she's been having whole body tremor, she said felt confused as well as she felt the whole body was weak. She said that she was having falls as a result of whole body feels weak. Patient denies of any nausea any vomiting. Denies any focal weakness numbness or headaches. He denies of any fevers. Upon seeing the patient is slow to respond and unable to get a good history from the patient. She stated that she is not on aspirin because that she had an overdose in August 2019. She cannot tell me what medication she is on for the her stroke that she suffered in August 2019. But she did state that she had a stroke in the August 2019. Regarding her seizure medication in August 2019 the neurology team met initially placed on Lamictal which would help with the procedure as well as the her mood disorder bun then the next notes by other neurologists he placed her on Keppra. She could not tell me what medications she was on for seizure. I asked her if she was on Keppra or Lamictal and she cannot tell me which one. Regarding follow-up with a neurologist she said that she did not because nobody told her. On morphine for her chronic pain. She is also on Seroquel for her bipolar. Work-up in the hospital consisted of: Initial vital signs: Blood pressure of 117/70, heart rate of 60, respiratory of 18, temperature of 98.3 Fahrenheit oral and pulse ox of 95% at room air. CT of the head is reported as no acute intracranial abnormality. Convexity cortical hypodensity in the left occipital lobe similar to the old exam (the comparison was on 08/24/2019). Clinical significance is not clear at. No atrophy seen. I personally reviewed the CT of the head and I agree the patient does have an old cortical hypodensity in the left occipital. EKG is reported as normal sinus rhythm. Incomplete right bundle branch block. Borderline EKG. Initial white blood cells 7.0 and the repeated 6.4 and are within normal limits. His sodium is 131 and a repeat is 136 which is the repeated as within normal limits. The TSH is 5.49 which is high and a free T4 is 0.51 which is low which is consistent with hypothyroidism. Urine drug screen and it's positive for opiates and positive for tricyclic antidepressants. Mcpherson is level is a 2.1 which is potentially toxic. Serum alcohol level was less than 10 and Salicylate it is less than 1.0 Patient was seen by a colleague Dr. Levy on 08/25/2019 for altered mental sta tus and he mentioned in his note that the patient the was admitted to the hospital about 2 weeks ago for accidental cell is cyclic overdose at. An EEG was done on the 08/24/2019 and showed the background slowing and disorganization suggestive of generalized cerebral dysfunction as can be seen with toxic metabolic encephalopathy or due to diffuse structural brain abnormality. There is frontal intermittent rhythmic delta as well as intermittent generalized rhythmic delta activity suggestive of encephalopathy and may suggest compulsive and tendency. No definite epileptiform activity was seen. This study was also limited by myogenic artifact but that was improved compared to the prior study of 08/16/2019. As well as the was seen by Dr. Robert Moulton also one of the neuro-hospitalist and he is a was reported that the patient had left cerebellar/bilateral occipital hypodensity on the CT which may represent acute infarct versus press related to hypodensity encephalopathy at. He also felt the onset seizure secondary due to the the left cerebellar/bilateral occipital hypodensity. MRI was done on 08/17/2019 and that was reported as diffuse abnormal signal throughout the bilateral cerebellum and cerebrum. There is a mass effect and mild compression of the lateral margin of the fourth ventricle on the left. There are numerous punctate area of enhancement including cerebellar and the supratentorial. Diffusion demonstrate only faint high signal in the region on multiple level. Suspect there is component of ischemic change in the left occipital lobe and the medial right temporal lobe. Differential diagnosis would include press, metabolic, although neoplastic was given then has been cannot be excluded. Subacute infarct in the differential diagnosis. Correlate clinically to exclude infection etiology, add them, PML. Cerebellar tonsils and low-lying position correlate for the increased intracranial pressure. In August 2019 the patient was recommended Trileptal 150 mg twice a day and after 3 days increase to 300 mg twice a day by Dr. Villalpando and he stated to discontinue of patient has a rash. But then Dr. Moulton stated the patient is currently maintained on aspirin and Keppra on his 08/17/2019. Again I did not see any antiepileptic as a discharge the on that particular admission. Patient had CTA head and neck on 08/16/2019 and was reported as no angiopathy a bnormality demonstrated. Hypodensity left hospital lobe and left cerebellar hemisphere consistent with the subacute infarct unchanged compared to exam today at 3 AM. Looking at the discharge summary and it looks like the patient was discharged on aspirin 81 mg Lipitor 80 mg Review of Systems Review of system: The 12 point system was reviewed and apparent positive and negative per HPI. Past Medical History Past Medical History: COPD, CVA/TIA, Fibromyalgia, Hypertension, Seizure Disorder, Sleep Apnea/CPAP/BIPAP, Thyroid Disorder Additional Past Medical History / Comment(s): Chronic pain mostly in neck/low back, chronic aspirin user -was taking 4-8 tablets a day for about 40 years but had accidental aspirin overdose in August 2019-ended up going into kidney failure and having to have dialysis in ICU-[facility] and started having seizures and hypertensive emergency-sent to [facility] and diagnosed with PRES encephalopathy, pt states CVA 08/2019 with memory problems/word finding problems/slow speech and occasional slurred speech, eating disorder, iron anem ia, bronchitis, sinus problems, IBS, UTI with sepsis, hypothyroid, migraines. History of Any Multi-Drug Resistant Organisms: MRSA Date of last positivie culture/infection: 2004 MDRO Source:: unknown Past Surgical History: Back Surgery, Tonsillectomy Additional Past Surgical History / Comment(s): Cervical and low back surgery Past Anesthesia/Blood Transfusion Reactions: No Reported Reaction Smoking Status: Former smoker - Past Family History Sister(s) Family Medical History: Cancer, Renal Disease Additional Family Medical History / Comment(s): breast cancer, kidney cancer Mother Family Medical History: Hypertension Father Additional Family Medical History / Comment(s): Father of a cardiac arrest. Medications and Allergies Home Medications Medication Instructions Recorded Confirmed Type Ergocalciferol (Vitamin D2) 50,000 unit PO Q7D 11/25/17 02/06/20 History [Vitamin D2] Citalopram Hydrobromide [CeleXA] 40 mg PO DAILY 08/11/19 02/06/20 History Levothyroxine Sodium [Synthroid] 50 mcg PO DAILY 08/11/19 02/06/20 History Mcpherson Carbonate [Mcpherson 450 mg PO HS 08/11/19 02/06/20 History Carbonate ER] OXcarbazepine [Trileptal] 150 mg PO BID 30 Days #60 tab 08/29/19 02/06/20 Rx Atorvastatin [Lipitor] 10 mg PO HS 02/06/20 02/06/20 History Clopidogrel [Plavix] 75 mg PO DAILY 02/06/20 02/06/20 History Lidocaine 5% Patch [Lidoderm 5% 1 patch TOPICAL DAILY PRN 02/06/20 02/06/20 History Patch] Meloxicam 15 mg PO DAILY PRN 02/06/20 02/06/20 History Morphine Sulfate Ir [MSIR] 30 mg PO QID 02/06/20 02/06/20 History Naloxone HCl [Narcan] 1 spray NASAL ONCE PRN 02/06/20 02/06/20 History QUEtiapine FUMARATE [SEROquel] 800 mg PO HS 02/06/20 02/07/20 History traZODone HCL 300 mg PO HS 02/06/20 02/06/20 History Allergies Allergy/AdvReac Type Severity Reaction Status Date / Time latex Allergy Unknown Rash/Hives Verified 02/06/20 19:43 Physical Examination - Vital Signs Vital Signs: Vital Signs Temp Pulse Resp BP Pulse Ox 02/07/20 11:41 98.4 F 65 18 110/52 97 02/07/20 08:58 98 F 75 16 101/75 98 02/07/20 06:55 97.5 F L 71 18 101/76 96 02/07/20 04:49 97.7 F 58 L 18 100/60 96 02/06/20 23:14 98.1 F 58 L 16 91/43 96 02/06/20 19:43 64 18 114/64 95 02/06/20 18:36 61 18 125/65 98 02/06/20 17:32 98.3 F 60 18 117/70 95 Intake and Output 02/06/20 02/07/20 02/07/20 22:59 06:59 14:59 Other: Weight 77.111 kg 77.111 kg GENERAL: The patient is lying in bed and is not in acute distress. CHEST: The heart rate is regular rate rhythm. No murmurs to auscultation. No carotid bruit bilaterally. LUNG: Clear to auscultation bilaterally no wheezing noted throughout. Not labored breathing. ABDOMEN/GI: Bowel sounds present in all 4 quadrants. No tenderness to palpation throughout. NEUROLOGICAL: Higher mental function: The patient is awake, alert, oriented to self, place and time. Patient is slow to respond but is following simple commands. Sometimes I have to repeat the question twice and then she'll able to follow commands. No aphasia and no neglect. Cranial nerves: The pupils are round, equal and reactive to light and accommodation. Visual kaminski: Right upper quadrant hemianopsia to confrontation. . Extraocular movement is intact no nystagmus is noted. Facial sensation unable to assess because of her lack of cooperation. The facial strength is normal throughout. Hearing is normal bilaterally to hand rub. Tongue is midline and moved [id number] without any difficulty. She seemed to hypophonic. Shoulder shrug is normal bilaterally. Motor: Gait is deferred because of lack of cooperation. The strength is 5 over 5 of bilateral upper extremities while able to lift bilateral lower extreme a above gravity and no drift. Normal tone and bulk. Cerebellum: Had a hard time assessing the finger to nose because of the patient lack of cooperation. Sensation: Sensation was inconsistent. Reflexes (right/left): 1+ throughout. Plantars are downgoing bilaterally. Results The calcium is 9.4. AST 27 ALTs 20. Urinalysis is negative for urinary tract infection. - Laboratory Findings CBC and BMP: 02/07/20 04:23 02/07/20 04:23 Abnormal Lab Findings: Abnormal Labs 02/06/20 02/06/20 02/06/20 18:01 18:01 18:01 RBC Hgb Hct MCHC 30.6 L D-Dimer Sodium 131 L Carbon Dioxide 20 L Glucose 104 H Alkaline Phosphatase 174 H TSH Free T4 Urine Opiates Screen Detected H U Tricyclic Antidepress Detected H Mcpherson 02/06/20 02/06/20 02/07/20 18:01 19:43 04:23 RBC 3.50 L Hgb 10.4 L Hct 31.4 L MCHC D-Dimer 0.63 H Sodium Carbon Dioxide Glucose Alkaline Phosphatase TSH 5.490 H Free T4 0.51 L Urine Opiates Screen U Tricyclic Antidepress Mcpherson 2.1 H* Assessment and Plan Assessment: 65-year-old woman that presented emergency department on the 02/06/2020 for slurring the speech and confusion for last 2 weeks. 1.Toxic metabolic encephalopathy due pontentially toxic lithium at the level of 2.1 and the normal is 0.6-1.2. As well as encephalopathy possibly due to due to hypothyroidism component of opiate use (Morphine) 2. Old left occipital and right temporal stroke (per MRI 08/17/2019) 3. History of PRES with previous (MRI Brain 08/17/2019 and that was reported as diffuse abnormal signal throughout the bilateral cerebellum and cerebrum. There is a mass effect and mild compression of the lateral margin of the fourth ventricle on the left. 4. There are numerous punctate area of enhancement including cerebellar and the supratentorial) 5. History of seizures due to #2 and #3 6. History of bipolar 7. History of hypertension 8. History of sleep apnea 9. Chronic pain syndrome Plan: CT of the head is reported as no acute intracranial abnormality. Convexity cortical hypodensity in the left occipital lobe similar to the old exam (the comparison was on 08/24/2019). Clinical significance is not clear at. No atrophy seen. I personally reviewed the CT of the head and I agree the patient does have an old cortical hypodensity in the left occipital. Plavix 75 was restarted and I started the Lipitor 40 mg daily for second or stroke prophylaxis. Patient cannot have aspirin because of the aspirin overdose in August 2019. I started the patient on Vimpat 50 mg twice a day for her history of seizures. I did not start the patient on Keppra because of the patient mood disorder which Keppra Worsens it. Regarding the suggestion of Lamictal from Dr. Levy's he recommended Lamictal 151 tablet twice a day and after 3 days to go up to 300% for some reason the next day the different neurologist recommended Keppra still not sure if the patient had a rash or not. EEG is not warranted since she is awake and responding. I will repeat MRI the brain to see if there is resolution of the press that was seen in August 2019 MRI of the brain. And to evaluate if there is any new lesions. Psychiatry is consulted for the history of bipolar. Regarding the management of hypertension we'll defer to the primary team. We'll attempt to contact the patient's son. Thank you for the consultation. Noble Fontanez MD Neuro-hospitalist Time with Patient: Greater than 30
[2020-02-07] MEDS: LEVOTHYROXINE 50 MCG TAB PO SCH (16:29)
[2020-02-07] MEDS: CITALOPRAM HYDROBROMIDE 20 MG TAB PO SCH (16:29)
[2020-02-07] MEDS: MORPHINE SULFATE IR 15 MG TABLET PO SCH ×2 (16:30→21:21)
--- NOTE | 2020-02-07 19:10 | PN ---
PROGRESS NOTE DATE OF SERVICE: 02/08/2020 This 65-year-old woman was admitted with change in mental status and confusion, being closely monitored. The patient also has lithium toxicity. [place] level more than 2.1. Nephrology has seen the patient. Recommend IV fluids and check repeat lithium level. If the lithium levels are not trending down and change in mental status, not improving, Nephrology is planning hemodialysis. Neurology is also following the patient closely. Neurology has recommended continued monitoring and antiplatelet agents. Past medical history reviewed. REVIEW OF SYSTEMS: CARDIOVASCULAR SYSTEM: No angina or palpitations. RESPIRATIONS: As mentioned earlier. GI as mentioned earlier. : No dysuria. NERVOUS SYSTEM: No numbness or weakness. MEDICATION: Reviewed and include: Tylenol, Lipitor, Celexa, Plavix, vitamin D2, Lidoderm, MS-IR and Narcan. PHYSICAL EXAM: Patient is alert, oriented x3. Pulse 64. Blood pressure 127/68, respiration 17, temperature 98.2, pulse ox 98% on room air. HEENT : Conjunctivae normal. NECK: No JVD. CARDIOVASCULAR: S1, S2 muffled. RESPIRATORY: Breath sounds diminished in the bases. A few scattered rhonchi. ABDOMEN: Soft. Nontender. Nervous System: Diffusely weak. LABS: Hemoglobin 10.4. TSH is 5.490 and free T4 is 0.51. The lithium level is 2.1 and 1.7. ASSESSMENT: 1. Change in mental status, acute, possibly secondary to acute lithium toxicity. 2. Hyponatremia. 3. History of aspirin overdose, hemodialysis, seizures and hypertensive urgency previously. 4. History of chronic obstructive pulmonary disease. 5. Hypothyroidism. 6. Fibromyalgia. 7. Hypertension. 8. History of seizure disorder. 9. History of sleep apnea. 10.History of bipolar, anxiety, depression, PTSD, borderline personality disorder, antisocial disorder. 11.History of Pres encephalopathy. 12.History of MRSA. 13.History of back surgery. 14.Neck surgery. 15.History of cocaine addiction remotely. 16.Obesity with body mass of 31.1. 17.FULL CODE. RECOMMENDATIONS AND DISCUSSION: I recommend to continue current medications, management and symptomatic treatment. Otherwise at this time I would recommend continue IV fluids and hold lithium. Continue the rest of the medications. Levothyroxine was initiated 50 mcg. Otherwise, continue to monitor. Prognosis guarded. Further recommendations to follow. Will closely monitor. Lipitor has been increased to 40 mg. Further recommendations to follow. Renal function functions well maintained currently, but we will continue to monitor. MMODL / IJN: [id number] /
[2020-02-07] MEDS ORDERED: OXcarbazepine 150 MG TAB PO SCH (21:00)
[2020-02-07] MEDS: LACOSAMIDE 50 MG TABLET PO SCH (21:21)
[2020-02-07] MEDS: ATORVASTATIN 40 MG TAB PO SCH (21:21)
--- NOTE | 2020-02-07 21:41 | MR ---
EXAMINATION TYPE: MR brain wo con DATE OF EXAM: 02/07/2020 COMPARISON: 08/17/2019 HISTORY: AMS, unsteady gait Multiplanar multiecho imaging of the brain was performed without contrast. Ventricles have normal size. There is no mass effect nor midline shift. There is no sign of intracran ial hemorrhage. On the diffusion and T2 and FLAIR images there is abnormal 2 x 1 cm area of cortical increased signal in the left occipital lobe. There is smaller similar area that measures 1 cm in the right occipital lobe. This could be an acute infarct. Corpus callosum is intact. The brainstem is intact. There is some mild Diffuse mild increased signal in the periventricular white matter on the FLAIR images IMPRESSION: There is posterior occipital lobe cortical abnormal signal consistent with acute and chronic infarcts which overall are smaller than the old MR scan of 08/17/2019. There is clearing to large extent the a bnormal white matter signal in both cerebral hemispheres evident on the old exam. .
[2020-02-07] MEDS: QUEtiapine 400 MG TAB PO SCH (22:17)
[2020-02-08] MEDS: LEVOTHYROXINE 50 MCG TAB PO SCH (05:24)
[2020-02-08] MEDS: SODIUM CHLORIDE 0.9% 1,000 ML IV SCH (06:49)
[2020-02-08] MEDS: CITALOPRAM HYDROBROMIDE 20 MG TAB PO SCH (08:04)
[2020-02-08] MEDS: CLOPIDOGREL 75 MG TAB PO SCH (08:04)
[2020-02-08] MEDS: LACOSAMIDE 50 MG TABLET PO SCH ×2 (08:04→21:06)
[2020-02-08] MEDS: MORPHINE SULFATE IR 15 MG TABLET PO SCH ×4 (08:04→21:06)
[2020-02-08 09:21] LABS: African American GFR (CKD) >90 (>60 ml/min/1.73 sqM); Anion Gap 3 mmol/L; Blood Urea Nitrogen 13 mg/dL (7-17); Calcium 9.3 mg/dL (8.4-10.2); Carbon Dioxide 22 mmol/L (22-30); Chloride 111 mmol/L (98-107); Glucose 125 mg/dL (74-99); Non-African American GFR(CKD) 82 (>60 ml/min/1.73 sqM); Potassium 4.5 mmol/L (3.5-5.1); Sodium 136 mmol/L (137-145)
[2020-02-08 09:37] LABS: Basophils % (A) 1 %; Eosinophils # (A) 0.2 k/uL (0-0.7); Eosinophils % (A) 3 %; HCT 35.7 % (34.0-46.0); HGB 11.9 gm/dL (11.4-16.0); Lymphocytes # (A) 2.4 k/uL (1.0-4.8); Lymphocytes % (A) 37 %; MCH 29.8 pg (25.0-35.0); MCHC 33.3 g/dL (31.0-37.0); MCV 89.5 fL (80.0-100.0); Monocytes # (A) 0.4 k/uL (0-1.0); Monocytes % (A) 6 %; Neutrophils # (A) 3.2 k/uL (1.3-7.7); Neutrophils % (A) 49 %; Platelet Count 253 k/uL (150-450); RBC 3.99 m/uL (3.80-5.40); RDW 14.5 % (11.5-15.5); WBC 6.5 k/uL (3.8-10.6)
[2020-02-08 11:55] VITALS: BMI 31.1
--- NOTE | 2020-02-08 12:48 | P.PN ---
Subjective Patient is seen in follow for lithium toxicity. [place] level 1.0 this morning. Renal function at baseline. Denies chest pain or shortness of breath. More awake and alert today. Vital signs are stable. General: The patient appeared well nourished and normally developed. HEENT: Head exam is unremarkable. Neck is without jugular venous distension. LUNGS: Lungs are clear to auscultation and percussion. Breath sounds decreased. HEART: Rate and Rhythm are regular. ABDOMEN: Soft, nontender. EXTREMITITES: Trace edema. Objective - Vital Signs Vital signs: Vital Signs Temp 98.2 F 02/08/20 08:00 Pulse 57 L 02/08/20 08:00 Resp 57 H 02/08/20 08:00 BP 96/50 02/08/20 08:00 Pulse Ox 96 02/08/20 08:00 Intake & Output 02/07/20 02/08/20 02/08/20 18:59 06:59 18:59 Weight 77.111 kg 77.111 kg Other: Voiding Method Toilet Toilet # Voids 2 1 - Labs CBC & Chem 7: 02/08/20 07:55 02/08/20 07:55 Labs: Abnormal Lab Results - Last 24 Hours (Table) 02/07/20 02/08/20 Range/Units 04:23 07:55 Sodium 136 L (137-145) mmol/L Chloride 111 H (98-107) mmol/L Glucose 125 H (74-99) mg/dL [place] 1.7 H (0.5-1.2) mmol/L Microbiology - Last 24 Hours (Table) 02/06/20 20:10 Blood Culture - Preliminary Blood No Growth after 24 hours Assessment and Plan Plan: Assessment: 1. Acute on chronic lithium toxicity. Patient states she's been on lithium for several years. [place] level 1.0 this morning. 2. History of bipolar disorder. 3. Hypovolemic hyponatremia improved with IV hydration. 4. Metabolic acidosis. Improved. 5. Encephalopathy. Likely drug-induced. Neurology following. 6. History of PRES. 7. History of salicylate overdose. Plan: Hep-Lock IV fluids. No need for renal replacement therapy. I will sign off. Please call with any questions or concerns.
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
--- NOTE | 2020-02-08 15:01 | P.PN ---
Subjective Progress Note Date: 02/08/20 This is a 65-year-old female who was recently admitted with change in mental status along with confusion and is being closely monitored. Multiple medical consultations including nephrology, neurology, and psychiatry following. [place] level is normal today although will be discontinuing lithium. Patient initiated on Vimpat. Patient to have an MRI of the brain. Patient remains on Plavix along with Lipitor. Will avoid aspirin given recent overdose earlier this year. Patient is alert and oriented 3 and responding appropriately to commands. A consult was placed to speech pathology for evaluation as patient continues to have expressive aphasia. Patient currently denies any headache, dizziness, but is reporting some generalized weakness and continues to complain of pain that is generalized and requesting pain medications during exam. [place] level today is 1.0. Review of systems: Constitutional: No reports of fatigue, fever, or chills Cardiovascular: No reports of chest pain or palpitations Respiratory: No reports of shortness of breath or cough GI: No reports of nausea, vomiting, or diarrhea : No reports of dysuria or retention Neurovascular: Reports weakness and generalized pain especially in the right thumb All medications have been reviewed Active Medications Acetaminophen (Acetaminophen Tab 325 Mg Tab) 650 mg PO Q6HR PRN PRN Reason: Fever and/ or Pain Atorvastatin Calcium (Atorvastatin 40 Mg Tab) 40 mg PO HS [facility] Last Admin: 02/07/20 21:21 Dose: 40 mg Documented by: Citalopram Hydrobromide (Citalopram Hydrobromide 20 Mg Tab) 40 mg PO DAILY [facility] Last Admin: 02/08/20 08:04 Dose: 40 mg Documented by: Clopidogrel Bisulfate (Clopidogrel 75 Mg Tab) 75 mg PO DAILY [facility] Last Admin: 02/08/20 08:04 Dose: 75 mg Documented by: Ergocalciferol (Ergocalciferol 50,000 Unit Cap) 50,000 unit PO Q7D [facility] Lacosamide (Lacosamide 50 Mg Tablet) 50 mg PO BID [facility] Last Admin: 02/08/20 08:04 Dose: 50 mg Documented by: Levothyroxine Sodium (Levothyroxine 50 Mcg Tab) 50 mcg PO 0630 [facility] Last Admin: 02/08/20 05:24 Dose: 50 mcg Documented by: Lidocaine (Lidocaine 5% Patch) 1 patch TOPICAL DAILY PRN PRN Reason: Pain Last Admin: 02/08/20 06:20 Dose: 1 patch Documented by: Melatonin (Melatonin 3 Mg Tablet) 3 mg PO HS PRN PRN Reason: Insomnia Meloxicam (Meloxicam 7.5 Mg Tab) 15 mg PO DAILY PRN PRN Reason: Pain Morphine Sulfate (Morphine Sulfate Ir 15 Mg Tablet) 30 mg PO QID [facility] Last Admin: 02/08/20 13:03 Dose: 30 mg Documented by: Naloxone HCl (Naloxone 0.4 Mg/Ml 1 Ml Vial) 0.2 mg IV Q2M PRN PRN Reason: Opioid Reversal Patient's Own ( Naloxone Hcl [Narcan ] 4 Mg [place]) 1 spray MISCELLANE ONCE PRN PRN Reason: overdose Quetiapine Fumarate (Quetiapine 400 Mg Tab) 800 mg PO HS [facility] Last Admin: 02/07/20 22:17 Dose: 800 mg Documented by: Objective - Vital Signs Vital signs: Vital Signs Temp 98.2 F 02/08/20 08:00 Pulse 57 L 02/08/20 08:00 Resp 57 H 02/08/20 08:00 BP 96/50 02/08/20 08:00 Pulse Ox 96 02/08/20 08:00 Intake & Output 02/07/20 02/08/20 02/08/20 18:59 06:59 18:59 Weight 77.111 kg 77.111 kg Other: Voiding Method Toilet Toilet # Voids 2 1 - Exam Gen: This is a 65-year-old female sitting up in bed, awake, alert and oriented 3, well-developed, well-nourished. Temp Is 98.2F, pulse is 57, respirations are 16, blood pressure is 96/50, oxygen saturation is 96% on room air. HEENT: Head is atraumatic, normocephalic. Pupils equal, round. Sclerae is anicteric. NECK: Supple. No JVD. No lymphadenopathy. No thyromegaly. LUNGS: Sounds diminished in the bases with no wheezes or rhonchi. No intercostal retractions. HEART: S1, S2 are muffled ABDOMEN: Soft. Bowel sounds are present. No masses. No tenderness. EXTREMITIES: No pedal edema. No calf tenderness. NEUROLOGICAL: Patient is awake, alert and oriented x3. Diffusely weak. Slightly delayed in speech which is chronic - Labs CBC & Chem 7: 02/08/20 07:55 02/08/20 07:55 Labs: Abnormal Lab Results - Last 24 Hours (Table) 02/07/20 02/08/20 Range/Units 04:23 07:55 Sodium 136 L (137-145) mmol/L Chloride 111 H (98-107) mmol/L Glucose 125 H (74-99) mg/dL [place] 1.7 H (0.5-1.2) mmol/L Microbiology - Last 24 Hours (Table) 02/06/20 20:10 Blood Culture - Preliminary Blood No Growth after 24 hours Assessment and Plan Assessment: Change in mental status, acute, possibly secondary to acute lithium toxicity Hyponatremia, improved History of aspirin overdose, hemodialysis, seizures and hypertensive urgency previously History of chronic obstructive pulmonary disease Hypothyroidism Fibromyalgia Hypertension history of seizure disorder History of sleep apnea History of bipolar, anxiety, depression, PTSD and borderline personality disorder, antisocial disorder History of encephalopathy History of MRSA History of back surgery Neck surgery history of cocaine addiction remotely obesity with a body mass index of 31.1 Full code Recommendations and discussion: Recommend to continue current medications, management, and symptomatic treatment. Nephrology along with psychiatry and neurology following. [place] levels improved today and will discontinue lithium at this time. Patient is maintained on Plavix along with Lipitor and will continue at this time. Patient underwent MRI of the brain showing posterior occipital lobe cortical abnormal signal consistent with acute and chronic infarcts which overall are smaller than the old MRI as noted in August 2019 along with the clearing to large extent with abnormal white matter signal in both cerebral hemispheres that is evident on the old exam. Patient was started on Vimpat per neurology. Consult speech therapy is currently pending at this time as patient continues to have expressive aphasia. Due to multiple complex medical issues, prognosis is guarded. Further recommendations to follow.
--- NOTE | 2020-02-08 16:07 | P.PN ---
Subjective Progress Note Date: 02/08/20 Patient was seen at bedside and stated she is thinking clearly today compared to yesterday. She denies of any new weakness, numbness or visual disturbance. She denies of any headache, nausea or vomiting. And the patient does not know what medication she is on she stated that she is on atorvastatin. Regarding seizure medication she cannot tell me even after mentioning Lamictal or Keppra as she wasn't convinced that she is on doses and the she doesn't think she is on antiepileptic drug. She was able to tell me that she is following up with a neurologist and she told me that she follows up with Dr. rS as an outpatient. The patient had MRI of the brain on 02/07/2020 and was reported as there is posterior occipital lobe cortical abnormal signal consistent with acute and chronic infarct which overall are smaller than the old MRI of the brain on the 08/17/19. There is clearing to a large extent the the abnormal white matter signal in both cerebral hemispheres evident on t the old exam. I personally reviewed the MRI the brain and I felt the left occipital stroke was old and is seated this is seem older than that previous MRI on 08/17/2019. I also felt the patient had the PRES which resolved on this MRI compared to the previous 08/17/2019. I personally spoke to Dr. Prosper Newberry regarding the my finding that I felt there is no acute left occipital he reviewed it and that he was in agreement. And placed an Addendum stating that the case is reviewed the period artifact suspected on the diffusion weighted image posture occipital lobe. Finding consistent with old infarct or encephalomalacia. No acute or subacute infarct at this level. currently Objective - Vital Signs Vital signs: Vital Signs Temp 98.2 F 02/08/20 08:00 Pulse 57 L 02/08/20 08:00 Resp 57 H 02/08/20 08:00 BP 96/50 02/08/20 08:00 Pulse Ox 96 02/08/20 08:00 Intake & Output 02/07/20 02/08/20 02/08/20 18:59 06:59 18:59 Weight 77.111 kg 77.111 kg Other: Voiding Method Toilet Toilet # Voids 2 1 - Exam GENERAL: The patient is lying in bed and is not in acute distress. CHEST: The heart rate is regular rate rhythm. No murmurs to auscultation. No carotid bruit bilaterally. LUNG: Clear to auscultation bilaterally no wheezing noted throughout. Not labored breathing. ABDOMEN/GI: Bowel sounds present in all 4 quadrants. No tenderness to palpation throughout. NEUROLOGICAL: Higher mental function: The patient is awake, alert, oriented to self, place and time. Patient is slow to respond but is following simple commands. Sometimes I have to repeat the question twice and then she'll able to follow commands. No aphasia and no neglect. Cranial nerves: The pupils are round, equal and reactive to light and accommodation. Visual kaminski: Right upper quadrant hemianopsia to confrontation. . Extraocular movement is intact no nystagmus is noted. Facial sensation unable to assess because of her lack of cooperation. The facial strength is normal throughout. Hearing is normal bilaterally to hand rub. Tongue is midline and moved [id number] without any difficulty. She seemed to hypophonic. Shoulder shrug is normal bilaterally. Motor: Gait is deferred because of lack of cooperation. The strength is 5 over 5 of bilateral upper extremities while able to lift bilateral lower extreme a above gravity and no drift. Normal tone and bulk. Cerebellum: Had a hard time assessing the finger to nose because of the patient lack of cooperation. Sensation: Sensation was inconsistent. Reflexes (right/left): 1+ throughout. Plantars are downgoing bilaterally. - Labs CBC & Chem 7: 02/08/20 07:55 02/08/20 07:55 Labs: Abnormal Lab Results - Last 24 Hours (Table) 02/07/20 02/08/20 Range/Units 04:23 07:55 Sodium 136 L (137-145) mmol/L Chloride 111 H (98-107) mmol/L Glucose 125 H (74-99) mg/dL [place] 1.7 H (0.5-1.2) mmol/L Microbiology - Last 24 Hours (Table) 02/06/20 20:10 Blood Culture - Preliminary Blood No Growth after 24 hours Assessment and Plan Assessment: 65-year-old woman that presented emergency department on the 02/06/2020 for slurring the speech and confusion for last 2 weeks. 1.Toxic metabolic encephalopathy due pontentially toxic lithium at the level of 2.1 and the normal is 0.6-1.2. As well as encephalopathy possibly due to due to hypothyroidism andcomponent of opiate use (Morphine)---improved 2. Old left occipital and right temporal stroke (per MRI 08/17/2019). Repeat MRI show old left occipital 3. History of PRES with previous (MRI Brain 08/17/2019 and that was reported as diffuse abnormal signal throughout the bilateral cerebellum and cerebrum. There is a mass effect and mild compression of the lateral margin of the fourth ventricle on the left.----resolved 4. There are numerous punctate area of enhancement including cerebellar and the supratentorial) 5. History of seizures due to #2 and #3 6. History of bipolar 7. History of hypertension 8. History of sleep apnea 9. Chronic pain syndrome Plan: CT of the head is reported as no acute intracranial abnormality. Convexity cortical hypodensity in the left occipital lobe similar to the old exam (the comparison was on 08/24/2019). Clinical significance is not clear at. No atrophy seen. I personally reviewed the CT of the head and I agree the patient does have an old cortical hypodensity in the left occipital. MRI of the brain on 02/07/2020 and was reported as there is posterior occipital lobe cortical abnormal signal consistent with acute and chronic infarct which overall are smaller than the old MRI of the brain on the 08/17/19. There is clearing to a large extent the the abnormal white matter signal in both cerebral hemispheres evident on t the old exam. I personally reviewed the MRI the brain and I felt the left occipital stroke was old and is seated this is seem older than that previous MRI on 08/17/2019. I also felt the patient had the PRES which resolved on this MRI compared to the previous 08/17/2019. I personally spoke to Dr. Prosper Newberry regarding the my finding that I felt there is no acute left occipital he reviewed it and that he was in agreement. And placed an Addendum stating that the case is reviewed the period artifact suspected on the diffusion weighted image posture occipital lobe. Finding consistent with old infarct or encephalomalacia. No acute or subacute infarct at this level. Continued Plavix 75mg daily and Lipitor 40 mg daily for second or stroke prophylaxis. Patient cannot have aspirin because of the aspirin overdose in August 2019. I started the patient on Vimpat 50 mg twice a day for her history of seizures. I did not start the patient on Keppra because of the patient mood disorder which Keppra Worsens it. Regarding the suggestion of Lamictal from Dr. Villalpando's he recommended Lamictal 151 tablet twice a day and after 3 days to go up to 300mg. But for some reason the next day the different neurologist recommended Keppra still not sure if the patient had a rash or not. EEG is not warranted since she is awake and responding. Psychiatry is consulted for the history of bipolar. Regarding the management of hypertension we'll defer to the primary team. Upon discharge the patient needs to follow-up with her neurologist (Dr. Sr) within the 2-3 weeks. There is no further neurological workup from neurology perspective. We'll sign off. Please reconsult if needed Noble Fontanez MD Neuro-hospitalist Time with Patient: Less than 30
[2020-02-08] MEDS: QUEtiapine 400 MG TAB PO SCH (21:06)
[2020-02-08] MEDS: ATORVASTATIN 40 MG TAB PO SCH (21:06)
[2020-02-09] MEDS: LEVOTHYROXINE 50 MCG TAB PO SCH (05:17)
[2020-02-09 07:21] VITALS: BP 118/73; PULSE 53; RESP 16; TEMP 97.8
[2020-02-09] MEDS: CITALOPRAM HYDROBROMIDE 20 MG TAB PO SCH (07:35)
[2020-02-09] MEDS: CLOPIDOGREL 75 MG TAB PO SCH (07:35)
[2020-02-09] MEDS: MORPHINE SULFATE IR 15 MG TABLET PO SCH (07:35)
[2020-02-09] MEDS: LACOSAMIDE 50 MG TABLET PO SCH (07:35)
[2020-02-09 08:03] LABS: Basophils % (A) 1 %; Eosinophils # (A) 0.2 k/uL (0-0.7); Eosinophils % (A) 3 %; HCT 35.5 % (34.0-46.0); HGB 11.5 gm/dL (11.4-16.0); Hypochromasia Slight; Lymphocytes % (A) 32 %; MCH 29.5 pg (25.0-35.0); MCHC 32.4 g/dL (31.0-37.0); MCV 91.1 fL (80.0-100.0); Mean Platelet Volume 8.3; Monocytes # (A) 0.4 k/uL (0-1.0); Monocytes % (A) 6 %; Neutrophils # (A) 3.6 k/uL (1.3-7.7); Neutrophils % (A) 56 %; Platelet Count 276 k/uL (150-450); RDW 14.9 % (11.5-15.5); WBC 6.4 k/uL (3.8-10.6)
--- NOTE | 2020-02-09 09:52 | CDI ---
Documentation Clarification Form Date: 02/09/2020 08:55:26 AM From: Sydni Burciaga RN CCDS Admit Date: 02/08/2020 08:40:00 AM Patient Name: Nataly Vick Visit Number: [id number] Discharge Date: ATTENTION: The Clinical Documentation Specialists (CDI) and [facility] Coding Staff appreciate your assistance in clarifying documentation. Please respond to the clarification below the line at the bottom and electronically sign. The CDI & [facility] Coding staff will review the response and follow-up if needed. Please note: Queries are made part of the Legal Health Record. If you have any questions, please contact the author of this message via ITS. Dr. Pat Caban The diagnosis Acute Metabolic Encephalopathy was documented in the H&P 02/05 but is not noted in subsequent documentation. History/Risk Factors: 65-year-old female presented to the ED with slurred speech and confusion started two weeks prior. Medical History: COPD, Seizure disorder; HTN, Bipolar, Depression, PTSD, Borderline personality, Antisocial disorder. Clinical Indicators: Labs: NA 131; TSH 5.490; Free T4 0.51; Alk Phos 174; D-Dimer 0.63; Toxicology Urine Opiates Screen Detected; Urine Tricyclic Antidepress Detected; Pease 02/05 2.1; 02/06 1.7; 02/07 1.0 02/05 H&P: Change in mental status possible acute metabolic encephalopathy, drug induced. 02/06 & 02/07 Internal Medicine Progress Notes: Change in mental status, acute, possibly secondary to acute lithium toxicity. 02/06 Neuro Consult: Toxic Metabolic encephalopathy due to potentially toxic lithium at the level of 2.1 and normal is 0.6 1.2. As well as encephalopathy possibly due to hypothyroidism component of opiate use (Morphine) 02/07 Psychiatric Consult: Suspect altered mental status secondary to lithium toxicity versus hypothyroidism. Treatment: 02/05 0.9 NS 500cc/bolus; 0.9NS 125 cc/hr d/c 02/07; 02/06 Pease Held; 02/06 Seroquel PO HS [facility] Neuro consult see above Psychiatric consult see above Please clarify if the Change in Mental status drug induced was: Toxic Metabolic Encephalopathy Present/active this admission Toxic Metabolic Encephalopathy Treated and resolved this admission Toxic Metabolic Encephalopathy Ruled out Other, please specify Clinically unable to determine (Last Query Form Revision: November 2018) Toxic Metabolic Encephalopathy Treated and resolved this admission MTDD
[2020-02-09 11:29] LABS: African American GFR (CKD) 90.9 (60.0-200.0); Anion Gap 7.7 mmol/L (4.00-12.00); BUN/Creat Ratio 17.5 Ratio (12.00-20.00); Calcium 9.2 mg/dL (8.7-10.3); Carbon Dioxide 22.3 mmol/L (21.6-31.8); Non-African American GFR(CKD) 78.5 (60.0-200.0); Potassium 4.2 mmol/L (3.5-5.5)
--- NOTE | 2020-02-09 12:11 | P.DS ---
Providers Date of admission: 02/08/20 08:40 Expected date of discharge: 02/09/20 Attending physician: Pat Caban Consults: 02/06/20 18:50 Consult Physician Routine Consulting Provider: Cynthia Villalpando Consult Reason/Comments: AMS Do you want consulting provider notified?: Yes 02/07/20 11:04 Consult Physician Routine Consulting Provider: Nerissa Manuel Consult Reason/Comments: lithium toxicity Do you want consulting provider notified?: Yes 02/07/20 14:18 Consult Physician Routine Consulting Provider: Hayden Mendoza Consult Reason/Comments: AMS hx of bipolar Do you want consulting provider notified?: Yes [facility] care [facility]: [facility] Course: Final diagnosis Change in mental status, acute toxic metabolic encephalopathy, present on admission, possibly secondary to acute lithium toxicity Hyponatremia, improved History of aspirin overdose, hemodialysis, seizures and hypertensive urgency previously History of chronic obstructive pulmonary disease Hypothyroidism Fibromyalgia Hypertension history of seizure disorder History of sleep apnea History of bipolar, anxiety, depression, PTSD and borderline personality disorder, antisocial disorder History of encephalopathy History of MRSA History of back surgery Neck surgery history of cocaine addiction remotely obesity with a body mass index of 31.1 Full code Discharge disposition Patient is being discharged in a stable condition with guarded prognosis to home. Patient will follow-up with Dr. Self upon discharge. Patient also instructed to follow-up with Dr. Sr neurology early this week and will continue with [facility] in the outpatient setting. She will also follow- up with her psychiatrist upon discharge as well. Patient will be continued on Vimpat as lithium has been discontinued. Total time taken is greater than 35 minutes. History of present illness This is a 65-year-old female who was recently admitted with altered mental status and confusion and was being closely monitored. Patient was found to have lithium toxicity and lithium is being discontinued. Patient was seen and evaluated by nephrology, neurology, and psychiatry. Recommend to continue with Vimpat and follow-up with Dr. Sr her neurologist in the outpatient setting. Patient also needs to follow-up with psychiatry in the outpatient as well and continue with current medications. Patient has a history of stroke in the past and continues to have gait dysfunction and is requiring a walker and a prescription was provided. She was seen and evaluated by physical therapy during hospitalization. [facility] Patient again educated and instructed to discontinue lithium and follow-up with Dr. Sr this week along with her primary care provider. Patient states she receives psychiatric medications from her primary care provider. Patient will need to establish with a psychiatrist in the outpatient setting. Patient is alert and oriented 3. Currently no reports of chest pain, shortness of breath, or palpitations. Patient is afebrile. No reports of nausea or vomiting and patient is tolerating diet. Guarded prognos is. On exam vital signs are stable. Temp is 97.8F, pulse is 53, respirations are 16, blood pressure is 118/73, oxygen saturation is 100% on room air. Cardio S1, S2 are muffled. Respiratory shows diminished breath sounds at the bases with no wheezing or rhonchi noted. Abdomen is soft and nontender. Nervous system shows no focal deficits. Please refer to medication reconciliation sheet for a list of medications. Patient Condition at Discharge: Stable Plan - Discharge Summary Discharge Rx Participant: No New Discharge Prescriptions: New Atorvastatin [Lipitor] 40 mg PO HS 30 Days #30 tab Melatonin 3 mg PO HS PRN #10 tablet PRN Reason: Insomnia Lacosamide [Vimpat] 50 mg PO BID 7 Days #14 tablet Continue Ergocalciferol (Vitamin D2) [Vitamin D2] 50,000 unit PO Q7D Levothyroxine Sodium [Synthroid] 50 mcg PO DAILY Citalopram Hydrobromide [CeleXA] 40 mg PO DAILY Lidocaine 5% Patch [Lidoderm 5% Patch] 1 patch TOPICAL DAILY PRN PRN Reason: Pain Morphine Sulfate Ir [MSIR] 30 mg PO QID QUEtiapine FUMARATE [SEROquel] 800 mg PO HS Naloxone HCl [Narcan] 1 spray NASAL ONCE PRN PRN Reason: overdose Clopidogrel [Plavix] 75 mg PO DAILY Meloxicam 15 mg PO DAILY PRN PRN Reason: Pain Discontinued [place] Carbonate [[place] Carbonate ER] 450 mg PO HS OXcarbazepine [Trileptal] 150 mg PO BID 30 Days #60 tab Atorvastatin [Lipitor] 10 mg PO HS traZODone HCL 300 mg PO HS Discharge Medication List Ergocalciferol (Vitamin D2) [Vitamin D2] 50,000 unit PO Q7D 11/25/17 [History] Citalopram Hydrobromide [CeleXA] 40 mg PO DAILY 08/11/19 [History] Levothyroxine Sodium [Synthroid] 50 mcg PO DAILY 08/11/19 [History] Clopidogrel [Plavix] 75 mg PO DAILY 02/06/20 [History] Lidocaine 5% Patch [Lidoderm 5% Patch] 1 patch TOPICAL DAILY PRN 02/06/20 [History] Meloxicam 15 mg PO DAILY PRN 02/06/20 [History] Morphine Sulfate Ir [MSIR] 30 mg PO QID 02/06/20 [History] Naloxone HCl [Narcan] 1 spray NASAL ONCE PRN 02/06/20 [History] QUEtiapine FUMARATE [SEROquel] 800 mg PO HS 02/06/20 [History] Atorvastatin [Lipitor] 40 mg PO HS 30 Days #30 tab 02/09/20 [Rx] Lacosamide [Vimpat] 50 mg PO BID 7 Days #14 tablet 02/09/20 [Rx] Melatonin 3 mg PO HS PRN #10 tablet 02/09/20 [Rx] Follow up Appointment(s)/Referral(s): [facility], [NON-STAFF] - Malena Sr MD [Medical Doctor] - 3 Days Azam Self DO [Primary Care Provider] - 1-2 days Patient Instructions/Handouts: [place] Toxicity (DC) Activity/Diet/Wound Care/Special Instructions: Patient requires a walker at discharge secondary to unsteady gait Activity Limited until follow-up Continue current diet Discontinuing do not take lithium Follow-up with neurologist this week Follow up with psychiatry this week Follow-up with primary care provider upon discharge Discharge Disposition: HOME WITH HOME HEALTH SERVICES
[2020-02-11] MEDS ORDERED: ERGOCALCIFEROL 50,000 UNIT CAP PO SCH (09:00)
== END 2020-02-09 12:28 | disposition home health service (06) | DRG 92 ==
LOC: EC 17:24 → 5NMEDONC 18:48 → 6NMEDSUR 22:50 → 4SSUR 23:00 → OBSVTOIN 02-08 08:40
PROVIDERS: ADMIT Hospitalist; ATTEND Hospitalist
DX: G92 Toxic encephalopathy (principal); F31.30 Bipolar disorder, current episode depressed, mild or moderate severity, unspecified; E87.1 Hypo-osmolality and hyponatremia; E87.2 Acidosis; G93.89 Other specified disorders of brain; F14.21 Cocaine dependence, in remission; D50.9 Iron deficiency anemia, unspecified; G40.909 Epilepsy, unspecified, not intractable, without status epilepticus; J44.9 Chronic obstructive pulmonary disease, unspecified; F60.3 Borderline personality disorder; F50.9 Eating disorder, unspecified; E86.1 Hypovolemia; T43.595A Adverse effect of other antipsychotics and neuroleptics, initial encounter; I69.320 Aphasia following cerebral infarction; I69.393 Ataxia following cerebral infarction; G89.4 Chronic pain syndrome; M79.7 Fibromyalgia; F43.10 Post-traumatic stress disorder, unspecified; I10 Essential (primary) hypertension; E03.9 Hypothyroidism, unspecified; G47.30 Sleep apnea, unspecified; I45.10 Unspecified right bundle-branch block; R29.6 Repeated falls; M54.5 Low back pain; K58.9 Irritable bowel syndrome, unspecified; H91.90 Unspecified hearing loss, unspecified ear; H54.7 Unspecified visual loss; E66.9 Obesity, unspecified; Z68.31 Body mass index [BMI] 31.0-31.9, adult; Z79.02 Long term (current) use of antithrombotics/antiplatelets; Z79.890 Hormone replacement therapy; Z79.899 Other long term (current) drug therapy; Z87.891 Personal history of nicotine dependence; Z86.19 Personal history of other infectious and parasitic diseases; Z86.69 Personal history of other diseases of the nervous system and sense organs; Z86.14 Personal history of Methicillin resistant Staphylococcus aureus infection; Z87.440 Personal history of urinary (tract) infections; Z91.040 Latex allergy status; Z80.3 Family history of malignant neoplasm of breast; Z80.51 Family history of malignant neoplasm of kidney; Z82.41 Family history of sudden cardiac death; Z82.49 Family history of ischemic heart disease and other diseases of the circulatory system
CPT/HCPCS: 36415; 70450; 70551; 71046; 80048; 80053; 80178; 80306; 80320; 81003; 82140; 83520; 84439; 84443; 84484; 85025; 85379; 85610; 85730; 87040; 93005; 99285

== ENCOUNTER 2020-03-28 15:41 | Emergency (ER) | payer MEDICARE ==
--- NOTE | 2020-03-28 15:53 | ED ---
General Adult HPI - General Stated complaint: Fall Time Seen by Provider: 03/28/20 15:45 - History of Present Illness Initial comments: 65-year-old female presenting to the emergency department with a chief complaint of a fall. Patient states she was shopping at [employer] when she lost her balance and fell. Patient states her legs "give out" on her. Patient states she attempted to sit down and fell on the ground hitting her head. She denies any loss of consciousness. Denies any blood thinners. States she has pain in the occipital region of her head along with some tenderness in the neck. Patient denies any photosensitivity, nausea, vomiting, lightheadedness or dizziness at this time. She denies one-sided weakness or paresthesias. Patient brought to the ED via EMS. She had c-collar in place. - Related Data Home Medications Medication Instructions Recorded Confirmed Ergocalciferol (Vitamin D2) 50,000 unit PO Q7D 11/25/17 02/06/20 [Vitamin D2] Citalopram Hydrobromide [CeleXA] 40 mg PO DAILY 08/11/19 02/06/20 Levothyroxine Sodium [Synthroid] 50 mcg PO DAILY 08/11/19 02/06/20 Clopidogrel [Plavix] 75 mg PO DAILY 02/06/20 02/06/20 Lidocaine 5% Patch [Lidoderm 5% 1 patch TOPICAL DAILY PRN 02/06/20 02/06/20 Patch] Meloxicam 15 mg PO DAILY PRN 02/06/20 02/06/20 Morphine Sulfate Ir [MSIR] 30 mg PO QID 02/06/20 02/06/20 Naloxone HCl [Narcan] 1 spray NASAL ONCE PRN 02/06/20 02/06/20 QUEtiapine FUMARATE [SEROquel] 800 mg PO HS 02/06/20 02/07/20 Previous Rx's Medication Instructions Recorded Atorvastatin [Lipitor] 40 mg PO HS 30 Days #30 tab 02/09/20 Lacosamide [Vimpat] 50 mg PO BID 7 Days #14 tablet 02/09/20 Melatonin 3 mg PO HS PRN #10 tablet 02/09/20 Allergies Allergy/AdvReac Type Severity Reaction Status Date / Time latex Allergy Unknown Rash/Hives Verified 02/06/20 19:43 Review of Systems ROS Statement: Those systems with pertinent positive or pertinent negative responses have been documented in the HPI. ROS Other: All systems not noted in ROS Statement are negative. Past Medical History Past Medical History: COPD, CVA/TIA, Fibromyalgia, Hypertension, Seizure Disorder, Sleep Apnea/CPAP/BIPAP, Thyroid Disorder Additional Past Medical History / Comment(s): Chronic pain mostly in neck/low back, chronic aspirin user -was taking 4-8 tablets a day for about 40 years but had accidental aspirin overdose in August 2019-ended up going into kidney failure and having to have dialysis in ICU-[facility] and started having seizures and hypertensive emergency-sent to [facility] and diagnosed with PRES encephalopathy, pt states CVA 08/2019 with memory problems/word finding problems/slow speech and occasional slurred speech, eating disorder, iron anemia, bronchitis, sinus problems, IBS, UTI with sepsis, hypothyroid, migraines. History of Any Multi-Drug Resistant Organisms: MRSA Date of last positivie culture/infection: 2004 MDRO Source:: unknown Past Surgical History: Back Surgery, Tonsillectomy Additional Past Surgical History / Comment(s): Cervical and low back surgery Past Anesthesia/Blood Transfusion Reactions: No Reported Reaction Smoking Status: Former smoker - Past Family History Sister(s) Family Medical History: Cancer, Renal Disease Additional Family Medical History / Comment(s): breast cancer, kidney cancer Mother Family Medical History: Hypertension Father Additional Family Medical History / Comment(s): Father of a cardiac arrest. General Exam Limitations: no limitations General appearance: alert, in no apparent distress Head exam: Present: atraumatic, normocephalic, normal inspection Eye exam: Present: normal appearance, PERRL, EOMI Pupils: Present: normal accommodation ENT exam: Present: normal exam, normal oropharynx, mucous membranes moist, TM's normal bilaterally, normal external ear exam Neck exam: Present: normal inspection, full ROM. Absent: tenderness Respiratory exam: Present: normal lung sounds bilaterally. Absent: respiratory distress, wheezes, rales, rhonchi, stridor Cardiovascular Exam: Present: regular rate, normal rhythm, normal heart sounds GI/Abdominal exam: Present: soft. Absent: distended, tenderness, guarding, rebound, rigid Extremities exam: Present: normal inspection, full ROM, normal capillary refill. Absent: tenderness, pedal edema, joint swelling, calf tenderness Back exam: Present: normal inspection, full ROM. Absent: tenderness, CVA tenderness (R), CVA tenderness (L) Neurological exam: Present: alert, oriented X3, normal gait Psychiatric exam: Present: normal affect, normal mood Skin exam: Present: warm, dry, intact, normal color Course Vital Signs 03/28/20 15:59 Temperature 97.8 F Pulse Rate 94 Respiratory 16 Rate Blood Pressure 123/69 O2 Sat by Pulse 97 Oximetry EKG Findings - EKG Comments: EKG Findings:: Sinus rhythm, incomplete right bundle branch block, Q waves in lead 3. Ventricular rate 90, OK 150, QRS 90, QTC 459. Medical Decision Making - Medical Decision Making 65-year-old female presenting to emergency Department with chief complaint of fall. On physical examination, patient has skull contusion to the occipital region of the head. Some localized tenderness to paraspinal region of the cervical spine. There was no loss of consciousness. CBC CMP unremarkable. Chest x-ray is unremarkable. CT of the brain and C-spine shows no acute f ractures, dislocations, intracranial hemorrhage or midline shift. Her vital signs are within normal limits. Patient states she feels comfortable going home. She has no symptoms at this time. Case discussed with physician. - Lab Data Result diagrams: 03/28/20 16:02 03/28/20 16:02 Lab Results 03/28/20 03/28/20 03/28/20 Range/Units 16:02 16:02 16:02 WBC 10.3 (3.8-10.6) k/uL RBC 4.86 (3.80-5.40) m/uL Hgb 13.8 (11.4-16.0) gm/dL Hct 42.2 (34.0-46.0) % MCV 86.7 (80.0-100.0) fL MCH 28.3 (25.0-35.0) pg MCHC 32.7 (31.0-37.0) g/dL RDW 13.6 (11.5-15.5) % Plt Count 201 (150-450) k/uL MPV 7.8 Neutrophils % 77 % Lymphocytes % 15 % Monocytes % 4 % Eosinophils % 3 % Basophils % 0 % Neutrophils # 8.0 H (1.3-7.7) k/uL Lymphocytes # 1.6 (1.0-4.8) k/uL Monocytes # 0.4 (0-1.0) k/uL Eosinophils # 0.3 (0-0.7) k/uL Basophils # 0.0 (0-0.2) k/uL Sodium 138 (137-145) mmol/L Potassium 4.6 (3.5-5.1) mmol/L Chloride 107 (98-107) mmol/L Carbon Dioxide 23 (22-30) mmol/L Anion Gap 8 mmol/L BUN 14 (7-17) mg/dL Creatinine 0.92 (0.52-1.04) mg/dL Est GFR (CKD-EPI)AfAm 77 (>60 ml/min/1.73 sqM) Est GFR (CKD-EPI)NonAf 67 (>60 ml/min/1.73 sqM) Glucose 109 H (74-99) mg/dL Calcium 9.6 (8.4-10.2) mg/dL Magnesium 2.2 (1.6-2.3) mg/dL Total Bilirubin 0.5 (0.2-1.3) mg/dL AST 23 (14-36) U/L ALT 15 (4-34) U/L Alkaline Phosphatase 121 (38-126) U/L Troponin I <0.012 (0.000-0.034) ng/mL Total Protein 7.1 (6.3-8.2) g/dL Albumin 4.1 (3.5-5.0) g/dL Disposition Clinical Impression: Fall, Head injury Disposition: HOME SELF-CARE Condition: Stable Instructions (If sedation given, give patient instructions): Fall Prevention (ED) Additional Instructions: Follow with a primary care physician. Return to emergency department if symptoms worsen. Is patient prescribed a controlled substance at d/c from ED?: No Referrals: Azam Self DO [Primary Care Provider] - 1-2 days Time of Disposition: 18:09
[2020-03-28] MEDS ORDERED: SODIUM CHLORIDE 0.9% 1,000 ML IV STA (16:03)
[2020-03-28 16:06] VITALS: BP 123/69; PULSE 94; RESP 16; TEMP 97.8
[2020-03-28 16:26] LABS: Basophils % (A) 0 %; Eosinophils # (A) 0.3 k/uL (0-0.7); Eosinophils % (A) 3 %; HCT 42.2 % (34.0-46.0); HGB 13.8 gm/dL (11.4-16.0); Lymphocytes # (A) 1.6 k/uL (1.0-4.8); Lymphocytes % (A) 15 %; MCH 28.3 pg (25.0-35.0); MCHC 32.7 g/dL (31.0-37.0); MCV 86.7 fL (80.0-100.0); Mean Platelet Volume 7.8; Monocytes # (A) 0.4 k/uL (0-1.0); Monocytes % (A) 4 %; Neutrophils % (A) 77 %; Platelet Count 201 k/uL (150-450); RBC 4.86 m/uL (3.80-5.40); RDW 13.6 % (11.5-15.5); WBC 10.3 k/uL (3.8-10.6)
[2020-03-28 16:34] LABS: Albumin 4.1 g/dL (3.5-5.0); Calcium 9.6 mg/dL (8.4-10.2); Magnesium 2.2 mg/dL (1.6-2.3); Potassium 4.6 mmol/L (3.5-5.1); Total Bilirubin 0.5 mg/dL (0.2-1.3); Total Protein 7.1 g/dL (6.3-8.2)
--- NOTE | 2020-03-28 16:54 | CT ---
EXAMINATION TYPE: CT brain peteyine wo con DATE OF EXAM: 03/28/2020 COMPARISON: 08/24/2019 HISTORY: Dizziness and fall injury CT DLP: 1364.4 mGycm Automated exposure control for dose reduction was used. There is triangular-shaped area of hypodensity in the left occipital lobe measuring 4 x 2.5 cm consis tent with encephalomalacia and old infarct. There is no mass effect. Ventricles have fairly normal si ze. There is no midline shift. There is no evidence of intracranial hemorrhage. The calvarium is inta ct. There is plate with screws fusing anteriorly the cervical spine at C5-6. There is mild cervical kypho tic curvature. There is no evidence of cervical spine fracture. Facet joints are intact. Skull base i s intact. Mastoid sinuses appear normal. IMPRESSION: Previous cervical spine surgery. Spondylosis at C6-7. Spine unchanged. Encephalomalacia left occipital lobe consistent with old infarct which is more well-defined than prev ious exam. No acute intracranial abnormality.
--- NOTE | 2020-03-28 17:53 | XR ---
EXAMINATION TYPE: XR chest 2V DATE OF EXAM: 03/28/2020 COMPARISON: 02/06/2020 HISTORY: Fall. Pain. TECHNIQUE: 2 views FINDINGS: There is some mild linear density at the lung bases. Upper lung kaminski are clear. Heart siz e is normal. There is no heart failure. There is no pleural effusion. IMPRESSION: There is some mild atelectasis and linear infiltrate at the lung bases unchanged compared to old exam. No heart failure.
== END 2020-03-28 18:20 | disposition home or self-care (01) ==
LOC: EC 15:41
DX: S00.03XA Contusion of scalp, initial encounter (principal); F41.9 Anxiety disorder, unspecified; F31.9 Bipolar disorder, unspecified; F43.10 Post-traumatic stress disorder, unspecified; M79.7 Fibromyalgia; I10 Essential (primary) hypertension; G40.909 Epilepsy, unspecified, not intractable, without status epilepticus; G47.30 Sleep apnea, unspecified; G89.29 Other chronic pain; M54.5 Low back pain; M54.2 Cervicalgia; E03.9 Hypothyroidism, unspecified; Z79.02 Long term (current) use of antithrombotics/antiplatelets; Z79.890 Hormone replacement therapy; Z79.891 Long term (current) use of opiate analgesic; Z79.899 Other long term (current) drug therapy; Z91.040 Latex allergy status; Z86.73 Personal history of transient ischemic attack (TIA), and cerebral infarction without residual deficits; Z99.89 Dependence on other enabling machines and devices; W17.89XA Other fall from one level to another, initial encounter; Y93.89 Activity, other specified; Y92.59 Other trade areas as the place of occurrence of the external cause
CPT/HCPCS: 36415; 70450; 71046; 72125; 80053; 83735; 84484; 85025; 93005; 99284

== ENCOUNTER → 2020-04-01 | Outpatient (CLI) | payer MEDICARE ==
--- NOTE | 2020-04-02 08:47 | MM ---
Reason for exam: additional evaluation requested from prior study. Last mammogram was performed 9 years and 7 months ago. History: Patient is postmenopausal. Family history of breast cancer in maternal aunt at age 50, breast cancer in maternal aunt, and breast cancer in mother. Took hormonal contraceptives beginning at age 22. Physical Findings: Nurse did not find any significant physical abnormalities on exam. MG Diagnostic Mammo w CAD MAURICE Bilateral CC and MLO view(s) were taken. No prior studies available for comparison. The breast tissue is heterogeneously dense. This may lower the sensitivity of mammography. Right upper outer quadrant focal asymmetry, possible distortion on the MLO view. Punctate medial dermal calcifications on the left. These results were verbally communicated with the patient and result sheet given to the patient on 04/01/20. ASSESSMENT: Incomplete: need additional imaging evaluation, BI-RAD 0 RECOMMENDATION: Ultrasound of the right breast. upper outer quadrant
--- NOTE | 2020-04-02 08:48 | USB ---
Reason for exam: additional evaluation requested from abnormal screening. History: Patient is postmenopausal. Family history of breast cancer in maternal aunt at age 50, breast cancer in maternal aunt, and breast cancer in mother. Took hormonal contraceptives beginning at age 22. US Breast Limited RT Technologist: Lacey Shelley Right limited breast ultrasound including focal area of concern, retroareolar and axilla demonstrates no cystic or solid lesion seen. Scanned 9-12 o'clock. Dense island of tissue at 9 o'clock likely corresponds to the mammographic density. No abnormal mass is identified. 6 month follow up mammogram recommended. These results were verbally communicated with the patient and result sheet given to the patient on 04/01/20. ASSESSMENT: Probably benign, BI-RAD 3 RECOMMENDATION: Follow-up diagnostic mammogram of the right breast in 6 months.
== END | disposition home or self-care (01) ==
LOC: RADMAMWWP 14:58
PROVIDERS: ATTEND Family Medicine
DX: R92.8 Other abnormal and inconclusive findings on diagnostic imaging of breast (principal); N64.4 Mastodynia
CPT/HCPCS: 77066

== ENCOUNTER → 2020-06-17 | Day surgery (SDC) | payer MEDICARE ==
[2020-06-11 14:17] VITALS: BMI 30.2
[~2020-06-17] MED LIST: SODIUM CHLORIDE 0.9% 1,000 ML IV SCH
[2020-06-17 09:43] VITALS: BP 117/70; PULSE 79; RESP 16; TEMP 98.3
--- NOTE | 2020-06-17 14:02 | P.EPPROC ---
- EP Procedure Note Electrophysiology Procedure Note: Diagnosis Recurrent presyncope and collapse Twelve-lead EKG shows sinus rhythm normal MN incomplete right bundle branch block pattern normal ST segments normal QT interval Tilt table test per protocol Baseline blood pressure 133/68 mmHg, Baseline heart rate 70 beats a minute Patient was tilted upright at an angle of 70 per protocol was in immediate drop in blood pressure 94/58 mmHg and a heart rate remained unchanged 70 beats a minute Thereafter the blood pressure remained in the high 80s-mid 90s systolic. Heart rate remained in the 70s to 80s beats per minute. The patient did not have any presyncopal spells and did not have any symptoms. She was laid supine at the end of the procedure. At that time her blood pressure improved immediately 253/85 mmHg without any change in heart rate Impression Normal twelve-lead EKG Orthostatic hypotension syndrome but patient did not have any syncopal spells during this tilt table test
== END ==
LOC: CATHEP 08:55
PROVIDERS: ATTEND Internal Medicine Clinical Cardiac Electrophysiology
DX: I95.1 Orthostatic hypotension (principal); I45.19 Other right bundle-branch block; Z91.040 Latex allergy status
CPT/HCPCS: 93660

== ENCOUNTER → 2020-10-03 | Outpatient (CLI) | payer MEDICARE ==
--- NOTE | 2020-10-04 14:23 | MM ---
Reason for exam: follow-up at short interval from prior study. Last mammogram was performed 6 months ago. History: Patient is postmenopausal. Family history of breast cancer in maternal aunt at age 50, breast cancer in maternal aunt, and breast cancer in mother at age 79. Took hormonal contraceptives beginning at age 22. Physical Findings: Nurse did not find any significant physical abnormalities on exam. MG 3D Diag Mammo W/Cad RT CC and MLO view(s) were taken of the right breast. Prior study comparison: April 01, 2020, bilateral MG diagnostic mammo w CAD MAURICE. August 20, 2010, bilateral digital screening mammo w/CAD. The breast tissue is heterogeneously dense. This may lower the sensitivity of mammography. Upper outer quadrant global asymmetry is stable for 6 months. We note that prior ultrasound showed a dense island of tissue here. Continued follow up recommended. These results were verbally communicated with the patient and result sheet given to the patient on 10/03/20. ASSESSMENT: Probably benign, BI-RAD 3 RECOMMENDATION: Follow-up diagnostic mammogram of both breasts in 6 months.
== END | disposition home or self-care (01) ==
LOC: RADMAMWWP 10:25
PROVIDERS: ATTEND Family Medicine
DX: R92.8 Other abnormal and inconclusive findings on diagnostic imaging of breast (principal); Z78.0 Asymptomatic menopausal state; Z80.3 Family history of malignant neoplasm of breast; Z79.3 Long term (current) use of hormonal contraceptives
CPT/HCPCS: 77065; G0279; 77061

== ENCOUNTER 2020-10-05 17:06 | Emergency (ER) | payer MEDICARE ==
[2020-10-05 17:13] VITALS: TEMP 98
[2020-10-05 17:14] LABS: Glucose,Whole Blood 115 mg/dL (75-99)
--- NOTE | 2020-10-05 17:44 | ED ---
General Adult HPI - General Chief complaint: Altered Mental Status Stated complaint: Fall/ams/seizures Time Seen by Provider: 10/05/20 17:14 Source: family, RN notes reviewed, old records reviewed Mode of arrival: wheelchair Limitations: altered mental status - History of Present Illness Initial comments: 65-year-old female presenting with confusion, altered mental status, unsteady gait. Patient is accompanied by her son was able to give history. She's had multiple episodes similar to this approximately monthly. He states at least 20 similar episodes. She had recent hospitalization in [place] with similar presentation. He states she has been confused throughout the day today. There is a possibility that the patient had inadvertently taken her oral morphine twice. She is also on multiple additional sedating medications including lithi um, antidepressants, which stabilize her is. There was no reported head trauma, there was some minor falls. No reported fever or vomiting. - Related Data Home Medications Medication Instructions Recorded Confirmed Levothyroxine Sodium [Synthroid] 50 mcg PO DAILY 08/11/19 06/17/20 Morphine Sulfate Ir [MSIR] 30 mg PO QID 02/06/20 06/17/20 QUEtiapine FUMARATE [SEROquel] 800 mg PO HS 02/06/20 06/17/20 Ibuprofen [Motrin] 600 mg PO Q8HR PRN 05/17/20 06/11/20 traZODone HCL 150 mg PO HS 05/17/20 06/17/20 [place] Carbonate 300 mg PO BID 06/11/20 06/17/20 OXcarbazepine [Trileptal] 150 mg PO BID 06/11/20 06/17/20 Oxybutynin Chloride [Ditropan XL] 10 mg PO DAILY 06/11/20 06/17/20 Previous Rx's Medication Instructions Recorded Atorvastatin [Lipitor] 40 mg PO HS 30 Days #30 tab 02/09/20 Allergies Allergy/AdvReac Type Severity Reaction Status Date / Time latex Allergy Unknown Rash/Hives Verified 10/05/20 17:14 Review of Systems ROS Statement: Those systems with pertinent positive or pertinent negative responses have been documented in the HPI. ROS Other: All systems not noted in ROS Statement are negative. Past Medical History Past Medical History: COPD, CVA/TIA, Fibromyalgia, Hypertension, Seizure Disorder, Sleep Apnea/CPAP/BIPAP, Thyroid Disorder Additional Past Medical History / Comment(s): Chronic pain mostly in neck/low back, chronic aspirin user -was taking 4-8 tablets a day for about 40 years but had accidental aspirin overdose in August 2019-ended up going into kidney failure and having to have dialysis in ICU-[facility] and started having seizures and hypertensive emergency-sent to [facility] and diagnosed with PRES encephalopathy, pt states CVA 08/2019 with memory problems/word finding problems/slow speech and occasional slurred speech, eating disorder, iron anemia, bronchitis, sinus problems, IBS, UTI with sepsis, hypothyroid, migraines. History of Any Multi-Drug Resistant Organisms: MRSA Date of last positivie culture/infection: 2004 MDRO Source:: unknown Past Surgical History: Back Surgery, Tonsillectomy Additional Past Surgical History / Comment(s): Cervical and low back surgery Past Anesthesia/Blood Transfusion Reactions: No Reported Reaction Past Psychological History: Anxiety, Bipolar, Depression, PTSD Smoking Status: Former smoker Past Alcohol Use History: None Reported Past Drug Use History: None Reported - Past Family History Sister(s) Family Medical History: Cancer, Renal Disease Additional Family Medical History / Comment(s): breast cancer, kidney cancer Mother Family Medical History: Cancer, Hypertension Additional Family Medical History / Comment(s): breast Father Additional Family Medical History / Comment(s): Father of a cardiac arrest. General Exam Limitations: altered mental status General appearance: in no apparent distress, lethargic Head exam: Present: atraumatic, normocephalic Eye exam: Present: normal appearance, PERRL ENT exam: Present: mucous membranes dry Neck exam: Present: normal inspection. Absent: tenderness, meningismus Respiratory exam: Present: normal lung sounds bilaterally. Absent: respiratory distress, wheezes, rales Cardiovascular Exam: Present: regular rate, normal rhythm GI/Abdominal exam: Present: soft. Absent: distended, tenderness Extremities exam: Present: normal inspection, normal capillary refill Neurological exam: Absent: alert, motor sensory deficit Psychiatric exam: Present: flat affect Skin exam: Present: warm, dry, intact. Absent: cyanosis, diaphoretic Course Vital Signs 10/05/20 10/05/20 10/05/20 17:08 18:00 19:00 Temperature 98.0 F Pulse Rate 66 73 72 Respiratory 16 15 16 Rate Blood Pressure 97/57 107/66 94/61 O2 Sat by Pulse 95 95 Oximetry - Reevaluation(s) Reevaluation #1: 10/05/20 19:25 Patient reevaluated. She is alert and oriented 3. She has a steady gait and is able to relate to the bathroom. She is eager for discharge and is capable of making her own decisions. EKG Findings - EKG Comments: EKG Findings:: EKG: Normal sinus rhythm, incomplete right bundle-branch block, rate of 68, IA interval 158, QRS duration 98, QTC 476, no ST segment elevation. Medical Decision Making - Medical Decision Making 65-year-old female presented with confusion. She was somewhat lethargic upon initial evaluation with a nonfocal neurologic exam. I did initiate workup including head CT, chest x-ray, laboratory testing urinalysis. CT shows an old infarct with no acute findings. Chest x-ray showing a persistent atelectasis which is been present on previous imaging. She has a normal CBC, normal CMP. She is unable to give a urinalysis in the emergency department. I did plan to admit this patient for observation, neurology consultation. However on reevaluation she is alert and oriented and is eager for discharge. Her son is with her. She refuses to stay and wishes to be discharged. She is capable of making her own decisions. She has stable vitals and is ambulated with a normal gait. - Lab Data Result diagrams: 10/05/20 17:43 10/05/20 17:43 Lab Results 10/05/20 10/05/20 10/05/20 Range/Units 17:12 17:43 17:43 WBC 7.0 (3.8-10.6) k/uL RBC 3.80 (3.80-5.40) m/uL Hgb 11.2 L (11.4-16.0) gm/dL Hct 34.5 (34.0-46.0) % MCV 90.8 (80.0-100.0) fL MCH 29.5 (25.0-35.0) pg MCHC 32.5 (31.0-37.0) g/dL RDW 15.0 (11.5-15.5) % Plt Count 264 (150-450) k/uL MPV 8.3 Neutrophils % 66 % Lymphocytes % 24 % Monocytes % 4 % Eosinophils % 3 % Basophils % 0 % Neutrophils # 4.7 (1.3-7.7) k/uL Lymphocytes # 1.7 (1.0-4.8) k/uL Monocytes # 0.3 (0-1.0) k/uL Eosinophils # 0.2 (0-0.7) k/uL Basophils # 0.0 (0-0.2) k/uL Hypochromasia Slight PT 10.7 (9.0-12.0) sec INR 1.0 (<1.2) APTT 22.2 (22.0-30.0) sec VBG pH (7.31-7.41) VBG pCO2 (37-51) mmHg VBG HCO3 (24-28) mmol/L Sodium (137-145) mmol/L Potassium (3.5-5.1) mmol/L Chloride (98-107) mmol/L Carbon Dioxide (22-30) mmol/L Anion Gap mmol/L BUN (7-17) mg/dL Creatinine (0.52-1.04) mg/dL Est GFR (CKD-EPI)AfAm (>60 ml/min/1.73 sqM) Est GFR (CKD-EPI)NonAf (>60 ml/min/1.73 sqM) Glucose (74-99) mg/dL POC Glucose (mg/dL) 115 H (75-99) mg/dL POC Glu Admitting Office Escort ID Mulu, Mitzy Plasma Lactic Acid Slava (0.7-2.0) mmol/L Calcium (8.4-10.2) mg/dL Magnesium (1.6-2.3) mg/dL Total Bilirubin (0.2-1.3) mg/dL AST (14-36) U/L ALT (4-34) U/L Alkaline Phosphatase (38-126) U/L Creatine Kinase (30-135) U/L Troponin I (0.000-0.034) ng/mL Total Protein (6.3-8.2) g/dL Albumin (3.5-5.0) g/dL [place] mmol/L Serum Alcohol mg/dL 10/05/20 10/05/20 10/05/20 Range/Units 17:43 17:43 17:43 WBC (3.8-10.6) k/uL RBC (3.80-5.40) m/uL Hgb (11.4-16.0) gm/dL Hct (34.0-46.0) % MCV (80.0-100.0) fL MCH (25.0-35.0) pg MCHC (31.0-37.0) g/dL RDW (11.5-15.5) % Plt Count (150-450) k/uL MPV Neutrophils % % Lymphocytes % % Monocytes % % Eosinophils % % Basophils % % Neutrophils # (1.3-7.7) k/uL Lymphocytes # (1.0-4.8) k/uL Monocytes # (0-1.0) k/uL Eosinophils # (0-0.7) k/uL Basophils # (0-0.2) k/uL Hypochromasia PT (9.0-12.0) sec INR (<1.2) APTT (22.0-30.0) sec VBG pH (7.31-7.41) VBG pCO2 (37-51) mmHg VBG HCO3 (24-28) mmol/L Sodium 136 L (137-145) mmol/L Potassium 4.8 (3.5-5.1) mmol/L Chloride 105 (98-107) mmol/L Carbon Dioxide 25 (22-30) mmol/L Anion Gap 6 mmol/L BUN 9 (7-17) mg/dL Creatinine 0.71 (0.52-1.04) mg/dL Est GFR (CKD-EPI)AfAm >90 (>60 ml/min/1.73 sqM) Est GFR (CKD-EPI)NonAf >90 (>60 ml/min/1.73 sqM) Glucose 105 H (74-99) mg/dL POC Glucose (mg/dL) (75-99) mg/dL POC Glu Admitting Office Escort ID Plasma Lactic Acid Slava 1.1 (0.7-2.0) mmol/L Calcium 9.1 (8.4-10.2) mg/dL Magnesium 2.0 (1.6-2.3) mg/dL Total Bilirubin 0.3 (0.2-1.3) mg/dL AST 30 (14-36) U/L ALT 13 (4-34) U/L Alkaline Phosphatase 91 (38-126) U/L Creatine Kinase 148 H (30-135) U/L Troponin I <0.012 (0.000-0.034) ng/mL Total Protein 6.0 L (6.3-8.2) g/dL Albumin 3.6 (3.5-5.0) g/dL [place] 0.4 mmol/L Serum Alcohol <10 mg/dL 10/05/20 Range/Units 17:43 WBC (3.8-10.6) k/uL RBC (3.80-5.40) m/uL Hgb (11.4-16.0) gm/dL Hct (34.0-46.0) % MCV (80.0-100.0) fL MCH (25.0-35.0) pg MCHC (31.0-37.0) g/dL RDW (11.5-15.5) % Plt Count (150-450) k/uL MPV Neutrophils % % Lymphocytes % % Monocytes % % Eosinophils % % Basophils % % Neutrophils # (1.3-7.7) k/uL Lymphocytes # (1.0-4.8) k/uL Monocytes # (0-1.0) k/uL Eosinophils # (0-0.7) k/uL Basophils # (0-0.2) k/uL Hypochromasia PT (9.0-12.0) sec INR (<1.2) APTT (22.0-30.0) sec VBG pH 7.33 (7.31-7.41) VBG pCO2 49 (37-51) mmHg VBG HCO3 25 (24-28) mmol/L Sodium (137-145) mmol/L Potassium (3.5-5.1) mmol/L Chloride (98-107) mmol/L Carbon Dioxide (22-30) mmol/L Anion Gap mmol/L BUN (7-17) mg/dL Creatinine (0.52-1.04) mg/dL Est GFR (CKD-EPI)AfAm (>60 ml/min/1.73 sqM) Est GFR (CKD-EPI)NonAf (>60 ml/min/1.73 sqM) Glucose (74-99) mg/dL POC Glucose (mg/dL) (75-99) mg/dL POC Glu Admitting Office Escort ID Plasma Lactic Acid Slava (0.7-2.0) mmol/L Calcium (8.4-10.2) mg/dL Magnesium (1.6-2.3) mg/dL Total Bilirubin (0.2-1.3) mg/dL AST (14-36) U/L ALT (4-34) U/L Alkaline Phosphatase (38-126) U/L Creatine Kinase (30-135) U/L Troponin I (0.000-0.034) ng/mL Total Protein (6.3-8.2) g/dL Albumin (3.5-5.0) g/dL [place] mmol/L Serum Alcohol mg/dL Disposition Clinical Impression: Polypharmacy, Confusion Disposition: HOME SELF-CARE Condition: Fair Instructions (If sedation given, give patient instructions): Altered Mental Status (ED) Is patient prescribed a controlled substance at d/c from ED?: No Referrals: Azam Self DO [Primary Care Provider] - 1-2 days Time of Disposition: 19:27
[2020-10-05] MEDS: SODIUM CHLORIDE 0.9% 500 ML 500 ML IV ONE (17:56)
[2020-10-05 17:57] LABS: Basophils % (A) 0 %; Eosinophils # (A) 0.2 k/uL (0-0.7); Eosinophils % (A) 3 %; HCT 34.5 % (34.0-46.0); HGB 11.2 gm/dL (11.4-16.0); Hypochromasia Slight; Lymphocytes # (A) 1.7 k/uL (1.0-4.8); Lymphocytes % (A) 24 %; MCH 29.5 pg (25.0-35.0); MCHC 32.5 g/dL (31.0-37.0); MCV 90.8 fL (80.0-100.0); Mean Platelet Volume 8.3; Monocytes # (A) 0.3 k/uL (0-1.0); Monocytes % (A) 4 %; Neutrophils # (A) 4.7 k/uL (1.3-7.7); Neutrophils % (A) 66 %; Platelet Count 264 k/uL (150-450)
[2020-10-05 17:58] LABS: VBG PH 7.33 (7.31-7.41)
--- NOTE | 2020-10-05 18:01 | CT ---
EXAMINATION TYPE: CT brain wo con DATE OF EXAM: 10/05/2020 COMPARISON: 03/28/2020 HISTORY: ams CT DLP: 1099.4 mGycm Automated exposure control for dose reduction was used. There is mild cerebral atrophy. There is no mass effect nor midline shift. There is no sign of intrac ranial hemorrhage. There is wedge-shaped 3 x 2 cm area of hypodensity left occipital lobe. The calvar ium is intact. There is normal aeration of the mastoid sinuses. Skull base is intact. IMPRESSION: There is old left occipital lobe infarct. No change compared to old exam. No acute intracranial abnor mality.
--- NOTE | 2020-10-05 18:03 | XR ---
EXAMINATION TYPE: XR chest 2V DATE OF EXAM: 10/05/2020 COMPARISON: 03/28/2020 HISTORY: Altered mental status TECHNIQUE: 2 views FINDINGS: There is poor inspiration. There is some atelectasis and infiltrate at the left lung base. There is no definite heart failure. There is mild pulmonary congestion. No pleural effusion is seen. IMPRESSION: There is pulmonary vascular congestion that is increased compared to old exam. No pleural fluid seen to suggest heart failure. Acute heart failure not entirely excluded. There is increasing infiltrate and atelectasis left lower lobe compared to old exam.
[2020-10-05 18:09] LABS: ALT 13 U/L (4-34); AST 30 U/L (14-36); African American GFR (CKD) >90 (>60 ml/min/1.73 sqM); Albumin 3.6 g/dL (3.5-5.0); Alcohol <10 mg/dL; Alkaline Phosphatase 91 U/L (38-126); Anion Gap 6 mmol/L; Blood Urea Nitrogen 9 mg/dL (7-17); Calcium 9.1 mg/dL (8.4-10.2); Carbon Dioxide 25 mmol/L (22-30); Chloride 105 mmol/L (98-107); Creatine Kinase 148 U/L (30-135); Glucose 105 mg/dL (74-99); Lithium 0.4 mmol/L; Non-African American GFR(CKD) >90 (>60 ml/min/1.73 sqM); Sodium 136 mmol/L (137-145); Total Bilirubin 0.3 mg/dL (0.2-1.3)
[2020-10-05 18:22] LABS: Potassium 4.8 mmol/L (3.5-5.1)
[2020-10-05 18:52] LABS: Partial Thromboplastin Time 22.2 sec (22.0-30.0); Prothrombin Time 10.7 sec (9.0-12.0)
[2020-10-05 19:03] VITALS: RESP 16
[2020-10-05 19:45] VITALS: BP 106/60; PULSE 82
== END 2020-10-05 19:42 | disposition home or self-care (01) ==
LOC: EC 17:06
DX: R41.0 Disorientation, unspecified (principal); R26.81 Unsteadiness on feet; I11.0 Hypertensive heart disease with heart failure; I50.9 Heart failure, unspecified; J44.9 Chronic obstructive pulmonary disease, unspecified; E03.9 Hypothyroidism, unspecified; G40.909 Epilepsy, unspecified, not intractable, without status epilepticus; K58.9 Irritable bowel syndrome, unspecified; F31.9 Bipolar disorder, unspecified; F41.9 Anxiety disorder, unspecified; G47.30 Sleep apnea, unspecified; M79.7 Fibromyalgia; Z86.73 Personal history of transient ischemic attack (TIA), and cerebral infarction without residual deficits; Z87.440 Personal history of urinary (tract) infections; Z87.891 Personal history of nicotine dependence; Z79.1 Long term (current) use of non-steroidal anti-inflammatories (NSAID); Z79.82 Long term (current) use of aspirin; Z79.899 Other long term (current) drug therapy; Z91.040 Latex allergy status; Z99.2 Dependence on renal dialysis
CPT/HCPCS: 36415; 70450; 71046; 80053; 80178; 80320; 82550; 82803; 83605; 83735; 84484; 85025; 85610; 85730; 93005; 99285

== ENCOUNTER 2021-08-15 11:47 | Inpatient (IN) | payer MEDICARE ==
[2021-08-15] MEDS ORDERED: SODIUM CHLORIDE 0.9% 1,000 ML IV STA (12:35)
[2021-08-15] MEDS ORDERED: MORPHINE SULFATE 4 MG/ML SYRINGE IV STA (12:35)
[2021-08-15] MEDS ORDERED: ONDANSETRON 4 MG/2 ML VIAL IVP STA (12:35)
[2021-08-15 12:49] LABS: Glucose,Whole Blood 104 mg/dL (75-99)
--- NOTE | 2021-08-15 13:08 | ED ---
General Adult HPI - General Chief complaint: Weakness Stated complaint: falls Time Seen by Provider: 08/15/21 12:25 Source: patient, EMS, RN notes reviewed, old records reviewed Mode of arrival: EMS - History of Present Illness Initial comments: Patient is a 66-year-old female with past medical history remarkable for COPD, fibromyalgia, seizure disorder on Depakote, hypertension presents emergency Department complaining of nonspecific abdominal pain, nausea and vomiting, as w ell as generalized weakness. Patient states she is also felt weak and has "fallen to the floor" multiple times over the last few days. Discussed the falls as lowering herself to the floor. Denies any injuries. Denies loss of consciousness. Does not believe it was a seizure. Denies biting her tongue. Denies any loss of stool or urine. Denies any fevers, chills, cough. Denies any chest pain or shortness of breath. Denies any known sick contacts. Denies diarrhea. Denies any abdominal surgeries. Denies any urinary complaints. Patient presents in a cervical collar, however denies any back pain at this time. Presents for further evaluation at this time. sHe is having a difficult time holding down food. - Related Data Home Medications Medication Instructions Recorded Confirmed Levothyroxine Sodium [Synthroid] 50 mcg PO DAILY 08/11/19 08/15/21 Morphine Sulfate Ir [MSIR] 30 mg PO QID PRN 02/06/20 08/15/21 QUEtiapine FUMARATE [SEROquel] 800 mg PO HS 02/06/20 08/15/21 Oxybutynin Chloride [Ditropan XL] 10 mg PO DAILY 06/11/20 08/15/21 Ascorbic Acid [Vitamin C] 500 mg PO DAILY 08/15/21 08/15/21 Aspirin EC [Ecotrin Low Dose] 81 mg PO DAILY 08/15/21 08/15/21 Cholecalciferol [Vitamin D3 (125 125 mcg PO DAILY 08/15/21 08/15/21 Mcg = 5000 Iu)] Cyanocobalamin [Vitamin B-12] 500 mcg PO DAILY 08/15/21 08/15/21 Divalproex [Depakote] 250 mg PO BID 08/15/21 08/15/21 Docusate [Colace] 300 mg PO DAILY 08/15/21 08/15/21 FLUoxetine HCL 40 mg PO DAILY 08/15/21 08/15/21 LORazepam [Ativan] 2 mg PO BID PRN 08/15/21 08/15/21 [place] Carbonate [[place] 300 mg PO BID 08/15/21 08/15/21 Carbonate ER] traZODone HCL 300 mg PO HS 08/15/21 08/15/21 Allergies Allergy/AdvReac Type Severity Reaction Status Date / Time latex Allergy Unknown Rash/Hives Verified 08/15/21 14:28 Review of Systems ROS Statement: Those systems with pertinent positive or pertinent negative responses have been documented in the HPI. Review of Systems: CONST: Denies fever EYES: Denies blurry vision ENT: Denies nasal congestion C/V: Denies Chest pain RESP: Denies shortness of breath GI: Endorses abdominal pain : Denies dysuria SKIN: Denies rash. MSK: Denies joint pain. NEURO: Denies headache ROS Other: All systems not noted in ROS Statement are negative. Past Medical History Past Medical History: COPD, CVA/TIA, Fibromyalgia, Hypertension, Seizure Disorder, Sleep Apnea/CPAP/BIPAP, Thyroid Disorder Additional Past Medical History / Comment(s): Chronic pain mostly in neck/low back, chronic aspirin user -was taking 4-8 tablets a day for about 40 years but had accidental aspirin overdose in August 2019-ended up going into kidney failure and having to have dialysis in ICU-went [facility] and started having seizures and hypertensive emergency-sent to [facility] and diagnosed with PRES encephalopathy, pt states CVA 08/2019 with memory problems/word finding problems/slow speech and occasional slurred speech, eating disorder, iron anemia , bronchitis, sinus problems, IBS, UTI with sepsis, hypothyroid, migraines. History of Any Multi-Drug Resistant Organisms: MRSA Date of last positivie culture/infection: 2004 MDRO Source:: unknown Past Surgical History: Back Surgery, Tonsillectomy Additional Past Surgical History / Comment(s): Cervical and low back surgery Past Anesthesia/Blood Transfusion Reactions: No Reported Reaction Past Psychological History: Anxiety, Bipolar, Depression, PTSD Smoking Status: Former smoker Past Alcohol Use History: None Reported Past Drug Use History: None Reported - Past Family History Sister(s) Family Medical History: Cancer, Renal Disease Additional Family Medical History / Comment(s): breast cancer, kidney cancer Mother Family Medical History: Cancer, Hypertension Additional Family Medical History / Comment(s): breast Father Additional Family Medical History / Comment(s): Father of a cardiac arrest. General Exam - General Exam Comments Initial Comments: General: Appears in no acute distress. HEAD: Normal with no signs of head trauma. EYES: PERRLA, EOMI, conjunctiva normal, no discharge. Pupils are 3 mm and equal bilaterally. ENT: Hearing grossly intact, normal oropharynx. Mildly dry mucous membranes. RESPIRATORY: Clear breath sounds bilaterally. No wheezes, rales, or rhonchi. C/V: Regular rate and rhythm. S1 and S2 auscultated, no edema, peripheral pulses 2+ and intact throughout ABD: Abdomen soft, nondistended. Tender to palpation in the epigastric region and periumbilically. No guarding. No rebound tenderness. No peritoneal signs. No CVA tenderness to percussion. EXT: Normal range of motion, no obvious deformity. Nonspecific pelvis tenderness on palpation and movement. No midline cervical, thoracic, lumbar spine tenderness to palpation. Pelvis is stable. SKIN: No rashes or lesions observed on exposed skin. NEURO: Alert and oriented 4. No focal sensory or strength deficits. GCS of 15. Course Vital Signs 08/15/21 08/15/21 11:55 13:10 Temperature 98.2 F Pulse Rate 89 71 Respiratory 18 18 Rate Blood Pressure 132/72 115/68 O2 Sat by Pulse 95 95 Oximetry Medical Decision Making - Medical Decision Making Abdomen the patient's presentation and physical exam, she is experiencing generalized weakness with last few days. A symptoms are nonspecific abdominal pain, nausea, vomiting. Suspect an infectious etiology but Intra-Abdominal Etiology at This Time. Patient Has Been Feeling More Tired Lately As Well with Multiple Falls but They Seem to Be Very Mild. We Will Obtain Plain Films of the Pelvis and Chest in Addition to CT Brain Just to Rule Out Any Intracranial Process at This Time. We Will Also Obtain a Depakote Level. Patient Was in Agreement This Plan. She'll Be Symptomatically Treated with IV Analgesia, Antiemetics, and Fluids. Does Not Appear That the Patient Had a Seizure at This Time. EKG Showed No Signs of Acute Ischemia.There was a delay in obtaining blood work and imaging. Labs did reveal a mild leukocytosis of 11.1. Patient is a mild normocytic anemia with a hemoglobin of 9.4. In the past, anemias ranged anywhere from typically 10-12. Patient has mild thrombocytopenia with platelets of 144 as well. Patient is mildly dehydrated with a mild hyponatremia of 135. The patient is a mild hypokalemia at 3.2 which was replenished. Patient is mildly elevated LFTs, including AST, ALT, alk phos. Urinalysis is remarkable for large amount of leukocyte esterase as well as 37 WBCs. Depakote therapeutic level is undetectable. Covid and flu are negative. Chest x-ray revealed mild possible infiltrates, but she has no speech or symptoms. Pelvic x-ray showed no acute injury. Brain CT showed no acute intracranial process. There are old remote findings of ischemia. Abdomen pelvis CT revealed left-sided pyelonephritis is possible peristalsis and thickening of the colon at the hepatic flexure. They recommended imaging via direct visualization to rule out neoplasm. Lung scarring is seen as well. No URI symptoms to suggest infectious process. Gallbladder ultrasound was also obtained which showed no gallstones, or bile duct dilation. On reevaluation, patient still complaining of abdominal pain and some nausea. She'll be given more pain medications as well as continue on maintenance fluids. Due to her age and findings on exam, I do want to admit for IV antibiotics for pyelonephritis. She was in agreement this plan. We discussed the rest of her findings and imaging as well. She was started on Rocephin for her pyelonephritis. Blood cultures were ordered. I spoke with the admitting team, Dr. Fields who accepted the patient. Patient was admitted in stable condition. Vital signs remained within normal limits throughout her stay. Patient was loaded with 1 g of depakote, as she is on it for seizures and has undetectable levels. - Lab Data Result diagrams: 08/15/21 12:50 08/15/21 12:50 Lab Results 08/15/21 08/15/21 08/15/21 Range/Units 12:47 12:50 12:50 WBC 11.1 H (3.8-10.6) k/uL RBC 3.36 L (3.80-5.40) m/uL Hgb 9.4 L (11.4-16.0) gm/dL Hct 29.5 L (34.0-46.0) % MCV 87.8 (80.0-100.0) fL MCH 27.9 (25.0-35.0) pg MCHC 31.8 (31.0-37.0) g/dL RDW 15.6 H (11.5-15.5) % Plt Count 144 L (150-450) k/uL MPV 9.3 Neutrophils % (Manual) 68 % Lymphocytes % (Manual) 24 % Monocytes % (Manual) 8 % Neutrophils # (Manual) 7.55 (1.3-7.7) k/uL Lymphocytes # (Manual) 2.66 (1.0-4.8) k/uL Monocytes # (Manual) 0.89 (0-1.0) k/uL Nucleated RBCs 0 (0-0) /100 WBC Manual Slide Review Performed PT 10.7 (9.0-12.0) sec INR 1.0 (<1.2) APTT 25.2 (22.0-30.0) sec Sodium (137-145) mmol/L Potassium (3.5-5.1) mmol/L Chloride (98-107) mmol/L Carbon Dioxide (22-30) mmol/L Anion Gap mmol/L BUN (7-17) mg/dL Creatinine (0.52-1.04) mg/dL Est GFR (CKD-EPI)AfAm (>60 ml/min/1.73 sqM) Est GFR (CKD-EPI)NonAf (>60 ml/min/1.73 sqM) Glucose (74-99) mg/dL POC Glucose (mg/dL) 104 H (75-99) mg/dL POC Glu Turf Grower ID [facility] Plasma Lactic Acid Slava (0.7-2.0) mmol/L Calcium (8.4-10.2) mg/dL Magnesium (1.6-2.3) mg/dL Total Bilirubin (0.2-1.3) mg/dL AST (14-36) U/L ALT (4-34) U/L Alkaline Phosphatase (38-126) U/L Total Protein (6.3-8.2) g/dL Albumin (3.5-5.0) g/dL Amylase (30-110) U/L Lipase (23-300) U/L Urine Color Urine Appearance (Clear) Urine pH (5.0-8.0) Ur Specific [place] (1.001-1.035) Urine Protein (Negative) Urine Glucose (UA) (Negative) Urine Ketones (Negative) Urine Blood (Negative) Urine Nitrite (Negative) Urine Bilirubin (Negative) Urine Urobilinogen (<2.0) mg/dL Ur Leukocyte Esterase (Negative) Urine RBC (0-5) /hpf Urine WBC (0-5) /hpf Ur Squamous Epith Cells (0-4) /hpf Urine Bacteria (None) /hpf Urine Mucus (None) /hpf Valproic Acid ug/mL Coronavirus (PCR) (Not Detectd) Influenza Type A RNA (Not Detectd) Influenza Type B (PCR) (Not Detectd) 08/15/21 08/15/21 08/15/21 Range/Units 12:50 12:50 13:06 WBC (3.8-10.6) k/uL RBC (3.80-5.40) m/uL Hgb (11.4-16.0) gm/dL Hct (34.0-46.0) % MCV (80.0-100.0) fL MCH (25.0-35.0) pg MCHC (31.0-37.0) g/dL RDW (11.5-15.5) % Plt Count (150-450) k/uL MPV Neutrophils % (Manual) % Lymphocytes % (Manual) % Monocytes % (Manual) % Neutrophils # (Manual) (1.3-7.7) k/uL Lymphocytes # (Manual) (1.0-4.8) k/uL Monocytes # (Manual) (0-1.0) k/uL Nucleated RBCs (0-0) /100 WBC Manual Slide Review PT (9.0-12.0) sec INR (<1.2) APTT (22.0-30.0) sec Sodium 135 L (137-145) mmol/L Potassium 3.2 L (3.5-5.1) mmol/L Chloride 106 (98-107) mmol/L Carbon Dioxide 21 L (22-30) mmol/L Anion Gap 8 mmol/L BUN 20 H (7-17) mg/dL Creatinine 0.89 (0.52-1.04) mg/dL Est GFR (CKD-EPI)AfAm 79 (>60 ml/min/1.73 sqM) Est GFR (CKD-EPI)NonAf 69 (>60 ml/min/1.73 sqM) Glucose 101 H (74-99) mg/dL POC Glucose (mg/dL) (75-99) mg/dL POC Glu Turf Grower ID Plasma Lactic Acid Slava 0.7 (0.7-2.0) mmol/L Calcium 8.6 (8.4-10.2) mg/dL Magnesium 2.2 (1.6-2.3) mg/dL Total Bilirubin 0.6 (0.2-1.3) mg/dL AST 186 H (14-36) U/L ALT 113 H (4-34) U/L Alkaline Phosphatase 197 H (38-126) U/L Total Protein 5.9 L (6.3-8.2) g/dL Albumin 3.0 L (3.5-5.0) g/dL Amylase 38 (30-110) U/L Lipase 39 (23-300) U/L Urine Color Light Yellow Urine Appearance Clear (Clear) Urine pH 6.5 (5.0-8.0) Ur Specific [place] 1.012 (1.001-1.035) Urine Protein Trace H (Negative) Urine Glucose (UA) Negative (Negative) Urine Ketones Negative (Negative) Urine Blood Trace H (Negative) Urine Nitrite Negative (Negative) Urine Bilirubin Negative (Negative) Urine Urobilinogen <2.0 (<2.0) mg/dL Ur Leukocyte Esterase Large H (Negative) Urine RBC <1 (0-5) /hpf Urine WBC 37 H (0-5) /hpf Ur Squamous Epith Cells 1 (0-4) /hpf Urine Bacteria Rare H (None) /hpf Urine Mucus Rare H (None) /hpf Valproic Acid <10.0 ug/mL Coronavirus (PCR) (Not Detectd) Influenza Type A RNA (Not Detectd) Influenza Type B (PCR) (Not Detectd) 08/15/21 08/15/21 08/15/21 Range/Units 13:06 13:06 13:11 WBC (3.8-10.6) k/uL RBC (3.80-5.40) m/uL Hgb (11.4-16.0) gm/dL Hct (34.0-46.0) % MCV (80.0-100.0) fL MCH (25.0-35.0) pg MCHC (31.0-37.0) g/dL RDW (11.5-15.5) % Plt Count (150-450) k/uL MPV Neutrophils % (Manual) % Lymphocytes % (Manual) % Monocytes % (Manual) % Neutrophils # (Manual) (1.3-7.7) k/uL Lymphocytes # (Manual) (1.0-4.8) k/uL Monocytes # (Manual) (0-1.0) k/uL Nucleated RBCs (0-0) /100 WBC Manual Slide Review PT (9.0-12.0) sec INR (<1.2) APTT (22.0-30.0) sec Sodium (137-145) mmol/L Potassium (3.5-5.1) mmol/L Chloride (98-107) mmol/L Carbon Dioxide (22-30) mmol/L Anion Gap mmol/L BUN (7-17) mg/dL Creatinine (0.52-1.04) mg/dL Est GFR (CKD-EPI)AfAm (>60 ml/min/1.73 sqM) Est GFR (CKD-EPI)NonAf (>60 ml/min/1.73 sqM) Glucose (74-99) mg/dL POC Glucose (mg/dL) 98 (75-99) mg/dL POC Glu Turf Grower ID [facility] Plasma Lactic Acid Slava (0.7-2.0) mmol/L Calcium (8.4-10.2) mg/dL Magnesium (1.6-2.3) mg/dL Total Bilirubin (0.2-1.3) mg/dL AST (14-36) U/L ALT (4-34) U/L Alkaline Phosphatase (38-126) U/L Total Protein (6.3-8.2) g/dL Albumin (3.5-5.0) g/dL Amylase (30-110) U/L Lipase (23-300) U/L Urine Color Urine Appearance (Clear) Urine pH (5.0-8.0) Ur Specific [place] (1.001-1.035) Urine Protein (Negative) Urine Glucose (UA) (Negative) Urine Ketones (Negative) Urine Blood (Negative) Urine Nitrite (Negative) Urine Bilirubin (Negative) Urine Urobilinogen (<2.0) mg/dL Ur Leukocyte Esterase (Negative) Urine RBC (0-5) /hpf Urine WBC (0-5) /hpf Ur Squamous Epith Cells (0-4) /hpf Urine Bacteria (None) /hpf Urine Mucus (None) /hpf Valproic Acid ug/mL Coronavirus (PCR) Not Detected (Not Detectd) Influenza Type A RNA Not Detected (Not Detectd) Influenza Type B (PCR) Not Detected (Not Detectd) - EKG Data -: EKG Interpreted by Me EKG Comments: 12-lead Electrocardiogram Interpretation Note EKG was reviewed and interpreted by myself. 12-lead ECG performed at 1239 is interpreted by me as revealing normal sinus rhythm at a rate of 83 beats per minute. [place] is normal. [place] interval is 146 seconds, QRS duration is 117 ms, QTc is 469 ms.. There were no ST or T wave abnormalities to suggest myocardial ischemia or injury. R wave progression across the precordium was satisfactory. By my interpretation this EKG is non-diagnostic for acute ischemia. It does show a incomplete right bundle branch block, which is chronic. Disposition Clinical Impression: Pyelonephritis, Nausea and vomiting Disposition: ADMITTED IP TO THIS HOSP Condition: Stable Referrals: Azam Self DO [Primary Care Provider] - 1-2 days Time of Disposition: 16:15
[2021-08-15 13:13] LABS: Glucose,Whole Blood 98 mg/dL (75-99)
[2021-08-15 13:14] LABS: ALT 113 U/L (4-34); AST 186 U/L (14-36); African American GFR (CKD) 79 (>60 ml/min/1.73 sqM); Alkaline Phosphatase 197 U/L (38-126); Amylase 38 U/L (30-110); Anion Gap 8 mmol/L; Blood Urea Nitrogen 20 mg/dL (7-17); Calcium 8.6 mg/dL (8.4-10.2); Carbon Dioxide 21 mmol/L (22-30); Chloride 106 mmol/L (98-107); Glucose 101 mg/dL (74-99); Lipase 39 U/L (23-300); Magnesium 2.2 mg/dL (1.6-2.3); Non-African American GFR(CKD) 69 (>60 ml/min/1.73 sqM); Potassium 3.2 mmol/L (3.5-5.1); Sodium 135 mmol/L (137-145); Total Bilirubin 0.6 mg/dL (0.2-1.3); Total Protein 5.9 g/dL (6.3-8.2)
[2021-08-15 13:15] LABS: Partial Thromboplastin Time 25.2 sec (22.0-30.0); Prothrombin Time 10.7 sec (9.0-12.0)
[2021-08-15 13:19] LABS: Valproic Acid (Depakene) <10.0 ug/mL
[2021-08-15 13:37] LABS: HCT 29.5 % (34.0-46.0); HGB 9.4 gm/dL (11.4-16.0); MCH 27.9 pg (25.0-35.0); MCHC 31.8 g/dL (31.0-37.0); MCV 87.8 fL (80.0-100.0); Mean Platelet Volume 9.3; Platelet Count 144 k/uL (150-450); RBC 3.36 m/uL (3.80-5.40); RDW 15.6 % (11.5-15.5); WBC 11.1 k/uL (3.8-10.6)
[2021-08-15 14:08] LABS: Lymphocytes # (M) 2.66 k/uL (1.0-4.8); Monocytes # (M) 0.89 k/uL (0-1.0); Neutrophils # (M) 7.55 k/uL (1.3-7.7); Neutrophils % (M) 68 %; Nucleated Red Blood Cells 0 /100 WBC (0-0); Total Cells Counted 100
--- NOTE | 2021-08-15 14:10 | XR ---
EXAMINATION TYPE: XR chest 2V DATE OF EXAM: 08/15/2021 COMPARISON: 10/05/2020 TECHNIQUE: PA and lateral views submitted. HISTORY: Pain FINDINGS: Heart is enlarged there is a diffuse interstitial pattern with left lower lobe infiltrate. Segmental changes right lung base. Arthropathy of the shoulders. Postsurgical change overlying the cervical spi ne. IMPRESSION: 1. Correlate for interstitial pneumonitis or pneumonia versus venous congestion.
--- NOTE | 2021-08-15 14:11 | XR ---
EXAMINATION TYPE: XR pelvis AP view DATE OF EXAM: 08/15/2021 COMPARISON: NONE HISTORY: Pain FINDINGS: Postsurgical changes lower lumbar spine. SI joints symmetric. Calcification in the pelvis likely vasc ular. Hypertrophic changes of the acetabulum. Mild diffuse osteopenia. No definite acute fracture. IMPRESSION: 1. No definite acute fracture.
--- NOTE | 2021-08-15 15:23 | CT ---
EXAMINATION TYPE: CT abdomen pelvis w con DATE OF EXAM: 08/15/2021 COMPARISON: 11/04/2011 HISTORY: 66-year-old female Abdominal pain TECHNIQUE: Contiguous axial scanning of the abdomen and pelvis following administration of 100 ml Iso jessica 300 IV contrast. Delayed images through the kidneys and coronal/sagittal reconstructions perform ed. CT DLP: 1205.8 mGycm Automated exposure control for dose reduction was used. FINDINGS: The heart is borderline enlarged with small anterior basilar pericardial fluid. Large bandlike focal opacities visualized at the left lung base. Patchy additional changes at the rig ht base. Further clinical correlation with patient's symptoms exclude pneumonitis. Nonspecific 4 mm m edial right middle lobe pulmonary nodule. No pleural effusion. Tiny hiatal hernia. Couple subcentimeter hypodensities inferior right liver lobe, likely small cysts. Bile duct mildly dilated 8.5 mm, unchanged. The gallbladder is full likely due to fasting state. No s urrounding inflammation. Portal venous system is patent. Adrenal glands, spleen, and pancreas within normal limits. Scattered subcentimeter hypodensities in both renal cortices, too small fractured CT characterization , suggesting cyst. No excretion of contrast on the delayed kidney images. Findings suggest acute kidney injury. In addit ion, there is prominent patchy hypoenhancement throughout the left renal parenchyma as well as mild u rothelial thickening and enhancement of the left renal collecting system. Asymmetric mild perinephric edema on the left. No dilated small bowel, free fluid, or free air. No mesenteric or retroperitoneal lymphadenopathy. Short segment mild circumferential wall thickening at the hepatic flexure of the colon, axial image 3 4 persists on the delayed kidney images. This may represent focal peristalsis. Direct visualization w hen patient able to exclude neoplasm. Mild to moderate stool burden. Lower descending and proximal sigmoid colon diverticulosis. Redundant sigmoid colon. Prominent urinary bladder distention. Uterus anteverted. Both ovaries are visualized. Scan did not in clude the entire inferior aspect of the pelvis. Bones: Mild degenerative change of both hips. Post surgical change interbody lumbar fusion L3-S1 leve ls with anterior fusion hardware and posterior fusion hardware at L5-S1. Corresponding laminectomies and lateral osseous fusion changes. Straightening of the normal spinal curvature. IMPRESSION: 1. CT FINDINGS COMPATIBLE WITH LEFT-SIDED PYELONEPHRITIS. ALSO, UROTHELIAL ENHANCEMENT OF THE LEFT RE NAL COLLECTING SYSTEM COMPATIBLE WITH CONCURRENT PYELITIS. 2. NO EXCRETION OF CONTRAST FROM EITHER KIDNEY ON DELAYED KIDNEY IMAGES. CORRELATE WITH THE BUN/CREAT ININE TO EXCLUDE ACUTE KIDNEY INJURY. 3. SHORT SEGMENT CIRCUMFERENTIAL WALL THICKENING AT THE HEPATIC FLEXURE OF THE COLON. THIS PERSISTS O N THE DELAYED SCAN. FOCAL PERISTALSIS IS POSSIBLE. WHEN PATIENT ABLE, RECOMMEND DIRECT VISUALIZATION TO EXCLUDE THE LESS LIKELY POSSIBILITY OF NEOPLASM. 4. FOCAL BIBASILAR OPACITIES, LEFT GREATER THAN RIGHT. THESE COULD REPRESENT AREAS OF SCARRING. CORRE LATE TO EXCLUDE ANY INFECTIOUS RESPIRATORY SIGNS/SYMPTOMS. THREE-MONTH FOLLOW-UP CT CAN REASSESS THES E FINDINGS AND ALSO THE 4 MM RIGHT BASILAR PULMONARY NODULE.
--- NOTE | 2021-08-15 15:23 | CT ---
EXAMINATION TYPE: CT brain wo con DATE OF EXAM: 08/15/2021 COMPARISON: 10/05/2020 HISTORY: Weakness CT DLP: 1188.4 mGycm Automated exposure control for dose reduction was used. FINDINGS: Orbits are symmetric. Changes of chronic sinusitis noted. Mild degenerative change with hyperostosis of the skull. There is a soft tissue hematoma or scalp hem atoma adjacent to left parieto-occipital junction. Low attenuation in the white matter is nonspecific but most typical remote white matter ischemia. Area of low attenuation in the left occipital lobe suggests remote ischemia and stable smaller area o f remote ischemia involving the posterior right occipital lobe. Hyperostosis of the calvarium. Tiny p unctate calcification right basal ganglia. IMPRESSION: 1. Degenerative and nonspecific white matter change suggestive of remote ischemia. 2. Remote bilateral occipital infarct.
[2021-08-15] MEDS ORDERED: MORPHINE SULFATE 4 MG/ML SYRINGE IVP STA (15:46)
--- NOTE | 2021-08-15 16:14 | US ---
EXAMINATION TYPE: US gallbladder DATE OF EXAM: 08/15/2021 COMPARISON: CT same day CLINICAL HISTORY: 66-year-old female RUQ pain. TECHNIQUE: Multiple sonographic images of the right upper quadrant are obtained. FINDINGS: EXAM MEASUREMENTS: Liver Length: 14.5 cm Gallbladder Wall: .3 cm CBD: .4 cm Right Kidney: 11.3 x 5.6 x 4.4 cm Pancreas: Suboptimal visualization of the pancreatic tail due to shadowing from bowel gas. Liver: Overall homogeneous appearance. No focal lesion. Gallbladder: Upper limits of normal in distention. No abnormal wall thickening, surrounding fluid, o r shadowing calculi. Evidence for sonographic Cintron's sign: No CBD: wnl Right Kidney: No hydronephrosis or masses seen IMPRESSION: No gallstones or biliary ductal dilatation. No hydronephrosis on the right.
[2021-08-15 16:18] LABS: Appearance,Urine Clear (Clear); Bacteria,Urine Rare /hpf; Bilirubin,Urine Negative (Negative); Blood,Urine Trace (Negative); Color,Urine Light Yellow; Glucose,Urine (UA) Negative (Negative); Ketones,Urine Negative (Negative); Leukocyte Esterase,Urine Large (Negative); Mucus,Urine Rare /hpf; Nitrite,Urine Negative (Negative); PH, Urine 6.5 (5.0-8.0); Protein,Urine Trace (Negative); RBC,Urine <1 /hpf (0-5); Specific Gravity,Urine 1.012 (1.001-1.035); Squamous Epithelial Cell,Urine 1 /hpf (0-4); Urobilinogen,Urine <2.0 mg/dL (<2.0); WBC,Urine 37 /hpf (0-5)
[2021-08-15] MEDS ORDERED: DIVALPROEX 500 MG TABLET.DR PO STA (16:33)
[2021-08-15] MEDS ORDERED: NALOXONE 0.4 MG/ML 1 ML VIAL IV PRN (16:33)
[2021-08-15] MEDS ORDERED: POTASSIUM CHLORIDE ER 20 MEQ TAB.ER PO STA (16:59)
[2021-08-15] MEDS ORDERED: VANCOMYCIN IV PER PHARMACY 1 EACH MISC MISCELLANE PRN (17:18)
[2021-08-15] MEDS ORDERED: LORazepam 1 MG TAB PO PRN (17:27)
[2021-08-15] MEDS ORDERED: VANCOMYCIN 1,250 MG in SODIUM CHLORIDE 0.9% 250 ML IVPB ONE (17:30)
--- NOTE | 2021-08-15 18:08 | P.HPIM ---
History of Present Illness H&P Date: 08/15/21 Chief Complaint: Generalized weakness, multiple falls 66-year-old woman with medical history of mood disorder, insomnia, hypothyroidism, seizure disorder, COPD, hypertension, bipolar disorder, borderline personality, PTSD, fibromyalgia, PATRICIO presented for evaluation of multiple falls. Patient is a very poor historian, appears to be shaking vigorously on evaluation, does not participate well in interview. Per my understanding, patient has been having multiple falls recently, and is also complaining of pain in the back, worse in the left flank. She denies fevers, but reports chills. She reports nausea, but denies vomiting. She denies chest pain, palpitations, cough, dyspnea. She denies abdominal pain, constipation, diarrhea, dyschezia. She reports dysuria, nocturia. She denies focal numbness/weakness of extremities. She does report generalized weakness of all of her upper and lower extremities. In the emergency room, patient is afebrile, 130/97, heart rate is 133, 94% on 2 L nasal cannula. CBC is remarkable for leukocytosis, hemoglobin 9.4, platelets of 144; baseline hemoglobin is 11, baseline platelets are 250. Chemistry show hypernatremia to 135, hypokalemia to 3.2, carbon dioxide of 21, BUN is 20, creatinine is normal at 0.9. LFTs are remarkable for elevated AST/ALT of 186- 113, elevated alkaline phosphatase of 197, total protein of 5.9, albumin of 3.0. Amylase/lipase are low. UA significant for trace protein, trace blood, large leukocyte esterase, 37 white blood cells, rare bacteria. Valproic acid level is less than 10. Covid was negative. Influenza A/B are negative. Chest x-ray shows an enlarged heart with a diffuse interstitial pattern with a left lower lobe infiltrate consistent with interstitial pneumonitis versus pulmonary venous congestion. Pelvis x-ray is negative for acute fracture. CT of the abdomen/pelvis significant for left-sided pyelonephritis, left-sided pyelitis, circumferential wall thickening at the hepatic flexure of the colon possibly related to neoplasm, focal bibasilar opacities left greater than right, 4 mm right basilar pulmonary nodule. Brain CT shows degenerative and nonspecific white matter changes suggestive of remote ischemia, as well as a remote bilateral septal infarct. Gallbladder ultrasound was negative for gallstones or biliary ductal dilation, no hydronephrosis on the right side. All Systems reviewed and pertinent positives and negatives noted in HPI, all other symptoms are negative Gen: in no apparent distress, resting comfortably in bed Eyes: PERRL, no scleral injection or icterus HENT: normocephalic, atraumatic, good hearing acuity, moist mucous membranes Neck: no tracheal deviation, full range of motion Resp: good air exchange, breathing comfortably with no accessory muscle use, no tactile fremitus CVS: good distal perfusion x 4, no pitting edema GI: soft, NTTP, ND, no hepatosplenomegaly : no suprapubic tenderness, no CVAT, nichols catheter not present MSK: no clubbing, no cyanosis, no noted contractures of extremities Skin: no noted rashes, petechiae; temperature of skin is appropriate Neuro: moving all extremities without signs of weakness, CN II-XII intact Psych: cooperative, euthymic mood, insight and judgment intact Labs and imaging reviewed as above Assessment/plan: Sepsis secondary to left-sided pyelonephritis Multiple falls -Admit inpatient, telemetry -Follow blood culture, urine culture -Vancomycin, ceftriaxone -Pain control -Tylenol when necessary for pain or fever -Nausea control -PT/OT Volume overload Elevated LFTs -BNP pending -Echo pending -Hold off on IV fluids or diuretics at this time -Daily labs Seizure disorder -Patient's valproic acid level is less than 10 -Resume valproic acid -Discontinue [place] Bipolar disorder Borderline personality disorder PTSD Fibromyalgia Objective sleep apnea Hypertension COPD without exacerbation Hypothyroidism Insomnia -Home medications reviewed and reconciled Patient is full code DVT prophylaxis with heparin 3 times a day Past Medical History Past Medical History: COPD, CVA/TIA, Fibromyalgia, Hypertension, Seizure Disorder, Sleep Apnea/CPAP/BIPAP, Thyroid Disorder Additional Past Medical History / Comment(s): Chronic pain mostly in neck/low back, chronic aspirin user -was taking 4-8 tablets a day for about 40 years but had accidental aspirin overdose in August 2019-ended up going into kidney failure and having to have dialysis in ICU-went [facility] and started having seizures and hypertensive emergency-sent to [facility] and diagnosed with PRES encephalopathy, pt states CVA 08/2019 with memory problems/word finding problems/slow speech and occasional slurred speech, eating disorder, iron anemia, bronchitis, sinus problems, IBS, UTI with sepsis, hypothyroid, migr aines. History of Any Multi-Drug Resistant Organisms: MRSA Date of last positivie culture/infection: 2004 MDRO Source:: unknown Past Surgical History: Back Surgery, Tonsillectomy Additional Past Surgical History / Comment(s): Cervical and low back surgery Past Anesthesia/Blood Transfusion Reactions: No Reported Reaction Past Psychological History: Anxiety, Bipolar, Depression, PTSD Smoking Status: Former smoker Past Alcohol Use History: None Reported Past Drug Use History: None Reported - Past Family History Sister(s) Family Medical History: Cancer, Renal Disease Additional Family Medical History / Comment(s): breast cancer, kidney cancer Mother Family Medical History: Cancer, Hypertension Additional Family Medical History / Comment(s): breast Father Additional Family Medical History / Comment(s): Father of a cardiac arrest. Medications and Allergies Home Medications Medication Instructions Recorded Confirmed Type Levothyroxine Sodium [Synthroid] 50 mcg PO DAILY 08/11/19 08/15/21 History Morphine Sulfate Ir [MSIR] 30 mg PO QID PRN 02/06/20 08/15/21 History QUEtiapine FUMARATE [SEROquel] 800 mg PO HS 02/06/20 08/15/21 History Oxybutynin Chloride [Ditropan XL] 10 mg PO DAILY 06/11/20 08/15/21 History Ascorbic Acid [Vitamin C] 500 mg PO DAILY 08/15/21 08/15/21 History Aspirin EC [Ecotrin Low Dose] 81 mg PO DAILY 08/15/21 08/15/21 History Cholecalciferol [Vitamin D3 (125 125 mcg PO DAILY 08/15/21 08/15/21 History Mcg = 5000 Iu)] Cyanocobalamin [Vitamin B-12] 500 mcg PO DAILY 08/15/21 08/15/21 History Divalproex [Depakote] 250 mg PO BID 08/15/21 08/15/21 History Docusate [Colace] 300 mg PO DAILY 08/15/21 08/15/21 History FLUoxetine HCL 40 mg PO DAILY 08/15/21 08/15/21 History LORazepam [Ativan] 2 mg PO BID PRN 08/15/21 08/15/21 History [place] Carbonate [[place] 300 mg PO BID 08/15/21 08/15/21 History Carbonate ER] traZODone HCL 300 mg PO HS 08/15/21 08/15/21 History Allergies Allergy/AdvReac Type Severity Reaction Status Date / Time latex Allergy Unknown Rash/Hives Verified 08/15/21 14:28 Physical Exam Osteopathic Statement: *. No significant issues noted on an osteopathic structu ral exam other than those noted in the History and Physical/Consult. Vitals: Vital Signs Temp Pulse Resp BP Pulse Ox 08/15/21 17:00 98.2 F 125 H 18 130/97 94 L 08/15/21 13:10 71 18 115/68 95 08/15/21 11:55 98.2 F 89 18 132/72 95 Intake and Output 08/15/21 08/15/21 08/15/21 06:59 14:59 22:59 Other: Weight 68.039 kg Results CBC & Chem 7: 08/15/21 12:50 08/15/21 12:50 Labs: Abnormal Lab Results - Last 24 Hours (Table) 08/15/21 08/15/21 08/15/21 Range/Units 12:47 12:50 12:50 WBC 11.1 H (3.8-10.6) k/uL RBC 3.36 L (3.80-5.40) m/uL Hgb 9.4 L (11.4-16.0) gm/dL Hct 29.5 L (34.0-46.0) % RDW 15.6 H (11.5-15.5) % Plt Count 144 L (150-450) k/uL Sodium 135 L (137-145) mmol/L Potassium 3.2 L (3.5-5.1) mmol/L Carbon Dioxide 21 L (22-30) mmol/L BUN 20 H (7-17) mg/dL Glucose 101 H (74-99) mg/dL POC Glucose (mg/dL) 104 H (75-99) mg/dL AST 186 H (14-36) U/L ALT 113 H (4-34) U/L Alkaline Phosphatase 197 H (38-126) U/L Total Protein 5.9 L (6.3-8.2) g/dL Albumin 3.0 L (3.5-5.0) g/dL Urine Protein (Negative) Urine Blood (Negative) Ur Leukocyte Esterase (Negative) Urine WBC (0-5) /hpf Urine Bacteria (None) /hpf Urine Mucus (None) /hpf 08/15/21 Range/Units 13:06 WBC (3.8-10.6) k/uL RBC (3.80-5.40) m/uL Hgb (11.4-16.0) gm/dL Hct (34.0-46.0) % RDW (11.5-15.5) % Plt Count (150-450) k/uL Sodium (137-145) mmol/L Potassium (3.5-5.1) mmol/L Carbon Dioxide (22-30) mmol/L BUN (7-17) mg/dL Glucose (74-99) mg/dL POC Glucose (mg/dL) (75-99) mg/dL AST (14-36) U/L ALT (4-34) U/L Alkaline Phosphatase (38-126) U/L Total Protein (6.3-8.2) g/dL Albumin (3.5-5.0) g/dL Urine Protein Trace H (Negative) Urine Blood Trace H (Negative) Ur Leukocyte Esterase Large H (Negative) Urine WBC 37 H (0-5) /hpf Urine Bacteria Rare H (None) /hpf Urine Mucus Rare H (None) /hpf
[2021-08-15] MEDS: SODIUM CHLORIDE 0.9% 1,000 ML IV STA ×2 (18:33→19:05)
[2021-08-15] MEDS ORDERED: SODIUM CHLORIDE 0.9% 500 ML 500 ML IV ONE (19:03)
[2021-08-15] MEDS ORDERED: LITHIUM CARBONATE 300 MG CAP PO SCH (21:00)
[2021-08-16] MEDS: QUEtiapine 400 MG TAB PO SCH ×2 (00:02→22:15)
[2021-08-16] MEDS: DIVALPROEX 250 MG TABLET.DR PO SCH ×3 (00:02→22:15)
[2021-08-16] MEDS: traZODone HCL 100 MG TAB PO SCH ×2 (00:02→22:15)
[2021-08-16] MEDS: HEPARIN SODIUM,PORCINE/PF 5,000 UNIT/0.5 ML SYRINGE SQ SCH ×4 (00:02→22:16)
[2021-08-16 01:19] LABS: VBG PH 7.34 (7.31-7.41)
[2021-08-16] MEDS: LEVOTHYROXINE 50 MCG TAB PO SCH (06:06)
[2021-08-16] MEDS: DOCUSATE 100 MG CAP PO SCH (08:36)
[2021-08-16] MEDS: ASCORBIC ACID 500 MG TAB PO SCH (08:37)
[2021-08-16] MEDS: ASPIRIN 81 MG PO SCH (08:37)
[2021-08-16] MEDS: CYANOCOBALAMIN 500 MCG TAB PO SCH (08:37)
[2021-08-16] MEDS: CHOLECALCIFEROL 125 MCG (5000 IU) TABLET PO SCH (08:37)
[2021-08-16] MEDS: FLUoxetine HCL 20 MG CAP PO SCH (08:37)
[2021-08-16] MEDS: OXYBUTYNIN 10 MG TAB.ER.24 PO SCH (08:39)
[2021-08-16 08:53] LABS: HCT 27.5 % (37.2-46.3); HGB 9.2 g/dL (12.0-15.0); MCH 27.8 pg (27.0-32.0); MCHC 33.5 g/dL (32.0-37.0); MCV 83.1 fL (80.0-97.0); Mean Platelet Volume 12.1 fL (9.5-12.2); NRBC Per 100 WBC 0 /100 WBCS (0.0-0.0); Platelet Count 114 X 10*3/uL (140-440); RBC 3.31 X 10*6/uL (4.10-5.20); RDW 16.3 % (11.5-14.5); WBC 12.78 X 10*3/uL (4.50-10.00)
[2021-08-16] MEDS: MORPHINE SULFATE IR 15 MG TABLET PO PRN ×2 (09:22→18:05)
[2021-08-16 09:57] LABS: Magnesium 2.1 mg/dL (1.5-2.4)
[2021-08-16 09:59] LABS: Basophils # (A) 0.04 X 10*3/uL (0.00-0.10); Basophils % (A) 0.3 %; Eosinophils # (A) 0.01 X 10*3/uL (0.04-0.35); Eosinophils % (A) 0.1 %; Immature Grans, Automated 2.7 %; Lymphocytes # (A) 1.61 X 10*3/uL (0.90-5.00); Lymphocytes % (A) 12.6 %; Monocytes # (A) 0.94 X 10*3/uL (0.20-1.00); Monocytes % (A) 7.4 %; Neutrophils # (A) 9.84 X 10*3/uL (1.80-7.70); Neutrophils % (A) 76.9 %; Rouleaux PRESENT
[2021-08-16] MEDS ORDERED: VANCOMYCIN 1,250 MG in SODIUM CHLORIDE 0.9% 250 ML IVPB SCH (10:00)
[2021-08-16 10:15] LABS: African American GFR (CKD) 61.4 (60.0-200.0); Albumin 2.7 g/dL (3.8-4.9); Albumin/Globulin Ratio 1.13 (1.60-3.17); Anion Gap 12.2 mmol/L (10.00-18.00); BUN/Creat Ratio 17.64 Ratio (12.00-20.00); Bilirubin, Conjugated 0.72 mg/dL (0.20-0.40); Bilirubin,Unconjugated 0.18 mg/dL (0.20-1.00); Blood Urea Nitrogen 19.4 mg/dL (9.0-27.0); Calcium 8.2 mg/dL (8.7-10.3); Carbon Dioxide 19.8 mmol/L (20.0-27.5); Globulin 2.4 g/dL (1.6-3.3); Potassium 3.6 mmol/L (3.5-5.5); Total Bilirubin 0.9 mg/dL (0.30-1.20); Total Protein 5.1 g/dL (6.2-8.2)
--- NOTE | 2021-08-16 10:38 | P.PN ---
Subjective Progress Note Date: 08/16/21 No new complaints today. Pt looks significantly improved from yesterday. BCx growing GNRs. Gen: in no apparent distress, resting comfortably in bed Eyes: PERRL, no scleral injection or icterus HENT: normocephalic, atraumatic, good hearing acuity, moist mucous membranes Neck: no tracheal deviation, full range of motion Resp: good air exchange, breathing comfortably with no accessory muscle use, no tactile fremitus CVS: good distal perfusion x 4, no pitting edema GI: soft, NTTP, ND, no hepatosplenomegaly : no suprapubic tenderness, no CVAT, nichols catheter not present MSK: no clubbing, no cyanosis, no noted contractures of extremities Skin: no noted rashes, petechiae; temperature of skin is appropriate Neuro: moving all extremities without signs of weakness, CN II-XII intact Psych: cooperative, euthymic mood, insight and judgment intact Labs and imaging reviewed as above Assessment/plan: Sepsis secondary to left-sided pyelonephritis Multiple falls -Admit inpatient, telemetry -Follow blood culture, growing GNRs -Follow urine culture, pending -Vancomycin, ceftriaxone --> d/c vanco, continue ceftriaxone on 08/16 -Pain control -Tylenol when necessary for pain or fever -Nausea control -PT/OT Volume overload Elevated LFTs -BNP 448 -Echo pending -Hold off on IV fluids or diuretics at this time -Daily labs Seizure disorder -Patient's valproic acid level is less than 10 -Resume valproic acid -Discontinue [place] Bipolar disorder Borderline personality disorder PTSD Fibromyalgia Objective sleep apnea Hypertension COPD without exacerbation Hypothyroidism Insomnia -Home medications reviewed and reconciled Patient is full code DVT prophylaxis with heparin 3 times a day Objective - Vital Signs Vital signs: Vital Signs Temp 98.4 F 08/16/21 02:00 Pulse 71 08/16/21 02:00 Resp 17 08/16/21 02:00 BP 95/61 08/16/21 02:00 Pulse Ox 96 08/16/21 02:00 FiO2 Intake & Output 08/15/21 08/16/21 08/16/21 18:59 06:59 18:59 Weight 68.039 kg 68.039 kg Other: # Voids 2 - Labs CBC & Chem 7: 08/16/21 04:26 08/16/21 04:26 Labs: Abnormal Lab Results - Last 24 Hours (Table) 08/15/21 08/15/21 08/15/21 Range/Units 12:47 12:50 12:50 WBC 11.1 H (3.8-10.6) k/uL RBC 3.36 L (3.80-5.40) m/uL Hgb 9.4 L (11.4-16.0) gm/dL Hct 29.5 L (34.0-46.0) % RDW 15.6 H (11.5-15.5) % Plt Count 144 L (150-450) k/uL Plt Count Comment Immature Gran # (0.00-0.04) X 10*3/uL Neutrophils # (1.80-7.70) X 10*3/uL Eosinophils # (0.04-0.35) X 10*3/uL VBG HCO3 (24-28) mmol/L Sodium 135 L (137-145) mmol/L Potassium 3.2 L (3.5-5.1) mmol/L Chloride (96-109) mmol/L Carbon Dioxide 21 L (22-30) mmol/L BUN 20 H (7-17) mg/dL Est GFR (CKD-EPI)NonAf (60.0-200.0) Glucose 101 H (74-99) mg/dL POC Glucose (mg/dL) 104 H (75-99) mg/dL Calcium (8.7-10.3) mg/dL Conjugated Bilirubin (0.20-0.40) mg/dL Unconjugated Bilirubin (0.20-1.00) mg/dL AST 186 H (14-36) U/L ALT 113 H (4-34) U/L Alkaline Phosphatase 197 H (38-126) U/L Total Protein 5.9 L (6.3-8.2) g/dL Albumin 3.0 L (3.5-5.0) g/dL Albumin/Globulin Ratio (1.60-3.17) g/dL Urine Protein (Negative) Urine Blood (Negative) Ur Leukocyte Esterase (Negative) Urine WBC (0-5) /hpf Urine Bacteria (None) /hpf Urine Mucus (None) /hpf 08/15/21 08/16/21 08/16/21 Range/Units 13:06 00:51 04:26 WBC 12.78 H (3.8-10.6) k/uL RBC 3.31 L (3.80-5.40) m/uL Hgb 9.2 L (11.4-16.0) gm/dL Hct 27.5 L (34.0-46.0) % RDW 16.3 H (11.5-15.5) % Plt Count 114 L (150-450) k/uL Plt Count Comment DECREASED A Immature Gran # 0.34 H (0.00-0.04) X 10*3/uL Neutrophils # 9.84 H (1.80-7.70) X 10*3/uL Eosinophils # 0.01 L (0.04-0.35) X 10*3/uL VBG HCO3 21 L (24-28) mmol/L Sodium (137-145) mmol/L Potassium (3.5-5.1) mmol/L Chloride (96-109) mmol/L Carbon Dioxide (22-30) mmol/L BUN (7-17) mg/dL Est GFR (CKD-EPI)NonAf (60.0-200.0) Glucose (74-99) mg/dL POC Glucose (mg/dL) (75-99) mg/dL Calcium (8.7-10.3) mg/dL Conjugated Bilirubin (0.20-0.40) mg/dL Unconjugated Bilirubin (0.20-1.00) mg/dL AST (14-36) U/L ALT (4-34) U/L Alkaline Phosphatase (38-126) U/L Total Protein (6.3-8.2) g/dL Albumin (3.5-5.0) g/dL Albumin/Globulin Ratio (1.60-3.17) g/dL Urine Protein Trace H (Negative) Urine Blood Trace H (Negative) Ur Leukocyte Esterase Large H (Negative) Urine WBC 37 H (0-5) /hpf Urine Bacteria Rare H (None) /hpf Urine Mucus Rare H (None) /hpf 08/16/21 Range/Units 04:26 WBC (3.8-10.6) k/uL RBC (3.80-5.40) m/uL Hgb (11.4-16.0) gm/dL Hct (34.0-46.0) % RDW (11.5-15.5) % Plt Count (150-450) k/uL Plt Count Comment Immature Gran # (0.00-0.04) X 10*3/uL Neutrophils # (1.80-7.70) X 10*3/uL Eosinophils # (0.04-0.35) X 10*3/uL VBG HCO3 (24-28) mmol/L Sodium (137-145) mmol/L Potassium (3.5-5.1) mmol/L Chloride 110 H (96-109) mmol/L Carbon Dioxide 19.8 L (22-30) mmol/L BUN (7-17) mg/dL Est GFR (CKD-EPI)NonAf 53.0 L (60.0-200.0) Glucose (74-99) mg/dL POC Glucose (mg/dL) (75-99) mg/dL Calcium 8.2 L (8.7-10.3) mg/dL Conjugated Bilirubin 0.72 H (0.20-0.40) mg/dL Unconjugated Bilirubin 0.18 L (0.20-1.00) mg/dL AST 71 H (14-36) U/L ALT 76 H (4-34) U/L Alkaline Phosphatase 151 H (38-126) U/L Total Protein 5.1 L (6.3-8.2) g/dL Albumin 2.7 L (3.5-5.0) g/dL Albumin/Globulin Ratio 1.13 L (1.60-3.17) g/dL Urine Protein (Negative) Urine Blood (Negative) Ur Leukocyte Esterase (Negative) Urine WBC (0-5) /hpf Urine Bacteria (None) /hpf Urine Mucus (None) /hpf Microbiology - Last 24 Hours (Table) 08/15/21 17:15 Blood Culture - Final Blood 08/15/21 17:32 Blood Culture - Final Blood 08/15/21 13:06 Urine Culture - Preliminary Urine,Voided
--- NOTE | 2021-08-16 11:04 | CA ---
Transthoracic Echo Report Name: Nataly Vick Age: 66 Gender: F : 1955 Exam Date: 08/16/2021 08:14 Exam Location: [facility] Ht (in): 62 Wt (lb): 150 Ordering Physician: Presley Fields MD Attending/Referring Phys: Snowmaker Roseline Wadsworth RDCS Procedure CPT: Indications: Vascular congestion Cardiac Hx: Technical Quality: Good Contrast 1: Total Dose (mL): Contrast 2: Total Dose (mL): MEASUREMENTS (Male / Female) Normal Values 2D ECHO LV Diastolic Diameter PLAX 4.0 cm 4.2 - 5.9 / 3.9 - 5.3 cm LV Systolic Diameter PLAX 2.7 cm IVS Diastolic Thickness 1.3 cm 0.6 - 1.0 / 0.6 - 0.9 cm LVPW Diastolic Thickness 1.2 cm 0.6 - 1.0 / 0.6 - 0.9 cm LV Relative Wall Thickness 0.6 RV Internal Dim ED PLAX 3.0 cm LA Systolic Diameter LX 3.2 cm 3.0 - 4.0 / 2.7 - 3.8 cm LA Volume 40.1 cm??? 18 - 58 / 22 - 52 cm??? M-MODE Aortic Root Diameter MM 3.0 cm MV E Point Septal Separation 0.6 cm AV Cusp Separation MM 2.2 cm DOPPLER AV Peak Velocity 180.2 cm/s AV Peak Gradient 13.0 mmHg AI Peak Velocity 297.4 cm/s AI Peak Gradient 35.4 mmHg AI Pressure Half Time 857.1 ms MV Area PHT 3.1 cm??? Mitral E Point Velocity 85.8 cm/s Mitral A Point Velocity 97.7 cm/s Mitral E to A Ratio 0.9 MV Deceleration Time 246.3 ms MV E' Velocity 6.5 cm/s Mitral E to MV E' Ratio 13.1 TR Peak Velocity 301.9 cm/s TR Peak Gradient 36.5 mmHg Right Ventricular Systolic Press 40.7 mmHg FINDINGS Left Ventricle Left ventricular ejection fraction is estimated at 60-65 %. Left ventricular cavity size normal. Left ventricular wall thickness normal. Right Ventricle Normal right ventricular size and function. Mild pulmonary hypertension. Right Atrium Normal right atrial size. Left Atrium Normal left atrial size. No evidence for an atrial septal defect. Mitral Valve Trace to mild mitral regurgitation. Aortic Valve Trileaflet aortic valve. Trace to mild aortic regurgitation. Tricuspid Valve Mild tricuspid regurgitation. Pulmonic Valve Trace pulmonic regurgitation. Pericardium Normal pericardium. Aorta Normal size aortic root and proximal ascending aorta. CONCLUSIONS Normal LV systolic function Mild Previewed by: Dr. Davon Bellamy MD (Electronically Signed) Final Date: 16 August 2021 11:03
[2021-08-17] MEDS: LEVOTHYROXINE 50 MCG TAB PO SCH (06:14)
[2021-08-17] MEDS: FLUoxetine HCL 20 MG CAP PO SCH (07:21)
[2021-08-17] MEDS: HEPARIN SODIUM,PORCINE/PF 5,000 UNIT/0.5 ML SYRINGE SQ SCH ×3 (07:21→23:12)
[2021-08-17] MEDS: OXYBUTYNIN 10 MG TAB.ER.24 PO SCH (07:22)
[2021-08-17] MEDS: CHOLECALCIFEROL 125 MCG (5000 IU) TABLET PO SCH (07:22)
[2021-08-17] MEDS: ASPIRIN 81 MG PO SCH (07:22)
[2021-08-17] MEDS: CYANOCOBALAMIN 500 MCG TAB PO SCH (07:22)
[2021-08-17] MEDS: ASCORBIC ACID 500 MG TAB PO SCH (07:22)
[2021-08-17] MEDS: DIVALPROEX 250 MG TABLET.DR PO SCH ×2 (07:22→21:12)
[2021-08-17] MEDS: DOCUSATE 100 MG CAP PO SCH (07:22)
--- NOTE | 2021-08-17 08:50 | P.PN ---
Subjective Progress Note Date: 08/17/21 No new complaints today. Patient still continues to report dysuria, back/flank pain. The cultures are growing E. coli, urine cultures are growing gram- negative bacilli. Continues to spike fevers overnight Gen: in no apparent distress, resting comfortably in bed Eyes: PERRL, no scleral injection or icterus HENT: normocephalic, atraumatic, good hearing acuity, moist mucous membranes Neck: no tracheal deviation, full range of motion Resp: good air exchange, breathing comfortably with no accessory muscle use, no tactile fremitus CVS: good distal perfusion x 4, no pitting edema GI: soft, NTTP, ND, no hepatosplenomegaly : no suprapubic tenderness, no CVAT, nichols catheter not present MSK: no clubbing, no cyanosis, no noted contractures of extremities Skin: no noted rashes, petechiae; temperature of skin is appropriate Neuro: moving all extremities without signs of weakness, CN II-XII intact Psych: cooperative, euthymic mood, insight and judgment intact Labs and imaging reviewed as above Assessment/plan: Sepsis secondary to left-sided pyelonephritis Multiple falls -Admit inpatient, telemetry -Follow blood culture, growing E. coli, sensitivity pending -Follow urine culture, gram-negative rods -Vancomycin, ceftriaxone --> d/c vanco, continue ceftriaxone on 08/16 -Pain control -Tylenol when necessary for pain or fever -Nausea control -PT/OT Volume overload Elevated LFTs -BNP 448 -Echo with ejection fraction of 60-65%, no evidence of diastolic dysfunction -Hold off on IV fluids or diuretics at this time -Daily labs Seizure disorder -Patient's valproic acid level is less than 10 -Resume valproic acid -Discontinue [place] Bipolar disorder Borderline personality disorder PTSD Fibromyalgia Objective sleep apnea Hypertension COPD without exacerbation Hypothyroidism Insomnia -Home medications reviewed and reconciled Patient is full code DVT prophylaxis with heparin 3 times a day Objective - Vital Signs Vital signs: Vital Signs Temp 98.6 F 08/17/21 08:37 Pulse 76 08/17/21 08:37 Resp 14 08/17/21 08:28 BP 93/60 08/17/21 08:37 Pulse Ox 94 L 08/17/21 08:28 FiO2 Intake & Output 06/11/22 06/12/22 06/12/22 18:59 06:59 18:59 Intake Total 700 Balance 700 Intake: Intake, IV Titration 700 Amount Sodium Chloride 0.9% 1, 600 000 ml @ 100 mls/hr IV . Q10H STA Rx#:[id number] cefTRIAXone 1 gm In 100 Sodium Chloride 0.9% 50 ml @ 100 mls/hr IVPB ONCE ONE Rx#:[id number] Other: # Voids 3 1 - Labs CBC & Chem 7: 08/16/21 04:26 08/16/21 04:26 Labs: Abnormal Lab Results - Last 24 Hours (Table) 08/16/21 08/16/21 Range/Units 04:26 04:26 WBC 12.78 H (4.50-10.00) X 10*3/uL RBC 3.31 L (4.10-5.20) X 10*6/uL Hgb 9.2 L (12.0-15.0) g/dL Hct 27.5 L (37.2-46.3) % RDW 16.3 H (11.5-14.5) % Plt Count 114 L (140-440) X 10*3/uL Plt Count Comment DECREASED A Immature Gran # 0.34 H (0.00-0.04) X 10*3/uL Neutrophils # 9.84 H (1.80-7.70) X 10*3/uL Eosinophils # 0.01 L (0.04-0.35) X 10*3/uL Chloride 110 H (96-109) mmol/L Carbon Dioxide 19.8 L (20.0-27.5) mmol/L Est GFR (CKD-EPI)NonAf 53.0 L (60.0-200.0) Calcium 8.2 L (8.7-10.3) mg/dL Conjugated Bilirubin 0.72 H (0.20-0.40) mg/dL Unconjugated Bilirubin 0.18 L (0.20-1.00) mg/dL AST 71 H (13-35) U/L ALT 76 H (8-44) U/L Alkaline Phosphatase 151 H (41-126) U/L Total Protein 5.1 L (6.2-8.2) g/dL Albumin 2.7 L (3.8-4.9) g/dL Albumin/Globulin Ratio 1.13 L (1.60-3.17) g/dL Microbiology - Last 24 Hours (Table) 08/15/21 13:06 Urine Culture - Preliminary Urine,Voided Gram Neg Bacilli 08/15/21 17:15 Blood Culture Gram Stain - Preliminary Blood 08/15/21 17:32 Blood Culture Gram Stain - Preliminary Blood Blood Culture - Preliminary Escherichia coli 08/15/21 17:15 Blood Culture - Final Blood 08/15/21 17:32 Blood Culture - Final Blood
[2021-08-17 09:22] LABS: Basophils # (A) 0.03 X 10*3/uL (0.00-0.10); Basophils % (A) 0.3 %; Eosinophils # (A) 0.19 X 10*3/uL (0.04-0.35); Eosinophils % (A) 2.1 %; HCT 26.2 % (37.2-46.3); HGB 8.6 g/dL (12.0-15.0); Immature Grans, Automated 4.8 %; Lymphocytes # (A) 1.61 X 10*3/uL (0.90-5.00); Lymphocytes % (A) 17.6 %; MCH 27.2 pg (27.0-32.0); MCHC 32.8 g/dL (32.0-37.0); MCV 82.9 fL (80.0-97.0); Mean Platelet Volume 11.7 fL (9.5-12.2); Monocytes % (A) 9.8 %; NRBC Per 100 WBC 0 /100 WBCS (0.0-0.0); Neutrophils # (A) 5.99 X 10*3/uL (1.80-7.70); Neutrophils % (A) 65.4 %; Platelet Count 123 X 10*3/uL (140-440); RBC 3.16 X 10*6/uL (4.10-5.20); WBC 9.16 X 10*3/uL (4.50-10.00)
[2021-08-17 09:51] LABS: African American GFR (CKD) 90.3 (60.0-200.0); Anion Gap 8.5 mmol/L (10.00-18.00); BUN/Creat Ratio 15.5 Ratio (12.00-20.00); Blood Urea Nitrogen 12.4 mg/dL (9.0-27.0); Calcium 8.1 mg/dL (8.7-10.3); Carbon Dioxide 19.5 mmol/L (20.0-27.5); Magnesium 2.2 mg/dL (1.5-2.4); Non-African American GFR(CKD) 77.9 (60.0-200.0); Potassium 3.6 mmol/L (3.5-5.5)
[2021-08-17] MEDS: MORPHINE SULFATE IR 15 MG TABLET PO PRN (16:22)
[2021-08-17] MEDS: traZODone HCL 100 MG TAB PO SCH (21:12)
[2021-08-17] MEDS: QUEtiapine 400 MG TAB PO SCH (21:12)
[2021-08-18] MEDS: LEVOTHYROXINE 50 MCG TAB PO SCH (05:35)
[2021-08-18] MEDS: HEPARIN SODIUM,PORCINE/PF 5,000 UNIT/0.5 ML SYRINGE SQ SCH ×2 (07:44→17:06)
[2021-08-18] MEDS: DIVALPROEX 250 MG TABLET.DR PO SCH ×2 (07:44→20:14)
[2021-08-18] MEDS: DOCUSATE 100 MG CAP PO SCH (07:45)
[2021-08-18] MEDS: CHOLECALCIFEROL 125 MCG (5000 IU) TABLET PO SCH (07:45)
[2021-08-18] MEDS: OXYBUTYNIN 10 MG TAB.ER.24 PO SCH (07:45)
[2021-08-18] MEDS: ASPIRIN 81 MG PO SCH (07:45)
[2021-08-18] MEDS: ASCORBIC ACID 500 MG TAB PO SCH (07:45)
[2021-08-18] MEDS: FLUoxetine HCL 20 MG CAP PO SCH (07:46)
[2021-08-18] MEDS: CYANOCOBALAMIN 500 MCG TAB PO SCH (07:46)
--- NOTE | 2021-08-18 10:09 | P.PN ---
Subjective Progress Note Date: 08/18/21 No new complaints today. The cultures are growing E. coli,pansensitive; urine cultures are growing E. coli as well. No fevers overnight. O2 back to room air. Gen: in no apparent distress, resting comfortably in bed Eyes: PERRL, no scleral injection or icterus HENT: normocephalic, atraumatic, good hearing acuity, moist mucous membranes Neck: no tracheal deviation, full range of motion Resp: good air exchange, breathing comfortably with no accessory muscle use, no tactile fremitus CVS: good distal perfusion x 4, no pitting edema GI: soft, NTTP, ND, no hepatosplenomegaly : no suprapubic tenderness, no CVAT, nichols catheter not present MSK: no clubbing, no cyanosis, no noted contractures of extremities Skin: no noted rashes, petechiae; temperature of skin is appropriate Neuro: moving all extremities without signs of weakness, CN II-XII intact Psych: cooperative, euthymic mood, insight and judgment intact Labs and imaging reviewed as above Assessment/plan: Sepsis secondary to left-sided pyelonephritis Multiple falls -Admit inpatient, telemetry -Follow blood culture, growing E. coli, sensitivity pending -Follow urine culture, gram-negative rods -Vancomycin, ceftriaxone --> d/c vanco, continue ceftriaxone on 08/16 -Pain control -Tylenol when necessary for pain or fever -Nausea control -PT/OT Volume overload Elevated LFTs -BNP 448 -Echo with ejection fraction of 60-65%, no evidence of diastolic dysfunction -Hold off on IV fluids or diuretics at this time -Daily labs Seizure disorder -Patient's valproic acid level is less than 10 -Resume valproic acid -Discontinue [place] Bipolar disorder Borderline personality disorder PTSD Fibromyalgia Objective sleep apnea Hypertension COPD without exacerbation Hypothyroidism Insomnia -Home medications reviewed and reconciled Patient is full code DVT prophylaxis with heparin 3 times a day Objective - Vital Signs Vital signs: Vital Signs Temp 97.8 F 08/18/21 07:53 Pulse 64 08/18/21 07:53 Resp 18 08/18/21 07:53 BP 104/71 08/18/21 07:53 Pulse Ox 96 08/18/21 07:53 FiO2 Intake & Output 08/17/21 08/18/21 08/18/21 18:59 06:59 18:59 Intake Total 2640 Balance 2640 Intake: Oral 2640 Other: # Voids 5 4 # Bowel Movements 1 - Labs CBC & Chem 7: 08/17/21 06:29 08/17/21 06:29 Labs: Microbiology - Last 24 Hours (Table) 08/15/21 13:06 Urine Culture - Final Urine,Voided Escherichia coli 08/15/21 17:15 Blood Culture Gram Stain - Preliminary Blood Blood Culture - Preliminary Gram Neg Bacilli
[2021-08-18] MEDS: MORPHINE SULFATE IR 15 MG TABLET PO PRN (10:42)
[2021-08-18] MEDS: QUEtiapine 400 MG TAB PO SCH (20:14)
[2021-08-18] MEDS: traZODone HCL 100 MG TAB PO SCH (20:14)
[2021-08-19] MEDS: HEPARIN SODIUM,PORCINE/PF 5,000 UNIT/0.5 ML SYRINGE SQ SCH ×4 (00:02→23:32)
[2021-08-19] MEDS: LEVOTHYROXINE 50 MCG TAB PO SCH (06:02)
[2021-08-19 08:59] LABS: Anisocytosis Slight; Basophils % (A) 0 %; Eosinophils # (A) 0.1 k/uL (0-0.7); Eosinophils % (A) 2 %; HCT 30.9 % (34.0-46.0); HGB 9.2 gm/dL (11.4-16.0); Hypochromasia Marked; Lymphocytes # (A) 0.9 k/uL (1.0-4.8); Lymphocytes % (A) 13 %; MCH 27.6 pg (25.0-35.0); MCHC 29.9 g/dL (31.0-37.0); MCV 92.3 fL (80.0-100.0); Mean Platelet Volume 9.1; Monocytes # (A) 0.3 k/uL (0-1.0); Monocytes % (A) 4 %; Neutrophils # (A) 5.5 k/uL (1.3-7.7); Neutrophils % (A) 79 %; Platelet Count 201 k/uL (150-450); RBC 3.35 m/uL (3.80-5.40); RDW 16.7 % (11.5-15.5)
[2021-08-19] MEDS: DOCUSATE 100 MG CAP PO SCH (09:00)
[2021-08-19] MEDS: OXYBUTYNIN 10 MG TAB.ER.24 PO SCH (09:00)
[2021-08-19] MEDS: CYANOCOBALAMIN 500 MCG TAB PO SCH (09:00)
[2021-08-19] MEDS: FLUoxetine HCL 20 MG CAP PO SCH (09:00)
[2021-08-19] MEDS: CHOLECALCIFEROL 125 MCG (5000 IU) TABLET PO SCH (09:00)
[2021-08-19] MEDS: ASPIRIN 81 MG PO SCH (09:00)
[2021-08-19] MEDS: ASCORBIC ACID 500 MG TAB PO SCH (09:00)
[2021-08-19] MEDS: DIVALPROEX 250 MG TABLET.DR PO SCH ×2 (09:00→20:41)
[2021-08-19 09:28] LABS: African American GFR (CKD) >90 (>60 ml/min/1.73 sqM); Anion Gap 7 mmol/L; Blood Urea Nitrogen 6 mg/dL (7-17); Calcium 8.3 mg/dL (8.4-10.2); Carbon Dioxide 20 mmol/L (22-30); Chloride 112 mmol/L (98-107); Glucose 152 mg/dL (74-99); Magnesium 2.1 mg/dL (1.6-2.3); Non-African American GFR(CKD) 90 (>60 ml/min/1.73 sqM); Potassium 3.8 mmol/L (3.5-5.1); Sodium 139 mmol/L (137-145)
--- NOTE | 2021-08-19 13:26 | P.PN ---
Subjective Progress Note Date: 08/19/21 No new complaints today. Pending insurance auth prior to discharge. Gen: in no apparent distress, resting comfortably in bed Eyes: PERRL, no scleral injection or icterus HENT: normocephalic, atraumatic, good hearing acuity, moist mucous membranes Neck: no tracheal deviation, full range of motion Resp: good air exchange, breathing comfortably with no accessory muscle use, no tactile fremitus CVS: good distal perfusion x 4, no pitting edema GI: soft, NTTP, ND, no hepatosplenomegaly : no suprapubic tenderness, no CVAT, nichols catheter not present MSK: no clubbing, no cyanosis, no noted contractures of extremities Skin: no noted rashes, petechiae; temperature of skin is appropriate Neuro: moving all extremities without signs of weakness, CN II-XII intact Psych: cooperative, euthymic mood, insight and judgment intact Labs and imaging reviewed as above Assessment/plan: Sepsis secondary to left-sided pyelonephritis Multiple falls -Admit inpatient, telemetry -Follow blood culture, growing E. coli, sensitivity pending -Follow urine culture, gram-negative rods -Vancomycin, ceftriaxone --> d/c vanco, continue ceftriaxone on 08/16 -Pain control -Tylenol when necessary for pain or fever -Nausea control -PT/OT Volume overload Elevated LFTs -BNP 448 -Echo with ejection fraction of 60-65%, no evidence of diastolic dysfunction -Hold off on IV fluids or diuretics at this time -Daily labs Seizure disorder -Patient's valproic acid level is less than 10 -Resume valproic acid -Discontinue [place] Bipolar disorder Borderline personality disorder PTSD Fibromyalgia Objective sleep apnea Hypertension COPD without exacerbation Hypothyroidism Insomnia -Home medications reviewed and reconciled Patient is full code DVT prophylaxis with heparin 3 times a day Objective - Vital Signs Vital signs: Vital Signs Temp 98.5 F 08/19/21 07:00 Pulse 79 08/19/21 07:00 Resp 20 08/19/21 07:00 BP 138/82 08/19/21 07:00 Pulse Ox 95 08/19/21 07:00 FiO2 Intake & Output 08/18/21 08/19/21 08/19/21 18:59 06:59 18:59 Other: Voiding Method Bedside Commode # Voids 2 4 - Labs CBC & Chem 7: 08/19/21 08:28 08/19/21 08:28 Labs: Abnormal Lab Results - Last 24 Hours (Table) 08/19/21 08/19/21 Range/Units 08:28 08:28 RBC 3.35 L (3.80-5.40) m/uL Hgb 9.2 L (11.4-16.0) gm/dL Hct 30.9 L (34.0-46.0) % MCHC 29.9 L (31.0-37.0) g/dL RDW 16.7 H (11.5-15.5) % Lymphocytes # 0.9 L (1.0-4.8) k/uL Chloride 112 H (98-107) mmol/L Carbon Dioxide 20 L (22-30) mmol/L BUN 6 L (7-17) mg/dL Glucose 152 H (74-99) mg/dL Calcium 8.3 L (8.4-10.2) mg/dL Microbiology - Last 24 Hours (Table) 08/15/21 17:15 Blood Culture Gram Stain - Final Blood Blood Culture - Final Escherichia coli 08/15/21 17:32 Blood Culture Gram Stain - Final Blood Blood Culture - Final Escherichia coli
[2021-08-19] MEDS: ACETAMINOPHEN TAB 325 MG TAB PO PRN ×2 (15:17→20:52)
[2021-08-19] MEDS: traZODone HCL 100 MG TAB PO SCH (20:41)
[2021-08-19] MEDS: QUEtiapine 400 MG TAB PO SCH (20:41)
[2021-08-20 02:13] VITALS: PULSE 78
[2021-08-20] MEDS: LEVOTHYROXINE 50 MCG TAB PO SCH (05:45)
[2021-08-20 07:39] VITALS: BP 167/85; RESP 18; TEMP 98.3
[2021-08-20] MEDS: CHOLECALCIFEROL 125 MCG (5000 IU) TABLET PO SCH (09:15)
[2021-08-20] MEDS: ASPIRIN 81 MG PO SCH (09:15)
[2021-08-20] MEDS: CYANOCOBALAMIN 500 MCG TAB PO SCH (09:15)
[2021-08-20] MEDS: ASCORBIC ACID 500 MG TAB PO SCH (09:15)
[2021-08-20] MEDS: DIVALPROEX 250 MG TABLET.DR PO SCH (09:15)
[2021-08-20] MEDS: FLUoxetine HCL 20 MG CAP PO SCH (09:15)
[2021-08-20] MEDS: HEPARIN SODIUM,PORCINE/PF 5,000 UNIT/0.5 ML SYRINGE SQ SCH (09:15)
[2021-08-20] MEDS: DOCUSATE 100 MG CAP PO SCH (09:16)
[2021-08-20] MEDS: OXYBUTYNIN 10 MG TAB.ER.24 PO SCH (09:16)
--- NOTE | 2021-08-20 09:57 | P.DS ---
Providers Date of admission: 08/15/21 16:33 Expected date of discharge: 08/20/21 Attending physician: Presley Fields MD Primary care physician: Azam [id number] Course: Sepsis secondary to left-sided pyelonephritis Gram Negative Bacteremia, E coli Multiple falls Volume overload Elevated LFTs Seizure disorder Bipolar disorder Borderline personality disorder PTSD Fibromyalgia Objective sleep apnea Hypertension COPD without exacerbation Hypothyroidism Insomnia 66-year-old woman with medical history of mood disorder, insomnia, hypothyroidism, seizure disorder, COPD, hypertension, bipolar disorder, borderline personality, PTSD, fibromyalgia, PATRICIO presented for evaluation of multiple falls. In the emergency room, patient is afebrile, 130/97, heart rate is 133, 94% on 2 L nasal cannula. CBC is remarkable for leukocytosis, hemoglobin 9.4, platelets of 144; baseline hemoglobin is 11, baseline platelets are 250. Chemistry show hypernatremia to 135, hypokalemia to 3.2, carbon dioxide of 21, BUN is 20, creatinine is normal at 0.9. LFTs are remarkable for elevated AST/ALT of 186-113, elevated alkaline phosphatase of 197, total protein of 5.9, albumin of 3.0. Amylase/lipase are low. UA significant for trace protein, trace blood, large leukocyte esterase, 37 white blood cells, rare bacteria. Valproic acid level is less than 10. Covid was negative. Influenza A/B are negative. Chest x-ray shows an enlarged heart with a diffuse interstitial pattern with a left lower lobe infiltrate consistent with interstitial pneumonitis versus pulmonary venous congestion. Pelvis x-ray is negative for acute fracture. CT of the abdomen/pelvis significant for left- sided pyelonephritis, left-sided pyelitis, circumferential wall thickening at the hepatic flexure of the colon possibly related to neoplasm, focal bibasilar opacities left greater than right, 4 mm right basilar pulmonary nodule. Brain CT shows degenerative and nonspecific white matter changes suggestive of remote ischemia, as well as a remote bilateral septal infarct. Gallbladder ultrasound was negative for gallstones or biliary ductal dilation, no hydronephrosis on the right side. Patient was admitted inpatient for sepsis secondary to pyelonephritis. Her blood cultures grew pansensitive E coli which were consistent with her urine cultures. She recovered well after being treated with 5 hours of ceftriaxone, and was discharged to SNF for rehab with an additional 5 days of cefdinir to complete abx course for pyelonephritis with gram negative bacteremia I spent 38 minutes coordinating this complex discharge, discharge date is 08/20 Gen: in no apparent distress, resting comfortably in bed Eyes: PERRL, no scleral injection or icterus HENT: normocephalic, atraumatic, good hearing acuity, moist mucous membranes Neck: no tracheal deviation, full range of motion Resp: good air exchange, breathing comfortably with no accessory muscle use, no tactile fremitus CVS: good distal perfusion x 4, no pitting edema GI: soft, NTTP, ND, no hepatosplenomegaly : no suprapubic tenderness, no CVAT, nichols catheter not present MSK: no clubbing, no cyanosis, no noted contractures of extremities Skin: no noted rashes, petechiae; temperature of skin is appropriate Neuro: moving all extremities without signs of weakness, CN II-XII intact Psych: cooperative, euthymic mood, insight and judgment intact Patient Condition at Discharge: Good Plan - Discharge Summary New Discharge Prescriptions: New Cefdinir 300 mg PO Q12HR #12 cap Continue Levothyroxine Sodium [Synthroid] 50 mcg PO DAILY Morphine Sulfate Ir [MSIR] 30 mg PO QID PRN PRN Reason: Pain QUEtiapine FUMARATE [SEROquel] 800 mg PO HS Cyanocobalamin [Vitamin B-12] 500 mcg PO DAILY Ascorbic Acid [Vitamin C] 500 mg PO DAILY Docusate [Colace] 300 mg PO DAILY Cholecalciferol [Vitamin D3 (125 Mcg = 5000 Iu)] 125 mcg PO DAILY traZODone HCL 300 mg PO HS LORazepam [Ativan] 2 mg PO BID PRN PRN Reason: Anxiety Oxybutynin Chloride [Ditropan XL] 10 mg PO DAILY FLUoxetine HCL 40 mg PO DAILY Divalproex [Depakote] 250 mg PO BID Aspirin EC [Ecotrin Low Dose] 81 mg PO DAILY Discontinued [place] Carbonate [[place] Carbonate ER] 300 mg PO BID Discharge Medication List Levothyroxine Sodium [Synthroid] 50 mcg PO DAILY 08/11/19 [History] Morphine Sulfate Ir [MSIR] 30 mg PO QID PRN 02/06/20 [History] QUEtiapine FUMARATE [SEROquel] 800 mg PO HS 02/06/20 [History] Oxybutynin Chloride [Ditropan XL] 10 mg PO DAILY 06/11/20 [History] Ascorbic Acid [Vitamin C] 500 mg PO DAILY 08/15/21 [History] Aspirin EC [Ecotrin Low Dose] 81 mg PO DAILY 08/15/21 [History] Cholecalciferol [Vitamin D3 (125 Mcg = 5000 Iu)] 125 mcg PO DAILY 08/15/21 [History] Cyanocobalamin [Vitamin B-12] 500 mcg PO DAILY 08/15/21 [History] Divalproex [Depakote] 250 mg PO BID 08/15/21 [History] Docusate [Colace] 300 mg PO DAILY 08/15/21 [History] FLUoxetine HCL 40 mg PO DAILY 08/15/21 [History] LORazepam [Ativan] 2 mg PO BID PRN 08/15/21 [History] traZODone HCL 300 mg PO HS 08/15/21 [History] Cefdinir 300 mg PO Q12HR #12 cap 08/19/21 [Rx] Follow up Appointment(s)/Referral(s): [facility], [NON-STAFF] - As Needed Azam Self DO [Primary Care Provider] - 1-2 days Discharge Disposition: TRANSFER TO SNF/ECF
[2021-08-20] MEDS: ACETAMINOPHEN TAB 325 MG TAB PO PRN (11:05)
== END 2021-08-20 12:09 | disposition home health service (06) | DRG 872 ==
LOC: EC 11:47 → OBSVTOIN 16:33 → 6NMEDSUR 16:33 → 4SSUR 17:22
PROVIDERS: ADMIT Internal Medicine; ATTEND Internal Medicine
DX: A41.51 Sepsis due to Escherichia coli [E. coli] (principal); E87.1 Hypo-osmolality and hyponatremia; N12 Tubulo-interstitial nephritis, not specified as acute or chronic; Z20.822 Contact with and (suspected) exposure to COVID-19; R29.6 Repeated falls; G47.00 Insomnia, unspecified; E03.9 Hypothyroidism, unspecified; G40.909 Epilepsy, unspecified, not intractable, without status epilepticus; J44.9 Chronic obstructive pulmonary disease, unspecified; I10 Essential (primary) hypertension; F31.9 Bipolar disorder, unspecified; F60.3 Borderline personality disorder; F43.10 Post-traumatic stress disorder, unspecified; X58.XXXA Exposure to other specified factors, initial encounter; M79.7 Fibromyalgia; G47.33 Obstructive sleep apnea (adult) (pediatric); E86.0 Dehydration; G43.909 Migraine, unspecified, not intractable, without status migrainosus; M54.50 Low back pain, unspecified; M54.2 Cervicalgia; G89.29 Other chronic pain; D69.6 Thrombocytopenia, unspecified; D64.9 Anemia, unspecified; E87.6 Hypokalemia; E87.70 Fluid overload, unspecified; Z79.82 Long term (current) use of aspirin; Z79.890 Hormone replacement therapy; Z79.899 Other long term (current) drug therapy; Z87.891 Personal history of nicotine dependence; Z86.73 Personal history of transient ischemic attack (TIA), and cerebral infarction without residual deficits; Z86.14 Personal history of Methicillin resistant Staphylococcus aureus infection; Z87.440 Personal history of urinary (tract) infections; Z80.3 Family history of malignant neoplasm of breast; Z80.51 Family history of malignant neoplasm of kidney; Z82.41 Family history of sudden cardiac death; Z82.49 Family history of ischemic heart disease and other diseases of the circulatory system
CPT/HCPCS: 36415; 70450; 71046; 72170; 74177; 76705; 80048; 80053; 80076; 80164; 80178; 81001; 82150; 82803; 83605; 83690; 83735; 83880; 85025; 85610; 85730; 87040; 87077; 87086; 87186; 87502; 87635; 93005; 93306; 96361; 96365; 96366; 96368; 96375; 96376; 99285

== ENCOUNTER 2021-08-31 21:17 | Emergency (ER) | payer MEDICARE ==
[2021-08-31 21:29] VITALS: TEMP 97.5
--- NOTE | 2021-08-31 21:30 | ED ---
Altered Mental Status HPI - General Stated Complaint: MARION/Altered Time Seen by Provider: 08/31/21 21:21 Limitations: altered mental status (Patient appears delirious) - History of Present Illness Initial Comments: Patient is 66-year-old woman sent here from [facility] to be evaluated for altered mental status. Patient was found to be very sleepy over there. Nurses called EMS. Patient also when she was checked had pulse oximetry readings in the 80s. Nursing staff there was concerned she may have taken extra doses or inappropriate medications. On patient arrival here she is able answer simple questions. She states she has pain in the back but she is not able to characterize it. She denies having dyspnea. She is oriented to person and place. MD Complaint: altered mental status -: unknown Associated Symptoms: other (Back pain) Treatments Prior to Arrival: oxygen - Related Data Home Medications Medication Instructions Recorded Confirmed Levothyroxine Sodium [Synthroid] 50 mcg PO DAILY 08/11/19 08/15/21 QUEtiapine FUMARATE [SEROquel] 800 mg PO HS 02/06/20 08/15/21 Oxybutynin Chloride [Ditropan XL] 10 mg PO DAILY 06/11/20 08/15/21 Ascorbic Acid [Vitamin C] 500 mg PO DAILY 08/15/21 08/15/21 Aspirin EC [Ecotrin Low Dose] 81 mg PO DAILY 08/15/21 08/15/21 Cholecalciferol [Vitamin D3 (125 125 mcg PO DAILY 08/15/21 08/15/21 Mcg = 5000 Iu)] Cyanocobalamin [Vitamin B-12] 500 mcg PO DAILY 08/15/21 08/15/21 Divalproex [Depakote] 250 mg PO BID 08/15/21 08/15/21 Docusate [Colace] 300 mg PO DAILY 08/15/21 08/15/21 FLUoxetine HCL 40 mg PO DAILY 08/15/21 08/15/21 traZODone HCL 300 mg PO HS 08/15/21 08/15/21 Previous Rx's Medication Instructions Recorded Cefdinir 300 mg PO Q12HR #12 cap 08/19/21 LORazepam [Ativan] 2 mg PO BID PRN #6 tab 08/20/21 Morphine Sulfate Ir [MSIR] 30 mg PO QID PRN #12 tab 08/20/21 Sulfamethox-Tmp 800-160Mg [Bactrim 1 each PO Q12HR #6 tab 09/01/21 Ds] Allergies Allergy/AdvReac Type Severity Reaction Status Date / Time latex Allergy Unknown Rash/Hives Verified 08/31/21 21:22 Review of Systems ROS Statement: Those systems with pertinent positive or pertinent negative responses have been documented in the HPI. ROS Other: All systems not noted in ROS Statement are negative. Limitations: ROS unobtainable due to patients medical condition Respiratory: Denies: dyspnea Cardiovascular: Denies: chest pain Gastrointestinal: Denies: abdominal pain Musculoskeletal: Reports: back pain Neurological: Denies: headache Past Medical History Past Medical History: COPD, CVA/TIA, Fibromyalgia, Hypertension, Seizure Disorder, Sleep Apnea/CPAP/BIPAP, Thyroid Disorder Additional Past Medical History / Comment(s): Chronic pain mostly in neck/low back, chronic aspirin user -was taking 4-8 tablets a day for about 40 years but had accidental aspirin overdose in August 2019-ended up going into kidney failure and having to have dialysis in ICU-[facility] and started having seizures and hypertensive emergency-sent to [facility] and diagnosed with PRES encephalopathy, pt states CVA 08/2019 with memory problems/word finding problems/slow speech and occasional slurred speech, eating disorder, iron anemia, bronchitis, sinus problems, IBS, UTI with sepsis, hypothyroid, migraines. History of Any Multi-Drug Resistant Organisms: MRSA Date of last positivie culture/infection: 2004 MDRO Source:: unknown Past Surgical History: Back Surgery, Tonsillectomy Additional Past Surgical History / Comment(s): Cervical and low back surgery Past Anesthesia/Blood Transfusion Reactions: No Reported Reaction Smoking Status: Never smoker - Past Family History Sister(s) Family Medical History: Cancer, Renal Disease Additional Family Medical History / Comment(s): breast cancer, kidney cancer Mother Family Medical History: Cancer, Hypertension Additional Family Medical History / Comment(s): breast Father Additional Family Medical History / Comment(s): Father of a cardiac arrest. General Exam General appearance: obtunded Head exam: Present: atraumatic, normocephalic Eye exam: Absent: scleral icterus, conjunctival injection Pupils: Present: miosis ENT exam: Present: mucous membranes dry Neck exam: Present: normal inspection, full ROM. Absent: tenderness, meningismus Respiratory exam: Present: respiratory distress (Mild tachypnea), rhonchi. Absent: wheezes, rales, stridor, chest wall tenderness Cardiovascular Exam: Present: regular rate, normal rhythm, normal heart sounds. Absent: systolic murmur, diastolic murmur, rubs, gallop GI/Abdominal exam: Present: soft. Absent: distended, tenderness, guarding, rebound, rigid, mass Extremities exam: Present: normal inspection, normal capillary refill. Absent: pedal edema, calf tenderness Back exam: Present: normal inspection. Absent: CVA tenderness (R), CVA t enderness (L) Neurological exam: Present: altered, reflexes normal. Absent: motor sensory deficit Skin exam: Present: warm, dry, intact, normal color. Absent: rash Course Vital Signs 08/31/21 08/31/21 09/01/21 21:17 21:52 00:37 Temperature 97.5 F L Pulse Rate 85 91 Respiratory 22 17 26 H Rate Blood Pressure 107/51 170/76 O2 Sat by Pulse 98 Oximetry 09/01/21 09/01/21 02:54 06:29 Temperature Pulse Rate 74 78 Respiratory 18 24 Rate Blood Pressure 135/59 O2 Sat by Pulse 98 96 Oximetry Medical Decision Making - Medical Decision Making Patient is 66-year-old woman here for altered mental status. Her mentation did improve following Narcan administration. She was observed in emergency de partment and continues to be alert. - Lab Data Result diagrams: 08/31/21 21:48 08/31/21 22:27 Lab Results 08/31/21 08/31/21 08/31/21 Range/Units 21:22 21:35 21:48 WBC 9.4 (3.8-10.6) k/uL RBC 3.62 L (3.80-5.40) m/uL Hgb 10.3 L (11.4-16.0) gm/dL Hct 33.3 L (34.0-46.0) % MCV 92.0 (80.0-100.0) fL MCH 28.4 (25.0-35.0) pg MCHC 30.9 L (31.0-37.0) g/dL RDW 17.5 H (11.5-15.5) % Plt Count 299 (150-450) k/uL MPV 8.0 Neutrophils % 74 % Lymphocytes % 16 % Monocytes % 6 % Eosinophils % 2 % Basophils % 0 % Neutrophils # 7.0 (1.3-7.7) k/uL Lymphocytes # 1.5 (1.0-4.8) k/uL Monocytes # 0.6 (0-1.0) k/uL Eosinophils # 0.2 (0-0.7) k/uL Basophils # 0.0 (0-0.2) k/uL Hypochromasia Marked Anisocytosis Slight Sodium (137-145) mmol/L Potassium (3.5-5.1) mmol/L Chloride (98-107) mmol/L Carbon Dioxide (22-30) mmol/L Anion Gap mmol/L BUN (7-17) mg/dL Creatinine (0.52-1.04) mg/dL Est GFR (CKD-EPI)AfAm (>60 ml/min/1.73 sqM) Est GFR (CKD-EPI)NonAf (>60 ml/min/1.73 sqM) Glucose (74-99) mg/dL POC Glucose (mg/dL) 129 H (70-110) mg/dL POC Glu Toll Line Mechanic ID Lenora Herrera Calcium (8.4-10.2) mg/dL Total Bilirubin (0.2-1.3) mg/dL AST (14-36) U/L ALT (4-34) U/L Alkaline Phosphatase (38-126) U/L Ammonia (<30) umol/L Troponin I <0.012 (0.000-0.034) ng/mL Total Protein (6.3-8.2) g/dL Albumin (3.5-5.0) g/dL Urine Color Urine Appearance (Clear) Urine pH (5.0-8.0) Ur Specific [place] (1.001-1.035) Urine Protein (Negative) Urine Glucose (UA) (Negative) Urine Ketones (Negative) Urine Blood (Negative) Urine Nitrite (Negative) Urine Bilirubin (Negative) Urine Urobilinogen (<2.0) mg/dL Ur Leukocyte Esterase (Negative) Urine RBC (0-5) /hpf Urine WBC (0-5) /hpf Ur Squamous Epith Cells (0-4) /hpf Urine Bacteria (None) /hpf Urine Opiates Screen (NotDetected) Ur Oxycodone Screen (NotDetected) Urine Methadone Screen (NotDetected) Ur Propoxyphene Screen (NotDetected) Ur Barbiturates Screen (NotDetected) U Tricyclic Antidepress (NotDetected) Ur Phencyclidine Scrn (NotDetected) Ur Amphetamines Screen (NotDetected) U Methamphetamines Scrn (NotDetected) U Benzodiazepines Scrn (NotDetected) Urine Cocaine Screen (NotDetected) U Marijuana (THC) Screen (NotDetected) Serum Alcohol mg/dL 08/31/21 09/01/21 09/01/21 Range/Units 22:27 01:10 02:14 WBC (3.8-10.6) k/uL RBC (3.80-5.40) m/uL Hgb (11.4-16.0) gm/dL Hct (34.0-46.0) % MCV (80.0-100.0) fL MCH (25.0-35.0) pg MCHC (31.0-37.0) g/dL RDW (11.5-15.5) % Plt Count (150-450) k/uL MPV Neutrophils % % Lymphocytes % % Monocytes % % Eosinophils % % Basophils % % Neutrophils # (1.3-7.7) k/uL Lymphocytes # (1.0-4.8) k/uL Monocytes # (0-1.0) k/uL Eosinophils # (0-0.7) k/uL Basophils # (0-0.2) k/uL Hypochromasia Anisocytosis Sodium 138 (137-145) mmol/L Potassium 3.6 (3.5-5.1) mmol/L Chloride 107 (98-107) mmol/L Carbon Dioxide 22 (22-30) mmol/L Anion Gap 9 mmol/L BUN 10 (7-17) mg/dL Creatinine 0.80 (0.52-1.04) mg/dL Est GFR (CKD-EPI)AfAm >90 (>60 ml/min/1.73 sqM) Est GFR (CKD-EPI)NonAf 78 (>60 ml/min/1.73 sqM) Glucose 120 H (74-99) mg/dL POC Glucose (mg/dL) (70-110) mg/dL POC Glu Toll Line Mechanic ID Calcium 8.8 (8.4-10.2) mg/dL Total Bilirubin 0.4 (0.2-1.3) mg/dL AST 31 (14-36) U/L ALT 25 (4-34) U/L Alkaline Phosphatase 98 (38-126) U/L Ammonia <9 (<30) umol/L Troponin I (0.000-0.034) ng/mL Total Protein 6.6 (6.3-8.2) g/dL Albumin 3.5 (3.5-5.0) g/dL Urine Color Yellow Urine Appearance Cloudy H (Clear) Urine pH 6.5 (5.0-8.0) Ur Specific [place] 1.009 (1.001-1.035) Urine Protein Trace H (Negative) Urine Glucose (UA) Negative (Negative) Urine Ketones 1+ H (Negative) Urine Blood Negative (Negative) Urine Nitrite Positive H (Negative) Urine Bilirubin Negative (Negative) Urine Urobilinogen <2.0 (<2.0) mg/dL Ur Leukocyte Esterase Moderate H (Negative) Urine RBC 1 (0-5) /hpf Urine WBC 17 H (0-5) /hpf Ur Squamous Epith Cells 2 (0-4) /hpf Urine Bacteria Many H (None) /hpf Urine Opiates Screen Detected H (NotDetected) Ur Oxycodone Screen Not Detected (NotDetected) Urine Methadone Screen Not Detected (NotDetected) Ur Propoxyphene Screen Not Detected (NotDetected) Ur Barbiturates Screen Not Detected (NotDetected) U Tricyclic Antidepress Detected H (NotDetected) Ur Phencyclidine Scrn Not Detected (NotDetected) Ur Amphetamines Screen Not Detected (NotDetected) U Methamphetamines Scrn Not Detected (NotDetected) U Benzodiazepines Scrn Detected H (NotDetected) Urine Cocaine Screen Not Detected (NotDetected) U Marijuana (THC) Screen Not Detected (NotDetected) Serum Alcohol <10 mg/dL - EKG Data -: EKG Interpreted by Ma EKG shows normal: sinus rhythm, axis (Normal), intervals (Prolonged QT interval. Other intervals are normal), QRS complexes (Incomplete right bundle branch block.) Rate: normal (Rate 88 bpm) Disposition Clinical Impression: Urinary tract infection, Altered mental status Disposition: HOME SELF-CARE Condition: Good Instructions (If sedation given, give patient instructions): Altered Mental Status (ED) Prescriptions: Sulfamethox-Tmp 800-160Mg [Bactrim Ds] 1 each PO Q12HR #6 tab Is patient prescribed a controlled substance at d/c from ED?: No Referrals: Roman Oneil MD [Primary Care Provider] - 1-2 days
[2021-08-31 21:38] LABS: Glucose,Whole Blood 129 mg/dL (70-110)
[2021-08-31] MEDS ORDERED: NALOXONE 0.4 MG/ML 1 ML VIAL IVP STA (21:51)
--- NOTE | 2021-08-31 22:04 | XR ---
EXAMINATION TYPE: XR chest 1V portable DATE OF EXAM: 08/31/2021 COMPARISON: 08/15/2021 HISTORY: Altered mental status TECHNIQUE: Single view FINDINGS: There is some minimal atelectasis left lung base. Heart size is normal. There are no hilar masses. There is some tubing over the neck. IMPRESSION: There is some minimal atelectasis left lung base which is improved compared to old exam. No heart failure.
[2021-08-31 22:06] LABS: Anisocytosis Slight; Basophils % (A) 0 %; Eosinophils # (A) 0.2 k/uL (0-0.7); Eosinophils % (A) 2 %; HCT 33.3 % (34.0-46.0); HGB 10.3 gm/dL (11.4-16.0); Hypochromasia Marked; Lymphocytes # (A) 1.5 k/uL (1.0-4.8); Lymphocytes % (A) 16 %; MCH 28.4 pg (25.0-35.0); MCHC 30.9 g/dL (31.0-37.0); Monocytes # (A) 0.6 k/uL (0-1.0); Monocytes % (A) 6 %; Neutrophils % (A) 74 %; Platelet Count 299 k/uL (150-450); RBC 3.62 m/uL (3.80-5.40); RDW 17.5 % (11.5-15.5); WBC 9.4 k/uL (3.8-10.6)
[2021-08-31 22:57] LABS: ALT 25 U/L (4-34); AST 31 U/L (14-36); African American GFR (CKD) >90 (>60 ml/min/1.73 sqM); Albumin 3.5 g/dL (3.5-5.0); Alcohol <10 mg/dL; Alkaline Phosphatase 98 U/L (38-126); Anion Gap 9 mmol/L; Blood Urea Nitrogen 10 mg/dL (7-17); Calcium 8.8 mg/dL (8.4-10.2); Carbon Dioxide 22 mmol/L (22-30); Chloride 107 mmol/L (98-107); Glucose 120 mg/dL (74-99); Non-African American GFR(CKD) 78 (>60 ml/min/1.73 sqM); Potassium 3.6 mmol/L (3.5-5.1); Sodium 138 mmol/L (137-145); Total Bilirubin 0.4 mg/dL (0.2-1.3); Total Protein 6.6 g/dL (6.3-8.2)
--- NOTE | 2021-09-01 01:04 | CT ---
EXAM: CT Head Without Intravenous Contrast CLINICAL HISTORY: ITS.REASON CT Reason: altered mental status TECHNIQUE: Axial computed tomography images of the head/brain without intravenous contrast. CTDI is 49.27 mGy and DLP is 1111.4 mGy-cm. This CT exam was performed using one or more of the following dose reduction techniques: automated exposure control, adjustment of the mA and/or kV according to patient size, and/or use of iterative reconstruction technique. COMPARISON: 08.15.21 FINDINGS: Brain: No hemorrhage or mass effect. Unchanged posterior infarcts. Ventricles: No hydrocephalus. Bones/joints: Unremarkable. Soft tissues: Unremarkable. Sinuses: No air fluid level. Mastoid air cells: Clear. IMPRESSION: No acute hemorrhage, hydrocephalus, or mass effect.
[2021-09-01 02:44] LABS: Appearance,Urine Cloudy (Clear); Bacteria,Urine Many /hpf; Bilirubin,Urine Negative (Negative); Blood,Urine Negative (Negative); Color,Urine Yellow; Glucose,Urine (UA) Negative (Negative); Ketones,Urine 1+ (Negative); Leukocyte Esterase,Urine Moderate (Negative); Nitrite,Urine Positive (Negative); PH, Urine 6.5 (5.0-8.0); Protein,Urine Trace (Negative); RBC,Urine 1 /hpf (0-5); Specific Gravity,Urine 1.009 (1.001-1.035); Squamous Epithelial Cell,Urine 2 /hpf (0-4); Urobilinogen,Urine <2.0 mg/dL (<2.0); WBC,Urine 17 /hpf (0-5)
[2021-09-01 03:01] LABS: Amphetamine Screen,Urine Not Detected (NotDetected); Barbiturate Screen,Urine Not Detected (NotDetected); Benzodiazepines Screen,Urine Detected (NotDetected); Cocaine Screen,Urine Not Detected (NotDetected); Methadone Screen, Urine Not Detected (NotDetected); Opiate Screen,Urine Detected (NotDetected); Oxycodone Screen, Urine Not Detected (NotDetected); Phencyclidine Screen,Urine Not Detected (NotDetected); Tricyclic Antidepressant,Urine Detected (NotDetected); Urn Cannabinoid Scrn Not Detected (NotDetected)
[2021-09-01 06:31] VITALS: BP 135/59; PULSE 78; RESP 24
== END 2021-09-01 08:20 | disposition home or self-care (01) ==
LOC: EC 21:17
DX: R41.82 Altered mental status, unspecified (principal); N39.0 Urinary tract infection, site not specified; Z91.040 Latex allergy status; J44.9 Chronic obstructive pulmonary disease, unspecified
CPT/HCPCS: 36415; 93005; 80053; 82140; 84484; 85025; 81001; 80306; 87086; 87077; 87186; 71045; 70450; 99283; 96365; 96375; G0480; J2310; J0696; 80320; 99285

== ENCOUNTER 2021-09-03 00:13 | Emergency (ER) | payer MEDICARE ==
[2021-09-03] MEDS ORDERED: SODIUM CHLORIDE 0.9% 1,000 ML IV STA (00:25)
[2021-09-03] MEDS ORDERED: SODIUM CHLORIDE 0.9% 500 ML 500 ML IV STA (00:25)
[2021-09-03] MEDS ORDERED: NALOXONE 0.4 MG/ML 1 ML VIAL IM STA (00:25)
--- NOTE | 2021-09-03 00:29 | ED ---
Altered Mental Status HPI - General Stated Complaint: MARION Time Seen by Provider: 09/03/21 00:19 Source: EMS, RN notes reviewed, old records reviewed, Caregiver Mode of arrival: EMS Limitations: altered mental status, physical limitation - History of Present Illness Initial Comments: This is a 66-year-old female presenting is unresponsive patient. Patient presents from extended care facility with straight of accidental versus intentional overdose. Patient presents today for unresponsiveness and able answer questions. Patient does have history of benzodiazepine and opiate use MD Complaint: altered mental status, decreased responsiveness -: hour(s) Consistency of Symptoms: getting worse Context: drug abuse, history of similar presentation Associated Symptoms: weakness Treatments Prior to Arrival: oxygen - Related Data Home Medications Medication Instructions Recorded Confirmed Levothyroxine Sodium [Synthroid] 50 mcg PO DAILY 08/11/19 08/15/21 QUEtiapine FUMARATE [SEROquel] 800 mg PO HS 02/06/20 08/15/21 Oxybutynin Chloride [Ditropan XL] 10 mg PO DAILY 06/11/20 08/15/21 Ascorbic Acid [Vitamin C] 500 mg PO DAILY 08/15/21 08/15/21 Aspirin EC [Ecotrin Low Dose] 81 mg PO DAILY 08/15/21 08/15/21 Cholecalciferol [Vitamin D3 (125 125 mcg PO DAILY 08/15/21 08/15/21 Mcg = 5000 Iu)] Cyanocobalamin [Vitamin B-12] 500 mcg PO DAILY 08/15/21 08/15/21 Divalproex [Depakote] 250 mg PO BID 08/15/21 08/15/21 Docusate [Colace] 300 mg PO DAILY 08/15/21 08/15/21 FLUoxetine HCL 40 mg PO DAILY 08/15/21 08/15/21 traZODone HCL 300 mg PO HS 08/15/21 08/15/21 Previous Rx's Medication Instructions Recorded Cefdinir 300 mg PO Q12HR #12 cap 08/19/21 LORazepam [Ativan] 2 mg PO BID PRN #6 tab 08/20/21 Morphine Sulfate Ir [MSIR] 30 mg PO QID PRN #12 tab 08/20/21 Sulfamethox-Tmp 800-160Mg [Bactrim 1 each PO Q12HR #6 tab 09/01/21 Ds] Allergies Allergy/AdvReac Type Severity Reaction Status Date / Time latex Allergy Unknown Rash/Hives Verified 08/31/21 21:22 Review of Systems ROS Statement: Those systems with pertinent positive or pertinent negative responses have been documented in the HPI. ROS Other: All systems not noted in ROS Statement are negative. Past Medical History Past Medical History: COPD, CVA/TIA, Fibromyalgia, Hypertension, Seizure Disorder, Sleep Apnea/CPAP/BIPAP, Thyroid Disorder Additional Past Medical History / Comment(s): Chronic pain mostly in neck/low back, chronic aspirin user -was taking 4-8 tablets a day for about 40 years but had accidental aspirin overdose in August 2019-ended up going into kidney failure and having to have dialysis in ICU-[facility] and started having seizures and hypertensive emergency-sent to [facility] and diagnosed with PRES encephalopathy, pt states CVA 08/2019 with memory problems/word finding problems/slow speech and occasional slurred speech, eating disorder, iron anemia, bronchitis, sinus problems, IBS, UTI with sepsis, hypothyroid, migraines. History of Any Multi-Drug Resistant Organisms: MRSA, VRE Date of last positivie culture/infection: 08/29/21-VRE; 2004 MRSA 12/06/04 MDRO Source:: VRE-Urine; MRSA- Unknown Past Surgical History: Back Surgery, Tonsillectomy Additional Past Surgical History / Comment(s): Cervical and low back surgery Past Anesthesia/Blood Transfusion Reactions: No Reported Reaction Smoking Status: Never smoker - Past Family History Sister(s) Family Medical History: Cancer, Renal Disease Additional Family Medical History / Comment(s): breast cancer, kidney cancer Mother Family Medical History: Cancer, Hypertension Additional Family Medical History / Comment(s): breast Father Additional Family Medical History / Comment(s): Father of a cardiac arrest. General Exam General appearance: alert, in no apparent distress Head exam: Present: atraumatic, normocephalic, normal inspection Eye exam: Present: normal appearance, PERRL, EOMI. Absent: scleral icterus, conjunctival injection, periorbital swelling ENT exam: Present: normal exam, mucous membranes moist Neck exam: Present: normal inspection. Absent: tenderness, meningismus, lymphadenopathy Respiratory exam: Present: normal lung sounds bilaterally. Absent: respiratory distress, wheezes, rales, rhonchi, stridor Cardiovascular Exam: Present: regular rate, normal rhythm, normal heart sounds. Absent: systolic murmur, diastolic murmur, rubs, gallop, clicks GI/Abdominal exam: Present: soft, normal bowel sounds. Absent: distended, tenderness, guarding, rebound, rigid Extremities exam: Present: normal inspection, full ROM, normal capillary refill. Absent: tenderness, pedal edema, joint swelling, calf tenderness Back exam: Present: normal inspection Neurological exam: Present: alert, oriented X3, CN II-XII intact Psychiatric exam: Present: normal affect, normal mood Skin exam: Present: warm, dry, intact, normal color. Absent: rash Course Vital Signs 09/03/21 09/03/21 09/03/21 00:29 01:18 07:21 Temperature 98 F Pulse Rate 76 88 Respiratory 20 20 20 Rate Blood Pressure 95/50 129/57 O2 Sat by Pulse 97 93 L Oximetry - Reevaluation(s) Reevaluation #1: 09/03/21 01:54 Medical record is reviewed Reevaluation #2: 09/03/21 01:54 Patient informed of results and questions answered 09/03/21 01:54 Patient did respond to Narcan Reevaluation #3: 09/03/21 Patient remains awake and alert well here in the emergency department Medical Decision Making - Medical Decision Making 66 female to the emergency department for evaluation. Patient presents today for evaluation of unresponsive event likely accidental overdose. She remains awake alert after Narcan and some encouragement here in the ER patient safe for discharge - Lab Data Result diagrams: 09/03/21 02:06 09/03/21 02:06 Lab Results 09/03/21 09/03/21 09/03/21 Range/Units 02:06 02:06 02:06 WBC 8.5 (3.8-10.6) k/uL RBC 3.52 L (3.80-5.40) m/uL Hgb 10.2 L (11.4-16.0) gm/dL Hct 32.1 L (34.0-46.0) % MCV 91.3 (80.0-100.0) fL MCH 29.0 (25.0-35.0) pg MCHC 31.8 (31.0-37.0) g/dL RDW 17.6 H (11.5-15.5) % Plt Count 268 (150-450) k/uL MPV 8.2 Neutrophils % 64 % Lymphocytes % 24 % Monocytes % 6 % Eosinophils % 2 % Basophils % 0 % Neutrophils # 5.4 (1.3-7.7) k/uL Lymphocytes # 2.1 (1.0-4.8) k/uL Monocytes # 0.5 (0-1.0) k/uL Eosinophils # 0.1 (0-0.7) k/uL Basophils # 0.0 (0-0.2) k/uL Hypochromasia Marked Anisocytosis Slight Sodium 139 (137-145) mmol/L Potassium 3.4 L (3.5-5.1) mmol/L Chloride 109 H (98-107) mmol/L Carbon Dioxide 21 L (22-30) mmol/L Anion Gap 9 mmol/L BUN 9 (7-17) mg/dL Creatinine 0.86 (0.52-1.04) mg/dL Est GFR (CKD-EPI)AfAm 83 (>60 ml/min/1.73 sqM) Est GFR (CKD-EPI)NonAf 72 (>60 ml/min/1.73 sqM) Glucose 110 H (74-99) mg/dL Plasma Lactic Acid Slava 1.7 (0.7-2.0) mmol/L Calcium 9.2 (8.4-10.2) mg/dL Phosphorus 3.2 (2.5-4.5) mg/dL Magnesium 1.9 (1.6-2.3) mg/dL Total Bilirubin 0.4 (0.2-1.3) mg/dL AST 17 (14-36) U/L ALT 17 (4-34) U/L Alkaline Phosphatase 100 (38-126) U/L Ammonia <9 (<30) umol/L Troponin I (0.000-0.034) ng/mL Total Protein 6.3 (6.3-8.2) g/dL Albumin 3.4 L (3.5-5.0) g/dL Salicylates <1.0 mg/dL Acetaminophen <10.0 ug/mL 09/03/21 Range/Units 02:06 WBC (3.8-10.6) k/uL RBC (3.80-5.40) m/uL Hgb (11.4-16.0) gm/dL Hct (34.0-46.0) % MCV (80.0-100.0) fL MCH (25.0-35.0) pg MCHC (31.0-37.0) g/dL RDW (11.5-15.5) % Plt Count (150-450) k/uL MPV Neutrophils % % Lymphocytes % % Monocytes % % Eosinophils % % Basophils % % Neutrophils # (1.3-7.7) k/uL Lymphocytes # (1.0-4.8) k/uL Monocytes # (0-1.0) k/uL Eosinophils # (0-0.7) k/uL Basophils # (0-0.2) k/uL Hypochromasia Anisocytosis Sodium (137-145) mmol/L Potassium (3.5-5.1) mmol/L Chloride (98-107) mmol/L Carbon Dioxide (22-30) mmol/L Anion Gap mmol/L BUN (7-17) mg/dL Creatinine (0.52-1.04) mg/dL Est GFR (CKD-EPI)AfAm (>60 ml/min/1.73 sqM) Est GFR (CKD-EPI)NonAf (>60 ml/min/1.73 sqM) Glucose (74-99) mg/dL Plasma Lactic Acid Slava (0.7-2.0) mmol/L Calcium (8.4-10.2) mg/dL Phosphorus (2.5-4.5) mg/dL Magnesium (1.6-2.3) mg/dL Total Bilirubin (0.2-1.3) mg/dL AST (14-36) U/L ALT (4-34) U/L Alkaline Phosphatase (38-126) U/L Ammonia (<30) umol/L Troponin I <0.012 (0.000-0.034) ng/mL Total Protein (6.3-8.2) g/dL Albumin (3.5-5.0) g/dL Salicylates mg/dL Acetaminophen ug/mL Disposition Clinical Impression: Altered mental status, Drug overdose Disposition: HOME SELF-CARE Condition: Fair Instructions (If sedation given, give patient instructions): Altered Mental Status (ED) Is patient prescribed a controlled substance at d/c from ED?: No Referrals: Roman Oneil MD [Primary Care Provider] - 1-2 days Time of Disposition: 06:00
[2021-09-03 00:54] VITALS: RESP 20; TEMP 98
--- NOTE | 2021-09-03 01:56 | XR ---
EXAM: XR Chest, 1 View CLINICAL HISTORY: ITS.REASON XR Reason: sob TECHNIQUE: Frontal view of the chest. COMPARISON: 08/31/2021 FINDINGS: Lungs: Small opacities in the bilateral lower lobes. Pleural space: No acute findings Heart: Mild cardiomegaly. Bones/joints: No acute findings. IMPRESSION: Small opacities in the bilateral lower lobes.
[2021-09-03 03:28] LABS: Anisocytosis Slight; Basophils % (A) 0 %; Eosinophils # (A) 0.1 k/uL (0-0.7); Eosinophils % (A) 2 %; HCT 32.1 % (34.0-46.0); HGB 10.2 gm/dL (11.4-16.0); Hypochromasia Marked; Lymphocytes # (A) 2.1 k/uL (1.0-4.8); Lymphocytes % (A) 24 %; MCHC 31.8 g/dL (31.0-37.0); MCV 91.3 fL (80.0-100.0); Mean Platelet Volume 8.2; Monocytes # (A) 0.5 k/uL (0-1.0); Monocytes % (A) 6 %; Neutrophils # (A) 5.4 k/uL (1.3-7.7); Neutrophils % (A) 64 %; Platelet Count 268 k/uL (150-450); RBC 3.52 m/uL (3.80-5.40); RDW 17.6 % (11.5-15.5); WBC 8.5 k/uL (3.8-10.6)
[2021-09-03 03:32] LABS: Lactic Acid, Venous 1.7 mmol/L (0.7-2.0)
[2021-09-03 03:35] LABS: ALT 17 U/L (4-34); AST 17 U/L (14-36); Acetaminophen <10.0 ug/mL; African American GFR (CKD) 83 (>60 ml/min/1.73 sqM); Albumin 3.4 g/dL (3.5-5.0); Alkaline Phosphatase 100 U/L (38-126); Anion Gap 9 mmol/L; Blood Urea Nitrogen 9 mg/dL (7-17); Calcium 9.2 mg/dL (8.4-10.2); Carbon Dioxide 21 mmol/L (22-30); Chloride 109 mmol/L (98-107); Glucose 110 mg/dL (74-99); Magnesium 1.9 mg/dL (1.6-2.3); Non-African American GFR(CKD) 72 (>60 ml/min/1.73 sqM); Phosphorus 3.2 mg/dL (2.5-4.5); Potassium 3.4 mmol/L (3.5-5.1); Salicylate <1.0 mg/dL; Sodium 139 mmol/L (137-145); Total Bilirubin 0.4 mg/dL (0.2-1.3); Total Protein 6.3 g/dL (6.3-8.2)
[2021-09-03 07:22] VITALS: BP 129/57; PULSE 88
== END 2021-09-03 08:18 | disposition home or self-care (01) ==
LOC: EC 00:13
DX: T50.901A Poisoning by unspecified drugs, medicaments and biological substances, accidental (unintentional), initial encounter (principal); R41.82 Altered mental status, unspecified; I10 Essential (primary) hypertension; J44.9 Chronic obstructive pulmonary disease, unspecified; Z86.73 Personal history of transient ischemic attack (TIA), and cerebral infarction without residual deficits; Z91.040 Latex allergy status; Z79.899 Other long term (current) drug therapy
CPT/HCPCS: 99285; 96372 ×2; 36415; 80053; 82140; 83605; 83735; 84100; 84484; 85025; 80143; 80179; 71045; J2310

== ENCOUNTER → 2021-10-08 | Outpatient (CLI) | payer MEDICARE ==
[2021-10-08 12:59] VITALS: BP 97/66; PULSE 103; RESP 18
[2021-10-08 13:03] VITALS: TEMP 98.1
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
== END ==
LOC: PNWHC3 12:07
PROVIDERS: ATTEND Specialist
DX: M51.36 Other intervertebral disc degeneration, lumbar region (principal); J44.9 Chronic obstructive pulmonary disease, unspecified; I10 Essential (primary) hypertension; E03.9 Hypothyroidism, unspecified; Z86.73 Personal history of transient ischemic attack (TIA), and cerebral infarction without residual deficits; F32.9 Major depressive disorder, single episode, unspecified; F41.9 Anxiety disorder, unspecified; F43.10 Post-traumatic stress disorder, unspecified; Z87.891 Personal history of nicotine dependence; Z91.040 Latex allergy status; Z79.890 Hormone replacement therapy
CPT/HCPCS: 99211

== ENCOUNTER → 2021-10-23 | Outpatient (CLI) | payer MEDICARE ==
[2021-10-23 13:48] VITALS: BP 93/62; PULSE 76; RESP 18; TEMP 98
--- NOTE | 2021-10-23 15:19 | P.PAINPG ---
PQRS Measure Charge Sheet Comment: A 66 yr old female with a history of severe and chronic low back pain secondary to lumbar degenerative disc diseases and lumbar spondylosis with facet arthropathy presents today for a reevaluation of LBP. Pain level is 8/10 in intensity, constant, throbbing/ achy in character, localized in the lower of her lumbar spine w radiation of sharp pain towards the BLEs. Pain is dull/ achy/ sharp/ shooting towards . Pain is provoked by walking/ standing for periods of 20 min or more. Pain is alleviated with PT currently in for the last week, medications (MS IR), laying supine, repositioning and rest. Interventional pain procedures completed include LESIs Patient is currently on Morphine Sulfate 30mg BID Patient denies any side effects of the medication(s), denies excessive drowsiness or sleepiness, denies suicidal ideation and reports that the current pain medication is helping to control the pain and improve activities of daily living. Patient denies any motor or sensory deficits. Patient denies any fever or night sweats, denies any change in the bowel movements or urination. Physical Examination: -Constitutional: Cooperative. Not in acute distress . - Neurologic: Cranial nerve II to XII intact. No focal neurological deficits. - Psychatric: Alert & oriented x 3. Matching mood & appropriate affect. Judgment and insight intact. - Musculoskeletal: Cervical spine: Muscle bulk/ tone/ strength in the bilateral upper extremities normal Vertebral body tenderness to palpation over Spurling test positive Distraction test positive Facet loading test positive Thoracic spine Muscle bulk / tone/ strength in the bilateral paraspinal muscles normal Vertebral body tender to palpation over Facet loading test positive Lumbar spine: Motor bulk/ tone/ strength lower extremities , thigh and legs : 5/5 Deep tendon reflexes : Normal Knee Jerk. Normal Ankle Jerk . Vertebral body tenderness to palpation over L4 Lumbar Facet Loading Test positive Straight Leg Raise: positive at 30 degrees right side/ left side Gaenslen's Test positive Sacral spine : Severe tenderness over the Sacroiliac joint: right side / left side Range of motion: Flexion of the lumbar spine <60 degrees Range of motion: Extension of the lumbar spine <20 degrees Gaenslen's Test positive Nikhil's Test positive Darline test: positive right side / left side Thigh Thrust Test Sacral Thrust Test Imaging: MRI without contrast of the Lumbar spine from 02/19/21 reviewed Assessment and plan: Chronic low back pain secondary to lumbar degenerative disc disease , lumbar spondylosis with facet arthropathy without myelopathy Recommendation of LESI L4-L5. May need a series of injections, up to 3 within a 6 mo period, for optimal pain relief. Risks, benefits of procedure discussed and pt verbalized understanding. Denies anticoagulant use or medical history of diabetes. Chronic and current use of high-risk medication (Opioids). The patient was counseled about risk of opioid use, psychological risk associated with opioids and was orally counseled to not overuse , divert or sell medications. Pt is to store medication in a safe location. The patient is counseled against driving while using narcotic medications and also not to use alcohol or any illicit recreational drugs. Patient verbalized understanding that the lack of compliance will result in failure to renew narcotic prescription(s) as well as possible discharge from the clinic Diagnoses, prognosis and treatment options including but not limited to physical therapy, surgical interventions, interventional therapies and medication management including narcotics and adjuvant medication were discussed. All patient questions answered MAPS reviewed and it was appropriate. Opiate agreement signed today 10/23/21 Prescription refill for MS IR 30mg #60 w 1 refill I have spent less than 30 minutes on patient care today. Dr Orona was available by phone for the evaluation of this patient. The time was used to review the medical records including relevant urine studies and Prescription history (MAPs), review of the available imaging, evaluation and examination of the patient, coordination of care with the medical staff and if applicable referring physicians, as well as creation of the medical record - Pain Location Bilateral Lower Back Non-Pharmacological Interventions: Physical Therapy, Position/Reposition Pharmacological Interventions: Scheduled Medication PQRS Narrative: Smoking Status Current every day smoker Hx Alcohol Use (MH) No Home Medications: Ambulatory Orders Levothyroxine Sodium [Synthroid] 50 mcg PO DAILY 08/11/19 QUEtiapine FUMARATE [SEROquel] 800 mg PO HS 02/06/20 Oxybutynin Chloride [Ditropan XL] 10 mg PO DAILY 06/11/20 Ascorbic Acid [Vitamin C] 500 mg PO DAILY 08/15/21 Aspirin EC [Ecotrin Low Dose] 81 mg PO DAILY 08/15/21 Cholecalciferol [Vitamin D3 (125 Mcg = 5000 Iu)] 125 mcg PO DAILY 08/15/21 Cyanocobalamin [Vitamin B-12] 500 mcg PO DAILY 08/15/21 Divalproex [Depakote] 250 mg PO BID 08/15/21 Docusate [Colace] 300 mg PO DAILY 08/15/21 FLUoxetine HCL 40 mg PO DAILY 08/15/21 traZODone HCL 300 mg PO HS 08/15/21 Cefdinir 300 mg PO Q12HR #12 cap 08/19/21 LORazepam [Ativan] 2 mg PO BID PRN #6 tab 08/20/21 Sulfamethox-Tmp 800-160Mg [Bactrim Ds] 1 each PO Q12HR #6 tab 09/01/21 Morphine Sulfate Ir [MSIR] 30 mg PO BID 7 Days #14 tab 10/08/21 Controlled Substance Measures - Controlled Substance Measures Is patient prescribed a controlled substance at discharge?: Yes When asked, does pt state using other controlled substances?: No If prescribed controlled substance>3 days was MAPS reviewed?: Yes If Rx opioid, was Start Talking consent form obtained?: Yes Was information provided regarding opioid addiction?: Yes
== END ==
LOC: PNWHC3 13:07
PROVIDERS: ATTEND Specialist
DX: M51.36 Other intervertebral disc degeneration, lumbar region (principal); M47.816 Spondylosis without myelopathy or radiculopathy, lumbar region; G89.29 Other chronic pain; Z79.891 Long term (current) use of opiate analgesic; Z91.040 Latex allergy status
CPT/HCPCS: 99211

== ENCOUNTER → 2022-01-15 | Outpatient (CLI) | payer MEDICARE ==
--- NOTE | 2022-01-16 09:22 | FL ---
EXAMINATION TYPE: FL barium swallow DATE OF EXAM: 01/15/2022 COMPARISON: None HISTORY: Dysphasia and vomiting choking weight loss 30 pounds TECHNIQUE: Double air contrast technique is utilized to evaluate the esophagus FINDINGS: Fluoroscopy time: 33 seconds. Images: 148. Esophagus dilates to normal caliber and has normal contour of the gastroesophageal junction. Gastroes ophageal junction opens to normal caliber. Secondary contraction is observed during the examination. No focal stenosis within the proximal esophagus is evident. Note is made of some mild posterior lashawn h impression on the esophagus at the level of the prior anterior cervical fusion. Marked delay of contrast passing from the esophagus into the stomach in the upright position. Contras t does eventually empty without a focal stenosis at the gastroesophageal junction. Persistent spasm w as not identified. IMPRESSION: 1. Presbyesophagus. This may be contributing to slow passage of contrast through the esophagus even in the upright position. No focal stenosis or spasm identified.
== END ==
LOC: RADUSWWP 10:27
PROVIDERS: ATTEND Otolaryngology
DX: R13.10 Dysphagia, unspecified (principal)
CPT/HCPCS: 74220

== ENCOUNTER → 2022-02-11 | Outpatient (CLI) | payer MEDICARE ==
[2022-02-11 12:24] VITALS: BP 100/61; PULSE 96; RESP 18; TEMP 98
--- NOTE | 2022-02-11 14:25 | P.PAINPG ---
PQRS Measure Charge Sheet Comment: A 67 yr old female with a history of severe and chronic low back pain secondary to lumbar DDD and spondylosis with facet arthropathy without myelopathy presents today for evaluation s/p RONAK L4-L5 and medication refills. Pain level is currently at 8 /10 in intensity, constant, localized in the lower lumbar spine, dull/ achy/ sharp/ shooting towards the BLES. Pain is provoked by "anything." Pain is alleviated with medications. Pt has not scheduled RONAK L4-L5 as she told the animal care technician she "doesn't want the injection." Pt also stated she "needs" the refill and now "wants" the injection, however she will be out of state for 2 months to see her mother as she broke her neck. Pt has cancelled 2+ appointments at this facility. She notified the animal care technician also that she doesn't want to be established at our clinic, to end the narcotic agreement at our clinic as she wants to continue care at Dr Bailey's office, but today she stated that she "doesn't like the PA there." I reiterated that she violated the narcotic agreement since she is not cooperating w recommended treatment and is seeing additional physicians for MS IR. Pt acknowledged understanding. Interventional pain procedures completed include Jermain Patient is currently on MS IR 30mg #60 Patient denies any side effects of the medication(s), denies excessive drowsiness or sleepiness, denies suicidal ideation and reports that the current pain medication is helping to control the pain and improve activities of daily living. Patient denies any motor or sensory deficits. Patient denies any fever or night sweats, denies any change in the bowel movements or urination. Physical Examination: -Constitutional: Cooperative. Not in acute distress . - Neurologic: Cranial nerve II to XII intact. No focal neurological deficits. - Psychatric: Alert & oriented x 3. Matching mood & appropriate affect. Judgment and insight intact. - Musculoskeletal: Cervical spine: Muscle bulk/ tone/ strength in the bilateral upper extremities normal Vertebral body tenderness to palpation over Spurling test positive Distraction test positive Facet loading test positive Thoracic spine Muscle bulk / tone/ strength in the bilateral paraspinal muscles normal Vertebral body tender to palpation over Facet loading test positive Lumbar spine: Motor bulk/ tone/ strength lower extremities , thigh and legs : 5/5 Deep tendon reflexes : Normal Knee Jerk. Normal Ankle Jerk . Vertebral body tenderness to palpation over L4 Lumbar Facet Loading Test positive Straight Leg Raise: positive at 30 degrees right side/ left side Gaenslen's Test positive Sacral spine : Severe tenderness over the Sacroiliac joint: right side / left side Range of motion: Flexion of the lumbar spine <60 degrees Range of motion: Extension of the lumbar spine <20 degrees Gaenslen's Test positive Darline test: positive right side / left side Thigh Thrust Test Sacral Thrust Test Assessment and plan: Chronic low back pain secondary to lumbar degenerative disc disease, spondylosis with facet arthropathy without myelopathy Chronic and current use of high-risk medication (Opioids). The patient was counseled about risk of opioid use, psychological risk associated with opioids and was orally counseled to not overuse , divert or sell medications. Pt is to store medication in a safe location. The patient is counseled against driving while using narcotic medications and also not to use alcohol or any illicit recreational drugs. Patient verbalized understanding that the lack of compliance will result in failure to renew narcotic prescription(s) as well as possible discharge from the clinic Diagnoses, prognosis and treatment options including but not limited to physical therapy, surgical interventions, interventional therapies and medication management including narcotics and adjuvant medication were discussed. All patient questions answered MAPS reviewed and it was appropriate. Prescription refill for MS IR 30mg #60 NR. Urine for UDS collected today 02/11/22. Discharged pt for multiple violations. I have spent less than 30 minutes on patient care today. Dr Orona was available by phone for the evaluation of this patient. The time was used to review the medical records including relevant urine studies and Prescription history (MAPs), review of the available imaging, evaluation and examination of the patient, coordination of care with the medical staff and if applicable referring physicians, as well as creation of the medical record PQRS Narrative: Smoking Status Current every day smoker Hx Alcohol Use (MH) No Home Medications: Ambulatory Orders Levothyroxine Sodium [Synthroid] 50 mcg PO DAILY 08/11/19 QUEtiapine FUMARATE [SEROquel] 800 mg PO HS 02/06/20 Oxybutynin Chloride [Ditropan XL] 10 mg PO DAILY 06/11/20 Ascorbic Acid [Vitamin C] 500 mg PO DAILY 08/15/21 Aspirin EC [Ecotrin Low Dose] 81 mg PO DAILY 08/15/21 Cholecalciferol [Vitamin D3 (125 Mcg = 5000 Iu)] 125 mcg PO DAILY 08/15/21 Cyanocobalamin [Vitamin B-12] 500 mcg PO DAILY 08/15/21 Divalproex [Depakote] 250 mg PO BID 08/15/21 Docusate [Colace] 300 mg PO DAILY 08/15/21 FLUoxetine HCL 40 mg PO DAILY 08/15/21 traZODone HCL 300 mg PO HS 08/15/21 Cefdinir 300 mg PO Q12HR #12 cap 08/19/21 LORazepam [Ativan] 2 mg PO BID PRN #6 tab 08/20/21 Sulfamethox-Tmp 800-160Mg [Bactrim Ds] 1 each PO Q12HR #6 tab 09/01/21 Morphine Sulfate Ir [MSIR] 30 mg PO BID PRN 30 Days #60 tab 10/23/21 Morphine Sulfate Ir [MSIR] 30 mg PO BID PRN 30 Days #60 tab 02/11/22 Controlled Substance Measures - Controlled Substance Measures Is patient prescribed a controlled substance at discharge?: Yes When asked, does pt state using other controlled substances?: Yes If prescribed controlled substance>3 days was MAPS reviewed?: No If Rx opioid, was Start Talking consent form obtained?: Yes Was information provided regarding opioid addiction?: Yes
== END ==
LOC: PNWHC3 11:04
PROVIDERS: ATTEND Specialist
DX: M47.816 Spondylosis without myelopathy or radiculopathy, lumbar region (principal); M51.36 Other intervertebral disc degeneration, lumbar region; G89.29 Other chronic pain; Z79.891 Long term (current) use of opiate analgesic; Z91.040 Latex allergy status; F17.200 Nicotine dependence, unspecified, uncomplicated
CPT/HCPCS: 80307; G0482; G0463; 99211

== ENCOUNTER 2022-03-11 16:26 | Emergency (ER) | payer MEDICARE ==
[2022-03-11 16:34] VITALS: RESP 16
[2022-03-11 17:11] LABS: Partial Thromboplastin Time 29.5 sec (22.0-30.0); Prothrombin Time 10.4 sec (9.0-12.0)
[2022-03-11 17:12] LABS: ALT 16 U/L (4-34); AST 25 U/L (14-36); African American GFR (CKD) >90 (>60 ml/min/1.73 sqM); Albumin 3.8 g/dL (3.5-5.0); Alcohol <10 mg/dL; Alkaline Phosphatase 82 U/L (38-126); Anion Gap 8 mmol/L; Blood Urea Nitrogen 15 mg/dL (7-17); Calcium 8.8 mg/dL (8.4-10.2); Carbon Dioxide 22 mmol/L (22-30); Chloride 103 mmol/L (98-107); Glucose 104 mg/dL (74-99); Non-African American GFR(CKD) 87 (>60 ml/min/1.73 sqM); Potassium 4.4 mmol/L (3.5-5.1); Sodium 133 mmol/L (137-145); Total Bilirubin 0.4 mg/dL (0.2-1.3); Total Protein 6.6 g/dL (6.3-8.2)
[2022-03-11 17:37] LABS: Basophils # (A) 0.1 k/uL (0-0.2); Basophils % (A) 1 %; Eosinophils % (A) 1 %; HCT 35.5 % (34.0-46.0); HGB 11.4 gm/dL (11.4-16.0); Hypochromasia Slight; Lymphocytes # (A) 0.8 k/uL (1.0-4.8); Lymphocytes % (A) 13 %; MCH 29.6 pg (25.0-35.0); MCV 92.6 fL (80.0-100.0); Mean Platelet Volume 9.3; Monocytes # (A) 0.7 k/uL (0-1.0); Monocytes % (A) 11 %; Neutrophils # (A) 4.4 k/uL (1.3-7.7); Neutrophils % (A) 72 %; Platelet Count 143 k/uL (150-450); RBC 3.84 m/uL (3.80-5.40); RDW 14.8 % (11.5-15.5); WBC 6.1 k/uL (3.8-10.6)
--- NOTE | 2022-03-11 17:46 | XR ---
EXAMINATION TYPE: XR chest 2V DATE OF EXAM: 03/11/2022 COMPARISON: NONE HISTORY: Short of breath TECHNIQUE: Single view FINDINGS: There is slight blunting left cost phrenic angle. Heart size is normal. No heart failure. B jacqueline thorax is intact. IMPRESSION: There is some mild infiltrate or atelectasis left lung base which is increased compared t o old exam. There is clearing of the atelectasis right lung base compared to old exam. Normal heart.
--- NOTE | 2022-03-11 17:50 | XR ---
EXAMINATION TYPE: XR ankle complete RT DATE OF EXAM: 03/11/2022 COMPARISON: NONE HISTORY: Ankle pain TECHNIQUE: 3 views FINDINGS: Ankle mortise is anatomic. I see no fracture nor dislocation. The joint spaces are normal. No fracture seen. There is small plantar calcaneal spur. IMPRESSION: No acute abdominal value of the right ankle. No fracture.
--- NOTE | 2022-03-11 17:51 | XR ---
EXAMINATION TYPE: XR tibia fibula RT DATE OF EXAM: 03/11/2022 COMPARISON: NONE HISTORY: Leg pain TECHNIQUE: 2 views FINDINGS: The tibia and fibula appear intact. No fracture nor dislocation. Ankle mortise is anatomic. Knee joint appears intact. IMPRESSION: Negative right tibia and fibula exam.
--- NOTE | 2022-03-11 17:54 | XR ---
EXAMINATION TYPE: XR foot complete RT DATE OF EXAM: 03/11/2022 COMPARISON: NONE HISTORY: Pain TECHNIQUE: 3 views FINDINGS: The metatarsals are intact. The toes appear intact. I see no fracture nor dislocation. Ther e is soft tissue swelling of the forefoot. There is plantar calcaneal spurring. The hindfoot is intac t. IMPRESSION: Soft tissue swelling. No fracture seen.
--- NOTE | 2022-03-11 17:59 | CT ---
EXAMINATION TYPE: CT brain peteyine wo con DATE OF EXAM: 03/11/2022 COMPARISON: 03/28/2020 HISTORY: PAIN AFTER FALLS. AMS CT DLP: 1400.3 mGycm Automated exposure control for dose reduction was used. Ventricles have fairly normal size. There is no mass effect or midline shift. No sign of intracranial hemorrhage. There is hypodensity in the cortex of both occipital lobes. There is hyperostosis fronta lis. There is some straightening of the cervical spine. There is previous anterior fusion surgery at C5-6. Posterior element are intact. Facet joints are intact. No compression fracture. There is degenerativ e spur formation of the endplates at C6-7. There is mild spurring of the endplates also C3-4 and C4-5 . IMPRESSION: There is evidence of some occipital lobe encephalomalacia at the occipital convexities which is not c hanged compared to old exam. No acute intracranial abnormality. Spondylosis in the mid and lower cervical spine with previous surgery. No significant change compared to old exam.
[2022-03-11 19:18] LABS: Amphetamine Screen,Urine Not Detected (NotDetected); Barbiturate Screen,Urine Not Detected (NotDetected); Benzodiazepines Screen,Urine Detected (NotDetected); Cocaine Screen,Urine Not Detected (NotDetected); Methadone Screen, Urine Not Detected (NotDetected); Opiate Screen,Urine Detected (NotDetected); Oxycodone Screen, Urine Not Detected (NotDetected); Phencyclidine Screen,Urine Not Detected (NotDetected); Tricyclic Antidepressant,Urine Detected (NotDetected); Urn Cannabinoid Scrn Not Detected (NotDetected)
--- NOTE | 2022-03-11 19:59 | US ---
EXAMINATION TYPE: US venous doppler duplex LE RT DATE OF EXAM: 03/11/2022 6:43 PM COMPARISON: NONE CLINICAL HISTORY: Swelling, r/o DVT. Swelling of right lower leg after pt had a fall. SIDE PERFORMED: Right TECHNIQUE: The lower extremity deep venous system is examined utilizing real time linear array sonog dorothea with graded compression, doppler sonography and color-flow sonography. VESSELS IMAGED: Common Femoral Vein Deep Femoral Vein Greater Saphenous Vein * Femoral Vein Popliteal Vein Small Saphenous Vein * Proximal Calf Veins (* superficial vessels) Right Leg: Negative for DVT Grayscale, color doppler, spectral doppler imaging performed of the deep veins of the right lower ext remity. There is normal flow, compressibility, vascular waveforms. IMPRESSION: No ultrasound evidence for acute DVT in the right lower extremity.
[2022-03-11 21:10] LABS: Appearance,Urine Clear (Clear); Bilirubin,Urine Negative (Negative); Blood,Urine Negative (Negative); Color,Urine Colorless; Glucose,Urine (UA) Negative (Negative); Ketones,Urine Negative (Negative); Leukocyte Esterase,Urine Trace (Negative); Nitrite,Urine Negative (Negative); Protein,Urine Negative (Negative); RBC,Urine 1 /hpf (0-5); Specific Gravity,Urine 1.006 (1.001-1.035); Squamous Epithelial Cell,Urine <1 /hpf (0-4); Urobilinogen,Urine <2.0 mg/dL (<2.0); WBC,Urine 5 /hpf (0-5)
--- NOTE | 2022-03-11 22:37 | ED ---
General Adult HPI - General Chief complaint: Altered Mental Status Stated complaint: weakness, lethargic Time Seen by Provider: 03/11/22 16:37 Source: EMS Mode of arrival: EMS Limitations: altered mental status - History of Present Illness Initial comments: This is a 67-year-old female who presents emergency department via EMS after a fall. The patient reportedly had a fall today multiple times and had some pain in the right lower extremity. The patient stated that she did not hit her head and did not lose consciousness. The patient altered however the patient was ANO 4 with me. The patient denied any other acute pain or complaints at this time. The patient was resting in bed not complaining of any pain and was able to move all extremities without any distress. - Related Data Home Medications Medication Instructions Recorded Confirmed Levothyroxine Sodium [Synthroid] 50 mcg PO DAILY 08/11/19 02/11/22 QUEtiapine FUMARATE [SEROquel] 800 mg PO HS 02/06/20 02/11/22 Oxybutynin Chloride [Ditropan XL] 10 mg PO DAILY 06/11/20 02/11/22 Ascorbic Acid [Vitamin C] 500 mg PO DAILY 08/15/21 02/11/22 Aspirin EC [Ecotrin Low Dose] 81 mg PO DAILY 08/15/21 02/11/22 Cholecalciferol [Vitamin D3 (125 125 mcg PO DAILY 08/15/21 02/11/22 Mcg = 5000 Iu)] Cyanocobalamin [Vitamin B-12] 500 mcg PO DAILY 08/15/21 02/11/22 Divalproex [Depakote] 250 mg PO BID 08/15/21 02/11/22 Docusate [Colace] 300 mg PO DAILY 08/15/21 02/11/22 FLUoxetine HCL 40 mg PO DAILY 08/15/21 02/11/22 traZODone HCL 300 mg PO HS 08/15/21 02/11/22 Previous Rx's Medication Instructions Recorded Cefdinir 300 mg PO Q12HR #12 cap 08/19/21 LORazepam [Ativan] 2 mg PO BID PRN #6 tab 08/20/21 Sulfamethox-Tmp 800-160Mg [Bactrim 1 each PO Q12HR #6 tab 09/01/21 Ds] Morphine Sulfate Ir [MSIR] 30 mg PO BID PRN 30 Days #60 tab 10/23/21 Morphine Sulfate Ir [MSIR] 30 mg PO BID PRN 30 Days #60 tab 02/11/22 Allergies Allergy/AdvReac Type Severity Reaction Status Date / Time latex Allergy Unknown Rash/Hives Verified 03/11/22 19:30 Review of Systems ROS Statement: Those systems with pertinent positive or pertinent negative responses have been documented in the HPI. ROS Other: All systems not noted in ROS Statement are negative. Past Medical History Past Medical History: COPD, CVA/TIA, Fibromyalgia, Hypertension, Seizure Disorder, Sleep Apnea/CPAP/BIPAP, Thyroid Disorder Additional Past Medical History / Comment(s): Chronic pain mostly in neck/low back, chronic aspirin user -was taking 4-8 tablets a day for about 40 years but had accidental aspirin overdose in August 2019-ended up going into kidney failure and having to have dialysis in ICU-[facility] and started having seizures and hypertensive emergency-sent to [facility] and diagnosed with PRES encephalopathy, pt states CVA 08/2019 with memory problems/word finding problems/slow speech and occasional slurred speech, eating disorder, iron anemia, bronchitis, sinus problems, IBS, UTI with sepsis, hypothyroid, migraines. History of Any Multi-Drug Resistant Organisms: MRSA, VRE Date of last positivie culture/infection: 08/29/21-VRE; 2004 MRSA 12/06/04 MDRO Source:: VRE-Urine; MRSA- Unknown Past Surgical History: Back Surgery, Tonsillectomy Additional Past Surgical History / Comment(s): Cervical and low back surgery Past Anesthesia/Blood Transfusion Reactions: No Reported Reaction Smoking Status: Never smoker - Past Family History Sister(s) Family Medical History: Cancer, Renal Disease Additional Family Medical History / Comment(s): breast cancer, kidney cancer Mother Family Medical History: Cancer, Hypertension Additional Family Medical History / Comment(s): breast Father Additional Family Medical History / Comment(s): Father of a cardiac arrest. General Exam Limitations: no limitations General appearance: alert, in no apparent distress Head exam: Present: atraumatic, normocephalic, normal inspection Eye exam: Present: normal appearance, PERRL Pupils: Present: normal accommodation ENT exam: Present: normal exam, normal oropharynx, mucous membranes moist Neck exam: Present: normal inspection, full ROM Respiratory exam: Present: normal lung sounds bilaterally Cardiovascular Exam: Present: regular rate, normal rhythm, normal heart sounds GI/Abdominal exam: Present: soft, normal bowel sounds Extremities exam: Present: normal inspection, full ROM, normal capillary refill Back exam: Present: normal inspection, full ROM Neurological exam: Present: alert, oriented X3, CN II-XII intact Psychiatric exam: Present: normal affect, normal mood Skin exam: Present: warm, dry Course Vital Signs 03/11/22 03/11/22 03/11/22 16:30 16:49 16:50 Temperature 99.2 F Pulse Rate 83 Respiratory 16 Rate Blood Pressure 124/59 O2 Sat by Pulse 94 L 86 L 96 Oximetry 03/11/22 19:26 Temperature Pulse Rate 82 Respiratory 16 Rate Blood Pressure 124/59 O2 Sat by Pulse 99 Oximetry EKG Findings - EKG Comments: EKG Findings:: An EKG was obtained and was interpreted by myself. EKG showed a rate of 82, P arrival 158, QR sabianist 103 and QTC of 430. This EKG was no sinus rhythm with no ST segment elevation or depressions noted. Medical Decision Making - Medical Decision Making Was pt. sent in by a medical professional or institution (, PA, SHIP'S MASTER, urgent care, hospital, or skilled nursing...) When possible be specific @ -No Did you speak to anyone other than the patient for history (EMS, parent, family, police, friend...)? What history was obtained from this source @ -No Did you review nursing and triage notes (agree or disagree)? Why? @ -I reviewed and agree with nursing and triage notes Were old charts reviewed (outside hosp., previous admission, EMS record, old EKG, old radiological studies, urgent care reports/EKG's, skilled nursing records)? Report findings @ -No old charts were reviewed Differential Diagnosis (chest pain, altered mental status, abdominal pain women, abdominal pain men, vaginal bleeding, weakness, fever, dyspnea, syncope, headache, dizziness, GI bleed, back pain, seizure, CVA, palpatations, mental health)? @ -Drug ingestion, UTI, electrolyte abnormality EKG interpreted by me (3pts min.). @ -As above X-rays interpreted by me (1pt min.). @ -X-ray of the foot, tibia, fibula, ankle and chest were all obtained and were interpreted by the radiologist as I could not see the images due to technical issues. All images were negative. CT interpreted by me (1pt min.). @ -CT head and CT C-spine were obtained and were interpreted by the radiologist as I could not see the images due to technical issues. CT head and CT spine were negative. U/S interpreted by me (1pt. min.). @ -An ultrasound duplex of the lower extremity was obtained and was interpreted by the radiologist and was negative. What testing was considered but not performed or refused? (CT, X-rays, U/S, labs)? Why? @ -None What meds were considered but not given or refused? Why? @ -None Did you discuss the management of the patient with other professionals (professionals i.e. , PA, SHIP'S MA[employer], lab, RT, psych nurse, manager social, alteration worker, teacher, youth officer, hospice case manager)? Give summary @ -No Was smoking cessation discussed for >3mins.? @ -Yes Was critical care preformed (if so, how long)? @ -No Were there social determinants of health that impacted care today? How? (Homelessness, low income, unemployed, alcoholism, drug addiction, transportation, low edu. Level, literacy, decrease access to med. care, halfway, rehab)? @ -No Was there de-escalation of care discussed even if they declined (Discuss DNR or withdrawal of care, Hospice)? DNR status @ -No What co-morbidities impacted this encounter? (DM, HTN, Smoking, COPD, CAD, Cancer, CVA, ARF, Chemo, Hep., AIDS, mental health diagnosis, sleep apnea, morbid obesity)? @ -Hypertension Was patient admitted / discharged? Hospital course, mention meds given and route, prescriptions, significant lab abnormalities, going to OR and other pertinent info. @ -The patient seen and evaluated emergency department. Physical exam, the patient was resting in bed without any acute distress. The patient was ANO 4. All imaging was negative. The patient had a fall with soft tissue contusion and was therefore stable for discharge back home. The patient denied of any abnormalities noted. The patient was told this plan and was agreeable. The patient was discharged home in stable condition. Undiagnosed new problem with uncertain prognosis? @ -No Drug Therapy requiring intensive monitoring for toxicity (Heparin, Nitro, Insulin, Cardizem)? @ -No Were any procedures done? @ -No Diagnosis/symptom? @ -Fall, soft tissue contusion Acute, or Chronic, or Acute on Chronic? @ -Acute Uncomplicated (without systemic symptoms) or Complicated (systemic symptoms)? @ -Uncomplicated Side effects of treatment? @ -No Exacerbation, Progression, or Severe Exacerbation? @ -No Poses a threat to life or bodily function? How? (Chest pain, [place], [place], pneumonia, PE, COPD, DKA, ARF, appy, cholecystitis, CVA, Diverticulitis, Homicidal, Suicidal, threat to staff... and all critical care pts) @ -No - Lab Data Result diagrams: 03/11/22 16:48 03/11/22 16:48 Lab Results 03/11/22 03/11/22 03/11/22 Range/Units 16:48 16:48 16:48 WBC 6.1 (3.8-10.6) k/uL RBC 3.84 (3.80-5.40) m/uL Hgb 11.4 (11.4-16.0) gm/dL Hct 35.5 (34.0-46.0) % MCV 92.6 (80.0-100.0) fL MCH 29.6 (25.0-35.0) pg MCHC 32.0 (31.0-37.0) g/dL RDW 14.8 (11.5-15.5) % Plt Count 143 L (150-450) k/uL MPV 9.3 Neutrophils % 72 % Lymphocytes % 13 % Monocytes % 11 % Eosinophils % 1 % Basophils % 1 % Neutrophils # 4.4 (1.3-7.7) k/uL Lymphocytes # 0.8 L (1.0-4.8) k/uL Monocytes # 0.7 (0-1.0) k/uL Eosinophils # 0.0 (0-0.7) k/uL Basophils # 0.1 (0-0.2) k/uL Hypochromasia Slight PT 10.4 (9.0-12.0) sec INR 1.0 (<1.2) APTT 29.5 (22.0-30.0) sec Sodium 133 L (137-145) mmol/L Potassium 4.4 (3.5-5.1) mmol/L Chloride 103 (98-107) mmol/L Carbon Dioxide 22 (22-30) mmol/L Anion Gap 8 mmol/L BUN 15 (7-17) mg/dL Creatinine 0.73 (0.52-1.04) mg/dL Est GFR (CKD-EPI)AfAm >90 (>60 ml/min/1.73 sqM) Est GFR (CKD-EPI)NonAf 87 (>60 ml/min/1.73 sqM) Glucose 104 H (74-99) mg/dL Calcium 8.8 (8.4-10.2) mg/dL Total Bilirubin 0.4 (0.2-1.3) mg/dL AST 25 (14-36) U/L ALT 16 (4-34) U/L Alkaline Phosphatase 82 (38-126) U/L Ammonia (<30) umol/L Troponin I (0.000-0.034) ng/mL Total Protein 6.6 (6.3-8.2) g/dL Albumin 3.8 (3.5-5.0) g/dL Urine Color Urine Appearance (Clear) Urine pH (5.0-8.0) Ur Specific [place] (1.001-1.035) Urine Protein (Negative) Urine Glucose (UA) (Negative) Urine Ketones (Negative) Urine Blood (Negative) Urine Nitrite (Negative) Urine Bilirubin (Negative) Urine Urobilinogen (<2.0) mg/dL Ur Leukocyte Esterase (Negative) Urine RBC (0-5) /hpf Urine WBC (0-5) /hpf Ur Squamous Epith Cells (0-4) /hpf Urine Opiates Screen (NotDetected) Ur Oxycodone Screen (NotDetected) Urine Methadone Screen (NotDetected) Ur Propoxyphene Screen (NotDetected) Ur Barbiturates Screen (NotDetected) U Tricyclic Antidepress (NotDetected) Ur Phencyclidine Scrn (NotDetected) Ur Amphetamines Screen (NotDetected) U Methamphetamines Scrn (NotDetected) U Benzodiazepines Scrn (NotDetected) Urine Cocaine Screen (NotDetected) U Marijuana (THC) Screen (NotDetected) Serum Alcohol <10 mg/dL 03/11/22 03/11/22 03/11/22 Range/Units 16:48 16:48 18:26 WBC (3.8-10.6) k/uL RBC (3.80-5.40) m/uL Hgb (11.4-16.0) gm/dL Hct (34.0-46.0) % MCV (80.0-100.0) fL MCH (25.0-35.0) pg MCHC (31.0-37.0) g/dL RDW (11.5-15.5) % Plt Count (150-450) k/uL MPV Neutrophils % % Lymphocytes % % Monocytes % % Eosinophils % % Basophils % % Neutrophils # (1.3-7.7) k/uL Lymphocytes # (1.0-4.8) k/uL Monocytes # (0-1.0) k/uL Eosinophils # (0-0.7) k/uL Basophils # (0-0.2) k/uL Hypochromasia PT (9.0-12.0) sec INR (<1.2) APTT (22.0-30.0) sec Sodium (137-145) mmol/L Potassium (3.5-5.1) mmol/L Chloride (98-107) mmol/L Carbon Dioxide (22-30) mmol/L Anion Gap mmol/L BUN (7-17) mg/dL Creatinine (0.52-1.04) mg/dL Est GFR (CKD-EPI)AfAm (>60 ml/min/1.73 sqM) Est GFR (CKD-EPI)NonAf (>60 ml/min/1.73 sqM) Glucose (74-99) mg/dL Calcium (8.4-10.2) mg/dL Total Bilirubin (0.2-1.3) mg/dL AST (14-36) U/L ALT (4-34) U/L Alkaline Phosphatase (38-126) U/L Ammonia 16 (<30) umol/L Troponin I <0.012 (0.000-0.034) ng/mL Total Protein (6.3-8.2) g/dL Albumin (3.5-5.0) g/dL Urine Color Urine Appearance (Clear) Urine pH (5.0-8.0) Ur Specific [place] (1.001-1.035) Urine Protein (Negative) Urine Glucose (UA) (Negative) Urine Ketones (Negative) Urine Blood (Negative) Urine Nitrite (Negative) Urine Bilirubin (Negative) Urine Urobilinogen (<2.0) mg/dL Ur Leukocyte Esterase (Negative) Urine RBC (0-5) /hpf Urine WBC (0-5) /hpf Ur Squamous Epith Cells (0-4) /hpf Urine Opiates Screen Detected H (NotDetected) Ur Oxycodone Screen Not Detected (NotDetected) Urine Methadone Screen Not Detected (NotDetected) Ur Propoxyphene Screen Not Detected (NotDetected) Ur Barbiturates Screen Not Detected (NotDetected) U Tricyclic Antidepress Detected H (NotDetected) Ur Phencyclidine Scrn Not Detected (NotDetected) Ur Amphetamines Screen Not Detected (NotDetected) U Methamphetamines Scrn Not Detected (NotDetected) U Benzodiazepines Scrn Detected H (NotDetected) Urine Cocaine Screen Not Detected (NotDetected) U Marijuana (THC) Screen Not Detected (NotDetected) Serum Alcohol mg/dL 03/11/22 Range/Units 20:42 WBC (3.8-10.6) k/uL RBC (3.80-5.40) m/uL Hgb (11.4-16.0) gm/dL Hct (34.0-46.0) % MCV (80.0-100.0) fL MCH (25.0-35.0) pg MCHC (31.0-37.0) g/dL RDW (11.5-15.5) % Plt Count (150-450) k/uL MPV Neutrophils % % Lymphocytes % % Monocytes % % Eosinophils % % Basophils % % Neutrophils # (1.3-7.7) k/uL Lymphocytes # (1.0-4.8) k/uL Monocytes # (0-1.0) k/uL Eosinophils # (0-0.7) k/uL Basophils # (0-0.2) k/uL Hypochromasia PT (9.0-12.0) sec INR (<1.2) APTT (22.0-30.0) sec Sodium (137-145) mmol/L Potassium (3.5-5.1) mmol/L Chloride (98-107) mmol/L Carbon Dioxide (22-30) mmol/L Anion Gap mmol/L BUN (7-17) mg/dL Creatinine (0.52-1.04) mg/dL Est GFR (CKD-EPI)AfAm (>60 ml/min/1.73 sqM) Est GFR (CKD-EPI)NonAf (>60 ml/min/1.73 sqM) Glucose (74-99) mg/dL Calcium (8.4-10.2) mg/dL Total Bilirubin (0.2-1.3) mg/dL AST (14-36) U/L ALT (4-34) U/L Alkaline Phosphatase (38-126) U/L Ammonia (<30) umol/L Troponin I (0.000-0.034) ng/mL Total Protein (6.3-8.2) g/dL Albumin (3.5-5.0) g/dL Urine Color Colorless Urine Appearance Clear (Clear) Urine pH 7.0 (5.0-8.0) Ur Specific [place] 1.006 (1.001-1.035) Urine Protein Negative (Negative) Urine Glucose (UA) Negative (Negative) Urine Ketones Negative (Negative) Urine Blood Negative (Negative) Urine Nitrite Negative (Negative) Urine Bilirubin Negative (Negative) Urine Urobilinogen <2.0 (<2.0) mg/dL Ur Leukocyte Esterase Trace H (Negative) Urine RBC 1 (0-5) /hpf Urine WBC 5 (0-5) /hpf Ur Squamous Epith Cells <1 (0-4) /hpf Urine Opiates Screen (NotDetected) Ur Oxycodone Screen (NotDetected) Urine Methadone Screen (NotDetected) Ur Propoxyphene Screen (NotDetected) Ur Barbiturates Screen (NotDetected) U Tricyclic Antidepress (NotDetected) Ur Phencyclidine Scrn (NotDetected) Ur Amphetamines Screen (NotDetected) U Methamphetamines Scrn (NotDetected) U Benzodiazepines Scrn (NotDetected) Urine Cocaine Screen (NotDetected) U Marijuana (THC) Screen (NotDetected) Serum Alcohol mg/dL Disposition Clinical Impression: Fall, Contusion of soft tissue Disposition: HOME SELF-CARE Condition: Stable Instructions (If sedation given, give patient instructions): Fall Prevention (ED), Contusion in Adults (ED) Is patient prescribed a controlled substance at d/c from ED?: No Referrals: Azam Self DO [Primary Care Provider] - 1-2 days Time of Disposition: 22:00
[2022-03-11 23:16] VITALS: BP 111/58; PULSE 89; TEMP 97.4
== END 2022-03-11 23:45 | disposition home or self-care (01) ==
LOC: EC 16:26
DX: S80.11XA Contusion of right lower leg, initial encounter (principal); I10 Essential (primary) hypertension; J44.9 Chronic obstructive pulmonary disease, unspecified; G47.30 Sleep apnea, unspecified; E03.9 Hypothyroidism, unspecified; Z79.82 Long term (current) use of aspirin; Z79.890 Hormone replacement therapy; Z91.040 Latex allergy status; W19.XXXA Unspecified fall, initial encounter
CPT/HCPCS: 36415; 93005; 80053; 82140; 84484; 85025; 85610; 85730; 81001; 80306; 73590; 73610; 73630; 71046; 93971; 72125; 70450; 99285; G0480; 80320

== ENCOUNTER 2023-02-25 18:37 | Observation (INO) | payer MEDICARE ==
[2023-02-25 19:32] LABS: Glucose,Whole Blood 133 mg/dL (70-110)
[2023-02-25 20:44] LABS: Basophils % (A) 0 %; Eosinophils # (A) 0.2 k/uL (0-0.7); Eosinophils % (A) 4 %; HCT 30.8 % (34.0-46.0); Lymphocytes # (A) 2.4 k/uL (1.0-4.8); Lymphocytes % (A) 41 %; MCH 29.8 pg (25.0-35.0); MCHC 32.6 g/dL (31.0-37.0); MCV 91.5 fL (80.0-100.0); Mean Platelet Volume 8.3; Monocytes # (A) 0.2 k/uL (0-1.0); Monocytes % (A) 4 %; Neutrophils # (A) 2.9 k/uL (1.3-7.7); Neutrophils % (A) 48 %; Platelet Count 199 k/uL (150-450); RBC 3.37 m/uL (3.80-5.40); RDW 15.8 % (11.5-15.5)
[2023-02-25 20:51] LABS: INR 0.9 (<1.2)
[2023-02-25 20:52] LABS: Partial Thromboplastin Time 24.1 sec (22.0-30.0); Prothrombin Time 10.1 sec (10.0-12.5)
[2023-02-25 20:54] LABS: ALT 14 U/L (4-34); AST 16 U/L (14-36); African American GFR (CKD) >90 (>60 ml/min/1.73 sqM); Albumin 3.1 g/dL (3.5-5.0); Alcohol <10 mg/dL; Alkaline Phosphatase 82 U/L (38-126); Anion Gap 7 mmol/L; Blood Urea Nitrogen 18 mg/dL (7-17); Calcium 8.5 mg/dL (8.4-10.2); Carbon Dioxide 22 mmol/L (22-30); Chloride 110 mmol/L (98-107); Glucose 128 mg/dL (74-99); Non-African American GFR(CKD) 88 (>60 ml/min/1.73 sqM); Potassium 3.9 mmol/L (3.5-5.1); Sodium 139 mmol/L (137-145); Total Bilirubin 0.2 mg/dL (0.2-1.3); Total Protein 5.6 g/dL (6.3-8.2)
[2023-02-25] MEDS ORDERED: NALOXONE 0.4 MG/ML 1 ML VIAL IVP STA ×2 (22:33→23:04)
--- NOTE | 2023-02-25 23:04 | ED ---
Altered Mental Status HPI - General Chief Complaint: Altered Mental Status Stated Complaint: Altered Mental Status Source: patient, EMS Mode of arrival: EMS - History of Present Illness Initial Comments: 68 year female with past medical history of fibromyalgia on chronic narcotics who presents to the emergency department with altered mental status. Patient arrives via EMS. They were called by the patient's as she was found unresponsive at home. EMS had to painfully arouse the patient. She states that she took her Seroquel and trazodone to sleep however states that she has been altered since 2:30 PM. Patient has been seen multiple times in the emergency department for same complaints. She does have history of accidentally overdosing on her opiates. Patient denies taking any excess medications today. She denies chest pain, shortness of breath. No nausea or vomiting. HPI is limited because the patient's current status - Related Data Home Medications Medication Instructions Recorded Confirmed Levothyroxine Sodium [Synthroid] 50 mcg PO DAILY 08/11/19 02/11/22 QUEtiapine FUMARATE [SEROquel] 800 mg PO HS 02/06/20 02/11/22 oxyBUTYnin chloride [Ditropan XL] 10 mg PO DAILY 06/11/20 02/11/22 Ascorbic Acid [Vitamin C] 500 mg PO DAILY 08/15/21 02/11/22 Aspirin EC [Ecotrin Low Dose] 81 mg PO DAILY 08/15/21 02/11/22 Cholecalciferol [Vitamin D3 (125 125 mcg PO DAILY 08/15/21 02/11/22 Mcg = 5000 Iu)] Cyanocobalamin [Vitamin B-12] 500 mcg PO DAILY 08/15/21 02/11/22 Divalproex [Depakote] 250 mg PO BID 08/15/21 02/11/22 Docusate [Colace] 300 mg PO DAILY 08/15/21 02/11/22 FLUoxetine HCL 40 mg PO DAILY 08/15/21 02/11/22 traZODone HCL 300 mg PO HS 08/15/21 02/11/22 Previous Rx's Medication Instructions Recorded Cefdinir 300 mg PO Q12HR #12 cap 08/19/21 LORazepam [Ativan] 2 mg PO BID PRN #6 tab 08/20/21 Sulfamethox-Tmp 800-160Mg [Bactrim 1 each PO Q12HR #6 tab 09/01/21 Ds] Morphine Sulfate Ir [MSIR] 30 mg PO BID PRN 30 Days #60 tab 10/23/21 Morphine Sulfate Ir [MSIR] 30 mg PO BID PRN 30 Days #60 tab 02/11/22 Allergies Allergy/AdvReac Type Severity Reaction Status Date / Time latex Allergy Unknown Rash/Hives Verified 02/25/23 18:59 Review of Systems ROS Statement: Those systems with pertinent positive or pertinent negative responses have been documented in the HPI. ROS Other: All systems not noted in ROS Statement are negative. Past Medical History Past Medical History: COPD, CVA/TIA, Fibromyalgia, Hypertension, Seizure Disorder, Sleep Apnea/CPAP/BIPAP, Thyroid Disorder Additional Past Medical History / Comment(s): Chronic pain mostly in neck/low back, chronic aspirin user -was taking 4-8 tablets a day for about 40 years but had accidental aspirin overdose in August 2019-ended up going into kidney failure and having to have dialysis in ICU-[facility] and started having seizures and hypertensive emergency-sent to [facility] and diagnosed with PRES encephalopathy, pt states CVA 08/2019 with memory problems/word finding problems/slow speech and occasional slurred speech, eating disorder, iron anemia, bronchitis, sinus problems, IBS, UTI with sepsis, hypothyroid, migraines. History of Any Multi-Drug Resistant Organisms: MRSA, VRE Date of last positivie culture/infection: 08/29/21-VRE; 2004 MRSA 12/06/04 MDRO Source:: VRE-Urine; MRSA- Unknown Past Surgical History: Back Surgery, Tonsillectomy Additional Past Surgical History / Comment(s): Cervical and low back surgery Past Anesthesia/Blood Transfusion Reactions: No Reported Reaction Past Psychological History: Anxiety, Bipolar, Depression, PTSD Smoking Status: Never smoker Past Alcohol Use History: Unable to Obtain Past Drug Use History: Unable to Obtain - Past Family History Sister(s) Family Medical History: Cancer, Renal Disease Additional Family Medical History / Comment(s): breast cancer, kidney cancer Mother Family Medical History: Cancer, Hypertension Additional Family Medical History / Comment(s): breast Father Additional Family Medical History / Comment(s): Father of a cardiac arrest. General Exam General appearance: alert, in no apparent distress, lethargic Head exam: Present: atraumatic, normocephalic, normal inspection Eye exam: Present: normal appearance, PERRL, EOMI. Absent: scleral icterus, conjunctival injection, periorbital swelling ENT exam: Present: normal exam, mucous membranes moist Neck exam: Present: normal inspection. Absent: tenderness, meningismus, lymphadenopathy Respiratory exam: Present: normal lung sounds bilaterally. Absent: respiratory distress, wheezes, rales, rhonchi, stridor Cardiovascular Exam: Present: regular rate, normal rhythm, normal heart sounds. Absent: systolic murmur, diastolic murmur, rubs, gallop, clicks GI/Abdominal exam: Present: soft, normal bowel sounds. Absent: distended, tenderness, guarding, rebound, rigid Extremities exam: Present: normal inspection, full ROM, normal capillary refill. Absent: tenderness, pedal edema, joint swelling, calf tenderness Back exam: Present: normal inspection Neurological exam: Present: alert, oriented X3, CN II-XII intact Psychiatric exam: Present: flat affect Skin exam: Present: warm, dry, intact, normal color. Absent: rash Course Vital Signs 02/25/23 02/25/23 02/25/23 18:50 20:13 21:20 Temperature 97.9 F Pulse Rate 61 58 L 60 Respiratory 14 12 17 Rate Blood Pressure 142/80 158/80 172/92 O2 Sat by Pulse 97 96 96 Oximetry 02/25/23 02/25/23 02/25/23 22:56 23:00 23:06 Temperature Pulse Rate 57 L Respiratory 12 14 12 Rate Blood Pressure 117/66 O2 Sat by Pulse 97 Oximetry Medical Decision Making - Medical Decision Making Was pt. sent in by a medical professional or institution (, PA, HOTEL MAINTENANCE TECHNICIAN, urgent care, hospital, or skilled nursing...) When possible be specific @ -No Did you speak to anyone other than the patient for history (EMS, parent, family, police, friend...)? What history was obtained from this source @ -I spoke with EMS for history as well as the patient's Did you review nursing and triage notes (agree or disagree)? Why? @ -I reviewed and agree with nursing and triage notes Were old charts reviewed (outside hosp., previous admission, EMS record, old EKG, old radiological studies, urgent care reports/EKG's, skilled nursing records)? Report findings @ -I reviewed several of the patient's charts as patient has been seen in the emergency department several times for altered mental status Differential Diagnosis (chest pain, altered mental status, abdominal pain women, abdominal pain men, vaginal bleeding, weakness, fever, dyspnea, syncope, headache, dizziness, GI bleed, back pain, seizure, CVA, palpatations, mental health, musculoskeletal)? @ -Differential Altered Mental Status: Hypoglycemia, DKA, hypercapnia, ETOH, overdose, CO poisoning, trauma, myxedema coma, HTN encephalopathy, infection, encephalitis, psychosis, intercranial hemorrhage, hepatic encephalopathy, meningitis, CVA, this is not meant to be an all-inclusive list EKG interpreted by me (3pts min.). @ -yes and demonstrates sinus bradycardia with a rate of 55. WV interval 162. QRS 108. QTC of 465. No acute ST segment elevation or depressions X-rays interpreted by me (1pt min.). @ -None done CT interpreted by me (1pt min.). @ -None done U/S interpreted by me (1pt. min.). @ -None done What testing was considered but not performed or refused? (CT, X-rays, U/S, labs)? Why? @ -None What meds were considered but not given or refused? Why? @ -None Did you discuss the management of the patient with other professionals (ceasar steen i.e. , PA, HOTEL MAINTENANCE TECHNICIAN, lab, RT, psych nurse, sexual assault social worker, career consultant, teacher, financial administration officer, case worker)? Give summary @ -Spoke with Dr. Bradley for admission Was smoking cessation discussed for >3mins.? @ -No Was critical care preformed (if so, how long)? @ -No Were there social determinants of health that impacted care today? How? (Homelessness, low income, unemployed, alcoholism, drug addiction, transportation, low edu. Level, literacy, decrease access to med. care, skilled nursing, rehab)? @ -No Was there de-escalation of care discussed even if they declined (Discuss DNR or withdrawal of care, Hospice)? DNR status @ -No What co-morbidities impacted this encounter? (DM, HTN, Smoking, COPD, CAD, Cancer, CVA, ARF, Chemo, Hep., AIDS, mental health diagnosis, sleep apnea, morbid obesity)? @ -Fibromyalgia on chronic pain medications Was patient admitted / discharged? Hospital course, mention meds given and route, prescriptions, significant lab abnormalities, going to OR and other pertinent info. @ -Admitted. Upon arrival patient was placed into room 4. A thorough history and physical exam was performed. IV was established laboratory studies were conducted. Patient does have a decrease in her mental status and she is difficult to awaken to painful stimuli. Because of this she was given 2 doses of Narcan. She is able to arouse better however still remains incredibly sleepy. Because of this I did recommend admission. Spoke with the patient's and updated him. Spoke with Dr. Bradley for admission Undiagnosed new problem with uncertain prognosis? @ -Yes Drug Therapy requiring intensive monitoring for toxicity (Heparin, Nitro, Insulin, Cardizem)? @ -No Were any procedures done? @ -No Diagnosis/symptom? @ -Acute encephalopathy, acute suspected medication overdose Acute, or Chronic, or Acute on Chronic? @ -Acute Uncomplicated (without systemic symptoms) or Complicated (systemic symptoms)? @ -Complicated Side effects of treatment? @ -No Exacerbation, Progression, or Severe Exacerbation? @ -No Poses a threat to life or bodily function? How? (Chest pain, USA, IA, pneumonia, PE, COPD, DKA, ARF, appy, cholecystitis, CVA, Diverticulitis, Homicidal, Suicidal, threat to staff... and all critical care pts) @ -No - Lab Data Result diagrams: 02/25/23 20:24 02/25/23 20:24 Lab Results 02/25/23 02/25/23 02/25/23 Range/Units 19:31 20:24 20:24 WBC 6.0 (3.8-10.6) k/uL RBC 3.37 L (3.80-5.40) m/uL Hgb 10.0 L (11.4-16.0) gm/dL Hct 30.8 L (34.0-46.0) % MCV 91.5 (80.0-100.0) fL MCH 29.8 (25.0-35.0) pg MCHC 32.6 (31.0-37.0) g/dL RDW 15.8 H (11.5-15.5) % Plt Count 199 (150-450) k/uL MPV 8.3 Neutrophils % 48 % Lymphocytes % 41 % Monocytes % 4 % Eosinophils % 4 % Basophils % 0 % Neutrophils # 2.9 (1.3-7.7) k/uL Lymphocytes # 2.4 (1.0-4.8) k/uL Monocytes # 0.2 (0-1.0) k/uL Eosinophils # 0.2 (0-0.7) k/uL Basophils # 0.0 (0-0.2) k/uL PT 10.1 (10.0-12.5) sec INR 0.9 (<1.2) APTT 24.1 (22.0-30.0) sec Sodium (137-145) mmol/L Potassium (3.5-5.1) mmol/L Chloride (98-107) mmol/L Carbon Dioxide (22-30) mmol/L Anion Gap mmol/L BUN (7-17) mg/dL Creatinine (0.52-1.04) mg/dL Est GFR (CKD-EPI)AfAm (>60 ml/min/1.73 sqM) Est GFR (CKD-EPI)NonAf (>60 ml/min/1.73 sqM) Glucose (74-99) mg/dL POC Glucose (mg/dL) 133 H (70-110) mg/dL POC Glu Ophthalmic Dispenser ID Lorenzo Baptiste Calcium (8.4-10.2) mg/dL Total Bilirubin (0.2-1.3) mg/dL AST (14-36) U/L ALT (4-34) U/L Alkaline Phosphatase (38-126) U/L Ammonia (<30) umol/L Troponin I (0.000-0.034) ng/mL Total Protein (6.3-8.2) g/dL Albumin (3.5-5.0) g/dL Serum Alcohol mg/dL 02/25/23 02/25/23 02/25/23 Range/Units 20:24 20:24 20:24 WBC (3.8-10.6) k/uL RBC (3.80-5.40) m/uL Hgb (11.4-16.0) gm/dL Hct (34.0-46.0) % MCV (80.0-100.0) fL MCH (25.0-35.0) pg MCHC (31.0-37.0) g/dL RDW (11.5-15.5) % Plt Count (150-450) k/uL MPV Neutrophils % % Lymphocytes % % Monocytes % % Eosinophils % % Basophils % % Neutrophils # (1.3-7.7) k/uL Lymphocytes # (1.0-4.8) k/uL Monocytes # (0-1.0) k/uL Eosinophils # (0-0.7) k/uL Basophils # (0-0.2) k/uL PT (10.0-12.5) sec INR (<1.2) APTT (22.0-30.0) sec Sodium 139 (137-145) mmol/L Potassium 3.9 (3.5-5.1) mmol/L Chloride 110 H (98-107) mmol/L Carbon Dioxide 22 (22-30) mmol/L Anion Gap 7 mmol/L BUN 18 H (7-17) mg/dL Creatinine 0.72 (0.52-1.04) mg/dL Est GFR (CKD-EPI)AfAm >90 (>60 ml/min/1.73 sqM) Est GFR (CKD-EPI)NonAf 88 (>60 ml/min/1.73 sqM) Glucose 128 H (74-99) mg/dL POC Glucose (mg/dL) (70-110) mg/dL POC Glu Ophthalmic Dispenser ID Calcium 8.5 (8.4-10.2) mg/dL Total Bilirubin 0.2 (0.2-1.3) mg/dL AST 16 (14-36) U/L ALT 14 (4-34) U/L Alkaline Phosphatase 82 (38-126) U/L Ammonia 14 (<30) umol/L Troponin I <0.012 (0.000-0.034) ng/mL Total Protein 5.6 L (6.3-8.2) g/dL Albumin 3.1 L (3.5-5.0) g/dL Serum Alcohol <10 mg/dL Disposition Clinical Impression: Altered mental status Disposition: ADMITTED IP TO THIS [facility] Condition: Stable Is patient prescribed a controlled substance at d/c from ED?: No Time of Disposition: 23:24 Decision to Admit Reason: Admit from EC Decision Date: 02/25/23 Decision Time: 23:24
[2023-02-25] MEDS ORDERED: NALOXONE 0.4 MG/ML 1 ML VIAL IV PRN (23:24)
[2023-02-26] MEDS: SODIUM CHLORIDE 0.9% 1,000 ML IV SCH ×3 (01:30→23:08)
[2023-02-26 03:24] LABS: Appearance,Urine Clear (Clear); Bilirubin,Urine Negative (Negative); Blood,Urine Negative (Negative); Color,Urine Colorless; Glucose,Urine (UA) Negative (Negative); Ketones,Urine Negative (Negative); Leukocyte Esterase,Urine Negative (Negative); Nitrite,Urine Negative (Negative); PH, Urine 6.5 (5.0-8.0); Protein,Urine Negative (Negative); Specific Gravity,Urine 1.009 (1.001-1.035); Urobilinogen,Urine <2.0 mg/dL (<2.0)
[2023-02-26 03:48] LABS: Amphetamine Screen,Urine Not Detected (NotDetected); Barbiturate Screen,Urine Not Detected (NotDetected); Benzodiazepines Screen,Urine Not Detected (NotDetected); Cocaine Screen,Urine Not Detected (NotDetected); Methadone Screen, Urine Not Detected (NotDetected); Opiate Screen,Urine Detected (NotDetected); Oxycodone Screen, Urine Not Detected (NotDetected); Phencyclidine Screen,Urine Not Detected (NotDetected); Tricyclic Antidepressant,Urine Detected (NotDetected); Urn Cannabinoid Scrn Not Detected (NotDetected)
--- NOTE | 2023-02-26 04:06 | P.HPIM ---
History of Present Illness H&P Date: 02/26/23 Patient is a 68-year-old female with a PMH of COPD, hypertension, bipolar disorder, PTSD, fibromyalgia, seizure disorder, who was brought into the emergency room for altered mental status. The patient had reportedly been altered at home since around 2:30 PM. He the patient had told her that she had taken her Seroquel and trazodone in an attempt to sleep. Of note, the patient does have a history of accidental opiate overdoses in the past. The patient was arousable to tactile stimuli but was not answering any questions and no meaningful history could be obtained. The patient was given Narcan 2 in the emergency room with minimal improvement. EKG emergency room revealed sinus rhythm at [address]/T-wave changes daughter as reviewed by me. Laboratory evaluation revealed urine toxicology positive for opiates and barbiturates with glucose 128, BUN 18, and hemoglobin 10.0 (at baseline) ED documentation reviewed and case discussed with ED provider. Review of systems: Unable to obtain due to mental status Physical examination: Vital signs reviewed General: non toxic, no distress, appears at stated age, normal weight Derm: no unusual rashes/lesions, warm Head: atraumatic, normocephalic, symmetric Eyes: EOMI, no lid lag, anicteric sclera, pupils equal round reactive to light ENT: Nose and ears atraumatic Neck: No cervical lymphadenopathy, trachea midline, supple Mouth: no lip lesion, mucus membranes moist Cardiovascular: S1S2 reg, no murmur, positive dorsalis pedis pulse bilateral, no edema Lungs: CTA bilateral, no rhonchi, no rales, no accessory muscle use Abdominal: soft, nontender to palpation, no guarding Ext: Moving all extremities grossly , no gross muscle atrophy, no contractures, Neuro: Unable to obtain due to mental status Psych: Arousable to tactile stimuli but not answering any questions and falls right back to sleep Assessment: Altered mental status, unclear etiology Chronic conditions: COPD, hypertension, bipolar disorder, PTSD, seizure disorder Imaging: EKG emergency room revealed sinus rhythm at [address]/T-wave changes daughter as reviewed by me. Data Review: Laboratory evaluation revealed urine toxicology positive for opiates and barbiturates with glucose 128, BUN 18, and hemoglobin 10.0 (at baseline) Plan: Follow-up CT brain without contrast Neurology consult Status post Narcan 2 without improvement Follow-up Depakote levels Continue with home medications once reconciled DVT prophylaxis: Lovenox Subq The patient is admitted with an anticipated less than 2 midnight stay for marilu luation of altered mental status CODE STATUS: Full Code Anticipated discharge place: Home Past Medical History Past Medical History: COPD, CVA/TIA, Fibromyalgia, Hypertension, Seizure Disorder, Sleep Apnea/CPAP/BIPAP, Thyroid Disorder Additional Past Medical History / Comment(s): Chronic pain mostly in neck/low back, chronic aspirin user -was taking 4-8 tablets a day for about 40 years but had accidental aspirin overdose in August 2019-ended up going into kidney failure and having to have dialysis in ICU-[facility] and started having seizures and hypertensive emergency-sent [facility] and diagnosed with PRES encephalopathy, pt states CVA 08/2019 with memory problems/word finding problems/slow speech and occasional slurred speech, eating disorder, iron anemia, bronchitis, sinus problems, IBS, UTI with sepsis, hypothyroid, migraines. History of Any Multi-Drug Resistant Organisms: MRSA, VRE Date of last positivie culture/infection: 08/29/21-VRE; 2004 MRSA 12/06/04 MDRO Source:: VRE-Urine; MRSA- Unknown Past Surgical History: Back Surgery, Tonsillectomy Additional Past Surgical History / Comment(s): Cervical and low back surgery Past Anesthesia/Blood Transfusion Reactions: No Reported Reaction Past Psychological History: Anxiety, Bipolar, Depression, PTSD Smoking Status: Never smoker Past Alcohol Use History: Unable to Obtain Past Drug Use History: Unable to Obtain - Past Family History Sister(s) Family Medical History: Cancer, Renal Disease Additional Family Medical History / Comment(s): breast cancer, kidney cancer Mother Family Medical History: Cancer, Hypertension Additional Family Medical History / Comment(s): breast Father Additional Family Medical History / Comment(s): Father of a cardiac arrest. Medications and Allergies Home Medications Medication Instructions Recorded Confirmed Type Levothyroxine Sodium [Synthroid] 50 mcg PO DAILY 08/11/19 02/11/22 History QUEtiapine FUMARATE [SEROquel] 800 mg PO HS 02/06/20 02/11/22 History oxyBUTYnin chloride [Ditropan XL] 10 mg PO DAILY 06/11/20 02/11/22 History Ascorbic Acid [Vitamin C] 500 mg PO DAILY 08/15/21 02/11/22 History Aspirin EC [Ecotrin Low Dose] 81 mg PO DAILY 08/15/21 02/11/22 History Cholecalciferol [Vitamin D3 (125 125 mcg PO DAILY 08/15/21 02/11/22 History Mcg = 5000 Iu)] Cyanocobalamin [Vitamin B-12] 500 mcg PO DAILY 08/15/21 02/11/22 History Divalproex [Depakote] 250 mg PO BID 08/15/21 02/11/22 History Docusate [Colace] 300 mg PO DAILY 08/15/21 02/11/22 History FLUoxetine HCL 40 mg PO DAILY 08/15/21 02/11/22 History traZODone HCL 300 mg PO HS 08/15/21 02/11/22 History Cefdinir 300 mg PO Q12HR #12 cap 08/19/21 02/11/22 Rx LORazepam [Ativan] 2 mg PO BID PRN #6 tab 08/20/21 02/11/22 Rx Sulfamethox-Tmp 800-160Mg [Bactrim 1 each PO Q12HR #6 tab 09/01/21 02/11/22 Rx Ds] Morphine Sulfate Ir [MSIR] 30 mg PO BID PRN 30 Days #60 tab 10/23/21 02/11/22 Rx Morphine Sulfate Ir [MSIR] 30 mg PO BID PRN 30 Days #60 tab 02/11/22 Rx Allergies Allergy/AdvReac Type Severity Reaction Status Date / Time latex Allergy Unknown Rash/Hives Verified 02/25/23 18:59 Physical Exam Vitals: Vital Signs Temp Pulse Resp BP Pulse Ox 02/26/23 02:00 52 L 20 139/67 99 02/25/23 23:06 12 02/25/23 23:00 57 L 14 117/66 97 02/25/23 22:56 12 02/25/23 21:20 60 17 172/92 96 02/25/23 20:13 58 L 12 158/80 96 02/25/23 18:50 97.9 F 61 14 142/80 97 Intake and Output 02/25/23 02/25/23 02/26/23 14:59 22:59 06:59 Other: Weight 68.039 kg Results CBC & Chem 7: 02/25/23 20:24 02/25/23 20:24 Labs: Abnormal Lab Results - Last 24 Hours (Table) 02/25/23 02/25/23 02/25/23 Range/Units 19:31 20:24 20:24 RBC 3.37 L (3.80-5.40) m/uL Hgb 10.0 L (11.4-16.0) gm/dL Hct 30.8 L (34.0-46.0) % RDW 15.8 H (11.5-15.5) % Chloride 110 H (98-107) mmol/L BUN 18 H (7-17) mg/dL Glucose 128 H (74-99) mg/dL POC Glucose (mg/dL) 133 H (70-110) mg/dL Total Protein 5.6 L (6.3-8.2) g/dL Albumin 3.1 L (3.5-5.0) g/dL Urine Opiates Screen (NotDetected) U Tricyclic Antidepress (NotDetected) 02/26/23 Range/Units 02:48 RBC (3.80-5.40) m/uL Hgb (11.4-16.0) gm/dL Hct (34.0-46.0) % RDW (11.5-15.5) % Chloride (98-107) mmol/L BUN (7-17) mg/dL Glucose (74-99) mg/dL POC Glucose (mg/dL) (70-110) mg/dL Total Protein (6.3-8.2) g/dL Albumin (3.5-5.0) g/dL Urine Opiates Screen Detected H (NotDetected) U Tricyclic Antidepress Detected H (NotDetected)
--- NOTE | 2023-02-26 07:51 | CT ---
EXAMINATION TYPE: CT brain wo con DATE OF EXAM: 02/26/2023 COMPARISON: 03/11/2022 HISTORY: 68-year-old female with confusion, altered mental state TECHNIQUE: Examination was done in axial plane without intravenous contrast. Coronal and sagittal r econstructions performed. CT DLP: 1167.4 mGycm Automated exposure control for dose reduction was used. FINDINGS: There is no evidence of acute intracranial hemorrhage, acute ischemic changes, mass, mass-effect, or extra-axial fluid collection. There is no effacement of cerebral sulci or basal subarachnoid cister ns. There is no hydrocephalus. There is no midline shift. Blank-white matter distinction is preserv ed. Encephalomalacia/hypodensity left greater than right occipital lobes is unchanged back to 03/11/2022. C hronic subinsular white matter hypodensity on the left. Benign hyperostosis frontalis interna. Rightward nasal septal deviation. Mild lobulated mucosal thick ening floor of the left maxillary sinus. Orbits and globes are intact. IMPRESSION: Old encephalomalacia left greater than right occipital lobes suggests sequela of prior infarct or tra bina. Unchanged back to at least 03/11/2022. Clinically correlate. No acute intracranial abnormality see n.
[2023-02-26] MEDS ORDERED: MORPHINE SULFATE IR 15 MG TABLET PO PRN (08:10)
[2023-02-26] MEDS: ENOXAPARIN 40 MG/0.4 ML SYRINGE SQ SCH (08:15)
[2023-02-26] MEDS: LEVOTHYROXINE 75 MCG TAB PO SCH (16:25)
[2023-02-26] MEDS: PANTOPRAZOLE 40 MG TABLET PO SCH (16:25)
[2023-02-26] MEDS: DULoxetine HCL 60 MG CAPSULE.DR PO SCH (16:25)
[2023-02-26] MEDS: MELOXICAM 7.5 MG TAB PO SCH (16:43)
[2023-02-26] MEDS: QUEtiapine 400 MG TAB PO SCH ×2 (16:43→20:21)
[2023-02-26] MEDS: DIVALPROEX 250 MG TABLET.DR PO SCH (16:44)
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
[2023-02-26] MEDS: OXYBUTYNIN 10 MG TAB.ER.24 PO SCH (17:15)
[2023-02-26] MEDS: busPIRone HCl 5 MG TAB PO SCH ×2 (17:15→22:11)
[2023-02-26] MEDS: prednisoLONE ACETATE 1% OPHTH DROPS 5 ML BTL LEFT EYE SCH ×2 (17:15→22:07)
[2023-02-26] MEDS: MOXIFLOXACIN HCL 0.5% DROPS 3 ML BTL LEFT EYE SCH ×2 (17:16→22:07)
[2023-02-26] MEDS: KETOROLAC 0.5% OPHTH DROPS 5 ML BTL LEFT EYE SCH ×2 (17:16→22:07)
[2023-02-26] MEDS ORDERED: BENZONATATE 100 MG CAP PO PRN (17:19)
[2023-02-26] MEDS: OXcarbazepine 150 MG TAB PO SCH (20:21)
[2023-02-26] MEDS ORDERED: traZODone HCL 50 MG TAB PO SCH (21:00)
[2023-02-26] MEDS: NON FORMULARY DRUG (Lithium Carbonate [Lithium Carbonate Er] 300 MG Tablet) PO SCH (22:09)
[2023-02-26] MEDS ORDERED: HYDROcodone/APAP 10-325MG 1 EACH TAB PO ONE (22:30)
[2023-02-27 07:12] VITALS: RESP 16
[2023-02-27 08:26] LABS: ALT 14 U/L (4-34); AST 17 U/L (14-36); African American GFR (CKD) >90 (>60 ml/min/1.73 sqM); Albumin 3.1 g/dL (3.5-5.0); Albumin/Globulin Ratio 1.3; Alkaline Phosphatase 83 U/L (38-126); Anion Gap 7 mmol/L; Blood Urea Nitrogen 17 mg/dL (7-17); Calcium 8.6 mg/dL (8.4-10.2); Carbon Dioxide 21 mmol/L (22-30); Chloride 108 mmol/L (98-107); Globulin 2.4 g/dL; Glucose 90 mg/dL (74-99); Magnesium 2.2 mg/dL (1.6-2.3); Non-African American GFR(CKD) 80 (>60 ml/min/1.73 sqM); Potassium 4.2 mmol/L (3.5-5.1); Sodium 136 mmol/L (137-145); Total Bilirubin 0.3 mg/dL (0.2-1.3); Total Protein 5.5 g/dL (6.3-8.2)
[2023-02-27 08:39] LABS: HCT 32.8 % (34.0-46.0); HGB 10.5 gm/dL (11.4-16.0); Hypochromasia Slight; MCH 29.5 pg (25.0-35.0); MCHC 31.9 g/dL (31.0-37.0); MCV 92.5 fL (80.0-100.0); Mean Platelet Volume 8.7; Platelet Count 196 k/uL (150-450); RBC 3.55 m/uL (3.80-5.40); RDW 15.9 % (11.5-15.5); WBC 5.9 k/uL (3.8-10.6)
[2023-02-27 09:39] LABS: T4, Free (Free Thyroxine) 0.82 ng/dL (0.78-2.19)
[2023-02-27] MEDS: LEVOTHYROXINE 75 MCG TAB PO SCH (09:46)
[2023-02-27] MEDS: PANTOPRAZOLE 40 MG TABLET PO SCH (09:46)
[2023-02-27] MEDS: busPIRone HCl 5 MG TAB PO SCH ×2 (09:46→16:50)
[2023-02-27] MEDS: OXcarbazepine 150 MG TAB PO SCH (09:46)
[2023-02-27] MEDS: MELOXICAM 7.5 MG TAB PO SCH (09:46)
[2023-02-27] MEDS: DIVALPROEX 250 MG TABLET.DR PO SCH (09:46)
[2023-02-27] MEDS: DULoxetine HCL 60 MG CAPSULE.DR PO SCH (09:46)
[2023-02-27] MEDS: OXYBUTYNIN 10 MG TAB.ER.24 PO SCH (09:46)
[2023-02-27] MEDS: prednisoLONE ACETATE 1% OPHTH DROPS 5 ML BTL LEFT EYE SCH ×2 (09:47→16:50)
[2023-02-27] MEDS: MOXIFLOXACIN HCL 0.5% DROPS 3 ML BTL LEFT EYE SCH ×2 (09:47→16:50)
[2023-02-27] MEDS: KETOROLAC 0.5% OPHTH DROPS 5 ML BTL LEFT EYE SCH ×2 (09:47→16:50)
[2023-02-27] MEDS: NON FORMULARY DRUG (Lithium Carbonate [Lithium Carbonate Er] 300 MG Tablet) PO SCH (10:22)
[2023-02-27] MEDS: ENOXAPARIN 40 MG/0.4 ML SYRINGE SQ SCH (10:22)
[2023-02-27] MEDS: HYDROcodone/APAP 5-325MG 1 EACH TAB PO PRN ×2 (11:10→16:46)
--- NOTE | 2023-02-27 12:48 | P.DS ---
Providers Date of admission: 02/25/23 23:24 Expected date of discharge: 02/27/23 Attending physician: Charlie Bradley MD Consults: 02/26/23 04:06 Consult Physician Urgent Consulting Provider: Noble Fontanez Consult Reason/Comments: ams Do you want consulting provider notified?: Yes Primary care physician: [facility] Course: Patient is a 68-year-old female with a PMH of COPD, hypertension, bipolar disorder, PTSD, fibromyalgia, seizure disorder, who was brought into the emergency room for altered mental status. The patient had reportedly been altered at home since around 2:30 PM. He the patient had told her that she had taken her Seroquel and trazodone in an attempt to sleep. Of note, the patient does have a history of accidental opiate overdoses in the past. The patient was arousable to tactile stimuli but was not answering any questions and no meaningful history could be obtained. The patient was given Narcan 2 in the emergency room with minimal improvement. Her mentation returned back to baseline. Her Seroquel was reduced to 400 mg and Trazadone to 150 mg PO QHS. Neurology consulted, started on Trilepta. Her altered mentation is likely related to oversedation from multiple medications including Seroquel, Buspar, Gabapentin, Trazadone. 02/27 Patient was seen and examined. Mentation back to baseline. She reports chronic lower back pain, requesting Belle. Advised to follow up with Neurology within 1 week of discharge. Plans for discharge home today. Pertinent studies include brain CT. General: non toxic, no distress, appears at stated age Derm: warm, dry Head: atraumatic, normocephalic, symmetric Eyes: EOMI, no lid lag, anicteric sclera Cardiovascular: S1S2 reg, no murmur Lungs: CTA bilaterally, no rhonchi, no rales , no accessory muscle use Ext: no gross muscle atrophy, no edema, no contractures Neuro: no focal neuro deficits Psych: Alert, oriented, appropriate affect Discharge Diagnosis: Altered mental status, believed to be secondary to polysubstance abuse/medication misuse Bipolar disorder Depression and anxiety Fibromyalgia with chronic pain Seizure disorder Hypertension Hyperlipidemia COPD This complex discharge took 35 minutes to complete. Patient Condition at Discharge: Stable Plan - Discharge Summary Discharge Rx Participant: No New Discharge Prescriptions: New traZODone HCL [Desyrel] 150 mg PO HS #90 tab QUEtiapine [SEROquel] 400 mg PO HS #30 tab HYDROcodone/APAP 5-325MG [[place] 5-325] 1 each PO Q6HR PRN #12 tab PRN Reason: Pain OXcarbazepine [Trileptal] 150 mg PO BID #60 tab Continue Ibuprofen [Motrin] 600 mg PO Q6HR PRN PRN Reason: Pain Ketorolac 0.5% Ophth Soln [Acular 0.5%] 1 drop LEFT EYE TID [place] Carbonate [[place] Carbonate ER] 300 mg PO BID Moxifloxacin HCl [Moxifloxacin 0.5%] 1 drop LEFT EYE TID oxyBUTYnin chloride [Ditropan XL] 10 mg PO DAILY Divalproex [Depakote] 250 mg PO DAILY busPIRone HCL 15 mg PO TID Celecoxib [CeleBREX] 200 mg PO BID DULoxetine HCL [Cymbalta] 60 mg PO DAILY Gabapentin [Neurontin] 800 mg PO TID Levothyroxine Sodium [Synthroid] 75 mcg PO DAILY Pantoprazole [Protonix] 40 mg PO DAILY prednisoLONE ACETATE 1% OPHTH [Pred Forte 1%] 1 drop LEFT EYE TID Discontinued QUEtiapine FUMARATE [SEROquel] 800 mg PO HS traZODone HCL 300 mg PO HS HYDROcodone/APAP 10-325MG [[place] 10-325] 1 tab PO TID PRN PRN Reason: Pain Discharge Medication List oxyBUTYnin chloride [Ditropan XL] 10 mg PO DAILY 06/11/20 [History] Divalproex [Depakote] 250 mg PO DAILY 08/15/21 [History] Celecoxib [CeleBREX] 200 mg PO BID 02/26/23 [History] DULoxetine HCL [Cymbalta] 60 mg PO DAILY 02/26/23 [History] Gabapentin [Neurontin] 800 mg PO TID 02/26/23 [History] Ibuprofen [Motrin] 600 mg PO Q6HR PRN 02/26/23 [History] Ketorolac 0.5% Ophth Soln [Acular 0.5%] 1 drop LEFT EYE TID 02/26/23 [History] Levothyroxine Sodium [Synthroid] 75 mcg PO DAILY 02/26/23 [History] [place] Carbonate [[place] Carbonate ER] 300 mg PO BID 02/26/23 [History] Moxifloxacin HCl [Moxifloxacin 0.5%] 1 drop LEFT EYE TID 02/26/23 [History] Pantoprazole [Protonix] 40 mg PO DAILY 02/26/23 [History] busPIRone HCL 15 mg PO TID 02/26/23 [History] prednisoLONE ACETATE 1% OPHTH [Pred Forte 1%] 1 drop LEFT EYE TID 02/26/23 [History] HYDROcodone/APAP 5-325MG [[place] 5-325] 1 each PO Q6HR PRN #12 tab 02/27/23 [Rx] OXcarbazepine [Trileptal] 150 mg PO BID #60 tab 02/27/23 [Rx] QUEtiapine [SEROquel] 400 mg PO HS #30 tab 02/27/23 [Rx] traZODone HCL [Desyrel] 150 mg PO HS #90 tab 02/27/23 [Rx] Follow up Appointment(s)/Referral(s): Malena Sr MD [Medical Doctor] - 1 Week Azam Self DO [Primary Care Provider] - 1-2 days Discharge Disposition: HOME SELF-CARE
[2023-02-27 14:47] VITALS: BP 90/57; PULSE 84; TEMP 98.4
[2023-02-27] MEDS: SODIUM CHLORIDE 0.9% 1,000 ML IV SCH (16:49)
== END 2023-02-27 16:50 | disposition home or self-care (01) ==
LOC: EC 18:37 → 6NMEDSUR 23:24
PROVIDERS: ADMIT Internal Medicine; ATTEND Internal Medicine
DX: R41.82 Altered mental status, unspecified (principal); F19.10 Other psychoactive substance abuse, uncomplicated; F31.9 Bipolar disorder, unspecified; F43.10 Post-traumatic stress disorder, unspecified; M79.7 Fibromyalgia; G89.4 Chronic pain syndrome; M54.50 Low back pain, unspecified; M54.2 Cervicalgia; G40.909 Epilepsy, unspecified, not intractable, without status epilepticus; E78.5 Hyperlipidemia, unspecified; I10 Essential (primary) hypertension; J44.9 Chronic obstructive pulmonary disease, unspecified; K76.82 Hepatic encephalopathy; G47.30 Sleep apnea, unspecified; E03.9 Hypothyroidism, unspecified; K58.9 Irritable bowel syndrome, unspecified; F41.9 Anxiety disorder, unspecified; Z86.73 Personal history of transient ischemic attack (TIA), and cerebral infarction without residual deficits; Z87.440 Personal history of urinary (tract) infections; Z86.14 Personal history of Methicillin resistant Staphylococcus aureus infection; Z16.24 Resistance to multiple antibiotics; Z79.891 Long term (current) use of opiate analgesic; Z79.890 Hormone replacement therapy; Z79.82 Long term (current) use of aspirin; Z79.899 Other long term (current) drug therapy; Z91.040 Latex allergy status; Z80.3 Family history of malignant neoplasm of breast; Z80.51 Family history of malignant neoplasm of kidney; Z82.49 Family history of ischemic heart disease and other diseases of the circulatory system; Z82.41 Family history of sudden cardiac death
CPT/HCPCS: 96361 ×2; 96372; 96374; 99285; 36415; 93005; 84439; 80165; 80053 ×2; 84443; 82140; 80178; 83735; 84484; 85025; 85027; 85610; 85730; 81003; 81025; 80306; 80320; 70450; G0378 ×3; J2310; J1650

== ENCOUNTER 2023-03-12 07:52 | Observation (INO) | payer MEDICARE ==
[2023-03-12] MEDS ORDERED: methylPREDNISolone SOD SUCCI 125 MG/2 ML VIAL IV STA (08:05)
[2023-03-12 08:22] LABS: Anisocytosis Slight; Basophils % (A) 0 %; Eosinophils # (A) 0.1 k/uL (0-0.7); Eosinophils % (A) 1 %; HCT 33.3 % (34.0-46.0); HGB 10.5 gm/dL (11.4-16.0); Hypochromasia Slight; Lymphocytes # (A) 2.4 k/uL (1.0-4.8); Lymphocytes % (A) 26 %; MCH 28.9 pg (25.0-35.0); MCHC 31.6 g/dL (31.0-37.0); MCV 91.6 fL (80.0-100.0); Monocytes # (A) 0.3 k/uL (0-1.0); Monocytes % (A) 3 %; Neutrophils # (A) 6.3 k/uL (1.3-7.7); Neutrophils % (A) 67 %; Platelet Count 374 k/uL (150-450); RBC 3.63 m/uL (3.80-5.40); RDW 16.8 % (11.5-15.5); WBC 9.5 k/uL (3.8-10.6)
[2023-03-12 08:34] LABS: Partial Thromboplastin Time 25.9 sec (22.0-30.0); Prothrombin Time 10.6 sec (10.0-12.5)
[2023-03-12 08:35] LABS: ALT 12 U/L (4-34); AST 18 U/L (14-36); African American GFR (CKD) >90 (>60 ml/min/1.73 sqM); Albumin 3.6 g/dL (3.5-5.0); Alkaline Phosphatase 106 U/L (38-126); Anion Gap 12 mmol/L; Blood Urea Nitrogen 16 mg/dL (7-17); Calcium 8.9 mg/dL (8.4-10.2); Carbon Dioxide 20 mmol/L (22-30); Chloride 109 mmol/L (98-107); Glucose 106 mg/dL (74-99); Magnesium 2.2 mg/dL (1.6-2.3); Non-African American GFR(CKD) 79 (>60 ml/min/1.73 sqM); Potassium 3.8 mmol/L (3.5-5.1); Sodium 141 mmol/L (137-145); Total Bilirubin 0.3 mg/dL (0.2-1.3); Total Protein 6.3 g/dL (6.3-8.2)
[2023-03-12 08:43] LABS: NT-Pro-B-Type Natriuretic Pept 265 pg/mL
--- NOTE | 2023-03-12 08:44 | ED ---
General Adult HPI - General Chief complaint: Shortness of Breath Stated complaint: MARION Time Seen by Provider: 03/12/23 07:53 Source: patient, EMS, RN notes reviewed Mode of arrival: EMS Limitations: no limitations - History of Present Illness Initial comments: 68-year-old female presents emergency department via EMS chief complaint of shortness breath, cough congestion. Patient states she had increasing respiratory symptoms last few days. She states that she was recently hospitalized in [place] for this for symptoms and which she states she had respiratory failure. Patient states that she was given a DuoNeb treatment on the way in by EMS had minimal improvement. Patient states that she has some mild leg swelling. EMS reports that she had a pulse ox in the mid 80s. Upon arrival she was 88% to emergency department. - Related Data Home Medications Medication Instructions Recorded Confirmed oxyBUTYnin chloride [Ditropan XL] 10 mg PO DAILY 06/11/20 03/12/23 Divalproex [Depakote] 250 mg PO DAILY 08/15/21 03/12/23 Celecoxib [CeleBREX] 200 mg PO BID 02/26/23 03/12/23 DULoxetine HCL [Cymbalta] 60 mg PO DAILY 02/26/23 03/12/23 Gabapentin [Neurontin] 800 mg PO TID 02/26/23 03/12/23 Ibuprofen [Motrin] 600 mg PO Q6HR PRN 02/26/23 03/12/23 Ketorolac 0.5% Ophth Soln [Acular 1 drop LEFT EYE TID 02/26/23 03/12/23 0.5%] Levothyroxine Sodium [Synthroid] 75 mcg PO DAILY 02/26/23 03/12/23 [place] Carbonate [[place] 300 mg PO BID 02/26/23 03/12/23 Carbonate ER] Moxifloxacin HCl [Moxifloxacin 1 drop LEFT EYE TID 02/26/23 03/12/23 0.5%] Pantoprazole [Protonix] 40 mg PO DAILY 02/26/23 03/12/23 busPIRone HCL 15 mg PO TID 02/26/23 03/12/23 prednisoLONE ACETATE 1% OPHTH 1 drop LEFT EYE TID 02/26/23 03/12/23 [Pred Forte 1%] HYDROcodone/APAP 5-325MG [[place] 1 tab PO Q6HR PRN 03/12/23 03/12/23 5-325] Previous Rx's Medication Instructions Recorded OXcarbazepine [Trileptal] 150 mg PO BID #60 tab 02/27/23 QUEtiapine [SEROquel] 400 mg PO HS #30 tab 02/27/23 traZODone HCL [Desyrel] 150 mg PO HS #90 tab 02/27/23 Allergies Allergy/AdvReac Type Severity Reaction Status Date / Time latex Allergy Unknown Rash/Hives Verified 03/12/23 11:56 Review of Systems ROS Statement: Those systems with pertinent positive or pertinent negative responses have been documented in the HPI. ROS Other: All systems not noted in ROS Statement are negative. Past Medical History Past Medical History: COPD, CVA/TIA, Fibromyalgia, Hypertension, Seizure Disorder, Sleep Apnea/CPAP/BIPAP, Thyroid Disorder Additional Past Medical History / Comment(s): Chronic pain mostly in neck/low back, chronic aspirin user -was taking 4-8 tablets a day for about 40 years but had accidental aspirin overdose in August 2019-ended up going into kidney failure and having to have dialysis in ICU-[facility] and started having seizures and hypertensive emergency-sent to [facility] and diagnosed with PRES encephalopathy, pt states CVA 08/2019 with memory problems/word finding problems/slow speech and occasional slurred speech, eating disorder, iron anemia, bronchitis, sinus problems, IBS, UTI with sepsis, hypothyroid, migraines. History of Any Multi-Drug Resistant Organisms: MRSA, VRE Date of last positivie culture/infection: 08/29/21-VRE; 2004 MRSA 12/06/04 MDRO Source:: VRE-Urine; MRSA- Unknown Past Surgical History: Back Surgery, Tonsillectomy Additional Past Surgical History / Comment(s): Cervical and low back surgery Past Anesthesia/Blood Transfusion Reactions: No Reported Reaction Past Psychological History: Anxiety, Bipolar, Depression, PTSD Smoking Status: Former smoker Past Alcohol Use History: None Reported Past Drug Use History: None Reported - Past Family History Sister(s) Family Medical History: Cancer, Renal Disease Additional Family Medical History / Comment(s): breast cancer, kidney cancer Mother Family Medical History: Cancer, Hypertension Additional Family Medical History / Comment(s): breast Father Additional Family Medical History / Comment(s): Father of a cardiac arrest. General Exam Limitations: no limitations General appearance: alert, in no apparent distress Head exam: Present: atraumatic, normocephalic, normal inspection Eye exam: Present: normal appearance, PERRL, EOMI. Absent: scleral icterus, conjunctival injection, periorbital swelling ENT exam: Present: normal exam, mucous membranes moist Neck exam: Present: normal inspection. Absent: tenderness, meningismus, lymphadenopathy Respiratory exam: Present: wheezes, rhonchi. Absent: normal lung sounds bilaterally, respiratory distress, rales, stridor Cardiovascular Exam: Present: regular rate, normal rhythm, normal heart sounds. Absent: systolic murmur, diastolic murmur, rubs, gallop, clicks GI/Abdominal exam: Present: soft, normal bowel sounds. Absent: distended, tenderness, guarding, rebound, rigid Course Vital Signs 03/12/23 03/12/23 03/12/23 07:57 08:00 08:05 Temperature 98.3 F Pulse Rate 82 89 Respiratory 24 18 24 Rate Blood Pressure 123/59 123/59 O2 Sat by Pulse 94 L 92 L Oximetry 03/12/23 03/12/23 03/12/23 08:30 09:00 09:30 Temperature Pulse Rate 89 85 81 Respiratory 18 18 18 Rate Blood Pressure 131/77 134/68 140/78 O2 Sat by Pulse 95 95 91 L Oximetry 03/12/23 03/12/23 03/12/23 09:58 10:00 10:09 Temperature Pulse Rate 82 78 84 Respiratory 17 Rate Blood Pressure 138/70 O2 Sat by Pulse 92 L Oximetry 03/12/23 03/12/23 03/12/23 10:30 11:00 11:30 Temperature Pulse Rate 92 Respiratory 18 Rate Blood Pressure 110/72 132/61 141/88 O2 Sat by Pulse 94 L 94 L Oximetry 03/12/23 03/12/23 03/12/23 12:11 12:22 13:00 Temperature Pulse Rate 83 86 95 Respiratory 17 Rate Blood Pressure 130/73 O2 Sat by Pulse Oximetry EKG Findings - EKG Comments: EKG Findings:: EKG performed at 8:09 sinus rhythm with rate of 78 SD 155 QRS 98 QT /QTC 428/461 - EKG Results: EKG: interpreted by SOFIA Medical Decision Making - Medical Decision Making Was pt. sent in by a medical professional or institution ([employer]TE[employer] Hoffmann, [employer] SALES REPRESENTATIVE, urgent care, hospital, or long term...) When possible be specific @ -No Did you speak to anyone other than the patient for history (EMS, parent, family, police, friend...)? What history was obtained from this source @ -EMS Prehospital vitals and treatment Did you review nursing and triage notes (agree or disagree)? Why? @ -I reviewed and agree with nursing and triage notes Were old charts reviewed (outside hosp., previous admission, EMS record, old EKG, old radiological studies, urgent care reports/EKG's, long term records)? Report findings @ -No old charts were reviewed Differential Diagnosis (chest pain, altered mental status, abdominal pain women, abdominal pain men, vaginal bleeding, weakness, fever, dyspnea, syncope, headache, dizziness, GI bleed, back pain, seizure, CVA, palpatations, mental health, musculoskeletal)? @ -nDifferential Dyspnea: Coronary syndrome, arrhythmia, tamponade, asthma, COPD, pulmonary embolism, pneumonia, pneumothorax, pulmonary effusion, anaphylaxis, diabetic ketoacidosis, flailed chest, pulmonary contusion, diaphragmatic rupture, anemia, neuromuscular, this is not meant to be an all-inclusive list. le EKG interpreted by me (3pts min.). @ -As above X-rays interpreted by me (1pt min.). @ -Chest x-ray shows pulmonary edema, COPD changes, possible atypical pneumonia CT interpreted by me (1pt min.). @ -None done U/S interpreted by me (1pt. min.). @ -None done What testing was considered but not performed or refused? (CT, X-rays, U/S, labs)? Why? @ -None What meds were considered but not given or refused? Why? @ -None Did you discuss the management of the patient with other professionals (professionals i.e. [employer] Hoffmann, [employer] SALES REPRESENTATIVE, lab, RT, psych nurse, social work associate, human geography faculty member, teacher, executive vice president and chief financial officer, case work aide)? Give summary @ -Dr. Givens for admission secondary hypoxia, COPD exacerbation Was smoking cessation discussed for >3mins.? @ -No Was critical care preformed (if so, how long)? @ -No Were there social determinants of health that impacted care today? How? (Homelessness, low income, unemployed, alcoholism, drug addiction, transportation, low edu. Level, literacy, decrease access to med. care, longterm, rehab)? @ -No Was there de-escalation of care discussed even if they declined (Discuss DNR or withdrawal of care, Hospice)? DNR status @ -No What co-morbidities impacted this encounter? (DM, HTN, Smoking, COPD, CAD, Cancer, CVA, ARF, Chemo, Hep., AIDS, mental health diagnosis, sleep apnea, morbid obesity)? @ -COPD Was patient admitted / discharged? Hospital course, mention meds given and route, prescriptions, significant lab abnormalities, going to OR and other pertinent info. @ -[Admitted patient's did have notable hypoxia 88% patient does have diffuse wheezing, pulmonary edema on x-ray this more likely to be infectious BMP is 256. Patient will be admitted with pulmonary consult was started breathing treatments, steroids, antibiotics. Undiagnosed new problem with uncertain prognosis? @ -No Drug Therapy requiring intensive monitoring for toxicity (Heparin, Nitro, Insulin, Cardizem)? @ -No Were any procedures done? @ -No Diagnosis/symptom? @ -COPD exacerbation, hypoxia, pulmonary edema Acute, or Chronic, or Acute on Chronic? @ -Acute Uncomplicated (without systemic symptoms) or Complicated (systemic symptoms)? @ -Complicated Side effects of treatment? @ -No Exacerbation, Progression, or Severe Exacerbation? @ -Exacerbation Poses a threat to life or bodily function? How? (Chest pain, [place], [place], pneumonia, PE, COPD, DKA, ARF, appy, cholecystitis, CVA, Diverticulitis, Homicidal, Suicidal, threat to staff... and all critical care pts) @ -No - Lab Data Result diagrams: 03/12/23 08:13 03/12/23 08:13 Lab Results 03/12/23 03/12/23 03/12/23 Range/Units 08:13 08:13 08:13 WBC 9.5 (3.8-10.6) k/uL RBC 3.63 L (3.80-5.40) m/uL Hgb 10.5 L (11.4-16.0) gm/dL Hct 33.3 L (34.0-46.0) % MCV 91.6 (80.0-100.0) fL MCH 28.9 (25.0-35.0) pg MCHC 31.6 (31.0-37.0) g/dL RDW 16.8 H (11.5-15.5) % Plt Count 374 (150-450) k/uL MPV 8.0 Neutrophils % 67 % Lymphocytes % 26 % Monocytes % 3 % Eosinophils % 1 % Basophils % 0 % Neutrophils # 6.3 (1.3-7.7) k/uL Lymphocytes # 2.4 (1.0-4.8) k/uL Monocytes # 0.3 (0-1.0) k/uL Eosinophils # 0.1 (0-0.7) k/uL Basophils # 0.0 (0-0.2) k/uL Hypochromasia Slight Anisocytosis Slight PT 10.6 (10.0-12.5) sec INR 1.0 (<1.2) APTT 25.9 (22.0-30.0) sec Sodium 141 (137-145) mmol/L Potassium 3.8 (3.5-5.1) mmol/L Chloride 109 H (98-107) mmol/L Carbon Dioxide 20 L (22-30) mmol/L Anion Gap 12 mmol/L BUN 16 (7-17) mg/dL Creatinine 0.79 (0.52-1.04) mg/dL Est GFR (CKD-EPI)AfAm >90 (>60 ml/min/1.73 sqM) Est GFR (CKD-EPI)NonAf 79 (>60 ml/min/1.73 sqM) Glucose 106 H (74-99) mg/dL Plasma Lactic Acid Slava (0.7-2.0) mmol/L Calcium 8.9 (8.4-10.2) mg/dL Magnesium 2.2 (1.6-2.3) mg/dL Total Bilirubin 0.3 (0.2-1.3) mg/dL AST 18 (14-36) U/L ALT 12 (4-34) U/L Alkaline Phosphatase 106 (38-126) U/L Troponin I (0.000-0.034) ng/mL NT-Pro-B Natriuret Pep 265 pg/mL Total Protein 6.3 (6.3-8.2) g/dL Albumin 3.6 (3.5-5.0) g/dL Influenza Type A (PCR) (Not Detectd) Influenza Type B (PCR) (Not Detectd) RSV (PCR) (Not Detectd) SARS-CoV-2 (PCR) (Not Detectd) 03/12/23 03/12/23 03/12/23 Range/Units 08:13 08:13 08:13 WBC (3.8-10.6) k/uL RBC (3.80-5.40) m/uL Hgb (11.4-16.0) gm/dL Hct (34.0-46.0) % MCV (80.0-100.0) fL MCH (25.0-35.0) pg MCHC (31.0-37.0) g/dL RDW (11.5-15.5) % Plt Count (150-450) k/uL MPV Neutrophils % % Lymphocytes % % Monocytes % % Eosinophils % % Basophils % % Neutrophils # (1.3-7.7) k/uL Lymphocytes # (1.0-4.8) k/uL Monocytes # (0-1.0) k/uL Eosinophils # (0-0.7) k/uL Basophils # (0-0.2) k/uL Hypochromasia Anisocytosis PT (10.0-12.5) sec INR (<1.2) APTT (22.0-30.0) sec Sodium (137-145) mmol/L Potassium (3.5-5.1) mmol/L Chloride (98-107) mmol/L Carbon Dioxide (22-30) mmol/L Anion Gap mmol/L BUN (7-17) mg/dL Creatinine (0.52-1.04) mg/dL Est GFR (CKD-EPI)AfAm (>60 ml/min/1.73 sqM) Est GFR (CKD-EPI)NonAf (>60 ml/min/1.73 sqM) Glucose (74-99) mg/dL Plasma Lactic Acid Slava 0.8 (0.7-2.0) mmol/L Calcium (8.4-10.2) mg/dL Magnesium (1.6-2.3) mg/dL Total Bilirubin (0.2-1.3) mg/dL AST (14-36) U/L ALT (4-34) U/L Alkaline Phosphatase (38-126) U/L Troponin I <0.012 (0.000-0.034) ng/mL NT-Pro-B Natriuret Pep pg/mL Total Protein (6.3-8.2) g/dL Albumin (3.5-5.0) g/dL Influenza Type A (PCR) Not Detected (Not Detectd) Influenza Type B (PCR) Not Detected (Not Detectd) RSV (PCR) Not Detected (Not Detectd) SARS-CoV-2 (PCR) Not Detected (Not Detectd) Disposition Clinical Impression: COPD exacerbation, Hypoxia, Pulmonary edema Disposition: ADMITTED IP TO THIS HOSP Condition: Poor Time of Disposition: 10:31
--- NOTE | 2023-03-12 08:48 | XR ---
EXAMINATION TYPE: XR chest 2V DATE OF EXAM: 03/12/2023 COMPARISON: Chest x-ray from March 11, 2022 HISTORY: Difficulty in breathing TECHNIQUE: Frontal and lateral views of the chest are obtained. FINDINGS: Mild central vascular congestion suspected on current study There is patchy left basilar o pacity redemonstrated. No pleural effusion or pneumothorax seen bilaterally. The cardiac silhouette size remains within normal limits. New surgical changes in the cervical spine is partially imaged on this study. IMPRESSION: Chronic left basilar opacity favors scarring. Mild central vascular congestion suspected , correlate for fluid overload state.
[2023-03-12] MEDS ORDERED: IPRATROPIUM-ALBUTEROL 3 ML NEB INHALATION STA (09:11)
[2023-03-12] MEDS ORDERED: IPRATROPIUM-ALBUTEROL 3 ML NEB INHALATION PRN (10:46)
[2023-03-12] MEDS: DOXYCYCLINE 100 MG CAP PO SCH ×2 (10:52→20:45)
[2023-03-12] MEDS ORDERED: NALOXONE 0.4 MG/ML 1 ML VIAL IVP PRN (11:59)
[2023-03-12] MEDS ORDERED: methylPREDNISolone SOD SUCCI 125 MG/2 ML VIAL IV SCH (12:00)
[2023-03-12] MEDS: IPRATROPIUM-ALBUTEROL 3 ML NEB INHALATION SCH ×3 (12:10→19:37)
[2023-03-12] MEDS: HYDROcodone/APAP 5-325MG 1 EACH TAB PO PRN ×3 (12:47→22:18)
[2023-03-12] MEDS: ACETAMINOPHEN TAB 325 MG TAB PO PRN ×2 (13:38→19:18)
[2023-03-12] MEDS ORDERED: IBUPROFEN 600 MG TAB PO PRN (14:58)
--- NOTE | 2023-03-12 14:59 | P.HPIM ---
History of Present Illness H&P Date: 03/12/23 Chief Complaint: dyspnea 68 year old woman with history of COPD, seizure disorder, HTN, PTSD, bipolar disorder presented for evaluation of dyspnea. Pt says that she developed worsening dyspnea over the last few days. She reports that last month she was in [place] and had significant respiratory distress and was intubated and had CPR, and since that time has not felt totally back to normal. She was last discharged from our facility on 02/27 after being admitted for accidental overdose of norco. Pt denies f/c, reports n/v, denies cp, palps, cough. Denies abd pain. Neuro exam, patient was afebrile, 123 or 59, heart rate 82, 94% on 2 L nasal cannula. CBC showed anemia done at 10.5. Basic metabolic panel showed CO2 of 20. Liver function tests are unremarkable. BNP was 265, troponin was less than 0.012. Influenza A, B, RSV, Covid were negative. Coags were unremarkable. Chest x-ray shows chronic left basilar opacity with mild central vascular congestion. EKG shows sinus rhythm with left axis deviation. All Systems reviewed and pertinent positives and negatives noted in HPI, all other symptoms are negative Gen: in no apparent distress, resting comfortably in bed Eyes: PERRL, no scleral injection or icterus HENT: normocephalic, atraumatic, good hearing acuity, moist mucous membranes Neck: no tracheal deviation, full range of motion Resp: Diffuse wheezing CVS: good distal perfusion x 4, no pitting edema GI: soft, NTTP, ND, no hepatosplenomegaly : no suprapubic tenderness, no CVAT, nichols catheter not present MSK: no clubbing, no cyanosis, no noted contractures of extremities Skin: no noted rashes, petechiae; temperature of skin is appropriate Neuro: moving all extremities without signs of weakness, CN II-XII intact Psych: cooperative, euthymic mood, insight and judgment intact Labs and imaging as above Assessment/plan: Acute hypoxemic respiratory failure COPD exacerbation -Admit to observation -Pulmonology consult -DuoNeb's every 4 hours -Prednisone 40 minutes daily -Doxycycline twice a day Seizure disorder Hypertension PTSD Bipolar disorder -Home medications reviewed and reconciled Patient is full code Past Medical History Past Medical History: COPD, CVA/TIA, Fibromyalgia, Hypertension, Seizure Disorder, Sleep Apnea/CPAP/BIPAP, Thyroid Disorder Additional Past Medical History / Comment(s): Chronic pain mostly in neck/low back, chronic aspirin user -was taking 4-8 tablets a day for about 40 years but had accidental aspirin overdose in August 2019-ended up going into kidney failure and having to have dialysis in ICU-[facility] and started having seizures and hypertensive emergency-sent [facility] and diagnosed with PRES encephalopathy, pt states CVA 08/2019 with memory problems/word finding problems/slow speech and occasional slurred speech, eating disorder, iron anemia, bronchitis, sinus problems, IBS, UTI with sepsis, hypothyroid, migraines. History of Any Multi-Drug Resistant Organisms: MRSA, VRE Date of last positivie culture/infection: 08/29/21-VRE; 2004 MRSA 12/06/04 MDRO Source:: VRE-Urine; MRSA- Unknown Past Surgical History: Back Surgery, Tonsillectomy Additional Past Surgical History / Comment(s): Cervical and low back surgery Past Anesthesia/Blood Transfusion Reactions: No Reported Reaction Past Psychological History: Anxiety, Bipolar, Depression, PTSD Smoking Status: Former smoker Past Alcohol Use History: None Reported Past Drug Use History: None Reported - Past Family History Sister(s) Family Medical History: Cancer, Renal Disease Additional Family Medical History / Comment(s): breast cancer, kidney cancer Mother Family Medical History: Cancer, Hypertension Additional Family Medical History / Comment(s): breast Father Additional Family Medical History / Comment(s): Father of a cardiac arrest. Medications and Allergies Home Medications Medication Instructions Recorded Confirmed Type oxyBUTYnin chloride [Ditropan XL] 10 mg PO DAILY 06/11/20 03/12/23 History Divalproex [Depakote] 250 mg PO DAILY 08/15/21 03/12/23 History Celecoxib [CeleBREX] 200 mg PO BID 02/26/23 03/12/23 History DULoxetine HCL [Cymbalta] 60 mg PO DAILY 02/26/23 03/12/23 History Gabapentin [Neurontin] 800 mg PO TID 02/26/23 03/12/23 History Ibuprofen [Motrin] 600 mg PO Q6HR PRN 02/26/23 03/12/23 History Ketorolac 0.5% Ophth Soln [Acular 1 drop LEFT EYE TID 02/26/23 03/12/23 History 0.5%] Levothyroxine Sodium [Synthroid] 75 mcg PO DAILY 02/26/23 03/12/23 History [place] Carbonate [[place] 300 mg PO BID 02/26/23 03/12/23 History Carbonate ER] Moxifloxacin HCl [Moxifloxacin 1 drop LEFT EYE TID 02/26/23 03/12/23 History 0.5%] Pantoprazole [Protonix] 40 mg PO DAILY 02/26/23 03/12/23 History busPIRone HCL 15 mg PO TID 02/26/23 03/12/23 History prednisoLONE ACETATE 1% OPHTH 1 drop LEFT EYE TID 02/26/23 03/12/23 History [Pred Forte 1%] OXcarbazepine [Trileptal] 150 mg PO BID #60 tab 02/27/23 03/12/23 Rx QUEtiapine [SEROquel] 400 mg PO HS #30 tab 02/27/23 03/12/23 Rx traZODone HCL [Desyrel] 150 mg PO HS #90 tab 02/27/23 03/12/23 Rx HYDROcodone/APAP 5-325MG [[place] 1 tab PO Q6HR PRN 03/12/23 03/12/23 History 5-325] Allergies Allergy/AdvReac Type Severity Reaction Status Date / Time latex Allergy Unknown Rash/Hives Verified 03/12/23 11:56 Physical Exam Osteopathic Statement: *. No significant issues noted on an osteopathic structural exam other than those noted in the History and Physical/Consult. Vitals: Vital Signs Temp Pulse Resp BP Pulse Ox 03/12/23 13:00 95 17 130/73 03/12/23 12:22 86 03/12/23 12:11 83 03/12/23 11:30 92 18 141/88 03/12/23 11:00 132/61 94 L 03/12/23 10:30 110/72 94 L 03/12/23 10:09 84 03/12/23 10:00 78 17 138/70 92 L 03/12/23 09:58 82 03/12/23 09:30 81 18 140/78 91 L 03/12/23 09:00 85 18 134/68 95 03/12/23 08:30 89 18 131/77 95 03/12/23 08:05 24 03/12/23 08:00 89 18 123/59 92 L 03/12/23 07:57 98.3 F 82 24 123/59 94 L Intake and Output 03/11/23 03/12/23 03/12/23 22:59 06:59 14:59 Other: Weight 68.039 kg Results CBC & Chem 7: 03/12/23 08:13 03/12/23 08:13 Labs: Abnormal Lab Results - Last 24 Hours (Table) 03/12/23 03/12/23 Range/Units 08:13 08:13 RBC 3.63 L (3.80-5.40) m/uL Hgb 10.5 L (11.4-16.0) gm/dL Hct 33.3 L (34.0-46.0) % RDW 16.8 H (11.5-15.5) % Chloride 109 H (98-107) mmol/L Carbon Dioxide 20 L (22-30) mmol/L Glucose 106 H (74-99) mg/dL
--- NOTE | 2023-03-12 15:17 | P.CNPUL ---
History of Present Illness Consult date: 03/12/23 Requesting physician: Leo Givens Reason for consult: dyspnea, hypoxemia, abnormal CXR/CT Chief complaint: Shortness of breath, cough, congestion History of present illness: This is a pleasant 68-year-old female patient with a known history of chronic obstructive pulmonary disease, former smoker, bipolar disorder, PTSD, hypothyroidism, seizure disorder who presented here to the emergency room early this morning with a 3 to four-day history of increasing shortness of breath cough congestion wheezing. She had recently been in [place] 3-4 weeks ago visiting her mom and ended up in the hospital there for 6 days for similar episode. As x-ray today reveals chronic left basilar opacities favoring scarring. Mild central vascular congestion suspected. Possible fluid volume overload. Count 9.5. Hemoglobin 10.5. Platelets 374. Sodium 141 potassium 3.8. Bicarb 20. BUN 16. Creatinine 0.79. Glucose 106. AST 18. ALT 12. ProBNP 265. Troponin negative 1. Viral screen negative. Initiated on DuoNeb inhalations, Symbicort, prednisone. Empiric antibiotics in the form of Vi bramycin. Pro-calcitonin pending. She is seen in the emergency department. Currently sitting up in a stretcher. Awake and alert in no acute distress. Maintaining O2 saturations in the 90s on room air. She's afebrile. Hemodynamically stable. Review of Systems REVIEW OF SYSTEMS: CONSTITUTIONAL: Denies any recent significant weight loss or weight gain. EYES: Denies change in vision. EARS, NOSE, MOUTH, THROAT: Denies headaches, denies sore throat. CARDIOVASCULAR: Denies chest pain, palpitations or syncopal episodes. RESPIRATORY: Positive for shortness of breath, cough, congestion no hemoptysis. GASTROINTESTINAL: Denies change in appetite, denies abdominal pain GENITOURINARY: Denies hematuria, denies infections. MUSKULOSKELETAL: Denies pain, denies swelling. INTEGUMENTARY: Denies rash, denies eczema. NEUROLOGICAL: Denies recent memory loss, no recent seizure activity. PSYCHIATRIC: Denies anxiety, denies depression. HEMATOLOGIC/LYMPHATIC: Denies anemia, denies enlarged lymph nodes. Past Medical History Past Medical History: COPD, CVA/TIA, Fibromyalgia, Hypertension, Seizure Disorder, Sleep Apnea/CPAP/BIPAP, Thyroid Disorder Additional Past Medical History / Comment(s): Chronic pain mostly in neck/low back, chronic aspirin user -was taking 4-8 tablets a day for about 40 years but had accidental aspirin overdose in August 2019-ended up going into kidney failure and having to have dialysis in ICU-went [facility] and started having seizures and hypertensive emergency-sent to [facility] and diagnosed with PRES encephalopathy, pt states CVA 08/2019 with memory problems/word finding problems/slow speech and occasional slurred speech, eating disorder, iron anemia, bronchitis, sinus problems, IBS, UTI with sepsis, hypothyroid, migraines. History of Any Multi-Drug Resistant Organisms: MRSA, VRE Date of last positivie culture/infection: 08/29/21-VRE; 2004 MRSA 12/06/04 MDRO Source:: VRE-Urine; MRSA- Unknown Past Surgical History: Back Surgery, Tonsillectomy Additional Past Surgical History / Comment(s): Cervical and low back surgery Past Anesthesia/Blood Transfusion Reactions: No Reported Reaction Past Psychological History: Anxiety, Bipolar, Depression, PTSD Smoking Status: Former smoker Past Alcohol Use History: None Reported Past Drug Use History: None Reported - Past Family History Sister(s) Family Medical History: Cancer, Renal Disease Additional Family Medical History / Comment(s): breast cancer, kidney cancer Mother Family Medical History: Cancer, Hypertension Additional Family Medical History / Comment(s): breast Father Additional Family Medical History / Comment(s): Father of a cardiac arrest. Medications and Allergies Home Medications Medication Instructions Recorded Confirmed Type oxyBUTYnin chloride [Ditropan XL] 10 mg PO DAILY 06/11/20 03/12/23 History Divalproex [Depakote] 250 mg PO DAILY 08/15/21 03/12/23 History Celecoxib [CeleBREX] 200 mg PO BID 02/26/23 03/12/23 History DULoxetine HCL [Cymbalta] 60 mg PO DAILY 02/26/23 03/12/23 History Gabapentin [Neurontin] 800 mg PO TID 02/26/23 03/12/23 History Ibuprofen [Motrin] 600 mg PO Q6HR PRN 02/26/23 03/12/23 History Ketorolac 0.5% Ophth Soln [Acular 1 drop LEFT EYE TID 02/26/23 03/12/23 History 0.5%] Levothyroxine Sodium [Synthroid] 75 mcg PO DAILY 02/26/23 03/12/23 History Lamoille Carbonate [Lamoille 300 mg PO BID 02/26/23 03/12/23 History Carbonate ER] Moxifloxacin HCl [Moxifloxacin 1 drop LEFT EYE TID 02/26/23 03/12/23 History 0.5%] Pantoprazole [Protonix] 40 mg PO DAILY 02/26/23 03/12/23 History busPIRone HCL 15 mg PO TID 02/26/23 03/12/23 History prednisoLONE ACETATE 1% OPHTH 1 drop LEFT EYE TID 02/26/23 03/12/23 History [Pred Forte 1%] OXcarbazepine [Trileptal] 150 mg PO BID #60 tab 02/27/23 03/12/23 Rx QUEtiapine [SEROquel] 400 mg PO HS #30 tab 02/27/23 03/12/23 Rx traZODone HCL [Desyrel] 150 mg PO HS #90 tab 02/27/23 03/12/23 Rx HYDROcodone/APAP 5-325MG [[place] 1 tab PO Q6HR PRN 03/12/23 03/12/23 History 5-325] Allergies Allergy/AdvReac Type Severity Reaction Status Date / Time latex Allergy Unknown Rash/Hives Verified 03/12/23 11:56 Physical Exam Vitals: Vital Signs Temp Pulse Resp BP Pulse Ox 03/12/23 13:00 95 17 130/73 03/12/23 12:22 86 03/12/23 12:11 83 03/12/23 11:30 92 18 141/88 03/12/23 11:00 132/61 94 L 03/12/23 10:30 110/72 94 L 03/12/23 10:09 84 03/12/23 10:00 78 17 138/70 92 L 03/12/23 09:58 82 03/12/23 09:30 81 18 140/78 91 L 03/12/23 09:00 85 18 134/68 95 03/12/23 08:30 89 18 131/77 95 03/12/23 08:05 24 03/12/23 08:00 89 18 123/59 92 L 03/12/23 07:57 98.3 F 82 24 123/59 94 L Intake and Output 03/12/23 03/12/23 03/12/23 06:59 14:59 22:59 Other: Weight 68.039 kg GENERAL EXAM: Alert, pleasant 68-year-old female, on room air, fairly comfortable in no apparent distress. HEAD: Normocephalic. EYES: Normal reaction of pupils, equal size. NOSE: Clear with pink turbinates. THROAT: No erythema or exudates. NECK: No masses, no JVD. CHEST: No chest wall deformity. LUNGS: Equal air entry with few scattered rhonchi, end expiratory wheeze, diminished. CVS: S1 and S2 normal with no audible murmur, regular rhythm. ABDOMEN: No hepatosplenomegaly, normal bowel sounds, no guarding or rigidity. SPINE: No scoliosis or deformity SKIN: No rashes CENTRAL NERVOUS SYSTEM: No focal deficits, tone is normal in all 4 extremities. EXTREMITIES: There is no peripheral edema. No clubbing, no cyanosis. Peripheral pulses are intact. Results - Laboratory Findings CBC and BMP: 03/12/23 08:13 03/12/23 08:13 PT/INR, D-dimer PT 10.6 sec (10.0-12.5) 03/12/23 08:13 INR 1.0 (<1.2) 03/12/23 08:13 Abnormal lab findings: Abnormal Labs 03/12/23 03/12/23 08:13 08:13 RBC 3.63 L Hgb 10.5 L Hct 33.3 L RDW 16.8 H Chloride 109 H Carbon Dioxide 20 L Glucose 106 H - Diagnostic Findings Chest x-ray: image reviewed Assessment and Plan Assessment: Acute exacerbation of chronic obstructive pulmonary disease complicated by left lower lobe possible early pneumonia. Viral screen negative. Pro-calcitonin pending History of chronic obstructive pulmonary disease Former smoker History of bipolar disorder History of posttraumatic stress disorder History of seizure disorder History of hypothyroidism History of vocal cord injury secondary to previous neck surgery Plan: The patient was seen and evaluated Chest x-ray, labs and medications reviewed Continue DuoNeb inhalations, Symbicort Continue prednisone Empiric antibiotics in the form of Vibramycin Procalcitonin pending We will continue to follow and make further recommendations based on her clinical status I have personally seen and examined the patient, performed the documentation and the assessment and plan as written. Number of minutes spent on the visit: 20.
[2023-03-12] MEDS: busPIRone HCl 5 MG TAB PO SCH ×2 (15:22→20:45)
[2023-03-12] MEDS: GABAPENTIN 400 MG CAP PO SCH ×2 (15:22→20:45)
[2023-03-12] MEDS: prednisoLONE ACETATE 1% OPHTH DROPS 5 ML BTL LEFT EYE SCH ×2 (15:52→20:48)
[2023-03-12] MEDS: MOXIFLOXACIN HCL 0.5% DROPS 3 ML BTL LEFT EYE SCH ×2 (15:52→20:48)
[2023-03-12] MEDS: KETOROLAC 0.5% OPHTH DROPS 5 ML BTL LEFT EYE SCH ×2 (15:52→20:48)
[2023-03-12] MEDS: SYMBICORT 160-4.5 MCG INHALER INHALATION SCH (19:37)
[2023-03-12] MEDS: OXcarbazepine 150 MG TAB PO SCH (20:45)
[2023-03-12] MEDS: traZODone HCL 50 MG TAB PO SCH (20:45)
[2023-03-12] MEDS: guaiFENesin 600 MG TABLET.ER PO SCH (20:47)
[2023-03-12] MEDS: QUEtiapine 400 MG TAB PO SCH (20:47)
[2023-03-12] MEDS: LITHIUM CARBONATE 300 MG PO SCH (20:48)
[2023-03-12] MEDS ORDERED: LITHIUM CARBONATE 300 MG CAP PO SCH (21:00)
[2023-03-12] MEDS: BUTALB/APAP/CAFF 50-325-40MG TAB PO PRN (23:47)
[2023-03-12] MEDS: BENZONATATE 100 MG CAP PO PRN (23:47)
[2023-03-13] MEDS ORDERED: SODIUM CHLORIDE 0.9% 500 ML 500 ML IV ONE (01:07)
[2023-03-13] MEDS: HYDROcodone/APAP 5-325MG 1 EACH TAB PO PRN ×5 (03:37→22:16)
[2023-03-13] MEDS: LEVOTHYROXINE 75 MCG TAB PO SCH (05:33)
[2023-03-13 06:40] LABS: Anisocytosis Slight; Basophils % (A) 0 %; Eosinophils % (A) 0 %; HCT 30.8 % (34.0-46.0); HGB 9.9 gm/dL (11.4-16.0); Hypochromasia Slight; Lymphocytes # (A) 2.1 k/uL (1.0-4.8); Lymphocytes % (A) 11 %; MCH 29.5 pg (25.0-35.0); MCHC 32.1 g/dL (31.0-37.0); MCV 92.1 fL (80.0-100.0); Mean Platelet Volume 8.3; Monocytes # (A) 0.7 k/uL (0-1.0); Monocytes % (A) 3 %; Neutrophils # (A) 16.2 k/uL (1.3-7.7); Neutrophils % (A) 84 %; Platelet Count 404 k/uL (150-450); RBC 3.34 m/uL (3.80-5.40); WBC 19.4 k/uL (3.8-10.6)
[2023-03-13 07:18] LABS: African American GFR (CKD) >90 (>60 ml/min/1.73 sqM); Anion Gap 11 mmol/L; Blood Urea Nitrogen 21 mg/dL (7-17); Calcium 9.2 mg/dL (8.4-10.2); Carbon Dioxide 21 mmol/L (22-30); Chloride 107 mmol/L (98-107); Glucose 101 mg/dL (74-99); Magnesium 2.4 mg/dL (1.6-2.3); Non-African American GFR(CKD) 86 (>60 ml/min/1.73 sqM); Potassium 4.1 mmol/L (3.5-5.1); Sodium 139 mmol/L (137-145)
[2023-03-13] MEDS: IPRATROPIUM-ALBUTEROL 3 ML NEB INHALATION SCH ×4 (07:53→21:22)
[2023-03-13] MEDS: SYMBICORT 160-4.5 MCG INHALER INHALATION SCH ×2 (07:53→21:22)
[2023-03-13] MEDS: predniSONE 20 MG TAB PO SCH (08:05)
[2023-03-13] MEDS: BENZONATATE 100 MG CAP PO PRN (08:05)
[2023-03-13] MEDS: busPIRone HCl 5 MG TAB PO SCH ×3 (08:05→20:22)
[2023-03-13] MEDS: DULoxetine HCL 60 MG CAPSULE.DR PO SCH (08:06)
[2023-03-13] MEDS: GABAPENTIN 400 MG CAP PO SCH ×3 (08:06→20:22)
[2023-03-13] MEDS: MELOXICAM 7.5 MG TAB PO SCH (08:06)
[2023-03-13] MEDS: guaiFENesin 600 MG TABLET.ER PO SCH ×2 (08:06→20:22)
[2023-03-13] MEDS: ENOXAPARIN 40 MG/0.4 ML SYRINGE SQ SCH (08:06)
[2023-03-13] MEDS: PANTOPRAZOLE 40 MG TABLET PO SCH (08:06)
[2023-03-13] MEDS: DOXYCYCLINE 100 MG CAP PO SCH ×2 (08:07→20:23)
[2023-03-13] MEDS: DIVALPROEX 250 MG TABLET.DR PO SCH (08:08)
[2023-03-13] MEDS: OXcarbazepine 150 MG TAB PO SCH ×2 (08:08→20:23)
[2023-03-13] MEDS: OXYBUTYNIN 10 MG TAB.ER.24 PO SCH (08:08)
[2023-03-13] MEDS: MOXIFLOXACIN HCL 0.5% DROPS 3 ML BTL LEFT EYE SCH ×3 (08:09→20:22)
[2023-03-13] MEDS: KETOROLAC 0.5% OPHTH DROPS 5 ML BTL LEFT EYE SCH ×3 (08:09→20:22)
[2023-03-13] MEDS: prednisoLONE ACETATE 1% OPHTH DROPS 5 ML BTL LEFT EYE SCH ×3 (08:10→20:21)
[2023-03-13] MEDS: LITHIUM CARBONATE 300 MG PO SCH ×2 (09:18→20:21)
[2023-03-13] MEDS: BUTALB/APAP/CAFF 50-325-40MG TAB PO PRN (09:39)
--- NOTE | 2023-03-13 12:35 | P.PN ---
Subjective Progress Note Date: 03/13/23 No new complaints today. Gen: in no apparent distress, resting comfortably in bed Eyes: PERRL, no scleral injection or icterus HENT: normocephalic, atraumatic, good hearing acuity, moist mucous membranes Neck: no tracheal deviation, full range of motion Resp: Diffuse wheezing CVS: good distal perfusion x 4, no pitting edema GI: soft, NTTP, ND, no hepatosplenomegaly : no suprapubic tenderness, no CVAT, nichols catheter not present MSK: no clubbing, no cyanosis, no noted contractures of extremities Skin: no noted rashes, petechiae; temperature of skin is appropriate Neuro: moving all extremities without signs of weakness, CN II-XII intact Psych: cooperative, euthymic mood, insight and judgment intact Hospital Course: 68 year old woman with history of COPD, seizure disorder, HTN, PTSD, bipolar disorder presented for evaluation of dyspnea. In the Emergency Room, patient was afebrile, 123 or 59, heart rate 82, 94% on 2 L nasal cannula. CBC showed anemia done at 10.5. Basic metabolic panel showed CO2 of 20. Liver function tests are unremarkable. BNP was 265, troponin was less than 0.012. Influenza A, B, RSV, Covid were negative. Coags were unremarkable. Chest x-ray shows chronic left basilar opacity with mild central vascular congestion. EKG shows sinus rhythm with left axis deviation. Assessment/plan: Acute hypoxemic respiratory failure COPD exacerbation -Admit to observation -Pulmonology consult -DuoNeb's every 4 hours -Prednisone 40 minutes daily -Doxycycline twice a day Seizure disorder Hypertension PTSD Bipolar disorder -Home medications reviewed and reconciled Patient is full code Objective - Vital Signs Vital signs: Vital Signs Temp 98.3 F 03/13/23 08:00 Pulse 92 03/13/23 12:33 Resp 18 03/13/23 08:00 BP 106/62 03/13/23 08:00 Pulse Ox 94 L 03/13/23 08:00 FiO2 Intake & Output 03/12/23 03/13/23 03/13/23 18:59 06:59 18:59 Weight 68.039 kg 68.039 kg Other: # Voids 3 - Labs CBC & Chem 7: 03/13/23 05:49 03/13/23 05:49 Labs: Abnormal Lab Results - Last 24 Hours (Table) 03/13/23 03/13/23 Range/Units 05:49 05:49 WBC 19.4 H (3.8-10.6) k/uL RBC 3.34 L (3.80-5.40) m/uL Hgb 9.9 L (11.4-16.0) gm/dL Hct 30.8 L (34.0-46.0) % RDW 17.0 H (11.5-15.5) % Neutrophils # 16.2 H (1.3-7.7) k/uL Carbon Dioxide 21 L (22-30) mmol/L BUN 21 H (7-17) mg/dL Glucose 101 H (74-99) mg/dL Magnesium 2.4 H (1.6-2.3) mg/dL
--- NOTE | 2023-03-13 14:34 | P.PN ---
Subjective Progress Note Date: 03/13/23 This is a pleasant 68-year-old female patient with a known history of chronic obstructive pulmonary disease, former smoker, bipolar disorder, PTSD, hypothyroidism, seizure disorder who presented here to the emergency room early this morning with a 3 to four-day history of increasing shortness of breath co ugh congestion wheezing. She had recently been in [place] 3-4 weeks ago visiting her mom and ended up in the hospital there for 6 days for similar episode. As x-ray today reveals chronic left basilar opacities favoring scarring. Mild central vascular congestion suspected. Possible fluid volume overload. Count 9.5. Hemoglobin 10.5. Platelets 374. Sodium 141 potassium 3.8. Bicarb 20. BUN 16. Creatinine 0.79. Glucose 106. AST 18. ALT 12. ProBNP 265. Troponin negative 1. Viral screen negative. Initiated on DuoNeb inhalations, Symbicort, prednisone. Empiric antibiotics in the form of Vibramycin. Pro-calcitonin pending. She is seen in the emergency department. Currently sitting up in a stretcher. Awake and alert in no acute distress. Maintaining O2 saturations in the 90s on room air. She's afebrile. Hemodynamically stable. The patient is seen today 03/13/2023 in follow-up on the regular medical floor. She is currently sitting up in the bedside. Awake and alert in no acute distress. Doing a bit better today compared to yesterday. Still with a loose nonproductive cough. Still dyspneic with conversation. Dyspneic with minimal exertion. Count 19.4. Hemoglobin 9.9. Sodium 139. Potassium 4.1. Bicarb 21 BUN 21. Creatinine 0.73. Pro-calcitonin was negative at 0.05. She remains on DuoNeb inhalations, Symbicort, prednisone. Lovenox for DVT prophylaxis. Empiric antibiotics in the form of Vibramycin. Tessalon Perles and Mucinex for her cough. Objective - Vital Signs Vital signs: Vital Signs Temp 98.1 F 03/13/23 14:00 Pulse 98 03/13/23 14:00 Resp 16 03/13/23 14:00 BP 90/53 03/13/23 14:00 Pulse Ox 96 03/13/23 14:00 FiO2 Intake & Output 03/12/23 03/13/23 03/13/23 18:59 06:59 18:59 Weight 68.039 kg 68.039 kg Other: # Voids 3 - Exam GENERAL EXAM: Alert, 68-year-old female, room air, comfortable in no apparent distress. HEAD: Normocephalic. EYES: Normal reaction of pupils, equal size. NOSE: Clear with pink turbinates. THROAT: No erythema or exudates. NECK: No masses, no JVD. CHEST: No chest wall deformity. LUNGS: Equal air entry with bilateral scattered rhonchi. CVS: S1 and S2 normal with no audible murmur, regular rhythm. ABDOMEN: No hepatosplenomegaly, normal bowel sounds, no guarding or rigidity. SPINE: No scoliosis or deformity SKIN: No rashes CENTRAL NERVOUS SYSTEM: No focal deficits, tone is normal in all 4 extremities. EXTREMITIES: There is no peripheral edema. No clubbing, no cyanosis. Peripheral pulses are intact. - Labs CBC & Chem 7: 03/13/23 05:49 03/13/23 05:49 Labs: Abnormal Lab Results - Last 24 Hours (Table) 03/13/23 03/13/23 Range/Units 05:49 05:49 WBC 19.4 H (3.8-10.6) k/uL RBC 3.34 L (3.80-5.40) m/uL Hgb 9.9 L (11.4-16.0) gm/dL Hct 30.8 L (34.0-46.0) % RDW 17.0 H (11.5-15.5) % Neutrophils # 16.2 H (1.3-7.7) k/uL Carbon Dioxide 21 L (22-30) mmol/L BUN 21 H (7-17) mg/dL Glucose 101 H (74-99) mg/dL Magnesium 2.4 H (1.6-2.3) mg/dL Vitamin D 25-Hydroxy 27.7 L (30.0-100.0) ng/mL Assessment and Plan Assessment: Acute exacerbation of chronic obstructive pulmonary disease complicated by left lower lobe possible early pneumonia. Viral screen negative. Pro-calcitonin negative History of chronic obstructive pulmonary disease Former smoker History of bipolar disorder History of posttraumatic stress disorder History of seizure disorder History of hypothyroidism History of vocal cord injury secondary to previous neck surgery Plan: The patient was seen and evaluated Labs and medications reviewed Continue the current treatment plan We will continue to follow I have personally seen and examined the patient, performed the documentation and the assessment and plan as written. Number of minutes spent on the visit: 10.
[2023-03-13] MEDS: traZODone HCL 50 MG TAB PO SCH (20:22)
[2023-03-13] MEDS: QUEtiapine 400 MG TAB PO SCH (20:23)
[2023-03-14] MEDS: BUTALB/APAP/CAFF 50-325-40MG TAB PO PRN ×3 (02:19→18:34)
[2023-03-14] MEDS: HYDROcodone/APAP 5-325MG 1 EACH TAB PO PRN ×5 (03:51→20:27)
[2023-03-14] MEDS: LEVOTHYROXINE 75 MCG TAB PO SCH (06:00)
[2023-03-14] MEDS: BENZONATATE 100 MG CAP PO PRN ×2 (06:00→16:20)
[2023-03-14] MEDS: prednisoLONE ACETATE 1% OPHTH DROPS 5 ML BTL LEFT EYE SCH ×3 (08:07→20:18)
[2023-03-14] MEDS: MOXIFLOXACIN HCL 0.5% DROPS 3 ML BTL LEFT EYE SCH ×3 (08:07→20:18)
[2023-03-14] MEDS: KETOROLAC 0.5% OPHTH DROPS 5 ML BTL LEFT EYE SCH ×3 (08:07→20:18)
[2023-03-14] MEDS: MELOXICAM 7.5 MG TAB PO SCH (08:08)
[2023-03-14] MEDS: guaiFENesin 600 MG TABLET.ER PO SCH ×2 (08:08→20:17)
[2023-03-14] MEDS: ENOXAPARIN 40 MG/0.4 ML SYRINGE SQ SCH (08:08)
[2023-03-14] MEDS: OXYBUTYNIN 10 MG TAB.ER.24 PO SCH (08:08)
[2023-03-14] MEDS: PANTOPRAZOLE 40 MG TABLET PO SCH (08:08)
[2023-03-14] MEDS: busPIRone HCl 5 MG TAB PO SCH ×3 (08:08→20:17)
[2023-03-14] MEDS: DIVALPROEX 250 MG TABLET.DR PO SCH (08:09)
[2023-03-14] MEDS: GABAPENTIN 400 MG CAP PO SCH ×3 (08:09→20:17)
[2023-03-14] MEDS: DULoxetine HCL 60 MG CAPSULE.DR PO SCH (08:09)
[2023-03-14] MEDS: predniSONE 20 MG TAB PO SCH (08:09)
[2023-03-14] MEDS: DOXYCYCLINE 100 MG CAP PO SCH (08:09)
[2023-03-14] MEDS: LITHIUM CARBONATE 300 MG PO SCH ×2 (09:02→20:06)
[2023-03-14] MEDS: OXcarbazepine 150 MG TAB PO SCH ×2 (09:04→20:27)
[2023-03-14] MEDS: SYMBICORT 160-4.5 MCG INHALER INHALATION SCH ×2 (09:44→22:36)
[2023-03-14] MEDS: IPRATROPIUM-ALBUTEROL 3 ML NEB INHALATION SCH ×4 (09:45→22:36)
[2023-03-14 09:56] LABS: BUN/Creat Ratio 19.89 Ratio (12.00-20.00); Blood Urea Nitrogen 17.9 mg/dL (9.0-27.0); Calcium 9.5 mg/dL (8.7-10.3); Carbon Dioxide 21.4 mmol/L (21.6-31.8); Chloride 107 mmol/L (96-109); Glucose 104 mg/dL (70-110); Magnesium 2.4 mg/dL (1.5-2.4); Potassium 4.1 mmol/L (3.5-5.5); Sodium 140 mmol/L (135-145)
[2023-03-14 10:04] LABS: Basophils # (A) 0.02 X 10*3/uL (0.00-0.10); Basophils % (A) 0.2 %; Eosinophils # (A) 0.05 X 10*3/uL (0.04-0.35); Eosinophils % (A) 0.5 %; HCT 29.8 % (37.2-46.3); HGB 9.3 g/dL (12.0-15.0); Lymphocytes # (A) 3.41 X 10*3/uL (0.90-5.00); Lymphocytes % (A) 32.8 %; MCH 28.5 pg (27.0-32.0); MCHC 31.2 g/dL (32.0-37.0); MCV 91.4 FL (80.0-97.0); Mean Platelet Volume 10.3 FL (9.5-12.2); Monocytes # (A) 0.62 X 10*3/uL (0.20-1.00); NRBC Per 100 WBC 0 X 10*3/uL (0.00-0.01); Neutrophils # (A) 6.22 X 10*3/uL (1.80-7.70); Neutrophils % (A) 59.8 %; Platelet Count 378 X 10*3/uL (140-440); RBC 3.26 X 10*6/uL (4.10-5.20); RDW 17.2 % (11.5-14.5); WBC 10.39 X 10*3/uL (4.50-10.00)
--- NOTE | 2023-03-14 12:13 | P.PN ---
Subjective Progress Note Date: 03/14/23 No new complaints today. Gen: in no apparent distress, resting comfortably in bed Eyes: PERRL, no scleral injection or icterus HENT: normocephalic, atraumatic, good hearing acuity, moist mucous membranes Neck: no tracheal deviation, full range of motion Resp: Diffuse wheezing CVS: good distal perfusion x 4, no pitting edema GI: soft, NTTP, ND, no hepatosplenomegaly : no suprapubic tenderness, no CVAT, nichols catheter not present MSK: no clubbing, no cyanosis, no noted contractures of extremities Skin: no noted rashes, petechiae; temperature of skin is appropriate Neuro: moving all extremities without signs of weakness, CN II-XII intact Psych: cooperative, euthymic mood, insight and judgment intact Hospital Course: 68 year old woman with history of COPD, seizure disorder, HTN, PTSD, bipolar disorder presented for evaluation of dyspnea. In the Emergency Room, patient was afebrile, 123 or 59, heart rate 82, 94% on 2 L nasal cannula. CBC showed anemia done at 10.5. Basic metabolic panel showed CO2 of 20. Liver function tests are unremarkable. BNP was 265, troponin was less than 0.012. Influenza A, B, RSV, Covid were negative. Coags were unremarkable. Chest x-ray shows chronic left basilar opacity with mild central vascular congestion. EKG shows sinus rhythm with left axis deviation. Assessment/plan: Acute hypoxemic respiratory failure COPD exacerbation -Admit to observation -Pulmonology consult -DuoNeb's every 4 hours -Prednisone 40 minutes daily -Doxycycline twice a day discontinued due to low procalcitonin Seizure disorder Hypertension PTSD Bipolar disorder -Home medications reviewed and reconciled Patient is full code Objective - Vital Signs Vital signs: Vital Signs Temp 97.8 F 03/14/23 07:02 Pulse 90 03/14/23 11:44 Resp 18 03/14/23 07:02 BP 104/67 03/14/23 07:02 Pulse Ox 93 L 03/14/23 07:02 FiO2 Intake & Output 03/13/23 03/14/23 03/14/23 18:59 06:59 18:59 Intake Total 340 Balance 340 Intake: Oral 340 Other: # Voids 3 3 2 - Labs CBC & Chem 7: 03/14/23 06:29 03/14/23 06:29 Labs: Abnormal Lab Results - Last 24 Hours (Table) 03/13/23 03/14/23 03/14/23 Range/Units 05:49 06:29 06:29 WBC 10.39 H (4.50-10.00) X 10*3/uL RBC 3.26 L (4.10-5.20) X 10*6/uL Hgb 9.3 L (12.0-15.0) g/dL Hct 29.8 L (37.2-46.3) % MCHC 31.2 L (32.0-37.0) g/dL RDW 17.2 H (11.5-14.5) % Immature Gran # 0.07 H (0.00-0.04) X 10*3/uL Carbon Dioxide 21.4 L (21.6-31.8) mmol/L Vitamin D 25-Hydroxy 27.7 L (30.0-100.0) ng/mL
--- NOTE | 2023-03-14 13:20 | P.PN ---
Subjective Progress Note Date: 03/14/23 This is a pleasant 68-year-old female patient with a known history of chronic obstructive pulmonary disease, former smoker, bipolar disorder, PTSD, hypothyroidism, seizure disorder who presented here to the emergency room early this morning with a 3 to four-day history of increasing shortness of breath co ugh congestion wheezing. She had recently been in [place] 3-4 weeks ago visiting her mom and ended up in the hospital there for 6 days for similar episode. As x-ray today reveals chronic left basilar opacities favoring scarring. Mild central vascular congestion suspected. Possible fluid volume overload. Count 9.5. Hemoglobin 10.5. Platelets 374. Sodium 141 potassium 3.8. Bicarb 20. BUN 16. Creatinine 0.79. Glucose 106. AST 18. ALT 12. ProBNP 265. Troponin negative 1. Viral screen negative. Initiated on DuoNeb inhalations, Symbicort, prednisone. Empiric antibiotics in the form of Vibramycin. Pro-calcitonin pending. She is seen in the emergency department. Currently sitting up in a stretcher. Awake and alert in no acute distress. Maintaining O2 saturations in the 90s on room air. She's afebrile. Hemodynamically stable. The patient is seen today 03/13/2023 in follow-up on the regular medical floor. She is currently sitting up in the bedside. Awake and alert in no acute distress. Doing a bit better today compared to yesterday. Still with a loose nonproductive cough. Still dyspneic with conversation. Dyspneic with minimal exertion. Count 19.4. Hemoglobin 9.9. Sodium 139. Potassium 4.1. Bicarb 21 BUN 21. Creatinine 0.73. Pro-calcitonin was negative at 0.05. She remains on DuoNeb inhalations, Symbicort, prednisone. Lovenox for DVT prophylaxis. Empiric antibiotics in the form of Vibramycin. Tessalon Perles and Mucinex for her cough. The patient is seen today 03/14/2023 in follow-up on the regular medical floor. Currently resting comfortably in bed. Awake and alert in no acute distress. Doing a bit better today compared to yesterday. Not quite back to her baseline. Still she continues with a dry nonproductive cough. Some dyspnea on exertion. Maintaining O2 saturations in the 90s on room air. She's been afebrile. Hemodynamically stable. White count 10.3. Hemoglobin 9.3. Platelets 378. Sodium 140. Potassium 4.1. Bicarb 21. BUN 18. Creatinine 0.9. Glucose 104. She is continued on bronchodilators, steroids, Mucinex. Remains on Lovenox for DVT prophylaxis. Pro-calcitonin was negative at 0.05. Antibiotics were discontinued. Objective - Vital Signs Vital signs: Vital Signs Temp 97.8 F 03/14/23 07:02 Pulse 90 03/14/23 11:44 Resp 18 03/14/23 07:02 BP 104/67 03/14/23 07:02 Pulse Ox 93 L 03/14/23 07:02 FiO2 Intake & Output 03/13/23 03/14/23 03/14/23 18:59 06:59 18:59 Intake Total 340 Balance 340 Intake: Oral 340 Other: # Voids 3 3 2 - Exam GENERAL EXAM: Alert, active, 68-year-old female, on room air, in no apparent distress. HEAD: Normocephalic. EYES: Normal reaction of pupils, equal size. NOSE: Clear with pink turbinates. THROAT: No erythema or exudates. NECK: No masses, no JVD. CHEST: No chest wall deformity. LUNGS: Equal air entry with bilateral scattered rhonchi. CVS: S1 and S2 normal with no audible murmur, regular rhythm. ABDOMEN: No hepatosplenomegaly, normal bowel sounds, no guarding or rigidity. SPINE: No scoliosis or deformity SKIN: No rashes CENTRAL NERVOUS SYSTEM: No focal deficits, tone is normal in all 4 extremities. EXTREMITIES: There is no peripheral edema. No clubbing, no cyanosis. Peripheral pulses are intact. - Labs CBC & Chem 7: 03/14/23 06:29 03/14/23 06:29 Labs: Abnormal Lab Results - Last 24 Hours (Table) 03/13/23 03/14/23 03/14/23 Range/Units 05:49 06:29 06:29 WBC 10.39 H (4.50-10.00) X 10*3/uL RBC 3.26 L (4.10-5.20) X 10*6/uL Hgb 9.3 L (12.0-15.0) g/dL Hct 29.8 L (37.2-46.3) % MCHC 31.2 L (32.0-37.0) g/dL RDW 17.2 H (11.5-14.5) % Immature Gran # 0.07 H (0.00-0.04) X 10*3/uL Carbon Dioxide 21.4 L (21.6-31.8) mmol/L Vitamin D 25-Hydroxy 27.7 L (30.0-100.0) ng/mL Assessment and Plan Assessment: Acute exacerbation of chronic obstructive pulmonary disease complicated by left lower lobe possible early pneumonia. Viral screen negative. Pro-calcitonin negative History of chronic obstructive pulmonary disease Former smoker History of bipolar disorder History of posttraumatic stress disorder History of seizure disorder History of hypothyroidism History of vocal cord injury secondary to previous neck surgery Plan: The patient was seen and evaluated Labs and medications reviewed Procalcitonin was negative Antibiotics discontinued Continue bronchodilators, steroids Probable discharge in the a.m. We will continue to follow I have personally seen and examined the patient, performed the documentation and the assessment and plan as written. Number of minutes spent on the visit: 10.
[2023-03-14] MEDS: traZODone HCL 50 MG TAB PO SCH (20:17)
[2023-03-14] MEDS: QUEtiapine 400 MG TAB PO SCH (20:17)
[2023-03-14 23:38] VITALS: RESP 18
[2023-03-15] MEDS: HYDROcodone/APAP 5-325MG 1 EACH TAB PO PRN ×4 (02:03→14:27)
[2023-03-15] MEDS: BENZONATATE 100 MG CAP PO PRN (03:38)
[2023-03-15] MEDS: BUTALB/APAP/CAFF 50-325-40MG TAB PO PRN (03:38)
[2023-03-15] MEDS: LEVOTHYROXINE 75 MCG TAB PO SCH (05:31)
[2023-03-15] MEDS: guaiFENesin 600 MG TABLET.ER PO SCH (08:17)
[2023-03-15] MEDS: PANTOPRAZOLE 40 MG TABLET PO SCH (08:17)
[2023-03-15] MEDS: MELOXICAM 7.5 MG TAB PO SCH (08:17)
[2023-03-15] MEDS: busPIRone HCl 5 MG TAB PO SCH (08:17)
[2023-03-15] MEDS: OXYBUTYNIN 10 MG TAB.ER.24 PO SCH (08:17)
[2023-03-15] MEDS: DIVALPROEX 250 MG TABLET.DR PO SCH (08:17)
[2023-03-15] MEDS: predniSONE 20 MG TAB PO SCH (08:18)
[2023-03-15] MEDS: DULoxetine HCL 60 MG CAPSULE.DR PO SCH (08:18)
[2023-03-15] MEDS: ENOXAPARIN 40 MG/0.4 ML SYRINGE SQ SCH (08:18)
[2023-03-15] MEDS: GABAPENTIN 400 MG CAP PO SCH (08:18)
[2023-03-15] MEDS: LITHIUM CARBONATE 300 MG PO SCH (08:19)
[2023-03-15] MEDS: OXcarbazepine 150 MG TAB PO SCH (08:19)
[2023-03-15] MEDS: prednisoLONE ACETATE 1% OPHTH DROPS 5 ML BTL LEFT EYE SCH (08:26)
[2023-03-15] MEDS: KETOROLAC 0.5% OPHTH DROPS 5 ML BTL LEFT EYE SCH (08:26)
[2023-03-15] MEDS: MOXIFLOXACIN HCL 0.5% DROPS 3 ML BTL LEFT EYE SCH (08:27)
[2023-03-15] MEDS: IPRATROPIUM-ALBUTEROL 3 ML NEB INHALATION SCH ×3 (09:27→12:45)
[2023-03-15] MEDS: SYMBICORT 160-4.5 MCG INHALER INHALATION SCH (09:27)
--- NOTE | 2023-03-15 11:59 | P.DS ---
Providers Date of admission: 03/12/23 10:21 Expected date of discharge: 03/15/23 Attending physician: Leo Givens MD Consults: 03/12/23 10:46 Consult Physician Routine Consulting Provider: Yo Hoffman Consult Reason/Comments: COPD exacerbation Do you want consulting provider notified?: Yes Primary care physician: [facility] Course: Acute hypoxemic respiratory failure COPD exacerbation Seizure disorder Hypertension PTSD Bipolar disorder Gen: in no apparent distress, resting comfortably in bed Eyes: PERRL, no scleral injection or icterus HENT: normocephalic, atraumatic, good hearing acuity, moist mucous membranes Neck: no tracheal deviation, full range of motion Resp: Diffuse wheezing CVS: good distal perfusion x 4, no pitting edema GI: soft, NTTP, ND, no hepatosplenomegaly : no suprapubic tenderness, no CVAT, nichols catheter not present MSK: no clubbing, no cyanosis, no noted contractures of extremities Skin: no noted rashes, petechiae; temperature of skin is appropriate Neuro: moving all extremities without signs of weakness, CN II-XII intact Psych: cooperative, euthymic mood, insight and judgment intact Hospital Course: 68 year old woman with history of COPD, seizure disorder, HTN, PTSD, bipolar disorder presented for evaluation of dyspnea. In the Emergency Room, patient was afebrile, 123 or 59, heart rate 82, 94% on 2 L nasal cannula. CBC showed anemia done at 10.5. Basic metabolic panel showed CO2 of 20. Liver function tests are unremarkable. BNP was 265, troponin was less than 0.012. Influenza A, B, RSV, Covid were negative. Coags were unremarkable. Chest x-ray shows chronic left basilar opacity with mild central vascular congestion. EKG shows sinus rhythm with left axis deviation. Pt was admitted for COPD exacerbation. Treated successfully with nebulizers and steroids. Discharged home with 5 days total of steroids. Pulmonology referral sent for clinic f/u. Procalcitonin was checked and low - pt discharged without abx. I spent 32 minutes coordinating this discharge on 03/15 Patient Condition at Discharge: Fair Plan - Discharge Summary Discharge Rx Participant: Yes New Discharge Prescriptions: New predniSONE [Deltasone] 40 mg PO DAILY 2 Days #4 tab Butalb/APAP/Caff 50-325-40Mg [Fioricet 50-325-40] 1 each PO Q8HR PRN #15 tab PRN Reason: Headache Budesonide-Formot 160-4.5 Mcg [Symbicort 160-4.5 Mcg Inhaler] 2 puff INHALATION RT-BID #1 each Acetaminophen Tab [Tylenol] 650 mg PO Q6HR PRN tab PRN Reason: Mild Pain (Scale 1 To 3) Continue Ibuprofen [Motrin] 600 mg PO Q6HR PRN PRN Reason: Pain Ketorolac 0.5% Ophth Soln [Acular 0.5%] 1 drop LEFT EYE TID [place] Carbonate [[place] Carbonate ER] 300 mg PO BID Moxifloxacin HCl [Moxifloxacin 0.5%] 1 drop LEFT EYE TID traZODone HCL [Desyrel] 150 mg PO HS #90 tab QUEtiapine [SEROquel] 400 mg PO HS #30 tab oxyBUTYnin chloride [Ditropan XL] 10 mg PO DAILY Divalproex [Depakote] 250 mg PO DAILY busPIRone HCL 15 mg PO TID Celecoxib [CeleBREX] 200 mg PO BID DULoxetine HCL [Cymbalta] 60 mg PO DAILY Gabapentin [Neurontin] 800 mg PO TID Levothyroxine Sodium [Synthroid] 75 mcg PO DAILY Pantoprazole [Protonix] 40 mg PO DAILY prednisoLONE ACETATE 1% OPHTH [Pred Forte 1%] 1 drop LEFT EYE TID OXcarbazepine [Trileptal] 150 mg PO BID #60 tab HYDROcodone/APAP 5-325MG [[place] 5-325] 1 tab PO Q6HR PRN PRN Reason: Pain Discharge Medication List oxyBUTYnin chloride [Ditropan XL] 10 mg PO DAILY 06/11/20 [History] Divalproex [Depakote] 250 mg PO DAILY 08/15/21 [History] Celecoxib [CeleBREX] 200 mg PO BID 02/26/23 [History] DULoxetine HCL [Cymbalta] 60 mg PO DAILY 02/26/23 [History] Gabapentin [Neurontin] 800 mg PO TID 02/26/23 [History] Ibuprofen [Motrin] 600 mg PO Q6HR PRN 02/26/23 [History] Ketorolac 0.5% Ophth Soln [Acular 0.5%] 1 drop LEFT EYE TID 02/26/23 [History] Levothyroxine Sodium [Synthroid] 75 mcg PO DAILY 02/26/23 [History] [place] Carbonate [[place] Carbonate ER] 300 mg PO BID 02/26/23 [History] Moxifloxacin HCl [Moxifloxacin 0.5%] 1 drop LEFT EYE TID 02/26/23 [History] Pantoprazole [Protonix] 40 mg PO DAILY 02/26/23 [History] busPIRone HCL 15 mg PO TID 02/26/23 [History] prednisoLONE ACETATE 1% OPHTH [Pred Forte 1%] 1 drop LEFT EYE TID 02/26/23 [History] OXcarbazepine [Trileptal] 150 mg PO BID #60 tab 02/27/23 [Rx] QUEtiapine [SEROquel] 400 mg PO HS #30 tab 02/27/23 [Rx] traZODone HCL [Desyrel] 150 mg PO HS #90 tab 02/27/23 [Rx] HYDROcodone/APAP 5-325MG [[place] 5-325] 1 tab PO Q6HR PRN 03/12/23 [History] Acetaminophen Tab [Tylenol] 650 mg PO Q6HR PRN tab 03/15/23 [Rx] Budesonide-Formot 160-4.5 Mcg [Symbicort 160-4.5 Mcg Inhaler] 2 puff INHALATION RT-BID #1 each 03/15/23 [Rx] Butalb/APAP/Caff 50-325-40Mg [Fioricet 50-325-40] 1 each PO Q8HR PRN #15 tab 03/15/23 [Rx] predniSONE [Deltasone] 40 mg PO DAILY 2 Days #4 tab 03/15/23 [Rx] Follow up Appointment(s)/Referral(s): Yo Hoffman MD [STAFF PHYSICIAN] - 04/07/23 8:30 am Azam Self DO [Primary Care Provider] - 1-2 days Patient Instructions/Handouts: COPD (Chronic Obstructive Pulmonary Disease) (DC), Chronic Lung Disease and Infection Prevention (DC) Discharge Disposition: HOME SELF-CARE
[2023-03-15 14:47] VITALS: BP 108/67; PULSE 90; TEMP 98.3
--- NOTE | 2023-03-15 15:11 | P.PN ---
Subjective Progress Note Date: 03/15/23 Principal diagnosis: COPD exacerbation. This is a pleasant 68-year-old female patient with a known history of chronic obstructive pulmonary disease, former smoker, bipolar disorder, PTSD, hypothyroidism, seizure disorder who presented here to the emergency room early this morning with a 3 to four-day history of increasing shortness of breath cough congestion wheezing. She had recently been in [place] 3-4 weeks ago visiting her mom and ended up in the hospital there for 6 days for similar episode. As x-ray today reveals chronic left basilar opacities favoring scarring. Mild central vascular congestion suspected. Possible fluid volume overload. Count 9.5. Hemoglobin 10.5. Platelets 374. Sodium 141 potassium 3.8. Bicarb 20. BUN 16. Creatinine 0.79. Glucose 106. AST 18. ALT 12. ProBNP 265. Troponin negative 1. Viral screen negative. Initiated on DuoNeb inhalations, Symbicort, prednisone. Empiric antibiotics in the form of Vibramycin. Pro-calcitonin pending. She is seen in the emergency department. Currently sitting up in a stretcher. Awake and alert in no acute distress. Maintaining O2 saturations in the 90s on room air. She's afebrile. Hemodynamically stable. The patient is seen today 03/13/2023 in follow-up on the regular medical floor. She is currently sitting up in the bedside. Awake and alert in no acute distress. Doing a bit better today compared to yesterday. Still with a loose nonproductive cough. Still dyspneic with conversation. Dyspneic with minimal exertion. Count 19.4. Hemoglobin 9.9. Sodium 139. Potassium 4.1. Bicarb 21 BUN 21. Creatinine 0.73. Pro-calcitonin was negative at 0.05. She remains on DuoNeb inhalations, Symbicort, prednisone. Lovenox for DVT prophylaxis. Empiric antibiotics in the form of Vibramycin. Tessalon Perles and Mucinex for her cough. The patient is seen today 03/14/2023 in follow-up on the regular medical floor. Currently resting comfortably in bed. Awake and alert in no acute distress. Doing a bit better today compared to yesterday. Not quite back to her baseline. Still she continues with a dry nonproductive cough. Some dyspnea on exertion. Maintaining O2 saturations in the 90s on room air. She's been afebrile. Hemodynamically stable. White count 10.3. Hemoglobin 9.3. Platelets 378. Sodium 140. Potassium 4.1. Bicarb 21. BUN 18. Creatinine 0.9. Glucose 104. She is continued on bronchodilators, steroids, Mucinex. Remains on Lovenox for DVT prophylaxis. Pro-calcitonin was negative at 0.05. Antibiotics were discontinued. Progress note dated 03/15/2023. This is a 68-year-old female seen today in room 41. The patient was minute with a diagnosis of COPD exacerbation. She's currently on room air. Her pro- calcitonin level was 0.05. She's not receiving any IV fluids. She sees Dr. Self, and Bettye. No new lab data today. Labs from March 14 are reviewed. Objective - Vital Signs Vital signs: Vital Signs Temp 98.3 F 03/15/23 14:00 Pulse 90 03/15/23 14:00 Resp 18 03/15/23 02:00 BP 108/67 03/15/23 14:00 Pulse Ox 95 03/15/23 14:00 FiO2 Intake & Output 03/14/23 03/15/23 03/15/23 18:59 06:59 18:59 Intake Total 980 600 720 Balance 980 600 720 Intake: Oral 980 600 720 Other: # Voids 3 3 - Exam No acute distress, oriented 3. Currently on room air. No respiratory distress. Saturations are 95%. HEENT examination is grossly unremarkable. Mucous membranes are moist. No oral lesions. Neck supple. Full range of motion. No adenopathy thyromegaly or neck vein distention. Cardiovascular examination reveals regular rhythm rate. S1-S2 normal. No S3 or S4. No discernible murmur noted. Heart sounds are distant. Heart rate 90 bpm. Lungs reveal scattered rhonchi. No wheezes or crackles. Breath sounds are equal bilaterally. Abdomen soft bowel sounds are heard. No masses or tenderness. Extremities are intact. No cyanosis clubbing or edema. Skin is without rash or lesion. Neurologic examination is brief but nonfocal. - Labs CBC & Chem 7: 03/14/23 06:29 03/14/23 06:29 Assessment and Plan Assessment: Acute exacerbation of chronic obstructive pulmonary disease complicated by left lower lobe possible early pneumonia. Viral screen negative. Pro-calcitonin negative. History of chronic obstructive pulmonary disease. Former smoker. History of bipolar disorder. History of posttraumatic stress disorder. History of seizure disorder. History of hypothyroidism. History of vocal cord injury secondary to previous neck surgery. Plan: Plan dated 03/15/2023. The patient appears to be doing relatively well. She seen today in room 481. She is on room air. She's not receiving any IV fluids. She'll follow-up with her primary care physician. Her pro-calcitonin level was 0.05. Labs, x-rays, medications are reviewed. Prognosis is guarded. Time with Patient: Less than 30
== END 2023-03-15 14:54 | disposition home or self-care (01) ==
LOC: EC 07:52 → 4SSUR 10:21
PROVIDERS: ADMIT Student in an Organized Health Care Education/Training Program; ATTEND Student in an Organized Health Care Education/Training Program
DX: J96.01 Acute respiratory failure with hypoxia (principal); J44.1 Chronic obstructive pulmonary disease with (acute) exacerbation; J81.1 Chronic pulmonary edema; I10 Essential (primary) hypertension; G47.30 Sleep apnea, unspecified; G89.29 Other chronic pain; E03.9 Hypothyroidism, unspecified; F31.9 Bipolar disorder, unspecified; F43.10 Post-traumatic stress disorder, unspecified; G40.909 Epilepsy, unspecified, not intractable, without status epilepticus; Z20.822 Contact with and (suspected) exposure to COVID-19; Z86.73 Personal history of transient ischemic attack (TIA), and cerebral infarction without residual deficits; Z87.891 Personal history of nicotine dependence; Z79.1 Long term (current) use of non-steroidal anti-inflammatories (NSAID); Z79.890 Hormone replacement therapy; Z79.899 Other long term (current) drug therapy; Z91.040 Latex allergy status
CPT/HCPCS: 96361; 96372 ×3; 96374; 99285; 36415; 94640 ×7; 94760; 93005; 83880; 80053; 80048 ×2; 83605; 83735 ×3; 84484; 85025 ×3; 85610; 85730; 82306; 84145; 87636; 71046; G0378 ×4; J2930; J1650 ×3; J7512 ×3

== ENCOUNTER 2023-07-06 21:56 | Emergency (ER) | payer MEDICARE ==
[2023-07-06] MEDS: HYDROcodone/APAP 10-325MG 1 EACH TAB PO ONE (22:56)
--- NOTE | 2023-07-06 23:04 | ED ---
General Adult HPI - General Chief complaint: Fall Stated complaint: Fall Time Seen by Provider: 07/06/23 22:42 Source: patient, RN notes reviewed, old records reviewed Mode of arrival: EMS - History of Present Illness Initial comments: Patient is a 68-year-old female who presents emergency department complaining of a fall. Has a history of chronic pain. Is chronically on [place]. Presents in her own soft collar. Has a history of what she describes as a broken left ankle however is due to get surgery in [place] where her pain specialist is. Is out of her [place]. Fell yesterday and struck her head on a rock. Denies loss consciousness. Is not on blood thinners. Decided present today due to continued pain. Only [place] 10 helps with her pain control. Denies any chest pain or abdominal pain. Endorses chronic back pain. No other acute complaints at this time. No other obvious injuries. Presents for further evaluation. - Related Data Home Medications Medication Instructions Recorded Confirmed oxyBUTYnin chloride [Ditropan XL] 10 mg PO DAILY 06/11/20 03/12/23 Divalproex [Depakote] 250 mg PO DAILY 08/15/21 03/12/23 Celecoxib [CeleBREX] 200 mg PO BID 02/26/23 03/12/23 DULoxetine HCL [Cymbalta] 60 mg PO DAILY 02/26/23 03/12/23 Gabapentin [Neurontin] 800 mg PO TID 02/26/23 03/12/23 Ibuprofen [Motrin] 600 mg PO Q6HR PRN 02/26/23 03/12/23 Ketorolac 0.5% Ophth Soln [Acular 1 drop LEFT EYE TID 02/26/23 03/12/23 0.5%] Levothyroxine Sodium [Synthroid] 75 mcg PO DAILY 02/26/23 03/12/23 [place] Carbonate [[place] 300 mg PO BID 02/26/23 03/12/23 Carbonate ER] Moxifloxacin HCl [Moxifloxacin 1 drop LEFT EYE TID 02/26/23 03/12/23 0.5%] Pantoprazole [Protonix] 40 mg PO DAILY 02/26/23 03/12/23 busPIRone HCL 15 mg PO TID 02/26/23 03/12/23 prednisoLONE ACETATE 1% OPHTH 1 drop LEFT EYE TID 02/26/23 03/12/23 [Pred Forte 1%] HYDROcodone/APAP 5-325MG [[place] 1 tab PO Q6HR PRN 03/12/23 03/12/23 5-325] Previous Rx's Medication Instructions Recorded OXcarbazepine [Trileptal] 150 mg PO BID #60 tab 02/27/23 QUEtiapine [SEROquel] 400 mg PO HS #30 tab 02/27/23 traZODone HCL [Desyrel] 150 mg PO HS #90 tab 02/27/23 Acetaminophen Tab [Tylenol] 650 mg PO Q6HR PRN tab 03/15/23 Budesonide-Formot 160-4.5 Mcg 2 puff INHALATION RT-BID #1 each 03/15/23 [Symbicort 160-4.5 Mcg Inhaler] Butalb/APAP/Caff 50-325-40Mg 1 each PO Q8HR PRN #15 tab 03/15/23 [Fioricet 50-325-40] predniSONE [Deltasone] 40 mg PO DAILY 2 Days #4 tab 03/15/23 HYDROcodone/APAP 10-325MG [[place] 1 tab PO Q6HR PRN 6 Days #24 tab 07/07/23 10-325] Allergies Allergy/AdvReac Type Severity Reaction Status Date / Time latex Allergy Unknown Rash/Hives Verified 07/06/23 22:09 Review of Systems ROS Statement: Those systems with pertinent positive or pertinent negative responses have been documented in the HPI. Review of Systems: CONST: Denies fever EYES: Denies blurry vision ENT: Denies nasal congestion C/V: Denies Chest pain RESP: Denies shortness of breath GI: Denies abdominal pain : Denies dysuria SKIN: Denies rash. MSK: Endorses endorses ankle pain NEURO: endorses headache ROS Other: All systems not noted in ROS Statement are negative. Past Medical History Past Medical History: COPD, CVA/TIA, Fibromyalgia, Hypertension, Seizure Disorder, Sleep Apnea/CPAP/BIPAP, Thyroid Disorder Additional Past Medical History / Comment(s): Chronic pain mostly in neck/low back, chronic aspirin user -was taking 4-8 tablets a day for about 40 years but had accidental aspirin overdose in August 2019-ended up going into kidney failure and having to have dialysis in ICU-went to [facility] and started having seizures and hypertensive emergency-sent to [facility] and diagnosed with PRES encephalopathy, pt states CVA 08/2019 with memory problems/word finding problems/slow speech and occasional slurred speech, eating disorder, iron anemia, bronchitis, sinus problems, IBS, UTI with sepsis, hypothyroid, migraines. History of Any Multi-Drug Resistant Organisms: MRSA, VRE Date of last positivie culture/infection: 08/29/21-VRE; 2004 MRSA 12/06/04 MDRO Source:: VRE-Urine; MRSA- Unknown Past Surgical History: Back Surgery, Tonsillectomy Additional Past Surgical History / Comment(s): Cervical and low back surgery Past Anesthesia/Blood Transfusion Reactions: No Reported Reaction Past Psychological History: Anxiety, Bipolar, Depression, PTSD Smoking Status: Former smoker Past Alcohol Use History: None Reported Past Drug Use History: None Reported - Past Family History Sister(s) Family Medical History: Cancer, Renal Disease Additional Family Medical History / Comment(s): breast cancer, kidney cancer Mother Family Medical History: Cancer, Hypertension Additional Family Medical History / Comment(s): breast Father Additional Family Medical History / Comment(s): Father of a cardiac arrest. General Exam - General Exam Comments Initial Comments: General: Appears in no acute distress. HEAD: Normal with no signs of head trauma. EYES: PERRLA, EOMI, conjunctiva normal, no discharge. Pulls 3 mm and equal bilaterally. ENT: Hearing grossly intact, normal oropharynx. RESPIRATORY: Clear breath sounds bilaterally. No wheezes, rales, or rhonchi. C/V: Regular rate and rhythm. S1 and S2 auscultated,peripheral pulses 2+ and intact throughout ABD: Abd is soft, nontender, nondistended EXT: Normal range of motion, no obvious deformity. No significant midline step- offs deformities or pain of cervical, thoracic, lumbar spine. Hugh is stable. Ankles are mildly painful but seem to have right normal range of motion. No new injury to left ankle from patient. SKIN: No rashes or lesions observed on exposed skin. NEURO: Alert and oriented x 4. NIH is 0. GCS 15. No focal deficits. Course Vital Signs 07/06/23 07/07/23 22:03 03:14 Temperature 98.3 F 98.1 F Pulse Rate 90 69 Respiratory 18 16 Rate Blood Pressure 126/71 127/68 O2 Sat by Pulse 96 95 Oximetry Procedures - Orthopedic Splinting/Casting Injury #1 Side: right Lower Extremity Injury Location: short leg Lower Extremity Immobilizer: stirrup splint Other Orthopedic Equipment: crutches Additional Comments: neurovascularly intact following splinting. Medical Decision Making - Medical Decision Making Was pt. sent in by a medical professional or institution (, PA, MULTI CARE TECHNICIAN, urgent care, hospital, or fpc...) When possible be specific @ -No Did you speak to anyone other than the patient for history (EMS, parent, family, police, friend...)? What history was obtained from this source @ -No Did you review nursing and triage notes (agree or disagree)? Why? @ -I reviewed and agree with nursing and triage notes Were old charts reviewed (outside hosp., previous admission, EMS record, old EKG, old radiological studies, urgent care reports/EKG's, fpc records)? Report findings @ -Old charts reviewed Differential Diagnosis (chest pain, altered mental status, abdominal pain women, abdominal pain men, vaginal bleeding, weakness, fever, dyspnea, syncope, headache, dizziness, GI bleed, back pain, seizure, CVA, palpatations, mental hea lth, musculoskeletal)? @ -Differential Musculoskeletal Muscular strain, contusion, ligament sprain, fracture, arthritis, septic arthritis, bursitis, cellulitis, muscle spasm, nerve compression, DVT, arterial occlusion, herpes zoster, electrolyte abnormality, tumor.... This is not meant to be in all inclusive list EKG interpreted by me (3pts min.). @ -None done X-rays interpreted by me (1pt min.). @ -Ankle x-rays reveal bilateral ankle fractures of the distal fibula. Left ankle has an ATFL avulsion fracture while right ankle has a nondisplaced fracture of the distal fibula Givens B fracture. CT interpreted by me (1pt min.). @ -CT brain, C-spine negative for any obvious acute injury. U/S interpreted by me (1pt. min.). @ -None done What testing was considered but not performed or refused? (CT, X-rays, U/S, labs)? Why? @ -None What meds were considered but not given or refused? Why? @ -None Did you discuss the management of the patient with other professionals (professionals i.e. , PA, MULTI CARE TECHNICIAN, lab, RT, psych nurse, social media campaign manager, medical support specialist, teacher, parking enforcement officer, lining caser)? Give summary @ -Discussed the case with on-call orthopedic physician Dr. Cintron. States that the ATFL avulsion fracture is stable for ambulation on as long as patient has splint or walking boot. Patient does have a walking boot at home. Splint will be applied. Recommended nonweightbearing on the Givens B fracture on the right ankle. Was smoking cessation discussed for >3mins.? @ -No Was critical care preformed (if so, how long)? @ -No Were there social determinants of health that impacted care today? How? (Homelessness, low income, unemployed, alcoholism, drug addiction, transportation, low edu. Level, literacy, decrease access to med. care, senior living, rehab)? @ -No Was there de-escalation of care discussed even if they declined (Discuss DNR or withdrawal of care, Hospice)? DNR status @ -No What co-morbidities impacted this encounter? (DM, HTN, Smoking, COPD, CAD, Cancer, CVA, ARF, Chemo, Hep., AIDS, mental health diagnosis, sleep apnea, morbid obesity)? @ -None Was patient admitted / discharged? Hospital course, mention meds given and route, prescriptions, significant lab abnormalities, going to OR and other pertinent info. @ -Presents as a fall from 24 hours ago. Complaining of a headache, mild neck pain, as well as bilateral ankle pain. Has chronic pain and is post be on [place] but she ran out. Is requesting a refill of her [place] 10. Is not on blood thinners. No loss of conscious. CT brain and C-spine will be obtained as well as basic x-rays of the ankles. No other obvious injuries at this time. Presents on her own cervical collar as well as has a history of having her own splint for her left ankle which is injured and she is supposed have surgery for it. This is known for the patient. Presents for further evaluation at this time. Vital signs within acceptable limits. CT imaging unremarkable. Ankle x-rays reveal bilateral distal fibula fractures. Left ankle is a ATFL fracture. Right ankle has a distal fibula Givens B fracture. The left fibula fracture is known to the patient. The right fibula fracture is acute. Discussed the case with on-call orthopedic physician Dr. Cintron. States that the ATFL avulsion fracture is stable for ambulation on as long as patient has splint or walking boot, and this is a old injury compared to the more acute right fibula injury. Patient does have a walking boot at home. Splint will be applied. Recommended nonweightbearing on the Givens B fracture on the right ankle. Updated the patient regarding the plan. She was in agreement this plan. She does have a walker at home. She will be given crutches as well as a stirrup splint for the left ankle and she will be splinted on the right ankle. She will be given crutches. She can follow-up with orthopedics this week. She will be given a [place] prescription. She was in agreement this plan. Instructions non weight bearing on right ankle until ortho follow up. I will provide the patient with a prescription for [place] 10. I instructed the patient to follow up with their PCP in the next 1-3 days. I provided contact information for follow up with orthopedics. I explained that the patient should return to the emergency department if they experience any worsening symptoms. Strict return precautions were discussed with the patient. The patient expressed understanding of these instructions. I answered all questions that the patient had. The patient was discharged home in good condition with their prescriptions and follow up information. Undiagnosed new problem with uncertain prognosis? @ -No Drug Therapy requiring intensive monitoring for toxicity (Heparin, Nitro, Insulin, Cardizem)? @ -No Were any procedures done? @ -Splinting of the right lower extremity Diagnosis/symptom? @ -Fall, right distal fibula Givens B fracture Acute, or Chronic, or Acute on Chronic? @ -Acute Uncomplicated (without systemic symptoms) or Complicated (systemic symptoms)? @ -Uncomplicated Side effects of treatment? @ -None Exacerbation, Progression, or Severe Exacerbation] @ -No Poses a threat to life or bodily function? @ -Unlikely Diagnosis/symptom? @ -Left distal fibular fracture, ATFL avulsion fracture Acute, or Chronic, or Acute on Chronic? @ -Chronic Uncomplicated (without systemic symptoms) or Complicated (systemic symptoms)? @ -Uncomplicated Side effects of treatment? @ -None Exacerbation, Progression, or Severe Exacerbation] @ -No Poses a threat to life or bodily function? @ -Unlikely Disposition Clinical Impression: Fall, Fracture of distal fibula Disposition: HOME SELF-CARE Condition: Good Instructions (If sedation given, give patient instructions): Ankle Fracture (ED), Fall Prevention for Older Adults (ED) Prescriptions: HYDROcodone/APAP 10-325MG [[place] 10-325] 1 tab PO Q6HR PRN 6 Days #24 tab PRN Reason: Pain Is patient prescribed a controlled substance at d/c from ED?: No Referrals: Azam Self DO [Primary Care Provider] - 1-2 days Rivera Cintron MD [STAFF PHYSICIAN] - 1-2 days Time of Disposition: 01:41
--- NOTE | 2023-07-07 | CT ---
EXAM: CT Head Without Intravenous Contrast CLINICAL HISTORY: ITS.REASON CT Reason: fall TECHNIQUE: Axial computed tomography images of the head/brain without intravenous contrast. CTDI is 57.40 mGy and DLP is 1081.60 mGy-cm. This CT exam was performed using one or more of the following dose reduction techniques: automated exposure control, adjustment of the mA and/or kV according to patient size, and/or use of iterative reconstruction technique. COMPARISON: No relevant prior studies available. FINDINGS: Brain: Remote bilateral occipital ischemic injuries with encephalomalacia and gliosis. No hemorrhage. No significant white matter disease. No edema. Ventricles: Unremarkable. No ventriculomegaly. Bones/joints: Hyperostosis frontalis and temporalis interna. No acute fracture. Soft tissues: Unremarkable. Sinuses: Unremarkable as visualized. No acute sinusitis. Mastoid air cells: Unremarkable as visualized. No mastoid effusion. IMPRESSION: No evidence of acute intracranial pathology. EXAM: CT Cervical Spine Without Intravenous Contrast CLINICAL HISTORY: ITS.REASON CT Reason: fall TECHNIQUE: Axial computed tomography images of the cervical spine without intravenous contrast. CTDI is 16.20 mGy and DLP is 369.7 mGy-cm. This CT exam was performed using one or more of the following dose reduction techniques: automated exposure control, adjustment of the mA and/or kV according to patient size, and/or use of iterative reconstruction technique. COMPARISON: No relevant prior studies available. FINDINGS: Vertebrae: Status post anterior fusion of C4, C5, C6 and C7. No acute fracture. Discs/spinal canal/neural foramina: No acute findings. No spinal canal stenosis. Soft tissues: Unremarkable. IMPRESSION: No evidence of acute cervical spine pathology.
--- NOTE | 2023-07-07 00:53 | XR ---
ADDENDUM - Added by Dariel Hector MD on 07/07/2023 1:04 AM (-07:00) IMPRESSION: 1. Left ankle: ATFL avulsion fracture with fracture fragment measuring 11 x 6 mm. 2. Left ankle: Severe lateral soft tissue swelling. 3. Right ankle: Nondisplaced fracture of the distal fibula (Givens B). 4. Right ankle: Severe lateral soft tissue swelling. EXAM: XR Bilateral Ankles Complete, 3 or More Views CLINICAL HISTORY: ITS.REASON XR Reason: pain TECHNIQUE: Frontal, lateral and oblique views of the bilateral ankles. COMPARISON: No relevant prior studies available. FINDINGS: Bones/joints: ATFL avulsion fracture with fracture fragment measuring 11 x 6 mm. Separately, there is also a nondisplaced fracture of the distal fibula (Givens B). No dislocation. Soft tissues: Severe lateral soft tissue swelling. IMPRESSION: 1. ATFL avulsion fracture with fracture fragment measuring 11 x 6 mm. 2. Severe lateral soft tissue swelling. 3. Separately, there is also a nondisplaced fracture of the distal fibula (Givens B). <MYCVCSECTION> Communications: 07/07/23 01:02 Call From [facility] on 07/06 01:01 (-04:00)
[2023-07-07] MEDS: MORPHINE SULFATE 4 MG/ML SYRINGE IM STA (01:49)
[2023-07-07 03:37] VITALS: BP 127/68; PULSE 69; RESP 16; TEMP 98.1
== END 2023-07-07 03:15 | disposition home or self-care (01) ==
LOC: EC 21:56
DX: S82.831A Other fracture of upper and lower end of right fibula, initial encounter for closed fracture (principal); Z87.891 Personal history of nicotine dependence; Z91.040 Latex allergy status; Z99.2 Dependence on renal dialysis; Z86.73 Personal history of transient ischemic attack (TIA), and cerebral infarction without residual deficits; W22.09XA Striking against other stationary object, initial encounter
CPT/HCPCS: 29515; 70450; 72125; 96374; 99285

== ENCOUNTER 2023-08-08 13:25 | Observation (INO) | payer MEDICARE ==
--- NOTE | 2023-08-08 13:37 | ED ---
General Adult HPI - General Stated complaint: Fall-Head injury Time Seen by Provider: 08/08/23 13:26 Source: patient, EMS, RN notes reviewed, old records reviewed Mode of arrival: EMS Limitations: no limitations - History of Present Illness Initial comments: Nataly is a 68-year-old female presenting to the emergency department following fall. Patient does have history of seizures and syncope. Patient unclear whether or not she could have lost consciousness because she does not recall the whole episode. Patient reportedly fell back. Patient then was responsive and fell forward. Patient does complain of some discomfort of the left side of her face. No other complaints except for feeling tired. No chest pain or dyspnea. No new neck or back pain. No abdominal pain. - Related Data Home Medications Medication Instructions Recorded Confirmed oxyBUTYnin chloride [Ditropan XL] 10 mg PO DAILY 06/11/20 03/12/23 Divalproex [Depakote] 250 mg PO DAILY 08/15/21 03/12/23 Celecoxib [CeleBREX] 200 mg PO BID 02/26/23 03/12/23 DULoxetine HCL [Cymbalta] 60 mg PO DAILY 02/26/23 03/12/23 Gabapentin [Neurontin] 800 mg PO TID 02/26/23 03/12/23 Ibuprofen [Motrin] 600 mg PO Q6HR PRN 02/26/23 03/12/23 Ketorolac 0.5% Ophth Soln [Acular 1 drop LEFT EYE TID 02/26/23 03/12/23 0.5%] Levothyroxine Sodium [Synthroid] 75 mcg PO DAILY 02/26/23 03/12/23 [place] Carbonate [[place] 300 mg PO BID 02/26/23 03/12/23 Carbonate ER] Moxifloxacin HCl [Moxifloxacin 1 drop LEFT EYE TID 02/26/23 03/12/23 0.5%] Pantoprazole [Protonix] 40 mg PO DAILY 02/26/23 03/12/23 busPIRone HCL 15 mg PO TID 02/26/23 03/12/23 prednisoLONE ACETATE 1% OPHTH 1 drop LEFT EYE TID 02/26/23 03/12/23 [Pred Forte 1%] HYDROcodone/APAP 5-325MG [[place] 1 tab PO Q6HR PRN 03/12/23 03/12/23 5-325] Previous Rx's Medication Instructions Recorded OXcarbazepine [Trileptal] 150 mg PO BID #60 tab 02/27/23 QUEtiapine [SEROquel] 400 mg PO HS #30 tab 02/27/23 traZODone HCL [Desyrel] 150 mg PO HS #90 tab 02/27/23 Acetaminophen Tab [Tylenol] 650 mg PO Q6HR PRN tab 03/15/23 Budesonide-Formot 160-4.5 Mcg 2 puff INHALATION RT-BID #1 each 03/15/23 [Symbicort 160-4.5 Mcg Inhaler] Butalb/APAP/Caff 50-325-40Mg 1 each PO Q8HR PRN #15 tab 03/15/23 [Fioricet 50-325-40] predniSONE [Deltasone] 40 mg PO DAILY 2 Days #4 tab 03/15/23 HYDROcodone/APAP 10-325MG [[place] 1 tab PO Q6HR PRN 6 Days #24 tab 07/07/23 10-325] Allergies Allergy/AdvReac Type Severity Reaction Status Date / Time latex Allergy Unknown Rash/Hives Verified 08/08/23 13:36 Review of Systems ROS Statement: Those systems with pertinent positive or pertinent negative responses have been documented in the HPI. ROS Other: All systems not noted in ROS Statement are negative. Constitutional: Denies: fever Eyes: Denies: eye pain ENT: Denies: ear pain Respiratory: Denies: cough Cardiovascular: Denies: chest pain Endocrine: Reports: fatigue Gastrointestinal: Denies: abdominal pain Neurological: Reports: as per HPI, confusion (Patient reportedly was drowsy and confused per EMS) Past Medical History Past Medical History: COPD, CVA/TIA, Fibromyalgia, Hypertension, Seizure Disorder, Sleep Apnea/CPAP/BIPAP, Thyroid Disorder Additional Past Medical History / Comment(s): Chronic pain mostly in neck/low back, chronic aspirin user -was taking 4-8 tablets a day for about 40 years but had accidental aspirin overdose in August 2019-ended up going into kidney failure and having to have dialysis in ICU-[facility] and started having seizures and hypertensive emergency-sent to [facility] and diagnosed with PRES encephalopathy, pt states CVA 08/2019 with memory problems/word finding problems/slow speech and occasional slurred speech, eating disorder, iron anemia, bronchitis, sinus problems, IBS, UTI with sepsis, hypothyroid, migraines. History of Any Multi-Drug Resistant Organisms: MRSA, VRE Date of last positivie culture/infection: 08/29/21-VRE; 2005 MRSA 12/06/04 MDRO Source:: VRE-Urine; MRSA- Unknown Past Surgical History: Back Surgery, Tonsillectomy Additional Past Surgical History / Comment(s): Cervical and low back surgery Past Anesthesia/Blood Transfusion Reactions: No Reported Reaction Past Psychological History: Anxiety, Bipolar, Depression, PTSD Smoking Status: Former smoker Past Alcohol Use History: None Reported Past Drug Use History: None Reported - Past Family History Sister(s) Family Medical History: Cancer, Renal Disease Additional Family Medical History / Comment(s): breast cancer, kidney cancer Mother Family Medical History: Cancer, Hypertension Additional Family Medical History / Comment(s): breast Father Additional Family Medical History / Comment(s): Father of a cardiac arrest. General Exam Limitations: no limitations General appearance: alert, in no apparent distress Head exam: Present: other (Ecchymosis left face and forehead) Eye exam: Present: normal appearance, PERRL, EOMI ENT exam: Present: normal oropharynx Neck exam: Present: normal inspection. Absent: tenderness Respiratory exam: Present: normal lung sounds bilaterally Cardiovascular Exam: Present: regular rate, normal rhythm GI/Abdominal exam: Present: soft. Absent: tenderness Extremities exam: Present: normal inspection, full ROM. Absent: tenderness Neurological exam: Present: alert, oriented X3, CN II-XII intact Expanded Neurological exam: Present: protecting the airway Patient oriented to: Present: person, place, time Speech: Present: fluid speech Motor strength exam: RUE: 4, LUE: 4, RLE: 4, LLE: 4 Eye Response: (3) open to voice Motor Response: (6) obeys commands Verbal Response: (5) oriented Psychiatric exam: Present: normal affect, normal mood Skin exam: Present: normal color Course Vital Signs 08/08/23 08/08/23 13:28 14:32 Temperature 97.0 F L Pulse Rate 90 81 Respiratory 16 16 Rate Blood Pressure 109/54 125/66 O2 Sat by Pulse 94 L Oximetry EKG Findings - EKG Results: EKG: interpreted by ERMD, sinus rhythm, normal axis, normal QRS, normal ST/T Medical Decision Making - Medical Decision Making Was pt. sent in by a medical professional or institution ([facility] Hoffmann, FLORAL ASSOCIATE, urgent care, hospital, or [facility]...) When possible be specific @ -Patient presents from [facility] Did you speak to anyone other than the patient for history (EMS, parent, family, police, friend...)? What history was obtained from this source @ -EMS helps provide history including transportation Did you review nursing and triage notes (agree or disagree)? Why? @ -I reviewed and agree with nursing and triage notes Were old charts reviewed (outside hosp., previous admission, EMS record, old EKG, old radiological studies, urgent care reports/EKG's, [facility] records)? Report findings @ -No old charts were reviewed Differential Diagnosis (chest pain, altered mental status, abdominal pain women, abdominal pain men, vaginal bleeding, weakness, fever, dyspnea, syncope, headache, dizziness, GI bleed, back pain, seizure, CVA, palpatations, mental health, musculoskeletal)? @ -Differential Syncope: Valvular disease, hypertrophic cardiomyopathy, pulmonary embolism, tamponade, tachycardia, bradycardia, OH, hypovolemia, hemorrhage, dissection, anemia, intracranial hemorrhage, seizure, hypoglycemia, carbon monoxide poisoning, this is not meant to be an all-inclusive list. EKG interpreted by me (3pts min.). @ -As above X-rays interpreted by me (1pt min.). @ -Chest x-ray shows mild hazy appearance CT interpreted by me (1pt min.). @ -CT scan of brain and cervical spine without fracture. U/S interpreted by me (1pt. min.). @ -None done What testing was considered but not performed or refused? (CT, X-rays, U/S, labs)? Why? @ -None What meds were considered but not given or refused? Why? @ -None Did you discuss the management of the patient with other professionals (professionals i.e. [employer]TE[facility] Hoffmann, FLORAL ASSOCIATE, lab, RT, psych nurse, perinatal social worker, linux systems administrator, teacher, business liaison officer, catalytic case operator)? Give summary @ -Patient discussed with Dr. Caban who will admit covering hospital call Was smoking cessation discussed for >3mins.? @ -No Was critical care preformed (if so, how long)? @ -No Were there social determinants of health that impacted care today? How? (Homelessness, low income, unemployed, alcoholism, drug addiction, transportation, low edu. Level, literacy, decrease access to med. care, residential, rehab)? @ -No Was there de-escalation of care discussed even if they declined (Discuss DNR or withdrawal of care, Hospice)? DNR status @ -No What co-morbidities impacted this encounter? (DM, HTN, Smoking, COPD, CAD, Cancer, CVA, ARF, Chemo, Hep., AIDS, mental health diagnosis, sleep apnea, morbid obesity)? @ -None Was patient admitted / discharged? Hospital course, mention meds given and route, prescriptions, significant lab abnormalities, going to OR and other pertinent info. @ -Patient reevaluated and updated. Patient will be admitted. Admission orders written. Undiagnosed new problem with uncertain prognosis? @ -No Drug Therapy requiring intensive monitoring for toxicity (Heparin, Nitro, Insulin, Cardizem)? @ -No Were any procedures done? @ -No Diagnosis/symptom? @ -Syncope Acute, or Chronic, or Acute on Chronic? @ -Acute Uncomplicated (without systemic symptoms) or Complicated (systemic symptoms)? @ -Default Side effects of treatment? @ -No Exacerbation, Progression, or Severe Exacerbation? @ -No Poses a threat to life or bodily function? How? (Chest pain, [place], OH, pneumonia, PE, COPD, DKA, ARF, appy, cholecystitis, CVA, Diverticulitis, Homicidal, Suici alannah, threat to staff... and all critical care pts) @ -No - Lab Data Result diagrams: 08/08/23 13:40 08/08/23 13:40 Lab Results 08/08/23 08/08/23 Range/Units 13:40 13:40 WBC 5.9 (3.8-10.6) k/uL RBC 4.04 (3.80-5.40) m/uL Hgb 11.7 (11.4-16.0) gm/dL Hct 38.2 (34.0-46.0) % MCV 94.5 (80.0-100.0) fL MCH 28.9 (25.0-35.0) pg MCHC 30.5 L (31.0-37.0) g/dL RDW 15.9 H (11.5-15.5) % Plt Count 236 (150-450) k/uL MPV 8.7 Neutrophils % 70 % Lymphocytes % 22 % Monocytes % 5 % Eosinophils % 2 % Basophils % 0 % Neutrophils # 4.1 (1.3-7.7) k/uL Lymphocytes # 1.3 (1.0-4.8) k/uL Monocytes # 0.3 (0-1.0) k/uL Eosinophils # 0.1 (0-0.7) k/uL Basophils # 0.0 (0-0.2) k/uL Hypochromasia Moderate Sodium 143 (137-145) mmol/L Potassium 4.8 (3.5-5.1) mmol/L Chloride 115 H (98-107) mmol/L Carbon Dioxide 21 L (22-30) mmol/L Anion Gap 7 mmol/L BUN 19 H (7-17) mg/dL Creatinine 0.96 (0.52-1.04) mg/dL Est GFR (CKD-EPI)AfAm 71 (>60 ml/min/1.73 sqM) Est GFR (CKD-EPI)NonAf 62 (>60 ml/min/1.73 sqM) Glucose 84 (74-99) mg/dL Calcium 9.9 (8.4-10.2) mg/dL Magnesium 2.5 H (1.6-2.3) mg/dL Total Bilirubin 0.8 (0.2-1.3) mg/dL AST 30 (14-36) U/L ALT 11 (4-34) U/L Alkaline Phosphatase 120 (38-126) U/L Total Protein 7.3 (6.3-8.2) g/dL Albumin 4.1 (3.5-5.0) g/dL Valproic Acid <10.0 ug/mL [place] 1.1 mmol/L Serum Alcohol <10 mg/dL Disposition Clinical Impression: Syncope Disposition: ADMITTED IP TO THIS HOSP Is patient prescribed a controlled substance at d/c from ED?: No Referrals: None,Stated [REFERRING] - 1-2 days Time of Disposition: 16:19
[2023-08-08 13:47] LABS: Basophils % (A) 0 %; Eosinophils # (A) 0.1 k/uL (0-0.7); Eosinophils % (A) 2 %; HCT 38.2 % (34.0-46.0); HGB 11.7 gm/dL (11.4-16.0); Hypochromasia Moderate; Lymphocytes # (A) 1.3 k/uL (1.0-4.8); Lymphocytes % (A) 22 %; MCH 28.9 pg (25.0-35.0); MCHC 30.5 g/dL (31.0-37.0); MCV 94.5 fL (80.0-100.0); Mean Platelet Volume 8.7; Monocytes # (A) 0.3 k/uL (0-1.0); Monocytes % (A) 5 %; Neutrophils # (A) 4.1 k/uL (1.3-7.7); Neutrophils % (A) 70 %; Platelet Count 236 k/uL (150-450); RBC 4.04 m/uL (3.80-5.40); RDW 15.9 % (11.5-15.5); WBC 5.9 k/uL (3.8-10.6)
[2023-08-08 14:01] LABS: ALT 11 U/L (4-34); African American GFR (CKD) 71 (>60 ml/min/1.73 sqM); Alcohol <10 mg/dL; Anion Gap 7 mmol/L; Blood Urea Nitrogen 19 mg/dL (7-17); Calcium 9.9 mg/dL (8.4-10.2); Carbon Dioxide 21 mmol/L (22-30); Chloride 115 mmol/L (98-107); Glucose 84 mg/dL (74-99); Non-African American GFR(CKD) 62 (>60 ml/min/1.73 sqM); Sodium 143 mmol/L (137-145)
[2023-08-08 14:06] LABS: Valproic Acid (Depakene) <10.0 ug/mL
[2023-08-08 14:07] LABS: AST 30 U/L (14-36); Albumin 4.1 g/dL (3.5-5.0); Alkaline Phosphatase 120 U/L (38-126); Lithium 1.1 mmol/L; Magnesium 2.5 mg/dL (1.6-2.3); Potassium 4.8 mmol/L (3.5-5.1); Total Bilirubin 0.8 mg/dL (0.2-1.3); Total Protein 7.3 g/dL (6.3-8.2)
--- NOTE | 2023-08-08 15:01 | CT ---
EXAMINATION TYPE: CT brain cspine wo con, CT facial bones wo con CT DLP: 1118.3 mGycm, Automated exposure control for dose reduction was used. DATE OF EXAM: 08/08/2023 2:27 PM COMPARISON: 07/26/2023. CLINICAL INDICATION:Female, 68 years old with history of fall; FALL TECHNIQUE: Brain: Multiple axial CT images of the brain were obtained without IV contrast. Cspine: Axial CT images from the skull base to the inferior aspect of T2 we obtained without intraven ous contrast. Coronal and sagittal reformatted images were also reviewed. Facial: Axial imaging max of facial structures with sagittal coronal reformats. FINDINGS: Brain: Extra-axial spaces: No abnormal extra-axial fluid collections. Ventricular system: Within normal limits Cerebral parenchyma: Encephalomalacia the bilateral occipital lobes from prior injury. 1No acute intr aparenchymal hemorrhage or mass effect. The lopez-white junction is well differentiated. Cerebellum: Unremarkable. Mass effect: No evidence of midline shift. Intracranial vasculature: Atherosclerotic calcifications of the intracranial vessels. Soft tissues: Left forehead hematoma measuring up to 14 x 6 mm. Calvarium/osseous structures: No depressed skull fracture. Paranasal sinuses and mastoid air cells: Mild paranasal sinus mucosal disease. Visualized orbits: Bilateral aphakia Cervical spine: Fracture: None. Osseous structures: Multilevel degenerative disc disease changes with endplate spurring and disc oste ophyte complex's. Fixation changes throughout the cervical spine appear to have at least one 2 abando n screws at the level of C5 and C6. There is fusion of the C5 and C6 vertebral bodies. Vertebral alignment: Within normal limits. Spinal canal/Neural Foramina: No evidence of significant spinal canal narrowing. No evidence for sign ificant neural foraminal stenosis. Neck soft tissues: Prevertebral soft tissues are within normal limits. Other: The airway is patent. The lung apices are clear. Facial:There is no evidence of fracture, subluxation, dislocation. There is soft tissue swelling over the left 400. The orbital contents are unremarkable.The temporal-mandibular joints appear symmetric. Mild mucosal thickening of the paranasal sinuses IMPRESSION: 1. No acute intracranial process. 2. Left scalp frontal hematoma/edema 3. No evidence of cervical spine fracture. 4. Mild multilevel degenerative disc disease. 5. No evidence for facial fracture.
[2023-08-08] MEDS: MORPHINE SULFATE 4 MG/ML SYRINGE IVP STA (15:37)
--- NOTE | 2023-08-08 15:53 | XR ---
EXAMINATION TYPE: XR chest 1V portable DATE OF EXAM: 08/08/2023 3:18 PM CLINICAL INDICATION:Female, 68 years old with history of fall; H COMPARISON: Chest radiographs from 03/12/2023 TECHNIQUE: XR chest 1V portable Frontal view of the chest. FINDINGS: Lungs/Pleura: There is no evidence of pleural effusion, focal consolidation, or pneumothorax. Pulmonary vascularity: Unremarkable. Heart/mediastinum: Cardiomediastinal silhouette is enlarged and stable. Musculoskeletal: No acute osseous pathology. Fixation hardware in the neck as described on same day C T. IMPRESSION: Low lung volumes with a generalized hazy appearance which could represent atelectasis versus pulmonar y edema correlate with serum BNP.
[2023-08-08] MEDS ORDERED: NALOXONE 0.4 MG/ML 1 ML VIAL IV PRN (16:19)
[2023-08-08 17:54] LABS: Appearance,Urine Cloudy (Clear); Bacteria,Urine Moderate /hpf; Bilirubin,Urine Negative (Negative); Blood,Urine Negative (Negative); Color,Urine Light Yellow; Glucose,Urine (UA) Negative (Negative); Hyaline Casts,Urine 10 /lpf (0-2); Ketones,Urine Negative (Negative); Leukocyte Esterase,Urine Large (Negative); Mucus,Urine Rare /hpf; Nitrite,Urine Positive (Negative); PH, Urine 6.5 (5.0-8.0); Protein,Urine 1+ (Negative); RBC,Urine 3 /hpf (0-5); Specific Gravity,Urine 1.027 (1.001-1.035); Squamous Epithelial Cell,Urine 1 /hpf (0-4); Urobilinogen,Urine <2.0 mg/dL (<2.0); WBC,Urine 102 /hpf (0-5)
[2023-08-08 17:56] LABS: Phencyclidine Screen,Urine Not Detected (NotDetected); Urn Cannabinoid Scrn Not Detected (NotDetected)
[2023-08-08 17:57] LABS: Amphetamine Screen,Urine Not Detected (NotDetected); Barbiturate Screen,Urine Not Detected (NotDetected); Benzodiazepines Screen,Urine Not Detected (NotDetected); Cocaine Screen,Urine Detected (NotDetected); Methadone Screen, Urine Not Detected (NotDetected); Opiate Screen,Urine Detected (NotDetected); Oxycodone Screen, Urine Not Detected (NotDetected); Tricyclic Antidepressant,Urine Detected (NotDetected)
[2023-08-08] MEDS ORDERED: SUMAtriptan succinate 50 MG TAB PO PRN (20:23)
[2023-08-08] MEDS ORDERED: FLUTICASONE 50MCG/SPRAY NASAL 16GM EA NOSTRIL PRN (20:23)
[2023-08-08] MEDS ORDERED: methocarbamoL 500 MG TAB PO PRN (20:23)
[2023-08-08] MEDS: ACETAMINOPHEN TAB 325 MG TAB PO PRN (21:43)
[2023-08-08] MEDS: LITHIUM CARBONATE 300 MG CAP PO SCH (21:46)
[2023-08-08] MEDS: OXcarbazepine 150 MG TAB PO SCH (21:47)
--- NOTE | 2023-08-08 21:47 | HP ---
HISTORY AND PHYSICAL CHIEF COMPLAINT: Fall and head injury. HISTORY OF PRESENT ILLNESS: This is a 68-year-old woman with a past medical history of multiple medical problems including COPD, fibromyalgia, hypertension, seizure disorder, multiple falls. The patient apparently had a fall while getting out of the muslim and subsequently the patient had a fall from the bench also. The patient had fall last week and the patient had bilateral foot fractures and is on splint at this time. The patient is mildly confused also. PAST MEDICAL HISTORY: Reviewed include COPD, CVA, chart and rest of the history is also noted. HOME MEDICATIONS: Reviewed include Desyrel, dose and rest of medications reviewed. ALLERGIES: Latex. Family history, social history, and review of systems could not be taken because the patient is confused. PHYSICAL EXAMINATION: VITAL SIGNS: Pulse is 81, blood pressure 125/60, respirations 16. HEENT: Conjunctivae normal. NECK: No jugular venous distention. CARDIOVASCULAR: S1, S2. RESPIRATIONS: Diminished at the bases, few scattered rhonchi and crackles. ABDOMEN: Soft, nontender. LEGS: No edema, no swelling. NERVOUS SYSTEM: Diffusely weak. LABORATORY DATA: CO2 is 21. ASSESSMENT: 1. Multiple falls and change in mental status, possible metabolic encephalopathy, possible cerebral concussion. 2. History of seizure disorder. 3. Bilateral ankle fractures, bilateral foot fractures recently. 4. COPD. 5. CVA, TIA. 6. Hypertension. 7. Fibromyalgia. 8. Seizure disorder. 9. Sleep apnea. 10.Chronic pain. 11.History of MRSA, VRE. RECOMMENDATIONS AND DISCUSSION: This 68-year-old woman presented with multiple complex medical issues, we will monitor the patient closely. Continue the current symptomatic treatment. Otherwise at this time, I will recommend neuro checks, neurology evaluation. Guarded prognosis because of multiple complex medical issues and further recommendations to follow. See orders for details. MMODL / IJN: [id number] /
[2023-08-08] MEDS: QUEtiapine 400 MG TAB PO SCH (21:48)
[2023-08-08] MEDS: traZODone HCL 50 MG TAB PO SCH (22:49)
[2023-08-08] MEDS: BACLOFEN 10 MG TAB PO SCH (22:49)
[2023-08-08] MEDS: prednisoLONE ACETATE 1% OPHTH DROPS 5 ML BTL LEFT EYE SCH (22:51)
[2023-08-08] MEDS: MOXIFLOXACIN HCL 0.5% DROPS 3 ML BTL LEFT EYE SCH (22:51)
[2023-08-08] MEDS: KETOROLAC 0.5% OPHTH DROPS 5 ML BTL LEFT EYE SCH (22:51)
[2023-08-08] MEDS: GABAPENTIN 400 MG CAP PO SCH (22:54)
[2023-08-08] MEDS: HYDROcodone/APAP 10-325MG 1 EACH TAB PO PRN (22:54)
[2023-08-08] MEDS: busPIRone HCl 5 MG TAB PO SCH (23:39)
[2023-08-09] MEDS: LEVOTHYROXINE 75 MCG TAB PO SCH (06:19)
[2023-08-09] MEDS: MELOXICAM 7.5 MG TAB PO SCH (09:06)
[2023-08-09] MEDS: DIVALPROEX 250 MG TABLET.DR PO SCH (09:06)
[2023-08-09] MEDS: OXYBUTYNIN 10 MG TAB.ER.24 PO SCH (09:07)
[2023-08-09] MEDS: DULoxetine HCL 60 MG CAPSULE.DR PO SCH (09:07)
[2023-08-09] MEDS: IBUPROFEN 600 MG TAB PO PRN (10:10)
--- NOTE | 2023-08-09 11:36 | P.PN ---
Subjective Progress Note Date: 08/09/23 Patient still complaining of pain in the left rib. Her shortness of breath has improved. Gen: In NAD, non-toxic HEENT: normocephalic, atraumatic, hearing acuity is intant, mucous membranes moist CVS: perfusing all extremities well, no pitting edema, Respiratory: symmetric chest expansion, no accessory muscle use, GI: soft, NTTP, ND, : no suprapubic tenderness, no CVA tenderness MSK/Derm: no rashes, cyanosis Neuro: CN II-XII intact, no motor weakness, Psych: cooperative, euthymic mood, judgment and insight is intact Hospital course: 68-year-old woman with medical history of COPD, cocaine abuse, seizure disorder, HTN, PTSD, bipolar disorder presented for evaluation after syncope. Pt has been having multiple falls recently, and has fractured both of her feet as a consequence. She is c/o rib pain as well and thinks she may have broken her ribs. In the emergency room, patient was afebrile, 125/66, heart rate 81, 94% on room air. CBC is unremarkable. Basic metabolic panel shows chloride of 115, CO2 of 21, BUN of 19. Liver function tests are unremarkable. Magnesium was 2.5. UA was significant for 1+ protein, positive nitrites, large leukocyte esterase, 102 white blood cells, moderate bacteria, 10 hyaline cast. Urine tox screen is positive for opiates, tricyclic antidepressants and cocaine. Valproic acid was less than 10, lithium was 1.1, EtOH was less than 10. EKG showed normal sinus rhythm, normal axis, incomplete right bundle branch block. Head/cervical/facial CT showed no acute intracranial process, left scalp frontal hematoma/edema, no evidence of cervical spine fracture, no evidence of facial fracture. Chest x-ray showed low inspiratory volume, borderline cardiomegaly, mild congestion. [facility] our service this morning. Assessment/plan: Syncope Cocaine abuse -Admitted to observation with telemetry -Cessation counseling -Orthostatics twice daily -Left rib x-ray ordered to rule out fracture -Encourage incentive spirometry -Consideration of polypharmacy is leading to multiple episodes of syncope, will discuss with neurology/psychiatry about whether we can off titrate some of these medications Bilateral ankle fractures -Pain control: Ibuprofen as needed, gabapentin 800 mg 3 times daily, Robaxin every 8 hours as needed meloxicam daily Seizure disorder Bipolar disorder -Patient's valproic acid level and lithium level were both subtherapeutic -Resume buspirone -Resume baclofen -Resume Trileptal -Resume Seroquel -Neurology was consulted -And lithium COPD without exacerbation Hypertension PTSD -Home medications were reviewed and reconciled Patient is full code Objective - Vital Signs Vital signs: Vital Signs Temp 97.0 F L 08/08/23 14:32 Pulse 76 08/09/23 06:00 Resp 18 08/09/23 06:00 BP 128/74 08/09/23 06:00 Pulse Ox 95 08/09/23 06:00 FiO2 Intake & Output 08/08/23 08/09/23 08/09/23 18:59 06:59 18:59 Weight 71.668 kg - Labs CBC & Chem 7: 08/08/23 13:40 08/08/23 13:40 Labs: Abnormal Lab Results - Last 24 Hours (Table) 08/08/23 08/08/23 08/08/23 Range/Units 13:40 13:40 17:00 MCHC 30.5 L (31.0-37.0) g/dL RDW 15.9 H (11.5-15.5) % Chloride 115 H (98-107) mmol/L Carbon Dioxide 21 L (22-30) mmol/L BUN 19 H (7-17) mg/dL Magnesium 2.5 H (1.6-2.3) mg/dL Urine Appearance Cloudy H (Clear) Urine Protein 1+ H (Negative) Urine Nitrite Positive H (Negative) Ur Leukocyte Esterase Large H (Negative) Urine WBC 102 H (0-5) /hpf Urine Bacteria Moderate H (None) /hpf Hyaline Casts 10 H (0-2) /lpf Urine Mucus Rare H (None) /hpf Urine Opiates Screen Detected H (NotDetected) U Tricyclic Antidepress Detected H (NotDetected) Urine Cocaine Screen Detected H (NotDetected)
--- NOTE | 2023-08-09 13:09 | XR ---
EXAMINATION TYPE: XR ribs LT DATE OF EXAM: 08/09/2023 12:05 PM CLINICAL INDICATION:Female, 68 years old with history of Rule out fracture; COMPARISON: None TECHNIQUE: XR ribs LT; Frontal and oblique views of the ribs with frontal chest radiograph. FINDINGS: The ribs have a normal appearance. No evidence of fracture. Overall, the lungs are clear. The cardiac silhouette is normal in size. The remaining osseous structures are intact. Fixation tito dware in the lower cervical spine. Multilevel degeneration changes with osteophyte formation disc spa ce narrowing. IMPRESSION: No displaced rib fracture definitely visualized.
--- NOTE | 2023-08-09 14:24 | P.CNNES ---
History of Present Illness Consult date: 08/09/23 Requesting physician: Alvarez Castellon Reason for Consult: syncope History of Present Illness: This is a 68-year-old woman with history of seizure presents the emergency department after a fall. Patient is tangential upon providing the history and was not consistent. She stated that she resides with her and she stated that she was at [employer] yesterday and when she was walking she fell and she felt wobbly when she was walking but did not lose consciousness. She stated arms were shaking for few minutes. Patient denies any urinary or bowel incontinence. Denied any tongue bite. She states that she has a history of seizure but later stated what is the definition of a seizure. She cannot tell me what medication she is on. She stated that about a month ago she had a fall and she had a fracture of bilateral ankle and tibia. As a result she has a brace in her lower extremity. And she has a bruise over the left side of the face. She stated that this happened while she was in [place]. Initially she stated she did not follow-up with a neurologist as an outpatient but later stated that she did follow-up with a neurologist and was told she had a seizure but again does not know what medication she is on. Urine drug screen was positive for cocaine, opiate and tricyclic antidepressant. Denied that she is using drugs. She stated that her uses cocaine and she is current that the smoke of cocaine in the air has let her her urine drug screen to be positive. Upon reviewing the medical record it seems the patient had An EEG in 08/2019 reported that is frequent electrographic seizure with right central parietal onset. Some of the other workup during this hospital visit consisted of: Magnesium is 2.5. Serum glucose is 84. Urinalysis seems suspicious for underlying urinary tract infection Other pieces of the urine drug screen is that valproic acid is less than 10. Serum alcohol is less than 10. And the lithium is 1.1. Which is considered therapeutic. CT of the head, C-spine and face is reported as no acute intracranial process. Left scalp frontal hematoma edema. No evidence of cervical spine fracture. Mild multilevel degenerative disc disease. No evidence for facial fracture. Personally reviewed the CT and agree there is no acute process evident. Spoke with the primary team and it seems the patient has a bipolar and she is on lithium. It seems that the patient is on multiple medication such as Seroquel, trazodone, Synthroid. She is on gabapentin 800 mg 3 times daily, Trileptal 150 mg twice daily. For buspirone, lithium, Depakote 250 mg daily. Review of Systems Limited but the positive and negative as per HPI. Past Medical History Past Medical History: COPD, CVA/TIA, Fibromyalgia, Hypertension, Seizure Disorder, Sleep Apnea/CPAP/BIPAP, Thyroid Disorder Additional Past Medical History / Comment(s): Chronic pain mostly in neck/low back, chronic aspirin user -was taking 4-8 tablets a day for about 40 years but had accidental aspirin overdose in August 2019-ended up going into kidney failure and having to have dialysis in ICU-went [facility] after and started having seizures and hypertensive emergency-sent to [facility] and diagnosed with PRES encephalopathy, pt states CVA 08/2019 with memory problems/word finding problems/slow speech and occasional slurred speech, eating disorder, iron anemia, bronchitis, sinus problems, IBS, UTI with sepsis, hypothyroid, migraines. History of Any Multi-Drug Resistant Organisms: MRSA, VRE Date of last positivie culture/infection: 08/29/21-VRE; 2004 MRSA 12/06/04 MDRO Source:: VRE-Urine; MRSA- Unknown Past Surgical History: Back Surgery, Tonsillectomy Additional Past Surgical History / Comment(s): Cervical and low back surgery Past Anesthesia/Blood Transfusion Reactions: No Reported Reaction Past Psychological History: Anxiety, Bipolar, Depression, PTSD Smoking Status: Former smoker Past Alcohol Use History: None Reported Past Drug Use History: None Reported - Past Family History Sister(s) Family Medical History: Cancer, Renal Disease Additional Family Medical History / Comment(s): breast cancer, kidney cancer Mother Family Medical History: Cancer, Hypertension Additional Family Medical History / Comment(s): breast Father Additional Family Medical History / Comment(s): Father of a cardiac arrest. Medications and Allergies Home Medications Medication Instructions Recorded Confirmed Type oxyBUTYnin chloride [Ditropan XL] 10 mg PO DAILY 06/11/20 08/08/23 History Divalproex [Depakote] 250 mg PO DAILY 08/15/21 08/08/23 History DULoxetine HCL [Cymbalta] 60 mg PO DAILY 02/26/23 08/08/23 History Gabapentin [Neurontin] 800 mg PO TID 02/26/23 08/08/23 History Ibuprofen [Motrin] 600 mg PO Q6HR PRN 02/26/23 08/08/23 History Ketorolac 0.5% Ophth Soln [Acular 1 drop LEFT EYE TID 02/26/23 08/08/23 History 0.5%] Levothyroxine Sodium [Synthroid] 75 mcg PO DAILY 02/26/23 08/08/23 History [place] Carbonate [[place] 300 mg PO BID 02/26/23 08/08/23 History Carbonate ER] Moxifloxacin HCl [Moxifloxacin 1 drop LEFT EYE TID 02/26/23 08/08/23 History 0.5%] busPIRone HCL 15 mg PO TID 02/26/23 08/08/23 History prednisoLONE ACETATE 1% OPHTH 1 drop LEFT EYE TID 02/26/23 08/08/23 History [Pred Forte 1%] OXcarbazepine [Trileptal] 150 mg PO BID #60 tab 02/27/23 08/08/23 Rx QUEtiapine [SEROquel] 400 mg PO HS #30 tab 02/27/23 08/08/23 Rx HYDROcodone/APAP 10-325MG [[place] 1 tab PO Q6HR PRN 6 Days #24 tab 07/07/23 08/08/23 Rx 10-325] Baclofen 10 mg PO BID 08/08/23 08/08/23 History Celecoxib [CeleBREX] 100 mg PO DAILY 08/08/23 08/08/23 History Fluticasone Nasal [place] [Flonase 1 spray EA NOSTRIL DAILY PRN 08/08/23 08/08/23 History Nasal [place]] Rizatriptan Benzoate [Rizatriptan] 10 mg PO DAILY PRN 08/08/23 08/08/23 History methocarbamoL [Robaxin] 1,000 mg PO Q8H PRN 08/08/23 08/08/23 History traZODone HCL 150 mg PO HS 08/08/23 08/08/23 History Allergies Allergy/AdvReac Type Severity Reaction Status Date / Time latex Allergy Unknown Rash/Hives Verified 08/08/23 13:36 Physical Examination - Vital Signs Vital Signs: Vital Signs Temp Pulse Resp BP Pulse Ox 06/03/24 06:00 76 18 128/74 95 08/08/23 22:55 77 16 135/93 96 08/08/23 20:18 68 16 110/62 96 08/08/23 18:31 79 16 106/58 93 L 08/08/23 16:38 84 18 129/84 98 08/08/23 14:32 97.0 F L 81 16 125/66 94 L GENERAL: The patient is lying in bed and is not in acute distress. NEUROLOGICAL: Higher mental function: The patient is awake, alert, oriented to self, place and time. Patient is following commands. No aphasia and no neglect. Cranial nerves: The pupils are round, equal and reactive to light and accommodation. Visual kaminski are full to confrontation throughout. Extraocular movement is intact no nystagmus is noted. Facial sensation is normal to touch throughout. The facial strength is normal throughout. Hearing is normal bilaterally to hand rub. Tongue is midline and moved [id number] without any difficulty. No dysarthria is noted. Shoulder shrug is normal bilaterally. Motor: Gait seems normal and using any assistance. The strength is 5 over 5 throughout uppers. Lowers is limited but is able to raise above gravity proximally without difficulty. Has bilateral lower ankle brace.. Normal tone and bulk. Cerebellum: Normal finger to nose bilaterally. Sensation: Sensation is normal to touch throughout. Reflexes (right/left): 2+ uppers. Lowers limited since has brace. Results - Laboratory Findings CBC and BMP: 08/08/23 13:40 08/08/23 13:40 Abnormal Lab Findings: Abnormal Labs 08/08/23 08/08/23 08/08/23 13:40 13:40 17:00 MCHC 30.5 L RDW 15.9 H Chloride 115 H Carbon Dioxide 21 L BUN 19 H Magnesium 2.5 H Urine Appearance Cloudy H Urine Protein 1+ H Urine Nitrite Positive H Ur Leukocyte Esterase Large H Urine WBC 102 H Urine Bacteria Moderate H Hyaline Casts 10 H Urine Mucus Rare H Urine Opiates Screen Detected H U Tricyclic Antidepress Detected H Urine Cocaine Screen Detected H Assessment and Plan Assessment: This is a 68-year-old woman with history of seizure, bipolar who presents to the emergency department because of a fall that she stated she was wobbly upon walking and she was having tremors. She denies any loss of consciousness, urinary or bowel incontinence. Patient is not a great historian and she stated that she does have a history of seizure but then later she stated what is the definition of a seizure. It seems that she had an EEG in our facility is back a s August 2019 and she reported that she had seizures as frequent over the right central parietal. Patient is on Trileptal 150 mg twice daily, Depakote 250 mg daily gabapentin and multiple other psych medications. Urine drug screen was positive for cocaine, opiate and tricyclic antidepressant. Episode of a fall tremor likely due to drug use. Cannot rule out seizure and if it is a seizure is likely provoked due to drug use unsure if patient is compliant taking medication Positive cocaine use (but patient states he uses it and thinks the smoke of it caused her to have positive test result) Prior fall about a month ago and she stated that she had broken ankle bilaterally and has brace History of seizure Bipolar Hypothyroidism Polypharmacy Plan: I ordered a routine EEG She is on Trileptal 150 mg twice daily, Depakote 250 mg daily. Also is on gabapentin 800 mg 3 times daily which is a week antiepileptic drug. If EEG is negative for any seizures I would recommend a prolonged EEG as an outpatient and to have her medication modified as an outpatient. Seizure precaution and pads Per the [place] DMV because of the seizure, avoid driving for 6 months until seizure-free, avoid heights, avoid swimming unassisted and avoid using heavy machinery. I think the patient is on polypharmacy. I feel the patient's Depakote 250 mg daily is low. Unsure if it is used for her psych issues. This can be increased to 250 mg twice daily or even 500 if she continues to have further seizure. If this is causing her to have tremors then I would recommend switching to Lamictal 25 mg and to slowly titrate up to 100 mg twice a day. I also recommend if possible to modify the gabapentin and lower it down the line if she continues to have tremor from 800 mg 3 times daily to 300 3 times daily as outpatient Was notified to avoid drug use. Recommend the patient to follow-up with psychiatrist and neurologist as an outpatient for further evaluation. Number to follow-up with a neurologist within 2 weeks. Will defer the rest of the medical management the primary team The plan is discussed with the patient and the primary team Thank for the consult Time with Patient: Greater than 30
--- NOTE | 2023-08-09 23:28 | EEG ---
ELECTROENCEPHALOGRAM REPORT CLINICAL HISTORY: This is a 68-year-old woman with history of seizure, who presents because of fall and tremor. The video EEG is obtained to evaluate for seizure epileptiform activity. RELEVANT MEDICATIONS: 1. Trileptal. 2. Depakote. EEG TYPE: A routine 21-channel EEG with video using the 10/20 electrode placement system. DESCRIPTION: Wakefulness and drowsiness are obtained. During awake state, the posterior- dominant rhythm consists of [id number] voltage of 7 to 7.5 hertz activity. At times, the background consists of diffuse nonrhythmic delta activity. There is no physiological stage 2 sleep architecture. There is no focal slowing. Interictal and ictal is none. ACTIVATION PROCEDURE: Photic stimulation did not evoke a posterior driving response. There is no abnormality during the photic stimulation. Hyperventilation is not performed. CLINICAL INTERPRETATION: This is an abnormal routine EEG. The background slowing is suggestive of mild encephalopathy. There is no focal slowing, epileptiform discharge, or seizure on the EEG. Clinical correlation is recommended. MMMICHAEL / ONDINA: [id number] / MTDD
[2023-08-10 06:24] LABS: Basophils % (A) 0 %; Eosinophils # (A) 0.1 k/uL (0-0.7); Eosinophils % (A) 3 %; HCT 34.5 % (34.0-46.0); HGB 10.6 gm/dL (11.4-16.0); Hypochromasia Moderate; Lymphocytes % (A) 41 %; MCH 29.2 pg (25.0-35.0); MCHC 30.8 g/dL (31.0-37.0); MCV 94.8 fL (80.0-100.0); Mean Platelet Volume 8.6; Monocytes # (A) 0.3 k/uL (0-1.0); Monocytes % (A) 6 %; Neutrophils # (A) 2.3 k/uL (1.3-7.7); Neutrophils % (A) 47 %; Platelet Count 225 k/uL (150-450); RBC 3.64 m/uL (3.80-5.40); WBC 4.8 k/uL (3.8-10.6)
[2023-08-10 06:32] LABS: African American GFR (CKD) >90 (>60 ml/min/1.73 sqM); Anion Gap 4 mmol/L; Blood Urea Nitrogen 12 mg/dL (7-17); Calcium 9.7 mg/dL (8.4-10.2); Carbon Dioxide 20 mmol/L (22-30); Chloride 116 mmol/L (98-107); Glucose 94 mg/dL (74-99); Magnesium 2.3 mg/dL (1.6-2.3); Non-African American GFR(CKD) >90 (>60 ml/min/1.73 sqM); Potassium 3.9 mmol/L (3.5-5.1); Sodium 140 mmol/L (137-145)
[2023-08-10] MEDS: HEPARIN SODIUM,PORCINE 5,000 UNIT/ML 1 ML VIAL SQ SCH (11:23)
--- NOTE | 2023-08-10 11:30 | P.PN ---
Subjective Progress Note Date: 08/10/23 Hospital course: Patient is a 68-year-old female with a past medical history of COPD, cocaine abuse, seizure disorder, hypertension, PTSD, and bipolar disorder. She presented to the emergency department on 08/08/2023 with a chief complaint of syncopal episode and left rib pain. In addition, patient reporting multiple falls recently resulting in recent fracture of both of her feet. On arrival to our facility, patient underwent evaluation in the emergency department. Vital signs upon arrival show blood pressure 125/66, heart rate 81, respiratory rate 16, temp 97.0 F, and SpO2 of 94% on room air. EKG completed showing normal sinus rhythm at 84 bpm with no significant T wave or ST abnormalities showing no signs of acute ischemia. Chest x-ray showing low lung volumes with generalized hazy appearance. CT facial bones, head and cervical spine completed negative for acute intracranial process and no evidence of cervical spine fracture, showing no evidence for facial fracture revealing mild multilevel degenerative disc disease and left scalp frontal hematoma. Patient was admitted to the hospital with consultation to neurology. Patient continued to complain of left rib pain. X-rays completed of left ribs negative for displaced rib fracture or evidence of fracture. Patient was evaluated by neurology and an EEG was completed. EEG showing background slowing suggestive of mild encephalopathy with no focal slowing, epileptiform discharge, or seizure activity reported. Physical exam: Vital signs reviewed and stable. General: Nontoxic, no distress and appears stated age. Derm: Skin warm and dry, normal coloration for ethnicity. Head: Atraumatic, normocephalic and symmetric. Eyes: EOMs intact, no lid lag, and anicteric sclera Mouth: no lip lesions, mucus membranes moist Cardiovascular: regular rate and rhythm with normal S1S2, no murmur, positive posterior tibial pulses bilaterally, and cap refill < 2 seconds. Lungs: Respirations even, regular, and unlabored on room air. Lungs CTA bi laterally, no rhonchi, no rales, no wheezing, and no accessory muscle usage. Abdominal: soft, nontender to palpation, no guarding, no appreciable organomegaly Ext: No gross muscle atrophy, no edema, no contractures. Movement and sensation intact. Neuro: Speech clear, face symmetrical and CN II-XII grossly intact with no noted focal neuro deficits Psych: Alert and oriented to person, place, time, and situation. Appropriate and pleasant affect. Assessment and Plan of Care: Syncope, unclear cause possibly secondary to Drug use vs Polypharmacy vs Seizure Cocaine abuse -Admitted to observation with telemetry. -Cessation counseling of drug use was provided. -Orthostatic vitals to be completed twice daily -Continue seizure precautions and fall precautions. -Encourage incentive spirometry use. -Consideration of polypharmacy is leading to multiple episodes of syncope, will discuss with neurology/psychiatry about whether we can off titrate some of these medications -Neurology consulted, reviewed documentation in chart. -EEG showing background slowing suggestive of mild encephalopathy with no focal slowing, epileptiform discharge, or seizure activity reported. -Psychiatry consulted, appreciate recommendations. -Urine drug screen positive for opiates, tricyclic antidepressants, and cocaine. -Valproic acid subtherapeutic at less than 10 and lithium level was therapeutic at 1.1. Bilateral ankle fractures -Pain control: Ibuprofen as needed, gabapentin 800 mg 3 times daily, Robaxin every 8 hours as needed and meloxicam daily Seizure disorder Bipolar disorder PTSD -Resume Buspirone 15 mg 3 times daily, Depakote 250 mg daily, Cymbalta 60 mg daily, Neurontin 800 mg 3 times daily, lithium 300 mg twice daily, oxcarbazepine 150 mg twice daily, Seroquel 400 mg nightly, and trazodone 150 mg nightly. -Valproic acid subtherapeutic at less than 10 and lithium level was therapeutic at 1.1. -Neurology following, reviewed documentation in chart. -Psychiatry consulted, appreciate recommendations Hypothyroidism -Continue daily medication regimen with levothyroxine 75 mcg daily. Asymptomatic bacteriuria -Urinalysis positive for nitrites, leukocytes, and 102 WBCs. Patient asymptomatic of urinary complaints. No need for antibiotics for asymptomatic bacteriuria. Data and imaging reviewed: -Vital signs reviewed. Blood pressure 108/63, heart rate 75, respiratory rate 17, temp 98.0 F, and SpO2 of 95% on room air. -Labs reviewed. CBC showing stable normocytic anemia with hemoglobin of 10.6. BMP showing non-anion gap metabolic acidosis with chloride of 116, bicarb of 20, and anion gap of 4. Magnesium normal findings at 2.3. CODE STATUS: Full code DVT prophylaxis: Heparin Anticipated discharge date: Pending clinical course, awaiting further recommendations from psychiatry and neurology Anticipated discharge place: Home Patient was seen independently by Nurse Pracitioner. This document was prepared using [employer] dictation software. Please allow for errors in pattern storage clerk, while rare they do occur. [employer] rendered care for this patient independently, reviewed the findings and plan as documented in the note above. I did not physically speak with or examine the patient on this date. Objective - Vital Signs Vital signs: Vital Signs Temp 98 F 08/09/23 19:48 Pulse 82 08/10/23 02:00 Resp 18 08/10/23 02:00 BP 128/78 08/10/23 02:00 Pulse Ox 92 L 08/10/23 02:00 FiO2 Intake & Output 08/09/23 08/10/23 08/10/23 18:59 06:59 18:59 Intake Total 550 Balance 550 Weight 71.668 kg Intake: Oral 550 Other: Voiding Method Toilet # Voids 3 - Labs CBC & Chem 7: 08/10/23 05:42 08/10/23 05:42 Labs: Abnormal Lab Results - Last 24 Hours (Table) 08/10/23 08/10/23 Range/Units 05:42 05:42 RBC 3.64 L (3.80-5.40) m/uL Hgb 10.6 L (11.4-16.0) gm/dL MCHC 30.8 L (31.0-37.0) g/dL RDW 16.0 H (11.5-15.5) % Chloride 116 H (98-107) mmol/L Carbon Dioxide 20 L (22-30) mmol/L
--- NOTE | 2023-08-10 13:25 | P.CN ---
Psychiatric Consult - . Consult date: 08/10/23 Consult:: 08/10/23 12:55 IDENTIFYING DATA: This patient is a 68-year-old female, who currently lives with her in a house, they have 2 kids, she collects SSD REASON FOR REFERRAL: Psychiatry was consulted for bipolar disorder HISTORY OF PRESENT ILLNESS: The patient presented to the hospital on 08/07 after a fall and syncopal episode. Patient's urine drug screen is positive for opiates CCAs and cocaine. [place] level is 1.1. Patient had a CT scan of her head which did not show any acute intracranial changes. Patient was seen at the bedside and agreeable to speak to program writer. She claims that she was at [employer] and states that she was not feeling well all of a sudden, claims that she was feeling wobbly dizzy and hit her head on a rail. Claims that she fell down afterwards and they called the ambulance. States that she has been having these kind of episodes every now and again for the past couple of months. States that she was recently started on Depakote about a couple months ago. States that she usually describes them as feeling dizzy and unstable on her feet. Claims that she broke her leg on the previous fall. She states that she has been feeling a bit depressed lately, also endorsing anxiety. Claims that she is still grieving her son's passing about 7 years ago, claims that usually gets worse in the summertime. She states that she has been bit tired during the day, appetite has been on and off.. At this time patient denies any suicidal or homical ideations, intent or plan. Patient denies any auditory, visual hallucinations and denies any paranoia or delusions. Patients admits to using no recreational drugs or cigarettes, she claims that she does get secondhand inhalation from her 's crack/cocaine use PAST PSYCHIATRIC HISTORY: Patient has a a history of bipolar disorder and anxiety. Patient is on several different medications including trazodone Seroquel Trileptal lithium Cymbalta Depakote and BuSpar. She claims that she was previously psychiatrically hospitalized several years ago however cannot remember when. Patient denies any psychiatric outpatient follow-up. She claims that she currently follows up with her primary care physician for her psychiatric medications to be refilled. Patient denies any history of suicide attempts in the past. Past Medical History: COPD, CVA/TIA, Fibromyalgia, Hypertension, Seizure Disorder, Sleep Apnea/CPAP/BIPAP, Thyroid Disorder Additional Past Medical History / Comment(s): Chronic pain mostly in neck/low back, chronic aspirin user -was taking 4-8 tablets a day for about 40 years but had accidental aspirin overdose in August 2019-ended up going into kidney failure and having to have dialysis in ICU-went [facility] and started having seizures and hypertensive emergency-sent to [facility] and diagnosed with PRES encephalopathy, pt states CVA 08/2019 with memory problems/word finding problems/slow speech and occasional slurred speech, eating disorder, iron anemia, bronchitis, sinus problems, IBS, UTI with sepsis, hypothyroid, migraines. History of Any Multi-Drug Resistant Organisms: MRSA, VRE Date of last positivie culture/infection: 08/29/21-VRE; 2004 MRSA 12/06/04 MDRO Source:: VRE-Urine; MRSA- Unknown Past Surgical History: Back Surgery, Tonsillectomy Additional Past Surgical History / Comment(s): Cervical and low back surgery Past Anesthesia/Blood Transfusion Reactions: No Reported Reaction Past Psychological History: Anxiety, Bipolar, Depression, PTSD Smoking Status: Former smoker Past Alcohol Use History: None Reported Past Drug Use History: None Reported ALLERGIES: as per EMR. CHEMICAL DEPENDENCY HISTORY: as per HPI. FAMILY PSYCHIATRIC/SUBSTANCE USE HISTORY: Claims that her mother had some form o f mental illness. SOCIAL HISTORY: Patient was born and raised in [facility], claims that she moved to [place] and also [place]. States that she completed high school, claims that she had 3 children, one of them 2 are still living. Collects SSD. Currently lives with her in a house. Denies any previous legal history MENTAL STATUS EXAM: General Appearance: Patient appears to have a bruise on the side of her face, be stated age is alert, pleasant, and attempts to be cooperative. Patient appears to have fair hygiene and grooming wearing hospital gown with fair eye contact. Behavior: Patient is calmly lying in bed without any agitated behavior. Attempts to cooperate Speech: Patient's speech is fluent and nonpressured. Soft spoken Mood/Affect: Patient reports their mood is "depressed and a bit anxious", affect is congruent Suicidality/Homicidality: Patient denies having any suicidal or homicidal ideation intent or plan. Perceptions: Patient denies any visual hallucinations and denies any auditory hallucinations Though content/process: There is no evidence of any delusional thought content and thought process is linear and goal-directed. Memory and concentration: AOX3, grossly intact for the purposes of this session. Can spell "WORLD" backwards Judgment and insight: Fair IMPRESSIONS: Syncopal episode Polypharmacy Bipolar disorder depressed PLAN: -At this time patient DOES NOT meet criteria for inpatient psychiatric admission. -Would recommend the following medication changes/additions: Will discontinue Depakote as per patient's history she was started on this about 2 months ago and has been doing worse since. Also will decrease Trileptal to 150 mg daily for mood stabilization, plan to continue tapering off if tolerated as this medica tion has several drug drug interactions including speeding up its own metabolism along with other medications metabolism and also side effects. Can continue with other psychiatric medications as prescribed. Increase Cymbalta to 90 mg daily for mood/anxiety -gas worker to provide patient with outpatient mental health/psychiatry resources for appropriate follow up upon discharge. Spoke with patient about the importance of following up with a psychiatrist upon discharge due to patient's condition and also the polypharmacy and complexity of her case. -High Lead Yarder spoke with patient about substance abuse and the harmful effects on medical and mental health, patient verbally understood and agreed. -Communicated plan to patient's nurse -Psychiatry will sign off at this time -Please contact with any questions. 08/10/23 13:18
[2023-08-10] MEDS: ONDANSETRON 4 MG/2 ML VIAL IVP PRN (17:28)
[2023-08-11 08:07] VITALS: BP 120/70; PULSE 74; RESP 16; TEMP 98.1
[2023-08-11] MEDS: DULoxetine HCL 30 MG CAPSULE.DR PO SCH (09:04)
[2023-08-11] MEDS: OXcarbazepine 150 MG TAB PO SCH (09:06)
--- NOTE | 2023-08-11 13:17 | P.DS ---
Providers Date of admission: 08/08/23 16:21 Expected date of discharge: 08/11/23 Attending physician: Presley Fields MD Consults: 08/08/23 16:19 Consult Physician Routine Consulting Provider: Cynthia Villalpando Consult Reason/Comments: syncope Do you want consulting provider notified?: Yes 08/09/23 11:35 Consult Physician Routine Consulting Provider: Hayden Mendoza Consult Reason/Comments: biploar disorder Do you want consulting provider notified?: Yes Primary care physician: Azam Self Hospital Course: Discharge Diagnosis: Syncope, unclear cause possibly secondary to Drug use vs Polypharmacy vs Seizure Cocaine abuse Bilateral ankle fractures Seizure disorder Bipolar disorder PTSD Hypothyroidism Asymptomatic bacteriuria Hospital Course: Patient is a 68-year-old female with a past medical history of COPD, cocaine abuse, seizure disorder, hypertension, PTSD, and bipolar disorder. She presented to the emergency department on 08/08/2023 with a chief complaint of syncopal episode and left rib pain. In addition, patient reporting multiple falls recently resulting in recent fracture of both of her feet. On arrival to our facility, patient underwent evaluation in the emergency department. Vital signs upon arrival show blood pressure 125/66, heart rate 81, respiratory rate 16, temp 97.0 F, and SpO2 of 94% on room air. EKG completed showing normal sinus rhythm at 84 bpm with no significant T wave or ST abnormalities showing no signs of acute ischemia. Chest x-ray showing low lung volumes with generalized hazy appearance. CT facial bones, head and cervical spine completed negative for acute intracranial process and no evidence of cervical spine fracture, showing no evidence for facial fracture revealing mild multilevel degenerative disc disease and left scalp frontal hematoma. Patient was admitted to the hospital with consultation to neurology. Patient continued to complain of left rib pain. X-rays completed of left ribs negative for displaced rib fracture or evidence of fracture. Patient was evaluated by neurology and an EEG was completed. EEG showing background slowing suggestive of mild encephalopathy with no focal slowing, epileptiform discharge, or seizure activity reported. Patient cleared from neurology perspective for discharge. She was evaluated by psychiatry and medication changes were made including Trileptal decreased to 150 mg daily and Cymbalta was increased to 90 mg daily and Depakote was discontinued. Patient strongly encouraged to avoid any and all alcohol and drug use including cocaine use. She was educated on [place] state law stating no driving until seizure/syncope free for 6 months. Patient encouraged to follow- up outpatient to establish care with PCP as well as a neurologist. Patient provided with outpatient resources for substance abuse at this time and to continue to follow with engineering technical specialist for follow-up on her bilateral ankle fractures and when she will be able to remove walking boots. Patient medically stable for discharge at this time. Physical exam: Vital signs reviewed and stable. General: Nontoxic, no distress and appears stated age. Derm: Skin warm and dry, normal coloration for ethnicity. Head: Atraumatic, normocephalic and symmetric. Eyes: EOMs intact, no lid lag, and anicteric sclera Mouth: no lip lesions, mucus membranes moist Cardiovascular: regular rate and rhythm with normal S1S2, no murmur, positive posterior tibial pulses bilaterally, and cap refill < 2 seconds. Lungs: Respirations even, regular, and unlabored on room air. Lungs CTA bilaterally, no rhonchi, no rales, no wheezing, and no accessory muscle usage. Abdominal: soft, nontender to palpation, no guarding, no appreciable organomegaly Ext: No gross muscle atrophy, no edema, no contractures. Movement and sensation intact. Neuro: Speech clear, face symmetrical and CN II-XII grossly intact with no noted focal neuro deficits Psych: Alert and oriented to person, place, time, and situation. Appropriate and pleasant affect. A total of 31 minutes of time were spent preparing this complex discharge summary. Pt was discharged on 08/11/23 at 9:49 AM. Patient was seen independently by Nurse Practitioner. This document was prepared using [employer] dictation software. Please allow for errors in wooden frame builder while rare they do occur. Philipp Reyez NP rendered care for this patient independently, reviewed the findings and plan as documented in the note above. I did not physically speak with or examine the patient on this date. Patient Condition at Discharge: Stable Plan - Discharge Summary New Discharge Prescriptions: New DULoxetine HCL [Cymbalta] 90 mg PO DAILY 30 Days #90 cap Continue Ketorolac 0.5% Ophth Soln [Acular 0.5%] 1 drop LEFT EYE TID [place] Carbonate [Weaver Carbonate ER] 300 mg PO BID Moxifloxacin HCl [Moxifloxacin 0.5%] 1 drop LEFT EYE TID QUEtiapine [SEROquel] 400 mg PO HS #30 tab HYDROcodone/APAP 10-325MG [[place] 10-325] 1 tab PO Q6HR PRN 6 Days #24 tab PRN Reason: Pain Baclofen 10 mg PO BID Celecoxib [CeleBREX] 100 mg PO DAILY oxyBUTYnin chloride [Ditropan XL] 10 mg PO DAILY busPIRone HCL 15 mg PO TID Gabapentin [Neurontin] 800 mg PO TID Levothyroxine Sodium [Synthroid] 75 mcg PO DAILY prednisoLONE ACETATE 1% OPHTH [Pred Forte 1%] 1 drop LEFT EYE TID traZODone HCL 150 mg PO HS methocarbamoL [Robaxin] 1,000 mg PO Q8H PRN PRN Reason: Muscle Pain Rizatriptan Benzoate [Rizatriptan] 10 mg PO DAILY PRN PRN Reason: Migraine Headache Fluticasone Nasal [place] [Flonase Nasal [place]win] 1 spray EA NOSTRIL DAILY PRN PRN Reason: Allergy Symptoms Changed OXcarbazepine [Trileptal] 150 mg PO DAILY #60 tab Discontinued Ibuprofen [Motrin] 600 mg PO Q6HR PRN PRN Reason: Pain Divalproex [Depakote] 250 mg PO DAILY DULoxetine HCL [Cymbalta] 60 mg PO DAILY Discharge Medication List oxyBUTYnin chloride [Ditropan XL] 10 mg PO DAILY 06/11/20 [History] Gabapentin [Neurontin] 800 mg PO TID 02/26/23 [History] Ketorolac 0.5% Ophth Soln [Acular 0.5%] 1 drop LEFT EYE TID 02/26/23 [History] Levothyroxine Sodium [Synthroid] 75 mcg PO DAILY 02/26/23 [History] [place] Carbonate [[place] Carbonate ER] 300 mg PO BID 02/26/23 [History] Moxifloxacin HCl [Moxifloxacin 0.5%] 1 drop LEFT EYE TID 02/26/23 [History] busPIRone HCL 15 mg PO TID 02/26/23 [History] prednisoLONE ACETATE 1% OPHTH [Pred Forte 1%] 1 drop LEFT EYE TID 02/26/23 [History] QUEtiapine [SEROquel] 400 mg PO HS #30 tab 02/27/23 [Rx] HYDROcodone/APAP 10-325MG [[place] 10-325] 1 tab PO Q6HR PRN 6 Days #24 tab 07/07/23 [Rx] Baclofen 10 mg PO BID 08/08/23 [History] Celecoxib [CeleBREX] 100 mg PO DAILY 08/08/23 [History] Fluticasone Nasal [place] [Flonase Nasal [place]] 1 spray EA NOSTRIL DAILY PRN 08/08/23 [History] Rizatriptan Benzoate [Rizatriptan] 10 mg PO DAILY PRN 08/08/23 [History] methocarbamoL [Robaxin] 1,000 mg PO Q8H PRN 08/08/23 [History] traZODone HCL 150 mg PO HS 08/08/23 [History] DULoxetine HCL [Cymbalta] 90 mg PO DAILY 30 Days #90 cap 08/11/23 [Rx] OXcarbazepine [Trileptal] 150 mg PO DAILY #60 tab 08/11/23 [Rx] Follow up Appointment(s)/Referral(s): Fidelia Borja MD [REFERRING] - 1 Week Maddy Harkins III, MD [STAFF PHYSICIAN] - 1 Week (Please call and schedule appointment to establish care with PCP and for posthospitalization follow-up) Patient Instructions/Handouts: Duloxetine (By mouth), Syncope (DC), Polysubstance Abuse (ED), Fall Prevention (DC) Activity/Diet/Wound Care/Special Instructions: Activity: As tolerated. Take breaks as needed. Diet: Heart healthy and carb consistent diet. Avoid salts, or foods with hidden salts such as canned or boxed foods and frozen dinners. Extra salt makes your heart work harder and traps the fluid in your body for longer. Special Instructions: Take all of your medications as directed and remember to keep all of your doctor's appointments and follow-up as needed. [place] state law states no driving until seizure free for 6 months. It is also important to avoid climbing ladders, operating dangerous or heavy machinery or unsupervised swimming until seizure free for 6 months. Please note, your oxcarbazepine (Trileptal) has been decreased to only 1 tablet daily (150 mg daily), duloxetine (Cymbalta) dose has been increased to 90 mg daily and your Depakote has been discontinued. Thank you for allowing us to participate in your care, it was truly a pleasure having you for our patient!!! Discharge/Stand Alone Forms: AA Meetings Dist 22 & 24 - [facility], Outpatient Counseling, Inp Substance Abuse Facilities Discharge Disposition: HOME SELF-CARE
== END 2023-08-11 14:04 | disposition home or self-care (01) ==
LOC: EC 13:25 → 6NMEDSUR 16:21 → 1SOBS 08-09 16:19
PROVIDERS: ADMIT Internal Medicine; ATTEND Internal Medicine
DX: R55 Syncope and collapse (principal); F14.10 Cocaine abuse, uncomplicated; R82.71 Bacteriuria; R41.82 Altered mental status, unspecified; R29.6 Repeated falls; J44.9 Chronic obstructive pulmonary disease, unspecified; I10 Essential (primary) hypertension; G47.30 Sleep apnea, unspecified; F31.30 Bipolar disorder, current episode depressed, mild or moderate severity, unspecified; F41.9 Anxiety disorder, unspecified; G40.909 Epilepsy, unspecified, not intractable, without status epilepticus; M79.7 Fibromyalgia; G89.29 Other chronic pain; E03.9 Hypothyroidism, unspecified; F43.10 Post-traumatic stress disorder, unspecified; S82.892A Other fracture of left lower leg, initial encounter for closed fracture; S82.891A Other fracture of right lower leg, initial encounter for closed fracture; X58.XXXA Exposure to other specified factors, initial encounter; Z86.14 Personal history of Methicillin resistant Staphylococcus aureus infection; Z86.73 Personal history of transient ischemic attack (TIA), and cerebral infarction without residual deficits; Z87.891 Personal history of nicotine dependence; Z79.1 Long term (current) use of non-steroidal anti-inflammatories (NSAID); Z79.51 Long term (current) use of inhaled steroids; Z79.890 Hormone replacement therapy; Z79.899 Other long term (current) drug therapy; Z91.040 Latex allergy status
CPT/HCPCS: 96372 ×2; 96375; 96374; 99285; 36415; 95816; 93005; 97162; 80164; 80053; 80048; 80183; 80178; 83735 ×2; 84484; 85025 ×2; 81001; 80306; 80320; 71100; 71045; 72125; 70486; 70450; G0378 ×4; J2270; J1644 ×2; J2405

== ENCOUNTER → 2023-09-14 | Outpatient (CLI) | payer MEDICARE ==
--- NOTE | 2023-09-22 22:05 | MM ---
Reason for Exam: Screening (asymptomatic). Last mammogram was performed 2 year(s) and 3 month(s) ago. Patient History: Menarche at age 15. First Full-Term at age 23. Postmenopausal. Patient has history of breast feeding. Hormonal Contraceptives, starting at age 22. Maternal aunt had breast cancer. Maternal aunt had breast cancer. Mother had breast cancer, age 79. Risk Values: [place] 5 year model risk: 3.2%. NCI Lifetime model risk: 11.3%. Prior Study Comparison: 04/01/2020 Bilateral Diagnostic Mammogram, [facility]. 10/03/2020 Right Diagnostic Mammogram, [facility]. 06/12/2021 Bilateral Diagnostic Mammogram, [facility]. Tissue Density: There are scattered areas of fibroglandular density. Findings: Analyzed By CAD. Unchanged global asymmetry left upper outer quadrant. Other areas of asymmetric density are also unchanged. A few benign oil cyst calcifications. There is no suspicious group of microcalcifications or new suspicious mass in either breast. Overall Assessment: Benign, BI-RAD 2 Management: Screening Mammogram of both breasts in 1 year. See note below in regards to the patient's increased 5 year [place] score. Patient should continue monthly self-breast exams. A clinical breast exam by your physician is recommended on an annual basis. This exam should not preclude additional follow-up of suspicious palpable abnormalities. Note on [place] scores and lifetime risk: 1. A [place] score greater than 3% is considered moderate risk. If this is the case, consider specialist referral to assess eligibility for a risk reducing agent. 2. If overall lifetime risk for the development of breast cancer is 20% or higher, the patient may qualify for future screening with alternating mammogram and breast MRI. Electronically signed and approved by: Eber Colindres M.D. Radiologist
== END | disposition home or self-care (01) ==
LOC: RADMAMWWP 11:07
PROVIDERS: ATTEND Family Medicine
DX: Z12.31 Encounter for screening mammogram for malignant neoplasm of breast (principal); R92.323 Mammographic fibroglandular density, bilateral breasts; Z78.0 Asymptomatic menopausal state; Z80.3 Family history of malignant neoplasm of breast
CPT/HCPCS: 77063; 77067

== ENCOUNTER 2023-10-10 16:19 | Inpatient (IN) | payer MEDICARE ==
[2023-10-10 16:29] VITALS: TEMP 97.1
[2023-10-10 16:49] LABS: Glucose,Whole Blood 87 mg/dL (70-110)
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
[2023-10-10 16:55] LABS: Anisocytosis Slight; Basophils % (A) 0 %; Eosinophils # (A) 0.1 k/uL (0-0.7); Eosinophils % (A) 2 %; HCT 35.6 % (34.0-46.0); HGB 11.1 gm/dL (11.4-16.0); Hypochromasia Marked; Lymphocytes # (A) 1.6 k/uL (1.0-4.8); Lymphocytes % (A) 24 %; MCH 28.4 pg (25.0-35.0); MCHC 31.3 g/dL (31.0-37.0); MCV 90.6 fL (80.0-100.0); Mean Platelet Volume 10.2; Monocytes # (A) 0.4 k/uL (0-1.0); Monocytes % (A) 6 %; Neutrophils # (A) 4.4 k/uL (1.3-7.7); Neutrophils % (A) 67 %; Platelet Count 118 k/uL (150-450); RBC 3.93 m/uL (3.80-5.40); RDW 17.5 % (11.5-15.5); WBC 6.6 k/uL (3.8-10.6)
--- NOTE | 2023-10-10 18:20 | CT ---
EXAMINATION TYPE: CT brain cspine wo con, CT facial bones wo con CT DLP: Combined DLP of 1032.7 mGycm, Automated exposure control for dose reduction was used. DATE OF EXAM: 10/10/2023 6:11 PM COMPARISON: 08/08/2023 CLINICAL INDICATION:Female, 68 years old with history of ams; fall, ams TECHNIQUE: Brain: Multiple axial CT images of the brain were obtained without IV contrast. Cspine: Axial CT images from the skull base to the inferior aspect of T2 we obtained without intraven ous contrast. Coronal and sagittal reformatted images were also reviewed. Facial: Axial imaging of the facial structures with sagittal and coronal reformats. FINDINGS: Brain: Extra-axial spaces: No abnormal extra-axial fluid collections. Ventricular system: Within normal limits Cerebral parenchyma: No acute intraparenchymal hemorrhage or mass effect. The lopez-white junction is well differentiated. Cerebellum: Unremarkable. Mass effect: No evidence of midline shift. Intracranial vasculature: unremarkable Soft tissues: Normal. Calvarium/osseous structures: No depressed skull fracture. Paranasal sinuses and mastoid air cells: Clear. Visualized orbits: Bilateral aphakia. Cervical spine: Fracture: None. Osseous structures: Station hardware appears intact. There is ankylosis of the C5 and C6 vertebral jyotsna dies. Incomplete fusion of C6-C7 vertebral bodies.. Multilevel degenerative disc disease changes with endplate spurring and disc osteophyte complex's. Vertebral alignment: Straightening of the spine. Spinal canal/Neural Foramina: No evidence of significant spinal canal narrowing. No evidence for sign ificant neural foraminal stenosis. Neck soft tissues: Prevertebral soft tissues are within normal limits. Other: The airway is patent. The lung apices are clear. Facial: Left frontal scalp edema. The right nasal bone is displaced posteriorly up to 3 mm. There is soft tissue swelling within the bone.r the nasal septum is broken series 206 image 21 and displaced l eftward Temporal-mandibular joints appear symmetric. The visualized portion of the paranasal sinuses appear c lear. IMPRESSION: 1. No evidence for acute intracranial process. 2. Right nasal bone fracture with nasal septum fracture and mild displacement of each. 3. Left frontal scalp edema. 4. Multilevel degeneration changes of the spine with fixation hardware present. Pseudoarthrosis of t he C6-C7 vertebral bodies. However fusion of C5-C6 vertebral bodies. Hardware is intact.
[2023-10-10 18:23] LABS: ALT 19 U/L (4-34); AST 32 U/L (14-36); Acetaminophen <10.0 ug/mL; African American GFR (CKD) >90 (>60 ml/min/1.73 sqM); Albumin 3.6 g/dL (3.5-5.0); Alcohol <10 mg/dL; Alkaline Phosphatase 82 U/L (38-126); Anion Gap 6 mmol/L; Blood Urea Nitrogen 16 mg/dL (7-17); Carbon Dioxide 19 mmol/L (22-30); Chloride 114 mmol/L (98-107); Glucose 96 mg/dL (74-99); Magnesium 2.1 mg/dL (1.6-2.3); Non-African American GFR(CKD) >90 (>60 ml/min/1.73 sqM); Phenytoin (Dilantin) <3.0 ug/mL; Potassium 3.8 mmol/L (3.5-5.1); Salicylate 16.6 mg/dL; Sodium 139 mmol/L (137-145); Total Bilirubin 0.4 mg/dL (0.2-1.3); Total Protein 6.1 g/dL (6.3-8.2)
[2023-10-10 18:26] LABS: Valproic Acid (Depakene) <10.0 ug/mL
[2023-10-10] MEDS: HYDROmorphone 0.5 MG/0.5 ML SYRINGE IVP STA (19:33)
[2023-10-10] MEDS: LORazepam 2 MG/ML INJ IV STA ×2 (19:35→20:39)
[2023-10-10] MEDS ORDERED: NALOXONE 0.4 MG/ML 1 ML VIAL IV PRN (19:47)
[2023-10-10] MEDS ORDERED: ONDANSETRON 4 MG/2 ML VIAL IVP PRN (19:47)
[2023-10-10] MEDS: SODIUM CHLORIDE 0.9% 1,000 ML IV STA (20:00)
[2023-10-10] MEDS: levETIRAcetam IV 500 MG/5 ML VIAL IVP STA (20:01)
[2023-10-10] MEDS: SODIUM CHLORIDE 0.9% 1,000 ML IV SCH (20:01)
[2023-10-10] MEDS: levETIRAcetam IV 500 MG/5 ML VIAL IVP SCH (20:11)
[2023-10-11] MEDS: MORPHINE SULFATE 4 MG/ML SYRINGE IV PRN ×2 (01:35)
[2023-10-11] MEDS: LORazepam 2 MG/ML INJ IV PRN (02:30)
[2023-10-11] MEDS: LORazepam 2 MG/ML INJ IV STA (04:14)
[2023-10-11 06:24] VITALS: BP 161/79; PULSE 95; RESP 20
[2023-10-11 08:05] LABS: Glucose,Whole Blood 98 mg/dL (70-110)
[2023-10-11] MEDS ORDERED: levETIRAcetam IV 500 MG/5 ML VIAL ONE ×2 (11:49→20:26)
[2023-10-11] MEDS ORDERED: MORPHINE SULFATE 4 MG/ML SYRINGE ONE ×3 (16:45→23:36)
[2023-10-11] MEDS ORDERED: ONDANSETRON 4 MG/2 ML VIAL ONE (20:35)
[2023-10-12] MEDS ORDERED: LORazepam 2 MG/ML INJ ONE ×2 (00:43→15:59)
[2023-10-12] MEDS ORDERED: MORPHINE SULFATE 4 MG/ML SYRINGE ONE ×5 (03:25→19:17)
[2023-10-12] MEDS ORDERED: ONDANSETRON 4 MG/2 ML VIAL ONE (04:06)
[2023-10-12] MEDS ORDERED: SODIUM CHLORIDE 0.9% 1,000 ML BAG ONE (05:20)
[2023-10-12] MEDS ORDERED: levETIRAcetam IV 500 MG/5 ML VIAL ONE ×2 (08:15→20:07)
[2023-10-12] MEDS ORDERED: HEPARIN SODIUM,PORCINE 5,000 UNIT/ML 1 ML VIAL ONE (22:21)
[2023-10-12] MEDS ORDERED: HYDROcodone/APAP 5-325MG 1 EACH TAB ONE ×2 (22:21)
[2023-10-12] MEDS ORDERED: FAMOTIDINE 20 MG/2 ML VIAL ONE ×2 (22:21)
[2023-10-13] MEDS ORDERED: MORPHINE SULFATE 4 MG/ML SYRINGE ONE ×3 (01:36→13:28)
[2023-10-13] MEDS ORDERED: LORazepam 2 MG/ML INJ ONE (03:42)
[2023-10-13] MEDS ORDERED: HYDROcodone/APAP 5-325MG 1 EACH TAB ONE ×4 (06:21→21:55)
[2023-10-13] MEDS ORDERED: LEVOTHYROXINE 25 MCG TAB ONE (06:21)
[2023-10-13] MEDS ORDERED: levETIRAcetam IV 500 MG/5 ML VIAL ONE (09:23)
[2023-10-13] MEDS ORDERED: FAMOTIDINE 20 MG TAB ONE ×2 (21:54)
[2023-10-13] MEDS ORDERED: HEPARIN SODIUM,PORCINE 5,000 UNIT/ML 1 ML VIAL ONE (21:54)
[2023-10-14] MEDS ORDERED: SYMBICORT 80-4.5 MCG INHALER INHALATION ONE (00:01)
[2023-10-14] MEDS ORDERED: levETIRAcetam IV 500 MG/5 ML VIAL ONE ×2 (01:14→13:25)
[2023-10-14] MEDS ORDERED: MORPHINE SULFATE 4 MG/ML SYRINGE ONE ×4 (01:14→17:25)
[2023-10-14] MEDS ORDERED: LORazepam 2 MG/ML INJ ONE ×2 (02:51→08:50)
[2023-10-14] MEDS ORDERED: HYDROcodone/APAP 5-325MG 1 EACH TAB ONE ×6 (04:21→20:52)
[2023-10-14] MEDS ORDERED: LEVOTHYROXINE 75 MCG TAB ONE (07:41)
[2023-10-14] MEDS ORDERED: FLUoxetine HCL 20 MG CAP ONE (08:49)
[2023-10-14] MEDS ORDERED: HEPARIN SODIUM,PORCINE 5,000 UNIT/ML 1 ML VIAL ONE ×2 (08:49→20:52)
[2023-10-14] MEDS ORDERED: FAMOTIDINE 20 MG TAB ONE ×2 (08:49)
[2023-10-14] MEDS ORDERED: LACTULOSE 20 GM/30 ML CUP ONE ×2 (20:52)
[2023-10-15] MEDS ORDERED: SYMBICORT 80-4.5 MCG INHALER INHALATION ONE (00:01)
[2023-10-15] MEDS ORDERED: SODIUM CHLORIDE 0.9% 1,000 ML BAG ONE ×2 (00:01)
[2023-10-15] MEDS ORDERED: MORPHINE SULFATE 4 MG/ML SYRINGE ONE ×4 (00:27→17:15)
[2023-10-15] MEDS ORDERED: levETIRAcetam IV 500 MG/5 ML VIAL ONE ×2 (00:35→12:46)
[2023-10-15] MEDS ORDERED: LORazepam 2 MG/ML INJ ONE ×2 (02:03→02:14)
[2023-10-15] MEDS ORDERED: HYDROcodone/APAP 5-325MG 1 EACH TAB ONE ×8 (06:57→20:28)
[2023-10-15] MEDS ORDERED: HEPARIN SODIUM,PORCINE 5,000 UNIT/ML 1 ML VIAL ONE ×2 (09:16→20:27)
[2023-10-15] MEDS ORDERED: LACTULOSE 20 GM/30 ML CUP ONE ×4 (09:16→20:28)
[2023-10-15] MEDS ORDERED: FAMOTIDINE 20 MG TAB ONE ×2 (09:16)
[2023-10-15] MEDS ORDERED: FLUoxetine HCL 20 MG CAP ONE (09:16)
[2023-10-15] MEDS ORDERED: QUEtiapine 25 MG TAB ONE (20:28)
[2023-10-16] MEDS ORDERED: SYMBICORT 80-4.5 MCG INHALER INHALATION ONE (00:01)
[2023-10-16] MEDS ORDERED: levETIRAcetam IV 500 MG/5 ML VIAL ONE ×2 (01:05→17:18)
[2023-10-16] MEDS ORDERED: HYDROcodone/APAP 5-325MG 1 EACH TAB ONE ×4 (02:28→08:52)
[2023-10-16] MEDS ORDERED: ACETAMINOPHEN TAB 325 MG TAB ONE ×2 (05:47)
[2023-10-16] MEDS ORDERED: FAMOTIDINE 20 MG TAB ONE ×2 (08:48)
[2023-10-16] MEDS ORDERED: HEPARIN SODIUM,PORCINE 5,000 UNIT/ML 1 ML VIAL ONE ×2 (08:49→20:26)
[2023-10-16] MEDS ORDERED: LACTULOSE 20 GM/30 ML CUP ONE ×4 (08:50→20:26)
[2023-10-16] MEDS ORDERED: FLUoxetine HCL 20 MG CAP ONE (08:51)
[2023-10-16] MEDS ORDERED: MORPHINE SULFATE 2 MG/ML SYRINGE ONE ×2 (11:54)
[2023-10-16] MEDS ORDERED: HYDROcodone/APAP 10-325MG 1 EACH TAB ONE ×4 (14:33→20:26)
[2023-10-16] MEDS ORDERED: DEXAMETHASONE SOD PHOSPHATE 4 MG/ML 1 ML VIAL ONE (17:19)
[2023-10-16] MEDS ORDERED: QUEtiapine 25 MG TAB ONE (20:26)
[2023-10-17] MEDS ORDERED: traZODone HCL 50 MG TAB ONE (00:01)
[2023-10-17] MEDS ORDERED: SYMBICORT 80-4.5 MCG INHALER INHALATION ONE (00:01)
[2023-10-17] MEDS ORDERED: ACETAMINOPHEN TAB 325 MG TAB ONE ×6 (00:29→17:23)
[2023-10-17] MEDS ORDERED: levETIRAcetam IV 500 MG/5 ML VIAL ONE ×2 (01:10→14:00)
[2023-10-17] MEDS ORDERED: DEXAMETHASONE SOD PHOSPHATE 4 MG/ML 1 ML VIAL ONE ×4 (01:10→17:24)
[2023-10-17] MEDS ORDERED: HYDROcodone/APAP 10-325MG 1 EACH TAB ONE ×8 (02:39→20:17)
[2023-10-17] MEDS ORDERED: amLODIPine 5 MG TAB ONE (11:06)
[2023-10-17] MEDS ORDERED: MORPHINE SULFATE 2 MG/ML SYRINGE ONE ×2 (11:15)
[2023-10-17] MEDS ORDERED: DICYCLOMINE 10 MG CAP ONE ×2 (14:23→20:18)
[2023-10-17] MEDS ORDERED: HEPARIN SODIUM,PORCINE 5,000 UNIT/ML 1 ML VIAL ONE (20:17)
[2023-10-17] MEDS ORDERED: FAMOTIDINE 20 MG TAB ONE ×2 (20:17)
[2023-10-18] MEDS ORDERED: SYMBICORT 160-4.5 MCG INHALER INHALATION ONE (00:01)
[2023-10-18] MEDS ORDERED: DEXAMETHASONE SOD PHOSPHATE 4 MG/ML 1 ML VIAL ONE ×2 (00:01→05:58)
[2023-10-18] MEDS ORDERED: DICYCLOMINE 10 MG CAP ONE ×3 (02:21→15:04)
[2023-10-18] MEDS ORDERED: HYDROcodone/APAP 10-325MG 1 EACH TAB ONE ×6 (02:21→15:02)
[2023-10-18] MEDS ORDERED: FAMOTIDINE 20 MG TAB ONE ×2 (08:19)
[2023-10-18] MEDS ORDERED: HEPARIN SODIUM,PORCINE 5,000 UNIT/ML 1 ML VIAL ONE (08:19)
[2023-10-18] MEDS ORDERED: FLUoxetine HCL 20 MG CAP ONE (08:19)
[2023-10-18] MEDS ORDERED: amLODIPine 10 MG TAB ONE (08:19)
[2023-10-18] MEDS ORDERED: MORPHINE SULFATE 2 MG/ML SYRINGE ONE ×2 (11:45)
--- NOTE | 2023-11-02 11:14 | CT ---
EXAM: CT Abdomen and Pelvis With Intravenous Contrast CLINICAL HISTORY: pain TECHNIQUE: Axial computed tomography images of the abdomen and pelvis with intravenous contrast. CTDI is 19.6 mGy and DLP is 920.7 mGy-cm. This CT exam was performed using one or more of the following dose reduction techniques: automated exposure control, adjustment of the mA and/or kV according to patient size, and/or use of iterative reconstruction technique. COMPARISON: No relevant prior studies available. FINDINGS: Lung bases:Unremarkable. No mass. No consolidation. ABDOMEN: Liver:Hepatic steatosis. Gallbladder and bile ducts:Unremarkable. No calcified stones. No ductal dilation. Pancreas:Unremarkable. No mass. No ductal dilation. Spleen:Unremarkable. No splenomegaly. Adrenals:Unremarkable. No mass. Kidneys and ureters:Unremarkable. No solid mass. No hydronephrosis. Stomach and bowel: Moderate fecal retention, correlate for constipation. Diverticulosis, without acute diverticulitis. No small bowel obstruction. No free intraperitoneal air. PELVIS: Appendix:No acute appendicitis. Bladder: Stern catheter terminates in the urinary bladder. Reproductive:Unremarkable as visualized. ABDOMEN and PELVIS: Intraperitoneal space:Unremarkable. No free air. No significant fluid collection. Bones/joints:Degenerative changes of the spine. Posterior fusion at L5-S1. No acute fracture. No dislocation. Soft tissues:Unremarkable. Vasculature:Atherosclerotic changes of the aorta. No abdominal aortic aneurysm. Lymph nodes:Unremarkable. No enlarged lymph nodes. IMPRESSION: 1. Moderate fecal retention, correlate for constipation. 2. Diverticulosis, without acute diverticulitis. No small bowel obstruction. No free intraperitoneal air. Radiologist: Dariel Hector MD Electronically Signed: 10/14/23 03:08 Study ready at 02:45 and initial results transmitted at 03:08 [facility]
--- NOTE | 2023-11-09 20:55 | CT ---
EXAM: CT Head Without Intravenous Contrast CLINICAL HISTORY: AMS, prior on synapse. Pt had a brain/c spine & facial bones CT on 10/10/23 @ 1759 while in ER. Inpatient dr unable to access images or reports. Known nasal bone fx per RN. TECHNIQUE: Axial computed tomography images of the head/brain without intravenous contrast. CTDI is 49.2 mGy and DLP is 1491.3 mGy-cm. This CT exam was performed using one or more of the following dose reduction techniques: automated exposure control, adjustment of the mA and/or kV according to patient size, and/or use of iterative reconstruction technique. COMPARISON: Prior head CT from July 06, 2023. FINDINGS: Brain:Remote ischemic injuries of the occipital lobes with encephalomalacia and gliosis. No hemorrhage. No significant white matter disease. No edema. Ventricles:Unremarkable. No ventriculomegaly. Bones/joints:Hyperostosis frontalis and temporalis interna. Mildly displaced right nasal bone fracture. Mildly displaced and comminuted nasal septal fracture. Soft tissues: Mild soft tissue swelling over the left forehead. Moderate soft tissue swelling about the nose. Sinuses:Unremarkable as visualized. No acute sinusitis. Mastoid air cells:Unremarkable as visualized. No mastoid effusion. IMPRESSION: No evidence of acute intracranial pathology. Mildly displaced right nasal bone fracture and nasal septal fracture. Radiologist: Palmira Salgado MD Electronically Signed: 10/12/23 05:48 Study ready at 05:00 and initial results transmitted at 05:48 [facility]
--- NOTE | 2023-11-11 15:30 | MR ---
Nataly Vick : 1955 EXAMINATION TYPE: MR lumbar spine wo con DATE OF EXAM: 10/15/2023 COMPARISON: None available during downtime HISTORY: 68-year-old female with altered mental status, confusion, pain TECHNIQUE: Multiplanar, multisequence images of the lumbar spine without contrast. This is a limited study as the patient was in pain and axial T2 or sagittal STIR sequences cannot be completed. The pat ient stopped the exam. FINDINGS: The patient is status post L5-S1 posterior and interbody fusion with laminectomy. There is a fluid co llection within the laminectomy measuring 4.0 cm wide by 5.1 cm craniocaudal by 2.3 cm AP. There is additional interbody fusion extending up to the L3 level. Mild degenerative disc disease along the nonfused levels upper and mid lumbar spine with mild interve rtebral disc desiccation and diffuse disc bulging. Moderate hypertrophic facet arthropathy along the nonfused levels. Reversal of the normal lumbar lordosis but with preserved alignment. Vertebral body heights are prese rved. No suspicious bone marrow replacement. Bulging discs impress on the ventral thecal sac and contributing to mild narrowing of the spinal geri l at T12-L1, L1-L2, and L2-L3. No large focal disc herniation or significant spinal canal stenosis is seen. On the right, residual hyperostotic changes contribute to moderate neural foraminal stenosis at L5-S1 . Also at L4-L5. Mild at L3-L4. On the left, there is mild bony neuroforaminal narrowing at L4-L5. Minimal inferior narrowing at L3-L 4. IMPRESSION: 1. Note that this is a limited study as the patient prematurely stopped the exam due to pain. 2. Status post L3-S1 posterior and interbody fusion. Laminectomy change at L5/S1. 3. There is a fluid collection in the laminectomy bed measuring 5.1 x 4.0 x 2.3 cm, probably chronic postoperative seroma. Correlate to exclude infective fluid. 4. Mild degenerative disc disease and moderate facet arthropathy along the nonfused levels. Bulging d isc contribute to mild narrowing of the spinal canal from T12 through L3 levels. No significant spina l canal stenosis. 5. Residual bony hyperostotic changes results in moderate right neuroforaminal stenosis at L4-L5 and L5-S1. 6. Reversal of the normal lumbar lordosis but with preserved alignment. No vertebral compression noe apse.
--- NOTE | 2023-11-11 16:45 | MR ---
Nataly Vick : 1955 EXAMINATION TYPE: MR cervical spine wo con DATE OF EXAM: 10/14/2023 COMPARISON: None available during downtime HISTORY: 68-year-old female with altered mental status, pain TECHNIQUE: Multiplanar, multisequence images of the cervical spine were obtained without IV contrast. FINDINGS: No craniocervical junction abnormality, predental space widening, or prevertebral soft tissue swellin g. No suspicious bone marrow replacement. Postsurgical change of C4-C7 ACDF. Straightening of the normal cervical lordosis with preserved alignment. Mild degenerative disc desiccation along the nonfused levels. Minimal posterior disc bulge C3-C4. The re is residual posterior osteophytic ridging along the fused levels. Changes resulting mild diffuse spinal canal narrowing throughout the cervical spine. The posterior os teophytic ridging at C5-C6 and C6-C7 causes more moderate narrowing of the spinal canal especially at C6-C7 where there is abutment and flattening of the ventral cord. No T2-weighted cord signal abnormality is seen. At C2-C3, no neuroforaminal stenosis. At C3-C4, facet arthropathy left greater than right. No significant neuroforaminal stenosis. At C4-C5, facet and uncovertebral joint arthropathy is present. Changes within moderate right and mil d left neuroforaminal stenosis. At C5-C6, residual hyperostotic changes of the uncovertebral and facet joints. Changes result in mode rate left and mild right neuroforaminal stenosis. At C6-C7, disc osteophyte complex with contiguous uncovertebral joint facet arthropathy contributes t o moderate to severe bilateral neuroforaminal stenosis. At C7-T1, facet arthropathy left greater than right. No significant neural foraminal stenosis. IMPRESSION: 1. Status post C4-C7 ACDF. There is residual posterior osteophytic ridging at both C5-C6 and C6-C7 co ntributing to moderate spinal canal stenosis, greatest at C6-C7 where there is abutment and flattenin g of the ventral cord. No high-grade canal compromise or cord compression seen. 2. Mild generalized spinal canal narrowing throughout the remainder of the cervical spine. 3. Additional uncovertebral joint and facet hypertrophy contributing to variable neuroforaminal steno ses as outlined above. Moderate to severe on both sides at C6-C7.
--- NOTE | 2023-11-12 13:39 | CT ---
EXAM: CT Head or Brain w/o Contrast DATE OF EXAM: 10/13/23 INDICATION: Patient age:KARLA DELGADO : 1955 Reason for study: ALTERED MENTAL STATUS. COMPARISON: 10/12/2023, please note PACS downtime occurred during the radiologist interpretation of the se images with limited priors/reports. TECHNIQUE: Multiple axial CT images of the brain were obtained without IV contrast. One or more CT do se reduction strategies were utilized during this examination. Total DLP administered was 1125.4 mGyc m. FINDINGS: Extra-axial spaces: No abnormal extra-axial fluid collections. Ventricular system: Within normal limits Cerebral parenchyma: Remote injury to the occipital lobes bilaterally. No acute intraparenchymal hemo rrhage or mass effect. The lopez-white junction is well differentiated. Cerebellum: Unremarkable. Mass effect: No evidence of midline shift. Intracranial vasculature: unremarkable Soft tissues: Normal. Calvarium/osseous structures: No depressed skull fracture. Paranasal sinuses and mastoid air cells: Clear. Visualized orbits: Bilateral aphakia Redemonstration of nasal septum fracture with displacement. Redemonstration of nasal bone fracture. IMPRESSION: 1. No acute intracranial process. 2. Redemonstration of nasal septum fracture with displacement. Redemonstration of nasal bone frac ture.
== END 2023-10-18 16:32 | disposition home or self-care (01) | DRG 948 ==
LOC: EC 16:19 → SUPCPDRO 16:19 → 4SSUR 19:47
PROVIDERS: ADMIT Surgery; ATTEND Surgery
DX: R41.82 Altered mental status, unspecified (principal); F05 Delirium due to known physiological condition; E03.9 Hypothyroidism, unspecified; Z79.890 Hormone replacement therapy; M48.02 Spinal stenosis, cervical region; R29.6 Repeated falls; Z91.81 History of falling; S02.2XXA Fracture of nasal bones, initial encounter for closed fracture; W05.0XXA Fall from non-moving wheelchair, initial encounter; F31.9 Bipolar disorder, unspecified; F43.10 Post-traumatic stress disorder, unspecified; G40.909 Epilepsy, unspecified, not intractable, without status epilepticus; I10 Essential (primary) hypertension; J44.9 Chronic obstructive pulmonary disease, unspecified; M79.7 Fibromyalgia; Z79.1 Long term (current) use of non-steroidal anti-inflammatories (NSAID); Z79.82 Long term (current) use of aspirin; Z86.59 Personal history of other mental and behavioral disorders; Z86.73 Personal history of transient ischemic attack (TIA), and cerebral infarction without residual deficits; G47.30 Sleep apnea, unspecified; G89.29 Other chronic pain; Z87.440 Personal history of urinary (tract) infections; K58.9 Irritable bowel syndrome, unspecified; D50.9 Iron deficiency anemia, unspecified; G43.909 Migraine, unspecified, not intractable, without status migrainosus; Z87.891 Personal history of nicotine dependence; Z91.199 Patient's noncompliance with other medical treatment and regimen due to unspecified reason
CPT/HCPCS: 36415; 51798; 70450; 70486; 72125; 72141; 72148; 74177; 80048; 80053; 80143; 80164; 80179; 80185; 80320; 81003; 82607; 82746; 83735; 84439; 84443; 85025; 87077; 87086; 87186; 93005; 94640; 96374; 96375; 99285

== ENCOUNTER 2023-10-20 18:30 | Emergency (ER) | payer MEDICARE ==
[2023-10-20] MEDS ORDERED: MORPHINE SULFATE 4 MG/ML SYRINGE ONE (19:34)
[2023-10-20] MEDS ORDERED: DIPH,PERTUS(ACELL)TETVAC-LF 0.5 ML VIAL IM ONE (19:35)
[2023-10-20] MEDS ORDERED: LIDOCAINE 1% INJ 10MG/ML (20 ML MDV) ONE (19:35)
[2023-10-20] MEDS ORDERED: ACET/COD 300 MG/30 MG STARTER PACK 6 TAB BTL PO ONE (23:23)
--- NOTE | 2023-11-18 18:16 | CT ---
EXAM: CT brain without contrast. CT cervical spine without contrast. DATE: 10/20/2023 21:34 INDICATION: FALL/LACERATION COMPARISON: None, please note PACS downtime occurred during the radiologist interpretation of these i mages with limited priors/reports.. TECHNIQUE: Multiple axial CT images of the brain were obtained without IV contrast. Axial CT images from the skull base to the inferior aspect of T2 we obtained without intravenous cont rast. Coronal and sagittal reformatted images were also reviewed. One or more CT dose reduction strategies were utilized during this examination. Total DLP administered was 1265.6 mGycm . FINDINGS: CT BRAIN: Extra-axial spaces: No abnormal extra-axial fluid collections. Ventricular system: Within normal limits Cerebral parenchyma: No white matter changes in the occipital lobes bilaterally. No acute intraparenc hymal hemorrhage or mass effect. The lopez-white junction is well differentiated. Cerebellum: Unremarkable. Mass effect: No evidence of midline shift. Intracranial vasculature: unremarkable Soft tissues: Left periorbital subcutaneous gas/laceration. Calvarium/osseous structures: No depressed skull fracture. Paranasal sinuses and mastoid air cells: Clear. Visualized orbits: Orbital contents are intact. CT CERVICAL SPINE: Fracture: None. Osseous structures: Abandoned hardware at C5-C6. Additional hardware as C5-C6 and C6-C7 which appears intact. Multilevel degenerative disc disease changes with endplate spurring and disc osteophyte comp francheska's. Vertebral alignment: Within normal limits. Spinal canal/Neural Foramina: No evidence of significant spinal canal narrowing. No evidence of signi ficant neural foramina narrowing. Neck soft tissues: Prevertebral soft tissues are within normal limits. Other: The airway is patent. The lung apices are clear. IMPRESSION: 1. No acute intracranial process. 2. Left periorbital laceration without evidence of fracture. 3. Chronic appearing injuries to the occipital lobes 4. No evidence of cervical spine fracture. 5. Mild no multilevel degenerative disc disease.
== END 2023-10-20 23:28 | disposition home or self-care (01) ==
LOC: EC 18:30
CPT/HCPCS: 12001; 70450; 72125; 90471; 90715; 96372; 99283

== ENCOUNTER → 2023-12-30 | Outpatient (CLI) | payer MEDICARE | END | disposition home or self-care (01) | LOC: LABWHC1 10:03 | PROVIDERS: ATTEND Orthopaedic Surgery | CPT/HCPCS: 86850; 86870; 86880; 86900; 86901; 87070 ==

== ENCOUNTER 2024-01-03 05:38 | Inpatient (IN) | payer MEDICARE ==
[~2024-01-03 05:38] MED LIST changes: +ACETAMINOPHEN TAB 500 MG TAB PO PRN; +GABAPENTIN 300 MG CAP PO PRN; +ONDANSETRON 4 MG/2 ML VIAL IVP PRN; -SODIUM CHLORIDE 0.9% 1,000 ML IV SCH; +TRANEXAMIC 1,000 MG/100ML-NACL 1,000 MG in SALINE 1 100ML.BAG IVPB PRN
== END 2024-02-01 13:19 | disposition home or self-care (01) | DRG 951 ==
LOC: 2ORMAIN 05:38
PROVIDERS: ADMIT Orthopaedic Surgery; ATTEND Orthopaedic Surgery
DX: Z53.9 Procedure and treatment not carried out, unspecified reason (principal)